=== PATIENT | male | born 1950 | race Caucasian/White ===

== ENCOUNTER → 2017-02-11 | Outpatient (CLI) | payer OTHER ==
--- NOTE | 2017-02-11 10:33 | DIAGNOSTIC IMAGING REPORT ---
CHEST CT WITHOUT CONTRAST CT DOSE: 510.43 mGycm HISTORY: Pulmonary nodule R91.1 Pulmonary [id number] TECHNIQUE: Multiaxial CT images of the chest were performed without contrast. COMPARISON: 08/14/2016 FINDINGS: Unchanged 7 mm well-circumscribed nodule medial right middle lobe. No new or interval findings. Emphysematous changes are considered stable. There are no focal infiltrates. There is no significant mediastinal or hilar adenopathy. IMPRESSION: Stable exam. Unchanging 7 mm right middle lobe nodule. Follow-up per Fleischner criteria. Please refer to below summary of Fleischner criteria recommendations for follow-up of incidental CT nodules (Clay Mcbride, Guidelines for management of small pulmonary nodules detected on CT scans: A statement from the Fleischner Society, Radiology 237: [phone].) SOLID NODULES Solitary nodule size: <6 mm * low risk patients: no follow-up needed * high risk patients: optional CT at 12 months Solitary nodule size: 6-8 mm * low risk patients: follow-up at 6-12 months, then consider further follow-up at 18-24 months * high risk patients: initial follow-up CT at 6-12 months and then at 18-24 months if no change Solitary nodule size: >8 mm * either low or high risk patients - consider follow-up CT at 3 months, and/or CT-PET, and/or biopsy Multiple nodules size: <6 mm * low risk patients: no routine follow-up * high risk patients: optional CT at 12 months Multiple nodules size: 6-8 mm * low risk patients: follow-up at 3-6 months, then consider further follow-up at 18-24 months * high risk patients: follow-up at 3-6 months, then at 18-24 months if no change Multiple nodules size: >8 mm * low risk patients: follow-up at 3-6 months, then consider further follow-up at 18-24 months * high risk patients: follow-up at 3-6 months, then at 18-24 months if no change Note: newly detected indeterminate nodule in persons 35 years of age or older. * Low risk patients: minimal or absent history of smoking and/or other known risk factors * high risk patients: history of smoking or of other known risk factors (e.g. first degree relative with lung cancer, or exposure to asbestos, radon, uranium) * if a nodule up to 8 mm is partly solid or is ground glass further follow-up is required after 24 months to exclude possible slow growing adenocarcinoma (DALIA) SUBSOIL NODULES Solitary pure ground-glass nodule * nodule size <6 mm - no CT follow-up required * nodule size >=6 mm - follow-up CT at 6-12 months, then every 2 years until 5 years Solitary part-solid nodule * nodule size <6 mm - no CT follow-up required * nodule size >=6 mm - follow-up CT at 3-6 months. If unchanged, and solid component remains <6 mm, then annual follow-up for 5 years Multiple subsolid nodules * nodule size <6 mm - follow-up CT at 3-6 months, consider further follow-up at 2 and 4 years if stable * nodule size >=6 mm - follow-up CT at 3-6 months, subsequent management based on the most suspicious nodule(s) Electronically signed by: Jose Morris M.D. 02/11/2017 10:32 AM Dictated Date/Time: 02/11/2017 10:28 AM
== END | disposition home or self-care (01) ==
LOC: C.CTS 10:04
PROVIDERS: ATTEND Internal Medicine Pulmonary Disease
DX: R91.1 Solitary pulmonary nodule (principal)

== ENCOUNTER → 2018-02-11 | Outpatient (CLI) | payer OTHER ==
--- NOTE | 2018-02-11 09:48 | DIAGNOSTIC IMAGING REPORT ---
CT SCAN OF THE CHEST WITHOUT IV CONTRAST CLINICAL HISTORY: Follow-up pulmonary nodule. COMPARISON STUDY: Chest CT dated 02/11/2017 12/05/2015, and 03/04/2015. PET/CT dated 05/16/2015. TECHNIQUE: CT scan of the thorax was performed from the thoracic inlet to the upper abdomen. Images are reviewed in the axial, sagittal, and coronal planes. IV contrast was not administered for this examination as per the referring clinician. A dose lowering technique was utilized adhering to the principles of ALARA. CT DOSE: 727.98 mGy.cm FINDINGS: Thyroid: Atrophic. Thoracic aorta: There is atherosclerotic calcification of the thoracic aorta, which is normal in caliber and demonstrates standard 3-vessel arch anatomy. Heart: The heart is normal in size and without pericardial effusion. The coronary arteries are densely calcified. Lungs and pleural spaces: There is advanced emphysema. No airspace consolidation or pleural effusion is identified. The trachea and central airways are clear. Mild diffuse peribronchial thickening suggests reactive airway disease. There is a 1.3 x 0.9 cm slightly irregular nodule in the right middle lobe seen on image #23. This contains a large coarse calcification, and has not significantly changed dating back to 2014. A 3 mm pleural-based nodule in the right lower lobe seen image #168 is also unchanged from prior studies. No new pulmonary lesion is identified. Mediastinum: There is no mediastinal lymphadenopathy. Odalys: Not well assessed without IV contrast. Axillae: There is no axillary lymphadenopathy. Upper abdomen: A 7.5 cm cyst is partially visualized in the left kidney. 3.5 cm cyst is seen in the upper pole of the right kidney. Bilateral adrenal nodules measure up to 2.[address] criteria for fat-containing adenomas. Skeletal structures: The skeletal structures are osteopenic. No lytic or blastic bony lesions are seen. IMPRESSION: 1. Advanced emphysema. 2. There is no airspace consolidation or pleural effusion. Mild diffuse peribronchial thickening suggests reactive airway disease. Clinical correlation will be required. 3. A 1.3 cm nodule in the right middle lobe containing a coarse calcification has not significant changed in appearance to 2015. Although pathologically indeterminant, long-term stability and the morphologic characteristics suggest a benign etiology. 4. No new pulmonary lesion is identified. Electronically signed by: Norris Pulido M.D. 02/11/2018 9:47 AM Dictated Date/Time: 02/11/2018 9:37 AM
== END | disposition home or self-care (01) ==
LOC: C.CTS 09:22
PROVIDERS: ATTEND Internal Medicine Pulmonary Disease
DX: R93.8 Abnormal findings on diagnostic imaging of other specified body structures (principal); R91.1 Solitary pulmonary nodule; J43.9 Emphysema, unspecified

== ENCOUNTER 2023-04-05 17:29 | Inpatient (IN) ==
[2023-04-05] MEDS ORDERED: POLYETHYLENE (MIRALAX) 17 GM PACK PO PRN (20:28)
--- NOTE | 2023-04-05 20:42 | History & Physical Report ---
Date of Service April 05, 2023 Assessment & Plan (1) Right nephrolithiasis: Plan: 73yo Male with PMH DM2 aspiration PNA esophageal candidiasis, low BP on midodrine, GERD transferred from [facility] for weakness and R sided nephrolithiasis. R sided nephrolithiasis -per CT records from [facility], CD available -consult placed to urology -per [facility] records WBC 17.4 -UA ordered -ordered ceftriaxone 1g daily -ordered NSS 80ml/h 2L total -bladder scan as needed -am CBC, BMP CARLO -per [facility] records creat 1.55, received 1L IVF at [facility] -trend bmp Weakness -ordered PT/OT Hypotension -on midodrine 2.5mg BID GERD -continue protonix DM2 -ordered carb consistent diet -ordered SSI Esophageal candidiasis -patient is on fluconazole 100mg daily at home, uncertain how long he has been on medication, hold for now FENa: carb consistent, NPO midnight Code Status: full DVT PPX: SCDs PT/OT: ordered Dispo: med/tele Fadumo Gallego D.O. PGY 2, FCM (2) Weakness: (3) Low blood pressure: (4) DM2 (diabetes mellitus, type 2): (5) GERD (gastroesophageal reflux disease): (6) Esophageal candidiasis: Admission and Anticipated Discharge Date Admission Date: April 05, 2023 History of Present Illness Chief Complaint: Weakness Primary Care Provider: Jennifer Soni 73yo Male with PMH DM2 aspiration PNA esophageal candidiasis, low BP on midodrine, GERD transferred from [facility] for weakness and R sided nephrolithiasis. Per patient for the past week he has had poor appetite and weakness in his lower extremities, had difficulty walking, denies falls. Patient denies any recent sickness, fever chills nausea vomiting SOB diarrhea pain coughing sneezing, denies recent injury. States he feels hungry now. Normally has BM once every few days. Patient lives with his son Russ, who helps with his medications. Per notes from [facility] patient had recent hospitalization for a UTI. He was brought to [facility] ED for low urine output and altered mental status, CT A/P found concern obstructing calculus on right UVJ, moderate stool burden, chronic pancreatitis. On labs he demonstrated WBC 17.4, creat 1.55. Copy of his CT imaging was sent along with his files. Patient received 1L IVF and 1 amp D50 in [facility] ED, was scheduled to receive ceftriaxone however was never administered. Patient's POA are his sons Russ and Miguel. Allergies Allergy/AdvReac Type Severity Reaction Status Date / Time No Known Allergies Allergy Unverified 04/05/23 21:27 Home Medications Medication Instructions Recorded Confirmed Type insulin aspart U-100 100 unit/mL subcut 04/05/23 History (3 mL) subcutaneous pen (Novolog FlexPen U-100 Insulin aspart) insulin glargine 100 unit/mL (3 unit subcut 04/05/23 History mL) subcutaneous pen (Lantus Solostar U-100 Insulin) magnesium oxide 400 mg (241.3 mg 400 mg PO DAILY 04/05/23 04/05/23 History magnesium) tablet midodrine 2.5 mg tablet 2.5 mg PO BID 04/05/23 04/05/23 History pantoprazole 40 mg tablet,delayed 40 mg PO DAILY 04/05/23 04/05/23 History release Past Med/Surg History Social History Smoking Status: Current every day smoker Cigarettes Per Day: 1 pack a day; Hx Alcohol Use: No Hx Substance Use: No Beliefs That Will Affect Care: None Current Living Situation: Family Other Information That Helps Us Care for You: No Feels Safe at Home: Yes Safety Concerns: Feels Safe At This Time Physical Exam Constitutional: well developed, well nourished, cooperative and comfortable Eyes: PERRL, conjunctivae normal, anicteric sclerae ENMT: external ear and nose normal, oropharynx normal Neck: trachea midline, no thyromegaly Respiratory: normal respiratory effort, lungs clear to auscultation Cardiovascular: Rate/Rhythm: regular rate and regular rhythm Gastrointestinal (Abdomen): Inspection/Auscultation: abdomen normal to inspection Percussion/Palpation: abdomen soft; abdomen nontender Musculoskeletal: Extremities: extremities normal to inspection moves all extremities Skin: no rashes, warm and dry Supervising Physician Co-Signing Physician Notes Attending addendum: I have physically seen this patient, have supervised the medical residents activities, and agree with the H&P unless as otherwise noted. Assessment and Plan: Right-sided nephrolithiasis/leukocytosis- Follow urine culture and sensitivity NSS at 80 mils per hour x2 L Ceftriaxone 1 g IV daily consult urology Acute kidney injury- Creatinine 1.55 at [facility] on admission Repeat laboratories now Hypotension- IV fluids Diabetes mellitus- NPO until seen by urology Placed on Accu-Cheks with NovoLog SSI Check hemoglobin A1c GERD- Continue pantoprazole Remaining orders and notations as noted Resident Activity Tracking Resident Involvement: Resident Care Provided Care Provided: Adult Hospital Medicine
--- NOTE | 2023-04-05 21:20 | Urology Consultation ---
Date of Consultation April 05, 2023 Assessment & Plan (1) Urinary retention: The patient has been admitted on the hospitalist service. From a urologic perspective we recommend the following: We are currently in the process of making attempts to place a Trinh catheter. Please refer to Dr. Corral's note regarding this procedure Recommend avoiding nephrotoxins Recommend providing gentle hydration with IV fluids Recommend following serial labs Additional recommendations be forthcoming based on his clinical course as it unfolds (2) Phimosis: Supervising Physician Co-Signing Physician Notes Attempted to place a catheter blindly as well as scope a catheter in but unsuccessful and patient was significantly uncomfortable. He unfortunately was fed prior to me seeing him. He will need to go to the OR emergently for cyst oscopy, possible urethral dilation with Trinh catheter placement, possible right retrograde pyelogram with right ureteral stent placement and possible dorsal slit versus circumcision with or without meatotomy, possible SP tube placement History of Present Illness Reason for Consultation: Urinary retention Phimosis Attending Physician: Vicky Arellano, DO History of Present Illness This is a 73-year-old male who was transferred to [facility] from [facility]. Patient proved to be a somewhat poor historian so history of present illness was primarily obtained from review of records and discussion with the admitting hospitalist. This patient has been noted to have increased weakness over the past week. Per reports the patient has not been eating and drinking very much and has had decreased urine output. Patient apparently had some difficulty standing today so he was taken to the emergency department at [facility]. While at [facility] [facility] the patient had labs and imaging. Imaging included a CT scan that showed a questionable punctate kidney stone at the right ureterovesical junction with mild hydronephrosis. Labs include a CBC her white blood cell count was elevated 17.4. Hemoglobin, hematocrit, and platelet count are all within normal range. Chemistry profile showed sodium and potassium are within normal range. BUN and creatinine were both elevated at 27 and 1.5. Patient was tested for influenza a and B as well as COVID-19 all of which were negative. While the [facility] emergency department the patient was noted to have a phimosis and he was noted to have urinary retention and attempts were made to place a Trinh catheter to no avail and therefore transfer to [facility] was arranged for urologic care. I visited with the patient at his bedside and at the present time the patient denies any complaints. He specifically does not have any chest pain or shortness of breath. The patient says he does not feel as though his bladder is full. To the best of his knowledge she has been able to urinate small amounts but could not provide any further details. Upon my arrival to the bedside I did asked the staff on the floor to BladderScan this patient and he was bladder scanned for approximately 550 to 650 cc. At the time of my interview he was resting comfortably in bed he was in no distress Allergies Allergy/AdvReac Type Severity Reaction Status Date / Time No Known Allergies Allergy Unverified 04/05/23 21:27 Home Medications Medication Instructions Recorded Confirmed Type insulin aspart U-100 100 unit/mL subcut 04/05/23 History (3 mL) subcutaneous pen (Novolog FlexPen U-100 Insulin aspart) insulin glargine 100 unit/mL (3 unit subcut 04/05/23 History mL) subcutaneous pen (Lantus Solostar U-100 Insulin) magnesium oxide 400 mg (241.3 mg 400 mg PO DAILY 04/05/23 04/05/23 History magnesium) tablet midodrine 2.5 mg tablet 2.5 mg PO BID 04/05/23 04/05/23 History pantoprazole 40 mg tablet,delayed 40 mg PO DAILY 04/05/23 04/05/23 History release Patient History Social History Smoking Status: Current every day smoker Cigarettes Per Day: 1 pack a day; Hx Alcohol Use: No Hx Substance Use: No Beliefs That Will Affect Care: None Current Living Situation: Family Other Information That Helps Us Care for You: No Feels Safe at Home: Yes Safety Concerns: Feels Safe At This Time Review of Systems Constitutional: no fever and no chills Ear, Nose, Mouth, Throat: no hearing loss Respiratory: no cough and no dyspnea Cardiovascular: no chest pain Gastrointestinal: no abdominal pain, no nausea and no vomiting Genitourinary: no dysuria Musculoskeletal: no back pain Integumentary: no rash Neurologic: + generalized weakness Physical Exam Constitutional: + thin; no acute distress Eyes: no conjunctival abnormality ENMT: Ears: no hearing impairment Mouth: no oropharynx abnormality Neck: trachea midline Respiratory: normal respiratory effort; no respiratory distress and no labored breathing Cardiovascular: Rate/Rhythm: regular rate and regular rhythm Gastrointestinal (Abdomen): Soft and nondistended. There is no pain with palpation. Musculoskeletal: No calf tenderness Skin: no rashes Neurologic: Patient is able to follow simple commands and move all 4 extremities without noted focal deficits Genitourinary: No CVA tenderness. Patient's penis was examined the patient was noted to have an unretractable foreskin/phimosis. The neck of the phimosis was quite long and the urethra was not able to be visualized. PG Care Time/CCT Total # of Minutes Spent Total Time Spent with Patient: Total time spent is greater than 50% in coordination of care (as documented) at patient's floor/unit and/or counseling patient: Coding Level of Care Code 55132 INT INP/OBS CARE 3/75MIN Diagnoses Urinary retention R33.9 Phimosis N47.1
[2023-04-05] MEDS: Patient's ALLERGY Info needs ENTERED SCH ×2 (21:25→21:44)
[2023-04-05] MEDS ORDERED: CARBOHYDRATES FOR HYPOGLYCEMIA PO PRN (21:30)
[2023-04-05] MEDS ORDERED: DEXTROSE 50% 50 ML SYRINGE IV PRN (21:30)
[2023-04-05] MEDS ORDERED: GLUCAGON FOR INJ 1 MG VIAL SQ PRN (21:30)
[2023-04-05] MEDS ORDERED: GLUCOSE 10 TAB/TUBE PO PRN (21:30)
[2023-04-05] MEDS ORDERED: GLUCOSE 40% GEL 15 GM TUBE PO PRN (21:30)
[2023-04-05 21:37] LABS: BUN Creatinine Ratio 19.5 (10-20); Calcium 8.7 mg/dl (8.6-10.3); Est GFR (African American) 60.6 ml/min; Est GFR (Non-African American) 52.3 ml/min; Potassium 3.7 mmol/L (3.5-5.1)
[2023-04-05 21:49] LABS: Hemoglobin 16.5 g/dl (14.0-18.0); Mean Corpuscular Hemoglobin 31.3 pg (25.0-34.0); Mean Corpuscular Hgb Conc 34.4 g/dL (32.0-36.0); Mean Corpuscular Volume 91.1 fL (80.0-100.0); Mean Platelet Volume 9.2 fL (9.4-12.4); Platelet Count 196 K/uL (130-400); RDW Coefficient of Variation 12.9 % (11.5-14.5); RDW Standard Deviation 42.9 fL (36.4-46.3); Red Blood Count 5.27 M/uL (4.70-6.10); White Blood Count 15.84 K/ul (4.8-10.8)
[2023-04-05] MEDS: SODIUM CHLORIDE 0.9% 1000ML 1,000 ML IV SCH (22:14)
[2023-04-05] MEDS ORDERED: SUCCINYLCHOLINE 100MG/5ML SYR IV ONE (22:36)
[2023-04-05] MEDS ORDERED: fentaNYL citrate PF 100 MCG/2 ML VIAL ONE ×2 (22:36→23:16)
[2023-04-05] MEDS ORDERED: PROPOFOL IV EMULSION 10 MG/ML 20 ML VIAL IV ONE (22:36)
[2023-04-05] MEDS ORDERED: ePHEDrine sulfate 50 MG/ML AMP IV PRN (22:49)
[2023-04-05] MEDS ORDERED: fentaNYL citrate PF 100 MCG/2 ML VIAL IV PRN (22:49)
[2023-04-05] MEDS ORDERED: ONDANSETRON INJ 2 MG/ML 2 ML VIAL IV PRN (22:49)
[2023-04-05] MEDS ORDERED: ATROPINE SULFATE 0.1 MG/ML 10ML SYR IV PRN (22:49)
--- NOTE | 2023-04-05 22:49 | Anesthesiology Consultation ---
Date of Service April 05, 2023 Assessment & Plan ASA [id number] Proposed Anesthesia Anesthesia Type: General Risk / Benefits Reviewed With: PT / POA / Parent / Guardian, Accepts Plan and Informed Consent Obtained Additional Comments: pt recently ate. deemed emergency by surgeon. level of sedation required would make an unprotected airway incredibly risky History Surgery Operation Date: 04/05/23 10:20 Proposed Procedures p Circumcision - Miguel Corral MD s Cystoscopy - Miguel Corral MD Height/Weight Height: 5 ft 7 in Weight: 53.7 kg Allergies Allergy/AdvReac Type Severity Reaction Status Date / Time No Known Allergies Allergy Unverified 04/05/23 21:27 Medications Home Medications Medication Instructions Recorded Confirmed Last Taken insulin aspart U-100 100 unit/mL subcut 04/05/23 Unknown (3 mL) subcutaneous pen (Novolog FlexPen U-100 Insulin aspart) insulin glargine 100 unit/mL (3 unit subcut 04/05/23 Unknown mL) subcutaneous pen (Lantus Solostar U-100 Insulin) magnesium oxide 400 mg (241.3 mg 400 mg PO DAILY 04/05/23 04/05/23 Unknown magnesium) tablet midodrine 2.5 mg tablet 2.5 mg PO BID 04/05/23 04/05/23 Unknown pantoprazole 40 mg tablet,delayed 40 mg PO DAILY 04/05/23 04/05/23 Unknown release Active Medications Generic Name Dose Route Start Last Admin Trade Name Freq PRN Reason Stop Dose Admin Sodium Chloride 1,000 mls @ 80 mls/hr 04/05/23 21:15 04/05/23 22:39 Nss 1000ml IV 04/06/23 22:14 0 mls/hr .[id number] ISABELL Infusion NPO Date Last Intake of Fluids: 04/05/23 Time Last Intake of Fluids: 01:15 Date Last Intake of Solids: 04/05/23 Time Last Intake of Solids: 20:00 Exercise / Class Metabolic Activity II 4-5 Yardwork/Stairs/Walk up hill Past Anesthesia History No Hx of Anesthesia Complications and No Family Hx of Anesthesia Complications History of PONV No Hx of PONV and No Hx of Motion Sickness Social History Smoking Status: Current every day smoker tobacco type: cigarettes Smoking cigarettes per day: 1 pack a day Hx Alcohol Use: No Hx Substance Use: No Review of Systems denies fever/cough/ colds/ chest pain/ SOB/ MOISES denies MOISES Physical Exam Vital Signs Last Vital Signs Temp 36.9 C 04/05/23 21:08 Pulse 87 04/05/23 21:26 Resp 18 04/05/23 21:08 BP 114/74 04/05/23 21:08 Pulse Ox 92 04/05/23 21:08 O2 Del Method Room Air 04/05/23 21:08 ENMT Mouth: + edentulous; no TMJ abnormality and no dentition abnormality Thyromental Distance: > or= 3.5 Finger Breadths Mallampati Class: II Neck neck extension not limited Respiratory normal respiratory effort; no respiratory distress Auscultation: lungs clear to auscultation bilaterally Cardiovascular Rate/Rhythm: regular rate and regular rhythm Neurologic moves all extremities Psychiatric Orientation: alert and oriented x 3 Testing Laboratory Results 04/05/23 20:57 04/05/23 20:57 04/05/23 20:34 POC Glucose 119 H
[2023-04-05] MEDS: cefTRIAXone SODIUM 1,000 MG in DEXTROSE 5% AD-VAN 50 ML IV SCH (22:51)
[2023-04-05] MEDS ORDERED: PHENYLEPHRINE 100MCG/ML 5ML SYR ONE (23:16)
[2023-04-05] MEDS ORDERED: DIATRIZOATE MEGLUMINE 30% 100ML VIAL INSTIL ONE (23:35)
--- NOTE | 2023-04-05 23:38 | Post Operative Brief Note ---
PG Immediate Post Op with CF Date of Surgery April 05, 2023 Pre & Post Diagnosis Operation Date: 04/05/23 10:20 Pre-Op Diagnosis: (1) Urinary retention: (2) Phimosis: (3) Right nephrolithiasis: Post-Op Diagnosis: (1) Urinary retention: (2) Phimosis: (3) Right nephrolithiasis: I identified the patient and participated in the time-out.: Yes Procedure Operation Date: 04/05/23 10:20 Actual Procedures p Cystoscopy, Urethral Dilation, Retrograde Pylogram, Trinh Placement(Right) - Miguel Corral MD Surgeon Miguel Corral MD Organic Preparation Analyst None Estimated Blood Loss 0 Findings See Below 1. Phimotic foreskin that is unable to retract in the OR 2. Meatal stenosis 3. Right retrograde pyelogram revealed a redundant right distal ureter. I was unable to pass several wires. As patient was asymptomatic and obstruction was questionably from the stone on CT scan, opted not to attempt any further manipulation to avoid any injury to the ureter 4. Trinh catheter placed with return of clear urine Drains Trinh Catheter Anesthesia Type General Complications none
--- NOTE | 2023-04-05 23:45 | Operative Report ---
PG Post Operative Report Pre & Post Diagnosis Operation Date: 04/05/23 10:20 Pre-Op Diagnosis: (1) Urinary retention: (2) Phimosis: (3) Right hydronephrosis Post-Op Diagnosis: (1) Urinary retention: (2) Phimosis: (3) Right hydronephrosis (4) Meatal stenosis I identified the patient and participated in the time-out.: Yes Procedure Operation Date: 04/05/23 10:20 Actual Procedures p Cystoscopy, Urethral Dilation, Retrograde Pylogram with radiographic interpretation, Trinh Placement(Right) - Miguel Corral MD Surgeon Miguel Corral MD [employer] None Estimated Blood Loss 0 Findings See Below 1. Phimotic foreskin that is unable to retract in the OR 2. Meatal stenosis 3. Right retrograde pyelogram revealed a redundant right distal ureter. I was unable to pass several wires. As patient was asymptomatic and obstruction was questionably from the stone on CT scan, opted not to attempt any further manipulation to avoid any injury to the ureter 4. Trinh catheter placed with return of clear urine Specimens Urine for culture Drains 16 Panamanian salt river tip catheter with 10 cc in balloon Anesthesia Type General Complications none Indications 73-year-old male who was transferred from [facility] due to urinary retention and inability to have a catheter placed due to phimosis. The CT scan also showed right hydronephrosis and a questionable stone at the right UVJ which was not entirely clear. Patient was asymptomatic from a right flank pain standpoint. I attempted a catheter at the bedside and also attempted to scope a catheter in without success. Risk and benefits were discussed and patient was taken to the OR for cystoscopy, possible urethral dilation, possible Trinh catheter placement, possible circumcision or dorsal slit, possible meatotomy, possible right retrograde pyelogram with right ureteral stent placement, possible SP tube placement. The patient unfortunately was fed prior to surgery but due to the emergent nature we could not wait for him to be appropriately n.p.o. Description of Procedure After informed consent was obtained, the patient was transported to the operative suite. General anesthesia was induced. They were placed in dorsal lithotomy position and prepped and draped in sterile fashion. They received preoperative ceftriaxone. An appropriate surgical timeout was performed. I advanced a 21 Panamanian rigid cystoscope through his foreskin to attempt to visualize the urethral meatus. I saw the urethral meatus however it was quite stenotic likely due to his phimosis. I was able to advance a 5 Panamanian open- ended catheter to his urethral meatus and then advanced a Super Stiff wire through this. Fluoroscopy confirmed the wire in the bladder. I then sequentially dilated his urethra using S dilators from 8 Panamanian to 20 Panamanian. I then advanced a semirigid ureteroscope over his wire into the bladder. Through the semirigid ureteroscope I attempted to advance a Super Stiff wire in his rig ht ureter up to his kidney to place a stent. I met resistance in the distal ureter. I removed the semirigid ureteroscope and advanced a 5 Panamanian open-ended catheter over the wire to the level of the distal ureter. I shot a retrograde pyelogram which did not show any obvious extravasation but did show redundancy of the ureter. I attempted to advance a sensor wire and a zip wire into his kidney but was unsuccessful. Given that he was asymptomatic and his hydronephrosis was not necessarily clearly from an obstruction, I opted to not further manipulate his ureter and possibly cause a perforation as we do not have interventional radiology in our facility. Given that he was asymptomatic and his main issue was urinary retention, we can likely monitor this conservatively at first but he may require transfer in the future for a right nephrostomy tube. I pulled back the 5 Panamanian open-ended catheter it was in the bladder and confirmed this fluoroscopically. I then advanced the Super Stiff wire back into the bladder and remove the 5 Panamanian open-ended catheter and confirmed appropriate position with fluoroscopy. I then advanced a 16 Panamanian salt river tip catheter over the wire into the bladder with return of clear yellow urine. Wire was removed and balloon was inflated with 10 cc of sterile water. This concluded the end of the case. All counts correct at the end of the case. I was present scrubbed and actively participated for the entirety of the procedure. I attest to the content of the Intraoperative Record and any orders documented therein. Any exceptions are noted below.
--- NOTE | 2023-04-06 00:01 | Anesthesiology Progress Note ---
Date of Service April 06, 2023 Anesthesia Post Procedure Vital Signs Vital Signs: Temp Pulse Pulse Resp BP Pulse Ox O2 Del Method 04/05/23 21:00 95 H 04/05/23 21:26 87 04/05/23 21:08 36.9 C 80 18 114/74 92 Room Air Transfer of Care Handoff Completed per policy Notes Mental Status: alert / awake / arousable and participated in evaluation Patient Amnestic to Procedure: Yes Nausea / Vomiting: adequately controlled Pain: adequately controlled Airway Patency, RR, SpO2: see Notes below (pt 90% ra prior to procedure. will return to floor on 3L nc) BP & HR: stable & adequate Hydration State: stable & adequate Anesthetic Complications: no major complications apparent and Pt Satisfied with anesthetic care
[2023-04-06 00:51] LABS: Appearance Urine Clear (Clear); Bacteria Urine Automated Negative (Negative); Bilirubin Urine Negative (Negative); Blood Urine 3+ (Negative); Color Urine Yellow; Epithelial Cell Urine Auto >30 /lpf (0-5); Glucose Urine UA 1+ (Negative); Ketones Urine Negative (Negative); Leukocyte Esterase Urine 2+ (Negative); Nitrite Urine Negative (Negative); Protein Urine 1+ (Negative); RBC Urine Automated >30 /hpf (0-4); Specific Gravity Urine 1.016 (1.000-1.030); Urobilinogen Urine Negative (Negative); WBC Urine Automated >30 /hpf (0-5); pH Urine 5.5 (4.5-7.5)
--- NOTE | 2023-04-06 05:29 | CT Scan Report ---
Exam(s): CT HEAD Without Contrast EXAM: CT Head Without Intravenous Contrast CLINICAL HISTORY: Reason for exam: stroke alert. TECHNIQUE: Axial computed tomography images of the head/brain without intravenous contrast. CTDI is 37.95 mGy and DLP is 624.41 mGy-cm. Automated exposure control was utilized for the study. A dose lowering technique was utilized adhering to the principles of ALARA. COMPARISON: No relevant prior studies available. FINDINGS: Brain: Mild ischemic microangiopathy. Age appropriate cerebral volume loss. No hemorrhage. Ventricles: Unremarkable. No ventriculomegaly. Bones/joints: Unremarkable. No acute fracture. Soft tissues: Unremarkable. Sinuses: Unremarkable as visualized. No acute sinusitis. Mastoid air cells: Unremarkable as visualized. No mastoid effusion. IMPRESSION: No acute findings in the head/brain. Chronic senescent changes as described above Communications: Call Doctor Stroke Electronically signed by: Ilia Lawson MD 04/06/23 05:28 AM
[2023-04-06] MEDS: ACETAMINOPHEN 325 MG TAB PO PRN ×2 (06:09→23:17)
--- NOTE | 2023-04-06 06:36 | Communication Note ---
Date of Service: April 06, 2023 A stroke alert was called on this patient at approximately 4:30 AM. The nurses noted that the patient was having difficulty following simple commands, seemed less coherent, having difficulty speaking, and difficult to awake. The patient's blood sugar was checked and was noted to be 167. The patient was noted to be afebrile and hemodynamically stable. At the bedside the patient was able to move all 4 extremities but he appeared to have some generalized weakness his speech did not seem as coherent. The patient was taken to CT scan with no acute findings were noted. The hospitalist have subsequently ordered laboratories which are pending. I did discuss with the data entry hospitalist who felt that this could potentially be a metabolic encephalopathy related to anesthesia. He did not feel patient was a candidate for tPA. The patient is currently NPO. Additional recommendations will be forthcoming based on pending lab results and serial clinical exams.
[2023-04-06 08:05] LABS: BUN Creatinine Ratio 19.6 (10-20); Calcium 7.8 mg/dl (8.6-10.3); Creatinine Clr Calc Pharmacy 37.9 ml/min; Magnesium 1.3 mg/dl (1.7-2.4); Potassium 3.4 mmol/L (3.5-5.1)
[2023-04-06 08:08] LABS: Hematocrit (blood only) 40.1 % (42.0-52.0); Hemoglobin 14.4 g/dl (14.0-18.0); Mean Corpuscular Hemoglobin 31.9 pg (25.0-34.0); Mean Corpuscular Hgb Conc 35.9 g/dL (32.0-36.0); Mean Corpuscular Volume 88.9 fL (80.0-100.0); Mean Platelet Volume 9.7 fL (9.4-12.4); Platelet Count 148 K/uL (130-400); RDW Coefficient of Variation 12.8 % (11.5-14.5); Red Blood Count 4.51 M/uL (4.70-6.10); White Blood Count 14.25 K/ul (4.8-10.8)
[2023-04-06] MEDS: INSULIN ASPART PER UNIT CHARGE SC SCH ×4 (09:29→20:53)
[2023-04-06] MEDS: MIDODRINE HCL 2.5 MG TAB PO SCH ×3 (09:30→18:17)
[2023-04-06] MEDS: PANTOprazole 40 MG TAB PO SCH ×2 (09:30→10:47)
--- NOTE | 2023-04-06 09:31 | Urology Progress Note ---
Date of Service April 06, 2023 Assessment & Plan (1) Phimosis: (2) Urinary retention: (3) Hydronephrosis, right: Plan 73-year-old male who was transferred due to phimosis and urinary retention is outside hospital was unable to get a catheter placed. He also had right hydronephrosis and a questionable obstruction from the stone. He is status post cystoscopy, urethral dilation, Trinh catheter placement, right retrograde pyelogram and attempted right ureteral stent placement. Stent was unable to be placed due to redundancy of his ureter. Trinh draining clear urine. Maintain Trinh catheter. Do not remove. Patient is asymptomatic from a right hydronephrosis standpoint and creatinine is stable. We will watch this conservatively Continue to trend labs Urology to follow. Recommend that catheter stay at least 1 to 2 weeks and urology will schedule follow-up for removal in clinic. Admission and Anticipated Discharge Date Admission Date: April 05, 2023 Subjective 73-year-old male who is status post cystoscopy with urethral dilation and Trinh catheter placement with right retrograde pyelogram. A right ureteral stent was attempted however was unsuccessful. Patient was initially transferred due to phimosis and inability to place a catheter. Overnight, a stroke alert was called and he did have a head CT which was negative. He is currently afebrile with a heart rate of 100 and a BP of 96/62. Labs this morning show a leukocytosis of 14.25, down from 15.84. Creatinine is stable at 1.38 and was previously 1.33. Urinalysis taken from the OR showed negative nitrites, 2+ leukocyte Estrace, greater than 30 WBCs, greater than 30 RBCs and no bacteria. Patient denies any complaints today. No flank pain. Not overall bothered by catheter. Review of Systems Review of Systems: 14 point review of systems negative outside of what is listed above in HPI Physical Exam Physical Exam: General: Alert and oriented, no acute distress HEENT: Normocephalic, mucous membranes moist Pulmonary: Nonlabored respirations Abdomen: Nondistended : Uncircumcised phallus. 16 Indonesian cheesh-na tip catheter draining clear yellow urine Extremities: Moves all 4 spontaneously Neuro: No gross deficits Skin: Warm, dry, no rashes noted Results & Data Vital Signs (Past 12 Hours) Vital Signs Temp Pulse Pulse Pulse Resp BP BP 06/24/23 08:00 100 H 04/06/23 08:00 37.3 C 86 18 96/62 L 04/06/23 06:00 37.2 C 108 H 18 125/76 04/06/23 03:58 37.6 C H 99 H 16 125/73 04/06/23 00:30 37.2 C 105 H 20 137/73 04/06/23 01:00 37.0 C 102 H 18 130/72 04/05/23 22:49 37.3 C 99 H 18 138/70 04/05/23 22:49 103 H 04/06/23 00:05 105 H 20 138/69 04/05/23 22:55 101 H 22 129/76 04/06/23 00:15 36.8 C 103 H 22 134/92 04/05/23 22:49 37.0 C 100 H 26 H 133/78 Pulse Ox O2 Del Method O2 Flow Rate 04/06/23 08:00 04/06/23 08:00 96 Nasal Cannula 2 04/06/23 06:00 93 Nasal Cannula 04/06/23 03:58 91 Nasal Cannula 2 04/06/23 00:30 93 Nasal Cannula 2 04/06/23 01:00 93 Nasal Cannula 2 04/05/23 22:49 93 Nasal Cannula 2 04/05/23 22:49 04/06/23 00:05 92 Nasal Cannula 2 04/05/23 22:55 94 Oxymask 3 04/06/23 00:15 93 Nasal Cannula 2 04/05/23 22:49 98 Oxymask 5 PG Care Time/CCT Total # of Minutes Spent Total Time Spent with Patient: Total time spent is greater than 50% in coordination of care (as documented) at patient's floor/unit and/or counseling patient: Coding Level of Care Code 34360 SUB INP/OBS CARE 2/35MIN Diagnoses Phimosis N47.1 Urinary retention R33.9 Hydronephrosis, right N13.30
--- NOTE | 2023-04-06 10:12 | Fluoroscopy Report ---
FL retrograde includes kub CLINICAL HISTORY: CYSTO WITH STENT, POSSIBLE CIRCUMCISION TECHNIQUE: 2 views were obtained with the C-arm in the OR with the above procedure. Total fluoroscopy time was 50.9 seconds. Radiation dose was 3.40 mGy. Comparison: Comparison is made to CT abdomen pelvis 12/05/2015 FINDINGS/IMPRESSION: Intraoperative images were obtained of cystogram, retrograde pyelogram and urete ral dilation. Please correlate with intraoperative fluoroscopy and operative report. ACT 112: Negative or not required by law. Electronically signed by: Jamar Lopez M.D. 04/06/2023 10:10 AM
[2023-04-06] MEDS ORDERED: MAGNESIUM SULFATE / D5W 1 GM/100 ML BAG IV ONE (10:14)
--- NOTE | 2023-04-06 10:18 | Hospitalist Progress Note ---
Date of Service April 06, 2023 Assessment & Plan (1) Metabolic encephalopathy: Plan: Acute undetermined risk questionably resolved confusion and lethargy overnight. Stroke alert called. CT head was without acute concerns for injury patient did not meet criteria for tPA. Patient with phimosis and difficulty urinating on admission may be UTI POA with metabolic encephalopathy remains on ceftriaxone cultures pending Chronic kidney disease stage III hypokalemia repleted Urology recommended his Trinh catheter stay in at least 1 to 2 weeks and will schedule follow-up voiding trial in clinic. Not to be removed at discharge (2) Urinary retention: Plan: 623 taken to the operating roomcystoscopy urethral dilatation retrograde pyelogram and Trinh placement by Dr. Corral Urine cultures pending (3) DM2 (diabetes mellitus, type 2): Plan: Patient is on glargine and aspartate at home remains on basal bolus insulin with frequent checks as an inpatient Admission and Anticipated Discharge Date Admission Date: April 05, 2023 Subjective Patient had episode of confusion stroke alert was called last evening patient had no acute changes on CT scan patient is mildly confused but is oriented to date does conduct himself with casual conversation appropriately No other focal complaints or problems at this time Physical Exam Physical Exam: Awake alert appropriate least oriented x2-3 Card exam is regular lungs are clear Abdomen NABS and soft Trinh catheter is draining dark urine patient was encouraged to drink oral intake Results & Data Results & Data Vital Signs (Past 12 Hours) Vital Signs Temp Pulse Pulse Pulse Resp BP BP 04/06/23 08:00 100 H 04/06/23 08:00 99.1 F 86 18 96/62 L 04/06/23 06:00 99.0 F 108 H 18 125/76 04/06/23 03:58 99.7 F H 99 H 16 125/73 04/06/23 00:30 99.0 F 105 H 20 137/73 04/06/23 01:00 98.6 F 102 H 18 130/72 04/05/23 22:49 99.1 F 99 H 18 138/70 04/05/23 22:49 103 H 04/06/23 00:05 105 H 20 138/69 04/05/23 22:55 101 H 22 129/76 04/06/23 00:15 98.2 F 103 H 22 134/92 04/05/23 22:49 98.6 F 100 H 26 H 133/78 Pulse Ox O2 Del Method O2 Flow Rate 04/06/23 08:00 04/06/23 08:00 96 Nasal Cannula 2 04/06/23 06:00 93 Nasal Cannula 04/06/23 03:58 91 Nasal Cannula 2 04/06/23 00:30 93 Nasal Cannula 2 04/06/23 01:00 93 Nasal Cannula 2 04/05/23 22:49 93 Nasal Cannula 2 04/05/23 22:49 04/06/23 00:05 92 Nasal Cannula 2 04/05/23 22:55 94 Oxymask 3 04/06/23 00:15 93 Nasal Cannula 2 04/05/23 22:49 98 Oxymask 5 Laboratory Results Reviewed CBC reviewed chemistry PG Care Time/CCT Total # of Minutes Spent Total Time Spent with Patient: Total time spent is greater than 50% in coordination of care (as documented) at patient's floor/unit and/or counseling patient: Coding Level of Care Code 43372 SUB INP/OBS CARE 2/35MIN Diagnoses Metabolic encephalopathy G93.41 Urinary retention R33.9 DM2 (diabetes mellitus, type 2) E11.9
[2023-04-06] MEDS: LANTUS PER UNIT CHARGE SQ SCH ×2 (10:46→23:16)
[2023-04-06] MEDS: POTASSIUM CHLORIDE / WTR 10 MEQ/100 ML PLCT IV SCH ×3 (11:57→15:43)
[2023-04-06] MEDS: SODIUM CHLORIDE 0.9% 1000ML 1,000 ML IV SCH (12:37)
[2023-04-06] MEDS: cefTRIAXone SODIUM 1,000 MG in DEXTROSE 5% AD-VAN 50 ML IV SCH (23:03)
--- NOTE | 2023-04-07 02:27 | Billing Data ---
Date of Service April 07, 2023 Coding Level of Care Code 73742 INT INP/OBS CARE
[2023-04-07] MEDS: MIDODRINE HCL 2.5 MG TAB PO SCH ×2 (08:18→16:59)
[2023-04-07] MEDS: PANTOprazole 40 MG TAB PO SCH (08:18)
[2023-04-07] MEDS: INSULIN ASPART PER UNIT CHARGE SC SCH ×4 (08:20→22:32)
[2023-04-07] MEDS: LANTUS PER UNIT CHARGE SQ SCH ×2 (08:20→22:29)
--- NOTE | 2023-04-07 09:13 | Urology Progress Note ---
Date of Service April 07, 2023 Assessment & Plan (1) Hydronephrosis, right: (2) Urinary retention: (3) Phimosis: Plan 73-year-old male who was transferred due to phimosis and urinary retention is outside hospital was unable to get a catheter placed. He also had right hydronephrosis and a questionable obstruction from the stone. He is status post cystoscopy, urethral dilation, Trinh catheter placement, right retrograde pyelogram and attempted right ureteral stent placement. Stent was unable to be placed due to redundancy of his ureter. Trinh draining clear urine. Maintain Trinh catheter. Do not remove. Patient is asymptomatic from a right hydronephrosis standpoint and creatinine is stable. We will watch this conservatively Continue to trend labs He did have a low-grade temperature last night however his urine culture is not growing anything suspicious so this could be from other causes. Can monitor this at this point. Agree with continuing ceftriaxone. Urology to follow Admission and Anticipated Discharge Date Admission Date: April 05, 2023 Subjective No acute issues overnight. Blood pressures remain slightly soft but he is nontachycardic. He did have a one-time temperature of 38.1 last night. Urine culture is growing pinpoint growth. Labs are pending this morning. He continues ceftriaxone. Patient denies any discomfort from the catheter or right flank pain Review of Systems Review of Systems: 14 point review of systems negative outside of what is listed above in HPI Physical Exam Physical Exam: General: Alert and oriented, no acute distress HEENT: Normocephalic, mucous membranes moist Pulmonary: Nonlabored respirations Abdomen: Nondistended : No CVA tenderness. Trinh catheter draining yellow urine Extremities: Moves all 4 spontaneously Neuro: No gross deficits Skin: Warm, dry, no rashes noted Results & Data Vital Signs (Past 12 Hours) Vital Signs Temp Pulse Pulse Resp BP BP Pulse Ox 04/07/23 08:25 37.3 C 88 16 98/48 L 91 04/07/23 07:00 83 04/07/23 01:08 36.9 C 93 H 90 04/07/23 02:29 36.5 C 82 16 98/62 L 97 04/06/23 22:01 93 H 04/07/23 01:45 04/06/23 23:01 38.1 C H 92 H 16 110/58 L 90 O2 Del Method O2 Flow Rate 04/07/23 08:25 Nasal Cannula 04/07/23 07:00 04/07/23 01:08 Room Air 04/07/23 02:29 Nasal Cannula 3 04/06/23 22:01 04/07/23 01:45 Nasal Cannula 2 04/06/23 23:01 Nasal Cannula 3 PG Care Time/CCT Total # of Minutes Spent Total Time Spent with Patient: Total time spent is greater than 50% in coordination of care (as documented) at patient's floor/unit and/or counseling patient: Coding Level of Care Code 60075 SUB INP/OBS CARE 2/35MIN Diagnoses Hydronephrosis, right N13.30 Urinary retention R33.9 Phimosis N47.1
--- NOTE | 2023-04-07 17:18 | Hospitalist Progress Note ---
Date of Service April 07, 2023 Assessment & Plan (1) Right nephrolithiasis: Plan: 73yo Male with PMH DM2 aspiration PNA esophageal candidiasis, low BP on midodrine, GERD transferred from [place] for weakness and R right-sided hydronephrosis no kidney stone was found s. R sided nephrolithiasis this was not confirmed on cystoscopy and retrograde pyelogram 04/05/2023 was taken for cystoscopy with urethral dilatation and and Trinh catheter placement -per CT records from [place], CD available -consult placed to urology urology felt issues were more from phimosis and meatal obstruction intraoperative retrograde pyelogram did not show any kidney stone or obstructive stone -per [place] records WBC 17.4 started on ceftriaxone 1g daily urine cultures here are pending for growth CARLO -Acute kidney injury has resolved patient now with chronic kidney disease stage III Weakness reportedly from family was able to walk with a cane on level surfaces here physical therapy feels he will benefit from rehabilitation. He was observed by myself at the bedside and cannot ambulate even 1 or 2 steps Hypotension -on midodrine 2.5mg BID GERD -continue protonix DM2 -ordered carb consistent diet -ordered SSI Esophageal candidiasis -patient is on fluconazole 100mg daily at home, uncertain how long he has been on medication, this was not restarted FENa: carb consistent, Code Status: full DVT PPX: SCDs (2) DM2 (diabetes mellitus, type 2): (3) GERD (gastroesophageal reflux disease): Plan Given poor performance in physical therapy patient need to be evaluated for short-term subacute rehab Admission and Anticipated Discharge Date Admission Date: April 05, 2023 Subjective pt did poorly with PT today, family at bedside and updated, pt will benefit from rehab Patient with low-grade fever overnight but no persistent focal signs or of new infection. Urine culture currently pinpoint growth re incubating Physical Exam Physical Exam: Awake and oriented appears weak when watching stand cannot shuffle his feet forward needed help to toilet Exam is regular with a systolic murmur Lungs are clear abdomen NABS Trinh is draining kristy urine Results & Data Results & Data Vital Signs (Past 12 Hours) Vital Signs Temp Pulse Pulse Resp BP Pulse Ox O2 Del Method 04/07/23 15:04 98.6 F 85 18 102/56 L 100 Nasal Cannula 04/07/23 14:47 81 04/07/23 11:11 97.6 F 83 18 103/59 L 97 Nasal Cannula 04/07/23 09:51 Nasal Cannula 04/07/23 08:25 99.1 F 88 16 98/48 L 91 Nasal Cannula 04/07/23 07:00 83 O2 Flow Rate 04/07/23 15:04 3 04/07/23 14:47 04/07/23 11:11 04/07/23 09:51 2 04/07/23 08:25 04/07/23 07:00 PG Care Time/CCT Total # of Minutes Spent Total Time Spent with Patient: Total time spent is greater than 50% in coordination of care (as documented) at patient's floor/unit and/or counseling patient: Coding Level of Care Code 20880 SUB INP/OBS CARE 235MIN Diagnoses Right nephrolithiasis N20.0 DM2 (diabetes mellitus, type 2) E11.9 GERD (gastroesophageal reflux disease) K21.9
[2023-04-07] MEDS: ACETAMINOPHEN 325 MG TAB PO PRN (19:42)
[2023-04-07] MEDS: cefTRIAXone SODIUM 1,000 MG in DEXTROSE 5% AD-VAN 50 ML IV SCH (22:27)
[2023-04-08] MEDS: MIDODRINE HCL 2.5 MG TAB PO SCH ×2 (07:46→17:20)
[2023-04-08] MEDS: PANTOprazole 40 MG TAB PO SCH (07:46)
[2023-04-08] MEDS: INSULIN ASPART PER UNIT CHARGE SC SCH ×4 (07:48→22:19)
[2023-04-08] MEDS: LANTUS PER UNIT CHARGE SQ SCH ×2 (07:54→22:21)
--- NOTE | 2023-04-08 09:10 | Urology Progress Note ---
Date of Service April 08, 2023 Assessment & Plan (1) Hydronephrosis, right: (2) Urinary retention: (3) Phimosis: Plan 73-year-old male who was transferred due to phimosis and urinary retention is outside hospital was unable to get a catheter placed. He also had right hydronephrosis and a questionable obstruction from the stone. He is status post cystoscopy, urethral dilation, Trinh catheter placement, right retrograde pyelogram and attempted right ureteral stent placement. Stent was unable to be placed due to redundancy of his ureter. Afebrile and hemodynamically stable. Labs reviewed- Leukocytosis improved to 11.80, creatinine stable. Urine culture with pin-point growth present, reincubating. Trinh draining clear urine. Maintain Trinh catheter. Do not remove. Patient is asymptomatic from a right hydronephrosis standpoint and creatinine is stable. Will monitor conservatively. Continue to trend labs. Continue antibiotics and tailor as culture data becomes available. Will arrange outpatient follow-up with our service for catheter removal. Urology to follow peripherally. Please contact us with any further questions, concerns, or changes in patient status. Admission and Anticipated Discharge Date Admission Date: April 05, 2023 Subjective Pt examined at bedside this AM. Awake, resting in bed on arrival. No acute distress. No reported pain at present. Denies fevers, chills, nausea, vomiting. Trinh intact, draining clear yellow urine. Review of Systems Constitutional: as per Subjective / HPI Gastrointestinal: as per Subjective / HPI Genitourinary: + as per Subjective / HPI Physical Exam Constitutional: no acute distress Respiratory: normal respiratory effort; no respiratory distress and no labored breathing Skin: No visible rashes or lesions to exposed skin areas Neurologic: awake Psychiatric: Orientation: alert and cooperative Genitourinary: Trinh catheter intact Results & Data Vital Signs (Past 12 Hours) Vital Signs Temp Pulse Pulse Resp BP Pulse Ox O2 Del Method 04/08/23 07:23 36.6 C 81 18 116/71 94 Nasal Cannula 04/08/23 03:21 37.1 C 83 18 98/59 L 90 Nasal Cannula 04/08/23 00:32 Room Air 04/07/23 22:00 76 04/07/23 23:00 36.9 C 76 18 100/62 91 Room Air O2 Flow Rate 04/08/23 07:23 04/08/23 03:21 2 04/08/23 00:32 04/07/23 22:00 04/07/23 23:00 PG Care Time/CCT Total # of Minutes Spent Total Time Spent with Patient: Total time spent is greater than 50% in coordination of care (as documented) at patient's floor/unit and/or counseling patient: Coding Level of Care Code 83256 SUB INP/OBS CARE 2/35MIN Diagnoses Hydronephrosis, right N13.30 Urinary retention R33.9 Phimosis N47.1
[2023-04-08 09:35] LABS: Hematocrit (blood only) 40.4 % (42.0-52.0); Hemoglobin 14.4 g/dl (14.0-18.0); Mean Corpuscular Hgb Conc 35.6 g/dL (32.0-36.0); Mean Corpuscular Volume 86.9 fL (80.0-100.0); Mean Platelet Volume 9.4 fL (9.4-12.4); Platelet Count 128 K/uL (130-400); RDW Coefficient of Variation 12.5 % (11.5-14.5); RDW Standard Deviation 39.8 fL (36.4-46.3); Red Blood Count 4.65 M/uL (4.70-6.10)
[2023-04-08 09:49] LABS: BUN Creatinine Ratio 22.9 (10-20); Calcium 7.7 mg/dl (8.6-10.3); Creatinine Clr Calc Pharmacy 45.6 ml/min; Est GFR (African American) 77.1 ml/min; Est GFR (Non-African American) 66.5 ml/min; Potassium 2.9 mmol/L (3.5-5.1)
--- NOTE | 2023-04-08 17:09 | Hospitalist Progress Note ---
Date of Service April 08, 2023 Assessment & Plan (1) Right nephrolithiasis: Plan: 73yo Male with PMH DM2 aspiration PNA esophageal candidiasis, low BP on midodrine, GERD transferred from [place] for weakness and R right-sided hydronephrosis no kidney stone was found s. R sided nephrolithiasis this was not confirmed on cystoscopy and retrograde pyelogram 04/05/2023 was taken for cystoscopy with urethral dilatation and and Trinh catheter placement -per CT records from [place], CD available -consult placed to urology urology felt issues were more from phimosis and meatal obstruction intraoperative retrograde pyelogram did not show any kidney stone or obstructive stone -per [facility] records WBC 17.4 started on ceftriaxone 1g daily urine cultures here are pending for growth CARLO -Acute kidney injury has resolved patient now with chronic kidney disease stage III, with electrolyte deficiency will need supplementation Weakness reportedly from family was able to walk with a cane on level surfaces here physical therapy feels he will benefit from rehabilitation. He continues to have ambulation challenges Hypotension -on midodrine 2.5mg BID GERD -continue protonix DM2 -ordered carb consistent diet -ordered SSI Esophageal candidiasis -patient is on fluconazole 100mg daily at home, uncertain how long he has been on medication, this was not restarted Code Status: full (2) DM2 (diabetes mellitus, type 2): (3) GERD (gastroesophageal reflux disease): Plan Given poor performance in physical therapy patient need to be evaluated for short-term subacute rehab Admission and Anticipated Discharge Date Admission Date: April 05, 2023 Subjective Patient has poor performance status is physical therapy still is resisting going to a [facility]p facility for subacute rehab but he really is not safe to go home. Family's been supportive of the rehab situation. Be profoundly hypokalemic on presentation will be repleted with oral and IV supplementation plus additional magnesium administered Physical Exam Physical Exam: Awake and oriented appears weak when watching stand cannot shuffle his feet forward needed help to toilet Exam is regular with a systolic murmur Lungs are clear abdomen NABS Trinh is draining kristy urine Results & Data Results & Data Vital Signs (Past 12 Hours) Vital Signs Temp Pulse Pulse Resp BP BP Pulse Ox 04/08/23 15:23 97.0 F L 90 18 101/58 L 97 04/08/23 14:00 04/08/23 08:00 83 04/08/23 11:04 98.4 F 80 16 106/67 93 04/08/23 07:23 97.9 F 81 18 116/71 94 O2 Del Method O2 Flow Rate 04/08/23 15:23 Nasal Cannula 2 04/08/23 14:00 Nasal Cannula 2 04/08/23 08:00 04/08/23 11:04 Room Air 04/08/23 07:23 Nasal Cannula Laboratory Results reviewed chemistry reviewed cbc PG Care Time/CCT Total # of Minutes Spent Total Time Spent with Patient: Total time spent is greater than 50% in coordination of care (as documented) at patient's floor/unit and/or counseling patient: Coding Level of Care Code 57257 SUB INP/OBS CARE 235MIN Diagnoses Right nephrolithiasis N20.0 DM2 (diabetes mellitus, type 2) E11.9 GERD (gastroesophageal reflux disease) K21.9
[2023-04-08] MEDS ORDERED: MAGNESIUM SULFATE / D5W 1 GM/100 ML BAG IV ONE (17:15)
[2023-04-08] MEDS: POTASSIUM CHLORIDE / WTR 10 MEQ/100 ML PLCT IV SCH ×3 (17:33→19:28)
[2023-04-08] MEDS: POTASSIUM CHLORIDE CRTAB 20 MEQ TABCR PO SCH (22:14)
[2023-04-08] MEDS: cefTRIAXone SODIUM 1,000 MG in DEXTROSE 5% AD-VAN 50 ML IV SCH (22:16)
[2023-04-09 08:13] LABS: Hematocrit (blood only) 42.3 % (42.0-52.0); Hemoglobin 15.4 g/dl (14.0-18.0); Mean Corpuscular Hemoglobin 31.6 pg (25.0-34.0); Mean Corpuscular Hgb Conc 36.4 g/dL (32.0-36.0); Mean Corpuscular Volume 86.9 fL (80.0-100.0); Mean Platelet Volume 9.5 fL (9.4-12.4); Platelet Count 153 K/uL (130-400); RDW Coefficient of Variation 12.7 % (11.5-14.5); RDW Standard Deviation 40.4 fL (36.4-46.3); Red Blood Count 4.87 M/uL (4.70-6.10); White Blood Count 12.04 K/ul (4.8-10.8)
[2023-04-09 08:22] LABS: BUN Creatinine Ratio 25.2 (10-20); Creatinine Clr Calc Pharmacy 45.3 ml/min; Est GFR (African American) 78.8 ml/min; Magnesium 1.7 mg/dl (1.7-2.4)
[2023-04-09] MEDS: INSULIN ASPART PER UNIT CHARGE SC SCH ×4 (08:49→19:55)
[2023-04-09] MEDS: PANTOprazole 40 MG TAB PO SCH (08:51)
[2023-04-09] MEDS: MIDODRINE HCL 2.5 MG TAB PO SCH ×2 (08:51→17:16)
[2023-04-09] MEDS: POTASSIUM CHLORIDE CRTAB 20 MEQ TABCR PO SCH ×3 (08:51→20:01)
[2023-04-09] MEDS: LANTUS PER UNIT CHARGE SQ SCH ×2 (08:56→19:59)
--- NOTE | 2023-04-09 11:11 | Hospitalist Progress Note ---
Date of Service April 09, 2023 Assessment & Plan (1) Right nephrolithiasis: Plan: 73yo Male with PMH DM2 aspiration PNA esophageal candidiasis, low BP on midodrine, GERD transferred from [place] for weakness and R right-sided hydronephrosis no kidney stone was found s. R sided nephrolithiasis this was not confirmed on cystoscopy and retrograde pyelogram 04/05/2023 was taken for cystoscopy with urethral dilatation and and Trinh catheter placement -per CT records from [place], -consult placed to urology urology felt issues were more from phimosis and meatal obstruction intraoperative retrograde pyelogram did not show any kidney stone or obstructive stone -per [facility] records WBC 17.4 started on ceftriaxone 1g daily urine cultures here are pending for growth CARLO -Acute kidney injury has resolved patient now with chronic kidney disease stage III, with electrolyte deficiency will need supplementation Persistent hypokalemia continue repletion also replete magnesium Weakness reportedly from family was able to walk with a cane on level surfaces here physical therapy feels he will benefit from rehabilitation. He continues to have ambulation challenges even with a walker Hypotension -on midodrine 2.5mg BID GERD -continue protonix DM2 -ordered carb consistent diet -ordered SSI Esophageal candidiasis -patient is on fluconazole 100mg daily at home, uncertain how long he has been on medication, this was not restarted Underweight with BMI 18.7 Code Status: full (2) DM2 (diabetes mellitus, type 2): (3) GERD (gastroesophageal reflux disease): Plan Given poor performance in physical therapy patient need to be evaluated for short-term subacute rehab Admission and Anticipated Discharge Date Admission Date: April 05, 2023 Subjective Patient has poor performance status is physical therapy still is resisting going to a custodial facility for subacute rehab but he really is not safe to go home. Family's been supportive of the rehab situation. Continues with hypokalemic p.o. and IV repleted, magnesium administered Physical Exam Physical Exam: Awake and oriented appears weak when watching stand cannot shuffle his feet forward needed help to toilet Exam is regular with a systolic murmur Lungs are clear abdomen NABS Trinh is draining kristy urine Results & Data Results & Data Vital Signs (Past 12 Hours) Vital Signs Temp Pulse Pulse Resp BP BP Pulse Ox 04/09/23 10:57 97.7 F 77 18 101/66 93 04/09/23 09:56 04/09/23 07:49 80 04/09/23 07:49 98.1 F 82 18 110/70 92 04/09/23 02:13 98.2 F 84 16 108/66 92 04/08/23 23:24 70 O2 Del Method O2 Flow Rate 04/09/23 10:57 Room Air 04/09/23 09:56 Room Air 04/09/23 07:49 04/09/23 07:49 Room Air 04/09/23 02:13 Nasal Cannula 2 04/08/23 23:24 PG Care Time/CCT Total # of Minutes Spent Total Time Spent with Patient: Total time spent is greater than 50% in coordination of care (as documented) at patient's floor/unit and/or counseling patient: Coding Level of Care Code 81436 SUB INP/OBS CARE MIN Diagnoses Right nephrolithiasis N20.0 DM2 (diabetes mellitus, type 2) E11.9 GERD (gastroesophageal reflux disease) K21.9
[2023-04-09] MEDS: ASPIRIN 81 MG ECTAB PO SCH (12:23)
--- NOTE | 2023-04-09 12:39 | CT Scan Report ---
CT head/brain wo con CLINICAL HISTORY: re eval for stroke Technique: Contiguous axial CT images of the head were acquired from the base of the skull to the zhao loreta without intravenous contrast administration. Images were viewed in brain, subdural and bone [facility]. Automated dose lowering techniques and/or adjustment according to patient size were utilized for this exam. Comparison: Comparison is made to CT head 04/06/2023 Findings: The ventricles, basal cisterns, and cerebral sulci are normal. There is no acute intracranial hemorrh age or evidence of acute territorial infarction. Neither mass effect, shift of the midline structures , nor abnormal extra-axial fluid collections are shown. Imaged portions of the paranasal sinuses and mastoid air cells are clear. The orbits appear normal. There are no acute fractures of the calvaria or scalp swelling. Impression: No acute intracranial hemorrhage, no evidence of acute territorial infarction or other acute intracra nial disease process. ACT 112: Negative or not required by law. Electronically signed by: Jamar Lopez M.D. 04/09/2023 12:37 PM
[2023-04-09] MEDS: POTASSIUM CHLORIDE / WTR 10 MEQ/100 ML PLCT IV SCH ×3 (15:41→18:19)
[2023-04-09 16:54] LABS: BUN Creatinine Ratio 24.6 (10-20); Calcium 7.9 mg/dl (8.6-10.3); Creatinine Clr Calc Pharmacy 42.5 ml/min; Potassium 3.3 mmol/L (3.5-5.1)
[2023-04-10] MEDS: POTASSIUM CHLORIDE CRTAB 20 MEQ TABCR PO SCH ×2 (08:47→20:17)
[2023-04-10] MEDS: PANTOprazole 40 MG TAB PO SCH (08:48)
[2023-04-10] MEDS: ASPIRIN 81 MG ECTAB PO SCH (08:48)
[2023-04-10] MEDS: MIDODRINE HCL 2.5 MG TAB PO SCH ×2 (08:48→17:16)
[2023-04-10] MEDS: LANTUS PER UNIT CHARGE SQ SCH ×2 (08:53→20:17)
[2023-04-10] MEDS: INSULIN ASPART PER UNIT CHARGE SC SCH ×4 (08:53→20:17)
[2023-04-10 09:02] LABS: Hematocrit (blood only) 44.8 % (42.0-52.0); Hemoglobin 15.6 g/dl (14.0-18.0); Mean Corpuscular Hemoglobin 31.2 pg (25.0-34.0); Mean Corpuscular Hgb Conc 34.8 g/dL (32.0-36.0); Mean Corpuscular Volume 89.6 fL (80.0-100.0); Mean Platelet Volume 9.2 fL (9.4-12.4); Platelet Count 195 K/uL (130-400); RDW Coefficient of Variation 12.9 % (11.5-14.5); RDW Standard Deviation 42.5 fL (36.4-46.3); White Blood Count 13.23 K/ul (4.8-10.8)
[2023-04-10 09:21] LABS: BUN Creatinine Ratio 20.9 (10-20); Creatinine Clr Calc Pharmacy 42.2 ml/min; Est GFR (African American) 72.3 ml/min; Est GFR (Non-African American) 62.3 ml/min; Magnesium 1.6 mg/dl (1.7-2.4); Potassium 3.9 mmol/L (3.5-5.1)
--- NOTE | 2023-04-10 12:45 | Urology Progress Note ---
Date of Service April 10, 2023 Assessment & Plan (1) Hydronephrosis, right: (2) Urinary retention: (3) Phimosis: Plan 73-year-old male who was transferred due to phimosis and urinary retention as outside hospital was unable to get a catheter placed. He also had right hydronephrosis and a questionable obstruction from a stone. He is status post cystoscopy, urethral dilation, Trinh catheter placement, right retrograde pyelogram and attempted right ureteral stent placement on 04/05/[address] Corral. Right retrograde pyelogram revealed a redundant right distal ureter. Stent was unable to be placed due to redundancy of his ureter. Remains afebrile and hemodynamically stable. Labs reviewed- Leukocytosis 13.23 (12.04 yesterday) and creatinine remains stable. Urine culture final with low counts shila albicans/dubliniensis- Can consider short course of Fluconazole. Trinh draining clear urine. Maintain Trinh catheter. Do not remove. Patient remains asymptomatic from a right hydronephrosis standpoint and creatinine is stable. Will monitor conservatively. Will arrange outpatient follow-up with our service for catheter removal and continued care. Urology will sign-off. Please contact us with any further questions, concerns, or changes in patient status. Admission and Anticipated Discharge Date Admission Date: April 05, 2023 Subjective Pt examined at bedside this AM. Awake, sitting in bedside chair on arrival. No acute distress. No reported pain at present. Denies fevers, chills, nausea, vomiting. Trinh intact, draining clear yellow urine. Review of Systems Constitutional: as per Subjective / HPI Gastrointestinal: as per Subjective / HPI Genitourinary: + as per Subjective / HPI Physical Exam Constitutional: no acute distress Respiratory: normal respiratory effort; no respiratory distress and no labored breathing Neurologic: awake Psychiatric: Orientation: alert and cooperative Genitourinary: Trinh intact Results & Data Vital Signs (Past 12 Hours) Vital Signs Temp Pulse Pulse Pulse Resp BP Pulse Ox 04/10/23 11:17 04/10/23 10:52 36.2 C L 74 18 102/61 94 04/10/23 07:30 36.5 C 85 18 116/69 90 04/10/23 07:33 80 04/10/23 03:37 36.7 C 85 18 113/65 91 O2 Del Method 06/28/23 11:17 Room Air 04/10/23 10:52 Room Air 04/10/23 07:30 Room Air 04/10/23 07:33 04/10/23 03:37 Room Air PG Care Time/CCT Total # of Minutes Spent Total Time Spent with Patient: Total time spent is greater than 50% in coordination of care (as documented) at patient's floor/unit and/or counseling patient: Coding Level of Care Code 50079 SUB INP/OBS CARE 2/35MIN Diagnoses Hydronephrosis, right N13.30 Urinary retention R33.9 Phimosis N47.1
--- NOTE | 2023-04-10 18:18 | Hospitalist Progress Note ---
Date of Service April 10, 2023 Assessment & Plan (1) Right nephrolithiasis: Plan: 73yo Male with PMH DM2 aspiration PNA esophageal candidiasis, low BP on midodrine, GERD transferred from [place] for weakness and R right-sided hydronephrosis no kidney stone was found. R sided nephrolithiasis this was not confirmed on cystoscopy and retrograde pyelogram 04/05/2023 was taken for cystoscopy with urethral dilatation and and Trinh catheter placement -per CT records from [place], -consult placed to urology urology felt issues were more from phimosis and meatal obstruction intraoperative retrograde pyelogram did not show any kidney stone or obstructive stone -per [facility] records WBC 17.4 started on ceftriaxone 1g daily urine cultures here are only with 6000 colonies of Tere albicans. I personally phoned [facility] and they do not have a specimen on file subsequently no additional treatment is rendered Patient to be discharged with Trinh catheter and have an in office voiding trial 2 weeks after discharge CARLO resolved -Acute kidney injury has resolved patient now with chronic kidney disease stage III, with electrolyte deficiency will need supplementation Persistent hypokalemia continue repletion also replete magnesium Weakness reportedly from family was able to walk with a cane on level surfaces here physical therapy feels he will benefit from rehabilitation. He continues to have ambulation challenges even with a walker Patient with persistent hypokalemia hypomagnesemia required repletion prior to disposition Hypotension -on midodrine 2.5mg BID GERD -continue protonix DM2 -ordered carb consistent diet -ordered SSI Esophageal candidiasis -patient is on fluconazole 100mg daily at home, uncertain how long he has been on medication, this was not restarted Underweight with BMI 18.7 Code Status: full (2) DM2 (diabetes mellitus, type 2): (3) GERD (gastroesophageal reflux disease): Plan Given poor performance in physical therapy patient need to be evaluated for short-term subacute rehab Admission and Anticipated Discharge Date Admission Date: April 05, 2023 Subjective Patient improved needing rehab from mostly for deconditioning standpoint urology is visiting and is endorsing keeping Trinh catheter at time of discharge Physical Exam Physical Exam: Awake and oriented appears weak when watching stand cannot shuffle his feet forward needed help to toilet Exam is regular with a systolic murmur Lungs are clear abdomen NABS Trinh is draining kristy urine Results & Data Results & Data Vital Signs (Past 12 Hours) Vital Signs Temp Pulse Pulse Resp BP Pulse Ox O2 Del Method 04/10/23 15:00 105 H 04/10/23 15:57 97.3 F L 71 18 103/67 94 Room Air 04/10/23 11:17 Room Air 04/10/23 10:52 97.2 F L 74 18 102/61 94 Room Air 04/10/23 07:30 97.7 F 85 18 116/69 90 Room Air 04/10/23 07:33 80 Laboratory Results Reviewed CBC Reviewed chemistry Reviewed magnesium PG Care Time/CCT Total # of Minutes Spent Total Time Spent with Patient: Total time spent is greater than 50% in coordination of care (as documented) at patient's floor/unit and/or counseling patient: Coding Level of Care Code 34526 SUB INP/OBS CARE 2/35MIN Diagnoses Right nephrolithiasis N20.0 DM2 (diabetes mellitus, type 2) E11.9 GERD (gastroesophageal reflux disease) K21.9
[2023-04-10] MEDS ORDERED: MAGNESIUM SULFATE / D5W 1 GM/100 ML BAG IV ONE (18:30)
--- NOTE | 2023-04-10 22:46 | Communication Note ---
Date of Service: April 10, 2023 I was notified by RN via [place] text at approximately 10:18 PM that patient was complaining of urinary retention. The patient was complaining of severe pres sure in his bladder and suprapubic pain. The RN performed a bladder scan which was notable for approximately 1077 cc of fluid in his bladder. I responded to the bedside within 5 minutes. This patient is known to the urology service as he was recently transferred to [facility] from [facility] secondary to urinary retention and severe phimosis. This condition required a trip to the operating room where patient underwent a cystoscopy with urethral dilatation and Trinh catheter placement. I arrived at the bedside as noted above and the Trinh catheter was not draining anything. I then flushed and irrigated the Trinh catheter at the bedside. When aspirating the catheter a large piece of debris was retrieved in the aspiration syringe. This piece of debris appeared to be causing obstruction of the Trinh catheter. I flushed and aspirated the catheter again very easily following retrieval of this piece of debris and then the Trinh catheter was placed to gravity drainage. The patient immediately drained approximately 1000 cc of clear urine. With this intervention the patient noted a great deal of symptomatic relief. We will continue to monitor the patient's Trinh catheter and if he becomes obstructed again similar interventions can be performed.
--- NOTE | 2023-04-11 05:14 | Communication Note ---
Date of Service: April 11, 2023 The 8 AM. She was concerned that patient was complaining of abdominal pain in the suprapubic area similar to what was noted earlier this evening consistent with urinary retention. A bladder scan showed 730 cc of urine in the bladder. The RN tried irrigating the Trinh catheter but was unsuccessful. I responded to the bedside within 5 minutes and easily irrigated and flush the patient's catheter. Similar to previous episode I obtained a piece of debris with these flushing and irrigation attempts it must of been obstructing the bladder because as this debris was removed from the Trinh catheter the patient immediately had a brisk diuresis of approximately 1000 cc of clear urine. The patient noted marked symptomatic relief with this modality.
[2023-04-11 06:23] LABS: Hematocrit (blood only) 41.9 % (42.0-52.0); Hemoglobin 14.8 g/dl (14.0-18.0); Mean Corpuscular Hemoglobin 30.6 pg (25.0-34.0); Mean Corpuscular Hgb Conc 35.3 g/dL (32.0-36.0); Mean Corpuscular Volume 86.7 fL (80.0-100.0); Mean Platelet Volume 9.1 fL (9.4-12.4); Platelet Count 239 K/uL (130-400); RDW Coefficient of Variation 12.6 % (11.5-14.5); Red Blood Count 4.83 M/uL (4.70-6.10); White Blood Count 14.14 K/ul (4.8-10.8)
[2023-04-11 06:57] LABS: BUN Creatinine Ratio 22.7 (10-20); Calcium 7.7 mg/dl (8.6-10.3); Creatinine Clr Calc Pharmacy 40.7 ml/min; Est GFR (African American) 69.3 ml/min; Est GFR (Non-African American) 59.8 ml/min; Magnesium 1.7 mg/dl (1.7-2.4); Potassium 3.5 mmol/L (3.5-5.1)
[2023-04-11] MEDS: MIDODRINE HCL 2.5 MG TAB PO SCH (08:24)
[2023-04-11] MEDS: PANTOprazole 40 MG TAB PO SCH (08:24)
[2023-04-11] MEDS: ASPIRIN 81 MG ECTAB PO SCH (08:24)
[2023-04-11] MEDS: INSULIN ASPART PER UNIT CHARGE SC SCH ×2 (08:24→12:49)
[2023-04-11] MEDS: LANTUS PER UNIT CHARGE SQ SCH (08:27)
--- NOTE | 2023-04-11 09:22 | Urology Progress Note ---
Date of Service April 11, 2023 Assessment & Plan (1) Hydronephrosis, right: (2) Urinary retention: (3) Phimosis: Plan 73-year-old male who was transferred due to phimosis and urinary retention as outside hospital was unable to get a catheter placed. He also had right hydronephrosis and a questionable obstruction from a stone. He is status post cystoscopy, urethral dilation, Trinh catheter placement, right retrograde pyelogram and attempted right ureteral stent placement on 04/05/[address] Corral. Right retrograde pyelogram revealed a redundant right distal ureter. Stent was unable to be placed due to redundancy of his ureter. Remains afebrile and hemodynamically stable. Labs reviewed- Leukocytosis 14.14 (13.23 yesterday) and creatinine remains stable. Urine culture final with low counts shila albicans/dubliniensis- Consider short course of Fluconazole. Pt reported abdominal discomfort this morning, was bladder scanned for >600. Attempted to irrigate/flush catheter at bedside but was unsuccessful. CT abd pelvis obtained showing a markedly distended bladder with a bladder catheter in place. Bilateral hydro noted without obstructing stone or lesion, likely due to degree of bladder distention. Using sterile technique, the current catheter was exchanged to a 22Fr knik tip over a wire into the bladder with return of clear yellow urine at bedside by myself and Dr. Mccoy.Pt tolerated well. Trinh draining clear urine. Maintain Trinh catheter. Do not remove.OK to manually irrigate as needed for retention, suprapubic pain. Will arrange outpatient follow-up with our service for catheter removal and continued care. Urology will sign-off. Please contact us with any further questions, concerns, or changes in patient status. Case and plan discussed with Dr. Mccoy. Admission and Anticipated Discharge Date Admission Date: April 05, 2023 Subjective Pt examined at bedside this AM. Awake, resting in bed on arrival. Patient having severe lower abd pain/suprapubic pain. Nursing has attempted to flush catheter without success. There is approx 500ml clear yellow urine in bag. Patient did require catheter irrigation overnight x2 due to bladder pressure/retention. Debris removed with flushing and patient noted marked symptomatic relief with this modality. Review of Systems Constitutional: as per Subjective / HPI Gastrointestinal: as per Subjective / HPI Genitourinary: + as per Subjective / HPI Physical Exam Constitutional: no acute distress Respiratory: normal respiratory effort; no respiratory distress and no labored breathing Gastrointestinal (Abdomen): Suprapubic tenderness Neurologic: awake Psychiatric: Orientation: alert and cooperative Genitourinary: Trinh intact Results & Data Vital Signs (Past 12 Hours) Vital Signs Temp Pulse Pulse Resp BP BP Pulse Ox 04/11/23 07:45 36.8 C 74 18 108/72 92 04/11/23 07:15 78 04/11/23 04:00 36.9 C 77 18 108/62 93 04/10/23 23:00 36.5 C 75 18 108/70 94 04/10/23 23:00 85 O2 Del Method 04/11/23 07:45 Room Air 04/11/23 07:15 04/11/23 04:00 Room Air 04/10/23 23:00 Room Air 04/10/23 23:00 PG Care Time/CCT Total # of Minutes Spent Total Time Spent with Patient: Total time spent is greater than 50% in coordination of care (as documented) at patient's floor/unit and/or counseling patient: Coding Level of Care Code 39216 SUB INP/OBS CARE 2/35MIN Diagnoses Hydronephrosis, right N13.30 Urinary retention R33.9 Phimosis N47.1
[2023-04-11] MEDS ORDERED: LIDOCAINE 2% JELLY 5 ML TUBE EXT ONE ×2 (12:36→12:51)
--- NOTE | 2023-04-11 12:52 | CT Scan Report ---
CT SCAN OF THE ABDOMEN AND PELVIS WITHOUT IV CONTRAST CLINICAL HISTORY: Follow-up right-sided hydronephrosis. COMPARISON STUDY: Abdominal CT scans dated 04/05/2023 and 12/05/2015. TECHNIQUE: CT scan of the abdomen and pelvis is performed from the lung bases to the proximal femora. Images are reviewed in the axial, sagittal, and coronal planes. IV contrast was not administered for this examination. A dose lowering technique was utilized adhering to the principles of ALARA. CT DOSE: 480.30 mGy.cm FINDINGS: Lung bases: The heart is normal in size and without pericardial effusion. The coronary arteries are d ensely calcified. Emphysematous change is noted. There is bibasilar scarring/atelectasis. Tree-in-bud opacities are seen in the lingula. A calcified nodule in the right middle lobe is unchanged from 201 6. Liver: The unenhanced liver is normal in size, contour, and attenuation. There is no intrahepatic balbir iary ductal dilatation. Gallbladder: Hyperdense material within the gallbladder lumen could represent small gallstones versus vicariously excreted contrast. The gallbladder is otherwise normal in appearance. Spleen: Normal in size and attenuation. Pancreas: The pancreas is atrophic diffuse parenchymal calcifications indicate chronic pancreatitis. There are large calculi within the pancreatic duct in the pancreatic head. The upstream pancreatic du ct is dilated measuring up to 8 mm. This is similar to previous. Adrenal glands: Unremarkable. Kidneys: The unenhanced kidneys are normal in size. There is mild to moderate right hydroureteronephr osis. No obstructing stone or lesion is identified. There is mild hydronephrosis on the left. There i s a 4 mm nonobstructing calculus in the right upper pole. There are likely punctate nonobstructing le ft renal calculi. No ureteral stone is seen. A 2.9 cm cyst is seen in the upper pole on the right and a 7.5 cm cyst is seen on the left. It is similar to previous. Abdominal vasculature: The abdominal aorta is normal in course and caliber noting moderate to advance d atherosclerotic calcification. Bowel: There is moderate colonic diverticulosis without CT evidence of acute diverticulitis. No bowel obstruction is identified. There is moderate colonic fecal retention. The appendix is well-visualiz ed and normal. Peritoneum: There is no intraperitoneal free air or abdominal ascites. There is a fat-containing umbi lical hernia. Lymphadenopathy: None. Pelvic viscera: The prostate gland is enlarged and heterogeneous. The bladder is significantly disten ded and contains an air-fluid level. A bladder catheter is in place. The bladder wall is thickened/tr abeculated indicating chronic outlet obstruction. There is mild pericystic infiltration. Skeletal structures: The skeletal structures are osteopenic. Mild lumbosacral spondylosis is observed . No lytic or blastic lesions are seen. Soft tissues: The patient is cachectic. IMPRESSION: 1. The bladder is markedly distended, with a bladder catheter in place. Correlate clinically for walter dence of catheter dysfunction. 2. An air-fluid level within the bladder lumen may be related to instrumentation. Correlate with urin alysis. 3. There is [id number] right and mild left hydroureteronephrosis. No obstructing stone or lesio n is seen. This may be related to the degree of bladder distention. 4. Small bilateral nonobstructing renal calculi. 5. There is evidence of chronic pancreatitis, with large intraductal stones in the pancreatic head. T he distal pancreatic duct is significantly dilated and this may be related to the stones/chronic panc reatitis. Underlying mass lesion is considered unlikely but would be impossible to entirely exclude. ERCP would be required for further evaluation. 6. Emphysema. 7. Tree-in-bud opacities in the lingula are likely inflammatory. Correlate clinically. 8. Moderate constipation. 9. Additional findings as above. ACT 112: Negative or not required by law. Electronically signed by: Norris Pulido M.D. 04/11/2023 12:50 PM
--- NOTE | 2023-04-11 13:54 | Discharge Summary ---
Date of Service April 11, 2023 Admission HPI Per Admitting Provider 73yo Male with PMH DM2 aspiration PNA esophageal candidiasis, low BP on midodrine, GERD transferred from [facility] for weakness and R sided nephrolithiasis. Per patient for the past week he has had poor appetite and weakness in his lower extremities, had difficulty walking, denies falls. Patient denies any recent sickness, fever chills nausea vomiting SOB diarrhea pain coughing sneezing, denies recent injury. States he feels hungry now. Normally has BM once every few days. Patient lives with his son Russ, who helps with his medications. Per notes from [facility] patient had recent hospitalization for a UTI. He was br ought to [facility] ED for low urine output and altered mental status, CT A/P found concern obstructing calculus on right UVJ, moderate stool burden, chronic pancreatitis. On labs he demonstrated WBC 17.4, creat 1.55. Copy of his CT imaging was sent along with his files. Patient received 1L IVF and 1 amp D50 in [facility] ED, was scheduled to receive ceftriaxone however was never administered. Patient's POA are his sons Russ and Miguel. Principal Diagnosis right nephrolithiasis Discharge Exam Constitutional no acute distress Eyes PERRL, conjunctivae normal, anicteric sclerae Neck trachea midline, no thyromegaly trachea midline; neck extension not limited Respiratory normal respiratory effort, lungs clear to auscultation Cardiovascular Rate/Rhythm: regular rate and regular rhythm Gastrointestinal (Abdomen) Inspection/Auscultation: abdomen normal to inspection Percussion/Palpation: abdomen soft; abdomen nontender Skin no rashes Neurologic moves all extremities Psychiatric Orientation: alert and cooperative Discharge Data Allergies Allergy/AdvReac Type Severity Reaction Status Date / Time No Known Allergies Allergy Unverified 04/05/23 21:27 Consultations 04/05/23 20:32 Consult Urology Routine Procedures Performed Operation Date: 04/05/23 10:20 Actual Procedures p Cystoscopy, Urethral Dilation, Retrograde Pylogram, Trinh Placement - Miguel Corral MD Ordered Studies 04/05/23 22:23 FL retrograde includes kub Routine 04/06/23 05:04 CT head/brain wo con Stat 04/09/23 11:11 CT head/brain wo con Urgent 04/11/23 10:20 CT abd pelvis wo con Routine Hospital Course (1) Right nephrolithiasis: 73yo Male with PMH DM2 aspiration PNA esophageal candidiasis, low BP on midodrine, GERD transferred from [facility] for weakness and R right-sided hydronephrosis no kidney stone was found. R sided nephrolithiasis this was not confirmed on cystoscopy and retrograde pyelogram 04/05/2023 was taken for cystoscopy with urethral dilatation and and Trinh catheter placement -per CT records from [facility], -consult placed to urology urology felt issues were more from phimosis and meatal obstruction intraoperative retrograde pyelogram did not show any kidney stone or obstructive stone -per [facility] records WBC 17.4 started on ceftriaxone 1g daily urine cultures here are only with 6000 colonies of Tere albicans. I personally phoned [facility] and they do not have a specimen on file subsequently no additional treatment is rendered Patient to be discharged with Trinh catheter and have an in office voiding trial 2 weeks after discharge Patient required a large urinary catheter on 04/11, as the previous one was blocked. This fixed the obstruction. CARLO resolved -Acute kidney injury has resolved patient now with chronic kidney disease stage III, with electrolyte deficiency will need supplementation Persistent hypokalemia continue repletion also replete magnesium Weakness reportedly from family was able to walk with a cane on level surfaces here physical therapy feels he will benefit from rehabilitation. He continues to have ambulation challenges even with a walker Patient with persistent hypokalemia hypomagnesemia required repletion prior to disposition Hypotension -on midodrine 2.5mg BID GERD -continue protonix DM2 -ordered carb consistent diet -ordered SSI Esophageal candidiasis -patient is on fluconazole 100mg daily at home, uncertain how long he has been on medication, this was not restarted Underweight with BMI 18.7 (2) DM2 (diabetes mellitus, type 2): (3) GERD (gastroesophageal reflux disease): Plan Given poor performance in physical therapy patient need to be evaluated for short-term subacute rehab Total Time Total Time Spent Total Time Spent (In Minutes): 32 Discharge Plan Discharge Items Patient Disposition: Transfer Half-Way Fac Reason For Visit: R NEPHROLITHIASIS Discharge Diagnosis: Right kidney stone Activity: Resume your previous activity Non-emergency contact: Primary Care Provider Call non-emergency contact if: you have any medication questions Follow-up/Referrals: Jennifer Soni [Primary Care Provider] - Miguel Corral MD [Physician] - 04/15/23 8:40 am [facility],Nurse [FAKE FOR SCHEDULES] - 04/15/23 8:00 am Diet: Carb Consistent or DM2 Diet Texture: Dental soft (bite-sized) Diet Comment: minced and moist Addtl Attending Provider Instructions: recommend followup with Urology in 2 weeks Recommend followup with PCP in 2 weeks. Addtl Tactical Intelligence Officer Provider Instructions: Please call the urology office at [phone] with any questions, concerns or need to reschedule appointments for any reason. We are happy to assist you. Trinh Catheter care: Keep the catheter well secured with either a leg back or leg strap with large bag. Empty your bag when it's about half full. Use mild soap (such as Dove or Dial) and water to wash the catheter and the head of your penis daily, or more frequently if needed. You may shower as normal. Please avoid tub baths or soaking until catheter removed. Call [facility] Urology at [phone] if you have any of the following: Heavy bleeding, clots, or bright red blood from the catheter Catheter that falls out or stops draining Foul-smelling discharge from your catheter Pending Studies at Discharge: No Stand-Alone Forms: My [facility] Skilled Items Patient informed of condition?: Yes DNR: No Discharge Level of Care: Skilled Communicable Disease: No Discharge Prognosis: Stable Lines: None Urinary Catheter: Yes Medications and DC Order Prescriptions: New aspirin 81 mg Tablet,Delayed Release (Dr/Ec) 81 mg PO QAM Qty: 30 0RF Continued magnesium oxide 400 mg (241.3 mg magnesium) tablet 400 mg PO DAILY pantoprazole 40 mg tablet,delayed release (DR/EC) 40 mg PO DAILY insulin aspart U-100 [Novolog FlexPen U-100 Insulin] 100 unit/mL (3 mL) insulin pen SUBCUT Changed insulin glargine [Lantus Solostar U-100 Insulin] 100 unit/mL (3 mL) insulin pen 5 unit SUBCUT BID Qty: 15 0RF midodrine 2.5 mg tablet 2.5 mg PO BIDM Qty: 30 0RF Discharge Orders: Discharge Order (Routine); Ordered 04/11/23 Ordered By: Jake Alfonso Admission Data Admit Date/Time: 04/05/23 19:54 Attending Provider: Jake Alfonso Admit Provider: Vicky Arellano Primary Care Provider: Jennifer Soni Other Providers: Miguel Corral ; Yariel Brumfield Coding Level of Care Code 37535 INP/OBS DISCH >30 MIN Diagnoses Right nephrolithiasis N20.0 DM2 (diabetes mellitus, type 2) E11.9 GERD (gastroesophageal reflux disease) K21.9
== END 2023-04-11 14:51 | DRG 727 ==
LOC: SUATTDRO 19:54 → 2W 19:54

== ENCOUNTER 2023-11-09 00:19 | Inpatient (IN) ==
[2023-11-09 01:16] LABS: Albumin Globulin Ratio 1.1 (0.9-2); Albumin Level 3.4 gm/dl (3.4-5.0); Bilirubin,Total 1.2 mg/dl (0.2-1.0); Calcium 8.4 mg/dl (8.6-10.3); Creatinine Clr Calc Pharmacy 41.8 ml/min; Est GFR (Non-African American) 49.1 ml/min; Globulin 3.1 gm/dl (2.5-4.0); Hematocrit (blood only) 43.7 % (42.0-52.0); Hemoglobin 14.7 g/dl (14.0-18.0); Mean Corpuscular Hemoglobin 31.7 pg (25.0-34.0); Mean Corpuscular Hgb Conc 33.6 g/dL (32.0-36.0); Mean Corpuscular Volume 94.4 fL (80.0-100.0); Mean Platelet Volume 9.3 fL (9.4-12.4); Platelet Count 254 K/uL (130-400); Potassium 4.3 mmol/L (3.5-5.1); RDW Coefficient of Variation 13.1 % (11.5-14.5); Red Blood Count 4.63 M/uL (4.70-6.10); Total Protein 6.5 gm/dl (6.0-8.3); White Blood Count 25.92 K/ul (4.8-10.8)
[2023-11-09] MEDS ORDERED: SODIUM CHLORIDE 0.9% 500 ML IV ONE (01:24)
[2023-11-09 01:30] LABS: Appearance Urine Clear (Clear); Bilirubin Urine Negative (Negative); Blood Urine Trace-intact (Negative); Color Urine Yellow; Glucose Urine UA Negative (Negative); Ketones Urine Negative (Negative); Leukocyte Esterase Urine 2+ (Negative); Nitrite Urine Negative (Negative); Protein Urine 1+ (Negative); Specific Gravity Urine 1.015 (1.000-1.030); Urobilinogen Urine Negative (Negative); pH Urine >= 9.0 (4.5-7.5)
[2023-11-09 01:33] LABS: Basophils # (auto) 0.09 K/uL (0.00-0.20); Basophils % (auto) 0.3 %; Eosinophils # (auto) 0.04 K/uL (0.00-0.50); Eosinophils % (auto) 0.2 %; Immature Granulocytes # (auto) 0.63 K/uL (0.01-0.20); Immature Granulocytes % (auto) 2.4 %; Lymphocytes # (auto) 1.33 K/uL (1.20-3.40); Lymphocytes % (auto) 5.1 %; Monocytes # (auto) 1.26 K/uL (0.11-0.59); Monocytes % (auto) 4.9 %; Neutrophils # (auto) 22.57 K/uL (1.40-6.50); Neutrophils % (auto) 87.1 %; RBC Morphology Unremarkable
[2023-11-09 01:41] LABS: Bacteria Urine 4+ (Negative); Epithelial Cell Urine 0-5 /lpf (0-5)
[2023-11-09 01:43] LABS: Magnesium 1.2 mg/dl (1.7-2.4)
[2023-11-09 01:46] LABS: INR 1.3 (0.9-1.1); Partial Thromboplastin Ratio 1.1; Partial Thromboplastin Time 30 Seconds (21-31); Prothrombin Time 13.8 Seconds (9.0-12.0)
[2023-11-09] MEDS ORDERED: SODIUM CHLORIDE 0.9% 1,000 ML IV ONE (01:56)
[2023-11-09] MEDS ORDERED: CEFEPIME 2,000 MG/20 ML VIAL IV STA (01:58)
[2023-11-09] MEDS: MAGNESIUM SULFATE / D5W 1 GM/100 ML BAG IV SCH ×2 (02:11→03:19)
--- NOTE | 2023-11-09 03:25 | History & Physical Report ---
Date of Service November 09, 2023 Assessment & Plan (1) Sepsis due to urinary tract infection: (2) Metabolic encephalopathy: (3) Urinary retention: (4) Other urethral stricture, male, meatal: (5) DM2 (diabetes mellitus, type 2): (6) GERD (gastroesophageal reflux disease): (7) Acute kidney injury superimposed on CKD: (8) Hypomagnesemia: Plan Sepsis due to UTI/metabolic encephalopathy- Patient received normal saline 1 L bolus, followed by 500 mill bolus Follow urine culture and sensitivity Continue cefepime 2 g IV every 12 hours, begun in the ED Zofran 4 mg IV every 6 hours NSS at 80 mL/h x 1 L WBC 25.92, and lactate 6.9. Follow both serially Holding metformin Acute kidney injury superimposed on CKD- Creatinine 1.40, with baseline 1.04 Received total 1500 mL normal saline in the ED Continue rehydration with normal saline at 80 mL/h x 1 L Repeat laboratories in a.m. Hypomagnesemia- Magnesium 1.2 on admission Patient did receive 2 g of magnesium sulfate IV from the ED Hold on any further supplementation due to creatinine 1.4, recheck laboratories in a.m. Diabetes mellitus- Hold metformin Continue insulin glargine units subcu every morning Patient Accu-Cheks with NovoLog SSI History of Present Illness Chief Complaint: The patient presents to the emergency department due to confusion, generalized fatigue and weakness, with decreased oral intake over the past few days. The HPI and review of systems are somewhat limited due to patient's current state Primary Care Provider: Jennifer Soni The patient is a 73-year-old male with a past medical history including diabetes mellitus, GERD, esophageal candidiasis, urinary retention, phimosis, metabolic encephalopathy, right hydronephrosis and meatal urethral stricture. He was most recently admitted to [facility] from 04/05-04/11/2023, at which time he was treated for urine tract infection, and seen by urology due to issues with phimosis and meatal urethral stricture. He did have a Angeles catheter placed at that time by urology, which has since been discontinued. He was most recently seen by urology on 09/12/2023 for follow-up, having had a circumcision on 06/20/2023. Postoperatively had a Angeles catheter placed, and then passed a voiding trial in clinic on 06/26/2023. The patient reports that he feels that he continues to urinate normally since that time. He does have confusion, generalized fatigue and weakness, and decreased oral intake over the past few days. Significant laboratories: WBC 25.92, creatinine 1.40, glucose 214, lactic acid 6.9, magnesium 1.2, total bilirubin 1.2. Urinalysis suggests infection From the ED the patient received the following: Normal saline 1 L, magnesium sulfate 2 g IV, normal saline 500 mL and cefepime 2 g IV Allergies Allergy/AdvReac Type Severity Reaction Status Date / Time No Known Allergies Allergy Verified 11/09/23 01:33 Home Medications Medication Instructions Recorded Confirmed Type insulin aspart U-100 100 unit/mL 0 sliding scale dose subcut TID 04/05/2311/09 History (3 mL) subcutaneous pen (Novolog FlexPen U-100 Insulin aspart) magnesium oxide 400 mg (241.3 mg 400 mg PO BID 04/05/23 11/09/23 History magnesium) tablet pantoprazole 40 mg tablet,delayed 40 mg PO QAM 04/05/23 11/09/23 History release cholecalciferol (vitamin D3) 125 125 mcg PO QAM 06/18/23 11/09/23 History mcg (5,000 unit) tablet (Vitamin D3) gabapentin 300 mg capsule 300 mg PO TID 06/18/23 11/09/23 History insulin glargine 100 unit/mL (3 6 unit subcut QAM 06/18/23 11/09/23 History mL) subcutaneous pen (Lantus Solostar U-100 Insulin) metformin 1,000 mg tablet 1,000 mg PO BID 06/18/23 11/09/23 History midodrine 2.5 mg tablet 2.5 mg PO TID 06/18/23 11/09/23 History potassium chloride 20 mEq 20 meq PO QAM 11/09/23 11/09/23 History tablet,extended release(part/cryst) Past Med/Surg History Medical History (Updated 11/09/23 @ 05:00 by Ryan Earl MD) 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 GERD (gastroesophageal reflux disease) Diabetes mellitus, type 2 Cataract upcoming surgery for correction Low blood pressure On Midodrine Chronic obstructive pulmonary disease Surgical History History of esophagogastroduodenoscopy (EGD) History of colonoscopy History of tooth extraction Family History Other No family history of adverse response to anesthesia Social History Smoking Status: Current every day smoker Tobacco Type: Cigarettes Cigarettes Per Day: 10 cig daily>advised; Second Hand Exposure: No; Do You Dip or Chew Tobacco: No; Hx Alcohol Use: No Hx Substance Use: No Preferred Language: Maori Communication Ability: Effective Sparmaker Required: No Beliefs That Will Affect Care: None Current Living Situation: Family Current Living Situation Comment: with son Feels Safe at Home: Yes Assistive Devices: Cane and Glasses Review of Systems Review of Systems: The patient denies chest pain, palpitations, shortness of breath, dyspnea on exertion, cough, lower extremity swelling, sore throat, fevers, chills, sweats, weight change, fatigue, nausea, vomiting, diarrhea , constipation, abdominal pain, pelvic pain, blood in urine or stool, dysuria, urinary frequency or urgency, lightheadedness, dizziness, headache, loss of consciousness, rash, abnormal bruising or bleeding, imbalance, focal or generalized weakness, numbness or tingling in arms or legs, generalized arthralgias or myalgias, back or neck pain, or night sweats. The review of systems is otherwise negative other than for that already noted above, and at least 10 systems have been reviewed. Physical Exam Physical Exam: The patient is awake, and responsive, well developed and well nourished, normocephalic and atraumatic, lying in bed and in no acute distress. HEENT--PERRL, EOMI, mucous membranes and oropharynx mildly dry. Neck--supple. No JVD. No bruits. Thyroid normal, trachea midline, no adenopathy. Heart--normal S1 and S2. No murmurs, rubs or gallops. Lungs--clear bilaterally, no respiratory distress, no accessory muscle use. Abdomen--normal bowel sounds and soft. Nontender. Nondistended, no hernias or masses, no organomegaly. Extremities--no cyanosis or clubbing. No edema. Dermatologic--normal skin turgor, normal color, no abnormal lymph nodes, no rash. Neurologic--cranial nerves II through XII grossly intact. Rheumatologic--normal range of motion. Psychiatric--normal affect. Results & Data Results & Data Vital Signs (Past 12 Hours) Vital Signs Temp Pulse Pulse Resp BP BP Pulse Ox 11/09/23 02:50 37.7 C H 102 H 22 116/76 96 11/09/23 02:01 95 H 20 114/69 94 11/09/23 01:34 111 H 11/09/23 01:32 101 H 16 96/63 L 94 11/09/23 00:56 36.9 C 116 H 24 111/73 95 O2 Del Method 11/09/23 02:50 Room Air 11/09/23 02:01 Room Air 11/09/23 01:34 11/09/23 01:32 Room Air 11/09/23 00:56 Room Air Laboratory Results Laboratory Results WBC 25.92 K/ul (4.8-10.8) H 11/09/23 00:39 RBC 4.63 M/uL (4.70-6.10) L 11/09/23 00:39 Hgb 14.7 g/dl (14.0-18.0) 11/09/23 00:39 Hct 43.7 % (42.0-52.0) 11/09/23 00:39 MCV 94.4 fL (80.0-100.0) 11/09/23 00:39 MCH 31.7 pg (25.0-34.0) 11/09/23 00:39 MCHC 33.6 g/dL (32.0-36.0) 11/09/23 00:39 RDW Std Deviation 45.0 fL (36.4-46.3) 11/09/23 00:39 RDW Coeff of Cassia 13.1 % (11.5-14.5) 11/09/23 00:39 Plt Count 254 K/uL (130-400) 11/09/23 00:39 MPV 9.3 fL (9.4-12.4) L 11/09/23 00:39 Immature Gran % (Auto) 2.4 % 11/09/23 00:39 Neut % (Auto) 87.1 % 11/09/23 00:39 Lymph % (Auto) 5.1 % 11/09/23 00:39 [place] % (Auto) 4.9 % 11/09/23 00:39 Eos % (Auto) 0.2 % 11/09/23 00:39 Baso % (Auto) 0.3 % 11/09/23 00:39 Neut # (Auto) 22.57 K/uL (1.40-6.50) H 11/09/23 00:39 Lymph # (Auto) 1.33 K/uL (1.20-3.40) 11/09/23 00:39 [place] # (Auto) 1.26 K/uL (0.11-0.59) H 11/09/23 00:39 Eos # (Auto) 0.04 K/uL (0.00-0.50) 11/09/23 00:39 Baso # (Auto) 0.09 K/uL (0.00-0.20) 11/09/23 00:39 Immature Gran # (Auto) 0.63 K/uL (0.01-0.20) H 11/09/23 00:39 RBC Morphology Unremarkable 11/09/23 00:39 PT 13.8 Seconds (9.0-12.0) H 11/09/23 00:39 INR 1.3 (0.9-1.1) H 11/09/23 00:39 APTT 30 Seconds (21-31) 11/09/23 00:39 PTT Ratio 1.1 11/09/23 00:39 Sodium 139 mmol/L (136-145) 11/09/23 00:39 Potassium 4.3 mmol/L (3.5-5.1) 11/09/23 00:39 Chloride 102 mmol/L (98-107) 11/09/23 00:39 Carbon Dioxide 24 mmol/L (21-32) 11/09/23 00:39 Anion Gap 13 (3-11) H 11/09/23 00:39 BUN 14 mg/dl (6-23) 11/09/23 00:39 Creatinine 1.40 mg/dl (0.6-1.4) 11/09/23 00:39 Est Cr Clr Drug Dosing 41.8 ml/min 11/09/23 00:39 Est GFR ( Amer) 57.0 ml/min 11/09/23 00:39 Est GFR (Non-Af Amer) 49.1 ml/min 11/09/23 00:39 BUN/Creatinine Ratio 10.0 (10-20) 11/09/23 00:39 Glucose 214 mg/dl (70-99(Fasting)) H 11/09/23 00:39 Lactate 5.6 mmol/L (0.4-2.0) H* 11/09/23 03:47 Calcium 8.4 mg/dl (8.6-10.3) L 11/09/23 00:39 Magnesium 1.2 mg/dl (1.7-2.4) L 11/09/23 00:39 Total Bilirubin 1.2 mg/dl (0.2-1.0) H 11/09/23 00:39 AST 36 U/L (13-39) 11/09/23 00:39 ALT 14 U/L (7-52) 11/09/23 00:39 Alkaline Phosphatase 227 U/L (34-104) H 11/09/23 00:39 Total Protein 6.5 gm/dl (6.0-8.3) 11/09/23 00:39 Albumin 3.4 gm/dl (3.4-5.0) 11/09/23 00:39 Globulin 3.1 gm/dl (2.5-4.0) 11/09/23 00:39 Albumin/Globulin Ratio 1.1 (0.9-2) 11/09/23 00:39 Procalcitonin 1.64 ng/ml (0-0.5) H 11/09/23 00:39 Urine Color Yellow 11/09/23 00:53 Urine Appearance Clear (Clear) 11/09/23 00:53 Urine pH >= 9.0 (4.5-7.5) H 11/09/23 00:53 Ur Specific Avery 1.015 (1.000-1.030) 11/09/23 00:53 Urine Protein 1+ (Negative) H 11/09/23 00:53 Urine Glucose (UA) Negative (Negative) 11/09/23 00:53 Urine Ketones Negative (Negative) 11/09/23 00:53 Urine Blood Trace-intact (Negative) H 11/09/23 00:53 Urine Nitrite Negative (Negative) 11/09/23 00:53 Urine Bilirubin Negative (Negative) 11/09/23 00:53 Urine Urobilinogen Negative (Negative) 11/09/23 00:53 Ur Leukocyte Esterase 2+ (Negative) H 11/09/23 00:53 Urine RBC 5-10 /hpf (0-4) H 11/09/23 00:53 Urine WBC 10-30 /hpf (0-5) H 11/09/23 00:53 Ur Epithelial Cells 0-5 /lpf (0-5) 11/09/23 00:53 Urine Bacteria 4+ (Negative) H 11/09/23 00:53 Code Status & VTE Plan Code Status Full code VTE Prophylaxis Plan VTE Prophylaxis will be ordered: Yes PG Care Time/CCT Total # of Minutes Spent Total Time Spent with Patient: Total time spent is greater than 50% in coordination of care (as documented) at patient's floor/unit and/or counseling patient: Coding Level of Care Code 48841 INT INP/OBS CARE 3/75MIN Diagnoses Sepsis due to urinary tract infection A41.9; N39.0 Metabolic encephalopathy G93.41 Urinary retention R33.9 Other urethral stricture, male, meatal N35.811 DM2 (diabetes mellitus, type 2) E11.9 GERD (gastroesophageal reflux disease) K21.9 Acute kidney injury superimposed on CKD N17.9; N18.9 Hypomagnesemia E83.42
[2023-11-09] MEDS ORDERED: ONDANSETRON INJ 2 MG/ML 2 ML VIAL IV PRN (05:23)
[2023-11-09] MEDS ORDERED: SODIUM CHLORIDE 0.9% 1,000 ML IV SCH (05:23)
[2023-11-09] MEDS ORDERED: ACETAMINOPHEN 325 MG TAB PO PRN (05:23)
[2023-11-09] MEDS ORDERED: GLUCOSE 10 TAB/TUBE PO PRN (05:45)
[2023-11-09] MEDS ORDERED: GLUCAGON FOR INJ 1 MG VIAL IM PRN (05:45)
[2023-11-09] MEDS ORDERED: DEXTROSE 50% 50 ML SYRINGE IV PRN (05:45)
[2023-11-09] MEDS ORDERED: CARBOHYDRATES FOR HYPOGLYCEMIA PO PRN (05:45)
[2023-11-09] MEDS ORDERED: GLUCOSE 40% GEL 15 GM TUBE PO PRN (05:45)
--- NOTE | 2023-11-09 06:07 | Emergency Department Note ---
Impression & Plan Septic shock, Hypomagnesemia, Acute UTI Admit to the [facility] ED Provider Note NAME: JENSEN CHAPMAN AGE: 73 SEX: Male INFORMANT: Patient and EMS ED PROVIDER(S): Melania Vang DO CHIEF COMPLAINT: Weakness and altered mental status PLAN: Disposition: Admit to the [facility] MEDICAL DECISION MAKING: This is a 73-year-old male patient who presents to the emergency department with an altered mental status and extreme weakness. Patient describes having burning with urination since yesterday. Family called EMS because he seems somewhat confused today. EMS found the patient to be hypotensive and tachycardic. He was given IV normal saline and transported here for evaluation. A septic protocol was performed. Laboratory studies here revealed significant leukocytosis with a white blood cell count of 25,000. H&H were stable. Magnesium was low at 1.2. Lactate was 5.6. Procalcitonin was 1.64. Patient was treated for septic shock here in the emergency department. He was immediately bolused with IV normal saline solution. His blood pressure rebounded nicely. Chest x-ray was unremarkable. He was treated with IV cefepime for the urine. I discussed the case with the [facility] Hospitalist and they will evaluate for further inpatient care. Patient did receive a total of 30 mL/kg of IV crystalloid upon presentation to the emergency department. Care/management discussed with: manager freelance and [facility] Triage Nursing notes: Reviewed and agree with them. Vital Signs: reviewed and remarkable for hypotension, tachycardia, and fever Additional History obtained from: EMS Chronic Medical/Social Conditions affecting care: COPD Differential Diagnosis: UTI, sepsis, pneumonia, viral URI Diagnostics, independently interpreted by me: ECG: Sinus tachycardia at 108 with a poor baseline. There was no ST segment elevation or signs of ischemia Cardiac Monitoring: Sinus tachycardia at 109 Imaging studies: Portable chest x-ray-no acute pulmonary infiltrates or consolidation as per my independent interpretation HPI: 73 year old Male arrives for evaluation of dysuria, weakness and altered mental status. Patient began to complain of dysuria yesterday. He became increasingly weak over the past 24 hours. Family noted that he was becoming confused. EMS was called and he was found to be hypotensive with a blood pressure of 60/30. PAST MEDICAL HISTORY: See Below, PAST SURGICAL HISTORY: See Below, SOCIAL HISTORY: See Below, HOME MEDICATIONS: See list ALLERGIES: None VITALS: See Below PHYSICAL EXAMINATION: HEENT: Head - normocephalic and atraumatic. Pupils are equal, round, and reactive to light. Extraocular eye muscles are intact, and sclera are anicteric. Nose - moist nasal mucosa without discharge. Mouth -extremely dry buccal mucosa. Oropharynx is nonerythematous and there is no tonsillar exudate or edema noted. Neck: Supple; no JVD or cervical lymphadenopathy Heart: Tachycardic rate and regular rhythm there is a normal S1 and S2 with no murmurs, clicks, or gallops appreciated. Lungs: Clear to auscultation bilaterally with no wheezes, rales, or rhonchi. Abdomen: Soft, completely nontender, mild distended, with good bowel sounds. There are no palpable pulsatile masses or hepatosplenomegaly. There is no guarding, rigidity, or rebound noted. Extremities: No evidence of cyanosis, clubbing, or edema. There are easily palpable peripheral pulses. Skin: Extremely dry with poor turgor and no rashes. Emergency department treatment: electronic device monitor, IV normal saline bolus, IV cefepime, IV magnesium Emergency department course: The patient was evaluated in room B-7. A septic protocol was performed. Patient was bolused with 500 cc of saline solution as he had already received 300 cc of saline in the field. Twelve-lead EKG was obtained. An order was placed for continuous cardiac monitoring. Patient had significant leukocytosis and elevated procalcitonin. It was evident that he was septic and received another 1000 mL of IV normal saline solution to meet his 30 mL/kg IV crystalloid bolus. Urine specimen was obtained. Chest x-ray was performed. Patient was given a dose of IV cefepime. The patient was in a sinus tachycardia at a rate of 109. Patient was noted to be hypomagnesemic and was started on a magnesium IV replacement. I discussed the case with the [facility] Hospitalist and they will evaluate for further inpatient care. I have personally spent greater than 40minutes of critical care time in the direct management of this patient. This includes bedside care, interpretation of diagnostic studies, and testing, discussion with consultants, patient, and family members, and other required patient management activities. This 40 minutes is in excess of all separately billable procedures. Past Med/Surg History Medical History (Updated 11/09/23 @ 06:07 by Melania Vang DO) 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 GERD (gastroesophageal reflux disease) Diabetes mellitus, type 2 Cataract upcoming surgery for correction Low blood pressure On Midodrine Chronic obstructive pulmonary disease Surgical History History of esophagogastroduodenoscopy (EGD) History of colonoscopy History of tooth extraction Family History Other No family history of adverse response to anesthesia Social History Smoking Status: Current every day smoker Tobacco Type: Cigarettes Cigarettes Per Day: 1 pack a day; Second Hand Exposure: No; Do You Dip or Chew Tobacco: No; Hx Alcohol Use: No Hx Substance Use: No Preferred Language: Syrian Communication Ability: Effective Auditing Coder Required: No Beliefs That Will Affect Care: None Current Living Situation: Family Current Living Situation Comment: Son Other Information That Helps Us Care for You: No Feels Safe at Home: Yes Safety Concerns: Feels Safe At This Time Assistive Devices: Cane, Denture - Upper, Denture - Lower and Walker Allergies Allergies Allergy/AdvReac Type Severity Reaction Status Date / Time No Known Allergies Allergy Verified 11/09/23 01:33 Home Meds Home Medications Medication Instructions Recorded Confirmed insulin aspart U-100 100 unit/mL 0 sliding scale dose subcut TID 04/05/23 11/09/23 (3 mL) subcutaneous pen (Novolog FlexPen U-100 Insulin aspart) magnesium oxide 400 mg (241.3 mg 400 mg PO BID 04/05/23 11/09/23 magnesium) tablet pantoprazole 40 mg tablet,delayed 40 mg PO QAM 04/05/23 11/09/23 release cholecalciferol (vitamin D3) 125 125 mcg PO QAM 06/18/23 11/09/23 mcg (5,000 unit) tablet (Vitamin D3) gabapentin 300 mg capsule 300 mg PO TID 06/18/23 11/09/23 insulin glargine 100 unit/mL (3 6 unit subcut QAM 06/18/23 11/09/23 mL) subcutaneous pen (Lantus Solostar U-100 Insulin) metformin 1,000 mg tablet 1,000 mg PO BID 06/18/23 11/09/23 midodrine 2.5 mg tablet 2.5 mg PO TID 06/18/23 11/09/23 potassium chloride 20 mEq 20 meq PO QAM 11/09/23 11/09/23 tablet,extended release(part/cryst) Results & Data (ED) Vital Signs Vital Signs - 24 hr 11/09/23 01:32 11/09/23 01:33 11/09/23 01:33 Temperature Temperature Source Pulse Rate Pulse Rate [Apical] 101 H Pulse Rate from SpO2 Sensor 101 H Pulse Rhythm [Apical] Respiratory Rate 16 20 Respiratory Effort / Characteristics Non-Labored Spontaneous Respiratory Depth Normal Respiratory Pattern Regular Blood Pressure 96/63 L Blood Pressure [Left Arm] 96/63 L Blood Pressure Mean 70 Blood Pressure Mean [Left Arm] 74 Blood Pressure Position [Left Arm] Semi-fowlers Pulse Oximetry 94 94 Oxygen Delivery Method Room Air 11/09/23 01:34 11/09/23 02:00 11/09/23 02:00 Temperature Temperature Source Pulse Rate 111 H Pulse Rate [Apical] Pulse Rate from SpO2 Sensor 94 H Pulse Rhythm [Apical] Respiratory Rate 19 Respiratory Effort / Characteristics Respiratory Depth Respiratory Pattern Blood Pressure 114/69 Blood Pressure [Left Arm] Blood Pressure Mean 75 Blood Pressure Mean [Left Arm] Blood Pressure Position [Left Arm] Pulse Oximetry 94 Oxygen Delivery Method 11/09/23 02:01 11/09/23 02:50 11/09/23 02:50 Temperature 37.7 C H Temperature Source Oral Pulse Rate Pulse Rate [Apical] 95 H 102 H Pulse Rate from SpO2 Sensor Pulse Rhythm [Apical] Regular Regular Respiratory Rate 20 22 Respiratory Effort / Characteristics Non-Labored Spontaneous Non-Labored Spontaneous Respiratory Depth Normal Normal Respiratory Pattern Regular Regular Blood Pressure 116/76 Blood Pressure [Left Arm] 114/69 116/76 Blood Pressure Mean 91 Blood Pressure Mean [Left Arm] 84 89 Blood Pressure Position [Left Arm] Semi-fowlers Pulse Oximetry 94 96 Oxygen Delivery Method Room Air Room Air 11/09/23 02:50 11/09/23 03:00 Temperature Temperature Source Pulse Rate 101 H 103 H Pulse Rate [Apical] Pulse Rate from SpO2 Sensor 101 H 102 H Pulse Rhythm [Apical] Respiratory Rate 22 27 H Respiratory Effort / Characteristics Respiratory Depth Respiratory Pattern Blood Pressure Blood Pressure [Left Arm] Blood Pressure Mean Blood Pressure Mean [Left Arm] Blood Pressure Position [Left Arm] Pulse Oximetry 96 94 Oxygen Delivery Method Laboratory Data 11/09/23 15:20 11/09/23 15:20 Lab Results 11/09/23 11/09/23 11/09/23 Range/Units 00:39 00:53 01:55 WBC 25.92 H (4.8-10.8) K/ul RBC 4.63 L (4.70-6.10) M/uL Hgb 14.7 (14.0-18.0) g/dl Hct 43.7 (42.0-52.0) % MCV 94.4 (80.0-100.0) fL MCH 31.7 (25.0-34.0) pg MCHC 33.6 (32.0-36.0) g/dL RDW Std Deviation 45.0 (36.4-46.3) fL RDW Coeff of Cassia 13.1 (11.5-14.5) % Plt Count 254 (130-400) K/uL MPV 9.3 L (9.4-12.4) fL Immature Gran % (Auto) 2.4 % Neut % (Auto) 87.1 % Lymph % (Auto) 5.1 % [place] % (Auto) 4.9 % Eos % (Auto) 0.2 % Baso % (Auto) 0.3 % Neut # (Auto) 22.57 H (1.40-6.50) K/uL Lymph # (Auto) 1.33 (1.20-3.40) K/uL [place] # (Auto) 1.26 H (0.11-0.59) K/uL Eos # (Auto) 0.04 (0.00-0.50) K/uL Baso # (Auto) 0.09 (0.00-0.20) K/uL Immature Gran # (Auto) 0.63 H (0.01-0.20) K/uL RBC Morphology Unremarkable PT 13.8 H (9.0-12.0) Seconds INR 1.3 H (0.9-1.1) APTT 30 (21-31) Seconds PTT Ratio 1.1 Sodium 139 (136-145) mmol/L Potassium 4.3 (3.5-5.1) mmol/L Chloride 102 (98-107) mmol/L Carbon Dioxide 24 (21-32) mmol/L Anion Gap 13 H (3-11) BUN 14 (6-23) mg/dl Creatinine 1.40 (0.6-1.4) mg/dl Est Cr Clr Drug Dosing 41.8 ml/min Est GFR ( Amer) 57.0 ml/min Est GFR (Non-Af Amer) 49.1 ml/min BUN/Creatinine Ratio 10.0 (10-20) Glucose 214 H (70-99(Fasting)) mg/dl Lactate 6.9 H* (0.4-2.0) mmol/L Calcium 8.4 L (8.6-10.3) mg/dl Magnesium 1.2 L (1.7-2.4) mg/dl Total Bilirubin 1.2 H (0.2-1.0) mg/dl AST 36 (13-39) U/L ALT 14 (7-52) U/L Alkaline Phosphatase 227 H (34-104) U/L Total Protein 6.5 (6.0-8.3) gm/dl Albumin 3.4 (3.4-5.0) gm/dl Globulin 3.1 (2.5-4.0) gm/dl Albumin/Globulin Ratio 1.1 (0.9-2) Procalcitonin 1.64 H (0-0.5) ng/ml Urine Color Yellow Urine Appearance Clear (Clear) Urine pH >= 9.0 H (4.5-7.5) Ur Specific [place] 1.015 (1.000-1.030) Urine Protein 1+ H (Negative) Urine Glucose (UA) Negative (Negative) Urine Ketones Negative (Negative) Urine Blood Trace-intact H (Negative) Urine Nitrite Negative (Negative) Urine Bilirubin Negative (Negative) Urine Urobilinogen Negative (Negative) Ur Leukocyte Esterase 2+ H (Negative) Urine RBC 5-10 H (0-4) /hpf Urine WBC 10-30 H (0-5) /hpf Ur Epithelial Cells 0-5 (0-5) /lpf Urine Bacteria 4+ H (Negative) Administered Medications Gabapentin (Gabapentin 300 Mg Cap) 300 mg PO TID ISABELL Stop: 02/26/24 08:59 Last Admin: 11/09/23 20:26 Dose: 300 mg Documented By: Admin: 11/09/23 16:21 Dose: 300 mg Documented By: Admin: 11/09/23 09:24 Dose: 300 mg Documented By: UNRULY Cefepime HCl 2,000 mg/ Syringe 20 mls @ 5 mls/min IV Q12H [facility]; Protocol Stop: 11/19/23 13:59 Last Admin: 11/09/23 16:21 Dose: 5 mls/min Documented By: DILLON Insulin Glargine (Lantus Per Unit Charge) [facility] Stop: 12/09/23 08:59 Last Admin: 11/09/23 10:13 Dose: 6 units Documented By: UNRULY Co-signed By: ERIN Magnesium Oxide (Magnesium Oxide 400 Mg Tab) 400 mg PO BID [facility] Stop: 12/09/23 08:59 Last Admin: 11/09/23 20:26 Dose: 400 mg Documented By: Admin: 11/09/23 09:25 Dose: 400 mg Documented By: UNRULY Midodrine (Midodrine Hcl 2.5 Mg Tab) 2.5 mg PO TIDM [facility] Stop: 12/09/23 07:59 Last Admin: 11/09/23 18:00 Dose: 2.5 mg Documented By: Admin: 11/09/23 13:37 Dose: 2.5 mg Documented By: Admin: 11/09/23 09:25 Dose: 2.5 mg Documented By: UNRULY Pantoprazole Sodium (Pantoprazole 40 Mg Tab) 40 mg PO QAM [facility] Stop: 12/09/23 08:59 Last Admin: 11/09/23 09:28 Dose: 40 mg Documented By: UNRULY Potassium Chloride (Potassium Chloride Crtab 20 Meq Tabcr) 20 meq PO QAM [facility] Stop: 12/09/23 08:59 Last Admin: 11/09/23 09:27 Dose: 20 meq Documented By: UNRULY Vitamin D (Cholecalciferol 5,000 Units 125 Mcg Tab) 5,000 units PO QAM [facility] Stop: 12/09/23 08:59 Last Admin: 11/09/23 09:24 Dose: 5,000 units Documented By: UNRULY Discontinued Medications Sodium Chloride (Nss) 500 mls @ 999 mls/hr IV .Q31M ONE Stop: 11/09/23 01:54 Last Infusion: 11/09/23 02:02 Dose: Infused Documented By: Admin: 11/09/23 01:31 Dose: 999 mls/hr Documented By: VERONICA Sodium Chloride (Nss) 1,000 mls @ 999 mls/hr IV .Q1H1M ONE Stop: 11/09/23 02:56 Last Infusion: 11/09/23 03:12 Dose: Infused Documented By: Admin: 11/09/23 02:11 Dose: 999 mls/hr Documented By: VERONICA Cefepime HCl (Maxipime) 2,000 mg in 20 mls @ 5 mls/min IV NOW STA; Protocol Stop: 11/09/23 02:01 Last Admin: 11/09/23 02:11 Dose: 5 mls/min Documented By: VERONICA Magnesium Sulfate/Dextrose (Magnesium Sulfate / D5w) 1 gm in 100 mls @ 100 mls/hr IV Q1H ISABELL Stop: 11/09/23 04:05 Last Infusion: 11/09/23 04:19 Dose: Infused Documented By: Admin: 11/09/23 03:19 Dose: 100 mls/hr Documented By: Infusion: 11/09/23 03:11 Dose: Infused Documented By: Admin: 11/09/23 02:11 Dose: 100 mls/hr Documented By: VERONICA Sodium Chloride (Nss) 1,000 mls @ 80 mls/hr IV .[id number] ISABELL Stop: 11/09/23 17:52 Last Infusion: 11/09/23 23:51 Dose: Infused Documented By: Admin: 11/09/23 05:36 Dose: 80 mls/hr Documented By: VERONICA Discharge Plan Visit Data Chief Complaint: Altered Mental Status Stated Complaint: AMS, UTI, Hypotention ED Provider: Melania Vang Discharge Problem: Septic shock, Hypomagnesemia, Acute UTI Patient Disposition: Admitted As Inpatient Discharge Instructions Interventions: ED Discharge Assessment Last Done: 11/09/23 05:23
--- NOTE | 2023-11-09 09:00 | XRay Report ---
XR chest 1V portable CLINICAL HISTORY: cough TECHNIQUE: Single frontal radiograph of the chest was obtained. Comparison: Comparison is made to chest radiograph 04/07/2023 FINDINGS: No lines and tubes are seen. Calcified aortic knob is seen. The lungs are clear. No evidence of pleur al effusion or pneumothorax. IMPRESSION: No acute abnormalities and in particular no radiographic evidence of pneumonia. ACT 112: Negative or not required by law. Electronically signed by: Jamar Lopez M.D. 11/09/2023 8:58 AM
[2023-11-09] MEDS: GABAPENTIN 300 MG CAP PO SCH ×3 (09:24→20:26)
[2023-11-09] MEDS: CHOLECALCIFEROL 125 MCG (5,000 UNITS) TAB PO SCH (09:24)
[2023-11-09] MEDS: MIDODRINE HCL 2.5 MG TAB PO SCH ×3 (09:25→18:00)
[2023-11-09] MEDS: MAGNESIUM OXIDE 400 MG TAB PO SCH ×2 (09:25→20:26)
[2023-11-09] MEDS: POTASSIUM CHLORIDE CRTAB 20 MEQ TABCR PO SCH (09:27)
[2023-11-09] MEDS: PANTOprazole 40 MG TAB PO SCH (09:28)
[2023-11-09] MEDS: LANTUS PER UNIT CHARGE SQ SCH (10:13)
--- NOTE | 2023-11-09 10:23 | Electrocardiogram Report ---
Test Reason : Blood Pressure : / mmHG Vent. Rate : 108 BPM Atrial Rate : 108 BPM P-R Int : 126 ms QRS Dur : 068 ms QT Int : 344 ms P-R-T Axes : 075 -68 068 degrees QTc Int : 460 ms Poor data quality, interpretation may be adversely affected Sinus tachycardia Left axis deviation Low voltage QRS Nonspecific ST abnormality Abnormal ECG When compared with ECG of 07-JUN-2023 14:34, Fusion complexes are now Present Confirmed by Alexey Tanner ([id number]) on 11/09/2023 10:23:01 AM Referred By: REFERRED SELF Confirmed By:Alexey Tanner
--- NOTE | 2023-11-09 14:44 | Hospitalist Progress Note ---
Date of Service November 09, 2023 Assessment & Plan (1) Sepsis due to urinary tract infection: (2) Metabolic encephalopathy: (3) Urinary retention: (4) Other urethral stricture, male, meatal: (5) DM2 (diabetes mellitus, type 2): (6) GERD (gastroesophageal reflux disease): (7) Acute kidney injury superimposed on CKD: (8) Hypomagnesemia: Plan #Sepsis due to UTI/metabolic encephalopathy Follow urine culture and sensitivity Continue cefepime 2 g IV every 12 hours Zofran 4 mg IV every 6 hours NSS at 80 mL/h continuous WBC 25.92, and lactate 6.9, continue to trend Holding metformin #Acute kidney injury superimposed on CKD Creatinine 1.40, with baseline 1.04 Continue rehydration with normal saline at 80 mL/h #Hypomagnesemia Magnesium 1.2 on admission S/p 2 g of magnesium sulfate IV Hold on any further supplementation due to creatinine 1.4 #Diabetes mellitus Hold metformin Continue insulin glargine units subq every morning Patient Accu-Cheks with NovoLog SSI Admission and Anticipated Discharge Date Admission Date: November 09, 2023 Supervising Physician Co-Signing Physician Notes Communication Note Patient was admitted earlier this morning after presenting to the emergency department noting generalized fatigue, weakness, confusion, and decreased oral intake over the past few days. Workup found a significant leukocytosis (25.92), CARLO (1.4), elevated lactic acid (6.9) and a urinalysis suggestive of infection. He received a 1.5 L bolus of fluids and was given cefepime 2 g every 12 hours. He is now on normal saline at 80 MLS per hour. He did have breakfast earlier this morning; thereafter sleeping. He remains in the emergency department this point He remains hemodynamically stable; reviewed his outpatient blood pressures which are normally in the low 100s; he is on midodrine 2.5 mg 3 times daily as well. Continue antibiotics pending cultures Gentle IV fluids; monitor hemodynamics Repeat labs in a.m. 11/10 Subjective No acute events overnight. Patient seen and evaluated at bedside this morning. Patient seated eating breakfast. Does not appropriately respond to questions. Appears comfortable. Review of Systems Review of Systems: reviewed, per HPI Physical Exam Physical Exam: Constitutional: NAD, appears confused, does not appropriately respond to questioning HEENT: NCAT, no conjunctival injection CV: regular rhythm, no murmur appreciated, extremities well-perfused, no LE edema Resp: CTABL, no wheezes/rales/rhonchi appreciated, no increased work of breathing GI: soft, nondistended, nontender, BS normoactive MSK: no gross deformities appreciated Skin: warm, dry, no rash appreciated Neuro: alert, oriented, no focal neurologic deficit appreciated Results & Data Results & Data Vital Signs (Past 12 Hours) Vital Signs Temp Pulse Pulse Resp BP BP Pulse Ox 11/09/23 12:12 11/09/23 11:00 66 18 97 11/09/23 11:00 91 H 21 11/09/23 11:00 128/69 11/09/23 11:00 88/55 L 11/09/23 10:00 96 H 25 H 11/09/23 10:00 93/55 L 11/09/23 10:00 93/55 L 11/09/23 10:00 70 12 99 11/09/23 09:36 98 H 17 11/09/23 09:36 109/53 L 11/09/23 09:27 69 16 98 11/09/23 09:27 140/77 11/09/23 09:00 74 16 99 11/09/23 08:49 188/128 H 11/09/23 08:49 81 25 H 100 11/09/23 08:00 91 H 27 H 92 11/09/23 07:10 92 H 11/09/23 07:00 95 H 22 92 11/09/23 07:00 37.3 C 11/09/23 06:00 99 H 15 91 11/09/23 05:28 11/09/23 05:27 11/09/23 05:26 96 H 24 94 11/09/23 05:26 104/62 11/09/23 05:26 37.2 C 96 H 22 104/62 94 11/09/23 05:00 96 H 27 H 93 11/09/23 04:17 106 H 14 88 L 11/09/23 04:17 100/65 11/09/23 04:17 94 H 20 100/65 92 11/09/23 04:00 96 H 26 H 91 11/09/23 03:00 103 H 27 H 94 11/09/23 02:50 101 H 22 96 11/09/23 02:50 116/76 11/09/23 02:50 37.7 C H 102 H 22 116/76 96 Pulse Ox O2 Del Method O2 Del Method O2 Flow Rate 11/09/23 12:12 Nasal Cannula 2 11/09/23 11:00 11/09/23 11:00 11/09/23 11:00 11/09/23 11:00 11/09/23 10:00 11/09/23 10:00 11/09/23 10:00 11/09/23 10:00 11/09/23 09:36 11/09/23 09:36 11/09/23 09:27 11/09/23 09:27 11/09/23 09:00 11/09/23 08:49 11/09/23 08:49 11/09/23 08:00 11/09/23 07:10 11/09/23 07:00 11/09/23 07:00 11/09/23 06:00 11/09/23 05:28 Room Air 11/09/23 05:27 94 Room Air 11/09/23 05:26 11/09/23 05:26 11/09/23 05:26 Room Air 11/09/23 05:00 11/09/23 04:17 11/09/23 04:17 11/09/23 04:17 Room Air 11/09/23 04:00 11/09/23 03:00 11/09/23 02:50 11/09/23 02:50 11/09/23 02:50 Room Air
[2023-11-09] MEDS: CEFEPIME 2,000 MG in SYRINGE 0 ML IV SCH (16:21)
[2023-11-09 16:24] LABS: Basophils # (auto) 0.05 K/uL (0.00-0.20); Basophils % (auto) 0.3 %; Eosinophils # (auto) 0.01 K/uL (0.00-0.50); Eosinophils % (auto) 0.1 %; Hematocrit (blood only) 34.1 % (42.0-52.0); Hemoglobin 11.8 g/dl (14.0-18.0); Immature Granulocytes # (auto) 0.22 K/uL (0.01-0.20); Immature Granulocytes % (auto) 1.3 %; Lymphocytes # (auto) 1.84 K/uL (1.20-3.40); Lymphocytes % (auto) 11.2 %; Mean Corpuscular Hemoglobin 31.8 pg (25.0-34.0); Mean Corpuscular Hgb Conc 34.6 g/dL (32.0-36.0); Mean Corpuscular Volume 91.9 fL (80.0-100.0); Mean Platelet Volume 9.6 fL (9.4-12.4); Monocytes % (auto) 6.1 %; Neutrophils # (auto) 13.35 K/uL (1.40-6.50); Platelet Count 187 K/uL (130-400); RDW Coefficient of Variation 13.1 % (11.5-14.5); RDW Standard Deviation 44.4 fL (36.4-46.3); Red Blood Count 3.71 M/uL (4.70-6.10); White Blood Count 16.47 K/ul (4.8-10.8)
[2023-11-09 16:38] LABS: BUN Creatinine Ratio 11.4 (10-20); Calcium 7.3 mg/dl (8.6-10.3); Creatinine Clr Calc Pharmacy 44.4 ml/min; Est GFR (African American) 61.2 ml/min; Est GFR (Non-African American) 52.8 ml/min; Potassium 4.1 mmol/L (3.5-5.1)
[2023-11-10] MEDS: CEFEPIME 2,000 MG in SYRINGE 0 ML IV SCH ×2 (02:21→13:46)
[2023-11-10 05:59] LABS: Basophils # (auto) 0.05 K/uL (0.00-0.20); Basophils % (auto) 0.4 %; Eosinophils # (auto) 0.29 K/uL (0.00-0.50); Eosinophils % (auto) 2.1 %; Hematocrit (blood only) 35.9 % (42.0-52.0); Hemoglobin 11.8 g/dl (14.0-18.0); Immature Granulocytes # (auto) 0.16 K/uL (0.01-0.20); Immature Granulocytes % (auto) 1.2 %; Lymphocytes # (auto) 2.44 K/uL (1.20-3.40); Lymphocytes % (auto) 17.7 %; Mean Corpuscular Hemoglobin 30.6 pg (25.0-34.0); Mean Corpuscular Hgb Conc 32.9 g/dL (32.0-36.0); Mean Corpuscular Volume 93.2 fL (80.0-100.0); Mean Platelet Volume 9.2 fL (9.4-12.4); Monocytes # (auto) 0.72 K/uL (0.11-0.59); Monocytes % (auto) 5.2 %; Neutrophils # (auto) 10.15 K/uL (1.40-6.50); Neutrophils % (auto) 73.4 %; Platelet Count 163 K/uL (130-400); RDW Coefficient of Variation 13.2 % (11.5-14.5); RDW Standard Deviation 44.8 fL (36.4-46.3); Red Blood Count 3.85 M/uL (4.70-6.10); White Blood Count 13.81 K/ul (4.8-10.8)
[2023-11-10 06:14] LABS: Albumin Level 2.5 gm/dl (3.4-5.0); BUN Creatinine Ratio 15.9 (10-20); Bilirubin,Total 0.6 mg/dl (0.2-1.0); Calcium 7.5 mg/dl (8.6-10.3); Creatinine Clr Calc Pharmacy 47.1 ml/min; Est GFR (African American) 64.7 ml/min; Est GFR (Non-African American) 55.8 ml/min; Globulin 2.4 gm/dl (2.5-4.0); Magnesium 1.6 mg/dl (1.7-2.4); Total Protein 4.9 gm/dl (6.0-8.3)
[2023-11-10] MEDS: POTASSIUM CHLORIDE CRTAB 20 MEQ TABCR PO SCH (08:02)
[2023-11-10] MEDS: CHOLECALCIFEROL 125 MCG (5,000 UNITS) TAB PO SCH (08:02)
[2023-11-10] MEDS: MAGNESIUM OXIDE 400 MG TAB PO SCH ×2 (08:02→19:59)
[2023-11-10] MEDS: MIDODRINE HCL 2.5 MG TAB PO SCH ×3 (08:02→16:24)
[2023-11-10] MEDS: PANTOprazole 40 MG TAB PO SCH (08:02)
[2023-11-10] MEDS: GABAPENTIN 300 MG CAP PO SCH ×3 (08:04→19:59)
[2023-11-10] MEDS: LANTUS PER UNIT CHARGE SQ SCH (08:11)
[2023-11-10] MEDS: MAGNESIUM SULFATE / D5W 1 GM/100 ML BAG IV SCH ×2 (08:12→10:12)
--- NOTE | 2023-11-10 09:14 | Hospitalist Progress Note ---
Date of Service November 10, 2023 Assessment & Plan (1) Sepsis due to urinary tract infection: (2) Metabolic encephalopathy: (3) Urinary retention: (4) Other urethral stricture, male, meatal: (5) DM2 (diabetes mellitus, type 2): (6) GERD (gastroesophageal reflux disease): (7) Acute kidney injury superimposed on CKD: (8) Hypomagnesemia: Plan #Sepsis due to UTI/metabolic encephalopathy Follow urine culture and sensitivity Continue cefepime 2 g IV every 12 hours Zofran 4 mg IV every 6 hours NSS at 80 mL/h continuous WBC 25.92-->13.8 Lactate 6.9-->1.1 Holding metformin #Acute kidney injury superimposed on CKD Creatinine 1.40, with baseline 1.04 Continue rehydration with normal saline at 80 mL/h #Hypomagnesemia Magnesium 1.2 on admission #Diabetes mellitus Hold metformin Continue insulin glargine units subq every morning Patient Accu-Cheks with NovoLog SSI Admission and Anticipated Discharge Date Admission Date: November 09, 2023 Supervising Physician Co-Signing Physician Notes I also saw the patient confirmed quinonez portions of the clinical history and physical examination. I agree with the impression and plan as noted in the resident documentation. He had some high postvoid residuals. He has been straight cathed by nursing. We discussed putting a Trinh in, but he would rather straight catheter now. He tells us that he has no problems with urination at home. Upon our midmorning exam, the patient lying in bed without complaint. He tells us that he feels better compared to yesterday. Exam Hemodynamically stable. Blood pressure 90/52, though he is low at baseline Heart regular rate and rhythm Respirations nonlabored Data Labs White blood cell count 13.81, down from 16.47 Hemoglobin stable at 11.8 BUN 20, creatinine 1.26. Micro Urine culture collected 11/09/2023 shows Gram negative bacilli, speciation and sensitivity pending Blood cultures collected 11/09/2023 demonstrate no growth at 24 hours Impression and plan Sepsis secondary to urinary source with metabolic encephalopathy, improved Clinically improving Note low normal blood pressures, on midodrine Continue current antibiotics pending cultures I suspect he does have significant postvoid residual at home, probably increased with acute infection Discussed this is a risk for recurrent UTI; he is established with urology Continue straight cath as needed at his preference; Trinh if necessary Additional per resident documentation Subjective No acute events overnight. Patient seen and evaluated at bedside this morning. Much more interactive and appropriate this morning. States he feels he is improving. Not spontaneously voiding, states he is able to urinate and defecate without difficulty at home. Straight cath x3 in last 24hrs. BP remains borderline hypotensive, on midodrine. Otherwise, VSS. Labs reviewed - white count improving, lactate now 1.1, Cr 1.26, Mg 1.6 Review of Systems Review of Systems: reviewed, per HPI Physical Exam Physical Exam: Constitutional: NAD, appropriate and cooperative HEENT: NCAT, no conjunctival injection CV: regular rhythm, no murmur appreciated, extremities well-perfused, no LE edema Resp: CTABL, no wheezes/rales/rhonchi appreciated, no increased work of breathing GI: soft, nondistended, nontender, BS normoactive MSK: no gross deformities appreciated Skin: warm, dry, no rash appreciated Neuro: alert, oriented, no focal neurologic deficit appreciated Results & Data Results & Data Vital Signs (Past 12 Hours) Vital Signs Temp Pulse Pulse Resp BP Pulse Ox O2 Del Method 11/10/23 07:48 36.6 C 63 16 93/56 L 96 Room Air 11/10/23 07:47 Nasal Cannula 11/10/23 04:00 36.6 C 75 18 91/55 L 92 Nasal Cannula 11/09/23 22:25 36.2 C L 76 18 92/57 L 94 Nasal Cannula 11/09/23 21:56 75 O2 Flow Rate 11/10/23 07:48 11/10/23 07:47 2 11/10/23 04:00 2 11/09/23 22:25 1 11/09/23 21:56
[2023-11-10] MEDS ORDERED: POLYETHYLENE (MIRALAX) 17 GM PACK PO PRN (09:24)
[2023-11-11] MEDS: CEFEPIME 2,000 MG in SYRINGE 0 ML IV SCH (01:49)
[2023-11-11 06:01] LABS: Basophils # (auto) 0.04 K/uL (0.00-0.20); Basophils % (auto) 0.5 %; Eosinophils % (auto) 6.1 %; Hematocrit (blood only) 36.4 % (42.0-52.0); Hemoglobin 12.5 g/dl (14.0-18.0); Immature Granulocytes # (auto) 0.14 K/uL (0.01-0.20); Immature Granulocytes % (auto) 1.7 %; Lymphocytes # (auto) 2.38 K/uL (1.20-3.40); Mean Corpuscular Hemoglobin 31.5 pg (25.0-34.0); Mean Corpuscular Hgb Conc 34.3 g/dL (32.0-36.0); Mean Corpuscular Volume 91.7 fL (80.0-100.0); Mean Platelet Volume 9.4 fL (9.4-12.4); Monocytes # (auto) 0.42 K/uL (0.11-0.59); Monocytes % (auto) 5.1 %; Neutrophils # (auto) 4.72 K/uL (1.40-6.50); Neutrophils % (auto) 57.6 %; Platelet Count 171 K/uL (130-400); RDW Coefficient of Variation 12.7 % (11.5-14.5); RDW Standard Deviation 43.5 fL (36.4-46.3); Red Blood Count 3.97 M/uL (4.70-6.10)
[2023-11-11 06:17] LABS: Albumin Level 2.6 gm/dl (3.4-5.0); BUN Creatinine Ratio 14.1 (10-20); Bilirubin,Total 0.6 mg/dl (0.2-1.0); Creatinine Clr Calc Pharmacy 41.8 ml/min; Est GFR (Non-African American) 48.3 ml/min; Globulin 2.5 gm/dl (2.5-4.0); Magnesium 1.9 mg/dl (1.7-2.4); Potassium 4.1 mmol/L (3.5-5.1); Total Protein 5.1 gm/dl (6.0-8.3)
[2023-11-11] MEDS: CHOLECALCIFEROL 125 MCG (5,000 UNITS) TAB PO SCH (07:57)
[2023-11-11] MEDS: PANTOprazole 40 MG TAB PO SCH (07:57)
[2023-11-11] MEDS: MAGNESIUM OXIDE 400 MG TAB PO SCH ×2 (07:57→20:38)
[2023-11-11] MEDS: MIDODRINE HCL 2.5 MG TAB PO SCH ×3 (07:57→16:51)
[2023-11-11] MEDS: GABAPENTIN 300 MG CAP PO SCH ×3 (07:59→20:38)
[2023-11-11] MEDS: POTASSIUM CHLORIDE CRTAB 20 MEQ TABCR PO SCH (08:01)
[2023-11-11] MEDS: LANTUS PER UNIT CHARGE SQ SCH (08:02)
[2023-11-11] MEDS: ERTAPENEM SODIUM 1,000 MG in SYRINGE 0 ML IV SCH (08:30)
--- NOTE | 2023-11-11 12:44 | Hospitalist Progress Note ---
Date of Service November 11, 2023 Assessment & Plan (1) Sepsis due to urinary tract infection: (2) Metabolic encephalopathy: (3) Urinary retention: (4) Other urethral stricture, male, meatal: (5) DM2 (diabetes mellitus, type 2): (6) GERD (gastroesophageal reflux disease): (7) Acute kidney injury superimposed on CKD: (8) Hypomagnesemia: Plan #Sepsis due to UTI/metabolic encephalopathy Follow urine culture and sensitivity Continue cefepime 2 g IV every 12 hours Zofran 4 mg IV every 6 hours NSS at 80 mL/h continuous WBC 25.92-->13.8 Lactate 6.9-->1.1 Holding metformin #Acute kidney injury superimposed on CKD Creatinine 1.40, with baseline 1.04 Continue rehydration with normal saline at 80 mL/h #Hypomagnesemia Magnesium 1.2 on admission #Diabetes mellitus Hold metformin Continue insulin glargine units subq every morning Patient Accu-Cheks with NovoLog SSI Admission and Anticipated Discharge Date Admission Date: November 09, 2023 Supervising Physician Co-Signing Physician Notes I personally examined the patient and verified all quinonez points of history and exam, discussed case, and agree with decision making with Dr Levine feeling good overall, feels like he would be OK at home. denies any feelings of rectal pressure/pain that would be c/w prostatitis. appreciate case management input vitals noted nad heent nc at mmm breathing unlabored no accessory muscles good effort skin no rashes no pallor or icterus neuro no focal deficits Impression and plan Sepsis secondary to urinary source with metabolic encephalopathy, improved no overt s/s prostatitis, and urinary retention improving - suspect all was due to UTI. interestingly sepsis improved on cefepime despite proteus being resistant to the same. now changed to ertapenem. PT/OT eval and treat - hopefully home w IV abx for 10 days total ertapenem and close outpt f/u. Additional per resident documentation Subjective No acute events overnight. Patient seen and evaluated at bedside this morning. Much more interactive and appropriate this morning. States he feels he is improving. Not spontaneously voiding, states he is able to urinate and defecate without difficulty at home. Straight cath x3 in last 24hrs. BP remains borderline hypotensive, on midodrine. Otherwise, VSS. Labs reviewed - white count improving, lactate now 1.1, Cr 1.26, Mg 1.6 Review of Systems Review of Systems: reviewed, per HPI Physical Exam Physical Exam: Constitutional: NAD, appropriate and cooperative HEENT: NCAT, no conjunctival injection CV: regular rhythm, no murmur appreciated, extremities well-perfused, no LE edema Resp: CTABL, no wheezes/rales/rhonchi appreciated, no increased work of breathing GI: soft, nondistended, nontender, BS normoactive MSK: no gross deformities appreciated Skin: warm, dry, no rash appreciated Neuro: alert, oriented, no focal neurologic deficit appreciated Results & Data Results & Data Vital Signs (Past 12 Hours) Vital Signs Temp Pulse Pulse Resp BP Pulse Ox O2 Del Method 11/11/23 11:36 36.4 C 77 18 105/68 96 Nasal Cannula 11/11/23 07:45 36.3 C L 73 18 104/68 94 Nasal Cannula 11/11/23 07:31 87 11/11/23 07:28 Nasal Cannula 11/11/23 04:07 36.6 C 67 20 101/65 94 Nasal Cannula O2 Flow Rate 11/11/23 11:36 3 11/11/23 07:45 3 11/11/23 07:31 11/11/23 07:28 3 11/11/23 04:07 3
--- NOTE | 2023-11-11 18:32 | Billing Data ---
Date of Service November 11, 2023 Coding Level of Care Code 21423 SUB INP/OBS CARE MIN
[2023-11-12 06:26] LABS: Albumin Level 2.7 gm/dl (3.4-5.0); BUN Creatinine Ratio 16.4 (10-20); Bilirubin,Total 0.6 mg/dl (0.2-1.0); Calcium 8.1 mg/dl (8.6-10.3); Creatinine Clr Calc Pharmacy 48.3 ml/min; Est GFR (African American) 71.5 ml/min; Est GFR (Non-African American) 61.7 ml/min; Globulin 2.7 gm/dl (2.5-4.0); Magnesium 1.7 mg/dl (1.7-2.4); Potassium 3.9 mmol/L (3.5-5.1); Total Protein 5.4 gm/dl (6.0-8.3)
[2023-11-12 06:40] LABS: Basophils # (auto) 0.06 K/uL (0.00-0.20); Basophils % (auto) 0.9 %; Eosinophils # (auto) 0.37 K/uL (0.00-0.50); Eosinophils % (auto) 5.5 %; Hematocrit (blood only) 39.7 % (42.0-52.0); Hemoglobin 13.7 g/dl (14.0-18.0); Immature Granulocytes # (auto) 0.07 K/uL (0.01-0.20); Lymphocytes # (auto) 2.21 K/uL (1.20-3.40); Lymphocytes % (auto) 32.7 %; Mean Corpuscular Hemoglobin 31.2 pg (25.0-34.0); Mean Corpuscular Hgb Conc 34.5 g/dL (32.0-36.0); Mean Corpuscular Volume 90.4 fL (80.0-100.0); Mean Platelet Volume 9.4 fL (9.4-12.4); Monocytes # (auto) 0.42 K/uL (0.11-0.59); Monocytes % (auto) 6.2 %; Neutrophils # (auto) 3.63 K/uL (1.40-6.50); Neutrophils % (auto) 53.7 %; Platelet Count 193 K/uL (130-400); RDW Coefficient of Variation 12.2 % (11.5-14.5); Red Blood Count 4.39 M/uL (4.70-6.10); White Blood Count 6.76 K/ul (4.8-10.8)
[2023-11-12] MEDS: LANTUS PER UNIT CHARGE SQ SCH (07:53)
[2023-11-12] MEDS: POTASSIUM CHLORIDE CRTAB 20 MEQ TABCR PO SCH (07:53)
[2023-11-12] MEDS: ERTAPENEM SODIUM 1,000 MG in SYRINGE 0 ML IV SCH (07:53)
[2023-11-12] MEDS: GABAPENTIN 300 MG CAP PO SCH ×2 (07:54→13:19)
[2023-11-12] MEDS: CHOLECALCIFEROL 125 MCG (5,000 UNITS) TAB PO SCH (07:54)
[2023-11-12] MEDS: MAGNESIUM OXIDE 400 MG TAB PO SCH (07:54)
[2023-11-12] MEDS: PANTOprazole 40 MG TAB PO SCH (07:54)
[2023-11-12] MEDS: MIDODRINE HCL 2.5 MG TAB PO SCH ×3 (07:54→17:07)
--- NOTE | 2023-11-12 11:27 | Discharge Summary ---
Date of Service November 12, 2023 Admission HPI Per Admitting Provider The patient is a 73-year-old male with a past medical history including diabetes mellitus, GERD, esophageal candidiasis, urinary retention, phimosis, metabolic encephalopathy, right hydronephrosis and meatal urethral stricture. He was most recently admitted to [facility] from 04/05-04/11/2023, at which time he was treated for urine tract infection, and seen by urology due to issues with phimosis and meatal urethral stricture. He did have a Trinh catheter placed at that time by urology, which has since been discontinued. He was most recently seen by urology on 09/12/2023 for follow-up, having had a circumcision on 06/20/2023. Postoperatively had a Trinh catheter placed, and then passed a voiding trial in clinic on 06/26/2023. The patient reports that he feels that he continues to urinate normally since that time. He does have confusion, generalized fatigue and weakness, and decreased oral intake over the past few days. Significant laboratories: WBC 25.92, creatinine 1.40, glucose 214, lactic acid 6.9, magnesium 1.2, total bilirubin 1.2. Urinalysis suggests infection From the ED the patient received the following: Normal saline 1 L, magnesium sulfate 2 g IV, normal saline 500 mL and cefepime 2 g IV Admission Exam Per Admitting Provider The patient is awake, and responsive, well developed and well nourished, normocephalic and atraumatic, lying in bed and in no acute distress. HEENT--PERRL, EOMI, mucous membranes and oropharynx mildly dry. Neck--supple. No JVD. No bruits. Thyroid normal, trachea midline, no adenop athy. Heart--normal S1 and S2. No murmurs, rubs or gallops. Lungs--clear bilaterally, no respiratory distress, no accessory muscle use. Abdomen--normal bowel sounds and soft. Nontender. Nondistended, no hernias or masses, no organomegaly. Extremities--no cyanosis or clubbing. No edema. Dermatologic--normal skin turgor, normal color, no abnormal lymph nodes, no rash. Neurologic--cranial nerves II through XII grossly intact. Rheumatologic--normal range of motion. Psychiatric--normal affect. Principal Diagnosis UTI - complicated Discharge Exam Constitutional: NAD, appropriate and cooperative HEENT: NCAT, no conjunctival injection CV: regular rhythm, no murmur appreciated, extremities well-perfused, no LE edema Resp: CTABL, no wheezes/rales/rhonchi appreciated, no increased work of breathing GI: soft, nondistended, nontender, BS normoactive MSK: no gross deformities appreciated Skin: warm, dry, no rash appreciated Neuro: alert, oriented, no focal neurologic deficit appreciated Discharge Data Allergies Allergy/AdvReac Type Severity Reaction Status Date / Time No Known Allergies Allergy Verified 11/09/23 01:33 Consultations 11/09/23 02:40 ED Decision to Admit Stat Hospital Course (1) Sepsis due to urinary tract infection: (2) Metabolic encephalopathy: (3) Urinary retention: (4) Other urethral stricture, male, meatal: (5) DM2 (diabetes mellitus, type 2): (6) GERD (gastroesophageal reflux disease): (7) Acute kidney injury superimposed on CKD: (8) Hypomagnesemia: Plan #Sepsis due to UTI/metabolic encephalopathy UCx + proteus vulgaris with wide resistance pattern Ertapenam 1g q24h 11/23 received at discharge, will continue further 8 doses with home health US guided peripheral IV placed for home health use Zofran 4 mg IV every 6 hours NSS at 80 mL/h continuous WBC 25.92-->13.8-->6.76 Lactate 6.9-->1.1 #Acute kidney injury superimposed on CKD Creatinine 1.40, with baseline 1.04; 1.16 at discharge #Hypomagnesemia Magnesium 1.2 on admission Replete as indicated #Diabetes mellitus Hold metformin Continue insulin glargine units subq every morning Patient Accu-Cheks with NovoLog SSI Resume metformin at discharge Total Time Total Time Spent Total Time Spent (In Minutes): less than 30 Discharge Plan Discharge Items Patient Disposition: Home - Home Health Services Reason For Visit: UTI, CARLO, HYPOMAGNESEMIA Discharge Diagnosis: UTI- Complicated Activity: Resume your previous activity Non-emergency contact: Primary Care Provider and Urologist Call non-emergency contact if: you have any medication questions, your symptoms worsen and you have a fever Follow-up/Referrals: Jennifer Soni [Primary Care Provider] - (PLEASE CALL YOUR PRIMARY CARE PROVIDER TO SCHEDULE A HOSPITAL DISCHARGE FOLLOW-UP APPOINTMENT WITHIN 7-10 DAYS) Diet: Carb Consistent or DM2 Addtl Attending Provider Instructions: You were admitted to the hospital for urinary tract infection and acute kidney injury. You were treated with antibiotics and IV fluids. While you were here we obtained a urine culture that grew a bacteria that was resistant to the antibiotics you were initially given when you were admitted to the hospital. We changed the antibiotics to cover for this bacteria. You received two doses of Ertapenem, the new antibiotic as an inpatient and will receive the remaining 8 doses in your home with the help of [facility]. A discharge summary will be sent to your primary care physician to ensure continuity of care. Please bring this discharge summary with you to your next office appointment so that your provider can review it at that time. Follow-up appointments: Make a follow-up appointment with your PCP within the next week. It is very important that you follow up with them shortly after discharge from the hospital. You should also make and appointment to see your urologist Keep all your follow-up appointments as already scheduled. If you cannot make an appointment, notify your provider. Medications: Your medication list has been reviewed and reconciled upon discharge to ensure accuracy and continuity of care. An updated list of all your medications is included with your hospital discharge paperwork. Please review this list closely, and make note of any changes. We sent a new medication called ertapenem to your [employer] company. You will receive one dose of ertapenem daily for the next 8 days. If you have any issues filling these prescriptions, please call [phone] and ask to leave a message for Dr. Derian Levine. Take your medications as instructed; do not skip a dose of your medicines. Make sure all of your doctors know every medicine you are taking (including zdis-iev-tograji medicines, vitamins, and supplements). Call your primary care provider before taking any new medicines (including xrso-tmr-[id number] medicines, vitamins, and supplements), because some of these may interact with your current medications, or may make your symptoms worse. Tell your primary care provider if you cannot afford your medications. CONTACT YOUR PRIMARY CARE PROVIDER if you experience any of the following: Fevers Difficulty urinating Difficulty following your treatment plan, or difficulty taking medications CALL 911 OR GO TO THE EMERGENCY DEPARTMENT if you experience any of the follo wing: Sudden, severe abdominal pain or nausea/vomiting Severe chest pain, or chest pain that radiates (moves) to your jaw or arm Sudden, severe shortness of breath or difficulty breathing Thank you for allowing us to participate in your care. Pending Studies at Discharge: No Stand-Alone Forms: My [facility] Medications and DC Order Prescriptions: Continued potassium chloride 20 mEq tablet,ER particles/crystals 20 meq PO QAM magnesium oxide 400 mg (241.3 mg magnesium) tablet 400 mg PO BID pantoprazole 40 mg tablet,delayed release (DR/EC) 40 mg PO QAM insulin aspart U-100 [Novolog FlexPen U-100 Insulin] 100 unit/mL (3 mL) insulin pen 0 sliding scale dose SUBCUT TID Patient Comments: per sliding scale metformin 1,000 mg Tablet 1,000 mg PO BID gabapentin 300 mg Capsule 300 mg PO TID cholecalciferol (vitamin D3) [Vitamin D3] 125 mcg (5,000 unit) Tablet 125 mcg PO QAM midodrine 2.5 mg tablet 2.5 mg PO TID insulin glargine [Lantus Solostar U-100 Insulin] 100 unit/mL (3 mL) insulin pen 6 unit SUBCUT QAM Discharge Orders: Discharge Order (Routine); Ordered 11/12/23 Ordered By: Derian Levine Admission Data Admit Date/Time: 11/09/23 03:25 Attending Provider: Ilia Dong Admit Provider: Ryan Earl Primary Care Provider: Jennifer Soni Other Providers: Ryan Earl Other Interventions: Discharge Summary Assessment (RN) Last Done: 11/12/23 11:33 Supervising Physician Co-Signing Physician Notes I personally examined the patient and verified all quinonez points of history and exam, discussed case, and agree with decision making with Dr Levine feels good. Happy that he is able to be discharged today. Appreciate case management assistance. vitals noted nad heent nc at mmm breathing unlabored no accessory muscles good effort skin no rashes no pallor or icterus neuro no focal deficits Impression and plan Sepsis secondary to urinary source with metabolic encephalopathy, improved no overt s/s prostatitis, and urinary retention improving - suspect all was due to UTI. interestingly sepsis improved on cefepime despite proteus being resistant to the same. now changed to ertapenem. Set up for this for home. Stable for discharge today. Outpatient PCP follow-up. Additional per resident documentation
--- NOTE | 2023-11-12 18:26 | Billing Data ---
Date of Service November 12, 2023 Coding Level of Care Code 34217 IN/OBS DISCH 30 MIN/LESS
== END 2023-11-12 18:22 | disposition home health service (06) | DRG 871 ==
LOC: ED 00:19 → SUATTDRO 03:25 → EDINP 03:25 → 2W 05:23

== ENCOUNTER 2023-11-28 09:49 | Inpatient (IN) ==
--- NOTE | 2023-11-28 10:10 | Emergency Department Note ---
Impression & Plan C. difficile colitis, Acute hypotension, Acute dehydration ED Provider Note Name: JENSEN CHAPMAN Age: 73 Sex: Male Arrives Via: Walk-In Informant: Patient and sons who give background information. ED Provider: Mir Stock MD Chief Complaint: Generalized weakness Impression: As per impressions above Medical Decision Making: Pleasant 73-year-old gentleman with history of diabetes GERD and recurrent UTIs arrives for evaluation of severe diarrhea the last few weeks and significant weakness. He is now so weak he can barely get around the house. On examination he is significantly dehydrated. Blood pressures are pretty soft. He was given 2 L normal saline bolus IV for sepsis rehydration (body weight 64.3 kg with fluid resuscitation goal 1929 mL). Following this blood pressure has improved patient does appear a bit better. Laboratory workup is relatively reassuring. No mildly elevated white count and initially elevated lactic acid. Repeat lactate is improved following fluid resuscitation. Vital signs have stabilized. Given deconditioned state with early evidence of severe sepsis hospitalization clearly indicated. Patient does not have significant tenderness palpation the abdomen. I do not feel this is consistent with surgical abdomen at this time. His C. difficile testing is positive. He was given 125 mg p.o. Vanco for initial treatment. He was also given some IV vancomycin initially in the setting of hypotension and concern for severe sepsis. Sepsis examination. Reevaluation at 12:30 PM. Patient's blood pressure is improved he is breathing comfortably and he has good cap refill. Triage/Nursing Notes reviewed by Me Differential:Infection, dehydration, metabolic abnormality, hypo/hyperglycemia, electrolyte disturbance, anemia, hypoxia, cardiac sources, intracerebral event, toxicologic, neurologic, as well as other pathologies. Vital Signs: reviewed and remarkable for hypotension Interventions: nss bolus 2 L IV, vanco IV, vanco PO Labs:ED labs Reviewed by me and remarkable for mildly elevated white count, elevated lactate amongst others Chest x-ray as per my interpretation no infiltrate or effusion appreciated. EKG. As per my interpretation. Indication sepsis. Sinus tach 102 bpm 508 QTc. No ectopy nor ischemia appreciated. When compared to EKG of November 09, 2023 there are no significant changes. Consults:Dr. Murray [facility] service Plan: Disposition:Hospitalization. Condition: Fair History of Present Illness: 73-year-old gentleman arrives for evaluation of weakness. Patient notes he had been hospitalized 2 weeks ago for sepsis due to UTI. He been on antibiotics. For the last 1 to 2 weeks ago he had worsening diarrhea. He states he has constant diarrhea. He is unable to control his bowels. Notes worsening weakness and fatigue. He has been trying to eat and drink but it is tough to keep ahead. Denies any specific abdominal pain, back pain, nausea, vomiting, chest pain, headache, neck pain or other concerning signs or symptoms. He notes he is getting to the point where so weak he is stumbling around the house. No head injuries or loss of consciousness. Not taking any medications for the diarrhea. Denies any fevers. Past Medical History: Diabetes, GERD, recurrent UTIs Home Medications:See Below Allergies: No known drug allergy Vitals:Blood Pressure: 83/60, Pulse 97, RR 16, T 36.1C, O2 98% on RA Physical Exam: GENERAL: Patient is unwell/tired appearing and in mild distress. Dehydrated appearing RESPIRATORY: No dyspnea. Clear to auscultation and equal bilaterally. CARDIOVASCULAR: Regular rate and rhythm.No murmur appreciated. GASTROINTESTINAL: Moderately hyperactive bowel sounds. Abdomen soft, non- tender, no peritonitis. EXTREMITIES: Normal motion all extremities, no cyanosis, moderately edematous lower legs NEUROLOGIC: Alert and oriented. No focal neurologic deficits appreciated SKIN: No rash, no jaundice, no diaphoresis. PSYCH: Appropriate GCS: 15 ED Course: Times/Reassessments: Patient does appear much better after fluids. Agreeable to hospitalization. Mir Stock MD Past Med/Surg History Medical History (Updated 11/28/23 @ 18:14 by Mir Stock MD) 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 GERD (gastroesophageal reflux disease) Diabetes mellitus, type 2 Cataract upcoming surgery for correction Low blood pressure On Midodrine Chronic obstructive pulmonary disease Surgical History History of esophagogastroduodenoscopy (EGD) History of colonoscopy History of tooth extraction Family History Other No family history of adverse response to anesthesia Social History Smoking Status: Current every day smoker Tobacco Type: Cigarettes Cigarettes Per Day: 10; Second Hand Exposure: No; Do You Dip or Chew Tobacco: No; Hx Alcohol Use: No Hx Substance Use: No Preferred Language: Paraguayan Communication Ability: Effective Peripheral Equipment Operator Required: No Beliefs That Will Affect Care: None Current Living Situation: Family Current Living Situation Comment: lives with son Russ Other Information That Helps Us Care for You: No Feels Safe at Home: Yes Safety Concerns: Feels Safe At This Time Assistive Devices: Denture - Upper, Denture - Lower and Glasses Allergies Allergies Allergy/AdvReac Type Severity Reaction Status Date / Time No Known Allergies Allergy Verified 11/09/23 01:33 Home Meds Home Medications Medication Instructions Recorded Confirmed insulin aspart U-100 100 unit/mL 0 sliding scale dose subcut TID 04/05/23 11/28/23 (3 mL) subcutaneous pen (Novolog FlexPen U-100 Insulin aspart) magnesium oxide 400 mg (241.3 mg 400 mg PO BID 04/05/23 11/28/23 magnesium) tablet pantoprazole 40 mg tablet,delayed 40 mg PO QAM 04/05/23 11/28/23 release cholecalciferol (vitamin D3) 125 125 mcg PO QAM 06/18/23 11/28/23 mcg (5,000 unit) tablet (Vitamin D3) gabapentin 300 mg capsule 300 mg PO TID 06/18/23 11/28/23 insulin glargine 100 unit/mL (3 6 unit subcut QAM 06/18/23 11/28/23 mL) subcutaneous pen (Lantus Solostar U-100 Insulin) metformin 1,000 mg tablet 1,000 mg PO BID 06/18/23 11/28/23 midodrine 2.5 mg tablet 2.5 mg PO TID 06/18/23 11/28/23 potassium chloride 20 mEq 20 meq PO QAM 11/09/23 11/28/23 tablet,extended release(part/cryst) Results & Data (ED) Vital Signs Vital Signs - 24 hr 11/28/23 09:53 11/28/23 10:18 11/28/23 10:30 Temperature 36.1 C L Temperature Source Temporal Artery Scan Pulse Rate 97 H 89 Pulse Rate [Apical] 79 Respiratory Rate 16 18 Respiratory Effort / Characteristics Non-Labored Spontaneous Non-Labored Respiratory Depth Normal Normal Respiratory Pattern Blood Pressure 83/60 L Blood Pressure [Left Arm] 98/66 L Blood Pressure Mean 67 Blood Pressure Mean [Left Arm] 76 Blood Pressure Position [Left Arm] Pulse Oximetry 98 98 Oxygen Delivery Method Room Air Room Air Sepsis Recent Fever Within 48 Hours No Sepsis New/Unexplained Change in Mental Status Yes Sepsis Action Taken by Nursing No Action Required 11/28/23 12:27 Temperature Temperature Source Pulse Rate Pulse Rate [Apical] 80 Respiratory Rate 18 Respiratory Effort / Characteristics Non-Labored Spontaneous Respiratory Depth Normal Respiratory Pattern Regular Blood Pressure Blood Pressure [Left Arm] 106/70 Blood Pressure Mean Blood Pressure Mean [Left Arm] 82 Blood Pressure Position [Left Arm] Sitting Pulse Oximetry 99 Oxygen Delivery Method Room Air Sepsis Recent Fever Within 48 Hours Sepsis New/Unexplained Change in Mental Status Sepsis Action Taken by Nursing Laboratory Data 11/28/23 10:07 11/28/23 16:17 Lab Results 11/28/23 11/28/23 11/28/23 Range/Units 10:07 10:42 11:01 WBC 13.69 H (4.8-10.8) K/ul RBC 4.64 L (4.70-6.10) M/uL Hgb 14.2 (14.0-18.0) g/dl Hct 42.3 (42.0-52.0) % MCV 91.2 (80.0-100.0) fL MCH 30.6 (25.0-34.0) pg MCHC 33.6 (32.0-36.0) g/dL RDW Std Deviation 42.5 (36.4-46.3) fL RDW Coeff of Cassia 12.8 (11.5-14.5) % Plt Count 338 (130-400) K/uL MPV 9.2 L (9.4-12.4) fL Immature Gran % (Auto) 1.2 % Neut % (Auto) 65.1 % Lymph % (Auto) 20.3 % Grundy % (Auto) 11.3 % Eos % (Auto) 1.2 % Baso % (Auto) 0.9 % Neut # (Auto) 8.90 H (1.40-6.50) K/uL Lymph # (Auto) 2.78 (1.20-3.40) K/uL Grundy # (Auto) 1.55 H (0.11-0.59) K/uL Eos # (Auto) 0.17 (0.00-0.50) K/uL Baso # (Auto) 0.13 (0.00-0.20) K/uL Immature Gran # (Auto) 0.16 (0.01-0.20) K/uL Sodium 136 (136-145) mmol/L Potassium TNP 3.3 L Chloride 105 (98-107) mmol/L Carbon Dioxide 23 (21-32) mmol/L Anion Gap 8 (3-11) BUN 17 (6-23) mg/dl Creatinine 1.40 (0.6-1.4) mg/dl Est Cr Clr Drug Dosing Not Reportable Est GFR ( Amer) 57.0 ml/min Est GFR (Non-Af Amer) 49.1 ml/min BUN/Creatinine Ratio 12.1 (10-20) Glucose 125 H (70-99(Fasting)) mg/dl Lactate 2.6 H* (0.4-2.0) mmol/L Calcium 7.7 L (8.6-10.3) mg/dl Magnesium 1.5 L (1.7-2.4) mg/dl Total Bilirubin 0.8 (0.2-1.0) mg/dl Direct Bilirubin TNP 0.2 AST TNP 29 ALT 26 (7-52) U/L Alkaline Phosphatase 454 H (34-104) U/L Troponin I High Sens 6.5 (0-20) pg/ml Total Protein 6.0 (6.0-8.3) gm/dl Albumin 2.9 L (3.4-5.0) gm/dl Lipase 3 L (11-82) U/L Procalcitonin 0.28 (0-0.5) ng/ml Stl C. cayetanensis PCR Not Detected (NotDetected) Stool Rotavirus A PCR Not Detected (NotDetected) Stl Adenov F 40/41 PCR Not Detected (NotDetected) Stool Astrovirus (PCR) Not Detected (NotDetected) Stool Campylobacter PCR Not Detected (NotDetected) Stl C. diff Tox B Gene Positive Cdiff Gene H (Neg) Stl C.difficile Tox A&B Positive Cdiff Toxin A* (Negative) Stool Cryptosporidium PCR Not Detected (NotDetected) Stl E.coli Shiga Tox PCR Not Detected (NotDetected) Stl Enterotoxigenic E PCR Not Detected (NotDetected) Stool EPEC (PCR) Not Detected (NotDetected) Stool EAEC (PCR) Not Detected (NotDetected) Stl E. histolytica PCR Not Detected (NotDetected) Stool Giardia Lamblia PCR Not Detected (NotDetected) Stool Salmonella PCR Not Detected (NotDetected) Stool Sapovirus (PCR) Not Detected (NotDetected) Stl P. shigelloides PCR Not Detected (NotDetected) Stl Shigella/EIEC PCR Not Detected (NotDetected) St Y.enterocolitica PCR Not Detected (NotDetected) Stool Vibrio (PCR) Not Detected (NotDetected) Stl Vibrio cholerae PCR Not Detected (NotDetected) Stl Norovirus GI/GII PCR Not Detected (NotDetected) SARS-CoV-2 (PCR) NEGATIVE (Negative) Influenza Type A (PCR) Negative (Neg) Influenza Type B (PCR) Negative (Neg) RSV (RT-PCR) Negative (Neg) Administered Medications Heparin Sodium (Porcine) (Heparin Sod 5,000 Unit/0.5 Ml Vial) 5,000 units SQ Q8 ISABELL Stop: 12/28/23 13:59 Last Admin: 11/28/23 16:03 Dose: 5,000 units Documented By: WOO Lactated Ringer's (Lr) 1,000 mls @ 125 mls/hr IV .Q8H ISABELL Stop: 12/28/23 12:44 Last Admin: 11/28/23 14:15 Dose: 125 mls/hr Documented By: WOO Insulin Aspart (Insulin Aspart Per Unit Charge) 0 units SC ACHS ISABELL Stop: 12/28/23 16:29 Last Admin: 11/28/23 17:44 Dose: Not Given Documented By: WOO Midodrine (Midodrine Hcl 2.5 Mg Tab) 2.5 mg PO TID ISABELL Stop: 12/28/23 14:59 Last Admin: 11/28/23 16:03 Dose: 2.5 mg Documented By: WOO Discontinued Medications Vazquez Syrup (Vazquez Syrup 5 Ml Udp) 5 ml PO ONE STA Stop: 11/28/23 11:03 Last Admin: 11/28/23 11:27 Dose: 5 ml Documented By: SKB Sodium Chloride (Nss) 1,000 mls @ 999 mls/hr IV .Q1H1M ONE Stop: 11/28/23 11:06 Last Infusion: 11/28/23 11:47 Dose: Infused Documented By: Admin: 11/28/23 10:20 Dose: 999 mls/hr Documented By: KRUNAL Sodium Chloride (Nss) 1,000 mls @ 999 mls/hr IV .Q1H1M ONE Stop: 11/28/23 12:01 Last Infusion: 11/28/23 12:48 Dose: Infused Documented By: Admin: 11/28/23 11:26 Dose: 999 mls/hr Documented By: KRUNAL Vancomycin HCl 1,500 mg/ (Sodium Chloride) 530 mls @ 200 mls/hr IV NOW ONE Stop: 11/28/23 13:30 Last Infusion: 11/28/23 17:56 Dose: Infused Documented By: Admin: 11/28/23 14:15 Dose: 200 mls/hr Documented By: WOO Magnesium Sulfate/Dextrose (Magnesium Sulfate / D5w) 1 gm in 100 mls @ 100 mls/hr IV NOW STA Stop: 11/28/23 12:07 Last Infusion: 11/28/23 12:49 Dose: Infused Documented By: Admin: 11/28/23 11:27 Dose: 100 mls/hr Documented By: KRUNAL Potassium Chloride (K Roberto / Wtr) 10 meq in 100 mls @ 100 mls/hr IV Q1H ISABELL Stop: 11/28/23 15:44 Last Admin: 11/28/23 17:23 Dose: 100 mls/hr Documented By: Infusion: 11/28/23 17:02 Dose: Infused Documented By: Admin: 11/28/23 16:02 Dose: 100 mls/hr Documented By: WOO Magnesium Sulfate/Dextrose (Magnesium Sulfate / D5w) 1 gm in 100 mls @ 50 mls/hr IV ONE ONE Stop: 11/28/23 14:35 Last Admin: 11/28/23 16:02 Dose: 50 mls/hr Documented By: WOO Miscellaneous (Patient's Height &/Or Weight Needed) 1 each N/A NOW STA Stop: 11/28/23 12:07 Last Admin: 11/28/23 13:33 Dose: 1 each Documented By: KRUNAL Vancomycin HCl (Vancomycin Hcl 125 Mg/2.5ml Soln) 125 mg PO ONE STA Stop: 11/28/23 11:03 Last Admin: 11/28/23 11:27 Dose: 125 mg Documented By: KRUNAL Imaging Data Radiologist's Impression: Chest X-Ray 11/28/23 10:07 XR chest 1V portable CLINICAL HISTORY: sepsis, weakness COMPARISON STUDY: Chest CT April 08, 2019. Chest radiograph November 09, 2023. FINDINGS: There is no pneumothorax or pleural effusion. Skin folds project over the left chest. Edema is again noted. There is no consolidation. No evidence for pulmonary edema. Cardiomediastinal silhouette is stable. Patient is mildly rotated. IMPRESSION: No acute cardiopulmonary findings. Emphysema. ACT 112: Negative or not required by law. Electronically signed by: Canelo Gonzales M.D. 11/28/2023 10:47 AM Discharge Plan Visit Data Chief Complaint: Diarrhea Stated Complaint: DIARRHEA AFTER ANTIBIOTICS FOR UTI ED Provider: Mir Stock Discharge Problem: C. difficile colitis, Acute hypotension, Acute dehydration Patient Disposition: Admitted As Inpatient Discharge Instructions Interventions: ED Discharge Assessment Last Done: 11/28/23 13:55
[2023-11-28] MEDS: SODIUM CHLORIDE 0.9% 1,000 ML IV ONE ×2 (10:20→11:26)
[2023-11-28 10:27] LABS: Basophils # (auto) 0.13 K/uL (0.00-0.20); Basophils % (auto) 0.9 %; Eosinophils # (auto) 0.17 K/uL (0.00-0.50); Eosinophils % (auto) 1.2 %; Hematocrit (blood only) 42.3 % (42.0-52.0); Hemoglobin 14.2 g/dl (14.0-18.0); Immature Granulocytes # (auto) 0.16 K/uL (0.01-0.20); Immature Granulocytes % (auto) 1.2 %; Lymphocytes # (auto) 2.78 K/uL (1.20-3.40); Lymphocytes % (auto) 20.3 %; Mean Corpuscular Hemoglobin 30.6 pg (25.0-34.0); Mean Corpuscular Hgb Conc 33.6 g/dL (32.0-36.0); Mean Corpuscular Volume 91.2 fL (80.0-100.0); Mean Platelet Volume 9.2 fL (9.4-12.4); Monocytes # (auto) 1.55 K/uL (0.11-0.59); Monocytes % (auto) 11.3 %; Neutrophils % (auto) 65.1 %; Platelet Count 338 K/uL (130-400); RDW Coefficient of Variation 12.8 % (11.5-14.5); RDW Standard Deviation 42.5 fL (36.4-46.3); Red Blood Count 4.64 M/uL (4.70-6.10); White Blood Count 13.69 K/ul (4.8-10.8)
--- NOTE | 2023-11-28 10:48 | XRay Report ---
XR chest 1V portable CLINICAL HISTORY: sepsis, weakness COMPARISON STUDY: Chest CT April 08, 2019. Chest radiograph November 09, 2023. FINDINGS: There is no pneumothorax or pleural effusion. Skin folds project over the left chest. Edema is again noted. There is no consolidation. No evidence for pulmonary edema. Cardiomediastinal silhou ette is stable. Patient is mildly rotated. IMPRESSION: No acute cardiopulmonary findings. Emphysema. ACT 112: Negative or not required by law. Electronically signed by: Canelo Gonzales M.D. 11/28/2023 10:47 AM
[2023-11-28 10:58] LABS: Alanine Aminotransferase 26 U/L (7-52); Albumin Level 2.9 gm/dl (3.4-5.0); Alkaline Phosphatase 454 U/L (34-104); Anion Gap 8 (3-11); BUN Creatinine Ratio 12.1 (10-20); Bilirubin,Total 0.8 mg/dl (0.2-1.0); Blood Urea Nitrogen 17 mg/dl (6-23); Calcium 7.7 mg/dl (8.6-10.3); Carbon Dioxide 23 mmol/L (21-32); Chloride 105 mmol/L (98-107); Est GFR (Non-African American) 49.1 ml/min; Glucose 125 mg/dl (70-99(Fasting)); Lipase 3 U/L (11-82); Magnesium 1.5 mg/dl (1.7-2.4); Sodium 136 mmol/L (136-145); Troponin I High Sensitivity 6.5 pg/ml (0-20)
[2023-11-28] MEDS ORDERED: VANCOMYCIN CONSULT ACTIVE PRN (11:01)
[2023-11-28] MEDS: MAGNESIUM SULFATE / D5W 1 GM/100 ML BAG IV STA (11:27)
[2023-11-28] MEDS: CHERRY SYRUP 5 ML UDP PO STA (11:27)
[2023-11-28] MEDS: VANCOMYCIN HCL 125 MG/2.5ML SOLN PO STA (11:27)
[2023-11-28 11:43] LABS: Influenza A virus by PCR Negative (Neg); Influenza B virus by PCR Negative (Neg); RSV by PCR Negative (Neg); SARS CoV2 RNA(COVID-19) Ceph NEGATIVE (Negative)
[2023-11-28 11:47] LABS: Bilirubin Direct 0.2 mg/dl (0-0.2); Potassium 3.3 mmol/L (3.5-5.1)
--- NOTE | 2023-11-28 12:11 | History & Physical Report ---
Date of Service November 28, 2023 Assessment & Plan (1) C. difficile colitis: Plan: Sepsis due to C. difficile colitis, weakness Recent hospital admission 11/09/2023 -11/11/2023 for urosepsis. Received 10 days of ertapenem at that time. Loose bowels initially on discharge but this progressed to constant completely liquid diarrhea. Urinary symptoms have resolved Leukocytosis of 13. C. difficile is positive. Patient with a soft abdomen and minimal/no pain. No rebound/guarding. - PCT negative Initially hypotensive and mildly tachycardic, tachycardia has resolved and BP has normalized following 2 L of crystalloid resuscitation. Suspect volume depletion with C. difficile diarrhea and poor p.o. intake Supplemental LR continued until PO intake improved. No history of CHF Vancomycin every 6 hours continued - EKG sinus tachycardia without acute ischemic ST segment changes. No chest pain. trop wnl. Blood cultures pending. Patient received IV vancomycin x 1 due during sepsis were, with identified source of C. difficile and no other localizing symptoms will continue p.o. vancomycin and defer additional IV antibiotic Patient reassessed following completion of crystalloid fluid and additional antibiotics. Greatly clinically improved, no distress, appears slightly contracted to nearing euvolemic. Admitted to medical/surge (2) Septic shock: (3) Acute kidney injury superimposed on CKD: Plan: CARLO Baseline creatinine around 1.16, borderline CARLO with creatinine 1.40 on admission Fluids as noted Trend BMP daily (4) DM2 (diabetes mellitus, type 2): Plan: - basal/bolus continued. Conservative SSI . Goal BSG [id number] (5) Hypomagnesemia: Plan: Hypomagnesemia, hypokalemia Repleted, trended. Likely from GI losses with poor p.o. intake. P.o. magnesium twice daily continued, daily oral potassium increased to twice daily until electrolytes stabilize. Patient likely with total body potassium depletion which will take time to stabilize due to several days of severe diarrhea Plan DVT prophylaxis: Heparin Disposition: Medical/surgical CODE STATUS: Full code Diet: DM History of Present Illness Primary Care Provider: Jennifer Soni Randall Griffin is a 73yo M who has past medical history of DM 2, GERD, esophageal candidiasis, urethral stricture who presents Weakness after being hospitalized 2 weeks prior for urosepsis and who in the last 1 to 2 weeks has had constant diarrhea, weakness, and fatigue and he was found to have leukocytosis and elevated lactate on admission. Randall is seen at the bedside. He reports he completed antibiotics for urosepsis and his symptoms resolved but shortly after returning home developed diarrhea which is progressed to 812 times per day, is generally completely liquid and foul-smelling. Has had a poor appetite although no nausea or vomiting. No GI bleeding. Reports is gradually felt weaker and more fatigued. Denies abdominal pain, although notes he has done some low midline discomfort which is improved at time of admitting assessment. Feels improved following initial IV fluids. Denies past history of C. difficile. No chest pain, chest pressure, shortness of breath. Denies fevers and chills but notes he was cold earlier, feels improved at time of admitting assessment. Denies shaking chills/rigor Medical History: Reviewed Medications: Reviewed Surgical History: Reviewed Family history: Reviewed Allergies: Reviewed Social History: Reviewed Code Status: Reviewed Allergies Allergy/AdvReac Type Severity Reaction Status Date / Time No Known Allergies Allergy Verified 11/09/23 01:33 Home Medications Medication Instructions Recorded Confirmed Type insulin aspart U-100 100 unit/mL 0 sliding scale dose subcut TID 04/05/23 11/28/23 History (3 mL) subcutaneous pen (Novolog FlexPen U-100 Insulin aspart) magnesium oxide 400 mg (241.3 mg 400 mg PO BID 04/05/23 11/28/23 History magnesium) tablet pantoprazole 40 mg tablet,delayed 40 mg PO QAM 04/05/23 11/28/23 History release cholecalciferol (vitamin D3) 125 125 mcg PO QAM 06/18/23 11/28/23 History mcg (5,000 unit) tablet (Vitamin D3) gabapentin 300 mg capsule 300 mg PO TID 06/18/23 11/28/23 History insulin glargine 100 unit/mL (3 6 unit subcut QAM 06/18/23 11/28/23 History mL) subcutaneous pen (Lantus Solostar U-100 Insulin) metformin 1,000 mg tablet 1,000 mg PO BID 06/18/23 11/28/23 History midodrine 2.5 mg tablet 2.5 mg PO TID 06/18/23 11/28/23 History potassium chloride 20 mEq 20 meq PO QAM 11/09/23 11/28/23 History tablet,extended release(part/cryst) Past Med/Surg History Medical History (Updated 11/28/23 @ 12:30 by Ney Murray MD) 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 GERD (gastroesophageal reflux disease) Diabetes mellitus, type 2 Cataract upcoming surgery for correction Low blood pressure On Midodrine Chronic obstructive pulmonary disease Surgical History History of esophagogastroduodenoscopy (EGD) History of colonoscopy History of tooth extraction Family History Other No family history of adverse response to anesthesia Social History Smoking Status: Current every day smoker Tobacco Type: Cigarettes Cigarettes Per Day: 1 pack a day; Second Hand Exposure: No; Do You Dip or Chew Tobacco: No; Hx Alcohol Use: No Hx Substance Use: No Preferred Language: Greenlandic Communication Ability: Effective Freight Brakeman Required: No Beliefs That Will Affect Care: None Current Living Situation: Family Current Living Situation Comment: Son Feels Safe at Home: Yes Assistive Devices: Cane and Walker Physical Exam Physical Exam: General: A&Ox3. NAD. Cooperative. HEENT: Atraumatic, normocephalic. Mucous membranes slightly dry. Vision and hearing grossly Pulm: CTAB A&P. -wheezes, -rales, -rhonchi. Symmetrical chest rise. No increased work of breathing. No respiratory distress. Cardiac: RRR, -mrg. Radial pulses intact and symmetrical. Abdominal: Trace suprapubic tenderness, otherwise nontender to light and deep palpation, nondistended, soft. BS present. No rebound tenderness. Results & Data Results & Data Vital Signs (Past 12 Hours) Vital Signs Temp Pulse Pulse Resp BP BP Pulse Ox 11/28/23 10:30 79 18 98/66 L 98 11/28/23 10:18 89 11/28/23 09:53 36.1 C L 97 H 16 83/60 L 98 O2 Del Method 11/28/23 10:30 Room Air 11/28/23 10:18 11/28/23 09:53 Room Air PG Care Time/CCT Total # of Minutes Spent Total Time Spent with Patient: Total time spent is greater than 50% in coordination of care (as documented) at patient's floor/unit and/or counseling patient: Coding Level of Care Code 14008 INT INP/OBS CARE MIN Diagnoses C. difficile colitis A04.72 Septic shock A41.9; R65.21 Acute kidney injury superimposed on CKD N17.9; N18.9 DM2 (diabetes mellitus, type 2) E11.9 Hypomagnesemia E83.42
[2023-11-28 12:19] LABS: Cdiff Toxin B Gene (2yr or >) Positive Cdiff Gene (Neg)
[2023-11-28 12:30] LABS: Adenovirus F 40/41 PCR Not Detected (NotDetected); Astrovirus PCR Not Detected (NotDetected); Campylobacter PCR Not Detected (NotDetected); Cryptosporidium PCR Not Detected (NotDetected); Cyclospora cayetanensis PCR Not Detected (NotDetected); Entamoeba histolytica PCR Not Detected (NotDetected); Enteroaggregative E.coli(EAEC) Not Detected (NotDetected); Enteropathogenic E.coli (EPEC) Not Detected (NotDetected); Enterotoxigenic E.coli (ETEC) Not Detected (NotDetected); Giardia lamblia PCR Not Detected (NotDetected); Norovirus GI/GII PCR Not Detected (NotDetected); Plesiomonas shigelloides PCR Not Detected (NotDetected); Rotavirus A PCR Not Detected (NotDetected); Salmonella PCR Not Detected (NotDetected); Sapovirus PCR Not Detected (NotDetected); Shiga-like Toxin E.coli (STEC) Not Detected (NotDetected); Shigella/Enteroinvasive E.coli Not Detected (NotDetected); Vibrio cholerae PCR Not Detected (NotDetected); Vibrio species PCR Not Detected (NotDetected); Yersinia enterocolitica PCR Not Detected (NotDetected)
[2023-11-28] MEDS ORDERED: ACETAMINOPHEN 325 MG TAB PO PRN (12:30)
[2023-11-28] MEDS ORDERED: POLYETHYLENE (MIRALAX) 17 GM PACK PO PRN (12:30)
[2023-11-28] MEDS ORDERED: DEXTROSE 50% 50 ML SYRINGE IV PRN (12:38)
[2023-11-28] MEDS ORDERED: GLUCOSE 40% GEL 15 GM TUBE PO PRN (12:38)
[2023-11-28] MEDS ORDERED: GLUCOSE 10 TAB/TUBE PO PRN (12:38)
[2023-11-28] MEDS ORDERED: GLUCAGON FOR INJ 1 MG VIAL SQ PRN (12:38)
[2023-11-28 13:12] LABS: Cdiff Antigen Positive
[2023-11-28 13:16] LABS: Cdiff Toxin A+B Positive Cdiff Toxin (Negative)
[2023-11-28] MEDS: Patient's HEIGHT &/or WEIGHT Needed STA (13:33)
[2023-11-28] MEDS: LACTATED RINGER'S 1,000 ML IV SCH (14:15)
[2023-11-28] MEDS: VANCOMYCIN HCL 1,500 MG in SODIUM CHLORIDE 0.9% 500 ML IV ONE (14:15)
--- OUTSIDE RECORDS SUMMARY | 2023-11-28 15:48 | External Medical Summary | Summary of Care ---
Author Name Unknown Organization [facility] Address [address] [place] [address] Phone [phone] Care Team Providers Care Senior Logistics Manager Name Role Phone Eve Soni MD Primary Care Provider [phone] Reason for Visit * Reason Onset Date Comments [facility]: Screening 11/13/2023 Encounter Details Date Type Department Care Team (Late st Contact Info) Description 11/13/2023 Telephone [facility], [facility] [address] [facility] JACK[place] Anthony [address] [facility], Nurse [facility] [address] [facility] [place] ANTHONY [address] [facility]: Screening Allergies No known active allergiesdocumented as of this encounter (statuses as of 11/13/2023) Medications Medication Sig Dispensed Refills Start Date End Date Status metFORMIN HCl 500 MG Oral Tablet (Glucophage) Take 1 Tablet by mouth 2 times a day with morning and evening meals. 0 Active glipiZIDE ER 2.5 MG Oral Tablet Extended Release 24 Hour (glipiZIDE XL) Take 1 Tablet by mouth in the morning. 0 Active Pioglitazone HCl 45 MG Oral Tablet (Actos) Take 1 Tablet by mouth in the morning. 0 Active Magnesium Oxide 400 MG Oral Tablet TAKE ONE TABLET BY MOUTH EVERY DAY 90 Tablet 0 02/25/2023 02/25/2024 Active Midodrine HCl 2.5 MG Oral Tablet (Proamatine) TAKE ONE TABLET BY MOUTH IN THE MORNING AND ONE TABLET AT LUNCHTIME 180 Tablet 0 02/25/2023 02/25/2024 Active Pantoprazole Sodium 40 MG Oral Tablet Delayed Release (Protonix) TAKE ONE TABLET BY MOUTH EVERY DAY ON EMPTY STOMACH 90 Tablet 0 02/25/2023 02/25/2024 Active Midodrine HCl 2.5 MG Oral Tablet (Proamatine) take one tablet by mouth three times per day 270 Tablet 0 05/27/2023 Active Midodrine HCl 2.5 MG Oral Tablet (Proamatine) Take 1 Tablet by mouth three times a day. 270 Tablet 0 06/03/2023 Active Midodrine HCl 2.5 MG Oral Tablet (Proamatine) take one tablet by mouth three times per day 270 Tablet 0 06/13/2023 Active documented as of this encounter (statuses as of 11/13/2023) Active Problems Problem Noted Date Diagnosed Date Visual distortions of shape and size 06/19/2023 documented as of this encounter (statuses as of 11/13/2023) Social History Tobacco Use Types Packs/Day Years Used Date Smoking Tobacco: Every Day Cigarettes 0.5 50 Comments:About 2 years ago c ut back to .5 pack. Has smoked as much as 1.5 packs. Average usage 1 pack. Alcohol Use Standard Drinks/Week Comments Not Currently 0 (1 standard drink = 0.6 oz pur e alcohol) occasionally Sex and Gender Information Value Date Recorded Sex Assigned at Not on file Gender Identity Not on file Sexual Orientation Not on file Job Start Date Occupation Industry Not on file Not on file Not on file documented as of this encounter Miscellaneous Notes * Telephone Encounter - Morenita Pena LPN - 11/13/2023 1:36 PM EST Randall Griffin was referred as a potential candidate for enrollment for [facility]. A review of this chart was completed and: Randall does not meet criteria for enrollment into [facility]. Referral Source: Monthly Proactive Eligibility List Criteria for Ineligibility: Not Located in Service Area Referring care team was notified via : [employer] communication Patient does live in [facility] service area Pt does not have 6 or more chronic complex medical conditions documented in this encounter Plan of Treatment Health Maintenance Due Date Last Done Comments Lipid Panel 1949 Pneumococcal Vaccine: 65+ Years (1 - PCV) 1955 Depression Screening 1961 Hepatitis C Screening 1967 DTaP,Tdap,and Td Vaccines (1 - Tdap) 01/14/1968 Cologuard 1994 Colonoscopy 1994 Colorectal Cancer Screening 1994 Fecal Occult Blood Test 1994 Sigmoidoscopy 1994 Zoster Vaccines (1 of 2) 1999 Hepatitis B (1 of 3 - Risk 3-dose series) 2009 AAA Screening 2014 COVID-19 Vaccine (4 - 2022-2 4 season) 2023 11/03/2021, 03/15/2021, 02/15/2021 Influenza Vaccine (FLU shot) (#1) 2023 LUNG CANCER SCREENING - USE SMARTSET 55997 Completed 03/04/2015 GARDASIL-HPV IMMUNIZATION SERIES Aged Out No longer eligible b ased on patient's age to complete this topic MENINGOCOCCAL (MENACTRA/MENVEO) Aged Out No longer eligible b ased on patient's age to complete this topic documented as of this encounter Medical Devices Not on filedocumented as of this encounter Care Teams Senior Logistics Manager Relationship Specialty Start Date End Date Eve Soni MD [address] [place] [address] [place]DISON [id number] PCP - General 05/31/09 documented as of this encounter
[2023-11-28] MEDS: POTASSIUM CHLORIDE / WTR 10 MEQ/100 ML PLCT IV SCH (16:02)
[2023-11-28] MEDS: MAGNESIUM SULFATE / D5W 1 GM/100 ML BAG IV ONE (16:02)
[2023-11-28] MEDS: MIDODRINE HCL 2.5 MG TAB PO SCH (16:03)
[2023-11-28] MEDS: HEPARIN SOD 5,000 UNIT/0.5 ML VIAL SQ SCH (16:03)
[2023-11-28 16:53] LABS: BUN Creatinine Ratio 10.9 (10-20); Calcium 6.8 mg/dl (8.6-10.3); Creatinine Clr Calc Pharmacy 42.7 ml/min; Magnesium 1.6 mg/dl (1.7-2.4); Potassium 3.7 mmol/L (3.5-5.1)
[2023-11-28] MEDS: INSULIN ASPART PER UNIT CHARGE SC SCH (17:44)
[2023-11-28] MEDS: CHERRY SYRUP 5 ML UDP PO SCH (18:31)
[2023-11-28] MEDS: VANCOMYCIN HCL 125 MG/2.5ML SOLN PO SCH (18:31)
[2023-11-28 19:14] LABS: Appearance Urine Clear (Clear); Bacteria Urine Automated Negative (Negative); Bilirubin Urine Negative (Negative); Blood Urine Negative (Negative); Color Urine Yellow; Epithelial Cell Urine Auto 20-30 /lpf (0-5); Glucose Urine UA Negative (Negative); Ketones Urine Negative (Negative); Leukocyte Esterase Urine 2+ (Negative); Nitrite Urine Negative (Negative); Protein Urine Negative (Negative); RBC Urine Automated 0-4 /hpf (0-4); Specific Gravity Urine 1.008 (1.000-1.030); Urobilinogen Urine Negative (Negative); WBC Urine Automated >30 /hpf (0-5); pH Urine 5.5 (4.5-7.5)
[2023-11-28] MEDS: MAGNESIUM OXIDE 400 MG TAB PO SCH (20:12)
[2023-11-28] MEDS: POTASSIUM CHLORIDE CRTAB 20 MEQ TABCR PO SCH (20:12)
[2023-11-29] MEDS: LACTATED RINGER'S 500 ML IV ONE ×2 (01:13→08:41)
--- NOTE | 2023-11-29 05:43 | Electrocardiogram Report ---
Test Reason : Blood Pressure : / mmHG Vent. Rate : 089 BPM Atrial Rate : 089 BPM P-R Int : 120 ms QRS Dur : 076 ms QT Int : 390 ms P-R-T Axes : 059 -35 075 degrees QTc Int : 476 ms Poor data quality, interpretation may be adversely affected Normal sinus rhythm Left axis deviation Poor R wave progression, consider anterior CO vs. lead placement vs. LVH Nonspecific T wave abnormality Abnormal ECG When compared with ECG of 09-NOV-2023 00:43, No significant change Confirmed by Christian Stevenson ([id number]) on 11/29/2023 5:43:02 AM Referred By: Confirmed By:Christian Stevenson
[2023-11-29] MEDS: MIDODRINE HCL 2.5 MG TAB PO SCH (08:39)
[2023-11-29 08:42] LABS: Basophils # (auto) 0.09 K/uL (0.00-0.20); Basophils % (auto) 0.8 %; Eosinophils # (auto) 0.24 K/uL (0.00-0.50); Eosinophils % (auto) 2.2 %; Hematocrit (blood only) 35.1 % (42.0-52.0); Hemoglobin 12.1 g/dl (14.0-18.0); Immature Granulocytes # (auto) 0.11 K/uL (0.01-0.20); Lymphocytes # (auto) 2.38 K/uL (1.20-3.40); Lymphocytes % (auto) 21.6 %; Mean Corpuscular Hemoglobin 30.8 pg (25.0-34.0); Mean Corpuscular Hgb Conc 34.5 g/dL (32.0-36.0); Mean Corpuscular Volume 89.3 fL (80.0-100.0); Mean Platelet Volume 9.1 fL (9.4-12.4); Monocytes % (auto) 9.1 %; Neutrophils # (auto) 7.19 K/uL (1.40-6.50); Neutrophils % (auto) 65.3 %; Platelet Count 316 K/uL (130-400); RDW Coefficient of Variation 12.6 % (11.5-14.5); RDW Standard Deviation 41.4 fL (36.4-46.3); Red Blood Count 3.93 M/uL (4.70-6.10); White Blood Count 11.01 K/ul (4.8-10.8)
[2023-11-29] MEDS: PANTOprazole 40 MG TAB PO SCH (08:46)
[2023-11-29] MEDS: LANTUS PER UNIT CHARGE SQ SCH (08:58)
[2023-11-29 09:13] LABS: Anion Gap 4 (3-11); BUN Creatinine Ratio 10.5 (10-20); Blood Urea Nitrogen 14 mg/dl (6-23); Calcium 7.2 mg/dl (8.6-10.3); Carbon Dioxide 24 mmol/L (21-32); Chloride 112 mmol/L (98-107); Creatinine Clr Calc Pharmacy 44.3 ml/min; Est GFR (African American) 60.6 ml/min; Est GFR (Non-African American) 52.3 ml/min; Glucose 79 mg/dl (70-99(Fasting)); Sodium 140 mmol/L (136-145)
--- NOTE | 2023-11-29 14:57 | Hospitalist Progress Note ---
Date of Service November 29, 2023 Assessment & Plan (1) C. difficile colitis: Plan: Recent hospital admission 11/09/2023 -11/11/2023 for urosepsis. Received 10 days of ertapenem at that time. Leukocytosis of 13 on admission. Improving, 11 today, 11/29/2023. Vancomycin every 6 hours continued (last dose on 12/08/2023). (2) Septic shock: Plan: Sepsis due to C. difficile colitis Continues to remain hypotensive. Increased midodrine to 5 mg 3 times daily. Preliminary blood cultures show no growth after 24 hours. (3) Acute kidney injury superimposed on CKD: Plan: Mild CARLO noted on admission. Resolved 11/29/2023. (4) DM2 (diabetes mellitus, type 2): Plan: Basal/bolus continued. Conservative SSI . Goal BSG [id number] Plan DVT prophylaxis: Heparin Disposition: Medical/surgical CODE STATUS: Full code Diet: DM Admission and Anticipated Discharge Date Admission Date: November 28, 2023 Subjective Patient seen and evaluated at bedside this morning. He reports to be tolerating the vancomycin well. He has had 3 bowel movements today. He states the consistency has been more formed stool, while still yellow in color. He denies any abdominal pain. He reports that he had some mild intermittent suprapubic pain earlier in the morning, however this is now resolved. Discussed patient going home versus rehab. His son thinks he would benefit from rehab, and patient is agreeable to this. Patient remains hypotensive throughout the day, but is asymptomatic. He states he has low blood pressure at home and this is within the normal range for him. He denies dizziness, lightheadedness, blurred vision, nausea, or vomiting. He states his appetite has returned to normal for him. Patient states his weakness has improved since yesterday, however he has not yet returned to his baseline strength. Physical Exam Physical Exam: General: A&Ox3. NAD. Cooperative. Abdominal: Hyperactive bowel sounds present. Nontender to light and deep palpation, nondistended, soft abdomen. No rebound tenderness or guarding. Extremities: Healing skin tear noted on left forearm with surrounding ecchymosis. Erythema noted on bilateral lower extremities. 1+ pitting edema on right lower extremity. 2+ pitting edema on left lower extremity. Pulm: CTAB A&P. No wheezing, rales, or rhonchi. Symmetrical chest rise. No increased work of breathing. No respiratory distress. Cardiac: RRR, no murmurs, rubs, or gallops. Radial pulses intact and symmetrical. Results & Data Results & Data Vital Signs (Past 12 Hours) Vital Signs Temp Pulse Resp BP Pulse Ox O2 Del Method 11/29/23 14:00 36.5 C 82 16 91/52 L 91 Room Air 11/29/23 11:33 36.4 C L 83 16 90/59 L 93 Room Air 11/29/23 10:21 36.5 C 85 14 92/56 L 93 Room Air 11/29/23 08:00 87 14 89/55 L 89 L Room Air 11/29/23 07:21 37.1 C 87 14 86/59 L 92 Room Air Laboratory Results Reviewed CBC Reviewed BMP
[2023-11-29] MEDS: CARBOHYDRATES FOR HYPOGLYCEMIA PO PRN (16:38)
[2023-11-30 06:19] LABS: Basophils # (auto) 0.11 K/uL (0.00-0.20); Basophils % (auto) 0.8 %; Eosinophils % (auto) 1.5 %; Hematocrit (blood only) 35.3 % (42.0-52.0); Hemoglobin 11.9 g/dl (14.0-18.0); Immature Granulocytes # (auto) 0.14 K/uL (0.01-0.20); Immature Granulocytes % (auto) 1.1 %; Lymphocytes # (auto) 2.68 K/uL (1.20-3.40); Lymphocytes % (auto) 20.7 %; Mean Corpuscular Hemoglobin 30.4 pg (25.0-34.0); Mean Corpuscular Hgb Conc 33.7 g/dL (32.0-36.0); Mean Corpuscular Volume 90.1 fL (80.0-100.0); Monocytes # (auto) 1.03 K/uL (0.11-0.59); Neutrophils # (auto) 8.79 K/uL (1.40-6.50); Neutrophils % (auto) 67.9 %; Platelet Count 307 K/uL (130-400); RDW Coefficient of Variation 12.9 % (11.5-14.5); RDW Standard Deviation 42.1 fL (36.4-46.3); Red Blood Count 3.92 M/uL (4.70-6.10); White Blood Count 12.95 K/ul (4.8-10.8)
[2023-11-30 06:32] LABS: BUN Creatinine Ratio 9.2 (10-20); Calcium 7.2 mg/dl (8.6-10.3); Creatinine Clr Calc Pharmacy 38.5 ml/min; Est GFR (African American) 51.2 ml/min; Est GFR (Non-African American) 44.1 ml/min; Potassium 4.7 mmol/L (3.5-5.1)
[2023-11-30] MEDS: CHOLESTYRAMINE LIGHT 4 GM PKT PO SCH (09:56)
--- NOTE | 2023-11-30 11:54 | Hospitalist Progress Note ---
Date of Service November 30, 2023 Assessment & Plan (1) C. difficile colitis: Plan: Recent hospital admission 11/09/2023 -11/11/2023 for sepsis from urinary source. Received 10 days of ertapenem at that time. Leukocytosis of 13 on admission. Improving, 11 today, 11/29/2023. Vancomycin every 6 hours continued (last dose on 12/08/2023). Cholestyramine ordered as adjunct of treatment for diarrhea. Butt paste ordered as barrier treatment for irritated buttocks, penis, and scrotum. (2) Septic shock: Plan: Sepsis due to C. difficile colitis Continues to remain hypotensive. Increased midodrine to 5 mg 3 times daily. Preliminary blood cultures show no growth after 48 hours. (3) Acute kidney injury superimposed on CKD: Plan: Mild CARLO noted on admission. Resolved 11/29/2023. 11/30/2023: BUN 14, creatinine 1.53, EGFR 44.1 PT has CKD3 (4) DM2 (diabetes mellitus, type 2): Plan: Basal/bolus continued. Conservative SSI . Goal BSG [id number] Plan DVT prophylaxis: Heparin Disposition: Medical/surgical CODE STATUS: Full code Diet: DM Admission and Anticipated Discharge Date Admission Date: November 28, 2023 Supervising Physician Co-Signing Physician Notes Patient was seen and examined independently I discussed the case with Myranda RODRIGUEZ I reviewed pertinent past medical social family history and also the plan of care and agree with the plan of care. Patient was seen eating his meal. He has improvement of his diarrhea. His left arm where he has his abrasions were also improving. He still is endorsing support for consideration of subacute rehab Examination shows heart to be regular lungs be clear wounds are healing as mentioned abdomen NABS soft and nontender Continue treatment for C. difficile colitis with rehab evaluations for subacute rehab Any exceptions will be noted below Subjective Patient seen and evaluated bedside this morning. He continues to struggle with diarrhea. He denies any abdominal pain. He reports the suprapubic pain from yesterday has resolved. Patient reports he has a good appetite, however he feels more fatigued today. He says this is from getting poor rest while in the hospital. He has increased irritation around his buttocks, penis, and scrotum from the diarrheal episodes. He denies weakness, headaches, blurry vision, nausea, vomiting, urinary symptoms, shortness of breath, or chest pain. Physical Exam Physical Exam: General: A&Ox3. NAD. Cooperative. Abdominal: Hyperactive bowel sounds present. Nontender to light and deep palpation, nondistended, soft abdomen. No rebound tenderness or guarding. Extremities: Healing skin tear noted on left forearm with surrounding ecchymosis. Erythema noted on bilateral lower extremities. 1+ pitting edema on right lower extremity. 2+ pitting edema on left lower extremity. Pulm: CTAB A&P. No wheezing, rales, or rhonchi. Symmetrical chest rise. No increased work of breathing. No respiratory distress. Cardiac: RRR, no murmurs, rubs, or gallops. Radial pulses intact and symmetrical. Results & Data Results & Data Vital Signs (Past 12 Hours) Vital Signs Temp Pulse Resp BP Pulse Ox O2 Del Method 11/30/23 10:51 36.4 C L 85 14 96/59 L 92 Room Air 11/30/23 07:09 36.5 C 80 16 93/58 L 93 Room Air Laboratory Results Reviewed CBC Reviewed BMP
[2023-11-30] MEDS ORDERED: ZINC OXIDE 16% 45 APPLN, HYDROCORTISONE 1% 45 APPLN, ALUMINUM/MAGNESIUM SUSP 15 ML, BAR... TOP PRN (12:01)
[2023-12-01] MEDS: ZINC OXIDE 16% 45 APPLN, HYDROCORTISONE 1% 45 APPLN, ALUMINUM/MAGNESIUM SUSP 15 ML, BAR... TOP PRN (05:24)
[2023-12-01 06:49] LABS: Basophils # (auto) 0.07 K/uL (0.00-0.20); Basophils % (auto) 0.8 %; Eosinophils # (auto) 0.26 K/uL (0.00-0.50); Eosinophils % (auto) 2.9 %; Hematocrit (blood only) 33.3 % (42.0-52.0); Hemoglobin 11.5 g/dl (14.0-18.0); Immature Granulocytes # (auto) 0.12 K/uL (0.01-0.20); Immature Granulocytes % (auto) 1.3 %; Lymphocytes # (auto) 2.59 K/uL (1.20-3.40); Lymphocytes % (auto) 28.7 %; Mean Corpuscular Hemoglobin 30.6 pg (25.0-34.0); Mean Corpuscular Hgb Conc 34.5 g/dL (32.0-36.0); Mean Corpuscular Volume 88.6 fL (80.0-100.0); Mean Platelet Volume 8.9 fL (9.4-12.4); Monocytes # (auto) 0.63 K/uL (0.11-0.59); Neutrophils # (auto) 5.36 K/uL (1.40-6.50); Neutrophils % (auto) 59.3 %; Platelet Count 276 K/uL (130-400); RDW Coefficient of Variation 12.5 % (11.5-14.5); RDW Standard Deviation 40.9 fL (36.4-46.3); Red Blood Count 3.76 M/uL (4.70-6.10); White Blood Count 9.03 K/ul (4.8-10.8)
[2023-12-01 07:13] LABS: Calcium 7.2 mg/dl (8.6-10.3); Est GFR (African American) 60.1 ml/min; Est GFR (Non-African American) 51.8 ml/min; Potassium 4.2 mmol/L (3.5-5.1)
--- NOTE | 2023-12-01 12:28 | Hospitalist Progress Note ---
Date of Service December 01, 2023 Assessment & Plan (1) C. difficile colitis: Plan: Recent hospital admission 11/09/2023 -11/11/2023 for sepsis from urinary source. Received 10 days of ertapenem at that time. Leukocytosis of 13 on admission. Resolved on 12/01/2023. Vancomycin every 6 hours continued (last dose on 12/08/2023). Cholestyramine ordered as adjunct of treatment for diarrhea. Improved frequency of bowel movements. Butt paste ordered as barrier treatment for irritated buttocks, penis, and scrotum. Improved irritation of affected areas. Ordered urine analysisresults pending. (2) Septic shock: Plan: Sepsis due to C. difficile colitis Continues to remain hypotensive. Increased midodrine to 5 mg 3 times daily. Preliminary blood cultures show no growth after 48 hours. (3) Acute kidney injury superimposed on CKD: Plan: Mild CARLO noted on admission. Resolved 11/29/2023. PT has CKD3 (4) DM2 (diabetes mellitus, type 2): Plan: Basal/bolus continued. Conservative SSI . Goal BSG [id number] Plan DVT prophylaxis: Heparin CODE STATUS: Full code Admission and Anticipated Discharge Date Admission Date: November 28, 2023 Subjective Patient seen and evaluated at bedside. He reports an improvement in the frequency of his bowel movements since yesterday. He says his stool is soft, more formed, and brown in color. He denies any abdominal pain and reports his fatigue has improved since yesterday. He states the Butt paste has significantly improved to the irritation around his buttocks, penis, and scrotum from the diarrheal episodes. Per his nurse, while the irritation has improved, there are still ulcerated areas around the buttocks. He was incontinent with urine last night and this morning. His stool incontinence has improved and he had a BM on the bedside commode this morning. Reports intermittent burning with urination. Urinalysis ordered to determine if patient has urinary tract infection secondary to C. difficile. He denies weakness, headaches, blurry vision, nausea, vomiting, shortness of breath, or chest pain. Physical Exam Physical Exam: General: A&Ox3. NAD. Cooperative. Abdominal: Normoactive bowel sounds present. Nontender to light and deep palpation, nondistended, soft abdomen. No rebound tenderness or guarding. Extremities: Healing skin tear noted on left forearm with surrounding ecchymosis - improving. Erythema and scaling noted on bilateral lower extremities. 1+ pitting edema on right lower extremity. 1+ pitting edema on left lower extremity. Pulm: CTAB A&P. No wheezing, rales, or rhonchi. Symmetrical chest rise. No increased work of breathing. No respiratory distress. Cardiac: RRR, no murmurs, rubs, or gallops. Radial pulses intact and symmetrical. Results & Data Results & Data Vital Signs (Past 12 Hours) Vital Signs Temp Pulse Resp BP BP Pulse Ox O2 Del Method 12/01/23 09:09 99/62 L 93 Room Air 12/01/23 07:07 36.5 C 75 16 96/60 L 90 Room Air Laboratory Results Reviewed CBC Reviewed BMP Ordered urinalysis
[2023-12-02 03:14] LABS: Appearance Urine Clear (Clear); Bacteria Urine Automated Negative (Negative); Bilirubin Urine Negative (Negative); Blood Urine Negative (Negative); Cast Urine Automated 0 /lpf (0-5); Color Urine Yellow; Epithelial Cell Urine Auto >30 /lpf (0-5); Glucose Urine UA Negative (Negative); Ketones Urine Negative (Negative); Leukocyte Esterase Urine 3+ (Negative); Nitrite Urine Negative (Negative); Protein Urine Negative (Negative); RBC Urine Automated 0-4 /hpf (0-4); Specific Gravity Urine 1.007 (1.000-1.030); Urobilinogen Urine Negative (Negative); WBC Urine Automated >30 /hpf (0-5)
[2023-12-02 03:22] LABS: Renal Epithelial Cells Urine 0-5 /lpf (0-5)
[2023-12-02 06:56] LABS: Hematocrit (blood only) 33.4 % (42.0-52.0); Hemoglobin 11.4 g/dl (14.0-18.0); Mean Corpuscular Hemoglobin 30.9 pg (25.0-34.0); Mean Corpuscular Hgb Conc 34.1 g/dL (32.0-36.0); Mean Corpuscular Volume 90.5 fL (80.0-100.0); Mean Platelet Volume 8.8 fL (9.4-12.4); Platelet Count 277 K/uL (130-400); RDW Coefficient of Variation 13.1 % (11.5-14.5); RDW Standard Deviation 43.3 fL (36.4-46.3); Red Blood Count 3.69 M/uL (4.70-6.10); White Blood Count 7.87 K/ul (4.8-10.8)
[2023-12-02 07:13] LABS: BUN Creatinine Ratio 9.4 (10-20); Calcium 7.3 mg/dl (8.6-10.3); Creatinine Clr Calc Pharmacy 46.4 ml/min; Est GFR (African American) 64.1 ml/min; Est GFR (Non-African American) 55.3 ml/min; Potassium 4.2 mmol/L (3.5-5.1)
--- NOTE | 2023-12-02 08:18 | Hospitalist Progress Note ---
Date of Service December 02, 2023 Assessment & Plan (1) C. difficile colitis: Plan: Recent hospital admission 11/09/2023 -11/11/2023 for sepsis from urinary source. Received 10 days of ertapenem at that time. Leukocytosis of 13 on admission. Resolved on 12/01/2023. Vancomycin every 6 hours continued (last dose on 12/08/2023). Cholestyramine ordered as adjunct of treatment for diarrhea. Improved frequency of bowel movements. Butt paste ordered as barrier treatment for irritated buttocks, penis, and scrotum. Improved irritation of affected areas. Ordered urine analysis -- results not convincing for UTI, urine culture pending. Considered Pyridium for symptomatic relief, however will avoid use due to patient's CrCl being <50. (2) Septic shock: Plan: Sepsis due to C. difficile colitis Continues to remain hypotensive. Increased midodrine to 5 mg 3 times daily. Preliminary blood cultures show no growth after 48 hours. (3) Acute kidney injury superimposed on CKD: Plan: Mild CARLO noted on admission. Resolved 11/29/2023. PT has CKD3 (4) DM2 (diabetes mellitus, type 2): Plan: Basal/bolus continued. Conservative SSI . Goal BSG [id number] Plan DVT prophylaxis: Heparin CODE STATUS: Full code Admission and Anticipated Discharge Date Admission Date: November 28, 2023 Subjective Patient seen and evaluated at bedside this morning. He reports continued improvement in the frequency of his bowel movements, and says his stool is more formed and brown in color. He reports the irritation around his buttocks continues to improve. He states he no longer has dysuria. Urinalysis was not convincing for UTI; urine culture still pending. Patient denies abdominal pain, urinary symptoms, weakness, headaches, blurry vision, nausea, vomiting, shortness of breath, or chest pain. He is still agreeable to subacute rehab placement, and should be discharged to [facility] tomorrow. Physical Exam Physical Exam: General: A&Ox3. NAD. Cooperative. Abdominal: Normoactive bowel sounds present. Nontender to light and deep palpation, nondistended, soft abdomen. No rebound tenderness or guarding. Extremities: Healing skin tear noted on left forearm with surrounding ecchymosis - improving. Erythema and scaling noted on bilateral lower extremities. 1+ pitting edema on lower extremities bilaterally. Pulm: CTAB A&P. No increased work of breathing. No respiratory distress. Cardiac: RRR, no murmurs, rubs, or gallops. Radial pulses intact and symmetrical. Results & Data Results & Data Vital Signs (Past 12 Hours) Vital Signs Temp Pulse Pulse Resp BP Pulse Ox O2 Del Method 12/02/23 07:55 36.4 C L 64 16 102/61 91 Room Air 12/01/23 21:35 36.4 C L 77 20 96/59 L 95 Room Air Laboratory Results Reviewed CBC Reviewed BMP Reviewed UA
[2023-12-03 06:15] LABS: Hematocrit (blood only) 31.3 % (42.0-52.0); Hemoglobin 10.6 g/dl (14.0-18.0); Mean Corpuscular Hemoglobin 30.2 pg (25.0-34.0); Mean Corpuscular Hgb Conc 33.9 g/dL (32.0-36.0); Mean Corpuscular Volume 89.2 fL (80.0-100.0); Platelet Count 270 K/uL (130-400); RDW Coefficient of Variation 13.2 % (11.5-14.5); RDW Standard Deviation 43.1 fL (36.4-46.3); Red Blood Count 3.51 M/uL (4.70-6.10); White Blood Count 7.44 K/ul (4.8-10.8)
[2023-12-03 06:45] LABS: BUN Creatinine Ratio 11.1 (10-20); Calcium 7.3 mg/dl (8.6-10.3); Creatinine Clr Calc Pharmacy 43.7 ml/min; Est GFR (African American) 59.5 ml/min; Est GFR (Non-African American) 51.4 ml/min; Potassium 3.8 mmol/L (3.5-5.1)
--- NOTE | 2023-12-03 18:06 | Discharge Summary ---
Date of Service December 03, 2023 Admission HPI Per Admitting Provider Randall Griffin is a 73yo M who has past medical history of DM 2, GERD, esophageal candidiasis, urethral stricture who presents Weakness after being hospitalized 2 weeks prior for urosepsis and who in the last 1 to 2 weeks has had constant diarrhea, weakness, and fatigue and he was found to have leukocytosis and elevated lactate on admission. Randall is seen at the bedside. He reports he completed antibiotics for u rosepsis and his symptoms resolved but shortly after returning home developed diarrhea which is progressed to 812 times per day, is generally completely liquid and foul-smelling. Has had a poor appetite although no nausea or vomiting. No GI bleeding. Reports is gradually felt weaker and more fatigued. Denies abdominal pain, although notes he has done some low midline discomfort which is improved at time of admitting assessment. Feels improved following initial IV fluids. Denies past history of C. difficile. No chest pain, chest pressure, shortness of breath. Denies fevers and chills but notes he was cold earlier, feels improved at time of admitting assessment. Denies shaking chills/rigor Medical History: Reviewed Medications: Reviewed Surgical History: Reviewed Family history: Reviewed Allergies: Reviewed Social History: Reviewed Code Status: Reviewed Principal Diagnosis C. difficile colitis Sepsis secondary to C. difficile colitis Diabetes type 2 Hypotension Discharge Exam General: A&Ox3. NAD. Cooperative. Abdominal: Normoactive bowel sounds present. Nontender to light and deep palpation, nondistended, soft abdomen. No rebound tenderness or guarding. Extremities: Healing skin tear noted on left forearm with surrounding ecchymosis - improving. Erythema and scaling noted on bilateral lower extremities. 1+ pitting edema on lower extremities bilaterally. Pulm: CTAB A&P. No increased work of breathing. No respiratory distress. Cardiac: RRR, no murmurs, rubs, or gallops. Radial pulses intact and symmetrical. Discharge Data Allergies Allergy/AdvReac Type Severity Reaction Status Date / Time No Known Allergies Allergy Verified 11/09/23 01:33 Consultations 11/28/23 12:22 ED Decision to Admit Stat Hospital Course (1) C. difficile colitis: Recent hospital admission 11/09/2023 -11/11/2023 for sepsis from urinary source. Received 10 days of ertapenem at that time. Leukocytosis of 13 on admission. Resolved on 12/01/2023. Vancomycin every 6 hours continued (last dose on 12/08/2023). Cholestyramine ordered as adjunct of treatment for diarrhea. Improved frequency of bowel movements. Butt paste used as barrier treatment for irritated buttocks, penis, and scrotum. Improved irritation of affected areas. Urine analysis -- urine culture negative. Considered Pyridium for symptomatic relief, however will avoid use due to patient's CrCl being <50. Recommend multivitamin with iron and recheck CBC in 1 week. (2) Septic shock: Sepsis due to C. difficile colitis Blood cultures show no growth after 48 hours. Due to consistent hypotension, increased midodrine to 5 mg 3 times daily. This dose was continued on discharge. (3) Acute kidney injury superimposed on CKD: Mild CARLO noted on admission. Resolved 11/29/2023. PT has CKD3 (4) DM2 (diabetes mellitus, type 2): Goal BSG 153014 While in the hospital, blood sugars were consistently low and patient required very little insulin while admitted. On discharge, discontinued Lantus and NovoLog. Metformin should be enough in managing patient's blood sugar. Follow-up and monitor with PCP. Plan DVT prophylaxis: Heparin CODE STATUS: Full code Total Time Total Time Spent Total Time Spent (In Minutes): Greater than 30 minutes spent completing this discharge process including direct patient care, medication reconciliation, documentation, review of labs and images, and coordination of care. Discharge Plan Discharge Items Patient Disposition: Transfer Halfway Fac Reason For Visit: C-DIFF Discharge Diagnosis: C. difficile colitis Activity: Resume your previous activity Non-emergency contact: Primary Care Provider Call non-emergency contact if: your symptoms worsen Follow-up/Referrals: Jennifer Soni [Primary Care Provider] - Diet: Carb Consistent or DM2 Addtl Attending Provider Instructions: You were admitted to the hospital for C. difficile colitis (C. diff). This was most likely due to your recent antibiotic course for the blood infection from the urinary infection. You were treated for the C. diff infection with an antibiotic called vancomycin, which you will continue until 12/08/2023. You are being discharged home from the hospital because you are clinically well, but you are still on antibiotic treatment for your C. difficile infection. It is important to complete the course of antibiotics. While you are in the hospital, your blood pressure was consistently low. Because of this, your midodrine was increased to 5 mg 3 times daily. You can continue this dosage and frequency when you are discharged from the hospital. Additionally, your blood sugars were consistently low and you required very l ittle insulin while you were here. Therefore, we have stopped your Lantus (insulin glargine) and Novolog (insulin aspart). I believe the metformin will suffice in managing your blood sugar. You can follow-up with your PCP on the continued management of your diabetes. Things you need to know: -There is a 20 to 30% chance that the C. difficile infection and the associated diarrhea may return. -C. difficile produces 4 seconds of breath for several weeks in the environment on any surface. -Supports can be spread by the hands and infect other people by entering the body through the mouth. -People in the following groups are more at risk for developing C. difficile: Over 65 years old, taking (or who have recently taken) antibiotics or other medication altering the normal bacteria in the gut, people with generally reduced resistance to infection, people are spent a long time in a healthcare setting, fever with serious underlying illness, and people who have had bowel surgery. It is always important for everyone to wash their hands frequently with soap and water. 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 difficile. Your eating patterns does not need to change, just continue with your normal healthy diet. Maintain good hand hygiene, that is washing her hands with soap and water after going to the toilet, and before preparing and eating food. He can return to work once you have been free from diarrhea for 48 hours. If you need antibiotics for any other illness, ensure that your PCP noticed that you have had a C. difficile infection. You should be aware that sometimes people suffer a relapse (this is when the diarrhea returns). A very small number of people suffer multiple relapses-further treatments can be discussed with your doctor if this turns out to be the case. Important things to remember should the diarrhea recur at home: - Contact your PCP immediately and ensure that they are aware that you have previously been diagnosed as having his C. difficile infection. - Do not take any medications to stop the diarrhea (antidiarrheals) while you are suffering from C. difficile. - Wash your hands frequently with soap and water. - Use liquid pump soap dispenser as a bar of soap can harbor germs. - To clean surfaces that may have been contaminated with spores, wear disposable gloves, use household bleach and a disposable cloth, e.g. paper towels. Clean surfaces, particularly the toilet bowl, toilet seat and toilet flush handle, sinks and taps. Soiled items should be kept separate from the rest of the household washing and washed at 60 C. Take care not to overload the machine so the water can circulate freely, as this will help rinse with the germs. Remember to wash her hands after handling soiled items. If you use incontinence pads, contact your local authority waste disposal department for advice. They should not be put out for domestic rubbish collection. To protect yourself and others from getting infected, it is important to bear in mind that bacteria or germs can be left on 1 surface and then moved to another. The most common way of transferring bacteria is on the hands. This is why it is so important to wash her hands as often as possible to break the chain of infection. 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 Pending Studies at Discharge: No Stand-Alone Forms: My [employer], Smoking Cessation Skilled Items Patient informed of condition?: Yes DNR: No Discharge Level of Care: Acute rehab Communicable Disease: Yes Discharge Prognosis: Improving Lines: None Urinary Catheter: No Medications and DC Order Prescriptions: New vancomycin 125 mg capsule 125 mg PO Q6H Qty: 19 0RF Continued potassium chloride 20 mEq tablet,ER particles/crystals 20 meq PO QAM magnesium oxide 400 mg (241.3 mg magnesium) tablet 400 mg PO BID pantoprazole 40 mg tablet,delayed release (DR/EC) 40 mg PO QAM metformin 1,000 mg Tablet 1,000 mg PO BID gabapentin 300 mg Capsule 300 mg PO TID cholecalciferol (vitamin D3) [Vitamin D3] 125 mcg (5,000 unit) Tablet 125 mcg PO QAM Changed midodrine 2.5 mg tablet 5 mg PO TID 30 Days Qty: 90 0RF Discontinued insulin aspart U-100 [Novolog FlexPen U-100 Insulin] 100 unit/mL (3 mL) insulin pen 0 sliding scale dose SUBCUT TID Patient Comments: per sliding scale insulin glargine [Lantus Solostar U-100 Insulin] 100 unit/mL (3 mL) insulin pen 6 unit SUBCUT QAM Discharge Orders: Discharge Order (Routine); Ordered 12/03/23 Ordered By: Myranda Baldwin Admission Data Admit Date/Time: 11/28/23 12:31 Attending Provider: Medhat Ivan Admit Provider: Ney Murray Primary Care Provider: Jennifer Soni Other Providers: Ney Murray; [place]; [facility]; [facility], Other Interventions: Discharge Summary Assessment (RN) Last Done: 12/03/23 10:13 Coding Level of Care Code 30464 INP/OBS DISCH >30 MIN Diagnoses C. difficile colitis A04.72 Septic shock A41.9; R65.21 Acute kidney injury superimposed on CKD N17.9; N18.9 DM2 (diabetes mellitus, type 2) E11.9
== END 2023-12-03 11:39 | DRG 871 ==
LOC: ED 09:49 → 3E 12:31 → SUATTDRO 12:31 → 3E 13:55
DX: E83.42 Hypomagnesemia; A04.72 Enterocolitis due to Clostridium difficile, not specified as recurrent; E11.22 Type 2 diabetes mellitus with diabetic chronic kidney disease; N17.9 Acute kidney failure, unspecified; Z79.4 Long term (current) use of insulin; A41.89 Other specified sepsis; F17.210 Nicotine dependence, cigarettes, uncomplicated; K21.9 Gastro-esophageal reflux disease without esophagitis; J44.9 Chronic obstructive pulmonary disease, unspecified; R65.21 Severe sepsis with septic shock; N18.30 Chronic kidney disease, stage 3 unspecified

== ENCOUNTER 2024-02-21 16:54 | Inpatient (IN) ==
--- NOTE | 2024-02-21 16:57 | Emergency Department Note ---
Impression & Plan Acute UTI, Acute dehydration, Cellulitis, Hypothermia ED Provider Note NAME: JENSEN CHAPMAN AGE: 74 SEX: M : 1950 ARRIVES VIA: Ambulance INFORMANT: Patient, nursing report ED PROVIDER(S): Ata Alvarez MD CHIEF COMPLAINT: Fall, weakness, increased confusion MEDICAL DECISION MAKING: Patient presented due to concern for weakness fatigue possible fall with unknown downtime. IV was established and blood work was obtained. CT head cervical spine obtained along with left hand and chest. Patient's blood work shows a normal white count hemoglobin of 13. Patient was ordered empiric Rocephin blood cultures and IV fluids as well as procalcitonin lactate. Patient did have a Angeles catheter placed with temperature sensor which showed the patient was hypothermic. The patient did receive blankets and bear hugger. The patient does have signs of cellulitis in his right lower extremity. Also concerns that the patient may have a UTI. Patient's creatinine 1.25. Lactate of 2.2. Troponin is not elevated. TSH is high but free T4 is normal. Urinalysis shows leuks whites but no bacteria. Patient's chest x-ray does not show evidence of obvious pneumonia. Left hand x-ray without evidence of fracture. X-ray of the hips are negative. Patient CT head and cervical spine also negative. Patient was ordered additional IV fluids. I did speak the on-call hospitalist service Dr. Luna the patient was admitted to the medicine service. Discussion w/ other healthcare providers: Dr. Luna inpatient medicine service Prior /Outside records reviewed: None Differential diagnosis: Fracture, dislocation, contusion, strain, sprain, ICH, hemothorax, intra- abdominal injury, anemia among other causes were considered. Diagnostics, as interpreted by me: ECG: Normal sinus rhythm, rate of 76, normal intervals, left axis deviation, no ST elevations T wave inversion in V2 and flattening in aVL. No significant change from November 28, 2023 Cardiac monitoring: An order was placed for continuous cardiac monitoring. The monitor shows a rate of 75 with sinus rhythm. Patient was placed on pulse oximetry Medical decision rules: None Imaging studies: I informally interpreted the patient's left hand x-ray without obvious fracture dislocation with formal report to follow. Interpreted the patient's chest x-ray which does not show obvious pneumonia or pneumothorax with formal report to follow. HPI: Patient presents from home due to concern for possible fall although unwitnessed and unknown downtime. Patient states he does not remember the fall but does not complain of significant pain. Patient denies any chest pains or shortness of breath no abdominal pain or nausea vomiting. Patient does have some skin tears noted to the left upper extremity does complain of some left hand pain. Patient does live with his son but does not really last time that he saw him. Patient reportedly does have a history of memory issues/dementia but may be a bit worse from his baseline confusion per EMS and nursing. Patient's BSG was 2 8 prior to arrival. PAST MEDICAL HISTORY: See Below PAST SURGICAL HISTORY: See Below SOCIAL HISTORY: See Below HOME MEDICATIONS: See Below ALLERGIES: See Below VITALS: See Below PHYSICAL EXAMINATION: GENERAL: NAD, non-toxic. EYE EXAM: Normal conjunctiva. PERRL, no anisocoria and EOM's grossly intact w/o pain. OROPHARYNX: Dry mucous membranes, edentulous. NECK: Trachea midline, no stridor. LUNGS: Clear to auscultation. Normal chest wall mechanics. HEART: NSR, no MRG. ABDOMEN: Abdomen soft, non-tender, no masses, no rebound or guarding. BACK: No CVA TTP. SKIN: No rashes and no bruising. UPPER EXTREMITIES: Upper extremities are grossly normal. Skin tears noted to the left upper extremity with mild pain and bruising of the dorsum of the left hand. No obvious deformity. LOWER EXTREMITIES: Grossly normal, no edema. Right lower extremity redness, no significant calor. Feces caked on the bilateral lower extremities. No crepitus. NEURO EXAM: Awake alert follows commands oriented to person and birthdate and place, cranial nerves II-XII grossly intact, normal speech, moves all 4 extremities. Past Med/Surg History Medical History Hypomagnesemia Septic shock Hypomagnesemia Acute kidney injury superimposed on CKD Sepsis due to urinary tract infection Metabolic encephalopathy 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 GERD (gastroesophageal reflux disease) Diabetes mellitus, type 2 Cataract upcoming surgery for correction Low blood pressure On Midodrine Chronic obstructive pulmonary disease Surgical History History of esophagogastroduodenoscopy (EGD) History of colonoscopy History of tooth extraction Family History Other No family history of adverse response to anesthesia Social History Smoking Status: Current every day smoker Tobacco Type: Cigarettes Cigarettes Per Day: 10; Second Hand Exposure: No; Do You Dip or Chew Tobacco: No; Tobacco Cessation Education Requested by Patient: No Hx Alcohol Use: No Hx Substance Use: No Preferred Language: Belarusian Communication Ability: Effective 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 Beliefs That Will Affect Care: None Current Living Situation: Family Current Living Situation Comment: lives with son Russ Other Information That Helps Us Care for You: No Feels Safe at Home: Yes Safety Concerns: Feels Safe At This Time Assistive Devices: Cane and Walker Allergies Allergies Allergy/AdvReac Type Severity Reaction Status Date / Time No Known Allergies Allergy Verified 02/21/24 19:04 Home Meds Home Medications Medication Instructions Recorded Confirmed magnesium oxide 400 mg (241.3 mg 400 mg PO AMHS 04/05/23 02/21/24 magnesium) tablet cholecalciferol (vitamin D3) 125 125 mcg PO HS 06/18/23 02/21/24 mcg (5,000 unit) tablet (Vitamin D3) gabapentin 300 mg capsule 300 mg PO TID 06/18/23 02/21/24 metformin 1,000 mg tablet 1,000 mg PO QPM 06/18/23 02/21/24 potassium chloride 20 mEq 20 meq PO QAM 11/09/23 02/21/24 tablet,extended release(part/cryst) insulin aspart U-100 100 unit/mL 1 sliding scale dose subcut AC 02/21/24 02/21/24 (3 mL) subcutaneous pen (Novolog FlexPen U-100 Insulin aspart) insulin glargine 100 unit/mL (3 6 unit subcut QAM 02/21/24 02/21/24 mL) subcutaneous pen (Lantus Solostar U-100 Insulin) midodrine 2.5 mg tablet 2.5 mg PO TID 02/21/24 02/21/24 pantoprazole 20 mg tablet,delayed 20 mg PO QAM 02/21/24 02/21/24 release Results & Data (ED) Vital Signs Vital Signs - 24 hr 02/21/24 16:31 02/21/24 17:00 02/21/24 17:01 Temperature Temperature Source Pulse Rate 69 Pulse Rate from SpO2 Sensor 70 Respiratory Rate 20 Blood Pressure 102/62 Blood Pressure Mean 75 Pulse Oximetry 96 95 Oxygen Delivery Method Room Air Sepsis Recent Fever Within 48 Hours Sepsis New/Unexplained Change in Mental Status Sepsis Action Taken by Nursing 02/21/24 17:26 02/21/24 17:30 02/21/24 17:31 Temperature Temperature Source Pulse Rate 69 68 68 Pulse Rate from SpO2 Sensor Respiratory Rate 20 19 Blood Pressure Blood Pressure Mean Pulse Oximetry Oxygen Delivery Method Sepsis Recent Fever Within 48 Hours Sepsis New/Unexplained Change in Mental Status Sepsis Action Taken by Nursing 02/21/24 17:33 02/21/24 17:45 02/21/24 18:00 Temperature 34.6 C L 34.6 C L 34.4 C L Temperature Source Angeles Cath ( Temp Sensing) Pulse Rate 73 73 76 Pulse Rate from SpO2 Sensor 72 77 Respiratory Rate 12 13 12 Blood Pressure 102/62 Blood Pressure Mean 75 Pulse Oximetry 96 94 92 Oxygen Delivery Method Room Air Sepsis Recent Fever Within 48 Hours No Sepsis New/Unexplained Change in Mental Status Yes Sepsis Action Taken by Nursing Physician Notified 02/21/24 18:15 02/21/24 19:01 02/21/24 19:02 Temperature 34.1 C L 34.3 C L Temperature Source Pulse Rate 80 71 Pulse Rate from SpO2 Sensor 80 72 Respiratory Rate 14 12 Blood Pressure 112/72 Blood Pressure Mean 79 Pulse Oximetry 94 93 Oxygen Delivery Method Sepsis Recent Fever Within 48 Hours Sepsis New/Unexplained Change in Mental Status Sepsis Action Taken by Nursing 02/21/24 19:02 02/21/24 19:15 02/21/24 19:30 Temperature 34.4 C L 34.4 C L 34.4 C L Temperature Source Pulse Rate 74 66 68 Pulse Rate from SpO2 Sensor 74 67 70 Respiratory Rate 12 17 12 Blood Pressure 112/72 Blood Pressure Mean 85 Pulse Oximetry 93 93 93 Oxygen Delivery Method Sepsis Recent Fever Within 48 Hours Sepsis New/Unexplained Change in Mental Status Sepsis Action Taken by Nursing 02/21/24 19:30 02/21/24 19:45 02/21/24 20:00 Temperature 34.3 C L 34.4 C L Temperature Source Pulse Rate 78 75 Pulse Rate from SpO2 Sensor Respiratory Rate 17 16 Blood Pressure 100/67 Blood Pressure Mean 74 Pulse Oximetry Oxygen Delivery Method Sepsis Recent Fever Within 48 Hours Sepsis New/Unexplained Change in Mental Status Sepsis Action Taken by Nursing 02/21/24 20:00 Temperature Temperature Source Pulse Rate Pulse Rate from SpO2 Sensor Respiratory Rate Blood Pressure 95/68 L Blood Pressure Mean 82 Pulse Oximetry Oxygen Delivery Method Sepsis Recent Fever Within 48 Hours Sepsis New/Unexplained Change in Mental Status Sepsis Action Taken by [facility] Medications Current Medication List: was personally reviewed by me Laboratory Data Attestation: I reviewed the patient's lab results. 02/22/24 05:57 02/22/24 05:57 Lab Results 02/21/24 02/21/24 Range/Units 17:34 17:56 WBC 8.80 (4.8-10.8) K/ul RBC 4.17 L (4.70-6.10) M/uL Hgb 13.0 L (14.0-18.0) g/dl Hct 38.3 L (42.0-52.0) % MCV 91.8 (80.0-100.0) fL MCH 31.2 (25.0-34.0) pg MCHC 33.9 (32.0-36.0) g/dL RDW Std Deviation 43.8 (36.4-46.3) fL RDW Coeff of Cassia 13.0 (11.5-14.5) % Plt Count 276 (130-400) K/uL MPV 8.5 L (9.4-12.4) fL Immature Gran % (Auto) 1.4 % Neut % (Auto) 62.6 % Lymph % (Auto) 24.4 % [facility] % (Auto) 6.7 % Eos % (Auto) 4.2 % Baso % (Auto) 0.7 % Neut # (Auto) 5.51 (1.40-6.50) K/uL Lymph # (Auto) 2.15 (1.20-3.40) K/uL [facility] # (Auto) 0.59 (0.11-0.59) K/uL Eos # (Auto) 0.37 (0.00-0.50) K/uL Baso # (Auto) 0.06 (0.00-0.20) K/uL Immature Gran # (Auto) 0.12 (0.01-0.20) K/uL Sodium 135 L (136-145) mmol/L Potassium 3.7 (3.5-5.1) mmol/L Chloride 104 (98-107) mmol/L Carbon Dioxide 25 (21-32) mmol/L Anion Gap 6 (3-11) BUN 14 (6-23) mg/dl Creatinine 1.25 (0.6-1.4) mg/dl Est Cr Clr Drug Dosing Not Reportable Est GFR ( Amer) 64.9 ml/min Est GFR (Non-Af Amer) 56.0 ml/min BUN/Creatinine Ratio 11.2 (10-20) Glucose 175 H (70-99(Fasting)) mg/dl Lactate 2.2 H* (0.4-2.0) mmol/L Calcium 7.8 L (8.6-10.3) mg/dl Magnesium 1.5 L (1.7-2.4) mg/dl Total Bilirubin 0.5 (0.2-1.0) mg/dl AST 17 (13-39) U/L ALT 8 (7-52) U/L Alkaline Phosphatase 294 H (34-104) U/L Troponin I High Sens 4.0 (0-20) pg/ml Total Protein 5.9 L (6.0-8.3) gm/dl Albumin 2.7 L (3.4-5.0) gm/dl Globulin 3.2 (2.5-4.0) gm/dl Albumin/Globulin Ratio 0.8 L (0.9-2) Procalcitonin 0.05 (0-0.5) ng/ml TSH 7.067 H (0.300-4.500) uIu/ml Free T4 0.74 (0.61-1.60) ng/dl Urine Color Yellow Urine Appearance Clear (Clear) Urine pH 5.5 (4.5-7.5) Ur Specific [place] 1.011 (1.000-1.030) Urine Protein Trace H (Negative) Urine Glucose (UA) Negative (Negative) Urine Ketones Negative (Negative) Urine Blood Trace H (Negative) Urine Nitrite Negative (Negative) Urine Bilirubin Negative (Negative) Urine Urobilinogen Negative (Negative) Ur Leukocyte Esterase 3+ H (Negative) Urine WBC (Auto) >50 H (0-5) /hpf Urine RBC (Auto) 0-2 (0-2) /hpf U Hyaline Cast (Auto) 0-2 (0-2) /lpf U Epithel Cells (Auto) 0-2 (0-2) /hpf Urine Bacteria (Auto) None Seen (None Seen) Administered Medications Enoxaparin Sodium (Enoxaparin Inj 40 Mg/0.4 Ml Syr) 40 mg SQ PM ISABELL Stop: 03/22/24 22:10 Last Admin: 02/21/24 23:30 Dose: 40 mg Documented By: [facility] Lactated Ringer's (Lr) 1,000 mls @ 80 mls/hr IV .[id number] ISABELL Stop: 02/23/24 03:37 Last Admin: 02/22/24 06:05 Dose: 125 mls/hr Documented By: [facility] Infusion: 02/22/24 06:05 Dose: Infused Documented By: [facility] Admin: 02/21/24 22:14 Dose: 125 mls/hr Documented By: [facility] Cefepime HCl 2,000 mg/ Syringe 20 mls @ 5 mls/min IV Q12H ISABELL; Protocol Stop: 02/28/24 21:59 Last Admin: 02/22/24 09:37 Dose: 5 mls/min Documented By: [facility] Admin: 02/21/24 22:14 Dose: 5 mls/min Documented By: [facility] Midodrine (Midodrine Hcl 2.5 Mg Tab) 2.5 mg PO TID@0700,1200,1700 ISABELL Stop: 03/23/24 06:59 Last Admin: 02/22/24 06:07 Dose: 2.5 mg Documented By: [facility] Pantoprazole Sodium (Pantoprazole 40 Mg Tab) 40 mg PO QAM ISABELL Stop: 03/23/24 08:59 Last Admin: 02/22/24 09:21 Dose: 40 mg Documented By: [facility] Discontinued Medications Sodium Chloride (Nss) 1,000 mls @ 999 mls/hr IV .Q1H1M ISABELL Stop: 02/21/24 18:15 Last Infusion: 02/21/24 18:50 Dose: Infused Documented By: [facility] Admin: 02/21/24 17:41 Dose: 999 mls/hr Documented By: [facility] Ceftriaxone Sodium (Rocephin) 2,000 mg in 50 mls @ 100 mls/hr IV NOW STA Stop: 02/21/24 17:44 Last Infusion: 02/21/24 18:50 Dose: Infused Documented By: Admin: 02/21/24 18:21 Dose: 100 mls/hr Documented By: [facility] Sodium Chloride (Nss) 1,000 mls @ 999 mls/hr IV .Q1H1M ONE Stop: 02/21/24 20:02 Last Infusion: 02/21/24 20:14 Dose: Infused Documented By: Admin: 02/21/24 19:10 Dose: 999 mls/hr Documented By: [facility] Magnesium Sulfate/Dextrose (Magnesium Sulfate / D5w) 1 gm in 100 mls @ 100 mls/hr IV NOW STA Stop: 02/21/24 20:01 Last Infusion: 02/21/24 20:33 Dose: Infused Documented By: Admin: 02/21/24 19:26 Dose: 100 mls/hr Documented By: [facility] Calcium Gluconate () 1,000 mg in 60 mls @ 240 mls/hr IV NOW STA Stop: 02/21/24 19:16 Last Infusion: 02/21/24 19:29 Dose: Infused Documented By: Admin: 02/21/24 19:08 Dose: 240 mls/hr Documented By: [facility] Imaging Data Radiologist's Impression: Chest X-Ray 02/21/24 17:14 XR chest 1V portable CLINICAL HISTORY: weakness TECHNIQUE: Single frontal radiograph of the chest was obtained. Comparison: Comparison is made to chest radiograph 11/28/[address] chest 04/08/2019 FINDINGS: No lines and tubes are seen. The cardiomediastinal silhouette is normal. F sinus changes are seen. No evidence of pleural effusion or pneumothorax. IMPRESSION: No acute chest disease. ACT 112: Negative or not required by law. Electronically signed by: Jamar Lopez M.D. 02/22/2024 6:59 AM Hand X-Ray 02/21/24 17:15 XR hand LT min 3V routine CLINICAL HISTORY: hand pain TECHNIQUE: 3 views of the left hand were obtained. Comparison: None available at the time of this dictation. FINDINGS: There is no evidence of an acute fracture. Demineralization is seen and there is joint space narrowing and osteophyte formation most prominent in the distal interphalangeal joint. No soft tissue abnormality is seen. IMPRESSION: Degenerative changes are seen without evidence of acute abnormality. ACT 112: Negative or not required by law. Electronically signed by: Jamar Lopez M.D. 02/22/2024 8:00 AM Hip/Pelvis X-Ray 02/21/24 17:15 XR hips ELIANE 1v w pelvis CLINICAL HISTORY: amb dysfunction, fall TECHNIQUE: 1 view of the right hip and single frontal view of the pelvis were obtained. Comparison: Comparison is made to CT abdomen pelvis 04/11/2023 FINDINGS: There is no evidence of an acute fracture. Degenerative changes are seen in the hip joint. No soft tissue abnormality is seen. IMPRESSION: No evidence of acute osseous injury. ACT 112: Negative or not required by law. Electronically signed by: Jamar Lopez M.D. 02/22/2024 7:05 AM Chest X-Ray 02/21/24 17:14 XR chest 1V portable CLINICAL HISTORY: weakness TECHNIQUE: Single frontal radiograph of the chest was obtained. Comparison: Comparison is made to chest radiograph 11/28/[address] chest 04/08/2019 FINDINGS: No lines and tubes are seen. The cardiomediastinal silhouette is normal. F sinus changes are seen. No evidence of pleural effusion or pneumothorax. IMPRESSION: No acute chest disease. ACT 112: Negative or not required by law. Electronically signed by: Jamar Lopez M.D. 02/22/2024 6:[address] 02/21/24 17:15 CT OF THE CERVICAL SPINE WITHOUT CONTRAST CLINICAL HISTORY: fall COMPARISON STUDY: Head CT May 16, 2015. TECHNIQUE: Helical axial images of the cervical spine were obtained without IV contrast. Sagittal and coronal reconstructions were viewed. Automated exposure control was utilized for the study. A dose lowering technique was utilized adhering to the principles of ALARA. FINDINGS: Alignment of the cervical spine is anatomic. Vertebral body heights are maintained. No acute cervical spine fracture or subluxation is present. There is no prevertebral edema. Facet joints are intact. Moderate multilevel disc space narrowing, osteophytosis and facet arthrosis within the cervical spine is noted. Severe emphysema is incidentally noted within the lung apices. IMPRESSION: No acute cervical spine fracture or subluxation. ACT 112: Negative or not required by law. Electronically signed by: Canelo Gonzales M.D. 02/21/2024 7:30 PM Hand X-Ray 02/21/24 17:15 XR hand LT min 3V routine CLINICAL HISTORY: hand pain TECHNIQUE: 3 views of the left hand were obtained. Comparison: None available at the time of this dictation. FINDINGS: There is no evidence of an acute fracture. Demineralization is seen and there is joint space narrowing and osteophyte formation most prominent in the distal interphalangeal joint. No soft tissue abnormality is seen. IMPRESSION: Degenerative changes are seen without evidence of acute abnormality. ACT 112: Negative or not required by law. Electronically signed by: Jamar Lopez M.D. 02/22/2024 8:[address] 02/21/24 17:15 CT OF THE HEAD WITHOUT CONTRAST CLINICAL HISTORY: fall COMPARISON STUDY: Head CT April 09, 2023. TECHNIQUE: Helical axial images of the head were obtained without IV contrast. Automated exposure control was utilized for the study. A dose lowering technique was utilized adhering to the principles of ALARA. FINDINGS: No acute intracranial hemorrhage, midline shift or mass effect is present. White matter hypodensities are unchanged and represent small vessel disease. The ventricular system is unremarkable. The basal cisterns are patent. No extra-axial collections are present. There are no findings to suggest acute dural sinus thrombosis or acute territorial infarct. No significant calvarial abnormalities are present. Visualized portions of the sinuses and mastoid air cells are clear. IMPRESSION: 1. No acute intracranial findings. 2. No calvarial fractures. ACT 112: Negative or not required by law. Electronically signed by: Canelo Gonzales M.D. 02/21/2024 7:16 PM Hip/Pelvis X-Ray 02/21/24 17:15 XR hips ELIANE 1v w pelvis CLINICAL HISTORY: amb dysfunction, fall TECHNIQUE: 1 view of the right hip and single frontal view of the pelvis were obtained. Comparison: Comparison is made to CT abdomen pelvis 04/11/2023 FINDINGS: There is no evidence of an acute fracture. Degenerative changes are seen in the hip joint. No soft tissue abnormality is seen. IMPRESSION: No evidence of acute osseous injury. ACT 112: Negative or not required by law. Electronically signed by: Jamar Lopez M.D. 02/22/2024 7:05 AM Discharge Plan Visit Data Chief Complaint: Fall ED Provider: Ata Alvarez Discharge Problem: Acute UTI, Acute dehydration, Cellulitis, Hypothermia Patient Disposition: Admitted As Inpatient Discharge Instructions Interventions: ED Discharge Assessment Last Done: 02/21/24 20:49 Discharge Problem: Cellulitis Qualifiers: Site of cellulitis: extremity Site of cellulitis of extremity: lower extremity Laterality: right Qualified Code(s): L03.115 - Cellulitis of right lower limb Hypothermia Qualifiers: Encounter type: initial encounter Qualified Code(s): T68.XXXA - Hypothermia, initial encounter
[2024-02-21] MEDS: SODIUM CHLORIDE 0.9% 1,000 ML IV SCH (17:41)
[2024-02-21 18:01] LABS: Basophils # (auto) 0.06 K/uL (0.00-0.20); Basophils % (auto) 0.7 %; Eosinophils # (auto) 0.37 K/uL (0.00-0.50); Eosinophils % (auto) 4.2 %; Hematocrit (blood only) 38.3 % (42.0-52.0); Immature Granulocytes # (auto) 0.12 K/uL (0.01-0.20); Immature Granulocytes % (auto) 1.4 %; Lymphocytes # (auto) 2.15 K/uL (1.20-3.40); Lymphocytes % (auto) 24.4 %; Mean Corpuscular Hemoglobin 31.2 pg (25.0-34.0); Mean Corpuscular Hgb Conc 33.9 g/dL (32.0-36.0); Mean Corpuscular Volume 91.8 fL (80.0-100.0); Mean Platelet Volume 8.5 fL (9.4-12.4); Monocytes # (auto) 0.59 K/uL (0.11-0.59); Monocytes % (auto) 6.7 %; Neutrophils # (auto) 5.51 K/uL (1.40-6.50); Neutrophils % (auto) 62.6 %; Platelet Count 276 K/uL (130-400); RDW Standard Deviation 43.8 fL (36.4-46.3); Red Blood Count 4.17 M/uL (4.70-6.10)
[2024-02-21] MEDS: cefTRIAXone SODIUM 2,000 MG/50 ML BAG IV STA (18:21)
[2024-02-21 18:23] LABS: Alanine Aminotransferase 8 U/L (7-52); Albumin Globulin Ratio 0.8 (0.9-2); Albumin Level 2.7 gm/dl (3.4-5.0); Alkaline Phosphatase 294 U/L (34-104); Anion Gap 6 (3-11); Aspartate Aminotransferase 17 U/L (13-39); BUN Creatinine Ratio 11.2 (10-20); Bilirubin,Total 0.5 mg/dl (0.2-1.0); Blood Urea Nitrogen 14 mg/dl (6-23); Calcium 7.8 mg/dl (8.6-10.3); Carbon Dioxide 25 mmol/L (21-32); Chloride 104 mmol/L (98-107); Est GFR (African American) 64.9 ml/min; Globulin 3.2 gm/dl (2.5-4.0); Glucose 175 mg/dl (70-99(Fasting)); Magnesium 1.5 mg/dl (1.7-2.4); Potassium 3.7 mmol/L (3.5-5.1); Sodium 135 mmol/L (136-145); Total Protein 5.9 gm/dl (6.0-8.3)
[2024-02-21 18:38] LABS: Thyroid Stimulating Hormone 7.067 uIu/ml (0.300-4.500)
[2024-02-21] MEDS: CALCIUM GLUCONATE 1,000 MG/60 ML BAG IV STA (19:08)
[2024-02-21] MEDS: SODIUM CHLORIDE 0.9% 1,000 ML IV ONE (19:10)
[2024-02-21 19:13] LABS: T4 Free Thyroxine 0.74 ng/dl (0.61-1.60)
--- NOTE | 2024-02-21 19:17 | CT Scan Report ---
CT OF THE HEAD WITHOUT CONTRAST CLINICAL HISTORY: fall COMPARISON STUDY: Head CT April 09, 2023. TECHNIQUE: Helical axial images of the head were obtained without IV contrast. Automated exposure con trol was utilized for the study. A dose lowering technique was utilized adhering to the principles o f ALARA. FINDINGS: No acute intracranial hemorrhage, midline shift or mass effect is present. White matter hyp odensities are unchanged and represent small vessel disease. The ventricular system is unremarkable. The basal cisterns are patent. No extra-axial collections are present. There are no findings to sugge st acute dural sinus thrombosis or acute territorial infarct. No significant calvarial abnormalities are present. Visualized portions of the sinuses and mastoid air cells are clear. IMPRESSION: 1. No acute intracranial findings. 2. No calvarial fractures. ACT 112: Negative or not required by law. Electronically signed by: Canelo Gonzales M.D. 02/21/2024 7:16 PM
[2024-02-21 19:18] LABS: Appearance Urine Clear (Clear); Bacteria Urine Automated None Seen (None Seen); Bilirubin Urine Negative (Negative); Blood Urine Trace (Negative); Cast Urine Automated 0-2 /lpf (0-2); Color Urine Yellow; Epithelial Cell Urine Auto 0-2 /hpf (0-2); Glucose Urine UA Negative (Negative); Ketones Urine Negative (Negative); Leukocyte Esterase Urine 3+ (Negative); Nitrite Urine Negative (Negative); Protein Urine Trace (Negative); RBC Urine Automated 0-2 /hpf (0-2); Specific Gravity Urine 1.011 (1.000-1.030); Urobilinogen Urine Negative (Negative); WBC Urine Automated >50 /hpf (0-5); pH Urine 5.5 (4.5-7.5)
[2024-02-21] MEDS: MAGNESIUM SULFATE / D5W 1 GM/100 ML BAG IV STA (19:26)
--- NOTE | 2024-02-21 19:31 | CT Scan Report ---
CT OF THE CERVICAL SPINE WITHOUT CONTRAST CLINICAL HISTORY: fall COMPARISON STUDY: Head CT May 16, 2015. TECHNIQUE: Helical axial images of the cervical spine were obtained without IV contrast. Sagittal a nd coronal reconstructions were viewed. Automated exposure control was utilized for the study. A do se lowering technique was utilized adhering to the principles of ALARA. FINDINGS: Alignment of the cervical spine is anatomic. Vertebral body heights are maintained. No acut e cervical spine fracture or subluxation is present. There is no prevertebral edema. Facet joints are intact. Moderate multilevel disc space narrowing, osteophytosis and facet arthrosis within the cerv ical spine is noted. Severe emphysema is incidentally noted within the lung apices. IMPRESSION: No acute cervical spine fracture or subluxation. ACT 112: Negative or not required by law. Electronically signed by: Canelo Gonzales M.D. 02/21/2024 7:30 PM
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
[2024-02-21] MEDS ORDERED: ONDANSETRON INJ 2 MG/ML 2 ML VIAL IV PRN (22:11)
[2024-02-21] MEDS ORDERED: ACETAMINOPHEN 325 MG TAB PO PRN (22:11)
[2024-02-21] MEDS ORDERED: POLYETHYLENE (MIRALAX) 17 GM PACK PO PRN (22:11)
[2024-02-21] MEDS: CEFEPIME 2,000 MG in SYRINGE 0 ML IV SCH (22:14)
[2024-02-21] MEDS: LACTATED RINGER'S 1,000 ML IV SCH (22:14)
[2024-02-21] MEDS: ENOXAPARIN INJ 40 MG/0.4 ML SYR SQ SCH (23:30)
[2024-02-22] MEDS: MIDODRINE HCL 2.5 MG TAB PO SCH (06:07)
[2024-02-22 06:29] LABS: Basophils # (auto) 0.06 K/uL (0.00-0.20); Basophils % (auto) 0.6 %; Eosinophils # (auto) 0.27 K/uL (0.00-0.50); Eosinophils % (auto) 2.8 %; Hematocrit (blood only) 35.9 % (42.0-52.0); Hemoglobin 12.1 g/dl (14.0-18.0); Immature Granulocytes # (auto) 0.09 K/uL (0.01-0.20); Immature Granulocytes % (auto) 0.9 %; Lymphocytes # (auto) 2.53 K/uL (1.20-3.40); Lymphocytes % (auto) 25.8 %; Mean Corpuscular Hemoglobin 30.8 pg (25.0-34.0); Mean Corpuscular Hgb Conc 33.7 g/dL (32.0-36.0); Mean Corpuscular Volume 91.3 fL (80.0-100.0); Mean Platelet Volume 8.6 fL (9.4-12.4); Monocytes # (auto) 0.75 K/uL (0.11-0.59); Monocytes % (auto) 7.6 %; Neutrophils # (auto) 6.11 K/uL (1.40-6.50); Neutrophils % (auto) 62.3 %; Platelet Count 255 K/uL (130-400); RDW Coefficient of Variation 12.9 % (11.5-14.5); RDW Standard Deviation 43.1 fL (36.4-46.3); Red Blood Count 3.93 M/uL (4.70-6.10); White Blood Count 9.81 K/ul (4.8-10.8)
--- NOTE | 2024-02-22 06:59 | Electrocardiogram Report ---
Test Reason : Blood Pressure : / mmHG Vent. Rate : 076 BPM Atrial Rate : 076 BPM P-R Int : 154 ms QRS Dur : 080 ms QT Int : 410 ms P-R-T Axes : 080 -39 062 degrees QTc Int : 461 ms Normal sinus rhythm Left axis deviation Nonspecific T wave abnormality Abnormal ECG When compared with ECG of 28-NOV-2023 10:11, No significant change was found Confirmed by Hernando Gillespie ([id number]) on 02/22/2024 6:59:29 AM Referred By: REFERRED SELF Confirmed By:Clive Gillespie
--- NOTE | 2024-02-22 07:02 | XRay Report ---
XR chest 1V portable CLINICAL HISTORY: weakness TECHNIQUE: Single frontal radiograph of the chest was obtained. Comparison: Comparison is made to chest radiograph 11/28/[address] chest 04/08/2019 FINDINGS: No lines and tubes are seen. The cardiomediastinal silhouette is normal. F sinus changes are seen. No evidence of pleural effusion or pneumothorax. IMPRESSION: No acute chest disease. ACT 112: Negative or not required by law. Electronically signed by: Jamar Lopez M.D. 02/22/2024 6:59 AM
[2024-02-22 07:04] LABS: Albumin Globulin Ratio 0.8 (0.9-2); Albumin Level 2.2 gm/dl (3.4-5.0); BUN Creatinine Ratio 10.7 (10-20); Bilirubin,Total 0.4 mg/dl (0.2-1.0); Calcium 7.6 mg/dl (8.6-10.3); Creatinine Clr Calc Pharmacy 57.1 ml/min; Est GFR (Non-African American) 70.7 ml/min; Globulin 2.7 gm/dl (2.5-4.0); Magnesium 1.7 mg/dl (1.7-2.4); Phosphorus 3.5 mg/dl (2.5-4.9); Potassium 3.8 mmol/L (3.5-5.1); Total Protein 4.9 gm/dl (6.0-8.3)
--- NOTE | 2024-02-22 07:07 | XRay Report ---
XR hips ELIANE 1v w pelvis CLINICAL HISTORY: amb dysfunction, fall TECHNIQUE: 1 view of the right hip and single frontal view of the pelvis were obtained. Comparison: Comparison is made to CT abdomen pelvis 04/11/2023 FINDINGS: There is no evidence of an acute fracture. Degenerative changes are seen in the hip joint. No soft ti ssue abnormality is seen. IMPRESSION: No evidence of acute osseous injury. ACT 112: Negative or not required by law. Electronically signed by: Jamar Lopez M.D. 02/22/2024 7:05 AM
--- NOTE | 2024-02-22 08:01 | XRay Report ---
XR hand LT min 3V routine CLINICAL HISTORY: hand pain TECHNIQUE: 3 views of the left hand were obtained. Comparison: None available at the time of this dictation. FINDINGS: There is no evidence of an acute fracture. Demineralization is seen and there is joint space narrowin g and osteophyte formation most prominent in the distal interphalangeal joint. No soft tissue abnorma lity is seen. IMPRESSION: Degenerative changes are seen without evidence of acute abnormality. ACT 112: Negative or not required by law. Electronically signed by: Jamar Lopez M.D. 02/22/2024 8:00 AM
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
--- OUTSIDE RECORDS SUMMARY | 2024-02-22 09:11 | External Medical Summary | Continuity Of Care Document ---
Author Name Unknown Address [address] [place] [address] Organization [facility] ( ) Care Team Providers Care Loader Semiconductor Dies Name Role Phone Eve Soni Primary Care Provider [phone] Allergies Allergy Reaction Start Date End Date Status NO KNOWN DRUG ALLERGIES A ctive VITAL SIGNS Date Time Diastolic blood pressure Systolic blood pressure Body height Body weight Temperature SpO2 Blood Sugar Pulse Respirations 23720 220 14362 7 67 [place] [address] 220 50612 8 74.00 mm[Hg] - Sitting 109.00 mm[Hg] - Sitting 150.00 NI 95.80 Ear 99.00 % 80.00/ min 18.00/min 49620 220 12379 7 67 NI [address]93 220 65296 5 07272 221 94547 1 74.00 mm[Hg] - Lying Down 109.00 mm[Hg] - Lying Down 95.80 Ear 80.00/ min 18.00/min
--- OUTSIDE RECORDS SUMMARY | 2024-02-22 09:11 | External Medical Summary ---
Author Name Unknown Address Unknown Organization [id number][facility] [address] [facility] [address] [place] [address] Laboratory Report Ordering Provider Test Date Status ANAHY GOODE 12/09/2023 05:25:00 Final Observation Date Value Abnormality Reference (Units ) Status WBC, Total 12/09/2023 05:25:00 12.23 Above high normal 4 .00-10.80 (K/uL) Final RBC 12/09/2023 05:25:00 3.77 4.50-5.25 (M/uL) Final Hemoglobin 12/09/2023 05:25:00 11.6 Below low normal 14 .0-16.8 (g/dL) Final HCT 12/09/2023 05:25:00 35.3 Below low normal 40. 0-48.4 (%) Final MCV 12/09/2023 05:25:00 93.6 82.0-99.5 (fL) Final MCH 12/09/2023 05:25:00 30.8 27.0-34.0 (pg) Final MCHC 12/09/2023 05:25:00 32.9 32.0-36.0 (g/dL) Final RDW 12/09/2023 05:25:00 13.6 11.5-15.5 (%) Final Platelets 12/09/2023 05:25:00 286 140-400 (K /uL) Final MPV 12/09/2023 05:25:00 10.1 6.6-11.1 ( fL) Final Performing Location [facility] [address] [place] [address]
--- OUTSIDE RECORDS SUMMARY | 2024-02-22 09:11 | External Medical Summary | Continuity Of Care Document ---
Author Name Unknown Address [address] [place] [address] Organization [facility] ( ) Care Team Providers Care Creative Services Designer Name Role Phone Eve Soni Primary Care Provider [phone] Allergies Allergy Reaction Start Date End Date Status NO KNOWN DRUG ALLERGIES A ctive VITAL SIGNS Date Time Diastolic blood pressure Systolic blood pressure Body height Body weight Temperature SpO2 Blood Sugar Pulse Respirations 09361 220 52984 7 67 NI [address]776 220 61186 8 74.00 mm[Hg] - Sitting 109.00 mm[Hg] - Sitting 150.00 NI 95.80 Ear 99.00 % 80.00/ min 18.00/min 73706 220 96375 7 67 NI 14237 220 22694 5 24069 221 04179 1 74.00 mm[Hg] - Lying Down 109.00 mm[Hg] - Lying Down 95.80 Ear 80.00/ min 18.00/min
--- OUTSIDE RECORDS SUMMARY | 2024-02-22 09:11 | External Medical Summary | Summary of Care ---
Author Name Unknown Organization [facility] Address [address] [place] [address] Phone [phone] Care Team Providers Care Gold Prospector Name Role Phone Eve Soni MD Primary Care Provider [phone] Encounter Details Date Type Department Care Team (Late st Contact Info) Description 12/08/2023 Orders Only Lab [facility] [address] [place] [address] Eve Soni MD [address] [place] [address] [place] [id number] CKD (chronic kidney disease), symptom management only* Allergies No known active allergiesdocumented as of this encounter (statuses as of 12/08/2023) Medications Medication Sig Dispensed Refills Start Date [...] as of this encounter (statuses as of 12/08/2023) Active Problems Problem Noted Date Diagnosed Date Visual distortions of shape and size 06/19/2023 documented as of this encounter (statuses as of 12/08/2023) Social History Tobacco Use Types Packs/Day Years [...] on file documented as of this encounter Plan of Treatment Upcoming Encounters Date Type Department Care Team (Late st Contact Info) Description 12/09/2023 8:40 AM EST Laboratory Lab [facility] [address] [place] [address] Scheduled Orders Name Type Priority Associated Diagnoses Orde r Schedule COMPREHENSIVE METABOLIC PANEL Lab Routine CKD (chronic kidney disease), symptom management only Expected: 12/09/2023, Expires: 12/08/2024 CBC Lab Routine CKD (chronic kidney disease), symptom management only Expected: 12/09/2023, Expires: 12/08/2024 ERYTHROCYTE SEDIMENTATION RATE (ESR) Lab Routine CKD (chronic kidney disease), symptom management only Expected: 12/09/2023, Expires: 12/08/2024 Health Maintenance Due Date Last Done Comments Lipid Panel 1950 Pneumococcal Vaccine: 65+ Years (1 of 2 - PCV) 1955 Depression Screening 1961 Hepatitis C Screening 1967 DTaP,Tdap,and Td Vaccines (1 - Tdap) 01/14/1968 Cologuard 1994 Colonoscopy 1994 Colorectal Cancer Screening 1994 Fecal Occult Blood Test 1994 Sigmoidoscopy 1994 Zoster Vaccines (1 of 2) 1999 AAA Screening 2014 COVID-19 Vaccine (4 - 2022-2 4 season) 2023 11/03/2021, 03/15/2021, 02/15/2021 Influenza Vaccine (FLU shot) (#1) 2023 LUNG CANCER SCREENING - USE SMARTSET [id number] Completed 03/04/2015 GARDASIL-HPV IMMUNIZATION SERIES Aged Out No longer eligible b ased on patient's age to complete this topic Hepatitis B Aged Out No longer eligi ble based on patient's age to complete this topic MENINGOCOCCAL (MENACTRA/MENVEO) Aged Out No longer eligible b ased on patient's age to complete this topic documented as of this encounter Medical Devices Not on filedocumented as of this encounter Visit Diagnoses Diagnosis CKD (chronic kidney disease), symptom management only- Primary Chronic kidney disease, unspecified documented in this encounter Care Teams Gold Prospector Relationship Specialty Start Date End Date Eve Soni MD [address] [place] [address] [place] [id number] PCP - General 05/31/09 documented as of this encounter
--- OUTSIDE RECORDS SUMMARY | 2024-02-22 09:11 | External Medical Summary ---
Author Name Unknown Address Unknown Organization K01:[facility] [place] [address] [place] [address] Laboratory Report Ordering Provider Test Date Status ANAHY GOODE 12/09/2023 05:25:00 Final Observation Date Value Abnormality Reference (Units ) Status Erythrocyte sedimentation rate by Photometric method 12/09/2023 05:25:00 3 <20 (mm/hour) Final Performing Location LABORATORY [facility] [address] [place] [address]
--- OUTSIDE RECORDS SUMMARY | 2024-02-22 09:11 | External Medical Summary | Continuity Of Care Document ---
Author Name Unknown Address [address] [place] [address] Organization [facility] ( ) Care Team Providers Care Metal Trim Erector Name Role Phone ZachariahKadeemie Primary Care Provider [phone] Allergies Allergy Reaction Start Date End Date Status NO KNOWN DRUG ALLERGIES A ctive Problems Code Description Start Date End Date Status A04.72 Enterocolitis due to Clostridium difficile, not specified as recurrent 12/03/2023 Active R65.21 Severe sepsis with septic shock 12/03/2023 00/0 Active N17.9 Acute kidney failure, unspecified 12/03/2023 Active N18.30 Chronic kidney disease, stage 3 unspecified Active E11.9 Type 2 diabetes mellitus without complications 12/03/2023 Active J44.9 Chronic obstructive pulmonary disease, unspecified 12/03/2023 Active R03.1 Nonspecific low blood-pressure reading 12/03/19 24 Active N35.911 Unspecified urethral stricture, male, meatal Active VITAL SIGNS Date Time Diastolic blood pressure Systolic blood pressure Body height Body weight Temperature SpO2 Blood Sugar Pulse Respirations 220 29496 7 67 [place] [address] 220 04569 8 74.00 mm[Hg] - Sitting 109.00 mm[Hg] - Sitting 150.00 NI 95.80 Ear 99.00 % 80.00/ min 18.00/min 48700 220 61642 7 67 NI 83781 220 62597 5 18874 221 10955 1 74.00 mm[Hg] - Lying Down 109.00 mm[Hg] - Lying Down 95.80 Ear 80.00/ min 18.00/min 17118 221 36058 0 61.00 mm[Hg] - Sitting 97.00 mm[Hg] - Sitting 97.10 Ear 95.00 % 96.00/ min 18.00/min 19373 221 22914 1 49280 221 26562 3 142.00 NI [address] 221 23302 2 61.00 mm[Hg] - Sitting 97.00 mm[Hg] - Sitting 97.10 Ear 96.00/ min 18.00/min 78370 222 34538 2 61.00 mm[Hg] - Sitting 97.00 mm[Hg] - Sitting 97.10 Ear 96.00/ min 18.00/min 55922 222 08415 7 70.00 mm[Hg] - Sitting 108.00 mm[Hg] - Sitting 96.80 Oral 96.00 % 93.00/ min 18.00/min
--- OUTSIDE RECORDS SUMMARY | 2024-02-22 09:11 | External Medical Summary ---
Author Name Unknown Address Unknown Organization [facility] [address] [place] [id number] Laboratory Report Ordering Provider Test Date Status ANAHY GOODE 12/09/2023 05:25:00 Final Observation Date Value Abnormality Reference (Units ) Status BUN 12/09/2023 05:25:00 13 6-20 (mg/dL) Final Creatinine 12/09/2023 05:25:00 1.5 Above high normal 0.6-1.2 (mg/dL) Final Glomerular filtration rate/1.73 sq M.predicted [Volume Rate/Area] in Serum, Plasma or Blood by Creatinine-based formula (CKD-EPI) 12/09/2023 05:25:00 50 Below low normal >=60 (mL/min) Final eGFR is calculated based on the CKD-EPI 2020 equation SODIUM 12/09/2023 05:25:00 132 Below low normal 135 -146 (mmol/L) Final Potassium 12/09/2023 05:25:00 4.7 3.5-5.1 (m mol/L) Final Cl 12/09/2023 05:25:00 97 Below low normal 98- 107 (mmol/L) Final CO2 12/09/2023 05:25:00 24 22-32 (mmo l/L) Final Anion gap 12/09/2023 05:25:00 11 7-15 (mmol /L) Final Glucose 12/09/2023 05:25:00 570 Above upper panic li mits 70-120 (mg/dL) Final Results rechecked. Albumin 12/09/2023 05:25:00 2.3 Below low normal 3.8 -5.0 (g/dL) Final AST (Aspartate aminotransferase) 12/09/2023 05:25:00 70 Above high normal 10-50 (U/L) Final Alk Phos 12/09/2023 05:25:00 802 Above high normal 35 -130 (U/L) Final Bilirubin, Total 12/09/2023 05:25:00 0.6 <=1 .2 (mg/dL) Final Calcium 12/09/2023 05:25:00 7.8 Below low normal 8.4 -10.2 (mg/dL) Final Protein 12/09/2023 05:25:00 4.9 Below low normal 6.0 -8.3 (g/dL) Final ALT (Alanine aminotransferase) 12/09/2023 05:25:00 42 10-50 (U/L) Jose Eduardo cardenas Performing Location [facility] [address] [facility] [id number]
--- OUTSIDE RECORDS SUMMARY | 2024-02-22 09:11 | External Medical Summary | Continuity Of Care Document ---
Author Name Unknown Address [address] [place] [address] Organization [facility] ( ) Care Team Providers Care Lan Specialist Name Role Phone Eve Soni Primary Care Provider [phone] Allergies Allergy Reaction Start Date End Date Status NO KNOWN DRUG ALLERGIES A ctive VITAL SIGNS Date Time Diastolic blood pressure Systolic blood pressure Body height Body weight Temperature SpO2 Blood Sugar Pulse Respirations 01180 220 82864 7 67 NI 27544 220 60198 8 74.00 mm[Hg] - Sitting 109.00 mm[Hg] - Sitting 150.00 NI 95.80 Ear 99.00 % 80.00/ min 18.00/min 59679 220 93356 7 67 NI 34227 220 09910 5 39845 221 39081 1 74.00 mm[Hg] - Lying Down 109.00 mm[Hg] - Lying Down 95.80 Ear 80.00/ min 18.00/min
--- OUTSIDE RECORDS SUMMARY | 2024-02-22 09:11 | External Medical Summary | Continuity Of Care Document ---
Author Name Unknown Address [address] [place] [address] Organization [facility] ( ) Care Team Providers Care Black Belt Name Role Phone ZachariahKadeemie Primary Care Provider [phone] Allergies Allergy Reaction Start Date End Date [...] Temperature SpO2 Blood Sugar Pulse Respirations 220 31866 7 67 NI 24745 220 05273 8 74.00 mm[Hg] - Sitting 109.00 mm[Hg] - Sitting 150.00 NI 95.80 Ear 99.00 % 80.00/ min 18.00/min 10290 220 92169 7 67 NI 38438 220 37888 5 35970 221 43238 1 74.00 mm[Hg] - Lying Down 109.00 mm[Hg] - Lying Down 95.80 Ear 80.00/ min 18.00/min 54222 221 09526 0 61.00 mm[Hg] - Sitting 97.00 mm[Hg] - Sitting 97.10 Ear 95.00 % 96.00/ min 18.00/min 72002 221 17877 1 24884 221 40544 3 142.00 NI 26812 221 55844 2 61.00 mm[Hg] - Sitting 97.00 mm[Hg] - Sitting 97.10 Ear 96.00/ min 18.00/min 76215 222 27920 4 25460 222 19012 2 61.00 mm[Hg] - Sitting 97.00 mm[Hg] - Sitting 97.10 Ear 96.00/ min 18.00/min 03747 222 24301 7 70.00 mm[Hg] - Sitting 108.00 mm[Hg] - Sitting 96.80 Oral 96.00 % 93.00/ min 18.00/min 07801 222 53574 6 67 NI 71793 222 93099 8 99954 222 51022 5 142.00 NI 73380 222 38125 2 70.00 mm[Hg] - Sitting 108.00 mm[Hg] - Sitting 96.80 Ear 93.00/ min 18.00/min 08545 222 02745 3 66.00 mm[Hg] - Sitting 98.00 mm[Hg] - Sitting 97.10 Ear 96.00 % 87.00/ min 20.00/min
[2024-02-22] MEDS: PANTOprazole 40 MG TAB PO SCH (09:21)
[2024-02-22] MEDS: VANCOMYCIN HCL 125 MG/2.5ML SOLN PO SCH (13:45)
[2024-02-22] MEDS: CHERRY SYRUP 5 ML UDP PO SCH (13:45)
--- NOTE | 2024-02-22 21:27 | Billing Data ---
Date of Service February 22, 2024 Coding Level of Care Code 49961 INT INP/OBS CARE
[2024-02-22] MEDS ORDERED: GLUCOSE 10 TAB/TUBE PO PRN (22:14)
[2024-02-22] MEDS ORDERED: GLUCAGON FOR INJ 1 MG VIAL SQ PRN (22:14)
[2024-02-22] MEDS ORDERED: CARBOHYDRATES FOR HYPOGLYCEMIA PO PRN (22:14)
[2024-02-22] MEDS ORDERED: DEXTROSE 50% 50 ML SYRINGE IV PRN (22:14)
[2024-02-22] MEDS ORDERED: GLUCOSE 40% GEL 15 GM TUBE PO PRN (22:14)
[2024-02-22] MEDS: INSULIN ASPART PER UNIT CHARGE SC SCH (23:24)
[2024-02-23 05:43] LABS: Cdiff Toxin B Gene (2yr or >) Positive Cdiff Gene (Neg)
[2024-02-23 05:44] LABS: Cdiff Antigen Positive; Cdiff Toxin A+B Negative Cdiff Toxin (Negative)
[2024-02-23 06:33] LABS: Basophils # (auto) 0.06 K/uL (0.00-0.20); Basophils % (auto) 0.7 %; Eosinophils % (auto) 4.7 %; Hematocrit (blood only) 33.9 % (42.0-52.0); Hemoglobin 11.2 g/dl (14.0-18.0); Immature Granulocytes # (auto) 0.05 K/uL (0.01-0.20); Immature Granulocytes % (auto) 0.6 %; Lymphocytes # (auto) 2.55 K/uL (1.20-3.40); Lymphocytes % (auto) 30.1 %; Mean Corpuscular Hemoglobin 30.4 pg (25.0-34.0); Mean Corpuscular Volume 91.9 fL (80.0-100.0); Mean Platelet Volume 8.8 fL (9.4-12.4); Monocytes # (auto) 0.67 K/uL (0.11-0.59); Monocytes % (auto) 7.9 %; Neutrophils # (auto) 4.74 K/uL (1.40-6.50); Platelet Count 253 K/uL (130-400); RDW Coefficient of Variation 12.7 % (11.5-14.5); RDW Standard Deviation 42.8 fL (36.4-46.3); Red Blood Count 3.69 M/uL (4.70-6.10); White Blood Count 8.47 K/ul (4.8-10.8)
[2024-02-23 07:10] LABS: Albumin Globulin Ratio 0.8 (0.9-2); Albumin Level 2.2 gm/dl (3.4-5.0); BUN Creatinine Ratio 10.2 (10-20); Bilirubin,Total 0.4 mg/dl (0.2-1.0); Calcium 7.7 mg/dl (8.6-10.3); Est GFR (Non-African American) 54.4 ml/min; Globulin 2.9 gm/dl (2.5-4.0); Magnesium 1.6 mg/dl (1.7-2.4); Phosphorus 2.7 mg/dl (2.5-4.9); Potassium 3.9 mmol/L (3.5-5.1); Total Protein 5.1 gm/dl (6.0-8.3)
--- NOTE | 2024-02-23 08:39 | Hospitalist Progress Note ---
Date of Service February 23, 2024 Assessment & Plan (1) Exposure to body fluid: Plan: Concern for infectious process. UA with signs of infection - > 50 WBCs, 3+ leukocyte esterase, Bact - none. This would be most consistent with prostatitis. In October grew Proteus resistant to Cefepime, but sens to Cipro, will change abx BCx and UCx NGTD. Patient does have open skin on the hands and irritated, excoriated skin on RLE. ?Cellulitis vs inflamed contact dermatitis from stool contact CXR without obvious infiltrate/consolidation. No oxygen requirement. Given CTX x1 in the ED. Non-septic appearing at present - hypothermic, lactate 2.2-->1.5 | but no leukocytosis, hypotension, tachycardia, or tachypnea. Patient with diabetes history and exposure to fecal material. Would want broader coverage gram negatives. f/u blood/urine cultures started cefepime, will change to Cipro wound nurse consulted monitor for signs of sepsis Neg MRSA nares (2) Hypothermia: Plan: Patient found covered in stool and hypothermic on admission. Third hospitalization this year. Initial was with Proteus UTI 11/09-2023, then 11/28- with C.Diff. Uncertain as to family situation. CM consulted for dispo planning. Call placed to son to clarify/assess for home status. Call placed, son states that he checks glu 3x/day and notes glu is "up and down". Hypothermia mild - resolved PCU/Tele initially, will transfer to Med/Surg. No arrhythmias noted since admission Input from CM appreciated (3) Weakness: Plan: Likely malnourished/failure to thrive/deconditioned. Discussed with son, pt remains weak and high probability he would benefit from SNF rehab. Asked son to consider PT/OT Refeeding labs Alb 2.2 Present on Admission?: Yes (4) Fecal soiling due to fecal incontinence: Plan: Stool checked for c. dif colitis. Stool soft/formed. Stool was Gene pos, toxin neg (5) Acute UTI: Plan: will dc [place] and start voiding trial studies most consistent with Prostatitis Present on Admission?: Yes (6) DM2 (diabetes mellitus, type 2): Plan: Resume home metformin. Patient was to stop insulin after last hospitalization. Son takes care of medications, states still on insulin Present on Admission?: Yes (7) GERD (gastroesophageal reflux disease): Plan: Continue home pantoprazole (8) Cellulitis: Plan: See above Plan Code status: full DVT ppx: lovenox Q24 FENGI: 2L NS in ED, LR @ 125 x3L, carb consistent Dispo: transfer to med/surg CM: consulted for complex dispo needs Input of Phys Therapy appreciated Admission and Anticipated Discharge Date Admission Date: February 21, 2024 Subjective answering basic questions, obviously weak, denies diarrhea. Voice is stronger today, appears less toxic tele - NSR, no arrhythmias, Review of Systems Review of Systems: See HPI Physical Exam Physical Exam: WDWN 74 yo WM in NAD HEENT unremarkable Neck supple Lungs clear, no rales, no wheezes, no rhonchi CV reg, w/o m, g Abd soft, nondistended, nl BS Ext no edema Results & Data Results & Data Vital Signs (Past 12 Hours) Vital Signs Temp Pulse Pulse Resp BP Pulse Ox O2 Del Method 02/23/24 03:31 36.9 C 68 19 96/58 L 95 Nasal Cannula 02/22/24 23:11 88 L Room Air 02/22/24 23:11 36.8 C 75 18 92/55 L 90 Nasal Cannula 02/22/24 21:50 73 O2 Flow Rate 02/23/24 03:31 2 02/22/24 23:11 02/22/24 23:11 2 02/22/24 21:50 Laboratory Results WBC 8.47 BUN/Creat 13/1.28 PG Care Time/CCT Total # of Minutes Spent Total Time Spent with Patient: Total time spent is greater than 50% in coordination of care (as documented) at patient's floor/unit and/or counseling patient: Coding Level of Care Code 02264 SUB INP/OBS CARE 3/50MIN Diagnoses Exposure to body fluid Z77.21 Hypothermia, initial encounter T68.XXXA Encounter type: initial encounter Weakness R53.1 Fecal soiling due to fecal incontinence R15.9 Acute UTI N39.0 Type 2 diabetes mellitus without complication, without long-term current use of insulin E11.9 Diabetes mellitus half-way insulin use: without half-way use Diabetes mellitus complication status: without complication Gastroesophageal reflux disease, unspecified whether esophagitis present K21.9 Esophagitis presence: esophagitis presence not specified Cellulitis of left lower extremity L03.115 Site of cellulitis: extremity Site of cellulitis of extremity: lower extremity Laterality: right Time Spent (min) 45 (2) Hypothermia Encounter type: initial encounter Qualified Code(s): T68.XXXA - Hypothermia, initial encounter (6) DM2 (diabetes mellitus, type 2) 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
[2024-02-23] MEDS: metFORMIN HCL 500 MG TAB PO SCH (09:55)
[2024-02-23] MEDS: CIPROFLOXACIN 500 MG TAB PO SCH (09:55)
[2024-02-23] MEDS: CHERRY SYRUP 5 ML UDP PO SCH (17:14)
[2024-02-23] MEDS: VANCOMYCIN HCL 125 MG/2.5ML SOLN PO SCH (17:14)
[2024-02-23] MEDS ORDERED: CHERRY SYRUP 5 ML UDP PO SCH (18:00)
[2024-02-24 06:38] LABS: Basophils # (auto) 0.05 K/uL (0.00-0.20); Basophils % (auto) 0.6 %; Eosinophils # (auto) 0.35 K/uL (0.00-0.50); Eosinophils % (auto) 4.3 %; Hematocrit (blood only) 35.3 % (42.0-52.0); Hemoglobin 11.7 g/dl (14.0-18.0); Immature Granulocytes # (auto) 0.06 K/uL (0.01-0.20); Immature Granulocytes % (auto) 0.7 %; Lymphocytes # (auto) 2.26 K/uL (1.20-3.40); Lymphocytes % (auto) 27.5 %; Mean Corpuscular Hemoglobin 30.2 pg (25.0-34.0); Mean Corpuscular Hgb Conc 33.1 g/dL (32.0-36.0); Mean Corpuscular Volume 91.2 fL (80.0-100.0); Mean Platelet Volume 8.8 fL (9.4-12.4); Monocytes # (auto) 0.63 K/uL (0.11-0.59); Monocytes % (auto) 7.7 %; Neutrophils # (auto) 4.86 K/uL (1.40-6.50); Neutrophils % (auto) 59.2 %; Platelet Count 237 K/uL (130-400); RDW Coefficient of Variation 12.4 % (11.5-14.5); RDW Standard Deviation 41.2 fL (36.4-46.3); Red Blood Count 3.87 M/uL (4.70-6.10); White Blood Count 8.21 K/ul (4.8-10.8)
[2024-02-24 07:34] LABS: Albumin Globulin Ratio 0.9 (0.9-2); Albumin Level 2.4 gm/dl (3.4-5.0); BUN Creatinine Ratio 9.1 (10-20); Bilirubin,Total 0.5 mg/dl (0.2-1.0); Calcium 7.9 mg/dl (8.6-10.3); Creatinine Clr Calc Pharmacy 41.2 ml/min; Est GFR (African American) 55.1 ml/min; Est GFR (Non-African American) 47.6 ml/min; Globulin 2.8 gm/dl (2.5-4.0); Magnesium 1.6 mg/dl (1.7-2.4); Phosphorus 2.5 mg/dl (2.5-4.9); Potassium 3.7 mmol/L (3.5-5.1); Total Protein 5.2 gm/dl (6.0-8.3)
--- NOTE | 2024-02-24 13:33 | Hospitalist Progress Note ---
Date of Service February 24, 2024 Assessment & Plan (1) Exposure to body fluid: Plan: Concern for infectious process. UA with signs of infection - > 50 WBCs, 3+ leukocyte esterase, Bact - none. This would be most consistent with prostatitis. In October grew Proteus resistant to Cefepime, but sens to Cipro, will change abx BCx and UCx NGTD. Patient does have open skin on the hands and irritated, excoriated skin on RLE. currently does not have typical Cellulitis appearance, more likely inflamed contact dermatitis from stool contact on top of chronic stasis dermatitis will request Wound Care input CXR without obvious infiltrate/consolidation. No oxygen requirement. Given CTX x1 in the ED. Non-septic appearing at present - hypothermic, lactate 2.2-->1.5 | but no leukocytosis, hypotension, tachycardia, or tachypnea. Patient with diabetes history and exposure to fecal material. Would want broader coverage gram negatives. blood/urine cultures - NGTD started cefepime, will change to Cipro wound nurse consulted monitor for signs of sepsis Neg MRSA nares (2) Hypothermia: Plan: Patient found covered in stool and hypothermic on admission. Third hospitalization this year. Initial was with Proteus UTI 11/09-2023, then 11/28- with C.Diff. Uncertain as to family situation. CM consulted for dispo planning. Call placed to son to clarify/assess for home status. Call placed, son states that he checks glu 3x/day and notes glu is "up and down". Hypothermia mild - resolved PCU/Tele initially, will transfer to Med/Surg. No arrhythmias noted since admission Input from CM appreciated (3) Metabolic encephalopathy: Plan: most likely of a urinary source. Has improved with pt probably approaching baseline status (4) Weakness: Plan: Likely malnourished/failure to thrive/deconditioned. Discussed with son, pt remains weak and high probability he would benefit from SNF rehab. Asked son to consider. CM updated PT/OT Refeeding labs Alb 2.2 (5) Fecal soiling due to fecal incontinence: Plan: Stool checked for c. dif colitis. Stool soft/formed. Stool was Gene pos, toxin neg (6) Acute UTI: Plan: dc'ed [place] reviewed with nursing, appears to be voiding fine studies most consistent with Prostatitis (7) DM2 (diabetes mellitus, type 2): Plan: Resume home metformin. Patient was to stop insulin after last hospitalization. Son takes care of medications, states still on insulin glu 120-187, will stop insulin dosing, concern for hypoglycemia and continue to monitor glucose (8) GERD (gastroesophageal reflux disease): Plan: Continue home pantoprazole (9) Cellulitis: Plan: Unlikely cellulitis, most likely contact dermatitis, will request wound care input Plan Code status: full DVT ppx: lovenox Q24 FENGI: 2L NS in ED, LR @ 125 x3L, carb consistent Dispo: transfered to med/surg CM: consulted for complex dispo needs Input of Phys Therapy appreciated Admission and Anticipated Discharge Date Admission Date: February 21, 2024 Subjective answering basic questions, obviously weak, denies diarrhea. Voice is progressively stronger today, appears less toxic, more alert. Oriented to person, place, time tele - NSR, no arrhythmias, Physical Exam Physical Exam: WDWN 74 yo WM in NAD HEENT unremarkable Neck supple Lungs clear, no rales, no wheezes, no rhonchi CV reg, w/o m, g Abd soft, nondistended, nl BS Ext no edema. stasis dermatitis changes of rt LE with evidence of acute dermatitis Results & Data Results & Data Vital Signs (Past 12 Hours) Vital Signs Temp Pulse Resp BP Pulse Ox O2 Del Method 02/24/24 07:30 36.5 C 64 16 94/58 L 91 Room Air 02/24/24 07:20 Room Air PG Care Time/CCT Total # of Minutes Spent Total Time Spent with Patient: Total time spent is greater than 50% in coordination of care (as documented) at patient's floor/unit and/or counseling patient: Coding Level of Care Code 10862 SUB INP/OBS CARE 2/35MIN Diagnoses Exposure to body fluid Z77.21 Hypothermia, initial encounter T68.XXXA Encounter type: initial encounter Metabolic encephalopathy G93.41 Weakness R53.1 Fecal soiling due to fecal incontinence R15.9 Acute UTI N39.0 Type 2 diabetes mellitus without complication, without long-term current use of insulin E11.9 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 insulin use: without mcfp use Diabetes mellitus complication status: without complication Gastroesophageal reflux disease, unspecified whether esophagitis present K21.9 Esophagitis presence: esophagitis presence not specified Cellulitis of left lower extremity L03.115 Site of cellulitis: extremity Site of cellulitis of extremity: lower extremity Laterality: right (2) Hypothermia Encounter type: initial encounter Qualified Code(s): T68.XXXA - Hypothermia, initial encounter (7) DM2 (diabetes mellitus, type 2) Diabetes mellitus mcfp insulin use: without mcfp use Diabetes mellitus complication status: without complication Qualified Code(s): E11.9 - Type 2 diabetes mellitus without complications (8) GERD (gastroesophageal reflux disease) Esophagitis presence: esophagitis presence not specified Qualified Code(s): K21.9 - Gastro-esophageal reflux disease without esophagitis (9) Cellulitis Site of cellulitis: extremity Site of cellulitis of extremity: lower extremity Laterality: right Qualified Code(s): L03.115 - Cellulitis of right lower limb
[2024-02-25 07:43] LABS: Basophils # (auto) 0.07 K/uL (0.00-0.20); Basophils % (auto) 0.9 %; Eosinophils # (auto) 0.36 K/uL (0.00-0.50); Eosinophils % (auto) 4.6 %; Hematocrit (blood only) 39.3 % (42.0-52.0); Hemoglobin 13.2 g/dl (14.0-18.0); Immature Granulocytes # (auto) 0.04 K/uL (0.01-0.20); Immature Granulocytes % (auto) 0.5 %; Lymphocytes % (auto) 33.5 %; Mean Corpuscular Hgb Conc 33.6 g/dL (32.0-36.0); Mean Corpuscular Volume 92.3 fL (80.0-100.0); Mean Platelet Volume 8.9 fL (9.4-12.4); Monocytes # (auto) 0.59 K/uL (0.11-0.59); Monocytes % (auto) 7.6 %; Neutrophils # (auto) 4.09 K/uL (1.40-6.50); Neutrophils % (auto) 52.9 %; Platelet Count 271 K/uL (130-400); RDW Coefficient of Variation 12.9 % (11.5-14.5); RDW Standard Deviation 43.8 fL (36.4-46.3); Red Blood Count 4.26 M/uL (4.70-6.10); White Blood Count 7.75 K/ul (4.8-10.8)
[2024-02-25 09:05] LABS: Albumin Globulin Ratio 0.9 (0.9-2); Albumin Level 2.8 gm/dl (3.4-5.0); BUN Creatinine Ratio 8.2 (10-20); Bilirubin,Total 0.6 mg/dl (0.2-1.0); Calcium 8.2 mg/dl (8.6-10.3); Est GFR (African American) 53.3 ml/min; Globulin 3.2 gm/dl (2.5-4.0); Magnesium 1.7 mg/dl (1.7-2.4); Phosphorus 2.3 mg/dl (2.5-4.9); Potassium 3.9 mmol/L (3.5-5.1)
--- NOTE | 2024-02-25 12:30 | Hospitalist Progress Note ---
Date of Service February 25, 2024 Assessment & Plan (1) Hypothermia: Plan: Now resolved. On admissionm,Patient found covered in stool and hypothermic on admission. Third hospitalization this year. Initial was with Proteus UTI 11/09-2023, then 11/28- with C.Diff. Uncertain as to family situation. CM consulted for dispo planning. Call placed to son to clarify/assess for home status. Call placed, son states that he checks glu 3x/day and notes glu is "up and down". (2) Exposure to body fluid: Plan: Patient does have open skin on the hands and irritated, excoriated skin on RLE. currently does not have typical Cellulitis appearance, more likely inflamed contact dermatitis from stool contact on top of chronic stasis dermatitis completed cefepime, now on Cipro PO Wound care for the excoriations on the skin (3) Metabolic encephalopathy: Plan: Now resolved. Patient is presently at baseline mentation (4) Weakness: Plan: Likely malnourished/failure to thrive/deconditioned. Discussed with son, pt remains weak and high probability he would benefit from SNF rehab. Asked son to consider. CM updated PT/OT Refeeding labs Alb 2.2 (5) Fecal soiling due to fecal incontinence: Plan: Stool checked for c. dif colitis. Stool soft/formed. Stool was Gene pos, toxin neg (6) Acute UTI: Plan: dc[place] reviewed with nursing, appears to be voiding fine studies most consistent with Prostatitis (7) DM2 (diabetes mellitus, type 2): Plan: Resume home metformin. Patient was to stop insulin after last hospitalization. Son takes care of medications, states still on insulin glu 120-187, will stop insulin dosing, concern for hypoglycemia and continue to monitor glucose (8) GERD (gastroesophageal reflux disease): Plan: Continue home pantoprazole (9) Cellulitis: Plan: Unlikely cellulitis, most likely contact dermatitis, will request wound care input (10) CARLO (acute kidney injury): Plan: Acute kidney failure Serum creatinine increased, could be prerenal Gentle hydration Recheck BMP transfer text Plan Code status: full DVT ppx: lovenox Q24 FENGI: 2L NS in ED, LR @ 125 x3L, carb consistent Dispo: may need snf CM: consulted for complex dispo needs Input of Phys Therapy appreciated Admission and Anticipated Discharge Date Admission Date: February 21, 2024 Subjective Patient seen and examined, still very weak but participating in physical therapy, ambulating with a walker Review of Systems Review of Systems: All systems reviewed are negative, apart from the ones contained in the history. Physical Exam Physical Exam: The patient is awake, alert and oriented 3, thin, frail HEENT--PERRL, EOMI, mucous membranes and oropharynx mildly dry Neck--supple. No JVD. No bruits. Thyroid normal, trachea midline, no adenopathy. Heart--normal S1 and S2. No murmurs, rubs or gallops. Lungs--clear bilaterally, no respiratory distress, no accessory muscle use. Abdomen--normal bowel sounds and soft. Extremities--no cyanosis or clubbing. No edema. poor muscle tone Dermatologic--normal skin turgor, normal color, no abnormal lymph nodes, no rash. Neurologic--cranial nerves II through XII grossly intact. Rheumatologic--normal range of motion. Psychiatric--normal affect. Results & Data Results & Data Vital Signs (Past 12 Hours) Vital Signs Temp Pulse Resp BP Pulse Ox O2 Del Method 02/25/24 07:57 98.1 F 54 L 18 96/57 L 98 Room Air PG Care Time/CCT Total # of Minutes Spent Total Time Spent with Patient: Total time spent is greater than 50% in coordination of care (as documented) at patient's floor/unit and/or counseling patient: Coding Level of Care Code 40875 SUB INP/OBS CARE 2/35MIN Diagnoses Hypothermia, initial encounter T68.XXXA Encounter type: initial encounter Exposure to body fluid Z77.21 Metabolic encephalopathy G93.41 Weakness R53.1 Fecal soiling due to fecal incontinence R15.9 Acute UTI N39.0 Type 2 diabetes mellitus without complication, without long-term current use of insulin E11.9 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 mellitus intermodal customer service insulin use: without mcc use Diabetes mellitus complication status: without complication Gastroesophageal reflux disease, unspecified whether esophagitis present K21.9 Esophagitis presence: esophagitis presence not specified Cellulitis of left lower extremity L03.115 Site of cellulitis: extremity Site of cellulitis of extremity: lower extremity Laterality: right CARLO (acute kidney injury) N17.9 Time Spent (min) 35 (1) Hypothermia Encounter type: initial encounter Qualified Code(s): T68.XXXA - Hypothermia, initial encounter (7) DM2 (diabetes mellitus, type 2) Diabetes mellitus mcc insulin use: without intermodal customer service use Diabetes mellitus complication status: without complication Qualified Code(s): E11.9 - Type 2 diabetes mellitus without complications (8) GERD (gastroesophageal reflux disease) Esophagitis presence: esophagitis presence not specified Qualified Code(s): K21.9 - Gastro-esophageal reflux disease without esophagitis (9) Cellulitis Site of cellulitis: extremity Site of cellulitis of extremity: lower extremity Laterality: right Qualified Code(s): L03.115 - Cellulitis of right lower limb
[2024-02-25] MEDS: EUCERIN CR 120 GM JAR EXT SCH (22:28)
[2024-02-26 07:37] LABS: Basophils # (auto) 0.07 K/uL (0.00-0.20); Eosinophils # (auto) 0.31 K/uL (0.00-0.50); Eosinophils % (auto) 4.4 %; Hematocrit (blood only) 39.4 % (42.0-52.0); Hemoglobin 13.2 g/dl (14.0-18.0); Immature Granulocytes # (auto) 0.05 K/uL (0.01-0.20); Immature Granulocytes % (auto) 0.7 %; Mean Corpuscular Hemoglobin 30.1 pg (25.0-34.0); Mean Corpuscular Hgb Conc 33.5 g/dL (32.0-36.0); Mean Platelet Volume 8.7 fL (9.4-12.4); Monocytes # (auto) 0.46 K/uL (0.11-0.59); Monocytes % (auto) 6.5 %; Neutrophils # (auto) 3.52 K/uL (1.40-6.50); Neutrophils % (auto) 49.4 %; Platelet Count 247 K/uL (130-400); RDW Coefficient of Variation 12.7 % (11.5-14.5); RDW Standard Deviation 42.2 fL (36.4-46.3); Red Blood Count 4.38 M/uL (4.70-6.10); White Blood Count 7.11 K/ul (4.8-10.8)
[2024-02-26 08:08] LABS: Albumin Globulin Ratio 0.9 (0.9-2); Albumin Level 2.7 gm/dl (3.4-5.0); BUN Creatinine Ratio 7.5 (10-20); Bilirubin,Total 0.5 mg/dl (0.2-1.0); Calcium 7.9 mg/dl (8.6-10.3); Creatinine Clr Calc Pharmacy 36.6 ml/min; Est GFR (African American) 47.8 ml/min; Est GFR (Non-African American) 41.2 ml/min; Globulin 3.1 gm/dl (2.5-4.0); Magnesium 1.5 mg/dl (1.7-2.4); Phosphorus 2.7 mg/dl (2.5-4.9); Potassium 3.7 mmol/L (3.5-5.1); Total Protein 5.8 gm/dl (6.0-8.3)
--- NOTE | 2024-02-26 10:39 | Hospitalist Progress Note ---
Date of Service February 26, 2024 Assessment & Plan (1) Hypothermia: Plan: Now resolved. On admissionm,Patient found covered in stool and hypothermic on admission. Third hospitalization this year. Initial was with Proteus UTI 11/09-2023, then 11/28- with C.Diff. Uncertain as to family situation. CM consulted for dispo planning. (2) Exposure to body fluid: Plan: Patient does have open skin on the hands and irritated, excoriated skin on RLE. currently does not have typical Cellulitis appearance, more likely inflamed contact dermatitis from stool contact on top of chronic stasis dermatitis completed cefepime, now on Cipro PO Wound care for the excoriations on the skin (3) Metabolic encephalopathy: Plan: Now resolved. Patient is presently at baseline mentation (4) Weakness: Plan: Likely malnourished/failure to thrive/deconditioned. Discussed with son, pt remains weak and high probability he would benefit from SNF rehab. Asked son to consider. CM updated PT/OT Refeeding labs Alb 2.2 (5) Fecal soiling due to fecal incontinence: Plan: Stool checked for c. dif colitis. Stool soft/formed. Stool was Gene pos, toxin neg (6) Acute UTI: Plan: [place] reviewed with nursing, appears to be voiding fine studies most consistent with Prostatitis (7) DM2 (diabetes mellitus, type 2): Plan: Resume home metformin. Patient was to stop insulin after last hospitalization. Son takes care of medications, states still on insulin glu 120-187, will stop insulin dosing, concern for hypoglycemia and continue to monitor glucose (8) GERD (gastroesophageal reflux disease): Plan: Continue home pantoprazole (9) Cellulitis: Plan: Unlikely cellulitis, most likely contact dermatitis, will request wound care in put (10) CARLO (acute kidney injury): Plan: Acute kidney failure Serum creatinine increased, could be prerenal Gentle hydration Recheck BMP transfer text (11) C. difficile colitis: Plan: Had C. difficile in November Admitted and was found to be soiled in feces. Repeat C. difficile toxin was negative however gene was positive No need for oral vanc No diarrhea in the hospital Plan Patient looks thin, social service may be needed to evaluate his home situation. Called the son, left a message Code status: full DVT ppx: lovenox Q24 Dispo: may need snf CM: consulted for complex dispo needs Input of Phys Therapy appreciated Admission and Anticipated Discharge Date Admission Date: February 21, 2024 Subjective Patient seen and examined, No new complaints today, wants to go home Review of Systems Review of Systems: All systems reviewed are negative, apart from the ones contained in the history. Physical Exam Physical Exam: The patient is awake, alert and oriented 3, thin, frail HEENT--PERRL, EOMI, mucous membranes and oropharynx mildly dry Neck--supple. No JVD. No bruits. Thyroid normal, trachea midline, no adenopathy. Heart--normal S1 and S2. No murmurs, rubs or gallops. Lungs--clear bilaterally, no respiratory distress, no accessory muscle use. Abdomen--normal bowel sounds and soft. Extremities--no cyanosis or clubbing. No edema. poor muscle tone Dermatologic--normal skin turgor, normal color, no abnormal lymph nodes, no rash. Neurologic--cranial nerves II through XII grossly intact. Rheumatologic--normal range of motion. Psychiatric--normal affect. Results & Data Results & Data Vital Signs (Past 12 Hours) Vital Signs Temp Pulse Resp BP Pulse Ox O2 Del Method 02/26/24 07:58 97.7 F 65 15 94/63 L 94 Room Air PG Care Time/CCT Total # of Minutes Spent Total Time Spent with Patient: Total time spent is greater than 50% in coordination of care (as documented) at patient's floor/unit and/or counseling patient: Coding Level of Care Code 68700 SUB INP/OBS CARE 2/35MIN Diagnoses Hypothermia, initial encounter T68.XXXA Encounter type: initial encounter Exposure to body fluid Z77.21 Metabolic encephalopathy G93.41 Weakness R53.1 Fecal soiling due to fecal incontinence R15.9 Acute UTI N39.0 Type 2 diabetes mellitus without complication, without long-term current use of insulin E11.9 Diabetes mellitus 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
--- NOTE | 2024-02-27 10:39 | Discharge Summary ---
Date of Service February 27, 2024 Admission HPI Per Admitting Provider Patient found down covered in his own stool and hypothermic. Brought in to the ED by ambulance, was not accompanied by son. Patient with mild hypothermia @ 34.4 C. Started on Angella Hugger. Covered empirically with CTX for ?LLE cellulitis. Patient HDS. Fluid resuscitated with 2L NS. Given Mg and calcium gluconate as well. Admission called for ongoing management. Patient seen at bedside. No memory of the incident. Lives at home with his son. Son manages his medications and day to day care. This is his third hospitalization since October. Was hospitalized for complicated UTI and then subsequently for c. dif colitis. Adequately treated with vancomycin. Patient reports hand pain and feeling cold. No fevers, headache, CP, SOB, abdominal pain, nausea, vomiting, blood in the urine, dysuria, or blood in the stool. Principal Diagnosis FTT, hypothermia-resolved Discharge Exam The patient is awake, alert and oriented 3, thin, frail HEENT--PERRL, EOMI, mucous membranes and oropharynx mildly dry Neck--supple. No JVD. No bruits. Thyroid normal, trachea midline, no adenopathy. Heart--normal S1 and S2. No murmurs, rubs or gallops. Lungs--clear bilaterally, no respiratory distress, no accessory muscle use. Abdomen--normal bowel sounds and soft. Extremities--no cyanosis or clubbing. No edema. poor muscle tone Dermatologic--normal skin turgor, normal color, no abnormal lymph nodes, no rash. Neurologic--cranial nerves II through XII grossly intact. Rheumatologic--normal range of motion. Psychiatric--normal affect. Discharge Data Allergies Allergy/AdvReac Type Severity Reaction Status Date / Time No Known Allergies Allergy Verified 02/21/24 19:04 Consultations 02/21/24 19:24 ED Decision to Admit Stat Ordered Studies 02/21/24 17:15 CT cervical spine wo con Stat CT head/brain wo con Stat Hospital Course (1) Hypothermia: Now resolved. On admissionm,Patient found covered in stool and hypothermic on admission. Third hospitalization this year. Initial was with Proteus UTI 11/09-2023, then 11/28- with C.Diff. Uncertain as to family situation. CM consulted for dispo planning. (2) Exposure to body fluid: Patient does have open skin on the hands and irritated, excoriated skin on RLE. currently does not have typical Cellulitis appearance, more likely inflamed contact dermatitis from stool contact on top of chronic stasis dermatitis completed cefepime, now on Cipro PO Wound care for the excoriations on the skin (3) Metabolic encephalopathy: Now resolved. Patient is presently at baseline mentation (4) Weakness: Likely malnourished/failure to thrive/deconditioned. Discussed with son, pt remains weak and high probability he would benefit from SNF rehab. Asked son to consider. CM updated PT/OT Refeeding labs Alb 2.2 (5) Fecal soiling due to fecal incontinence: Stool checked for c. dif colitis. Stool soft/formed. Stool was Gene pos, toxin neg (6) Acute UTI: [place] reviewed with nursing, appears to be voiding fine studies most consistent with Prostatitis (7) DM2 (diabetes mellitus, type 2): Resume home metformin. Patient was to stop insulin after last hospitalization. Son takes care of medications, states still on insulin glu 120-187, will stop insulin dosing, concern for hypoglycemia and continue to monitor glucose (8) GERD (gastroesophageal reflux disease): Continue home pantoprazole (9) Cellulitis: Unlikely cellulitis, most likely contact dermatitis, will request wound care in put (10) CARLO (acute kidney injury): Acute kidney failure Serum creatinine increased, could be prerenal Gentle hydration Recheck BMP transfer text (11) C. difficile colitis: Had C. difficile in November Admitted and was found to be soiled in feces. Repeat C. difficile toxin was negative however gene was positive No need for oral vanc No diarrhea in the hospital Plan Patient refused skilled or rehab and said he wants to go home. Will discharge home with home health. Code status: full DVT ppx: lovenox Q24 Dispo: may need snf CM: consulted for complex dispo needs Input of Phys Therapy appreciated Total Time Total Time Spent Total Time Spent (In Minutes): 35 Discharge Plan Discharge Items Patient Disposition: Home - Home Health Services Reason For Visit: FOUND DOWN Discharge Diagnosis: CARLO Activity: Resume your previous activity Non-emergency contact: Primary Care Provider Call non-emergency contact if: you have any medication questions Follow-up/Referrals: Jennifer Soni [Primary Care Provider] - 03/03/24 3:30 pm Diet: Regular Addtl Attending Provider Instructions: please follow up with your regular PCP Pending Studies at Discharge: No Stand-Alone Forms: My [facility], Smoking Cessation Medications and DC Order Prescriptions: New ciprofloxacin HCl 500 mg Tablet 500 mg PO BID 5 Days Qty: 10 0RF Continued potassium chloride 20 mEq tablet,ER particles/crystals 20 meq PO QAM magnesium oxide 400 mg (241.3 mg magnesium) tablet 400 mg PO AMHS metformin 1,000 mg Tablet 1,000 mg PO QPM gabapentin 300 mg Capsule 300 mg PO TID cholecalciferol (vitamin D3) [Vitamin D3] 125 mcg (5,000 unit) Tablet 125 mcg PO HS pantoprazole 20 mg tablet,delayed release (DR/EC) 20 mg PO QAM midodrine 2.5 mg tablet 2.5 mg PO TID insulin aspart U-100 [Novolog FlexPen U-100 Insulin] 100 unit/mL (3 mL) insulin pen 1 sliding scale dose subcut AC Rx Instructions: per son insulin glargine [Lantus Solostar U-100 Insulin] 100 unit/mL (3 mL) insulin pen 6 unit SUBCUT QAM Discharge Orders: Discharge Order (Routine); Ordered 02/27/24 Ordered By: Barbara Wong Admission Data Admit Date/Time: 02/21/24 20:10 Attending Provider: Barbara Wong Admit Provider: Radha Ibrahim Primary Care Provider: Jennifer Soni Other Providers: Ryan Earl Coding Level of Care Code 17805 INP/OBS DISCH >30 MIN Diagnoses Hypothermia, initial encounter T68.XXXA Encounter type: initial encounter Exposure to body fluid Z77.21 Metabolic encephalopathy G93.41 Weakness R53.1 Fecal soiling due to fecal incontinence R15.9 Acute UTI N39.0 Type 2 diabetes mellitus without complication, without long-term current use of insulin E11.9 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 difficile colitis A04.72 Time Spent (min) 35
== END 2024-02-27 17:00 | disposition home health service (06) | DRG 727 ==
LOC: ED 16:54 → 2E 20:10 → SUATTDRO 20:10 → 2E 20:49 → 3N 02-23 13:55

== ENCOUNTER 2024-02-28 14:48 | Inpatient (IN) ==
--- NOTE | 2024-02-28 15:45 | Emergency Department Note ---
Impression & Plan Hypoxia, Acute hypotension, CARLO (acute kidney injury), Elevated lactic acid level, Leukocytosis, Hypomagnesemia ED Provider Note HISTORY OF PRESENT ILLNESS: Patient is a 74-year-old male presenting with lethargy. Patient was just discharged from the hospital yesterday. He was found at home by home health nursing to be hypotensive and hypoxic. Patient initially refused transport with EMS, but he then became agreeable and was brought to the emergency department. Patient's son lives with him and wanted the patient transported to the ER. Patient does not wear any supplemental oxygen at baseline. Patient has no complaints on arrival to the ER. He denies any chest pain or shortness of breath. Denies any lightheadedness or dizziness. Denies any nausea or vomiting. ROS: as above PHYSICAL EXAM: Constitutional: Patient appears in no acute distress. HENT: Head: Normocephalic and atraumatic. Eyes: EOMI, PERRL Mouth/Throat: Mucous membranes moist. Neck: Trachea midline. Neck supple. Cardiovascular: RRR, No murmurs, rubs or gallops. Intact distal pulses. Pulmonary/Chest: No respiratory distress. Breath sounds clear and equal bilaterally. No wheezes or rales. On 2L NC. Abdominal: Abdomen soft, no tenderness, rebound or guarding. Musculoskeletal: No edema, tenderness or deformity noted. Skin: Warm and dry. No rash, erythema, pallor or cyanosis Psychiatric: Appropriate mood and affect for situation. Neurological: Alert and keenly responsive. CN II-XII grossly intact, moving all extremities equally and fully. MDM: - Vitals signs showed hypotension and hypoxia. Patient placed on 2 L nasal cannula. - History obtained via patient and EMS. History as above. - Chronic conditions affecting care: DM-2; GERD - Differential diagnoses include, but are not limited to: UTI; pneumonia; dehydration; electrolyte abnormality; ACS - Order placed for continuous cardiac monitoring. At this time, monitor showed rate of 87 bpm with normal sinus rhythm, per my interpretation. - External medical records reviewed. Discharge summary dated 02/27/2024 was reviewed. Patient was admitted at that time for hypothermia and failure to thrive. Per documentation, patient refused skilled or rehab placement and was discharged home - EKG interpreted by myself showed normal sinus rhythm. Rate 93 bpm. QT 370. No acute ischemic changes. - Laboratory workup interpreted by myself showed leukocytosis (WBC 12.12) with left shift; elevated lactate (2.1); CARLO (Cr 2.37); hypomagnesemia (Mg 1.6); normal troponin; normal procalcitonin - VBG normal - CXR negative for pneumonia, per my interpretation - Patient given 2L NS in ER. - Given 1g IV magnesium for electrolyte replacement - Blood cultures obtained - Discussion was had with rifle case repairer about patient's case and need for admission - Hospitalist consulted for admission - [facility] ASSESSMENT AND PLAN: Diagnosis: hypotension; hypoxia; CARLO; hypomagnesemia; elevated lactic acid level; leukocytosis Plan: admit Past Med/Surg History Problem List (Updated 02/28/24 @ 17:31 by Patsy eSwell MD) Hypomagnesemia (Acute) Leukocytosis (Acute) Elevated lactic acid level (Acute) CARLO (acute kidney injury) (Acute) Acute hypotension (Acute) Hypoxia (Acute) CARLO (acute kidney injury) Metabolic encephalopathy Exposure to body fluid Cellulitis (Acute) Fecal soiling due to fecal incontinence Acute dehydration (Acute) Acute hypotension (Acute) C. difficile colitis (Acute) Acute UTI (Acute) Encounter for pre-operative examination Right nephrolithiasis Weakness Low blood pressure DM2 (diabetes mellitus, type 2) GERD (gastroesophageal reflux disease) Esophageal candidiasis Urinary retention Phimosis Hydronephrosis, right Medical History Hypomagnesemia Septic shock Hypomagnesemia Acute kidney injury superimposed on CKD Sepsis due to urinary tract infection Metabolic encephalopathy 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 GERD (gastroesophageal reflux disease) Diabetes mellitus, type 2 Cataract upcoming surgery for correction Low blood pressure On Midodrine Chronic obstructive pulmonary disease Surgical History History of esophagogastroduodenoscopy (EGD) History of colonoscopy History of tooth extraction Family History Other No family history of adverse response to anesthesia Social History Smoking Status: Current every day smoker Tobacco Type: Cigarettes Cigarettes Per Day: 10; Second Hand Exposure: No; Do You Dip or Chew Tobacco: No; Hx Alcohol Use: No Hx Substance Use: No Preferred Language: Djiboutian Communication Ability: Effective Gray Tender Required: No Beliefs That Will Affect Care: None Current Living Situation: Family Current Living Situation Comment: lives with son Russ Feels Safe at Home: Yes Assistive Devices: Cane and Walker Allergies Allergies Allergy/AdvReac Type Severity Reaction Status Date / Time No Known Allergies Allergy Verified 02/28/24 17:00 Home Meds Home Medications Medication Instructions Recorded Confirmed magnesium oxide 400 mg (241.3 mg 400 mg PO AMHS 04/05/23 02/28/24 magnesium) tablet cholecalciferol (vitamin D3) 125 125 mcg PO HS 06/18/23 02/28/24 mcg (5,000 unit) tablet (Vitamin D3) gabapentin 300 mg capsule 300 mg PO TID 06/18/23 02/28/24 metformin 1,000 mg tablet 1,000 mg PO QPM 06/18/23 02/28/24 potassium chloride 20 mEq 20 meq PO QAM 11/09/23 02/28/24 tablet,extended release(part/cryst) insulin aspart U-100 100 unit/mL 1 sliding scale dose subcut AC 02/21/24 02/28/24 (3 mL) subcutaneous pen (Novolog FlexPen U-100 Insulin aspart) insulin glargine 100 unit/mL (3 6 unit subcut QAM 02/21/24 02/28/24 mL) subcutaneous pen (Lantus Solostar U-100 Insulin) midodrine 2.5 mg tablet 2.5 mg PO TID 02/21/24 02/28/24 pantoprazole 20 mg tablet,delayed 20 mg PO QAM 02/21/24 02/28/24 release Previous Rx's Medication Instructions Recorded ciprofloxacin HCl 500 mg tablet 500 mg PO BID 5 days #10 tabs 02/27/24 Results & Data (ED) Vital Signs Vital Signs - 24 hr 02/28/24 15:00 02/28/24 15:00 02/28/24 15:00 Temperature 36.4 C L Temperature Source Oral Pulse Rate 82 Pulse Rate [Apical] 87 Pulse Rate from SpO2 Sensor Respiratory Rate 20 20 Respiratory Effort / Characteristics Non-Labored Spontaneous Non-Labored Spontaneous Respiratory Depth Normal Normal Respiratory Pattern Regular Regular Blood Pressure 98/65 L Blood Pressure [Right Arm] 98/65 L Blood Pressure Mean 76 Blood Pressure Mean [Right Arm] 76 Pulse Oximetry 89 L 89 L 93 Oxygen Delivery Method Room Air Room Air Nasal Cannula Oxygen Flow Rate 2 Sepsis Recent Fever Within 48 Hours No Sepsis New/Unexplained Change in Mental Status No Sepsis Action Taken by Nursing No Action Required Oxygen Flow Rate - Titration 2 Pulse Oximetry Post Tiitration 93 02/28/24 15:40 02/28/24 15:49 02/28/24 15:50 Temperature Temperature Source Pulse Rate 86 87 Pulse Rate [Apical] Pulse Rate from SpO2 Sensor 85 86 Respiratory Rate 18 18 Respiratory Effort / Characteristics Respiratory Depth Respiratory Pattern Blood Pressure Blood Pressure [Right Arm] Blood Pressure Mean Blood Pressure Mean [Right Arm] Pulse Oximetry 92 92 Oxygen Delivery Method Nasal Cannula Oxygen Flow Rate Sepsis Recent Fever Within 48 Hours Sepsis New/Unexplained Change in Mental Status Sepsis Action Taken by Nursing Oxygen Flow Rate - Titration Pulse Oximetry Post Tiitration 02/28/24 16:00 02/28/24 16:00 02/28/24 16:10 Temperature Temperature Source Pulse Rate 79 81 Pulse Rate [Apical] Pulse Rate from SpO2 Sensor 79 82 Respiratory Rate 20 17 Respiratory Effort / Characteristics Respiratory Depth Respiratory Pattern Blood Pressure 103/66 Blood Pressure [Right Arm] Blood Pressure Mean 89 Blood Pressure Mean [Right Arm] Pulse Oximetry 93 93 Oxygen Delivery Method Oxygen Flow Rate Sepsis Recent Fever Within 48 Hours Sepsis New/Unexplained Change in Mental Status Sepsis Action Taken by Nursing Oxygen Flow Rate - Titration Pulse Oximetry Post Tiitration 02/28/24 16:30 Temperature Temperature Source Pulse Rate 82 Pulse Rate [Apical] Pulse Rate from SpO2 Sensor Respiratory Rate 12 Respiratory Effort / Characteristics Respiratory Depth Respiratory Pattern Blood Pressure 99/70 L Blood Pressure [Right Arm] Blood Pressure Mean 79 Blood Pressure Mean [Right Arm] Pulse Oximetry 96 Oxygen Delivery Method Nasal Cannula Oxygen Flow Rate 2 Sepsis Recent Fever Within 48 Hours Sepsis New/Unexplained Change in Mental Status Sepsis Action Taken by Nursing Oxygen Flow Rate - Titration Pulse Oximetry Post Tiitration Laboratory Data 02/28/24 14:59 02/28/24 14:59 Lab Results 02/28/24 02/28/24 Range/Units 14:59 16:00 WBC 12.12 H (4.8-10.8) K/ul RBC 4.71 (4.70-6.10) M/uL Hgb 14.5 (14.0-18.0) g/dl Hct 43.4 (42.0-52.0) % MCV 92.1 (80.0-100.0) fL MCH 30.8 (25.0-34.0) pg MCHC 33.4 (32.0-36.0) g/dL RDW Std Deviation 45.6 (36.4-46.3) fL RDW Coeff of Cassia 13.5 (11.5-14.5) % Plt Count 274 (130-400) K/uL MPV 9.1 L (9.4-12.4) fL Immature Gran % (Auto) 0.9 % Neut % (Auto) 64.1 % Lymph % (Auto) 23.7 % Cavalier % (Auto) 8.0 % Eos % (Auto) 2.6 % Baso % (Auto) 0.7 % Neut # (Auto) 7.76 H (1.40-6.50) K/uL Lymph # (Auto) 2.87 (1.20-3.40) K/uL Cavalier # (Auto) 0.97 H (0.11-0.59) K/uL Eos # (Auto) 0.32 (0.00-0.50) K/uL Baso # (Auto) 0.09 (0.00-0.20) K/uL Immature Gran # (Auto) 0.11 (0.01-0.20) K/uL PT 11.9 (9.0-12.0) Seconds INR 1.1 (0.9-1.1) VBG pH 7.38 (7.36-7.41) VBG pCO2 46 (38-50) mmHg VBG pO2 39 mmHg VBG HCO3 27 mmol/L VBG O2 Saturation 70.2 % VBG Base Excess 1.5 mEq/L Sodium 141 (136-145) mmol/L Potassium 3.9 (3.5-5.1) mmol/L Chloride 108 H (98-107) mmol/L Carbon Dioxide 26 (21-32) mmol/L Anion Gap 7 (3-11) BUN 25 H (6-23) mg/dl Creatinine 2.37 H (0.6-1.4) mg/dl Est Cr Clr Drug Dosing 25.4 ml/min Est GFR ( Amer) 29.9 ml/min Est GFR (Non-Af Amer) 25.8 ml/min BUN/Creatinine Ratio 10.5 (10-20) Glucose 206 H (70-99(Fasting)) mg/dl Lactate 2.1 H* (0.4-2.0) mmol/L Calcium 8.4 L (8.6-10.3) mg/dl Magnesium 1.6 L (1.7-2.4) mg/dl Total Bilirubin 0.8 (0.2-1.0) mg/dl Direct Bilirubin 0.2 (0-0.2) mg/dl AST 23 (13-39) U/L ALT 12 (7-52) U/L Alkaline Phosphatase 274 H (34-104) U/L Troponin I High Sens 9.7 (0-20) pg/ml Total Protein 6.4 (6.0-8.3) gm/dl Albumin 3.0 L (3.4-5.0) gm/dl Procalcitonin 0.16 (0-0.5) ng/ml Administered Medications Discontinued Medications Sodium Chloride (Nss) 1,000 mls @ 999 mls/hr IV .Q1H1M ISABELL Stop: 02/28/24 16:30 Last Admin: 02/28/24 16:03 Dose: 999 mls/hr Documented By: LAYO Sodium Chloride (Nss) 1,000 mls @ 999 mls/hr IV .Q1H1M ONE Stop: 02/28/24 17:20 Last Admin: 02/28/24 16:31 Dose: 999 mls/hr Documented By: [facility] Imaging Data Radiologist's Impression: Chest X-Ray 02/28/24 15:25 XR chest 1V portable HISTORY: 74 years-old Male Sepsis COMPARISON: 02/21/2024 TECHNIQUE: AP view chest FINDINGS: Cardiomediastinal and hilar silhouettes within normal limits. Emphysema with chronic interstitial coarsening. No pneumothorax, pleural effusion or airspace consolidation. Bones appear grossly intact. IMPRESSION: No acute process. ACT 112: Negative or not required by law. The above report was generated using voice recognition software. It may contain grammatical, syntax or spelling errors. Electronically signed by: Martin Newton M.D. 02/28/2024 4:02 PM Discharge Plan Visit Data Chief Complaint: Hypotension Stated Complaint: HYPOTENSION, ED Provider: Patsy Sewell Discharge Problem: Hypoxia, Acute hypotension, CARLO (acute kidney injury), Elevated lactic acid level, Leukocytosis, Hypomagnesemia Forms Stand Alone Forms: [facility] Prescriptions Prescriptions: No Action potassium chloride 20 mEq tablet,ER particles/crystals 20 meq PO QAM magnesium oxide 400 mg (241.3 mg magnesium) tablet 400 mg PO AMHS metformin 1,000 mg Tablet 1,000 mg PO QPM gabapentin 300 mg Capsule 300 mg PO TID cholecalciferol (vitamin D3) [Vitamin D3] 125 mcg (5,000 unit) Tablet 125 mcg PO HS pantoprazole 20 mg tablet,delayed release (DR/EC) 20 mg PO QAM midodrine 2.5 mg tablet 2.5 mg PO TID insulin aspart U-100 [Novolog FlexPen U-100 Insulin] 100 unit/mL (3 mL) insulin pen 1 sliding scale dose subcut AC Rx Instructions: per son insulin glargine [Lantus Solostar U-100 Insulin] 100 unit/mL (3 mL) insulin pen 6 unit SUBCUT QAM Rx Instructions: Can not get a hold of son to see when last had. ciprofloxacin HCl 500 mg Tablet 500 mg PO BID 5 Days Qty: 10 0RF Referrals Referrals: Jennifer Soni [Primary Care Provider] -
[2024-02-28 15:52] LABS: Basophils # (auto) 0.09 K/uL (0.00-0.20); Basophils % (auto) 0.7 %; Eosinophils # (auto) 0.32 K/uL (0.00-0.50); Eosinophils % (auto) 2.6 %; Hematocrit (blood only) 43.4 % (42.0-52.0); Hemoglobin 14.5 g/dl (14.0-18.0); Immature Granulocytes # (auto) 0.11 K/uL (0.01-0.20); Immature Granulocytes % (auto) 0.9 %; Lymphocytes # (auto) 2.87 K/uL (1.20-3.40); Lymphocytes % (auto) 23.7 %; Mean Corpuscular Hemoglobin 30.8 pg (25.0-34.0); Mean Corpuscular Hgb Conc 33.4 g/dL (32.0-36.0); Mean Corpuscular Volume 92.1 fL (80.0-100.0); Mean Platelet Volume 9.1 fL (9.4-12.4); Monocytes # (auto) 0.97 K/uL (0.11-0.59); Neutrophils # (auto) 7.76 K/uL (1.40-6.50); Neutrophils % (auto) 64.1 %; Platelet Count 274 K/uL (130-400); RDW Coefficient of Variation 13.5 % (11.5-14.5); RDW Standard Deviation 45.6 fL (36.4-46.3); Red Blood Count 4.71 M/uL (4.70-6.10); White Blood Count 12.12 K/ul (4.8-10.8)
[2024-02-28] MEDS: SODIUM CHLORIDE 0.9% 1,000 ML IV SCH (16:03)
--- NOTE | 2024-02-28 16:03 | XRay Report ---
XR chest 1V portable HISTORY: 74 years-old Male Sepsis COMPARISON: 02/21/2024 TECHNIQUE: AP view chest FINDINGS: Cardiomediastinal and hilar silhouettes within normal limits. Emphysema with chronic interstitial coa rsening. No pneumothorax, pleural effusion or airspace consolidation. Bones appear grossly intact. IMPRESSION: No acute process. ACT 112: Negative or not required by law. The above report was generated using voice recognition software. It may contain grammatical, syntax o r spelling errors. Electronically signed by: Martin Newton M.D. 02/28/2024 4:02 PM
[2024-02-28 16:05] LABS: BUN Creatinine Ratio 10.5 (10-20); Bilirubin Direct 0.2 mg/dl (0-0.2); Bilirubin,Total 0.8 mg/dl (0.2-1.0); Calcium 8.4 mg/dl (8.6-10.3); Creatinine Clr Calc Pharmacy 25.4 ml/min; Est GFR (African American) 29.9 ml/min; Est GFR (Non-African American) 25.8 ml/min; Magnesium 1.6 mg/dl (1.7-2.4); Potassium 3.9 mmol/L (3.5-5.1); Total Protein 6.4 gm/dl (6.0-8.3)
[2024-02-28 16:09] LABS: Base Excess VBG 1.5 mEq/L; HCO3 VBG 27 mmol/L; Oxygen Saturation VBG 70.2 %; PCO2 VBG 46 mmHg (38-50); PO2 VBG 39 mmHg; pH VBG 7.38 (7.36-7.41)
[2024-02-28 16:11] LABS: Troponin I High Sensitivity 9.7 pg/ml (0-20)
[2024-02-28 16:16] LABS: INR 1.1 (0.9-1.1); Prothrombin Time 11.9 Seconds (9.0-12.0)
[2024-02-28] MEDS: SODIUM CHLORIDE 0.9% 1,000 ML IV ONE (16:31)
[2024-02-28] MEDS: MAGNESIUM SULFATE / D5W 1 GM/100 ML BAG IV STA (18:09)
[2024-02-28] MEDS ORDERED: DEXTROSE 50% 50 ML SYRINGE IV PRN (20:55)
[2024-02-28] MEDS ORDERED: GLUCAGON FOR INJ 1 MG VIAL SQ PRN (20:55)
[2024-02-28] MEDS ORDERED: GLUCOSE 10 TAB/TUBE PO PRN (20:55)
[2024-02-28] MEDS ORDERED: CARBOHYDRATES FOR HYPOGLYCEMIA PO PRN (20:55)
[2024-02-28] MEDS ORDERED: GLUCOSE 40% GEL 15 GM TUBE PO PRN (20:55)
[2024-02-28] MEDS ORDERED: PHARMACY GLYCEMIC MGMT CONSULT PRN (20:55)
[2024-02-28] MEDS: CHOLECALCIFEROL 125 MCG (5,000 UNITS) TAB PO SCH (21:36)
[2024-02-28] MEDS: MAGNESIUM OXIDE 400 MG TAB PO SCH (21:36)
[2024-02-28] MEDS: GABAPENTIN 300 MG CAP PO SCH (21:37)
[2024-02-28] MEDS: CIPROFLOXACIN 500 MG TAB PO SCH (21:37)
[2024-02-28] MEDS: INSULIN ASPART PER UNIT CHARGE SC SCH (21:42)
--- NOTE | 2024-02-28 21:43 | History & Physical Report ---
Date of Service February 28, 2024 Assessment & Plan (1) CARLO (acute kidney injury): Plan: Suspect pre-renal given hypotension, Cr was increasing prior to discharge, not taken yesterday. Rehydrate overnight and repeat level in AM UA pending Need to establish stability prior to discharge off IV fluids (2) Acute hypotension: Plan: Continue midodrine, consider increasing if persistent Suspect due to not keeping up with his output (3) Hypoxia: Plan: CXR with no acute abnormality, previous on 2L at the start at last admission Likely just from poor inspiratory effort in setting of hypotension. Wean as patient improves. (4) Cellulitis: Plan: Continue previously prescribed ciprofloxacin, although not ideal in patient with c. diff appears to be improving on this Continue prophylactic vancomcycin while on ciprofloxacin and usually for 5-7 days after treatment course (5) Diabetes mellitus, type 2: Plan: Unknown HbA1C, order with AM labs Novolog: --Goal BSG Range: Low 110 mg/dL, High 140 mg/dL --Correction Factor: 45 mg/dL/unit --Carbohydrate ratio = 15 g/unit --BSGs ACHS if eating, q6h if npo Consult pharmacy for ongoing glycemic control (6) Acute dehydration: (7) Acute hypotension: Plan VTE Prophylaxis - heparin SQ 5000 units BID Diet - T2DM Disposition - admit to med/surg Admission and Anticipated Discharge Date Admission Date: February 28, 2024 History of Present Illness Chief Complaint: Hypotension Primary Care Provider: Jennifer Soni Randall Griffin is a 74 year old male who presents to the ER with difficulty getting up from his chair with hypotension at home after discharge yesterday. He was recently admitted from February 20 - 2023 due to failure to thrive, hypothermia and possible cellulitis. He declined rehab placement on discharge therefore was discharged home. He was treated with ciprofloxacin for possible cellulitis of his legs. He reports taking all medications prescribed. Per patient, he was seen by home health today who he reports gave him one chance to get off the chair and he was unable to do it therefore EMS were called. However he was also hypoxic (not on oxygen at discharge) with O2 sats 89% on room air and hypotensive therefore EMS were called to bring him back in. He reports the erythema of his legs has been getting much better and he has no specific complaints. No urine problems. No flank pain, fever or chills. Allergies Allergy/AdvReac Type Severity Reaction Status Date / Time No Known Allergies Allergy Verified 02/28/24 17:00 Home Medications Medication Instructions Recorded Confirmed Type magnesium oxide 400 mg (241.3 mg 400 mg PO AMHS 04/05/23 02/28/24 History magnesium) tablet cholecalciferol (vitamin D3) 125 125 mcg PO HS 06/18/23 02/28/24 History mcg (5,000 unit) tablet (Vitamin D3) gabapentin 300 mg capsule 300 mg PO TID 06/18/23 02/28/24 History metformin 1,000 mg tablet 1,000 mg PO QPM 06/18/23 02/28/24 History potassium chloride 20 mEq 20 meq PO QAM 11/09/23 02/28/24 History tablet,extended release(part/cryst) insulin aspart U-100 100 unit/mL 1 sliding scale dose subcut AC 02/21/24 02/28/24 History (3 mL) subcutaneous pen (Novolog FlexPen U-100 Insulin aspart) insulin glargine 100 unit/mL (3 6 unit subcut QAM 02/21/24 02/28/24 History mL) subcutaneous pen (Lantus Solostar U-100 Insulin) midodrine 2.5 mg tablet 2.5 mg PO TID 02/21/24 02/28/24 History pantoprazole 20 mg tablet,delayed 20 mg PO QAM 02/21/24 02/28/24 History release ciprofloxacin HCl 500 mg tablet 500 mg PO BID 5 days #10 tabs 02/27/24 02/28/24 Rx Past Med/Surg History Problem List (Updated 02/29/24 @ 06:03 by Sylvester Hall MD) Hypomagnesemia (Acute) Leukocytosis (Acute) Elevated lactic acid level (Acute) CARLO (acute kidney injury) (Acute) Acute hypotension (Acute) Hypoxia (Acute) CARLO (acute kidney injury) Metabolic encephalopathy Exposure to body fluid Cellulitis (Acute) Fecal soiling due to fecal incontinence Acute dehydration (Acute) Acute hypotension (Acute) Acute UTI (Acute) Encounter for pre-operative examination Right nephrolithiasis Weakness Low blood pressure DM2 (diabetes mellitus, type 2) GERD (gastroesophageal reflux disease) Esophageal candidiasis Urinary retention Phimosis Hydronephrosis, right Medical History (Updated 02/29/24 @ 06:03 by Sylvester Hall MD) C. difficile colitis Hypomagnesemia Septic shock Hypomagnesemia Acute kidney injury superimposed on CKD Sepsis due to urinary tract infection Metabolic encephalopathy 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 GERD (gastroesophageal reflux disease) Diabetes mellitus, type 2 Cataract upcoming surgery for correction Low blood pressure On Midodrine Chronic obstructive pulmonary disease Surgical History History of esophagogastroduodenoscopy (EGD) History of colonoscopy History of tooth extraction Family History Other No family history of adverse response to anesthesia Social History (Reviewed 02/22/24 @ : by Ata Alvarez MD) Smoking Status: Current every day smoker Tobacco Type: Cigarettes Cigarettes Per Day: 10; Second Hand Exposure: No; Do You Dip or Chew Tobacco: No; Tobacco Cessation Education Requested by Patient: No Hx Alcohol Use: No Hx Substance Use: No Preferred Language: Sammarinese Communication Ability: Effective 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 Beliefs That Will Affect Care: None Current Living Situation: Family Current Living Situation Comment: son Russ Other Information That Helps Us Care for You: No Feels Safe at Home: Yes Safety Concerns: Feels Safe At This Time Assistive Devices: Denture - Upper, Denture - Lower, Glasses and Wheelchair Review of Systems Review of Systems: All systems reviewed & are unremarkable except as noted in HPI & below Physical Exam Constitutional: + frail appearing and + malnourished; + not well nourished and no acute distress Eyes: PERRL, conjunctivae normal, anicteric sclerae ENMT: external ear and nose normal, oropharynx normal Respiratory: normal respiratory effort, lungs clear to auscultation Cardiovascular: RRR, no murmur, no edema Gastrointestinal (Abdomen): normal bowel sounds, soft, nontender, no hepatosplenomegaly Skin: Erythema and swelling of bilateral lower extremities appears improved from prior inpatient wound pictures Neurologic: moves all extremities and awake; not confused Psychiatric: A+Ox3, euthymic affect Genitourinary: no CVA tenderness Results & Data Results & Data Vital Signs (Past 12 Hours) Vital Signs Temp Pulse Pulse Resp BP BP Pulse Ox 02/28/24 20:00 79 13 02/28/24 19:50 79 13 02/28/24 19:40 84 14 02/28/24 19:31 113/77 02/28/24 19:31 81 14 02/28/24 19:30 94 H 02/28/24 19:20 77 13 02/28/24 19:10 75 15 96 02/28/24 19:00 101/62 02/28/24 19:00 75 15 94 02/28/24 18:50 73 94 02/28/24 18:40 75 98 02/28/24 18:30 109/66 02/28/24 18:30 81 95 02/28/24 18:20 89 96 02/28/24 18:10 80 96 02/28/24 18:00 80 97 02/28/24 18:00 103/66 02/28/24 17:50 81 97 02/28/24 17:40 86 97 02/28/24 17:30 86 96 02/28/24 17:30 99/68 L 02/28/24 17:20 90 98 02/28/24 17:10 87 15 02/28/24 17:00 95/63 L 02/28/24 17:00 76 18 02/28/24 16:30 82 12 99/70 L 96 02/28/24 16:10 81 17 93 02/28/24 16:00 79 20 93 02/28/24 16:00 103/66 02/28/24 15:50 85 02/28/24 15:50 87 18 92 02/28/24 15:49 86 18 92 02/28/24 15:40 02/28/24 15:00 87 20 98/65 L 93 02/28/24 15:00 89 L 02/28/24 15:00 36.4 C L 82 20 98/65 L 89 L O2 Del Method O2 Flow Rate 02/28/24 20:00 02/28/24 19:50 02/28/24 19:40 02/28/24 19:31 02/28/24 19:31 02/28/24 19:30 02/28/24 19:20 02/28/24 19:10 02/28/24 19:00 02/28/24 19:00 02/28/24 18:50 02/28/24 18:40 02/28/24 18:30 02/28/24 18:30 02/28/24 18:20 02/28/24 18:10 02/28/24 18:00 02/28/24 18:00 02/28/24 17:50 02/28/24 17:40 02/28/24 17:30 02/28/24 17:30 02/28/24 17:20 02/28/24 17:10 02/28/24 17:00 02/28/24 17:00 02/28/24 16:30 Nasal Cannula 2 02/28/24 16:10 02/28/24 16:00 02/28/24 16:00 02/28/24 15:50 02/28/24 15:50 02/28/24 15:49 02/28/24 15:40 Nasal Cannula 02/28/24 15:00 Nasal Cannula 2 02/28/24 15:00 Room Air 02/28/24 15:00 Room Air Laboratory Results Abnormal lab results 02/28/24 02/28/24 02/28/24 Range/Units 14:59 16:00 20:38 WBC 12.12 H (4.8-10.8) K/ul MPV 9.1 L (9.4-12.4) fL Neut # (Auto) 7.76 H (1.40-6.50) K/uL Baker # (Auto) 0.97 H (0.11-0.59) K/uL Chloride 108 H (98-107) mmol/L BUN 25 H (6-23) mg/dl Creatinine 2.37 H (0.6-1.4) mg/dl Glucose 206 H (70-99(Fasting)) mg/dl POC Glucose 162 H (70-99) mg/dl Lactate 2.1 H* (0.4-2.0) mmol/L Calcium 8.4 L (8.6-10.3) mg/dl Magnesium 1.6 L (1.7-2.4) mg/dl Alkaline Phosphatase 274 H (34-104) U/L Albumin 3.0 L (3.4-5.0) gm/dl Urine Protein (Negative) Ur Leukocyte Esterase (Negative) Urine WBC (Auto) (0-5) /hpf Diagnostic Findings XR chest 1V portable HISTORY: 74 years-old Male Sepsis COMPARISON: 02/21/2024 TECHNIQUE: AP view chest FINDINGS: Cardiomediastinal and hilar silhouettes within normal limits. Emphysema with chronic interstitial coarsening. No pneumothorax, pleural effusion or airspace consolidation. Bones appear grossly intact. IMPRESSION: No acute process. Medications Administered ER Medications Given: Normal saline 2L bolus Magnesium sulfate 1g IV ECG Rate (beats per minute): 93 Rhythm: normal sinus Findings: + LAFB Comparison ECG Date: from (February 21, 2024) Change: no significant change Code Status & VTE Plan Code Status Full VTE Prophylaxis Plan VTE Prophylaxis will be ordered: Yes PG Care Time/CCT Total # of Minutes Spent Total Time Spent with Patient: Total time spent is greater than 50% in coordination of care (as documented) at patient's floor/unit and/or counseling patient: Coding Level of Care Code 16837 INT INP/OBS CARE 255MIN Diagnoses CARLO (acute kidney injury) N17.9 Acute hypotension I95.9 Hypoxia R09.02 Cellulitis of left lower extremity L03.115 Laterality: right Site of cellulitis: extremity Site of cellulitis of extremity: lower extremity Diabetes mellitus, type 2 E11.9 Acute dehydration E86.0 (4) Cellulitis Laterality: right Site of cellulitis: extremity Site of cellulitis of extremity: lower extremity Qualified Code(s): L03.115 - Cellulitis of right lower limb
[2024-02-28] MEDS: MAGNESIUM SULFATE / D5W 1 GM/100 ML BAG IV ONE (23:04)
[2024-02-28] MEDS: HEPARIN SOD 5,000 UNIT/0.5 ML VIAL SQ SCH (23:11)
[2024-02-29] MEDS: LACTATED RINGER'S 1,000 ML IV SCH (01:01)
[2024-02-29 03:44] LABS: Appearance Urine Clear (Clear); Bacteria Urine Automated None Seen (None Seen); Bilirubin Urine Negative (Negative); Blood Urine Negative (Negative); Cast Urine Automated 0-2 /lpf (0-2); Color Urine Yellow; Epithelial Cell Urine Auto 0-2 /hpf (0-2); Glucose Urine UA Negative (Negative); Ketones Urine Negative (Negative); Leukocyte Esterase Urine 2+ (Negative); Nitrite Urine Negative (Negative); Protein Urine 1+ (Negative); RBC Urine Automated 0-2 /hpf (0-2); Urobilinogen Urine Negative (Negative); WBC Urine Automated >50 /hpf (0-5)
[2024-02-29 07:49] LABS: Albumin Globulin Ratio 0.9 (0.9-2); Albumin Level 2.7 gm/dl (3.4-5.0); Bilirubin,Total 0.6 mg/dl (0.2-1.0); Calcium 7.8 mg/dl (8.6-10.3); Creatinine Clr Calc Pharmacy 28.2 ml/min; Est GFR (African American) 36.7 ml/min; Est GFR (Non-African American) 31.7 ml/min; Globulin 2.9 gm/dl (2.5-4.0); Magnesium 1.9 mg/dl (1.7-2.4); Potassium 3.7 mmol/L (3.5-5.1); Total Protein 5.6 gm/dl (6.0-8.3)
[2024-02-29 07:56] LABS: Basophils # (auto) 0.07 K/uL (0.00-0.20); Basophils % (auto) 0.8 %; Eosinophils # (auto) 0.41 K/uL (0.00-0.50); Eosinophils % (auto) 4.5 %; Hematocrit (blood only) 39.7 % (42.0-52.0); Hemoglobin 13.1 g/dl (14.0-18.0); Immature Granulocytes # (auto) 0.05 K/uL (0.01-0.20); Immature Granulocytes % (auto) 0.5 %; Lymphocytes # (auto) 2.09 K/uL (1.20-3.40); Lymphocytes % (auto) 22.7 %; Mean Corpuscular Hemoglobin 30.8 pg (25.0-34.0); Mean Corpuscular Volume 93.2 fL (80.0-100.0); Mean Platelet Volume 9.3 fL (9.4-12.4); Monocytes # (auto) 0.66 K/uL (0.11-0.59); Monocytes % (auto) 7.2 %; Neutrophils # (auto) 5.91 K/uL (1.40-6.50); Neutrophils % (auto) 64.3 %; Platelet Count 230 K/uL (130-400); RDW Coefficient of Variation 13.6 % (11.5-14.5); RDW Standard Deviation 45.9 fL (36.4-46.3); Red Blood Count 4.26 M/uL (4.70-6.10); White Blood Count 9.19 K/ul (4.8-10.8)
[2024-02-29] MEDS ORDERED: MIDODRINE HCL 2.5 MG TAB PO SCH (08:00)
[2024-02-29 08:30] LABS: Estimated Average Glucose 180 mg/dl; Hemoglobin A1C 7.9 % (4.5-5.6)
[2024-02-29] MEDS: MIDODRINE HCL 2.5 MG TAB PO SCH (08:40)
[2024-02-29] MEDS: CHERRY SYRUP 5 ML UDP PO SCH (08:42)
[2024-02-29] MEDS: POTASSIUM CHLORIDE CRTAB 20 MEQ TABCR PO SCH (08:44)
[2024-02-29 08:45] LABS: D Dimer 1350 ug/L FEU (0-500)
[2024-02-29] MEDS: VANCOMYCIN HCL 125 MG/2.5ML SOLN PO SCH (08:45)
[2024-02-29] MEDS: OPTIRAY 320 125ml IV ONE (10:02)
--- NOTE | 2024-02-29 10:02 | Hospitalist Progress Note ---
Date of Service February 29, 2024 Assessment & Plan (1) CARLO (acute kidney injury): Plan: Continue IV fluids. Monitor intake and output. Serial labs (2) Acute hypotension: Plan: Midodrine has been uptitrated. Continue IV fluids. (3) Hypoxia: Plan: Acute hypoxic respiratory failure present on admission. D-dimer is markedly elevated. Chest CTA is pending. Currently requiring oxygen at 2 L/min per nasal cannula. Wean off as tolerated (4) Cellulitis: Plan: Left lower extremity. He is now on oral ciprofloxacin. (5) Diabetes mellitus, type 2: Plan: ADA diet. Sliding scale coverage. (6) Acute dehydration: Plan: IV fluids. Monitor intake and output Plan To be determined. OT and PT assessments requested Admission and Anticipated Discharge Date Admission Date: February 28, 2024 Subjective Alert and oriented. No distress. Midodrine dosage has been uptitrated for better blood pressure control. D-dimer is markedly elevated and chest CTA is pending. Urine and blood cultures pending. He remains on oral vancomycin and oral ciprofloxacin. Creatinine has improved from 2.3 down to 2.0. Serial labs ordered. He is currently on 2 L of oxygen per nasal cannula. Chest x-ray negative. EKG reveals normal sinus rhythm with no acute changes. Review of Systems 2 Review of Systems: Constitutional-no fever or chills ENT-no blurred vision, no double vision, no epistaxis, no sore throat Respiratory-no cough, no wheezing, no shortness of breath Cardiac-no palpitations, no chest pain, no syncope GI-no nausea, vomiting, diarrhea, melena, hematochezia -no urinary retention, no urinary incontinence, no dysuria, no hematuria Musculoskeletal-no joint pain, no muscle tenderness Skin-no bruising, no rashes, no pruritus Neuro-no isolated weakness, no paresthesia, no weakness Psych-no depression, no anxiety Physical Exam 2 Physical Exam: General-alert and oriented x3, no fever, no chills HEENT-head atraumatic and normocephalic, pupils equal and reactive to light, extraocular muscles intact Neck-no lymphadenopathy or thyromegaly, trachea midline Chest-clear to auscultation. No rales, wheezing or rhonchi Cardiac-regular rate and rhythm, normal S1 and S2 Abdomen-normal bowel sounds, no hepatosplenomegaly Extremities-no cyanosis, clubbing, or edema Neuro-cranial nerves II through XII intact, motor and sensory function within normal limits, strength symmetrical, no focal deficits Psych-normal affect, normal mood Results & Data Results & Data Vital Signs (Past 12 Hours) Vital Signs Temp Pulse Resp BP Pulse Ox O2 Del Method O2 Flow Rate 02/29/24 08:03 37.0 C 80 18 97/60 L 94 Nasal Cannula 2 Laboratory Results 02/29/24 06:52 02/29/24 06:52 PG Care Time/CCT Total # of Minutes Spent Total Time Spent with Patient: Total time spent is greater than 50% in coordination of care (as documented) at patient's floor/unit and/or counseling patient: Coding Level of Care Code 61058 SUB INP/OBS CARE 3/50MIN Diagnoses CARLO (acute kidney injury) N17.9 Acute hypotension I95.9 Hypoxia R09.02 Cellulitis of left lower extremity L03.115 Site of cellulitis: extremity Site of cellulitis of extremity: lower extremity Laterality: right Diabetes mellitus, type 2 E11.9 Acute dehydration E86.0 (4) Cellulitis Site of cellulitis: extremity Site of cellulitis of extremity: lower extremity Laterality: right Qualified Code(s): L03.115 - Cellulitis of right lower limb
--- NOTE | 2024-02-29 10:21 | Electrocardiogram Report ---
Test Reason : Blood Pressure : / mmHG Vent. Rate : 093 BPM Atrial Rate : 093 BPM P-R Int : 134 ms QRS Dur : 070 ms QT Int : 370 ms P-R-T Axes : 071 -64 069 degrees QTc Int : 460 ms Normal sinus rhythm Left anterior fascicular block Abnormal ECG When compared with ECG of 21-FEB-2024 17:02, No significant change was found Confirmed by Ruddy Weems ([id number]) on 02/29/2024 10:21:30 AM Referred By: Confirmed By:Ruddy Weems
--- NOTE | 2024-02-29 10:37 | CT Scan Report ---
CT angio chest PE protocol CT DOSE: 452.58 mGy.cm HISTORY: 74 years-old Male with hypoxia, elevated d-Dimer. Acute shortness of breath TECHNIQUE: Multiple CTA images of the chest were obtained after the intravenous administration of 68 ml Optiray. Coronal and sagittal MIPS were obtained from the axial data set and were submitted for r [place]. All measurements were obtained according to NASCET criteria. A dose lowering technique was ut ilized adhering to the principles of ALARA. COMPARISON: Chest radiograph 02/28/2024, chest CT 04/08/2019, CT abdomen and pelvis 04/11/2023 FINDINGS: CTA: Heart is mildly enlarged. No pericardial effusion. Extensive coronary artery calcifications. Atherosc lerosis of the aorta without aneurysm or dissection. Patency of the imaged great vessels. Unremarkabl e pulmonary artery. No pulmonary emboli identified, however there is suboptimal evaluation of the upp er lung zone segmental and subsegmental vessels secondary to contrast bolus timing. CT CHEST: No thyroid nodule or lymphadenopathy. There is mild nonspecific diffuse circumferential wall thickeni ng of the esophagus. No large pleural effusion or pneumothorax. Severe pulmonary emphysema. Chronic b enign partially calcified 10 mm nodule right middle lobe on image 101. Left lower lobe mucous pluggin g with patchy groundglass and consolidative left lower lobe opacities. Bronchial wall thickening sugg estive of bronchitis. Mild dependent subsegmental dependent right lower lobe atelectasis. Evidence of chronic pancreatitis. Partially imaged renal cysts. Hepatic steatosis. Nonspecific wall t hickening of the distal esophagus. Subacute appearing nondisplaced anterolateral right eighth and howard th rib fractures. IMPRESSION: 1. Severe emphysema with evidence of bronchitis. 2. Left lower lobe mucous plugging with patchy left lower lobe opacities suggestive of pneumonia. 3. No pulmonary emboli identified. 4. Subacute appearing nondisplaced lateral right eighth and ninth rib fractures. 5. Evidence of chronic pancreatitis. ACT 112: Negative or not required by law. The above report was generated using voice recognition software. It may contain grammatical, syntax o r spelling errors. Electronically signed by: Martin Newton M.D. 02/29/2024 10:35 AM
[2024-02-29] MEDS: PANTOprazole 40 MG TAB PO SCH (11:07)
[2024-03-01 09:07] LABS: BUN Creatinine Ratio 11.5 (10-20); Calcium 8.2 mg/dl (8.6-10.3); Est GFR (African American) 41.2 ml/min; Est GFR (Non-African American) 35.5 ml/min; Potassium 4.1 mmol/L (3.5-5.1)
[2024-03-01] MEDS: CIPROFLOXACIN 500 MG TAB PO SCH (10:27)
--- NOTE | 2024-03-01 14:21 | Hospitalist Progress Note ---
Date of Service March 01, 2024 Assessment & Plan (1) CARLO (acute kidney injury): Plan: Improved with IV fluids. Monitor intake and output. Serial labs. IV fluids were discontinued today, March 01 (2) Acute hypotension: Plan: Midodrine has been uptitrated. Improved overall. (3) Hypoxia: Plan: Acute hypoxic respiratory failure present on admission. D-dimer is markedly elevated. Chest CTA is negative for PE but he does have mucous plugging. Incentive spirometry was ordered but found still in the plastic bag today. I gave him instructions on proper use. Hopefully this will help. Currently requiring oxygen at 2 L/min per nasal cannula. Wean off as tolerated (4) Cellulitis: Plan: Left lower extremity. He is now on oral ciprofloxacin. (5) Diabetes mellitus, type 2: Plan: ADA diet. Sliding scale coverage. (6) Acute dehydration: Plan: Resolved with IV fluids. Plan OT and PT both recommend rehab placement. His son states that he was most recently at [facility]. Admission and Anticipated Discharge Date Admission Date: February 28, 2024 Subjective Alert and oriented. No distress. The incentive spirometry that I ordered yesterday was found on his tray table still in a plastic bag. I opened it and gave him proper instructions on how to use it. Creatinine has improved to 1.8. I gave his son a call by phone and updated him. His son states that he was most recently at [facility] in the [place] area. OT and PT have recommended rehab placement. Review of Systems 2 Review of Systems: Constitutional-no fever or chills ENT-no blurred vision, no double vision, no epistaxis, no sore throat Respiratory-no cough, no wheezing, no shortness of breath Cardiac-no palpitations, no chest pain, no syncope GI-no nausea, vomiting, diarrhea, melena, hematochezia -no urinary retention, no urinary incontinence, no dysuria, no hematuria Musculoskeletal-no joint pain, no muscle tenderness Skin-no bruising, no rashes, no pruritus Neuro-no isolated weakness, no paresthesia, no weakness Psych-no depression, no anxiety Physical Exam 2 Physical Exam: General-alert and oriented x3, no fever, no chills HEENT-head atraumatic and normocephalic, pupils equal and reactive to light, extraocular muscles intact Neck-no lymphadenopathy or thyromegaly, trachea midline Chest-clear to auscultation. No rales, wheezing or rhonchi Cardiac-regular rate and rhythm, normal S1 and S2 Abdomen-normal bowel sounds, no hepatosplenomegaly Extremities-no cyanosis, clubbing, or edema Neuro-cranial nerves II through XII intact, motor and sensory function within normal limits, strength symmetrical, no focal deficits Psych-normal affect, normal mood Results & Data Results & Data Vital Signs (Past 12 Hours) Vital Signs Temp Pulse Resp BP Pulse Ox 03/01/24 13:51 91 03/01/24 07:47 37.0 C 85 18 101/60 Laboratory Results 02/29/24 06:52 03/01/24 08:34 PG Care Time/CCT Total # of Minutes Spent Total Time Spent with Patient: Total time spent is greater than 50% in coordination of care (as documented) at patient's floor/unit and/or counseling patient: Coding Level of Care Code 12888 SUB INP/OBS CARE 3/50MIN Diagnoses CARLO (acute kidney injury) N17.9 Acute hypotension I95.9 Hypoxia R09.02 Cellulitis of left lower extremity L03.115 Site of cellulitis: extremity Site of cellulitis of extremity: lower extremity Laterality: right Diabetes mellitus, type 2 E11.9 Acute dehydration E86.0 (4) Cellulitis Site of cellulitis: extremity Site of cellulitis of extremity: lower extremity Laterality: right Qualified Code(s): L03.115 - Cellulitis of right lower limb
[2024-03-02 07:22] LABS: BUN Creatinine Ratio 9.8 (10-20); Calcium 8.1 mg/dl (8.6-10.3); Creatinine Clr Calc Pharmacy 26.3 ml/min; Est GFR (African American) 33.9 ml/min; Est GFR (Non-African American) 29.2 ml/min; Potassium 4.2 mmol/L (3.5-5.1)
--- NOTE | 2024-03-02 13:09 | Ultrasound Report ---
US renal/blad retro comp CLINICAL HISTORY: Acute kidney injury TECHNIQUE: Multiple sonographic real-time images of the kidneys and bladder were obtained. COMPARISON: Comparison is made to CT abdomen pelvis 04/11/2023 FINDINGS: The right kidney measures 11.6 cm in length, and the left kidney measures 12 cm in length. The right kidney is normal in size, contour, cortical thickness, and echogenicity. No hydronephrosis is identified. Previously noted upper pole cyst is not seen on today's exam. The left kidney is normal in size, contour, cortical thickness and echogenicity. No hydronephrosis i s identified. A cyst is noted measuring 5.3 cm. Bladder wall is thickened and trabeculated compatible with chronic outlet obstruction. No large intra luminal mass is seen. IMPRESSION: No evidence of hydronephrosis. Chronic bladder thickening likely due to chronic bladder outlet obstru ction. ACT 112: Negative or not required by law. Electronically signed by: Jamar Lopez M.D. 03/02/2024 1:07 PM
[2024-03-02] MEDS: PIPERACILLIN/TAZOBACTAM 4.5 GM in DEXTROSE 5% MINI-B 100 ML IV ONE (13:46)
[2024-03-02] MEDS: LACTATED RINGER'S 1,000 ML IV SCH (13:46)
[2024-03-02] MEDS: PIPERACILLIN/TAZOBACTAM 4.5 GM in DEXTROSE 5% MINI-B 100 ML IV SCH (18:04)
--- NOTE | 2024-03-02 18:16 | Hospitalist Progress Note ---
Date of Service March 02, 2024 Assessment & Plan (1) CARLO (acute kidney injury): Plan: Presented with generalized weakness after discharge from hospital the day prior after a lengthy hospital stay for cellulitis of leg and after being found down. CARLO here Improved with IV fluids initially but now tea blender rising again back up to 2.14, BUN normal at 21 He does have a h/o kidney stones. UA here is positive for WBCs but urine cx mixed teddy-on antibiotics for UTI with Cipro Check renal US--> no hydro or obstruction Also had IV contrast for CTA Chest on 02/28--> could be element of AMY Was also somewhat hypotensive--> perhaps ATN. UA no casts however Will give 1 L LR Hold home potassium Follow BMP in AM Consider Nephro consult if not improving (2) Pneumonia: Plan: With LLL PNA seen on CTA Chest Given recent hospitalization and emphysema, higher risk for Gram negative PNA, also could have aspiration given he was previously found down for unknown length of time--> switch Cipro to Zosyn No longer hypoxic Giving prophylactic Vanco po while on antibiotics given he is C. diff gene positive but toxin neg from last admission (3) Acute hypotension: Plan: Midodrine has been uptitrated to 5mg tid and this is improved (4) Hypoxia: Plan: Acute hypoxic respiratory failure present on admission. D-dimer is markedly elevated. Chest CTA is negative for PE but he does have mucous plugging and PNA Now weaned off O2 Continue Incentive spirometry Starting Zosyn Follow (5) Cellulitis: Plan: Left lower extremity. He is now on oral ciprofloxacin and legs appear dry with chronic venous stasis changes add ammonium lactate lotion changing Cipro to Zosyn but overall legs do not appear to be infected anymore (6) Diabetes mellitus, type 2: Plan: HgbA1C 7.9% here Hold metformin from home Is on Lantus at home but not receiving here-will resume is also on gabapentin for neuropathy ADA diet. Sliding scale coverage. (7) GERD (gastroesophageal reflux disease): Plan: with diffuse thickening of esophagus seen on CTA Chest which could be from esophagitis COntinue PPI Plan DVT proph-heparin SQ Dispo-OT and PT both recommend rehab placement. Pt adamant that he will return home w/ home health Admission and Anticipated Discharge Date Admission Date: February 28, 2024 Subjective Pt reports feeling ok. Not really coughing. Is making urine. Reports his legs are quite dry and "look bad." No diarrhea Physical Exam Constitutional: WD/WN, vitals as above Respiratory: normal respiratory effort; no cough Auscultation: + crackles (right base); no rhonchi and no wheezes Cardiovascular: RRR, no murmur, no edema Gastrointestinal (Abdomen): normal bowel sounds, soft, nontender, no hepa tosplenomegaly Skin: + dry skin (very dry, flaky skin bilat l egs) and + erythema (R>L legs ) Psychiatric: A+Ox3, euthymic affect Results & Data Results & Data Vital Signs (Past 12 Hours) Vital Signs Temp Pulse Resp BP Pulse Ox O2 Del Method 03/02/24 13:53 36.3 C L 58 L 20 109/66 95 Room Air 03/02/24 13:45 36.4 C L 62 18 109/64 97 Room Air 03/02/24 08:53 Room Air 03/02/24 07:38 37.0 C 71 20 102/84 91 Room Air Laboratory Results BMP, Urine cx reviewed, Blood cxs reviewed Diagnostic Findings Renal US reviewed PG Care Time/CCT Total # of Minutes Spent Total Time Spent with Patient: Total time spent is greater than 50% in coordination of care (as documented) at patient's floor/unit and/or counseling patient: Coding Level of Care Code 22655 SUB INP/OBS CARE 2/35MIN Diagnoses CARLO (acute kidney injury) N17.9 Pneumonia J18.9 Acute hypotension I95.9 Hypoxia R09.02 Cellulitis of left lower extremity L03.115 Laterality: right Site of cellulitis: extremity Site of cellulitis of extremity: lower extremity Diabetes mellitus, type 2 E11.9 Gastroesophageal reflux disease, unspecified whether esophagitis present K21.9 Esophagitis presence: esophagitis presence not specified (5) Cellulitis Laterality: right Site of cellulitis: extremity Site of cellulitis of extremity: lower extremity Qualified Code(s): L03.115 - Cellulitis of right lower limb (7) GERD (gastroesophageal reflux disease) Esophagitis presence: esophagitis presence not specified Qualified Code(s): K21.9 - Gastro-esophageal reflux disease without esophagitis
[2024-03-02] MEDS: AMMONIUM LACTATE 12% LOTION 225 GM BTL EXT SCH (20:50)
[2024-03-03 07:03] LABS: BUN Creatinine Ratio 8.5 (10-20); Calcium 7.9 mg/dl (8.6-10.3); Creatinine Clr Calc Pharmacy 24.1 ml/min; Est GFR (African American) 30.4 ml/min; Est GFR (Non-African American) 26.2 ml/min; Potassium 3.7 mmol/L (3.5-5.1)
[2024-03-03] MEDS: GABAPENTIN 100 MG CAP PO SCH (09:17)
[2024-03-03] MEDS: LANTUS PER UNIT CHARGE SQ SCH (09:24)
--- NOTE | 2024-03-03 13:39 | Nephrology Consultation ---
Date of Consultation March 03, 2024 Assessment & Plan (1) CARLO (acute kidney injury): (2) Acute hypotension: (3) Cellulitis: (4) DM2 (diabetes mellitus, type 2): Plan 74 yo male with stage 3a CKD, baseline creatinine 1.2-1.4 mg/dl, admitted with generalized weakness, failure to thrive, lower extremity cellulitis, treated with Zosyn and ciprofloxacin. Has chronic hypertension and after discharge patient became generally weak and hypotensive and admitted within a day this la st 10 days hospitalization, kidney function has been slowly worsening, creatinine up to 2.4, electrolyte acceptable. Renal ultrasound unremarkable. Urinalysis with pyuria without bacteriuria which has been chronic. Has been hypotensive, on midodrine 5 mg 3 times daily, blood pressures staying relatively stable although low. Acute kidney injury most likely hemodynamically mediated with hypotension, and recent IV contrast exposure. Although there is possibility for acute interstitial nephritis with pyuria without bacteriuria and recent multiple antibiotic exposure, pyuria has been chronic with prior history of recurrent urinary tract infection and ureteral stricture. Low-grade proteinuria noted with hypoalbuminemia. Volume status seems acceptable, clinically not volume depleted, overall almost 5 L positive since admission --Continue to monitor kidney function and electrolytes, hold discharge until see clear improvement in kidney function. --Encourage p.o. intake --Continue midodrine 5 mg 3 times daily, avoid hypotension. --Considering intermittent proteinuria, hypoalbuminemia and advanced age as well as history of failure to thrive, will check SPEP, UPEP Thank you for allowing me to participate in your patient's care. It was a pleasure to see Randall. History of Present Illness Reason for Consultation: Acute kidney injury. Attending Physician: Bonny Humphries MD History of Present Illness Mr. Randall Griffin is a 74 year old male with PMH of T2DM, chronic hypotension , on Midodrine, COPD admitted with CARLO, generalized weakness and hypotension. Nephrology consult was requested for management of CARLO. EMR records are reviewed in detail during patient's visit. Randall was recently admitted from February 20 - 2023 due to failure to thrive, hypothermia and possible LE cellulitis and was treated with ciprofloxacin. During the initial appointment he was going to go to rehab however he declined and was discharged on 02/27/2024. Day after discharge as he was on to be lethargic, was hypotensive and hypoxic on room air and was unable to get up from sitting, when home health visited him. EMS was called and he was then referred back to ER. At baseline he has mild CKD, baseline creatinine 1.2-1.4 mg/dl. On admission admitted and, his kidney function was relatively baseline but over the next few days he CARLO and creatinine peaked at 2.0 prior to discharge. On admission on 02/28/2024 his creatinine was 2.0 mg/dl. He was continued on ciprofloxacin and Zosyn and started on oral vancomycin with prior history of C. difficile colitis. Had CTA on 02/29/2024 showing bronchitis, severe emphysema and possible left lower lobe pneumonia. Urinalysis was negative before hematuria or bacteriuria but noted to have low-grade proteinuria and pyuria with >50 WBCs /HPF. Creatinine has been slowly increasing over last few days, up to 2.4 today. Albumin has been low at 2.5-3.6. Electrolytes are acceptable. Has been having decent urine output, his overall total about 5 L positive since a dmission. Renal ultrasound without sandhya hydronephrosis but noted to have chronic bladder outlet obstructive changes. Has history of low blood pressure for years, has been on midodrine 5 mg p.o. cu rrent active smoker. Has type 2 diabetes, recent A1c 7.9, on metformin and insulin. Has history of recurrent urinary tract infection with ureteral stricture and prior history of hydronephrosis. He reports feeling well today, denies shortness of breath, chest pain, fever or chills. Denies dysuria, gross hematuria and nocturia. Allergies Allergy/AdvReac Type Severity Reaction Status Date / Time No Known Allergies Allergy Verified 02/28/24 17:00 Home Medications Medication Instructions Recorded Confirmed Type magnesium oxide 400 mg (241.3 mg 400 mg PO AMHS 04/05/23 02/28/24 History magnesium) tablet cholecalciferol (vitamin D3) 125 125 mcg PO HS 06/18/23 02/28/24 History mcg (5,000 unit) tablet (Vitamin D3) gabapentin 300 mg capsule 300 mg PO TID 06/18/23 02/28/24 History metformin 1,000 mg tablet 1,000 mg PO QPM 06/18/23 02/28/24 History potassium chloride 20 mEq 20 meq PO QAM 11/09/23 02/28/24 History tablet,extended release(part/cryst) insulin aspart U-100 100 unit/mL 1 sliding scale dose subcut AC 02/21/24 02/28/24 History (3 mL) subcutaneous pen (Novolog FlexPen U-100 Insulin aspart) insulin glargine 100 unit/mL (3 6 unit subcut QAM 02/21/24 02/28/24 History mL) subcutaneous pen (Lantus Solostar U-100 Insulin) midodrine 2.5 mg tablet 2.5 mg PO TID 02/21/24 02/28/24 History pantoprazole 20 mg tablet,delayed 20 mg PO QAM 02/21/24 02/28/24 History release ciprofloxacin HCl 500 mg tablet 500 mg PO BID 5 days #10 tabs 02/27/24 02/28/24 Rx Patient History Medical History (Updated 03/03/24 @ 07:26 by Bonny Humphries MD) C. difficile colitis Hypomagnesemia Septic shock Hypomagnesemia Acute kidney injury superimposed on CKD Sepsis due to urinary tract infection Metabolic encephalopathy 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 GERD (gastroesophageal reflux disease) Diabetes mellitus, type 2 Cataract upcoming surgery for correction Low blood pressure On Midodrine Chronic obstructive pulmonary disease Surgical History History of esophagogastroduodenoscopy (EGD) History of colonoscopy History of tooth extraction Family History Other No family history of adverse response to anesthesia Social History Smoking Status: Current every day smoker Tobacco Type: Cigarettes Cigarettes Per Day: 10; Second Hand Exposure: No; Do You Dip or Chew Tobacco: No; Tobacco Cessation Education Requested by Patient: No Hx Alcohol Use: No Hx Substance Use: No Preferred Language: Congolese Communication Ability: Effective Personal Assistant Required: No Beliefs That Will Affect Care: None Current Living Situation: Family Current Living Situation Comment: [facility] Other Information That Helps Us Care for You: No Feels Safe at Home: Yes Safety Concerns: Feels Safe At This Time Assistive Devices: Cane and Walker Review of Systems Review of Systems: Detailed review of system was done and pertinent positives and negatives were mentioned above. Physical Exam Constitutional: WD/WN, vitals as above no acute distress Eyes: + anicteric sclerae Neck: normal visual inspection Respiratory: no respiratory distress Cardiovascular: Rate/Rhythm: regular rate and regular rhythm Heart Sounds: normal S1 and normal S2 Extremities: no edema Gastrointestinal (Abdomen): Inspection/Auscultation: abdomen normal to inspection Percussion/Palpation: abdomen soft; abdomen nontender Musculoskeletal: Extremities: extremities normal to inspection Skin: mild erythema b/l LE Neurologic: no focal motor deficits Psychiatric: Orientation: alert and oriented x 3 Affect: euthymic affect Results & Data Vital Signs (Past 12 Hours) Vital Signs Temp Pulse Resp BP Pulse Ox O2 Del Method 03/03/24 12:36 69 101/69 03/03/24 10:20 36.2 C L 69 17 106/67 96 Room Air 03/03/24 09:45 Room Air 03/03/24 07:28 36.8 C 67 18 92/53 L 93 Room Air PG Care Time/CCT Total # of Minutes Spent Total Time Spent with Patient: Total time spent is greater than 50% in coordination of care (as documented) at patient's floor/unit and/or counseling patient: Coding Level of Care Code 90526 INT INP/OBS CARE 3MIN Diagnoses CARLO (acute kidney injury) N17.9 Acute hypotension I95.9 Cellulitis of left lower extremity L03.115 Site of cellulitis: extremity Site of cellulitis of extremity: lower extremity Laterality: right Type 2 diabetes mellitus without complication, without long-term current use of insulin E11.9 Diabetes mellitus prison insulin use: without intermodal truck driver use Diabetes mellitus complication status: without complication (3) Cellulitis Site of cellulitis: extremity Site of cellulitis of extremity: lower extremity Laterality: right Qualified Code(s): L03.115 - Cellulitis of right lower limb (4) DM2 (diabetes mellitus, type 2) Diabetes mellitus prison insulin use: without intermodal truck driver use Diabetes mellitus complication status: without complication Qualified Code(s): E11.9 - Type 2 diabetes mellitus without complications
[2024-03-03 16:18] LABS: Appearance Urine Cloudy (Clear); Bacteria Urine Automated None Seen (None Seen); Bilirubin Urine Negative (Negative); Blood Urine 1+ (Negative); Cast Urine Automated 0-2 /lpf (0-2); Color Urine Yellow; Epithelial Cell Urine Auto 0-2 /hpf (0-2); Glucose Urine UA Negative (Negative); Ketones Urine Negative (Negative); Leukocyte Esterase Urine 3+ (Negative); Nitrite Urine Negative (Negative); Protein Urine Trace (Negative); RBC Urine Automated 0-2 /hpf (0-2); Specific Gravity Urine 1.009 (1.000-1.030); Urobilinogen Urine Negative (Negative); WBC Urine Automated >50 /hpf (0-5); pH Urine 6.5 (4.5-7.5)
--- NOTE | 2024-03-03 17:16 | Hospitalist Progress Note ---
Date of Service March 03, 2024 Assessment & Plan (1) CARLO (acute kidney injury): Plan: Presented with generalized weakness after discharge from hospital the day prior after a lengthy hospital stay for cellulitis of leg and after being found down. 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 UA with chronic pyuria but urine cx mixed teddy Checked renal US--> no hydro or obstruction Also had IV contrast for CTA Chest on 02/28--> could be element of AMY Was also somewhat hypotensive--> perhaps ATN. UA no casts however Appreciate nephrology consultation-checking SPEP, UPEP, free kappa light chains, suspect volume mediated renal injury and perhaps contrast-induced nephropathy Continue to hold home potassium Follow BMP in AM Follow urine output (2) Pneumonia: Plan: With LLL PNA seen on CTA Chest Given recent hospitalization and emphysema, higher risk for Gram negative PNA, also could have aspiration given he was previously found down for unknown length of time--> switched Cipro to Zosyn on 03/02 No longer hypoxic Giving prophylactic Vanco po while on antibiotics given he is C. diff gene pos itive but toxin neg from last admission (3) Acute hypotension: Plan: Midodrine has been uptitrated to 5mg tid and this is improved (4) Hypoxia: Plan: Acute hypoxic respiratory failure present on admission. D-dimer is markedly elevated. Chest CTA is negative for PE but he does have mucous plugging and PNA Now weaned off O2 Continue Incentive spirometry Continue antibiotics for pneumonia Follow (5) Cellulitis: Plan: Left lower extremity. He was treated with oral ciprofloxacin and legs appear dry with chronic venous stasis changes, erythema improved, no further acute infection Added ammonium lactate lotion (6) Diabetes mellitus, type 2: Plan: HgbA1C 7.9% here Holding metformin from home Continue Lantus home dose is also on gabapentin for neuropathy ADA diet. Sliding scale coverage. (7) GERD (gastroesophageal reflux disease): Plan: with diffuse thickening of esophagus seen on CTA Chest which could be from esophagitis COntinue PPI Plan Fall-patient had a fall while attempting to ambulate to the bathroom himself on 03/03. He has a contusion to the right mid back with mild pain, no need for imaging at this point. Monitor. He is declining to take Tylenol for pain Strongly recommended rehab placement but he continues to adamantly decline to go to rehab. I offered to call his son to discuss his care and the patient does not want me to he reports that he will call his son on his own. DVT proph-heparin SQ Dispo-OT and PT both recommend rehab placement. Pt adamant that he will return home w/ home health Admission and Anticipated Discharge Date Admission Date: February 28, 2024 Subjective Pt had a fall from standing height today when he got out of bed and tried to go to the bathroom unassisted. He denies passing out but his legs R>L gave out on him and he went down quickly, landing on his right mid back. he reports the back of his head "glanced off" the footboard of the bed. He has some 4/10 in severity right mid back pain but denies headache or CP, no SOB, no abd pain. He declines to have tylenol even for pain control. He continues to decline to go to short term rehab. Physical Exam Constitutional: WD/WN, vitals as above Respiratory: normal respiratory effort, lungs clear to auscultation Cardiovascular: RRR, no murmur, no edema Gastrointestinal (Abdomen): normal bowel sounds, soft, nontender, no hepatosplenomegaly Musculoskeletal: right mid back in paraspinous muscle region of lower thoracic and lumbar spine minimal +TTP, no hematoma or bruising, no lacerations Skin: + dry skin (improved with lotion on legs ) and + erythema (very mild R>L legs ) Psychiatric: A+Ox3, euthymic affect Results & Data Results & Data Vital Signs (Past 12 Hours) Vital Signs Temp Pulse Resp BP Pulse Ox O2 Del Method 03/03/24 15:32 36.4 C L 56 L 16 105/66 93 Room Air 03/03/24 12:36 69 101/69 03/03/24 10:20 36.2 C L 69 17 106/67 96 Room Air 03/03/24 09:45 Room Air 03/03/24 07:28 36.8 C 67 18 92/53 L 93 Room Air Laboratory Results BMP, UA reviewed PG Care Time/CCT Total # of Minutes Spent Total Time Spent with Patient: Total time spent is greater than 50% in coordination of care (as documented) at patient's floor/unit and/or counseling patient: Coding Level of Care Code 02927 SUB INP/OBS CARE MIN Diagnoses CARLO (acute kidney injury) N17.9 Pneumonia J18.9 Acute hypotension I95.9 Hypoxia R09.02 Cellulitis of left lower extremity L03.115 Laterality: right Site of cellulitis: extremity Site of cellulitis of extremity: lower extremity Diabetes mellitus, type 2 E11.9 Gastroesophageal reflux disease, unspecified whether esophagitis present K21.9 Esophagitis presence: esophagitis presence not specified (5) Cellulitis Laterality: right Site of cellulitis: extremity Site of cellulitis of extremity: lower extremity Qualified Code(s): L03.115 - Cellulitis of right lower limb (7) GERD (gastroesophageal reflux disease) Esophagitis presence: esophagitis presence not specified Qualified Code(s): K21.9 - Gastro-esophageal reflux disease without esophagitis
[2024-03-04 08:03] LABS: Albumin Level 2.7 gm/dl (3.4-5.0); BUN Creatinine Ratio 9.2 (10-20); Calcium 8.2 mg/dl (8.6-10.3); Creatinine Clr Calc Pharmacy 23.7 ml/min; Est GFR (African American) 29.8 ml/min; Est GFR (Non-African American) 25.7 ml/min; Phosphorus 3.9 mg/dl (2.5-4.9); Potassium 4.1 mmol/L (3.5-5.1)
--- NOTE | 2024-03-04 10:15 | Nephrology Progress Note ---
Date of Service March 04, 2024 Assessment & Plan (1) CARLO (acute kidney injury): (2) Acute hypotension: (3) Cellulitis: (4) DM2 (diabetes mellitus, type 2): Plan 74 yo male with stage 3a CKD, baseline creatinine 1.2-1.4 mg/dl, admitted with generalized weakness, failure to thrive, lower extremity cellulitis, treated with Zosyn and ciprofloxacin. Has chronic hypertension and after discharge patient became generally weak and hypotensive and admitted within a day this last 10 days hospitalization, kidney function has been slowly worsening, creatinine up to 2.4, electrolyte acceptable. Renal ultrasound unremarkable. Urinalysis with pyuria without bacteriuria which has been chronic. Has been hypotensive, on midodrine 5 mg 3 times daily, blood pressures staying relatively stable although low. Acute kidney injury most likely hemodynamically mediated with hypotension, and recent IV contrast exposure. Although there is possibility for acute interstitial nephritis with pyuria without bacteriuria and recent multiple antibiotic exposure, pyuria has been chronic with prior history of recurrent urinary tract infection and ureteral stricture. Low-grade proteinuria noted with hypoalbuminemia. Volume status seems acceptable, clinically not volume depleted, overall almost 5 L positive since admission Kidney function staying relatively stable, electrolyte acceptable. Volume status acceptable. --Continue to monitor kidney function and electrolytes, hold discharge until see clear improvement in kidney function. --Encourage p.o. intake --Continue midodrine 5 mg 3 times daily, avoid hypotension. Admission and Anticipated Discharge Date Admission Date: February 28, 2024 Dread Pereira was seen and evaluated this morning. Overall he reports feeling about the same, no overnight events. Kidney function staying stable without further improvement. Electrolyte acceptable. Blood pressure fair. Review of Systems Review of Systems: Detailed review of system was done and pertinent positives and negatives were mentioned above. Physical Exam Constitutional: WD/WN, vitals as above no acute distress Eyes: + anicteric sclerae Neck: normal visual inspection Respiratory: no respiratory distress Cardiovascular: RRR, no murmur, no edema Skin: Mild erythema and bilateral leg Neurologic: no focal motor deficits Psychiatric: Orientation: alert and oriented x 3 Affect: euthymic affect Results & Data Vital Signs (Past 12 Hours) Vital Signs Temp Pulse Resp BP Pulse Ox O2 Del Method 03/04/24 08:04 37.1 C 67 17 117/73 94 Room Air 03/04/24 07:40 Room Air PG Care Time/CCT Total # of Minutes Spent Total Time Spent with Patient: Total time spent is greater than 50% in coordination of care (as documented) at patient's floor/unit and/or counseling patient: Coding Level of Care Code 51724 SUB INP/OBS CARE 2/35MIN Diagnoses CARLO (acute kidney injury) N17.9 Acute hypotension I95.9 Cellulitis of left lower extremity L03.115 Site of cellulitis: extremity Site of cellulitis of extremity: lower extremity Laterality: right Type 2 diabetes mellitus without complication, without long-term current use of insulin E11.9 Diabetes mellitus long lines operator insulin use: without long lines operator use Diabetes mellitus complication status: without complication (3) Cellulitis Site of cellulitis: extremity Site of cellulitis of extremity: lower extremity Laterality: right Qualified Code(s): L03.115 - Cellulitis of right lower limb (4) DM2 (diabetes mellitus, type 2) Diabetes mellitus long lines operator insulin use: without penitentiary use Diabetes mellitus complication status: without complication Qualified Code(s): E11.9 - Type 2 diabetes mellitus without complications
--- NOTE | 2024-03-04 17:43 | Hospitalist Progress Note ---
Date of Service March 04, 2024 Assessment & Plan (1) CARLO (acute kidney injury): Plan: Presented with generalized weakness after discharge from hospital the day prior after a lengthy hospital stay for cellulitis of leg and after being found down. CARLO here improved with IV fluids initially but now high risk ob rising further each day now at 2.38, BUN normal at 20-22 Renal function not much worse today-has stabilized He does have a h/o kidney stones. UA with chronic pyuria but urine cx mixed teddy Checked renal US--> no hydro or obstruction Also had IV contrast for CTA Chest on 02/28--> could be element of AMY Was also somewhat hypotensive--> perhaps ATN. UA no casts however Appreciate nephrology consultation-checking SPEP, UPEP, free kappa light chains, suspect volume mediated renal injury and perhaps contrast-induced nephropathy Continue to hold home potassium Follow BMP in AM Follow urine output (2) Pneumonia: Plan: With LLL PNA seen on CTA Chest Given recent hospitalization and emphysema, higher risk for Gram negative PNA, also could have aspiration given he was previously found down for unknown length of time--> switched Cipro to Zosyn on 03/02 No longer hypoxic and not coughing, lung exam improved Giving prophylactic Vanco po while on antibiotics given he is C. diff gene positive but toxin neg from last admission-no diarrhea (3) Acute hypotension: Plan: Midodrine has been uptitrated to 5mg tid and this is improved (4) Hypoxia: Plan: Acute hypoxic respiratory failure present on admission. D-dimer is markedly elevated. Chest CTA is negative for PE but he does have mucous plugging and PNA Now weaned off O2 Continue Incentive spirometry Continue antibiotics for pneumonia Follow (5) Cellulitis: Plan: Left lower extremity. He was treated with oral ciprofloxacin and legs appear dry with chronic venous stasis changes, erythema improved, no further acute infection Added ammonium lactate lotion (6) Diabetes mellitus, type 2: Plan: HgbA1C 7.9% here Holding metformin from home Continue Lantus home dose is also on gabapentin for neuropathy ADA diet. Sliding scale coverage. (7) GERD (gastroesophageal reflux disease): Plan: with diffuse thickening of esophagus seen on CTA Chest which could be from esophagitis Continue PPI Plan Fall-patient had a fall while attempting to ambulate to the bathroom himself on 03/03. He has a contusion to the right mid back with mild pain, no need for imaging at this point. Monitor. He is declining to take Tylenol for pain Strongly recommended rehab placement but he continues to adamantly decline to go to rehab. I offered to call his son to discuss his care and the patient does not want me to he reports that he will call his son on his own. Back pain improved on 03/04 DVT proph-heparin SQ Dispo-OT and PT both recommend rehab placement. Pt adamant that he will return home w/ home health--he is improving though on PT eval today-continue daily PT if able, possible dc to [facility] 1-2 days if renal function improves Admission and Anticipated Discharge Date Admission Date: February 28, 2024 Subjective Pt reports mild right lower to mid back pain but improved from yesterday.Is making urine, eating and drinking. No other concerns. Denies cough or SOB. Physical Exam Constitutional: WD/WN, vitals as above Respiratory: normal respiratory effort, lungs clear to auscultation Cardiovascular: RRR, no murmur, no edema Gastrointestinal (Abdomen): normal bowel sounds, soft, nontender, no hepatosplenomegaly Skin: + dry skin (improved with lotion on legs ) and + erythema (very mild R>L legs ) Psychiatric: A+Ox3, euthymic affect Results & Data Results & Data Vital Signs (Past 12 Hours) Vital Signs Temp Pulse Resp BP Pulse Ox O2 Del Method 03/04/24 16:54 105/66 03/04/24 15:41 36.4 C L 66 17 105/66 94 Room Air 03/04/24 12:07 104/69 03/04/24 08:04 37.1 C 67 17 117/73 94 Room Air 03/04/24 07:40 Room Air Laboratory Results BMP reviewed PG Care Time/CCT Total # of Minutes Spent Total Time Spent with Patient: Total time spent is greater than 50% in coordination of care (as documented) at patient's floor/unit and/or counseling patient: Coding Level of Care Code 13243 SUB INP/OBS CARE 2/35MIN Diagnoses CARLO (acute kidney injury) N17.9 Pneumonia J18.9 Acute hypotension I95.9 Hypoxia R09.02 Cellulitis of left lower extremity L03.115 Site of cellulitis: extremity Site of cellulitis of extremity: lower extremity Laterality: right Diabetes mellitus, type 2 E11.9 Gastroesophageal reflux disease, unspecified whether esophagitis present K21.9 Esophagitis presence: esophagitis presence not specified (5) Cellulitis Site of cellulitis: extremity Site of cellulitis of extremity: lower extremi ty Laterality: right Qualified Code(s): L03.115 - Cellulitis of right lower limb (7) GERD (gastroesophageal reflux disease) Esophagitis presence: esophagitis presence not specified Qualified Code(s): K21.9 - Gastro-esophageal reflux disease without esophagitis
[2024-03-05 07:23] LABS: Eosinophils # (auto) 0.54 K/uL (0.00-0.50); Eosinophils % (auto) 5.5 %; Hematocrit (blood only) 39.9 % (42.0-52.0); Hemoglobin 13.5 g/dl (14.0-18.0); Immature Granulocytes # (auto) 0.13 K/uL (0.01-0.20); Immature Granulocytes % (auto) 1.3 %; Lymphocytes # (auto) 2.59 K/uL (1.20-3.40); Lymphocytes % (auto) 26.4 %; Mean Corpuscular Hemoglobin 30.5 pg (25.0-34.0); Mean Corpuscular Hgb Conc 33.8 g/dL (32.0-36.0); Mean Corpuscular Volume 90.1 fL (80.0-100.0); Mean Platelet Volume 9.1 fL (9.4-12.4); Monocytes # (auto) 0.82 K/uL (0.11-0.59); Monocytes % (auto) 8.4 %; Neutrophils # (auto) 5.64 K/uL (1.40-6.50); Neutrophils % (auto) 57.4 %; Platelet Count 220 K/uL (130-400); RDW Coefficient of Variation 13.5 % (11.5-14.5); RDW Standard Deviation 44.7 fL (36.4-46.3); Red Blood Count 4.43 M/uL (4.70-6.10); White Blood Count 9.82 K/ul (4.8-10.8)
[2024-03-05 07:44] LABS: BUN Creatinine Ratio 10.2 (10-20); Calcium 8.4 mg/dl (8.6-10.3); Creatinine Clr Calc Pharmacy 23.9 ml/min; Est GFR (African American) 30.1 ml/min; Potassium 4.1 mmol/L (3.5-5.1)
--- NOTE | 2024-03-05 10:24 | Nephrology Progress Note ---
Date of Service March 05, 2024 Assessment & Plan (1) CARLO (acute kidney injury): (2) Acute hypotension: (3) Cellulitis: (4) DM2 (diabetes mellitus, type 2): Plan 74 yo male with stage 3a CKD, baseline creatinine 1.2-1.4 mg/dl, admitted with generalized weakness, failure to thrive, lower extremity cellulitis, treated with Zosyn and ciprofloxacin. Has chronic hypertension and after discharge patient became generally weak and hypotensive and admitted within a day this last 10 days hospitalization, kidney function has been slowly worsening, creatinine up to 2.4, electrolyte acceptable. Renal ultrasound unremarkable. Urinalysis with pyuria without bacteriuria which has been chronic. Blood pressures staying relatively stable although low. Acute kidney injury most likely hemodynamically mediated with hypotension, and recent IV contrast exposure. Volume status seems acceptable. Kidney function staying relatively stable, electrolyte acceptable. Volume status acceptable. --Continue to monitor kidney function and electrolytes. --Encourage p.o. intake --Continue midodrine 5 mg 3 times daily, avoid hypotension. --if clinically otherwise stable, Ok to DC with close outpt lab monitoring. Admission and Anticipated Discharge Date Admission Date: February 28, 2024 Dread Pereira was seen and evaluated this morning. Denies any symptoms/concerns. Kidney function staying stable without further improvement. Electrolyte acceptable. Blood pressure fair. Decent UO. Review of Systems Review of Systems: Detailed review of system was done and pertinent positives and negatives were mentioned above. Physical Exam Constitutional: WD/WN, vitals as above Respiratory: normal respiratory effort, lungs clear to auscultation Cardiovascular: RRR, no murmur, no edema Gastrointestinal (Abdomen): normal bowel sounds, soft, nontender, no hepatosplenomegaly Skin: + dry skin (improved with lotion on legs ) and + erythema (very mild R>L legs ) Psychiatric: A+Ox3, euthymic affect Results & Data Vital Signs (Past 12 Hours) Vital Signs Temp Pulse Resp BP Pulse Ox O2 Del Method 03/05/24 09:08 65 112/70 95 Room Air 03/05/24 08:14 36.5 C 73 16 98/60 L 90 Room Air 03/05/24 08:00 37 C 84 17 98/62 L 95 Room Air 03/05/24 07:30 Room Air PG Care Time/CCT Total # of Minutes Spent Total Time Spent with Patient: Total time spent is greater than 50% in coordination of care (as documented) at patient's floor/unit and/or counseling patient: Coding Level of Care Code 76643 SUB INP/OBS CARE MIN Diagnoses CARLO (acute kidney injury) N17.9 Acute hypotension I95.9 Cellulitis of left lower extremity L03.115 Site of cellulitis: extremity Site of cellulitis of extremity: lower extremity Laterality: right Type 2 diabetes mellitus without complication, without long-term current use of insulin E11.9 Diabetes mellitus longterm insulin use: without longterm use Diabetes mellitus complication status: without complication (3) Cellulitis Site of cellulitis: extremity Site of cellulitis of extremity: lower extremity Laterality: right Qualified Code(s): L03.115 - Cellulitis of right lower limb (4) DM2 (diabetes mellitus, type 2) Diabetes mellitus buttermaker insulin use: without buttermaker use Diabetes mellitus complication status: without complication Qualified Code(s): E11.9 - Type 2 diabetes mellitus without complications
[2024-03-05 14:17] LABS: Albumin 2.6 g/dL (3.8-4.8); Alpha 1 Globulin 0.3 g/dL (0.2-0.3); Alpha 2 Globulin 0.7 g/dL (0.5-0.9); Beta-1-Globulin 0.4 g/dL (0.4-0.6); Beta-2-Globulin 0.5 g/dL (0.2-0.5); Free Kappa 64.6 mg/L (3.3-19.4); Free Kappa/Lambda Ratio 1.42 (0.26-1.65); Free Lambda 45.4 mg/L (5.7-26.3); Monoclonal Protein Band 1 DNR g/dL (NONE DETECTED); Monoclonal Protein Band 2 DNR g/dL (NONE DETECTED); Monoclonal Protein Band 3 DNR g/dL (NONE DETECTED); Total Protein 5.5 g/dL (6.1-8.1)
[2024-03-05 14:22] LABS: Creatinine Ur 34 mg/dL (20-320); Protein, Urine Random 20 mg/dL (5-25); Ur Protein/Creat Ratio mg/g 588 mg/g creat (25-148); Urine Abnormal Protein Band 1 DNR mg/dL (NONE DETECTED); Urine Abnormal Protein Band 2 DNR mg/dL (NONE DETECTED); Urine Abnormal Protein Band 3 DNR mg/dL (NONE DETECTED); Urine Protein/Creatinine Ratio 0.588 (0.025-0.148)
--- NOTE | 2024-03-05 18:22 | Hospitalist Progress Note ---
Date of Service March 05, 2024 Assessment & Plan (1) CARLO (acute kidney injury): Plan: Presented with generalized weakness after discharge from hospital the day prior after a lengthy hospital stay for cellulitis of leg and after being found down. 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 UA with chronic pyuria but urine cx mixed teddy Checked renal US--> no hydro or obstruction Also had IV contrast for CTA Chest on 02/28--> could be element of AMY Was also somewhat hypotensive--> perhaps ATN. Appreciate nephrology consultation-checking SPEP, UPEP, free kappa light chains, suspect volume mediated renal injury and perhaps contrast-induced nephropathy Continue to hold home potassium COntinue to support BP with midodrine tid Follow BMP in AM Follow urine output (2) Pneumonia: Plan: With LLL PNA seen on CTA Chest Given recent hospitalization and emphysema, higher risk for Gram negative PNA, also could have aspiration given he was previously found down for unknown length of time--> switched Cipro to Zosyn on 03/02 No longer hypoxic and not coughing, lung exam improved Giving prophylactic Vanco po while on antibiotics given he is C. diff gene positive but toxin neg from last admission-no diarrhea (3) Acute hypotension: Plan: Midodrine has been uptitrated to 5mg tid and this is improved (4) Hypoxia: Plan: Acute hypoxic respiratory failure present on admission. D-dimer is markedly elevated. Chest CTA is negative for PE but he does have mucous plugging and PNA Now weaned off O2 Continue Incentive spirometry Continue antibiotics for pneumonia Follow (5) Cellulitis: Plan: Left lower extremity. He was treated with oral ciprofloxacin and legs appear dry with chronic venous stasis changes, erythema improved, no further acute infection Added ammonium lactate lotion (6) Diabetes mellitus, type 2: Plan: HgbA1C 7.9% here Holding metformin from home Continue Lantus home dose is also on gabapentin for neuropathy ADA diet. Sliding scale coverage. (7) GERD (gastroesophageal reflux disease): Plan: with diffuse thickening of esophagus seen on CTA Chest which could be from esophagitis Continue PPI Plan Fall-patient had a fall while attempting to ambulate to the bathroom himself on 03/03. He has a contusion to the right mid back with mild pain, no need for imaging at this point. Monitor. He is declining to take Tylenol for pain Strongly recommended rehab placement but he continues to adamantly decline to go to rehab. I offered to call his son to discuss his care and the patient does not want me to he reports that he will call his son on his own. Back pain improved on 03/04 DVT proph-heparin SQ Dispo-OT and PT both recommend rehab placement. Pt adamant that he will return home w/ home health--he is improving though on PT eval today-continue daily PT if able, possible dc to home Tuesday 03/06 if renal function improves Admission and Anticipated Discharge Date Admission Date: February 28, 2024 Subjective Pt denies problems. No pain or cough, no SOB. AMbulated with RN in room today and had several moments where he was losing his balance and falling backward. Physical Exam Constitutional: WD/WN, vitals as above Respiratory: normal respiratory effort, lungs clear to auscultation normal respiratory effort; no cough Auscultation: + crackles (right base); no rhonchi and no wheezes Cardiovascular: RRR, no murmur, no edema Gastrointestinal (Abdomen): normal bowel sounds, soft, nontender, no hepatosplenomegaly Skin: + dry skin (improved with lotion on legs ) and + erythema (very mild R>L legs ) Psychiatric: A+Ox3, euthymic affect Results & Data Results & Data Vital Signs (Past 12 Hours) Vital Signs Temp Pulse Pulse Resp BP Pulse Ox O2 Del Method 03/05/24 17:42 70 112/68 03/05/24 15:15 36.4 C L 64 17 103/67 95 Room Air 03/05/24 12:10 106/76 03/05/24 09:08 65 112/70 95 Room Air 03/05/24 08:14 36.5 C 73 16 98/60 L 90 Room Air 03/05/24 08:00 37 C 84 17 98/62 L 95 Room Air 03/05/24 07:30 Room Air Laboratory Results CBC, BMP, urine cx reviewed PG Care Time/CCT Total # of Minutes Spent Total Time Spent with Patient: Total time spent is greater than 50% in coordination of care (as documented) at patient's floor/unit and/or counseling patient: Coding Level of Care Code 31030 SUB INP/OBS CARE MIN Diagnoses CARLO (acute kidney injury) N17.9 Pneumonia J18.9 Acute hypotension I95.9 Hypoxia R09.02 Cellulitis of left lower extremity L03.115 Laterality: right Site of cellulitis: extremity Site of cellulitis of extremity: lower extremity Diabetes mellitus, type 2 E11.9 Gastroesophageal reflux disease, unspecified whether esophagitis present K21.9 Esophagitis presence: esophagitis presence not specified (5) Cellulitis Laterality: right Site of cellulitis: extremity Site of cellulitis of extremity: lower extremity Qualified Code(s): L03.115 - Cellulitis of right lower limb (7) GERD (gastroesophageal reflux disease) Esophagitis presence: esophagitis presence not specified Qualified Code(s): K21.9 - Gastro-esophageal reflux disease without esophagitis
[2024-03-06 06:57] LABS: BUN Creatinine Ratio 11.5 (10-20); Calcium 8.2 mg/dl (8.6-10.3); Creatinine Clr Calc Pharmacy 24.9 ml/min; Est GFR (African American) 31.7 ml/min; Est GFR (Non-African American) 27.4 ml/min
--- NOTE | 2024-03-06 09:40 | Nephrology Progress Note ---
Date of Service March 06, 2024 Assessment & Plan (1) CARLO (acute kidney injury): (2) Acute hypotension: (3) Cellulitis: (4) DM2 (diabetes mellitus, type 2): Plan 74 yo male with stage 3a CKD, baseline creatinine 1.2-1.4 mg/dl, admitted with generalized weakness, failure to thrive, lower extremity cellulitis, treated with Zosyn and ciprofloxacin. Has chronic hypertension and after discharge patient became generally weak and hypotensive and admitted within a day this last 10 days hospitalization, kidney function has been slowly worsening, creatinine up to 2.4, electrolyte acceptable. Renal ultrasound unremarkable. Urinalysis with pyuria without bacteriuria which has been chronic. Blood pressures staying relatively stable although low. Acute kidney injury most likely hemodynamically mediated with hypotension, and recent IV contrast exposure. Volume status seems acceptable. Kidney function staying relatively stable, electrolyte acceptable. Volume status acceptable. --Continue to monitor kidney function and electrolytes while in patient --Encourage p.o. intake --Continue midodrine 5 mg 3 times daily, avoid hypotension. --Ok to DC with close outpt lab monitoring. Admission and Anticipated Discharge Date Admission Date: February 28, 2024 Dread Pereira was seen and evaluated this morning. Denies any symptoms/concerns. Kidney function staying stable without further improvement. Electrolyte acceptable. Blood pressure fair. Decent UO. Review of Systems Review of Systems: Detailed review of system was done and pertinent positives and negatives were mentioned above. Physical Exam Constitutional: WD/WN, vitals as above Respiratory: normal respiratory effort, lungs clear to auscultation Cardiovascular: RRR, no murmur, no edema Skin: + dry skin (improved with lotion on legs ) and + erythema (very mild R>L legs ) Psychiatric: A+Ox3, euthymic affect Results & Data Vital Signs (Past 12 Hours) Vital Signs Temp Pulse Resp BP Pulse Ox O2 Del Method 03/06/24 07:30 35.7 C L 62 16 106/62 92 Room Air PG Care Time/CCT Total # of Minutes Spent Total Time Spent with Patient: Total time spent is greater than 50% in coordination of care (as documented) at patient's floor/unit and/or counseling patient: Coding Level of Care Code 99917 SUB INP/OBS CARE 2/35MIN Diagnoses CARLO (acute kidney injury) N17.9 Acute hypotension I95.9 Cellulitis of left lower extremity L03.115 Laterality: right Site of cellulitis: extremity Site of cellulitis of extremity: lower extremity Type 2 diabetes mellitus without complication, without long-term current use of insulin E11.9 Diabetes mellitus complication status: without complication Diabetes mellitus fdc insulin use: without fdc use (3) Cellulitis Laterality: right Site of cellulitis: extremity Site of cellulitis of extremity: lower extremity Qualified Code(s): L03.115 - Cellulitis of right lower limb (4) DM2 (diabetes mellitus, type 2) Diabetes mellitus complication status: without complication Diabetes mellitus fdc insulin use: without fdc use Qualified Code(s): E11.9 - Type 2 diabetes mellitus without complications
--- NOTE | 2024-03-06 10:57 | Discharge Summary ---
Date of Service March 06, 2024 Admission HPI Per Admitting Provider Randall Griffin is a 74 year old male who presents to the ER with difficulty getting up from his chair with hypotension at home after discharge yesterday. He was recently admitted from February 20 - 2023 due to failure to thrive, hypothermia and possible cellulitis. He declined rehab placement on discharge therefore was discharged home. He was treated with ciprofloxacin for possible cellulitis of his legs. He reports taking all medications prescribed. Per patient, he was seen by home health today who he reports gave him one chance to get off the chair and he was unable to do it therefore EMS were called. However he was also hypoxic (not on oxygen at discharge) with O2 sats 89% on room air and hypotensive therefore EMS were called to bring him back in. He reports the erythema of his legs has been getting much better and he has no specific complaints. No urine problems. No flank pain, fever or chills. Principal Diagnosis Acute kidney injury, volume depletion, hypotension, acute hypoxic respiratory failure, left lower extremity cellulitis Discharge Exam General-alert and oriented x3, no fever, no chills HEENT-head atraumatic and normocephalic, pupils equal and reactive to light, extraocular muscles intact Neck-no lymphadenopathy or thyromegaly, trachea midline Chest-diminished breath sounds bilaterally. No rales, wheezing or rhonchi Cardiac-regular rate and rhythm, normal S1 and S2 Abdomen-normal bowel sounds, no hepatosplenomegaly Extremities-no cyanosis, clubbing, or edema Neuro-cranial nerves II through XII intact, motor and sensory function within normal limits, strength symmetrical, no focal deficits Psych-normal affect, normal mood Discharge Data Allergies Allergy/AdvReac Type Severity Reaction Status Date / Time No Known Allergies Allergy Verified 02/28/24 17:00 Consultations 02/28/24 17:18 ED Decision to Admit Stat 03/03/24 07:48 Consult Nephrology Routine Ordered Studies 02/29/24 08:50 CT angio chest PE protocol Urgent 03/02/24 10:44 US renal/blad retro comp Routine Hospital Course (1) CARLO (acute kidney injury): Presented with generalized weakness after discharge from hospital the day prior after a lengthy hospital stay for cellulitis of leg and after being found down. CARLO here improved with IV fluids initially but now bobbin doffer rising further each day- finally peaked again today at 2.36, BUN normal at - He does have a h/o kidney stones. UA with chronic pyuria but urine cx mixed teddy Checked renal US--> no hydro or obstruction Also had IV contrast for CTA Chest on 02/28--> could be element of AMY Was also somewhat hypotensive--> perhaps ATN. Appreciate nephrology consultation-checking SPEP, UPEP, free kappa light chains, suspect volume mediated renal injury and perhaps contrast-induced nephropathy Continue to hold home potassium COntinue to support BP with midodrine tid Follow BMP in AM Follow urine output (2) Pneumonia: With LLL PNA seen on CTA Chest Given recent hospitalization and emphysema, higher risk for Gram negative PNA, also could have aspiration given he was previously found down for unknown length of time--> switched Cipro to Zosyn on 03/02. Further antibiotic therapy will be discontinued at discharge No longer hypoxic and not coughing, lung exam improved Giving prophylactic Vanco po while on antibiotics given he is C. diff gene positive but toxin neg from last admission-no diarrhea (3) Acute hypotension: Midodrine has been uptitrated to 5mg tid and blood pressure has improved (4) Hypoxia: Acute hypoxic respiratory failure present on admission. D-dimer is markedly elevated. Chest CTA is negative for PE but he does have mucous plugging and PNA Now weaned off O2 Continue Incentive spirometry He has completed his course of antibiotics. (5) Cellulitis: Left lower extremity. He was treated with oral ciprofloxacin and legs appear dry with chronic venous stasis changes, erythema improved, no further acute infection Added ammonium lactate lotion. Improved (6) Diabetes mellitus, type 2: HgbA1C 7.9% here Holding metformin from home Continue Lantus home dose is also on gabapentin for neuropathy ADA diet. Sliding scale coverage as needed (7) GERD (gastroesophageal reflux disease): with diffuse thickening of esophagus seen on CTA Chest which could be from esophagitis Continue PPI Plan Home today with home health services, March 06. Strongly recommended rehab placement but he continues to adamantly decline to go to rehab. OT and PT both recommend rehab placement. Pt adamant that he will return home w/ home health Total Time Total Time Spent Total Time Spent (In Minutes): 45-minute Discharge Plan Discharge Items Patient Disposition: Home - Home Health Services Reason For Visit: CARLO Discharge Diagnosis: Following depletion, hypotension, acute kidney injury, acute hypoxic respiratory failure, left lower extremity cellulitis Activity: Resume your previous activity Non-emergency contact: Primary Care Provider Call non-emergency contact if: your symptoms worsen Follow-up/Referrals: Jennifer Soni [Primary Care Provider] - Diet: Carb Consistent or DM2 and Heart Healthy Addtl Attending Provider Instructions: Midodrine dosage has been increased to 5 mg 3 times a day. Gabapentin dosage has been decreased Pending Studies at Discharge: No Stand-Alone Forms: My [facility], Smoking Cessation Medications and DC Order Prescriptions: New gabapentin 100 mg Capsule 100 mg PO TID Qty: 100 0RF midodrine 5 mg tablet 5 mg PO TID Qty: 90 0RF Rx Instructions: do not give last dose of day after 6PM or within 4 hrs of bedtime Continued potassium chloride 20 mEq tablet,ER particles/crystals 20 meq PO QAM magnesium oxide 400 mg (241.3 mg magnesium) tablet 400 mg PO AMHS metformin 1,000 mg Tablet 1,000 mg PO QPM cholecalciferol (vitamin D3) [Vitamin D3] 125 mcg (5,000 unit) Tablet 125 mcg PO HS pantoprazole 20 mg tablet,delayed release (DR/EC) 20 mg PO QAM insulin aspart U-100 [Novolog FlexPen U-100 Insulin] 100 unit/mL (3 mL) insulin pen 1 sliding scale dose subcut AC Rx Instructions: per son insulin glargine [Lantus Solostar U-100 Insulin] 100 unit/mL (3 mL) insulin pen 6 unit SUBCUT QAM Rx Instructions: Can not get a hold of son to see when last had. Discontinued gabapentin 300 mg Capsule 300 mg PO TID midodrine 2.5 mg tablet 2.5 mg PO TID ciprofloxacin HCl 500 mg Tablet 500 mg PO BID 5 Days Qty: 10 0RF Discharge Orders: Discharge Order (Routine); Ordered 03/06/24 Ordered By: Tom Preciado/Other Patient Handouts: Managing Type 2 Diabetes Admission Data Admit Date/Time: 02/28/24 17:57 Attending Provider: Tom Ferraro Admit Provider: Sylvester Hall Primary Care Provider: Jennifer Soni Other Providers: Sylvester Hall; Carlene Sneed Coding Level of Care Code 30324 INP/OBS DISCH >30 MIN Diagnoses CARLO (acute kidney injury) N17.9 Pneumonia J18.9 Acute hypotension I95.9 Hypoxia R09.02 Cellulitis of left lower extremity L03.115 Laterality: right Site of cellulitis: extremity Site of cellulitis of extremity: lower extremity Diabetes mellitus, type 2 E11.9 Gastroesophageal reflux disease, unspecified whether esophagitis present K21.9 Esophagitis presence: esophagitis presence not specified
== END 2024-03-06 13:52 | disposition home health service (06) | DRG 177 ==
LOC: ED 14:48 → 3W 17:57 → SUATTDRO 17:57 → 3W 19:57

== ENCOUNTER 2024-06-05 19:01 | Inpatient (IN) ==
[2024-06-05 20:09] LABS: Base Excess VBG -0.2 mEq/L; HCO3 VBG 25 mmol/L; Oxygen Saturation VBG 92.1 %; PCO2 VBG 41 mmHg (38-50); PO2 VBG 61 mmHg; pH VBG 7.39 (7.36-7.41)
[2024-06-05 20:09] LABS: Basophils # (auto) 0.08 K/uL (0.00-0.20); Basophils % (auto) 0.6 %; Eosinophils # (auto) 0.37 K/uL (0.00-0.50); Eosinophils % (auto) 2.9 %; Hemoglobin 12.5 g/dl (14.0-18.0); Immature Granulocytes # (auto) 0.06 K/uL (0.01-0.20); Immature Granulocytes % (auto) 0.5 %; Lymphocytes # (auto) 1.78 K/uL (1.20-3.40); Lymphocytes % (auto) 13.9 %; Mean Corpuscular Hemoglobin 30.5 pg (25.0-34.0); Mean Corpuscular Hgb Conc 33.8 g/dL (32.0-36.0); Mean Corpuscular Volume 90.2 fL (80.0-100.0); Mean Platelet Volume 8.9 fL (9.4-12.4); Monocytes # (auto) 0.78 K/uL (0.11-0.59); Monocytes % (auto) 6.1 %; Neutrophils # (auto) 9.75 K/uL (1.40-6.50); Platelet Count 225 K/uL (130-400); RDW Coefficient of Variation 13.7 % (11.5-14.5); RDW Standard Deviation 45.4 fL (36.4-46.3); White Blood Count 12.82 K/ul (4.8-10.8)
[2024-06-05] MEDS: SODIUM CHLORIDE 0.9% 1,000 ML IV SCH (20:19)
[2024-06-05 20:21] LABS: INR 1.1 (0.9-1.1); Partial Thromboplastin Time 27 Seconds (21-31)
[2024-06-05 20:33] LABS: BUN Creatinine Ratio 13.7 (10-20); Bilirubin,Total 0.9 mg/dl (0.2-1.0); Creatinine Clr Calc Pharmacy 32.7 ml/min; Est GFR (African American) 45.4 ml/min; Est GFR (Non-African American) 39.1 ml/min; Magnesium 1.5 mg/dl (1.7-2.4); Potassium 3.6 mmol/L (3.5-5.1)
[2024-06-05 20:36] LABS: Acetaminophen < 3 ug/ml (10-30); Salicylate < 3.0 mg/dl (3.0-30)
[2024-06-05 20:39] LABS: Troponin I High Sensitivity 8.9 pg/ml (0-20)
--- NOTE | 2024-06-05 21:02 | CT Scan Report ---
Exam(s): CT HEAD Without Contrast EXAM: CT Head Without Intravenous Contrast CLINICAL HISTORY: Reason for exam: Trauma. TECHNIQUE: Axial computed tomography images of the head/brain without intravenous contrast. CTDI is 35 mGy and DLP is 624 mGy-cm. Automated exposure control was utilized for the study. A dose lowering technique was utilized adhering to the principles of ALARA. COMPARISON: CT head: 02/21/2024 FINDINGS: Diagnostic sensitivity of the exam is reduced by motion artifact. Brain: No acute intracranial hemorrhage, mass-effect or midline shift noted. Age-related cortical atrophy with widening of the extra-axial spaces and ventricular dilatation. There are areas of decreased attenuation within the white matter tracts of the supratentorial brain that can be seen with chronic microvascular disease. Bones/joints: Unremarkable. No acute fracture. Soft tissues: Unremarkable. Sinuses: Unremarkable as visualized. No acute sinusitis. Mid nasal septal deviation to the right. Mastoid air cells: Unremarkable as visualized. No mastoid effusion. IMPRESSION: . No acute intracranial abnormality evident. Chronic involutional and ischemic changes of the brain. Electronically signed by: Harini Lechuga MD, ANDREAR 06/05/24 21:01 PM
--- NOTE | 2024-06-05 21:19 | CT Scan Report ---
Exam(s): CT C SPINE EXAM: CT Cervical Spine Without Intravenous Contrast CLINICAL HISTORY: Reason for exam: Trauma. TECHNIQUE: Axial computed tomography images of the cervical spine without intravenous contrast. CTDI is 35 mGy and DLP is 624 mGy-cm. Automated exposure control was utilized for the study. A dose lowering technique was utilized adhering to the principles of ALARA. COMPARISON: CT cervical spine: 02/21/2024. FINDINGS: Vertebrae: Osteopenia. Mildly exaggerated cervical lordosis. A C3 vertebral minimal retrolisthesis. No acute fracture. Discs/spinal canal/neural foramina: Moderately severe degenerative spondylitic changes seen from C3-C6 levels. The greatest amount of disc material is present at C5-C6 with resultant severe right neuroforaminal stenosis. Soft tissues: Unremarkable. Other findings: Lung apices: Severe paraseptal/centrilobular emphysematous changes. . IMPRESSION: No acute cervical spine fracture or subluxation. Degenerative cervical spondylosis . Electronically signed by: Harini Lechuga MD, ANDREAR 06/05/24 21:18 PM
[2024-06-05 21:39] LABS: Adenovirus PCR Not Detected (NotDetected); Bordetella parapertussis PCR Not Detected (NotDetected); Bordetella pertussis PCR Not Detected (NotDetected); Chlamydia pneumoniae PCR Not Detected (NotDetected); Coronavirus 229E PCR Not Detected (NotDetected); Coronavirus CoV-2 (COVID19)PCR Not Detected (NotDetected); Coronavirus HKU1 PCR Not Detected (NotDetected); Coronavirus NL63 PCR Not Detected (NotDetected); Coronavirus OC43PCR Not Detected (NotDetected); Human Metapneumovirus PCR Not Detected (NotDetected); Influenza A PCR Not Detected (NotDetected); Influenza B PCR Not Detected (NotDetected); Mycoplasma pneumoniae PCR Not Detected (NotDetected); Parainfluenza Virus 1 PCR Not Detected (NotDetected); Parainfluenza Virus 2 PCR Not Detected (NotDetected); Parainfluenza Virus 3 PCR Not Detected (NotDetected); Parainfluenza Virus 4 PCR Not Detected (NotDetected); Respiratory Syncytial VirusPCR Not Detected (NotDetected); Rhinovirus/Enterovirus PCR Not Detected (NotDetected)
--- NOTE | 2024-06-05 21:50 | CT Scan Report ---
Exam(s): CT CHEST Without Contrast EXAM: CT Chest Without Intravenous Contrast CLINICAL HISTORY: Reason for exam: Trauma. TECHNIQUE: Axial computed tomography images of the chest without intravenous contrast. CTDI is 35 mGy and DLP is 624 mGy-cm. Automated exposure control was utilized for the study. A dose lowering technique was utilized adhering to the principles of ALARA. COMPARISON: CT chest: 02/29/2024 FINDINGS: Diagnostic sensitivity of the exam is reduced by motion artifact. Lungs: Central airways are patent. Bilateral bronchial wall thickening and mild dilatation. Upper lobes predominant severe centrilobular emphysema. Laterally in the posterior right lower lobe along the major fissure a bandlike reticular interstitial thickening is unchanged. In the left lower lobe posteriorly residual interstitial infiltrates remain with interval improvement. Centrally in the right middle lobe a stable 10 mm partially calcified nodule/granuloma (series 9, image 43). No mass. No consolidation. Pleural space: Left posterior mild pleural thickening.. No pneumothorax. No significant effusion. Heart: No cardiomegaly. Significant calcified left coronary arterial atherosclerosis. No significant pericardial effusion. Bones/joints: A mildly displaced subacute fracture of the left 11th rib posteriorly (series 1100, image 77). No acute fracture. No dislocation. Soft tissues: Unremarkable. Circumferential wall thickening of the mid esophagus. Mildly dilated gas-filled upper esophagus. Vasculature: Ectatic ascending aorta: 38 mm in diameter. Diffuse aortic atheromatous calcification. No thoracic aortic aneurysm. Lymph nodes: Unremarkable. No enlarged lymph nodes. Thickening of the adrenal glands, LT>RT. Non obstructive small right renal calculus. Perinephric fat stranding. IMPRESSION: No evidence of acute traumatic intrathoracic injury. Likely a subacute/mildly displaced fracture of the left 11th rib posteriorly (series 11 image 210) . Additional chronic changes as described above. . Electronically signed by: Harini Lechuga MD, DABR 06/05/24 21:49 PM
[2024-06-05] MEDS: MAGNESIUM SULFATE / D5W 1 GM/100 ML BAG IV SCH (21:54)
--- NOTE | 2024-06-05 22:18 | CT Scan Report ---
Exam(s): CT ABDOMEN + PELVIS Without Contrast EXAM: CT Abdomen and Pelvis Without Intravenous Contrast CLINICAL HISTORY: Reason for exam: Trauma. TECHNIQUE: Axial computed tomography images of the abdomen and pelvis without intravenous contrast. CTDI is 35 mGy and DLP is 783 mGy-cm. Automated exposure control was utilized for the study. A dose lowering technique was utilized adhering to the principles of ALARA. COMPARISON: CT abdomen/pelvis: 04/11/2023 FINDINGS: Lung bases: Concurrently performed CT chest is reported separately. ABDOMEN: Analysis of abdominal/pelvic viscera and vascular structures is limited in absence of IV contrast. Image quality is also degraded by motion artifact Liver: Unremarkable unenhanced liver Gallbladder and bile ducts: Unremarkable. No calcified stones. No ductal dilation. Pancreas: Diffuse pancreatic atrophy and varying stippled to cores parenchymal calcifications, consistent with chronic pancreatitis. Spleen: Unremarkable. No splenomegaly. Adrenals: Significant left adrenal thickening. Unremarkable right adrenal gland. Kidneys and ureters: A 6.9 x 6.2 x 6.2 cm left renal mildly septated cyst seen similar to previous. A small 3 mm calculus present in the upper pole calyx of the right kidney. No obstructing stones. Mild fullness of the right renal collecting system. Stomach and bowel: Again noted up to 15 mm wall thickening of a moderately distended fluid/gas filled stomach. There is diffuse wall thickening of the colon, could be related to non-distention, although colitis not completely excluded. Stool/gas filled distended rectosigmoid. No obstruction. PELVIS: Appendix: No findings to suggest acute appendicitis. Bladder: A distended bladder with uniform 5.5 mm wall thickness. No stones. Reproductive: Unremarkable as visualized. ABDOMEN and PELVIS: Intraperitoneal space: Unremarkable. No free air. No significant fluid collection. Bones/joints: A T12 vertebral superior endplate wedge compression deformity/fracture with loss of 50% anterior body height (series 1201, image 45). No dislocation. Soft tissues: Unremarkable. Vasculature: Unremarkable. No abdominal aortic aneurysm. Lymph nodes: Unremarkable. No enlarged lymph nodes. Other findings: Inflammatory mass like soft tissue abnormality is incompletely seen posteriorly along the zenaida cleft (series 12 image 349). Fat-containing a very small umbilical hernia. IMPRESSION: A T12 vertebral superior endplate compression fracture with loss of about 50% anterior body height. No CT evidence of solid abdominal/pelvic organ injury. No free intraperitoneal air or free fluid. A distended urinary bladder with uniform mild wall thickness. Posteriorly inflammatory mass like soft tissue abnormality seen incompletely along the cleft. Clinical correlation recommended. Additional chronic findings as described above. . Electronically signed by: Harini Lechuga MD, SANTIAGO 06/05/24 22:17 PM
[2024-06-05] MEDS: SODIUM CHLORIDE 0.9% 500 ML IV SCH (22:36)
[2024-06-05 22:51] LABS: Appearance Urine Clear (Clear); Bacteria Urine Automated None Seen (None Seen); Bilirubin Urine Negative (Negative); Blood Urine Negative (Negative); Color Urine Yellow; Epithelial Cell Urine Auto 0-2 /hpf (0-2); Glucose Urine UA Negative (Negative); Ketones Urine Negative (Negative); Leukocyte Esterase Urine 2+ (Negative); Nitrite Urine Negative (Negative); Protein Urine Negative (Negative); RBC Urine Automated 0-2 /hpf (0-2); Specific Gravity Urine 1.014 (1.000-1.030); Urobilinogen Urine Negative (Negative); WBC Urine Automated >50 /hpf (0-5); pH Urine 5.5 (4.5-7.5)
[2024-06-05] MEDS ORDERED: LORazepam 3 MG in SYRINGE 1.5 ML IV PRN (23:33)
[2024-06-05] MEDS ORDERED: LORazepam 1 MG in SYRINGE 0.5 ML IV PRN (23:33)
[2024-06-05] MEDS ORDERED: LORazepam 2 MG in SYRINGE 1 ML IV PRN (23:33)
[2024-06-05] MEDS ORDERED: Ativan IV Alcohol Withdrawal--Active Protocol IV PRN (23:33)
[2024-06-05 23:46] LABS: Amphetamines+Metham, Urine Neg (Neg); Barbiturates, Urine Neg (Neg); Benzodiazepine, Urine Neg (Neg); Cocaine, Urine Neg (Neg); Fentanyl, Urine Neg (Neg); MDMA (Ecstacy), Urine Neg (Neg); Marijuana, Urine Neg (Neg); Methadone, Urine Neg (Neg); Opiate, Urine Neg (Neg); Phencyclidine, Urine Neg (Neg)
[2024-06-05] MEDS: POTASSIUM CHLORIDE CRTAB 20 MEQ TABCR PO STA (23:55)
--- NOTE | 2024-06-06 00:20 | Emergency Department Note ---
History of Present Illness General Chief complaint: Trauma Stated complaint: AMS, Fall Time Seen by Provider: 06/05/24 19:39 Source: RN notes reviewed History of Present Illness Provider complaint: Altered mental status found down 74-year-old male presents emergency department for altered mental status after being found down. Per EMS the patient was found outside after lying on the ground all day. The patient was initially unresponsive but now is verbal. Patient was covered in his own feces. Home Medications Medication Instructions Recorded Confirmed Type magnesium oxide 400 mg (241.3 mg 400 mg PO AMHS 04/05/23 02/28/24 History magnesium) tablet cholecalciferol (vitamin D3) 125 125 mcg PO HS 06/18/23 02/28/24 History mcg (5,000 unit) tablet (Vitamin D3) metformin 1,000 mg tablet 1,000 mg PO QPM 06/18/23 02/28/24 History potassium chloride 20 mEq 20 meq PO QAM 11/09/23 02/28/24 History tablet,extended release(part/cryst) insulin aspart U-100 100 unit/mL 1 sliding scale dose subcut AC 02/21/24 02/28/24 History (3 mL) subcutaneous pen (Novolog FlexPen U-100 Insulin aspart) insulin glargine 100 unit/mL (3 6 unit subcut QAM 02/21/24 02/28/24 History mL) subcutaneous pen (Lantus Solostar U-100 Insulin) pantoprazole 20 mg tablet,delayed 20 mg PO QAM 02/21/24 02/28/24 History release gabapentin 100 mg capsule 100 mg PO TID #100 caps 03/06/24 Rx midodrine 5 mg tablet 5 mg PO TID #90 tabs 03/06/24 Rx Allergies Allergy/AdvReac Type Severity Reaction Status Date / Time No Known Allergies Allergy Verified 02/28/24 17:00 Past Med/Surg History Problem List (Updated 06/06/24 @ 00:38 by Nikita Bowman MD) Fall (Acute) Hypoxia (Acute) Pneumonia Hypomagnesemia (Acute) Leukocytosis (Acute) Elevated lactic acid level (Acute) CARLO (acute kidney injury) (Acute) Acute hypotension (Acute) Hypoxia (Acute) Metabolic encephalopathy Exposure to body fluid Cellulitis (Acute) Fecal soiling due to fecal incontinence Acute dehydration (Acute) Acute hypotension (Acute) Acute UTI (Acute) Encounter for pre-operative examination Right nephrolithiasis Weakness Low blood pressure DM2 (diabetes mellitus, type 2) GERD (gastroesophageal reflux disease) Esophageal candidiasis Urinary retention Phimosis Hydronephrosis, right Medical History CARLO (acute kidney injury) C. difficile colitis Hypomagnesemia Septic shock Hypomagnesemia Acute kidney injury superimposed on CKD Sepsis due to urinary tract infection Metabolic encephalopathy 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 GERD (gastroesophageal reflux disease) Diabetes mellitus, type 2 Cataract upcoming surgery for correction Low blood pressure On Midodrine Chronic obstructive pulmonary disease Surgical History History of esophagogastroduodenoscopy (EGD) History of colonoscopy History of tooth extraction Family History Other No family history of adverse response to anesthesia Social History Smoking Status: Current every day smoker Tobacco Type: Cigarettes Cigarettes Per Day: 10; Second Hand Exposure: No; Do You Dip or Chew Tobacco: No; Hx Alcohol Use: No Hx Substance Use: No Preferred Language: Bahraini Communication Ability: Effective 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 Beliefs That Will Affect Care: None Current Living Situation: Family Current Living Situation Comment: son Russ Feels Safe at Home: Yes Assistive Devices: Cane and Walker Physical Exam Vital Signs Vital Signs - 24 hr 06/05/24 19:16 06/05/24 19:20 06/05/24 19:20 Temperature 37 C Temperature Source Oral Pulse Rate 107 H 102 H Pulse Rate [Apical] Pulse Rate from SpO2 Sensor Pulse Rhythm Pulse Strength [Carotid] Respiratory Rate 18 Respiratory Effort / Characteristics Non-Labored Respiratory Depth Shallow Respiratory Pattern Blood Pressure 112/62 Blood Pressure [Right Arm] Blood Pressure Mean 78 Blood Pressure Mean [Right Arm] Pulse Oximetry 91 90 Oxygen Delivery Method Room Air Room Air Oxygen Flow Rate Sepsis Recent Fever Within 48 Hours No Sepsis New/Unexplained Change in Mental Status Yes Sepsis Action Taken by Nursing Physician Notified Oxygen Flow Rate - Titration Pulse Oximetry Post Tiitration 06/05/24 19:24 06/05/24 19:30 06/05/24 19:36 Temperature Temperature Source Pulse Rate 103 H 103 H Pulse Rate [Apical] Pulse Rate from SpO2 Sensor 103 H 103 H Pulse Rhythm Pulse Strength [Carotid] Respiratory Rate 36 H 28 H Respiratory Effort / Characteristics Respiratory Depth Respiratory Pattern Blood Pressure 91/56 L Blood Pressure [Right Arm] Blood Pressure Mean 62 Blood Pressure Mean [Right Arm] Pulse Oximetry 90 89 L Oxygen Delivery Method Oxygen Flow Rate Sepsis Recent Fever Within 48 Hours Sepsis New/Unexplained Change in Mental Status Sepsis Action Taken by Nursing Oxygen Flow Rate - Titration Pulse Oximetry Post Tiitration 06/05/24 19:44 06/05/24 19:44 06/05/24 19:51 Temperature Temperature Source Pulse Rate 112 H 98 H Pulse Rate [Apical] Pulse Rate from SpO2 Sensor 97 H Pulse Rhythm Regular Pulse Strength [Carotid] Respiratory Rate 21 Respiratory Effort / Characteristics Respiratory Depth Respiratory Pattern Blood Pressure Blood Pressure [Right Arm] Blood Pressure Mean Blood Pressure Mean [Right Arm] Pulse Oximetry 88 L 99 92 Oxygen Delivery Method Nasal Cannula Nasal Cannula Oxygen Flow Rate 0 2 Sepsis Recent Fever Within 48 Hours Sepsis New/Unexplained Change in Mental Status Sepsis Action Taken by Nursing Oxygen Flow Rate - Titration 2 Pulse Oximetry Post Tiitration 92 06/05/24 20:17 06/05/24 20:17 06/05/24 20:18 Temperature 37.0 C Temperature Source Pulse Rate 101 H Pulse Rate [Apical] Pulse Rate from SpO2 Sensor Pulse Rhythm Pulse Strength [Carotid] Normal Respiratory Rate 18 Respiratory Effort / Characteristics Respiratory Depth Respiratory Pattern Blood Pressure 95/60 L 95/60 L 95/60 L Blood Pressure [Right Arm] Blood Pressure Mean 65 65 Blood Pressure Mean [Right Arm] Pulse Oximetry 96 Oxygen Delivery Method Nasal Cannula Oxygen Flow Rate 2 Sepsis Recent Fever Within 48 Hours Sepsis New/Unexplained Change in Mental Status Sepsis Action Taken by Nursing Oxygen Flow Rate - Titration Pulse Oximetry Post Tiitration 06/05/24 20:18 06/05/24 20:18 06/05/24 20:20 Temperature 37 C Temperature Source Oral Pulse Rate 86 Pulse Rate [Apical] 105 H 84 Pulse Rate from SpO2 Sensor 86 Pulse Rhythm Pulse Strength [Carotid] Respiratory Rate 22 21 16 Respiratory Effort / Characteristics Non-Labored Non-Labored Respiratory Depth Shallow Normal Respiratory Pattern Regular Blood Pressure Blood Pressure [Right Arm] 101/67 95/60 L Blood Pressure Mean Blood Pressure Mean [Right Arm] 78 71 Pulse Oximetry 94 94 95 Oxygen Delivery Method Nasal Cannula Nasal Cannula Oxygen Flow Rate 2 2 Sepsis Recent Fever Within 48 Hours Sepsis New/Unexplained Change in Mental Status Sepsis Action Taken by Nursing Oxygen Flow Rate - Titration Pulse Oximetry Post Tiitration 06/05/24 20:30 06/05/24 20:30 06/05/24 20:30 Temperature Temperature Source Pulse Rate 82 Pulse Rate [Apical] Pulse Rate from SpO2 Sensor 82 Pulse Rhythm Pulse Strength [Carotid] Respiratory Rate 18 Respiratory Effort / Characteristics Respiratory Depth Respiratory Pattern Blood Pressure 102/63 102/63 Blood Pressure [Right Arm] Blood Pressure Mean 75 75 Blood Pressure Mean [Right Arm] Pulse Oximetry 96 Oxygen Delivery Method Oxygen Flow Rate Sepsis Recent Fever Within 48 Hours Sepsis New/Unexplained Change in Mental Status Sepsis Action Taken by Nursing Oxygen Flow Rate - Titration Pulse Oximetry Post Tiitration 06/05/24 20:45 06/05/24 20:48 06/05/24 21:00 Temperature Temperature Source Pulse Rate 81 81 Pulse Rate [Apical] Pulse Rate from SpO2 Sensor 81 81 Pulse Rhythm Pulse Strength [Carotid] Respiratory Rate 19 18 Respiratory Effort / Characteristics Respiratory Depth Respiratory Pattern Blood Pressure 99/61 L Blood Pressure [Right Arm] Blood Pressure Mean 65 Blood Pressure Mean [Right Arm] Pulse Oximetry 96 96 Oxygen Delivery Method Oxygen Flow Rate Sepsis Recent Fever Within 48 Hours Sepsis New/Unexplained Change in Mental Status Sepsis Action Taken by Nursing Oxygen Flow Rate - Titration Pulse Oximetry Post Tiitration 06/05/24 21:15 06/05/24 21:18 06/05/24 21:21 Temperature Temperature Source Pulse Rate 77 79 Pulse Rate [Apical] Pulse Rate from SpO2 Sensor Pulse Rhythm Pulse Strength [Carotid] Respiratory Rate 20 18 Respiratory Effort / Characteristics Respiratory Depth Respiratory Pattern Blood Pressure Blood Pressure [Right Arm] Blood Pressure Mean Blood Pressure Mean [Right Arm] Pulse Oximetry 91 Oxygen Delivery Method Room Air Oxygen Flow Rate Sepsis Recent Fever Within 48 Hours Sepsis New/Unexplained Change in Mental Status Sepsis Action Taken by Nursing Oxygen Flow Rate - Titration Pulse Oximetry Post Tiitration 06/05/24 21:30 06/05/24 21:30 06/05/24 21:33 Temperature Temperature Source Pulse Rate 79 Pulse Rate [Apical] Pulse Rate from SpO2 Sensor 76 Pulse Rhythm Pulse Strength [Carotid] Respiratory Rate 17 Respiratory Effort / Characteristics Respiratory Depth Respiratory Pattern Blood Pressure 94/54 L 94/54 L Blood Pressure [Right Arm] Blood Pressure Mean 74 74 Blood Pressure Mean [Right Arm] Pulse Oximetry 81 L Oxygen Delivery Method Oxygen Flow Rate Sepsis Recent Fever Within 48 Hours Sepsis New/Unexplained Change in Mental Status Sepsis Action Taken by Nursing Oxygen Flow Rate - Titration Pulse Oximetry Post Tiitration 06/05/24 21:57 06/05/24 22:00 06/05/24 22:00 Temperature Temperature Source Pulse Rate 78 82 Pulse Rate [Apical] Pulse Rate from SpO2 Sensor 78 Pulse Rhythm Pulse Strength [Carotid] Respiratory Rate 19 20 Respiratory Effort / Characteristics Respiratory Depth Respiratory Pattern Blood Pressure 99/59 L 99/59 L Blood Pressure [Right Arm] Blood Pressure Mean 72 72 Blood Pressure Mean [Right Arm] Pulse Oximetry 94 92 Oxygen Delivery Method Room Air Oxygen Flow Rate Sepsis Recent Fever Within 48 Hours Sepsis New/Unexplained Change in Mental Status Sepsis Action Taken by Nursing Oxygen Flow Rate - Titration Pulse Oximetry Post Tiitration 06/05/24 22:00 06/05/24 22:12 06/05/24 22:15 Temperature Temperature Source Pulse Rate 76 77 Pulse Rate [Apical] Pulse Rate from SpO2 Sensor 76 77 Pulse Rhythm Pulse Strength [Carotid] Respiratory Rate 20 22 Respiratory Effort / Characteristics Respiratory Depth Respiratory Pattern Blood Pressure 99/59 L Blood Pressure [Right Arm] Blood Pressure Mean 72 Blood Pressure Mean [Right Arm] Pulse Oximetry 92 91 Oxygen Delivery Method Room Air Oxygen Flow Rate Sepsis Recent Fever Within 48 Hours Sepsis New/Unexplained Change in Mental Status Sepsis Action Taken by Nursing Oxygen Flow Rate - Titration Pulse Oximetry Post Tiitration 06/05/24 23:00 06/05/24 23:19 Temperature Temperature Source Pulse Rate 75 Pulse Rate [Apical] 78 Pulse Rate from SpO2 Sensor Pulse Rhythm Pulse Strength [Carotid] Respiratory Rate 16 Respiratory Effort / Characteristics Non-Labored Spontaneous Respiratory Depth Normal Respiratory Pattern Blood Pressure Blood Pressure [Right Arm] 106/67 Blood Pressure Mean Blood Pressure Mean [Right Arm] 80 Pulse Oximetry 98 Oxygen Delivery Method Room Air Oxygen Flow Rate Sepsis Recent Fever Within 48 Hours Sepsis New/Unexplained Change in Mental Status Sepsis Action Taken by Nursing Oxygen Flow Rate - Titration Pulse Oximetry Post Tiitration Physical Exam GENERAL: Patient is disheveled covered in his own feces and foul-smelling. HENT: Exam performed. - Head: Normocephalic and atraumatic. NECK: Patient in c-collar. CV: Normal rate, regular rhythm, normal heart sounds and intact distal pulses. PULM/CHEST: Effort normal and breath sounds normal. No respiratory distress. No stridor. He has no wheezes. He has no rales. - Chest Wall: He exhibits no tenderness. No crepitus bilaterally. ABD: The abdomen is soft. MUSC/SKEL: Pelvis stable. NEURO: Motor and sensation grossly intact. Course Course 1938: The patient was evaluated in room C1. A complete history and physical exam was performed Cardiac monitoring: An order was placed for continuous cardiac monitoring. The monitor shows a rate of 100 with sinus rhythm interpreted by me Patient hypoxic on room air supplemental oxygen applied via nasal cannula which improved the patient oxygen saturation. Patient tachycardic and hypotensive. Trauma alert called. 2230: Vital signs stable supplemental oxygen via nasal cannula. Labs show leukocytosis of 12.82. Coagulation studies within normal limits. VBG within normal limits. Creatinine is improved to 1.68. Magnesium 1.5. Magnesium repletion started in the emergency department. Imaging shows a subacute mildly displaced fracture of the 11th left rib and a T12 compression fracture, otherwise no traumatic findings. Discussed findings with the son who came to bedside. Patient will be admitted to the [facility] team. 0037: Urine is positive. Patient treated with Rocephin. Administered Medications Sodium Chloride (Nss) 500 mls @ 125 mls/hr IV .Q4H ISABELL Stop: 07/05/24 22:29 Last Admin: 06/05/24 22:36 Dose: 125 mls/hr Documented By: LOC Discontinued Medications Sodium Chloride (Nss) 1,000 mls @ 999 mls/hr IV .Q1H1M ISABELL Stop: 06/05/24 20:45 Last Infusion: 06/05/24 21:54 Dose: Infused Documented By: Admin: 06/05/24 20:19 Dose: 999 mls/hr Documented By: DEWEY Magnesium Sulfate/Dextrose (Magnesium Sulfate / D5w) 1 gm in 100 mls @ 100 mls/hr IV Q1H ISABELL Stop: 06/05/24 23:03 Last Infusion: 06/06/24 00:03 Dose: Infused Documented By: Admin: 06/05/24 22:59 Dose: 100 mls/hr Documented By: Infusion: 06/05/24 22:54 Dose: Infused Documented By: Admin: 06/05/24 21:54 Dose: 100 mls/hr Documented By: LOC Potassium Chloride (Potassium Chloride Crtab 20 Meq Tabcr) 40 meq PO NOW STA Stop: 06/05/24 23:32 Last Admin: 06/05/24 23:55 Dose: 40 meq Documented By: [facility] Critical Care Time Critical Care Time: Yes Total Critical Care Time: 57 I have personally spent greater than 57 minutes of critical care time in the direct management of this patient. This includes bedside care, interpretation of diagnostic studies, and testing, discussion with consultants, patient, and family members, and other required patient management activities. This 57 minutes is in excess of all separately billable procedures. Medical Decision Making Laboratory Data Attestation: I reviewed the patient's lab results. 06/05/24 19:46 06/05/24 19:46 Lab Results 06/05/24 06/05/24 06/05/24 Range/Units 19:46 19:48 20:32 WBC 12.82 H (4.8-10.8) K/ul RBC 4.10 L (4.70-6.10) M/uL Hgb 12.5 L (14.0-18.0) g/dl Hct 37.0 L (42.0-52.0) % MCV 90.2 (80.0-100.0) fL MCH 30.5 (25.0-34.0) pg MCHC 33.8 (32.0-36.0) g/dL RDW Std Deviation 45.4 (36.4-46.3) fL RDW Coeff of Cassia 13.7 (11.5-14.5) % Plt Count 225 (130-400) K/uL MPV 8.9 L (9.4-12.4) fL Immature Gran % (Auto) 0.5 % Neut % (Auto) 76.0 % Lymph % (Auto) 13.9 % [place] % (Auto) 6.1 % Eos % (Auto) 2.9 % Baso % (Auto) 0.6 % Neut # (Auto) 9.75 H (1.40-6.50) K/uL Lymph # (Auto) 1.78 (1.20-3.40) K/uL [place] # (Auto) 0.78 H (0.11-0.59) K/uL Eos # (Auto) 0.37 (0.00-0.50) K/uL Baso # (Auto) 0.08 (0.00-0.20) K/uL Immature Gran # (Auto) 0.06 (0.01-0.20) K/uL PT 12.0 (9.0-12.0) Seconds INR 1.1 (0.9-1.1) APTT 27 (21-31) Seconds PTT Ratio 1.0 VBG pH 7.39 (7.36-7.41) VBG pCO2 41 (38-50) mmHg VBG pO2 61 mmHg VBG HCO3 25 mmol/L VBG O2 Saturation 92.1 % VBG Base Excess -0.2 mEq/L Sodium 136 (136-145) mmol/L Potassium 3.6 (3.5-5.1) mmol/L Chloride 105 (98-107) mmol/L Carbon Dioxide 24 (21-32) mmol/L Anion Gap 7 (3-11) BUN 23 (6-23) mg/dl Creatinine 1.68 H (0.6-1.4) mg/dl Est Cr Clr Drug Dosing 32.7 ml/min Est GFR ( Amer) 45.4 ml/min Est GFR (Non-Af Amer) 39.1 ml/min BUN/Creatinine Ratio 13.7 (10-20) Glucose 173 H (70-99(Fasting)) mg/dl Lactate 1.2 (0.4-2.0) mmol/L Calcium 8.0 L (8.6-10.3) mg/dl Magnesium 1.5 L (1.7-2.4) mg/dl Total Bilirubin 0.9 (0.2-1.0) mg/dl AST 17 (13-39) U/L ALT 9 (7-52) U/L Alkaline Phosphatase 232 H (34-104) U/L Ammonia 26.0 (18-72) umol/L Total Creatine Kinase 66 (30-223) U/L Troponin I High Sens 8.9 (0-20) pg/ml Total Protein 6.0 (6.0-8.3) gm/dl Albumin 3.0 L (3.4-5.0) gm/dl Globulin 3.0 (2.5-4.0) gm/dl Albumin/Globulin Ratio 1.0 (0.9-2) Lipase 3 L (11-82) U/L Urine Color Urine Appearance (Clear) Urine pH (4.5-7.5) Ur Specific [place] (1.000-1.030) Urine Protein (Negative) Urine Glucose (UA) (Negative) Urine Ketones (Negative) Urine Blood (Negative) Urine Nitrite (Negative) Urine Bilirubin (Negative) Urine Urobilinogen (Negative) Ur Leukocyte Esterase (Negative) Urine WBC (Auto) (0-5) /hpf Urine RBC (Auto) (0-2) /hpf U Hyaline Cast (Auto) (0-2) /lpf U Epithel Cells (Auto) (0-2) /hpf Urine Bacteria (Auto) (None Seen) Salicylates < 3.0 L (3.0-30) mg/dl Urine Opiates Screen (Neg) Ur Methadone, Qual (Neg) Urine Fentanyl Screen (Neg) Acetaminophen < 3 L (10-30) ug/ml Urine Barbiturates (Neg) Ur Phencyclidine (PCP) (Neg) U Amphetamin/Meth Scrn (Neg) MDMA (Ecstasy) Screen (Neg) U Benzodiazepines Scrn (Neg) Ur Cocaine Metabolite (Neg) U Marijuana (THC) Screen (Neg) Ethyl Alcohol mg/dL 10.2 H (<10.0) mg/dl Adenovirus (PCR) Not Detected (NotDetected) B. pertussis DNA (PCR) Not Detected (NotDetected) B.parapertussis DNA PCR Not Detected (NotDetected) C. pneumoniae DNA (PCR) Not Detected (NotDetected) Coronavirus OC43 (PCR) Not Detected (NotDetected) Coronavirus HKU1 (PCR) Not Detected (NotDetected) Coronavirus 229E (PCR) Not Detected (NotDetected) SARS-CoV-2 (PCR) Not Detected (NotDetected) Coronavirus NL63 (PCR) Not Detected (NotDetected) Human Metapneumovir PCR Not Detected (NotDetected) Influenza Type A (PCR) Not Detected (NotDetected) Influenza Type B (PCR) Not Detected (NotDetected) M. pneumoniae (PCR) Not Detected (NotDetected) Parainfluenza 1 (PCR) Not Detected (NotDetected) Parainfluenza 2 (PCR) Not Detected (NotDetected) Parainfluenza 3 (PCR) Not Detected (NotDetected) Parainfluenza 4 (PCR) Not Detected (NotDetected) RSV (PCR) Not Detected (NotDetected) Entero/Rhino (PCR) Not Detected (NotDetected) Blood Type A Positive Antibody Screen NEGATIVE 06/05/24 Range/Units 22:27 WBC (4.8-10.8) K/ul RBC (4.70-6.10) M/uL Hgb (14.0-18.0) g/dl Hct (42.0-52.0) % MCV (80.0-100.0) fL MCH (25.0-34.0) pg MCHC (32.0-36.0) g/dL RDW Std Deviation (36.4-46.3) fL RDW Coeff of Cassia (11.5-14.5) % Plt Count (130-400) K/uL MPV (9.4-12.4) fL Immature Gran % (Auto) % Neut % (Auto) % Lymph % (Auto) % [place] % (Auto) % Eos % (Auto) % Baso % (Auto) % Neut # (Auto) (1.40-6.50) K/uL Lymph # (Auto) (1.20-3.40) K/uL [place] # (Auto) (0.11-0.59) K/uL Eos # (Auto) (0.00-0.50) K/uL Baso # (Auto) (0.00-0.20) K/uL Immature Gran # (Auto) (0.01-0.20) K/uL PT (9.0-12.0) Seconds INR (0.9-1.1) APTT (21-31) Seconds PTT Ratio VBG pH (7.36-7.41) VBG pCO2 (38-50) mmHg VBG pO2 mmHg VBG HCO3 mmol/L VBG O2 Saturation % VBG Base Excess mEq/L Sodium (136-145) mmol/L Potassium (3.5-5.1) mmol/L Chloride (98-107) mmol/L Carbon Dioxide (21-32) mmol/L Anion Gap (3-11) BUN (6-23) mg/dl Creatinine (0.6-1.4) mg/dl Est Cr Clr Drug Dosing ml/min Est GFR ( Amer) ml/min Est GFR (Non-Af Amer) ml/min BUN/Creatinine Ratio (10-20) Glucose (70-99(Fasting)) mg/dl Lactate (0.4-2.0) mmol/L Calcium (8.6-10.3) mg/dl Magnesium (1.7-2.4) mg/dl Total Bilirubin (0.2-1.0) mg/dl AST (13-39) U/L ALT (7-52) U/L Alkaline Phosphatase (34-104) U/L Ammonia (18-72) umol/L Total Creatine Kinase (30-223) U/L Troponin I High Sens (0-20) pg/ml Total Protein (6.0-8.3) gm/dl Albumin (3.4-5.0) gm/dl Globulin (2.5-4.0) gm/dl Albumin/Globulin Ratio (0.9-2) Lipase (11-82) U/L Urine Color Yellow Urine Appearance Clear (Clear) Urine pH 5.5 (4.5-7.5) Ur Specific [place] 1.014 (1.000-1.030) Urine Protein Negative (Negative) Urine Glucose (UA) Negative (Negative) Urine Ketones Negative (Negative) Urine Blood Negative (Negative) Urine Nitrite Negative (Negative) Urine Bilirubin Negative (Negative) Urine Urobilinogen Negative (Negative) Ur Leukocyte Esterase 2+ H (Negative) Urine WBC (Auto) >50 H (0-5) /hpf Urine RBC (Auto) 0-2 (0-2) /hpf U Hyaline Cast (Auto) 3-5 H (0-2) /lpf U Epithel Cells (Auto) 0-2 (0-2) /hpf Urine Bacteria (Auto) None Seen (None Seen) Salicylates (3.0-30) mg/dl Urine Opiates Screen Neg (Neg) Ur Methadone, Qual Neg (Neg) Urine Fentanyl Screen Neg (Neg) Acetaminophen (10-30) ug/ml Urine Barbiturates Neg (Neg) Ur Phencyclidine (PCP) Neg (Neg) U Amphetamin/Meth Scrn Neg (Neg) MDMA (Ecstasy) Screen Neg (Neg) U Benzodiazepines Scrn Neg (Neg) Ur Cocaine Metabolite Neg (Neg) U Marijuana (THC) Screen Neg (Neg) Ethyl Alcohol mg/dL (<10.0) mg/dl Adenovirus (PCR) (NotDetected) B. pertussis DNA (PCR) (NotDetected) B.parapertussis DNA PCR (NotDetected) C. pneumoniae DNA (PCR) (NotDetected) Coronavirus OC43 (PCR) (NotDetected) Coronavirus HKU1 (PCR) (NotDetected) Coronavirus 229E (PCR) (NotDetected) SARS-CoV-2 (PCR) (NotDetected) Coronavirus NL63 (PCR) (NotDetected) Human Metapneumovir PCR (NotDetected) Influenza Type A (PCR) (NotDetected) Influenza Type B (PCR) (NotDetected) M. pneumoniae (PCR) (NotDetected) Parainfluenza 1 (PCR) (NotDetected) Parainfluenza 2 (PCR) (NotDetected) Parainfluenza 3 (PCR) (NotDetected) Parainfluenza 4 (PCR) (NotDetected) RSV (PCR) (NotDetected) Entero/Rhino (PCR) (NotDetected) Blood Type Antibody Screen Imaging Data Attestation: I personally reviewed and interpreted this imaging study as follows: My Impression: Chest x-ray: Chest x-ray negative. Airway clear. No pneumothorax. No consolidation. No cardiomegaly or cephalization.. No free air under the diaphragm. No fractures of the skeletal structures. Pelvis x-ray: No acute fracture or dislocation Radiologist's Impression: Abdomen/Pelvis CT 06/05/24 19:44 Exam(s): CT ABDOMEN + PELVIS Without Contrast EXAM: CT Abdomen and Pelvis Without Intravenous Contrast CLINICAL HISTORY: Reason for exam: Trauma. TECHNIQUE: Axial computed tomography images of the abdomen and pelvis without intravenous contrast. CTDI is 35 mGy and DLP is 783 mGy-cm. Automated exposure control was utilized for the study. A dose lowering technique was utilized adhering to the principles of ALARA. COMPARISON: CT abdomen/pelvis: 04/11/2023 FINDINGS: Lung bases: Concurrently performed CT chest is reported separately. ABDOMEN: Analysis of abdominal/pelvic viscera and vascular structures is limited in absence of IV contrast. Image quality is also degraded by motion artifact Liver: Unremarkable unenhanced liver Gallbladder and bile ducts: Unremarkable. No calcified stones. No ductal dilation. Pancreas: Diffuse pancreatic atrophy and varying stippled to cores parenchymal calcifications, consistent with chronic pancreatitis. Spleen: Unremarkable. No splenomegaly. Adrenals: Significant left adrenal thickening. Unremarkable right adrenal gland. Kidneys and ureters: A 6.9 x 6.2 x 6.2 cm left renal mildly septated cyst seen similar to previous. A small 3 mm calculus present in the upper pole calyx of the right kidney. No obstructing stones. Mild fullness of the right renal collecting system. Stomach and bowel: Again noted up to 15 mm wall thickening of a moderately distended fluid/gas filled stomach. There is diffuse wall thickening of the colon, could be related to non-distention, although colitis not completely excluded. Stool/gas filled distended rectosigmoid. No obstruction. PELVIS: Appendix: No findings to suggest acute appendicitis. Bladder: A distended bladder with uniform 5.5 mm wall thickness. No stones. Reproductive: Unremarkable as visualized. ABDOMEN and PELVIS: Intraperitoneal space: Unremarkable. No free air. No significant fluid collection. Bones/joints: A T12 vertebral superior endplate wedge compression deformity/fracture with loss of 50% anterior body height (series 1201, image 45). No dislocation. Soft tissues: Unremarkable. Vasculature: Unremarkable. No abdominal aortic aneurysm. Lymph nodes: Unremarkable. No enlarged lymph nodes. Other findings: Inflammatory mass like soft tissue abnormality is incompletely seen posteriorly along the zenaida cleft (series 12 image 349). Fat-containing a very small umbilical hernia. IMPRESSION: A T12 vertebral superior endplate compression fracture with loss of about 50% anterior body height. No CT evidence of solid abdominal/pelvic organ injury. No free intraperitoneal air or free fluid. A distended urinary bladder with uniform mild wall thickness. Posteriorly inflammatory mass like soft tissue abnormality seen incompletely along the cleft. Clinical correlation recommended. Additional chronic findings as described above. . Electronically signed by: Harini Lechuga MD, SANTIAGO 06/05/24 22:[address] 06/05/24 19:44 Exam(s): CT C SPINE EXAM: CT Cervical Spine Without Intravenous Contrast CLINICAL HISTORY: Reason for exam: Trauma. TECHNIQUE: Axial computed tomography images of the cervical spine without intravenous contrast. CTDI is 35 mGy and DLP is 624 mGy-cm. Automated exposure control was utilized for the study. A dose lowering technique was utilized adhering to the principles of ALARA. COMPARISON: CT cervical spine: 02/21/2024. FINDINGS: Vertebrae: Osteopenia. Mildly exaggerated cervical lordosis. A C3 vertebral minimal retrolisthesis. No acute fracture. Discs/spinal canal/neural foramina: Moderately severe degenerative spondylitic changes seen from C3-C6 levels. The greatest amount of disc material is present at C5-C6 with resultant severe right neuroforaminal stenosis. Soft tissues: Unremarkable. Other findings: Lung apices: Severe paraseptal/centrilobular emphysematous changes. . IMPRESSION: No acute cervical spine fracture or subluxation. Degenerative cervical spondylosis . Electronically signed by: Harini Lechuga MD, DABR 06/05/24 21:[address] 06/05/24 19:44 Exam(s): CT CHEST Without Contrast EXAM: CT Chest Without Intravenous Contrast CLINICAL HISTORY: Reason for exam: Trauma. TECHNIQUE: Axial computed tomography images of the chest without intravenous contrast. CTDI is 35 mGy and DLP is 624 mGy-cm. Automated exposure control was utilized for the study. A dose lowering technique was utilized adhering to the principles of ALARA. COMPARISON: CT chest: 02/29/2024 FINDINGS: Diagnostic sensitivity of the exam is reduced by motion artifact. Lungs: Central airways are patent. Bilateral bronchial wall thickening and mild dilatation. Upper lobes predominant severe centrilobular emphysema. Laterally in the posterior right lower lobe along the major fissure a bandlike reticular interstitial thickening is unchanged. In the left lower lobe posteriorly residual interstitial infiltrates remain with interval improvement. Centrally in the right middle lobe a stable 10 mm partially calcified nodule/granuloma (series 9, image 43). No mass. No consolidation. Pleural space: Left posterior mild pleural thickening.. No pneumothorax. No significant effusion. Heart: No cardiomegaly. Significant calcified left coronary arterial atherosclerosis. No significant pericardial effusion. Bones/joints: A mildly displaced subacute fracture of the left 11th rib posteriorly (series 1100, image 77). No acute fracture. No dislocation. Soft tissues: Unremarkable. Circumferential wall thickening of the mid esophagus. Mildly dilated gas-filled upper esophagus. Vasculature: Ectatic ascending aorta: 38 mm in diameter. Diffuse aortic atheromatous calcification. No thoracic aortic aneurysm. Lymph nodes: Unremarkable. No enlarged lymph nodes. Thickening of the adrenal glands, LT>RT. Non obstructive small right renal calculus. Perinephric fat stranding. IMPRESSION: No evidence of acute traumatic intrathoracic injury. Likely a subacute/mildly displaced fracture of the left 11th rib posteriorly (series 11 image 210) . Additional chronic changes as described above. . Electronically signed by: Harini Lechuga MD, S[place] 06/05/24 21:[address] 06/05/24 19:44 Exam(s): CT HEAD Without Contrast EXAM: CT Head Without Intravenous Contrast CLINICAL HISTORY: Reason for exam: Trauma. TECHNIQUE: Axial computed tomography images of the head/brain without intravenous contrast. CTDI is 35 mGy and DLP is 624 mGy-cm. Automated exposure control was utilized for the study. A dose lowering technique was utilized adhering to the principles of ALARA. COMPARISON: CT head: 02/21/2024 FINDINGS: Diagnostic sensitivity of the exam is reduced by motion artifact. Brain: No acute intracranial hemorrhage, mass-effect or midline shift noted. Age-related cortical atrophy with widening of the extra-axial spaces and ventricular dilatation. There are areas of decreased attenuation within the white matter tracts of the supratentorial brain that can be seen with chronic microvascular disease. Bones/joints: Unremarkable. No acute fracture. Soft tissues: Unremarkable. Sinuses: Unremarkable as visualized. No acute sinusitis. Mid nasal septal deviation to the right. Mastoid air cells: Unremarkable as visualized. No mastoid effusion. IMPRESSION: . No acute intracranial abnormality evident. Chronic involutional and ischemic changes of the brain. Electronically signed by: Harini Lechuga MD, S[place] 06/05/24 21:01 PM ECG Data Attestation: I personally reviewed and interpreted this ECG as follows: Rate (beats per minute): 98 Rhythm: + normal sinus ECG Intervals/blocks: + Normal QRS, + Normal CT and + Normal QT-c ECG ST segments: + Normal ST segments MDM Narrative 1939: The patient was evaluated in room C1. A complete history and physical exam was performed Cardiac monitoring: An order was placed for continuous cardiac monitoring. The monitor shows a rate of 100 with sinus rhythm interpreted by me Patient hypoxic on room air supplemental oxygen applied via nasal cannula which improved the patient oxygen saturation. Patient tachycardic and hypotensive. Trauma alert called. 223: Vital signs stable supplemental oxygen via nasal cannula. Labs show leukocytosis of 12.82. Coagulation studies within normal limits. VBG within normal limits. Creatinine is improved to 1.68. Magnesium 1.5. Magnesium repletion started in the emergency department. Imaging shows a subacute mildly displaced fracture of the 11th left rib and a T12 compression fracture, otherwise no traumatic findings. Discussed findings with the son who came to bedside. Patient will be [facility] hospitalist team. 0037: Urine is positive. Patient treated with Rocephin. Impression & Plan Acute UTI, Hypoxia, Hypomagnesemia, Fall Discharge Plan Visit Data Chief Complaint: Trauma Stated Complaint: AMS, Fall ED Provider: Nikita Bowman Discharge Problem: Acute UTI, Hypoxia, Hypomagnesemia, Fall Patient Disposition: Admitted As Inpatient Forms Stand Alone Forms: [facility] Prescriptions Prescriptions: No Action potassium chloride 20 mEq tablet,ER particles/crystals 20 meq PO QAM magnesium oxide 400 mg (241.3 mg magnesium) tablet 400 mg PO AMHS metformin 1,000 mg Tablet 1,000 mg PO QPM cholecalciferol (vitamin D3) [Vitamin D3] 125 mcg (5,000 unit) Tablet 125 mcg PO HS pantoprazole 20 mg tablet,delayed release (DR/EC) 20 mg PO QAM insulin aspart U-100 [Novolog FlexPen U-100 Insulin] 100 unit/mL (3 mL) insulin pen 1 sliding scale dose subcut AC Rx Instructions: per son insulin glargine [Lantus Solostar U-100 Insulin] 100 unit/mL (3 mL) insulin pen 6 unit SUBCUT QAM Rx Instructions: Can not get a hold of son to see when last had. gabapentin 100 mg Capsule 100 mg PO TID Qty: 100 0RF midodrine 5 mg tablet 5 mg PO TID Qty: 90 0RF Rx Instructions: do not give last dose of day after 6PM or within 4 hrs of bedtime Referrals Referrals: Jennifer Soni [Primary Care Provider] - Discharge Problem: Fall Qualifiers: Encounter type: initial encounter Qualified Code(s): W19.XXXA - Unspecified fall, initial encounter
[2024-06-06] MEDS: cefTRIAXone SODIUM 2,000 MG/50 ML BAG IV STA (01:50)
[2024-06-06] MEDS ORDERED: GLUCOSE 10 TAB/TUBE PO PRN (02:11)
[2024-06-06] MEDS ORDERED: GLUCOSE 40% GEL 15 GM TUBE PO PRN (02:11)
[2024-06-06] MEDS ORDERED: DEXTROSE 50% 50 ML SYRINGE IV PRN (02:11)
[2024-06-06] MEDS ORDERED: GLUCAGON FOR INJ 1 MG VIAL SQ PRN (02:11)
--- NOTE | 2024-06-06 02:39 | History & Physical Report ---
Date of Service June 06, 2024 The patient was seen, examined and admitted June 05, 2024 Assessment & Plan (1) Fall: (2) Hypomagnesemia: (3) Acute dehydration: (4) Metabolic encephalopathy: (5) Acute hypotension: (6) DM2 (diabetes mellitus, type 2): (7) GERD (gastroesophageal reflux disease): (8) Closed T12 fracture: (9) Alcohol intoxication: (10) Acute hypotension: (11) Dermatitis of lower extremity: (12) GERD (gastroesophageal reflux disease): Plan Metabolic encephalopathy/status post fall/trauma alert- Unclear etiology, with differential including but not limited to: Alcohol use, dehydration, hypomagnesemia, progression of general debilitation, failure to thrive, others Patient was found to be soiled fecally due to fecal incontinence CT head without contrast negative. CT cervical spine negative. CT chest with questionable left 11th rib fracture CT scan abdomen pelvis with T12 vertebral fracture and 50% height loss Will need PT/OT assessment prior to discharge Will need to be assessed to see if he is still appropriate for his present living situation Most recent admission from 02/27-03/06/2024 for acute kidney injury, hypotension and cellulitis Alcohol use- Alcohol level 10.2 on admission, although patient denies any alcohol use Placed on KENYATTA S protocol with IV Ativan Thiamine 100 mg p.o. every morning Folic acid 1 mg p.o. every morning CKD/dehydration/hypomagnesemia/relative hypokalemia- Baseline creatinine 2.26, with present creatinine 1.68 Status post 1.5 L normal saline bolus from the ED Place on NSS at 80 mL/h x 1 L Repeat laboratories in the a.m. For magnesium 1.5, give magnesium sulfate 2 g IV recheck laboratories in a.m. 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 May benefit long-term from fluocinonide cream with zinc oxide on top Diabetes mellitus- Glucose 173 on admission Continue glargine 6 units subcu every morning Placed on Accu-Cheks with NovoLog SSI Admission and Anticipated Discharge Date Admission Date: June 05, 2024 History of Present Illness Chief Complaint: The patient presents to the emergency department as a trauma alert by EMS, after being found down on the ground all day, initially unresponsive, but became verbal on arrival to the ED. The patient lives by himself, and reportedly was found by his son later on in the day. Primary Care Provider: Jennifer Soni The patient is a 74-year-old male with a past medical history including diabetes mellitus, hypotension, GERD, peripheral neuropathy, vitamin D deficiency, history of urinary retention, and esophageal candidiasis. The patient was initially brought to the emergency department by EMS after being found down all day, by his son, who then called EMS and brought the patient to the ED. The patient was initially reported to be nonresponsive, however, he was able to communicate in the ED. He denies any complaints at this time with assessment, reports that he is been eating and drinking okay and they does live by himself at home, but his son is close by. Allergies Allergy/AdvReac Type Severity Reaction Status Date / Time No Known Allergies Allergy Verified 02/28/24 17:00 Home Medications Medication Instructions Recorded Confirmed Type magnesium oxide 400 mg (241.3 mg 400 mg PO AMHS 04/05/23 02/28/24 History magnesium) tablet cholecalciferol (vitamin D3) 125 125 mcg PO HS 06/18/23 02/28/24 History mcg (5,000 unit) tablet (Vitamin D3) metformin 1,000 mg tablet 1,000 mg PO QPM 06/18/23 02/28/24 History potassium chloride 20 mEq 20 meq PO QAM 11/09/23 02/28/24 History tablet,extended release(part/cryst) insulin aspart U-100 100 unit/mL 1 sliding scale dose subcut AC 02/21/24 02/28/24 History (3 mL) subcutaneous pen (Novolog FlexPen U-100 Insulin aspart) insulin glargine 100 unit/mL (3 6 unit subcut QAM 02/21/24 02/28/24 History mL) subcutaneous pen (Lantus Solostar U-100 Insulin) pantoprazole 20 mg tablet,delayed 20 mg PO QAM 02/21/24 02/28/24 History release gabapentin 100 mg capsule 100 mg PO TID #100 caps 03/06/24 Rx midodrine 5 mg tablet 5 mg PO TID #90 tabs 03/06/24 Rx Past Med/Surg History Problem List (Updated 06/06/24 @ 02:53 by Ryan Earl MD) Dermatitis of lower extremity GERD (gastroesophageal reflux disease) Alcohol intoxication Closed T12 fracture Fall (Acute) Hypoxia (Acute) Pneumonia Hypomagnesemia (Acute) Leukocytosis (Acute) Elevated lactic acid level (Acute) CARLO (acute kidney injury) (Acute) Acute hypotension (Acute) Hypoxia (Acute) Metabolic encephalopathy Exposure to body fluid Cellulitis (Acute) Fecal soiling due to fecal incontinence Acute dehydration (Acute) Acute hypotension (Acute) Acute UTI (Acute) Encounter for pre-operative examination Right nephrolithiasis Weakness Low blood pressure DM2 (diabetes mellitus, type 2) GERD (gastroesophageal reflux disease) Esophageal candidiasis Urinary retention Phimosis Hydronephrosis, right Medical History CARLO (acute kidney injury) C. difficile colitis Hypomagnesemia Septic shock Hypomagnesemia Acute kidney injury superimposed on CKD Sepsis due to urinary tract infection Metabolic encephalopathy 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 GERD (gastroesophageal reflux disease) Diabetes mellitus, type 2 Cataract upcoming surgery for correction Low blood pressure On Midodrine Chronic obstructive pulmonary disease Surgical History History of esophagogastroduodenoscopy (EGD) History of colonoscopy History of tooth extraction Family History Other No family history of adverse response to anesthesia Social History Smoking Status: Current every day smoker Tobacco Type: Cigarettes Cigarettes Per Day: 20; Second Hand Exposure: No; Do You Dip or Chew Tobacco: No; Hx Alcohol Use: No Hx Substance Use: No Preferred Language: Vietnamese Communication Ability: Effective 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 Beliefs That Will Affect Care: None Current Living Situation: Alone Current Living Situation Comment: son lives down the road Other Information That Helps Us Care for You: No Feels Safe at Home: Yes Safety Concerns: Feels Safe At This Time Assistive Devices: Denture - Upper, Denture - Lower, Glasses and Wheelchair Review of Systems Review of Systems: The patient denies chest pain, palpitations, shortness of breath, dyspnea on exertion, cough, lower extremity swelling, sore throat, fevers, chills, sweats, weight change, fatigue, nausea, vomiting, diarrhea , constipation, abdominal pain, pelvic pain, blood in urine or stool, dysuria, urinary frequency or urgency, abnormal bruising or bleeding, focal weakness, numbness or tingling in arms or legs, generalized arthralgias or myalgias, back or neck pain, or night sweats. The review of systems is otherwise negative other than for that already noted above, and at least 10 systems have been reviewed. Physical Exam Physical Exam: The patient is awake, alert and oriented 3, well developed and well nourished, normocephalic and atraumatic, lying in bed and in no acute distress. HEENT--PERRL, EOMI, mucous membranes and oropharynx dry. Neck--supple. No JVD. No bruits. Thyroid normal, trachea midline, no adenopathy. Heart--normal S1 and S2. No murmurs, rubs or gallops. Lungs--clear bilaterally, no respiratory distress, no accessory muscle use. Abdomen--normal bowel sounds and soft. Nontender. Nondistended, no hernias or masses, no organomegaly. Extremities--no cyanosis or clubbing. No edema. Dermatologic--skin is dry Neurologic--cranial nerves II through XII grossly intact. Rheumatologic--normal range of motion. Psychiatric--normal affect. Results & Data Results & Data Vital Signs (Past 12 Hours) Vital Signs Temp Pulse Pulse Pulse Resp BP BP 06/06/24 01:45 06/06/24 01:26 36.4 C L 73 18 96/63 L 06/06/24 00:00 71 16 06/05/24 23:19 75 06/05/24 23:00 78 16 06/05/24 22:15 77 22 06/05/24 22:12 76 20 06/05/24 22:00 99/59 L 06/05/24 22:00 82 20 99/59 L 06/05/24 22:00 99/59 L 06/05/24 21:57 78 19 06/05/24 21:33 79 17 06/05/24 21:30 94/54 L 06/05/24 21:30 94/54 L 06/05/24 21:21 79 18 06/05/24 21:18 06/05/24 21:15 77 20 06/05/24 21:00 99/61 L 06/05/24 20:48 81 18 06/05/24 20:45 81 19 06/05/24 20:30 82 18 06/05/24 20:30 102/63 06/05/24 20:30 102/63 06/05/24 20:20 84 16 06/05/24 20:18 86 21 06/05/24 20:18 37 C 105 H 22 06/05/24 20:18 37.0 C 101 H 18 95/60 L 06/05/24 20:17 95/60 L 06/05/24 20:17 95/60 L 06/05/24 19:51 98 H 21 06/05/24 19:44 112 H 06/05/24 19:44 06/05/24 19:36 103 H 28 H 06/05/24 19:30 91/56 L 06/05/24 19:24 103 H 36 H 06/05/24 19:20 06/05/24 19:20 37 C 102 H 18 112/62 06/05/24 19:16 107 H BP Pulse Ox O2 Del Method O2 Flow Rate 06/06/24 01:45 Room Air 06/06/24 01:26 93 Room Air 06/06/24 00:00 105/67 99 Room Air 06/05/24 23:19 06/05/24 23:00 106/67 98 Room Air 06/05/24 22:15 91 Room Air 06/05/24 22:12 92 06/05/24 22:00 06/05/24 22:00 92 Room Air 06/05/24 22:00 06/05/24 21:57 94 06/05/24 21:33 81 L 06/05/24 21:30 06/05/24 21:30 06/05/24 21:21 06/05/24 21:18 91 Room Air 06/05/24 21:15 06/05/24 21:00 06/05/24 20:48 96 06/05/24 20:45 96 06/05/24 20:30 96 06/05/24 20:30 06/05/24 20:30 06/05/24 20:20 95/60 L 95 Nasal Cannula 2 06/05/24 20:18 94 06/05/24 20:18 101/67 94 Nasal Cannula 2 06/05/24 20:18 96 Nasal Cannula 2 06/05/24 20:17 06/05/24 20:17 06/05/24 19:51 92 06/05/24 19:44 99 Nasal Cannula 2 06/05/24 19:44 88 L Nasal Cannula 0 06/05/24 19:36 89 L 06/05/24 19:30 06/05/24 19:24 90 06/05/24 19:20 90 Room Air 06/05/24 19:20 91 Room Air 06/05/24 19:16 Laboratory Results Laboratory Results WBC 12.82 K/ul (4.8-10.8) H 06/05/24 19:46 RBC 4.10 M/uL (4.70-6.10) L 06/05/24 19:46 Hgb 12.5 g/dl (14.0-18.0) L 06/05/24 19:46 Hct 37.0 % (42.0-52.0) L 06/05/24 19:46 MCV 90.2 fL (80.0-100.0) 06/05/24 19:46 MCH 30.5 pg (25.0-34.0) 06/05/24 19:46 MCHC 33.8 g/dL (32.0-36.0) 06/05/24 19:46 RDW Std Deviation 45.4 fL (36.4-46.3) 06/05/24 19:46 RDW Coeff of Cassia 13.7 % (11.5-14.5) 06/05/24 19:46 Plt Count 225 K/uL (130-400) 06/05/24 19:46 MPV 8.9 fL (9.4-12.4) L 06/05/24 19:46 Immature Gran % (Auto) 0.5 % 06/05/24 19:46 Neut % (Auto) 76.0 % 06/05/24 19:46 Lymph % (Auto) 13.9 % 06/05/24 19:46 [place] % (Auto) 6.1 % 06/05/24 19:46 Eos % (Auto) 2.9 % 06/05/24 19:46 Baso % (Auto) 0.6 % 06/05/24 19:46 Neut # (Auto) 9.75 K/uL (1.40-6.50) H 06/05/24 19:46 Lymph # (Auto) 1.78 K/uL (1.20-3.40) 06/05/24 19:46 [place] # (Auto) 0.78 K/uL (0.11-0.59) H 06/05/24 19:46 Eos # (Auto) 0.37 K/uL (0.00-0.50) 06/05/24 19:46 Baso # (Auto) 0.08 K/uL (0.00-0.20) 06/05/24 19:46 Immature Gran # (Auto) 0.06 K/uL (0.01-0.20) 06/05/24 19:46 PT 12.0 Seconds (9.0-12.0) 06/05/24 19:46 INR 1.1 (0.9-1.1) 06/05/24 19:46 APTT 27 Seconds (21-31) 06/05/24 19:46 PTT Ratio 1.0 06/05/24 19:46 VBG pH 7.39 (7.36-7.41) 06/05/24 19:48 VBG pCO2 41 mmHg (38-50) 06/05/24 19:48 VBG pO2 61 mmHg 06/05/24 19:48 VBG HCO3 25 mmol/L 06/05/24 19:48 VBG O2 Saturation 92.1 % 06/05/24 19:48 VBG Base Excess -0.2 mEq/L 06/05/24 19:48 Sodium 136 mmol/L (136-145) 06/05/24 19:46 Potassium 3.6 mmol/L (3.5-5.1) 06/05/24 19:46 Chloride 105 mmol/L (98-107) 06/05/24 19:46 Carbon Dioxide 24 mmol/L (21-32) 06/05/24 19:46 Anion Gap 7 (3-11) 06/05/24 19:46 BUN 23 mg/dl (6-23) 06/05/24 19:46 Creatinine 1.68 mg/dl (0.6-1.4) H 06/05/24 19:46 Est Cr Clr Drug Dosing 32.7 ml/min 06/05/24 19:46 Est GFR ( Amer) 45.4 ml/min 06/05/24 19:46 Est GFR (Non-Af Amer) 39.1 ml/min 06/05/24 19:46 BUN/Creatinine Ratio 13.7 (10-20) 06/05/24 19:46 Glucose 173 mg/dl (70-99(Fasting)) H 06/05/24 19:46 Lactate 1.2 mmol/L (0.4-2.0) 06/05/24 19:46 Calcium 8.0 mg/dl (8.6-10.3) L 06/05/24 19:46 Magnesium 1.5 mg/dl (1.7-2.4) L 06/05/24 19:46 Total Bilirubin 0.9 mg/dl (0.2-1.0) 06/05/24 19:46 AST 17 U/L (13-39) 06/05/24 19:46 ALT 9 U/L (7-52) 06/05/24 19:46 Alkaline Phosphatase 232 U/L (34-104) H 06/05/24 19:46 Ammonia 26.0 umol/L (18-72) 06/05/24 19:48 Total Creatine Kinase 66 U/L (30-223) 06/05/24 19:46 Troponin I High Sens 8.9 pg/ml (0-20) 06/05/24 19:46 Total Protein 6.0 gm/dl (6.0-8.3) 06/05/24 19:46 Albumin 3.0 gm/dl (3.4-5.0) L 06/05/24 19:46 Globulin 3.0 gm/dl (2.5-4.0) 06/05/24 19:46 Albumin/Globulin Ratio 1.0 (0.9-2) 06/05/24 19:46 Lipase 3 U/L (11-82) L 06/05/24 19:46 Urine Color Yellow 06/05/24 22:27 Urine Appearance Clear (Clear) 06/05/24 22:27 Urine pH 5.5 (4.5-7.5) 06/05/24 22:27 Ur Specific [place] 1.014 (1.000-1.030) 06/05/24 22:27 Urine Protein Negative (Negative) 06/05/24 22:27 Urine Glucose (UA) Negative (Negative) 06/05/24 22:27 Urine Ketones Negative (Negative) 06/05/24 22:27 Urine Blood Negative (Negative) 06/05/24 22:27 Urine Nitrite Negative (Negative) 06/05/24 22:27 Urine Bilirubin Negative (Negative) 06/05/24 22:27 Urine Urobilinogen Negative (Negative) 06/05/24 22:27 Ur Leukocyte Esterase 2+ (Negative) H 06/05/24 22:27 Urine WBC (Auto) >50 /hpf (0-5) H 06/05/24 22:27 Urine RBC (Auto) 0-2 /hpf (0-2) 06/05/24 22:27 U Hyaline Cast (Auto) 3-5 /lpf (0-2) H 06/05/24 22:27 U Epithel Cells (Auto) 0-2 /hpf (0-2) 06/05/24 22:27 Urine Bacteria (Auto) None Seen (None Seen) 06/05/24 22:27 Salicylates < 3.0 mg/dl (3.0-30) L 06/05/24 19:46 Urine Opiates Screen Neg (Neg) 06/05/24 22:27 Ur Methadone, Qual Neg (Neg) 06/05/24 22:27 Urine Fentanyl Screen Neg (Neg) 06/05/24 22:27 Acetaminophen < 3 ug/ml (10-30) L 06/05/24 19:46 Urine Barbiturates Neg (Neg) 06/05/24 22:27 Ur Phencyclidine (PCP) Neg (Neg) 06/05/24 22:27 U Amphetamin/Meth Scrn Neg (Neg) 06/05/24 22:27 MDMA (Ecstasy) Screen Neg (Neg) 06/05/24 22:27 U Benzodiazepines Scrn Neg (Neg) 06/05/24 22:27 Ur Cocaine Metabolite Neg (Neg) 06/05/24 22:27 U Marijuana (THC) Screen Neg (Neg) 06/05/24 22:27 Ethyl Alcohol mg/dL 10.2 mg/dl (<10.0) H 06/05/24 19:46 Adenovirus (PCR) Not Detected (NotDetected) 06/05/24 20:32 B. pertussis DNA (PCR) Not Detected (NotDetected) 06/05/24 20:32 B.parapertussis DNA PCR Not Detected (NotDetected) 06/05/24 20:32 C. pneumoniae DNA (PCR) Not Detected (NotDetected) 06/05/24 20:32 Coronavirus OC43 (PCR) Not Detected (NotDetected) 06/05/24 20:32 Coronavirus HKU1 (PCR) Not Detected (NotDetected) 06/05/24 20:32 Coronavirus 229E (PCR) Not Detected (NotDetected) 06/05/24 20:32 SARS-CoV-2 (PCR) Not Detected (NotDetected) 06/05/24 20:32 Coronavirus NL63 (PCR) Not Detected (NotDetected) 06/05/24 20:32 Human Metapneumovir PCR Not Detected (NotDetected) 06/05/24 20:32 Influenza Type A (PCR) Not Detected (NotDetected) 06/05/24 20:32 Influenza Type B (PCR) Not Detected (NotDetected) 06/05/24 20:32 M. pneumoniae (PCR) Not Detected (NotDetected) 06/05/24 20:32 Parainfluenza 1 (PCR) Not Detected (NotDetected) 06/05/24 20:32 Parainfluenza 2 (PCR) Not Detected (NotDetected) 06/05/24 20:32 Parainfluenza 3 (PCR) Not Detected (NotDetected) 06/05/24 20:32 Parainfluenza 4 (PCR) Not Detected (NotDetected) 06/05/24 20:32 RSV (PCR) Not Detected (NotDetected) 06/05/24 20:32 Entero/Rhino (PCR) Not Detected (NotDetected) 06/05/24 20:32 Blood Type A Positive 06/05/24 19:46 Antibody Screen NEGATIVE 06/05/24 19:46 Impressions Abdomen/Pelvis CT 06/05/24 19:44 Exam(s): CT ABDOMEN + PELVIS Without Contrast EXAM: CT Abdomen and Pelvis Without Intravenous Contrast CLINICAL HISTORY: Reason for exam: Trauma. TECHNIQUE: Axial computed tomography images of the abdomen and pelvis without intravenous contrast. CTDI is 35 mGy and DLP is 783 mGy-cm. Automated exposure control was utilized for the study. A dose lowering technique was utilized adhering to the principles of ALARA. COMPARISON: CT abdomen/pelvis: 04/11/2023 FINDINGS: Lung bases: Concurrently performed CT chest is reported separately. ABDOMEN: Analysis of abdominal/pelvic viscera and vascular structures is limited in absence of IV contrast. Image quality is also degraded by motion artifact Liver: Unremarkable unenhanced liver Gallbladder and bile ducts: Unremarkable. No calcified stones. No ductal dilation. Pancreas: Diffuse pancreatic atrophy and varying stippled to cores parenchymal calcifications, consistent with chronic pancreatitis. Spleen: Unremarkable. No splenomegaly. Adrenals: Significant left adrenal thickening. Unremarkable right adrenal gland. Kidneys and ureters: A 6.9 x 6.2 x 6.2 cm left renal mildly septated cyst seen similar to previous. A small 3 mm calculus present in the upper pole calyx of the right kidney. No obstructing stones. Mild fullness of the right renal collecting system. Stomach and bowel: Again noted up to 15 mm wall thickening of a moderately distended fluid/gas filled stomach. There is diffuse wall thickening of the colon, could be related to non-distention, although colitis not completely excluded. Stool/gas filled distended rectosigmoid. No obstruction. PELVIS: Appendix: No findings to suggest acute appendicitis. Bladder: A distended bladder with uniform 5.5 mm wall thickness. No stones. Reproductive: Unremarkable as visualized. ABDOMEN and PELVIS: Intraperitoneal space: Unremarkable. No free air. No significant fluid collection. Bones/joints: A T12 vertebral superior endplate wedge compression deformity/fracture with loss of 50% anterior body height (series 1201, image 45). No dislocation. Soft tissues: Unremarkable. Vasculature: Unremarkable. No abdominal aortic aneurysm. Lymph nodes: Unremarkable. No enlarged lymph nodes. Other findings: Inflammatory mass like soft tissue abnormality is incompletely seen posteriorly along the cleft (series 12 image 349). Fat-containing a very small umbilical hernia. IMPRESSION: A T12 vertebral superior endplate compression fracture with loss of about 50% anterior body height. No CT evidence of solid abdominal/pelvic organ injury. No free intraperitoneal air or free fluid. A distended urinary bladder with uniform mild wall thickness. Posteriorly inflammatory mass like soft tissue abnormality seen incompletely along the cleft. Clinical correlation recommended. Additional chronic findings as described above. . Electronically signed by: Harini Lechuga MD, SANTIAGO 06/05/24 22:[address] 06/05/24 19:44 Exam(s): CT C SPINE EXAM: CT Cervical Spine Without Intravenous Contrast CLINICAL HISTORY: Reason for exam: Trauma. TECHNIQUE: Axial computed tomography images of the cervical spine without intravenous contrast. CTDI is 35 mGy and DLP is 624 mGy-cm. Automated exposure control was utilized for the study. A dose lowering technique was utilized adhering to the principles of ALARA. COMPARISON: CT cervical spine: 02/21/2024. FINDINGS: Vertebrae: Osteopenia. Mildly exaggerated cervical lordosis. A C3 vertebral minimal retrolisthesis. No acute fracture. Discs/spinal canal/neural foramina: Moderately severe degenerative spondylitic changes seen from C3-C6 levels. The greatest amount of disc material is present at C5-C6 with resultant severe right neuroforaminal stenosis. Soft tissues: Unremarkable. Other findings: Lung apices: Severe paraseptal/centrilobular emphysematous changes. . IMPRESSION: No acute cervical spine fracture or subluxation. Degenerative cervical spondylosis . Electronically signed by: Harini Lechuga MD, SANTIAGO 06/05/24 21:[address] 06/05/24 19:44 Exam(s): CT CHEST Without Contrast EXAM: CT Chest Without Intravenous Contrast CLINICAL HISTORY: Reason for exam: Trauma. TECHNIQUE: Axial computed tomography images of the chest without intravenous contrast. CTDI is 35 mGy and DLP is 624 mGy-cm. Automated exposure control was utilized for the study. A dose lowering technique was utilized adhering to the principles of ALARA. COMPARISON: CT chest: 02/29/2024 FINDINGS: Diagnostic sensitivity of the exam is reduced by motion artifact. Lungs: Central airways are patent. Bilateral bronchial wall thickening and mild dilatation. Upper lobes predominant severe centrilobular emphysema. Laterally in the posterior right lower lobe along the major fissure a bandlike reticular interstitial thickening is unchanged. In the left lower lobe posteriorly residual interstitial infiltrates remain with interval improvement. Centrally in the right middle lobe a stable 10 mm partially calcified nodule/granuloma (series 9, image 43). No mass. No consolidation. Pleural space: Left posterior mild pleural thickening.. No pneumothorax. No significant effusion. Heart: No cardiomegaly. Significant calcified left coronary arterial atherosclerosis. No significant pericardial effusion. Bones/joints: A mildly displaced subacute fracture of the left 11th rib posteriorly (series 1100, image 77). No acute fracture. No dislocation. Soft tissues: Unremarkable. Circumferential wall thickening of the mid esophagus. Mildly dilated gas-filled upper esophagus. Vasculature: Ectatic ascending aorta: 38 mm in diameter. Diffuse aortic atheromatous calcification. No thoracic aortic aneurysm. Lymph nodes: Unremarkable. No enlarged lymph nodes. Thickening of the adrenal glands, LT>RT. Non obstructive small right renal calculus. Perinephric fat stranding. IMPRESSION: No evidence of acute traumatic intrathoracic injury. Likely a subacute/mildly displaced fracture of the left 11th rib posteriorly (series 11 image 210) . Additional chronic changes as described above. . Electronically signed by: Harini Lechuga MD, ANDREAR 06/05/24 21:[address] 06/05/24 19:44 Exam(s): CT HEAD Without Contrast EXAM: CT Head Without Intravenous Contrast CLINICAL HISTORY: Reason for exam: Trauma. TECHNIQUE: Axial computed tomography images of the head/brain without intravenous contrast. CTDI is 35 mGy and DLP is 624 mGy-cm. Automated exposure control was utilized for the study. A dose lowering technique was utilized adhering to the principles of ALARA. COMPARISON: CT head: 02/21/2024 FINDINGS: Diagnostic sensitivity of the exam is reduced by motion artifact. Brain: No acute intracranial hemorrhage, mass-effect or midline shift noted. Age-related cortical atrophy with widening of the extra-axial spaces and ventricular dilatation. There are areas of decreased attenuation within the white matter tracts of the supratentorial brain that can be seen with chronic microvascular disease. Bones/joints: Unremarkable. No acute fracture. Soft tissues: Unremarkable. Sinuses: Unremarkable as visualized. No acute sinusitis. Mid nasal septal deviation to the right. Mastoid air cells: Unremarkable as visualized. No mastoid effusion. IMPRESSION: . No acute intracranial abnormality evident. Chronic involutional and ischemic changes of the brain. Electronically signed by: Harini Lechuga MD, SANTIAGO 06/05/24 21:01 PM Code Status & VTE Plan Code Status Full code VTE Prophylaxis Plan VTE Prophylaxis will be ordered: Yes PG Care Time/CCT Total # of Minutes Spent Total Time Spent with Patient: Total time spent is greater than 50% in coordination of care (as documented) at patient's floor/unit and/or counseling patient: Coding Level of Care Code 39880 INT INP/OBS CARE 3/75MIN Diagnoses Fall W19.XXXA Encounter type: initial encounter Hypomagnesemia E83.42 Acute dehydration E86.0 Metabolic encephalopathy G93.41 Acute hypotension I95.9 Type 2 diabetes mellitus without complication, without long-term current use of insulin E11.9 Diabetes mellitus senior living insulin use: without long chain beamer use Diabetes mellitus complication status: without complication Gastroesophageal reflux disease, unspecified whether esophagitis present K21.9 Esophagitis presence: esophagitis presence not specified Closed T12 fracture S22.089A Alcohol intoxication F10.929 Dermatitis of lower extremity L30.9 (1) Fall Encounter type: initial encounter Qualified Code(s): W19.XXXA - Unspecified fall, initial encounter (6) DM2 (diabetes mellitus, type 2) Diabetes mellitus senior living insulin use: without senior living use Diabetes mellitus complication status: without complication Qualified Code(s): E11.9 - Type 2 diabetes mellitus without complications (7) GERD (gastroesophageal reflux disease) Esophagitis presence: esophagitis presence not specified Qualified Code(s): K21.9 - Gastro-esophageal reflux disease without esophagitis
[2024-06-06] MEDS: SODIUM CHLORIDE 0.9% 1,000 ML IV SCH (02:43)
[2024-06-06 05:43] LABS: Basophils # (auto) 0.07 K/uL (0.00-0.20); Basophils % (auto) 0.7 %; Eosinophils # (auto) 0.19 K/uL (0.00-0.50); Eosinophils % (auto) 1.9 %; Hematocrit (blood only) 36.8 % (42.0-52.0); Hemoglobin 12.3 g/dl (14.0-18.0); Immature Granulocytes # (auto) 0.04 K/uL (0.01-0.20); Immature Granulocytes % (auto) 0.4 %; Lymphocytes # (auto) 2.47 K/uL (1.20-3.40); Lymphocytes % (auto) 24.6 %; Mean Corpuscular Hgb Conc 33.4 g/dL (32.0-36.0); Mean Corpuscular Volume 89.8 fL (80.0-100.0); Mean Platelet Volume 9.2 fL (9.4-12.4); Monocytes # (auto) 0.76 K/uL (0.11-0.59); Monocytes % (auto) 7.6 %; Neutrophils # (auto) 6.52 K/uL (1.40-6.50); Neutrophils % (auto) 64.8 %; Platelet Count 224 K/uL (130-400); RDW Coefficient of Variation 13.6 % (11.5-14.5); RDW Standard Deviation 44.7 fL (36.4-46.3); White Blood Count 10.05 K/ul (4.8-10.8)
[2024-06-06 06:07] LABS: Albumin Level 2.8 gm/dl (3.4-5.0); BUN Creatinine Ratio 15.2 (10-20); Calcium 7.9 mg/dl (8.6-10.3); Creatinine Clr Calc Pharmacy 39.8 ml/min; Est GFR (African American) 57.6 ml/min; Est GFR (Non-African American) 49.7 ml/min; Phosphorus 2.8 mg/dl (2.5-4.9); Potassium 4.4 mmol/L (3.5-5.1)
[2024-06-06] MEDS: GABAPENTIN 100 MG CAP PO SCH (07:33)
[2024-06-06] MEDS: MIDODRINE HCL 2.5 MG TAB PO SCH (07:34)
[2024-06-06] MEDS: POTASSIUM CHLORIDE CRTAB 20 MEQ TABCR PO SCH (07:34)
[2024-06-06] MEDS: MAGNESIUM OXIDE 400 MG TAB PO SCH (07:34)
[2024-06-06] MEDS: HEPARIN SOD 5,000 UNIT/0.5 ML VIAL SQ SCH (07:35)
[2024-06-06] MEDS: PANTOprazole 40 MG TAB PO SCH (07:35)
[2024-06-06] MEDS: THIAMINE HCL 100 MG TAB PO SCH (07:35)
[2024-06-06] MEDS: EUCERIN CR 120 GM JAR EXT SCH (07:36)
[2024-06-06] MEDS: FOLIC ACID 1 MG TAB PO SCH (07:36)
--- NOTE | 2024-06-06 08:30 | XRay Report ---
SINGLE VIEW CHEST CLINICAL HISTORY: Trauma. FINDINGS: 2 AP, portable, upright chest radiographs are compared to study dated 02/28/2024 and correla rex with chest CT dated 02/29/2024. The cardiomediastinal silhouette is unremarkable noting atheroscle rotic calcification of the thoracic aorta. Advanced emphysema and chronic interstitial thickening is similar to previous. Foci of parenchymal scarring are seen throughout both lungs. Airspace opacities are seen at the left lung base. No large pleural effusion or pneumothorax is identified. The skeletal structures are osteopenic. There is a right anterior 10th rib fracture. IMPRESSION: 1. Advanced emphysema. 2. Asymmetric opacities at the left lung base could represent scarring/atelectasis versus a mild pneu monitis. Correlate clinically. 3. Acute to subacute right 10th rib fracture. 4. No pneumothorax is seen. ACT 112: Negative or not required by law. Electronically signed by: Norris Pulido M.D. 06/06/2024 8:28 AM
[2024-06-06] MEDS: INSULIN ASPART PER UNIT CHARGE SC SCH (08:58)
[2024-06-06] MEDS: LANTUS PER UNIT CHARGE SQ SCH (08:59)
[2024-06-06] MEDS ORDERED: PANTOprazole 40 MG TAB PO SCH (09:00)
[2024-06-06 09:41] LABS: Estimated Average Glucose 192 mg/dl; Hemoglobin A1C 8.3 % (4.5-5.6)
--- NOTE | 2024-06-06 10:42 | XRay Report ---
SINGLE VIEW PELVIS CLINICAL HISTORY: Trauma. FINDINGS: An AP, portable, supine view of the pelvis is compared to study dated 02/21/2024. The skelet al structures are osteopenic. There is no radiographic evidence of acute fracture involving the hips or bony pelvis. Mild arthritic change is seen in the hips. There is mild degenerative sclerosis of th e sacroiliac joints. The overlying soft tissues are within normal limits. Phleboliths project over th e pelvis and scrotum. IMPRESSION: No acute bony abnormality is identified. Electronically signed by: Norris Pulido M.D. 06/06/2024 10:40 AM
--- NOTE | 2024-06-06 12:55 | Hospitalist Progress Note ---
Date of Service June 06, 2024 Assessment & Plan (1) Fall: (2) Hypomagnesemia: (3) Acute dehydration: (4) Metabolic encephalopathy: (5) Acute hypotension: (6) DM2 (diabetes mellitus, type 2): (7) GERD (gastroesophageal reflux disease): (8) Closed T12 fracture: (9) Alcohol intoxication: (10) Dermatitis of lower extremity: Plan Metabolic encephalopathy/status post fall/trauma alert- Unclear etiology, with differential including but not limited to: Alcohol use, dehydration, hypomagnesemia, progression of general debilitation, failure to thrive, others Patient was found to be soiled fecally due to fecal incontinence CT head without contrast negative. CT cervical spine negative. CT chest with questionable left 11th rib fracture CT scan abdomen pelvis with T12 vertebral fracture and 50% height loss Will need PT/OT assessment prior to discharge Will need to be assessed to see if he is still appropriate for his present living situation I discussed with his son Miguel who agrees that he may need an alternative living arrangement. This is the third time he has been found down, covered in excretment Alcohol use- Alcohol level 10.2 on admission, although patient denies any alcohol use Placed on KENYATTA S protocol with IV Ativan Thiamine 100 mg p.o. every morning Folic acid 1 mg p.o. every morning CKD/dehydration/hypomagnesemia/relative hypokalemia- Baseline creatinine 2.26, with present creatinine 1.68 Status post 1.5 L normal saline bolus from the ED Place on NSS at 80 mL/h x 1 L Repeat laboratories in the a.m. For magnesium 1.5, give magnesium sulfate 2 g IV recheck laboratories in a.m. 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 May benefit long-term from fluocinonide cream with zinc oxide on top Diabetes mellitus- Glucose 173 on admission Continue glargine 6 units subcu every morning Placed on Accu-Cheks with NovoLog SSI I discussed with his son Miguel who agrees that he may need an alternative living arrangement. Will consult Social work Admission and Anticipated Discharge Date Admission Date: June 05, 2024 Subjective patient seen and examined, awake and alert Review of Systems Review of Systems: All systems reviewed are negative, apart from the ones contained in the history. Physical Exam Physical Exam: The patient is awake, alert and oriented 3, well developed and well nourished, normocephalic and atraumatic, lying in bed and in no acute distress. HEENT--PERRL, EOMI, mucous membranes and oropharynx mildly dry Neck--supple. No JVD. No bruits. Thyroid normal, trachea midline, no adenopathy. Heart--normal S1 and S2. No murmurs, rubs or gallops. Lungs--clear bilaterally, no respiratory distress, no accessory muscle use. Abdomen--normal bowel sounds and soft. Extremities--no cyanosis or clubbing. No edema. Dermatologic--normal skin turgor, normal color, no abnormal lymph nodes, no rash. Neurologic--cranial nerves II through XII grossly intact. Rheumatologic--normal range of motion. Psychiatric--normal affect. Results & Data Results & Data Vital Signs (Past 12 Hours) Vital Signs Temp Pulse Pulse Resp BP Pulse Ox O2 Del Method 06/06/24 12:31 97.7 F 72 20 104/62 94 Room Air 06/06/24 08:25 97.7 F 77 16 92/56 L 93 Room Air 06/06/24 07:35 Room Air 06/06/24 07:00 65 06/06/24 01:45 Room Air 06/06/24 01:33 70 06/06/24 01:26 97.5 F L 73 18 96/63 L 93 Room Air PG Care Time/CCT Total # of Minutes Spent Total Time Spent with Patient: Total time spent is greater than 50% in coordination of care (as documented) at patient's floor/unit and/or counseling patient: Coding Level of Care Code 87140 SUB INP/OBS CARE 2/35MIN Diagnoses Fall W19.XXXA Encounter type: initial encounter Hypomagnesemia E83.42 Acute dehydration E86.0 Metabolic encephalopathy G93.41 Acute hypotension I95.9 Type 2 diabetes mellitus without complication, without long-term current use of insulin E11.9 Diabetes mellitus shelter insulin use: without computer terminal operator use Diabetes mellitus complication status: without complication Gastroesophageal reflux disease, unspecified whether esophagitis present K21.9 Esophagitis presence: esophagitis presence not specified Closed T12 fracture S22.089A Alcohol intoxication F10.929 Dermatitis of lower extremity L30.9 Time Spent (min) 35 (1) Fall Encounter type: initial encounter Qualified Code(s): W19.XXXA - Unspecified fall, initial encounter (6) DM2 (diabetes mellitus, type 2) Diabetes mellitus shelter insulin use: without shelter use Diabetes mellitus complication status: without complication Qualified Code(s): E11.9 - Type 2 diabetes mellitus without complications (7) GERD (gastroesophageal reflux disease) Esophagitis presence: esophagitis presence not specified Qualified Code(s): K21.9 - Gastro-esophageal reflux disease without esophagitis
[2024-06-06] MEDS: CARBOHYDRATES FOR HYPOGLYCEMIA PO PRN (16:55)
[2024-06-06] MEDS: CHOLECALCIFEROL 125 MCG (5,000 UNITS) TAB PO SCH (21:16)
[2024-06-07 05:33] LABS: Basophils # (auto) 0.06 K/uL (0.00-0.20); Basophils % (auto) 0.8 %; Eosinophils # (auto) 0.43 K/uL (0.00-0.50); Eosinophils % (auto) 5.9 %; Hematocrit (blood only) 33.7 % (42.0-52.0); Hemoglobin 11.3 g/dl (14.0-18.0); Immature Granulocytes # (auto) 0.02 K/uL (0.01-0.20); Immature Granulocytes % (auto) 0.3 %; Lymphocytes # (auto) 2.26 K/uL (1.20-3.40); Lymphocytes % (auto) 31.1 %; Mean Corpuscular Hemoglobin 30.5 pg (25.0-34.0); Mean Corpuscular Hgb Conc 33.5 g/dL (32.0-36.0); Mean Corpuscular Volume 90.8 fL (80.0-100.0); Mean Platelet Volume 9.3 fL (9.4-12.4); Monocytes # (auto) 0.51 K/uL (0.11-0.59); Neutrophils # (auto) 3.99 K/uL (1.40-6.50); Neutrophils % (auto) 54.9 %; Platelet Count 223 K/uL (130-400); RDW Coefficient of Variation 13.8 % (11.5-14.5); RDW Standard Deviation 46.1 fL (36.4-46.3); Red Blood Count 3.71 M/uL (4.70-6.10); White Blood Count 7.27 K/ul (4.8-10.8)
[2024-06-07 05:49] LABS: Albumin Level 2.6 gm/dl (3.4-5.0); BUN Creatinine Ratio 14.1 (10-20); Calcium 7.8 mg/dl (8.6-10.3); Creatinine Clr Calc Pharmacy 40.6 ml/min; Est GFR (African American) 59.1 ml/min; Magnesium 1.9 mg/dl (1.7-2.4); Phosphorus 2.6 mg/dl (2.5-4.9); Potassium 4.2 mmol/L (3.5-5.1)
[2024-06-07 12:24] LABS: Cdiff Toxin B Gene (2yr or >) Positive Cdiff Gene (Neg)
[2024-06-07 12:28] LABS: Adenovirus F 40/41 PCR Not Detected (NotDetected); Astrovirus PCR Not Detected (NotDetected); Campylobacter PCR Not Detected (NotDetected); Cryptosporidium PCR Not Detected (NotDetected); Cyclospora cayetanensis PCR Not Detected (NotDetected); Entamoeba histolytica PCR Not Detected (NotDetected); Enteroaggregative E.coli(EAEC) Not Detected (NotDetected); Enteropathogenic E.coli (EPEC) Not Detected (NotDetected); Enterotoxigenic E.coli (ETEC) Not Detected (NotDetected); Giardia lamblia PCR Not Detected (NotDetected); Plesiomonas shigelloides PCR Not Detected (NotDetected); Rotavirus A PCR Not Detected (NotDetected); Salmonella PCR Not Detected (NotDetected); Sapovirus PCR Not Detected (NotDetected); Shiga-like Toxin E.coli (STEC) Not Detected (NotDetected); Shigella/Enteroinvasive E.coli Not Detected (NotDetected); Vibrio cholerae PCR Not Detected (NotDetected); Vibrio species PCR Not Detected (NotDetected); Yersinia enterocolitica PCR Not Detected (NotDetected)
[2024-06-07 12:42] LABS: Norovirus GI/GII PCR DETECTED (NotDetected)
--- NOTE | 2024-06-07 12:58 | CT Scan Report ---
THORACIC SPINE CT CT DOSE: 1098.94 mGy.cm HISTORY: T12 fx TECHNIQUE: Multiaxial CT images of the thoracic spine were performed and reformatted in the sagittal and coronal plane without the use of contrast. A dose lowering technique was utilized adhering to th e principles of ALARA. COMPARISON: Abdomen and pelvis CT 06/05/2024. FINDINGS: Trace left pleural effusion. Partially visualized left renal cyst. Right-sided nephrolithia sis. Pancreatic calcifications are partially visualized. Emphysema. No pneumothorax. Mild to moderate superior endplate compression fracture at T12 again noted with 3 mm of retropulsion of the posterior cortex. This results in mild central canal narrowing at this level. There is up to 40% loss of heigh t anteriorly. There is sclerosis within the fracture site suggestive of a subacute fracture. No addit ional fractures within the thoracic spine. Mild degenerative disc disease is noted. The posterior tash ments are intact. There is a healing left posterior 11th rib fracture. There is a healing right L1 tr ansverse process fracture which is nondisplaced. IMPRESSION: 1. Redemonstration of the mild to moderate superior endplate compression fracture at T12 with 3 mm of retropulsion. This results in mild central canal narrowing at this level. This favors a subacute fra cture. 2. There is a healing left posterior 11th rib fracture. 3. There is a healing right L1 transverse process fracture. 3. Trace left pleural effusion. ACT 112: Negative or not required by law. Electronically signed by: Kanu Carbajal M.D. 06/07/2024 12:56 PM
--- NOTE | 2024-06-07 13:04 | Hospitalist Progress Note ---
Date of Service June 07, 2024 Assessment & Plan (1) Fall: (2) Hypomagnesemia: (3) Acute dehydration: (4) Metabolic encephalopathy: (5) Acute hypotension: (6) DM2 (diabetes mellitus, type 2): (7) GERD (gastroesophageal reflux disease): (8) Closed T12 fracture: (9) Alcohol intoxication: (10) Dermatitis of lower extremity: Plan Metabolic encephalopathy/status post fall/trauma alert- Unclear etiology, with differential including but not limited to: Alcohol use, dehydration, hypomagnesemia, progression of general debilitation, failure to thrive, others Patient was found to be soiled fecally due to fecal incontinence CT head without contrast negative. CT cervical spine negative. CT chest with questionable left 11th rib fracture CT scan abdomen pelvis with T12 vertebral fracture and 50% height loss Will need PT/OT assessment prior to discharge Will need to be assessed to see if he is still appropriate for his present living situation I discussed with his son Miguel who agrees that he may need an alternative living arrangement. This is the third time he has been found down, covered in excretment Alcohol use- Alcohol level 10.2 on admission, although patient denies any alcohol use Placed on KENYATTA S protocol with IV Ativan Thiamine 100 mg p.o. every morning Folic acid 1 mg p.o. every morning CKD/dehydration/hypomagnesemia/relative hypokalemia- Baseline creatinine 2.26, with present creatinine 1.68 Status post 1.5 L normal saline bolus from the ED Place on NSS at 80 mL/h x 1 L Repeat laboratories in the a.m. For magnesium 1.5, give magnesium sulfate 2 g IV recheck laboratories in a.m. 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 May benefit long-term from fluocinonide cream with zinc oxide on top Diabetes mellitus- Glucose 173 on admission Continue glargine 6 units subcu every morning Placed on Accu-Cheks with NovoLog SSI I discussed with his son Miguel who agrees that he may need an alternative living arrangement. Will consult Social work, patient says he wants to go back to his home Admission and Anticipated Discharge Date Admission Date: June 05, 2024 Subjective patient seen and examined, awake and alert Review of Systems Review of Systems: All systems reviewed are negative, apart from the ones contained in the history. Physical Exam Physical Exam: The patient is awake, alert and oriented 3, well developed and well nourished, normocephalic and atraumatic, lying in bed and in no acute distress. HEENT--PERRL, EOMI, mucous membranes and oropharynx mildly dry Neck--supple. No JVD. No bruits. Thyroid normal, trachea midline, no adenopathy. Heart--normal S1 and S2. No murmurs, rubs or gallops. Lungs--clear bilaterally, no respiratory distress, no accessory muscle use. Abdomen--normal bowel sounds and soft. Extremities--no cyanosis or clubbing. No edema. Dermatologic--normal skin turgor, normal color, no abnormal lymph nodes, no rash. Neurologic--cranial nerves II through XII grossly intact. Rheumatologic--normal range of motion. Psychiatric--normal affect. Results & Data Results & Data Vital Signs (Past 12 Hours) Vital Signs Temp Pulse Pulse Resp BP Pulse Ox O2 Del Method 06/07/24 11:48 97.5 F L 63 16 119/72 98 Room Air 06/07/24 07:59 97.9 F 69 16 92/57 L 92 Room Air 06/07/24 07:40 Room Air 06/07/24 07:00 67 06/07/24 04:30 98.4 F 71 16 101/61 92 Room Air PG Care Time/CCT Total # of Minutes Spent Total Time Spent with Patient: Total time spent is greater than 50% in coordination of care (as documented) at patient's floor/unit and/or counseling patient: Coding Level of Care Code 77670 SUB INP/OBS CARE 2/35MIN Diagnoses Fall W19.XXXA Encounter type: initial encounter Hypomagnesemia E83.42 Acute dehydration E86.0 Metabolic encephalopathy G93.41 Acute hypotension I95.9 Type 2 diabetes mellitus without complication, without long-term current use of insulin E11.9 Diabetes mellitus usp insulin use: without usp use Diabetes mellitus complication status: without complication Gastroesophageal reflux disease, unspecified whether esophagitis present K21.9 Esophagitis presence: esophagitis presence not specified Closed T12 fracture S22.089A Alcohol intoxication F10.929 Dermatitis of lower extremity L30.9 Time Spent (min) 35 (1) Fall Encounter type: initial encounter Qualified Code(s): W19.XXXA - Unspecified fall, initial encounter (6) DM2 (diabetes mellitus, type 2) 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
[2024-06-07 15:37] LABS: Cdiff Antigen Positive; Cdiff Toxin A+B Negative Cdiff Toxin (Negative)
[2024-06-08 06:29] LABS: Basophils # (auto) 0.06 K/uL (0.00-0.20); Basophils % (auto) 0.9 %; Eosinophils # (auto) 0.37 K/uL (0.00-0.50); Eosinophils % (auto) 5.8 %; Hematocrit (blood only) 34.8 % (42.0-52.0); Hemoglobin 11.9 g/dl (14.0-18.0); Immature Granulocytes # (auto) 0.03 K/uL (0.01-0.20); Immature Granulocytes % (auto) 0.5 %; Lymphocytes # (auto) 2.32 K/uL (1.20-3.40); Lymphocytes % (auto) 36.6 %; Mean Corpuscular Hemoglobin 30.6 pg (25.0-34.0); Mean Corpuscular Hgb Conc 34.2 g/dL (32.0-36.0); Mean Corpuscular Volume 89.5 fL (80.0-100.0); Mean Platelet Volume 9.1 fL (9.4-12.4); Monocytes # (auto) 0.51 K/uL (0.11-0.59); Neutrophils # (auto) 3.05 K/uL (1.40-6.50); Neutrophils % (auto) 48.2 %; Platelet Count 232 K/uL (130-400); RDW Coefficient of Variation 13.7 % (11.5-14.5); RDW Standard Deviation 44.9 fL (36.4-46.3); Red Blood Count 3.89 M/uL (4.70-6.10); White Blood Count 6.34 K/ul (4.8-10.8)
[2024-06-08 06:51] LABS: Albumin Level 2.7 gm/dl (3.4-5.0); BUN Creatinine Ratio 12.3 (10-20); Creatinine Clr Calc Pharmacy 39.7 ml/min; Est GFR (African American) 57.6 ml/min; Est GFR (Non-African American) 49.7 ml/min; Magnesium 1.9 mg/dl (1.7-2.4); Phosphorus 3.7 mg/dl (2.5-4.9); Potassium 4.4 mmol/L (3.5-5.1)
--- NOTE | 2024-06-08 09:05 | Consultation ---
Date of Consultation June 08, 2024 Assessment & Plan (1) Closed T12 fracture: Dr. Willams has reviewed imaging and treatment plan. Treatment is conservative. I ordered a TLSO brace to be worn when up and ambulatory or standing. May remove when in a seated position or laying down. No lifting over 5 pounds. Ambulate ad carmen. Will sign off. He can follow-up in our office in 2 weeks History of Present Illness Attending Physician: Barbara Wong MD History of Present Illness Is a pleasant 74-year-old gentleman who was found unresponsive at his home by his son yesterday. EMS was called. He is subsequently admitted. He denies any back pain. He states he has been up and ambulatory around the room and this does not reproduce his symptoms. No leg pain. He states he ambulates independently inside his home but alternates between a cane and a walker when outside of his home. No other complaints Allergies Allergy/AdvReac Type Severity Reaction Status Date / Time No Known Allergies Allergy Verified 02/28/24 17:00 Home Medications Medication Instructions Recorded Confirmed Type magnesium oxide 400 mg (241.3 mg 400 mg PO AMHS 04/05/23 02/28/24 History magnesium) tablet cholecalciferol (vitamin D3) 125 125 mcg PO HS 06/18/23 02/28/24 History mcg (5,000 unit) tablet (Vitamin D3) metformin 1,000 mg tablet 1,000 mg PO QPM 06/18/23 02/28/24 History potassium chloride 20 mEq 20 meq PO QAM 11/09/23 02/28/24 History tablet,extended release(part/cryst) insulin aspart U-100 100 unit/mL 1 sliding scale dose subcut AC 02/21/24 02/28/24 History (3 mL) subcutaneous pen (Novolog FlexPen U-100 Insulin aspart) insulin glargine 100 unit/mL (3 6 unit subcut QAM 02/21/24 02/28/24 History mL) subcutaneous pen (Lantus Solostar U-100 Insulin) pantoprazole 20 mg tablet,delayed 20 mg PO QAM 02/21/24 02/28/24 History release gabapentin 100 mg capsule 100 mg PO TID #100 caps 03/06/24 Rx midodrine 5 mg tablet 5 mg PO TID #90 tabs 03/06/24 Rx white petrolatum-mineral oil 1 applic EXT TID 30 days #454 grams 06/09/24 Rx topical cream (Dermacerin topical cream) Patient History Medical History CARLO (acute kidney injury) C. difficile colitis Hypomagnesemia Septic shock Hypomagnesemia Acute kidney injury superimposed on CKD Sepsis due to urinary tract infection Metabolic encephalopathy 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 Diabetes mellitus, type 2 Cataract upcoming surgery for correction Low blood pressure On Midodrine Chronic obstructive pulmonary disease Surgical History History of esophagogastroduodenoscopy (EGD) History of colonoscopy History of tooth extraction Family History Other No family history of adverse response to anesthesia Social History Smoking Status: Current every day smoker Tobacco Type: Cigarettes Cigarettes Per Day: 20; Second Hand Exposure: No; Do You Dip or Chew Tobacco: No; Hx Alcohol Use: No Hx Substance Use: No Preferred Language: Telugu Communication Ability: Effective Wire Frame Lamp Shade Maker Required: No Beliefs That Will Affect Care: None Current Living Situation: Alone Current Living Situation Comment: son lives down the road Feels Safe at Home: Yes Assistive Devices: Cane and Walker Review of Systems Review of Systems: All systems reviewed & are unremarkable except as noted in HPI & below Physical Exam Physical Exam: He is lying in bed in no acute distress alert and oriented x 3 Very thin Nontender to palpation and percussion of the thoracolumbar spine Strength intact bilateral lower extremities Results & Data Vital Signs (Past 12 Hours) Vital Signs Temp Pulse Pulse Resp BP BP Pulse Ox 06/08/24 07:46 06/08/24 07:43 36.8 C 71 16 102/53 L 94 06/08/24 07:10 66 06/08/24 02:34 36.4 C L 73 16 94/63 L 93 06/07/24 22:20 36.2 C L 65 16 104/65 94 06/07/24 21:35 64 O2 Del Method 08/26/24 07:46 Room Air 06/08/24 07:43 Room Air 06/08/24 07:10 06/08/24 02:34 Room Air 06/07/24 22:20 Room Air 06/07/24 21:35 Diagnostic Findings [place], [place] [phone] CT Scan Report Patient: JENSEN CHAPMAN Admit Date: 06/05/24 MR#: [id number] Address[address]: [address] [facility] Acct ID:[id number] Address2: Date: 1950 [facility] Zip: [place] [address] Age: 74 Location: 2W Sex: M Room/Bed: [facility] Att Phy: Barbara Wong MD Diagnosis: FALL, T-12 VERTEBRAL FRACTURE, HYPOMAGNESEMIA Denia Phy: Jennifer Soni M.D. Service Date: 06/07/24 Fam Phy: Interpreting Phy: Kanu Carbajal MDAdmit Phy: Ryan Earl MD Ordering Phy: Pollo Willams D.O. cc: ~ THORACIC SPINE CT CT DOSE: 1098.94 mGy.cm HISTORY: T12 fx TECHNIQUE: Multiaxial CT images of the thoracic spine were performed and reformatted in the sagittal and coronal plane without the use of contrast. A dose lowering technique was utilized adhering to the principles of ALARA. COMPARISON: Abdomen and pelvis CT 06/05/2024. FINDINGS: Trace left pleural effusion. Partially visualized left renal cyst. Right-sided nephrolithiasis. Pancreatic calcifications are partially visualized. Emphysema. No pneumothorax. Mild to moderate superior endplate compression fracture at T12 again noted with 3 mm of retropulsion of the posterior cortex. This results in mild central canal narrowing at this level. There is up to 40% loss of height anteriorly. There is sclerosis within the fracture site suggestive of a subacute fracture. No additional fractures within the thoracic spine. Mild degenerative disc disease is noted. The posterior elements are intact. There is a healing left posterior 11th rib fracture. There is a healing right L1 transverse process fracture which is nondisplaced. IMPRESSION: 1. Redemonstration of the mild to moderate superior endplate compression fracture at T12 with 3 mm of retropulsion. This results in mild central canal narrowing at this level. This favors a subacute fracture. 2. There is a healing left posterior 11th rib fracture. 3. There is a healing right L1 transverse process fracture. 3. Trace left pleural effusion. ACT 112: Negative or not required by law. Electronically signed by: Kanu Carbajal M.D. 06/07/2024 12:56 PM Dictated: 06/07/24 125 Transcribed: 06/07/24 125
--- NOTE | 2024-06-08 11:55 | Hospitalist Progress Note ---
Date of Service June 08, 2024 Assessment & Plan (1) Fall: (2) Hypomagnesemia: (3) Acute dehydration: (4) Metabolic encephalopathy: (5) Acute hypotension: (6) DM2 (diabetes mellitus, type 2): (7) GERD (gastroesophageal reflux disease): (8) Closed T12 fracture: (9) Alcohol intoxication: (10) Dermatitis of lower extremity: Plan Metabolic encephalopathy/status post fall/trauma alert- Unclear etiology, with differential including but not limited to: Alcohol use, dehydration, hypomagnesemia, progression of general debilitation, failure to thrive, others Patient was found to be soiled fecally due to fecal incontinence CT head without contrast negative. CT cervical spine negative. CT chest with questionable left 11th rib fracture CT scan abdomen pelvis with T12 vertebral fracture and 50% height loss Will need PT/OT assessment prior to discharge Will need to be assessed to see if he is still appropriate for his present living situation I discussed with his son Miguel who agrees that he may need an alternative living arrangement. This is the third time he has been found down, covered in excretment Alcohol use- Alcohol level 10.2 on admission, although patient denies any alcohol use Placed on KENYATTA S protocol with IV Ativan Thiamine 100 mg p.o. every morning Folic acid 1 mg p.o. every morning CKD/dehydration/hypomagnesemia/relative hypokalemia- Baseline creatinine 2.26, with present creatinine 1.68 Status post 1.5 L normal saline bolus from the ED Place on NSS at 80 mL/h x 1 L Repeat laboratories in the a.m. 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 May benefit long-term from fluocinonide cream with zinc oxide on top Diabetes mellitus- Glucose 173 on admission Continue glargine 6 units subcu every morning Placed on Accu-Cheks with NovoLog SSI I discussed with his son Miguel who agrees that he may need an alternative living arrangement. Will consult Social work, patient says he wants to go back to his home Plan to discharge patient home with home PT after brace has been fixed Admission and Anticipated Discharge Date Admission Date: June 05, 2024 Subjective patient seen and examined, awake and alert Review of Systems Review of Systems: All systems reviewed are negative, apart from the ones contained in the history. Physical Exam Physical Exam: The patient is awake, alert and oriented 3, well developed and well nourished, normocephalic and atraumatic, lying in bed and in no acute distress. HEENT--PERRL, EOMI, mucous membranes and oropharynx mildly dry Neck--supple. No JVD. No bruits. Thyroid normal, trachea midline, no adenopathy. Heart--normal S1 and S2. No murmurs, rubs or gallops. Lungs--clear bilaterally, no respiratory distress, no accessory muscle use. Abdomen--normal bowel sounds and soft. Extremities--no cyanosis or clubbing. No edema. Dermatologic--normal skin turgor, normal color, no abnormal lymph nodes, no rash. Neurologic--cranial nerves II through XII grossly intact. Rheumatologic--normal range of motion. Psychiatric--normal affect. Results & Data Results & Data Vital Signs (Past 12 Hours) Vital Signs Temp Pulse Pulse Resp BP BP Pulse Ox 06/08/24 11:46 97.7 F 78 16 132/72 94 06/08/24 07:46 06/08/24 07:43 98.2 F 71 16 102/53 L 94 06/08/24 07:10 66 06/08/24 02:34 97.5 F L 73 16 94/63 L 93 O2 Del Method 06/08/24 11:46 Room Air 06/08/24 07:46 Room Air 06/08/24 07:43 Room Air 06/08/24 07:10 06/08/24 02:34 Room Air PG Care Time/CCT Total # of Minutes Spent Total Time Spent with Patient: Total time spent is greater than 50% in coordination of care (as documented) at patient's floor/unit and/or counseling patient: Coding Level of Care Code 68622 SUB INP/OBS CARE 2/35MIN Diagnoses Fall W19.XXXA Encounter type: initial encounter Hypomagnesemia E83.42 Acute dehydration E86.0 Metabolic encephalopathy G93.41 Acute hypotension I95.9 Type 2 diabetes mellitus without complication, without long-term current use of insulin E11.9 Diabetes mellitus fpc insulin use: without medical terminologist use Diabetes mellitus complication status: without complication Gastroesophageal reflux disease, unspecified whether esophagitis present K21.9 Esophagitis presence: esophagitis presence not specified Closed T12 fracture S22.089A Alcohol intoxication F10.929 Dermatitis of lower extremity L30.9 Time Spent (min) 35 (1) Fall Encounter type: initial encounter Qualified Code(s): W19.XXXA - Unspecified fall, initial encounter (6) DM2 (diabetes mellitus, type 2) Diabetes mellitus fpc insulin use: without fpc use Diabetes mellitus complication status: without complication Qualified Code(s): E11.9 - Type 2 diabetes mellitus without complications (7) GERD (gastroesophageal reflux disease) Esophagitis presence: esophagitis presence not specified Qualified Code(s): K21.9 - Gastro-esophageal reflux disease without esophagitis
[2024-06-08] MEDS: ACETAMINOPHEN 325 MG TAB PO PRN (17:11)
[2024-06-09 11:11] VITALS: PULSE 89; RESP 18; TEMP 97.7; O2SAT 95
[2024-06-09 11:24] VITALS: BP 107/65
--- NOTE | 2024-06-09 14:28 | Discharge Summary ---
Date of Service June 09, 2024 Admission HPI Per Admitting Provider The patient is a 74-year-old male with a past medical history including diabetes mellitus, hypotension, GERD, peripheral neuropathy, vitamin D deficiency, history of urinary retention, and esophageal candidiasis. The patient was initially brought to the emergency department by EMS after being found down all day, by his son, who then called EMS and brought the patient to the ED. The patient was initially reported to be nonresponsive, however, he was able to communicate in the ED. He denies any complaints at this time with assessment, reports that he is been eating and drinking okay and they does live by himself at home, but his son is close by. Admission Exam (Per Admitting) Constitutional The patient is awake, alert and oriented 3, well developed and well nourished, normocephalic and atraumatic, lying in bed and in no acute distress. HEENT--PERRL, EOMI, mucous membranes and oropharynx mildly dry Neck--supple. No JVD. No bruits. Thyroid normal, trachea midline, no adenopathy. Heart--normal S1 and S2. No murmurs, rubs or gallops. Lungs--clear bilaterally, no respiratory distress, no accessory muscle use. Abdomen--normal bowel sounds and soft. Extremities--no cyanosis or clubbing. No edema. Dermatologic--normal skin turgor, normal color, no abnormal lymph nodes, no rash. Neurologic--cranial nerves II through XII grossly intact. Rheumatologic--normal range of motion. Psychiatric--normal affect. Discharge Data Consultations 06/05/24 22:29 ED Decision to Admit Stat 06/07/24 08:25 Consult Orthopedic Spine Surgery Routine Hospital Course (1) Fall: (2) Hypomagnesemia: (3) Acute dehydration: (4) Metabolic encephalopathy: (5) Acute hypotension: (6) DM2 (diabetes mellitus, type 2): (7) GERD (gastroesophageal reflux disease): (8) Closed T12 fracture: (9) Alcohol intoxication: (10) Dermatitis of lower extremity: Plan Metabolic encephalopathy/status post fall/trauma alert- Unclear etiology, with differential including but not limited to: Alcohol use, dehydration, hypomagnesemia, progression of general debilitation, failure to thrive, others Patient was found to be soiled fecally due to fecal incontinence CT head without contrast negative. CT cervical spine negative. CT chest with questionable left 11th rib fracture CT scan abdomen pelvis with T12 vertebral fracture and 50% height loss Will need PT/OT assessment prior to discharge Will need to be assessed to see if he is still appropriate for his present living situation I discussed with his son Miguel who agrees that he may need an alternative living arrangement. This is the third time he has been found down, covered in excretment Alcohol use- Alcohol level 10.2 on admission, although patient denies any alcohol use Placed on KEYNATTA S protocol with IV Ativan Thiamine 100 mg p.o. every morning Folic acid 1 mg p.o. every morning CKD/dehydration/hypomagnesemia/relative hypokalemia- Baseline creatinine 2.26, with present creatinine 1.68 Status post 1.5 L normal saline bolus from the ED Place on NSS at 80 mL/h x 1 L Repeat laboratories in the a.m. 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 May benefit long-term from fluocinonide cream with zinc oxide on top Diabetes mellitus- Glucose 173 on admission Continue glargine 6 units subcu every morning Placed on Accu-Cheks with NovoLog SSI I discussed with his son Miguel who agrees that he may need an alternative living arrangement. Will consult Social work, patient says he wants to go back to his home Plan to discharge patient home with home PT after brace has been fixed Coding Level of Care Code 44644 INP/OBS DISCH >30 MIN Diagnoses Fall W19.XXXA Encounter type: initial encounter Hypomagnesemia E83.42 Acute dehydration E86.0 Metabolic encephalopathy G93.41 Acute hypotension I95.9 Type 2 diabetes mellitus without complication, without long-term current use of insulin E11.9 Diabetes mellitus detention insulin use: without buttermilk drier operator use Diabetes mellitus complication status: without complication Gastroesophageal reflux disease, unspecified whether esophagitis present K21.9 Esophagitis presence: esophagitis presence not specified Closed T12 fracture S22.089A Alcohol intoxication F10.929 Dermatitis of lower extremity L30.9 Time Spent (min) 35
[2024-06-09] MEDS ORDERED: LORazepam 2 MG/1 ML VIAL IV PRN ×3 (14:38→14:41)
--- NOTE | 2024-06-10 15:42 | Electrocardiogram Report ---
Test Reason : Blood Pressure : */* mmHG Vent. Rate : 98 BPM Atrial Rate : 98 BPM P-R Int : 146 ms QRS Dur : 80 ms QT Int : 378 ms P-R-T Axes : 76 -68 80 degrees QTcB Int : 482 ms Normal sinus rhythm Left anterior fascicular block Prolonged QT Abnormal ECG When compared with ECG of 28-Feb-2024 14:55, No significant change was found Confirmed by Priyanka Morales ([id number]) on 06/06/2024 1:48:25 PM Referred By: REFERRED SELF Confirmed By: Priyanka Morales
== END 2024-06-09 15:47 | disposition home health service (06) | DRG 91 ==
LOC: ED 19:01 → SUATTDRO 23:37 → 2W 23:37
DX: I12.9 Hypertensive chronic kidney disease with stage 1 through stage 4 chronic kidney disease, or unspecified chronic kidney disease; Y92.017 Garden or yard in single-family (private) house as the place of occurrence of the external cause; S22.32XA Fracture of one rib, left side, initial encounter for closed fracture; R29.6 Repeated falls; F10.129 Alcohol abuse with intoxication, unspecified; Z79.899 Other long term (current) drug therapy; I95.9 Hypotension, unspecified; E55.9 Vitamin D deficiency, unspecified; E87.6 Hypokalemia; E11.620 Type 2 diabetes mellitus with diabetic dermatitis; E11.42 Type 2 diabetes mellitus with diabetic polyneuropathy; N18.9 Chronic kidney disease, unspecified; W19.XXXA Unspecified fall, initial encounter; R53.81 Other malaise; K21.9 Gastro-esophageal reflux disease without esophagitis; E86.0 Dehydration; Y90.0 Blood alcohol level of less than 20 mg/100 ml; F17.210 Nicotine dependence, cigarettes, uncomplicated; Z79.84 Long term (current) use of oral hypoglycemic drugs; S22.088A Other fracture of T11-T12 vertebra, initial encounter for closed fracture; Z79.4 Long term (current) use of insulin; G93.41 Metabolic encephalopathy

== ENCOUNTER 2024-10-20 15:42 | Inpatient (IN) ==
--- NOTE | 2024-10-20 16:33 | Emergency Department Note ---
Impression & Plan Rhabdomyolysis, Fall from standing, Closed fracture of greater trochanter of left femur ED Provider Note NAME: JENSEN CHAPMAN AGE: 74 SEX: M : 1950 ARRIVES VIA: Ambulance INFORMANT: Patient ED PROVIDER(S): Kristian Neff MD CHIEF COMPLAINT: Fall, left hip pain PLAN: Disposition: Admit MEDICAL DECISION MAKING: The patient is a pleasant 74-year-old gentleman with a past medical history of ambulatory dysfunction, GERD, BPH with LUTS, peripheral neuropathy, vitamin D for deficiency, esophageal candidiasis who presents to the emergency department via EMS for evaluation of left hip pain and fall with prolonged downtime in the setting of the patient's report of falling when he was at the sink this morning and lay on the ground for 6 or more hours until he was found by his son. The details of this are unclear as he reports his son works overnight cashier and found him when he went to check on him after work yet he presents to the emergency department in the afternoon. Patient denies any recent illness including fevers, chills, cough, congestion, GI or symptoms. Patient is not on anticoagulation. Patient reports he believes he hit the right side of his head on the floor but did not pass out. Denies any neck or back pain. His only complaint is pain in his left hip when he attempts to move it but has no pain at rest. On evaluation the patient is in no acute distress, afebrile with heart in the 90s and vital signs otherwise stable. Appears clinically dry. Head is atraumatic. Has no midline CTL spine tenderness to patient step-offs. Patient exhibits point tenderness of the left lateral hip without gross deformity. Range of motion is limited secondary to pain. Distal PMS is intact. Given the patient does not exhibit any distracting injury as he denies pain at rest c- collar was able to be cleared on exam with full range of motion of the neck without radicular symptoms and no midline tenderness palpation or step-offs. EKG without overt acute ischemia. WBC and platelets within normal limits. H/H similar to prior range values. Chemistry without metabolic acidosis. Glucose 250. LFTs unremarkable. CPK is elevated at 976 consistent with mild rhabdomyolysis in the setting of his prolonged downtime. High-sensitivity troponin is 12.4, within normal limits. Lipase is not elevated. TSH within normal limits. UA with WBCs but negative nitrites and negative for bacteria. Plain films of the pelvis and left hip did not identify fracture however CT imaging was also performed and a mildly impacted fracture of the left greater trochanter is noted. Otherwise no acute findings of the CT head, C-spine, chest abdomen pelvis. Given the patient's rhabdomyolysis and fracture in the setting of baseline amatory dysfunction patient agrees with plan for admission for further management. IV fluid hydration provided. Greater trochanter fracture was reviewed with Dr. Sena, orthopedic surgery on-call. Fracture appears stable. Orthopedics will be available for inpatient team consultation. Appreciate consultation. [facility] will [facility] the patient for [facility]. Further management per admitting team. Triage Nursing notes reviewed and agree them. Prior/external medical records reviewed Vital Signs: reviewed Differential diagnosis: Fracture, dislocation, contusion, intra-abdominal, pneumothorax, intrathoracic, intracranial, neurologic, compartment syndrome, rhabdomyolysis, as well as other pathologies. ER treatment provided: See below. Diagnostics interpreted by me: ECG: Normal sinus rhythm, 91 bpm, no ectopy, left anterior fascicular block, no overt ST ovation or depression, QTc 430, QRS 76. Cardiac Monitoring: An order for continuous cardiac monitoring was placed and demonstrated normal sinus rhythm, 91 bpm, no ectopy. Laboratory studies: See below Imaging studies: See below Consultation(s): Dr. Sena, orthopedic surgery on-call. Dr. Perez, [facility]. HPI: The patient is a pleasant 74-year-old gentleman with a past medical history of ambulatory dysfunction, GERD, BPH with LUTS, peripheral neuropathy, vitamin D for deficiency, esophageal candidiasis who presents to the emergency department via EMS for evaluation of left hip pain and fall with prolonged downtime in the setting of the patient's report of falling when he was at the sink this morning and lay on the ground for 6 or more hours until he was found by his son. The details of this are unclear as he reports his son works overnight cashier and found him when he went to check on him after work yet he presents to the emergency department in the afternoon. Patient denies any recent illness including fevers, chills, cough, congestion, GI or symptoms. Patient is not on anticoagulation. Patient reports he believes he hit the right side of his head on the floor but did not pass out. Denies any neck or back pain. His only complaint is pain in his left hip when he attempts to move it but has no pain at rest. ROS: See above HPI for pertinent positives & negatives. A total of 10 systems reviewed and were otherwise negative. VITALS:See Below PHYSICAL EXAMINATION: GENERAL: Awake, alert, fatigued in no distress HENT: Normocephalic, atraumatic. Oropharynx with dry mucous membranes and otherwise unremarkable. EYES: Normal conjunctiva. Sclera non-icteric. EOMI. No nystamgus. PEARRL. NECK: Supple. No nuchal rigidity. FROM. No JVD. No midline tenderness to palpation or step-offs. RESPIRATORY: Clear to auscultation. CARDIAC: Regular rate, normal rhythm. Extremities warm and well perfused. Pulses equal. ABDOMEN: Soft, non-distended. No tenderness to palpation. No rebound or guarding. No masses. MUSCULOSKELETAL: Chest examination reveals no tenderness. The back is symmetrical on inspection without obvious abnormality. No midline tenderness to palpation or step-offs. There is no CVA tenderness to palpation. Point tenderness of the left lateral hip without gross deformity. Range of motion is limited secondary to pain. Distal PMS is intact. LOWER EXTREMITIES: Calves are equal size bilaterally and non-tender. No edema. No discoloration. NEURO: Normal sensorium. No sensory or motor deficits noted. SKIN: No rash or jaundice noted. Kristian Neff MD Past Med/Surg History Problem List (Updated 10/21/24 @ 06:19 by Kristian Neff MD) Closed fracture of greater trochanter of left femur (Acute) Fall from standing (Acute) Rhabdomyolysis (Acute) Dermatitis of lower extremity GERD (gastroesophageal reflux disease) Alcohol intoxication Closed T12 fracture Fall (Acute) Hypoxia (Acute) Pneumonia Hypomagnesemia (Acute) Leukocytosis (Acute) Elevated lactic acid level (Acute) CARLO (acute kidney injury) (Acute) Acute hypotension (Acute) Hypoxia (Acute) Metabolic encephalopathy Exposure to body fluid Cellulitis (Acute) Fecal soiling due to fecal incontinence Acute dehydration (Acute) Acute hypotension (Acute) Acute UTI (Acute) Encounter for pre-operative examination Right nephrolithiasis Weakness Low blood pressure DM2 (diabetes mellitus, type 2) GERD (gastroesophageal reflux disease) Esophageal candidiasis Urinary retention Phimosis Hydronephrosis, right Medical History CARLO (acute kidney injury) C. difficile colitis Hypomagnesemia Septic shock Hypomagnesemia Acute kidney injury superimposed on CKD Sepsis due to urinary tract infection Metabolic encephalopathy 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 Diabetes mellitus, type 2 Cataract upcoming surgery for correction Low blood pressure On Midodrine Chronic obstructive pulmonary disease Surgical History History of esophagogastroduodenoscopy (EGD) History of colonoscopy History of tooth extraction Family History Other No family history of adverse response to anesthesia Social History Smoking Status: Current every day smoker Tobacco Type: Cigarettes Cigarettes Per Day: 20; Second Hand Exposure: No; Do You Dip or Chew Tobacco: No; Tobacco Cessation Education Requested by Patient: No Hx Alcohol Use: No Hx Substance Use: No Preferred Language: Lithuanian Communication Ability: Effective Deep Well Contractor Required: No Beliefs That Will Affect Care: None Current Living Situation: Alone Current Living Situation Comment: son lives down the road Other Information That Helps Us Care for You: No Feels Safe at Home: Yes Safety Concerns: Feels Safe At This Time Assistive Devices: Cane, Denture - Upper, Denture - Lower, Glasses, Walker and Wheelchair Allergies Allergies Allergy/AdvReac Type Severity Reaction Status Date / Time No Known Allergies Allergy Verified 02/28/24 17:00 Home Meds Home Medications Medication Instructions Recorded Confirmed magnesium oxide 400 mg (241.3 mg 400 mg PO TID 04/05/23 10/20/24 magnesium) tablet cholecalciferol (vitamin D3) 125 125 mcg PO HS 06/18/23 10/20/24 mcg (5,000 unit) tablet (Vitamin D3) metformin 1,000 mg tablet 1,000 mg PO .DAILY AFTER SUPPER 06/18/23 10/20/24 potassium chloride 20 mEq 20 meq PO .DAILY AFTER SUPPER 11/09/23 10/20/24 tablet,extended release(part/cryst) insulin aspart U-100 100 unit/mL 1 sliding scale dose subcut AC 02/21/24 10/20/24 (3 mL) subcutaneous pen (Novolog FlexPen U-100 Insulin aspart) insulin glargine 100 unit/mL (3 6 unit subcut QAM 02/21/24 10/20/24 mL) subcutaneous pen (Lantus Solostar U-100 Insulin) pantoprazole 20 mg tablet,delayed 20 mg PO DAILYBB 02/21/24 10/20/24 release clobetasol 0.05 % topical cream 1 applic topical UD 10/20/24 10/20/24 clotrimazole-betamethasone 1 1 applic topical BID 10/20/24 10/20/24 %-0.05 % topical cream gabapentin 300 mg capsule 300 mg PO TID 10/20/24 10/20/24 Previous Rx's Medication Instructions Recorded midodrine 5 mg tablet 5 mg PO TID #90 tabs 03/06/24 Results & Data (ED) Vital Signs Vital Signs - 24 hr 10/20/24 16:00 10/20/24 17:04 10/20/24 18:42 Temperature 37.1 C Temperature Source Oral Pulse Rate 93 H 83 Pulse Rate [Apical] 89 Pulse Rate from SpO2 Sensor Pulse Rhythm Regular Pulse Strength Normal Respiratory Rate 18 14 Respiratory Effort / Characteristics Non-Labored Spontaneous Respiratory Depth Normal Respiratory Pattern Regular Blood Pressure 117/78 Blood Pressure [Right Arm] 128/79 Blood Pressure Mean 91 Blood Pressure Mean [Right Arm] 95 Blood Pressure Position Sitting Pulse Oximetry 93 93 Oxygen Delivery Method Room Air Room Air Oxygen Flow Rate Sepsis Recent Fever Within 48 Hours No Sepsis New/Unexplained Change in Mental Status N/A Sepsis Action Taken by Nursing No Action Required 10/20/24 21:41 10/20/24 22:37 10/20/24 23:03 Temperature Temperature Source Pulse Rate 78 79 Pulse Rate [Apical] 81 Pulse Rate from SpO2 Sensor 77 Pulse Rhythm Pulse Strength Respiratory Rate 18 19 Respiratory Effort / Characteristics Non-Labored Respiratory Depth Normal Respiratory Pattern Regular Blood Pressure 116/70 Blood Pressure [Right Arm] 115/66 Blood Pressure Mean 85 Blood Pressure Mean [Right Arm] 82 Blood Pressure Position Pulse Oximetry 94 93 Oxygen Delivery Method Nasal Cannula Oxygen Flow Rate 2 Sepsis Recent Fever Within 48 Hours Sepsis New/Unexplained Change in Mental Status Sepsis Action Taken by Nursing 10/20/24 23:30 10/21/24 00:00 Temperature Temperature Source Pulse Rate 76 81 Pulse Rate [Apical] Pulse Rate from SpO2 Sensor 76 81 Pulse Rhythm Pulse Strength Respiratory Rate 18 16 Respiratory Effort / Characteristics Respiratory Depth Respiratory Pattern Blood Pressure 118/74 128/80 Blood Pressure [Right Arm] Blood Pressure Mean 88 96 Blood Pressure Mean [Right Arm] Blood Pressure Position Pulse Oximetry 93 91 Oxygen Delivery Method Oxygen Flow Rate Sepsis Recent Fever Within 48 Hours Sepsis New/Unexplained Change in Mental Status Sepsis Action Taken by Nursing Laboratory Data Attestation: I reviewed the patient's lab results. 10/20/24 17:00 10/20/24 17:00 Lab Results 10/20/24 10/20/24 10/20/24 Range/Units 17:00 17:10 22:54 WBC 9.98 (4.8-10.8) K/ul RBC 4.38 L (4.70-6.10) M/uL Hgb 13.9 L (14.0-18.0) g/dl POC Hgb 14.3 (14.0-18.0) g/dl Hct 40.4 L (42.0-52.0) % POC Hct 42 (42-52) % MCV 92.2 (80.0-100.0) fL MCH 31.7 (25.0-34.0) pg MCHC 34.4 (32.0-36.0) g/dL RDW Std Deviation 45.9 (36.4-46.3) fL RDW Coeff of Cassia 13.5 (11.5-14.5) % Plt Count 219 (130-400) K/uL MPV 9.0 L (9.4-12.4) fL Immature Gran % (Auto) 0.8 % Neut % (Auto) 69.0 % Lymph % (Auto) 20.7 % [place] % (Auto) 7.2 % Eos % (Auto) 1.7 % Baso % (Auto) 0.6 % Neut # (Auto) 6.88 H (1.40-6.50) K/uL Lymph # (Auto) 2.07 (1.20-3.40) K/uL [place] # (Auto) 0.72 H (0.11-0.59) K/uL Eos # (Auto) 0.17 (0.00-0.50) K/uL Baso # (Auto) 0.06 (0.00-0.20) K/uL Immature Gran # (Auto) 0.08 (0.01-0.20) K/uL PT 11.9 (9.0-12.0) Seconds INR 1.1 (0.9-1.1) POC Sodium 139 (135-144) mmol/L Sodium 139 (136-145) mmol/L POC Potassium 4.9 (3.3-5.0) mmol/L Potassium 5.0 (3.5-5.1) mmol/L POC Chloride 105 (101-112) mmol/L Chloride 105 (98-107) mmol/L Carbon Dioxide 27 (21-32) mmol/L POC Total CO2 24 (24-31) mmol/L Anion Gap 7 (3-11) POC Anion Gap 16.0 (16-25) mmol/L POC BUN 18 (7-18) mg/dl BUN 18 (6-23) mg/dl Creatinine 1.32 (0.6-1.4) mg/dl POC Creatinine 1.3 (0.6-1.3) mg/dl Est Cr Clr Drug Dosing 42.1 ml/min eGFR 56.25 BUN/Creatinine Ratio 13.6 (10-20) Glucose 254 H (70-99(Fasting)) mg/dl POC Glucose (other) 243 H (70-99) mg/dl Calcium 8.6 (8.6-10.3) mg/dl POC Ioniz Calcium Paulino 1.09 L (1.12-1.32) mmol/l Magnesium 1.7 (1.7-2.4) mg/dl Total Bilirubin 0.9 (0.2-1.0) mg/dl AST 35 (13-39) U/L ALT 14 (7-52) U/L Alkaline Phosphatase 306 H (34-104) U/L Total Creatine Kinase 976 H (30-223) U/L Troponin I High Sens 12.4 (0-20) pg/ml Total Protein 6.6 (6.0-8.3) gm/dl Albumin 3.4 (3.4-5.0) gm/dl Globulin 3.2 (2.5-4.0) gm/dl Albumin/Globulin Ratio 1.1 (0.9-2) Lipase < 3 L (11-82) U/L TSH 2.823 (0.300-4.500) uIu/ml Urine Color Yellow Urine Appearance Clear (Clear) Urine pH 5.5 (4.5-7.5) Ur Specific [place] 1.018 (1.000-1.030) Urine Protein Trace H (Negative) Urine Glucose (UA) Negative (Negative) Urine Ketones Negative (Negative) Urine Blood Trace H (Negative) Urine Nitrite Negative (Negative) Urine Bilirubin Negative (Negative) Urine Urobilinogen Negative (Negative) Ur Leukocyte Esterase 3+ H (Negative) Urine WBC (Auto) >50 H (0-5) /hpf Urine RBC (Auto) 0-2 (0-2) /hpf U Hyaline Cast (Auto) 0-2 (0-2) /lpf U Epithel Cells (Auto) 0-2 (0-2) /hpf Urine Bacteria (Auto) None Seen (None Seen) Administered Medications Sodium Chloride (Nss) 1,000 mls @ 80 mls/hr IV .[id number] [facility] Stop: 10/22/24 03:35 Last Admin: 10/21/24 04:56 Dose: 80 mls/hr Documented By: HEATHER Insulin Aspart (Insulin Aspart Per Unit Charge) 0 units SC Q6 ISABELL Stop: 11/20/24 05:59 Last Admin: 10/21/24 06:02 Dose: Not Given Documented By: HEATHER Discontinued Medications Sodium Chloride (Nss) 500 mls @ 999 mls/hr IV .Q31M ONE Stop: 10/20/24 17:00 Last Infusion: 10/20/24 18:09 Dose: Infused Documented By: [facility] Admin: 10/20/24 16:57 Dose: 999 mls/hr Documented By: ADONAY Acetaminophen (Ofirmev) 1,000 mg in 100 mls @ 400 mls/hr IV NOW STA Stop: 10/20/24 16:47 Last Infusion: 10/20/24 18:09 Dose: Infused Documented By: [facility] Admin: 10/20/24 16:57 Dose: 400 mls/hr Documented By: ADONAY Ioversol (Optiray 320 100ml) 93 ml IV ONCE ONE Stop: 10/20/24 17:38 Last Admin: 10/20/24 17:37 Dose: 93 ml Documented By: KASH Imaging Data Radiologist's Impression: Abdomen/Pelvis CT 10/20/24 16:30 INDICATION: Pain and injury. COMPARISON: Report from CT chest, abdomen and pelvis from 06/05/2024 - images not available for comparison at this time. TECHNIQUE: Axial CT images of the chest, abdomen and pelvis were obtained following IV contrast administration. Coronal and sagittal reformations were reviewed. FINDINGS: Chest: The thoracic aorta appears normal in caliber. The heart is mildly enlarged. No pericardial or pleural effusion. No pneumothorax. No pathologically enlarged mediastinal or hilar lymph nodes. No pulmonary consolidation. Moderate to severe emphysema. No acute osseous abnormality evident. Degenerative changes in the spine. T12 compression fracture as described on prior CT. chronic appearing rib deformities. Bilateral gynecomastia noted. Abdomen and pelvis: The liver, gallbladder, spleen and adrenal glands appear unremarkable. No hydronephrosis. Left renal cyst measuring 5.8 cm. Calcifications in the pancreas likely related to degree of chronic pancreatitis. Negative for abdominal aortic aneurysm or dissection. No evidence of bowel obstruction/colitis/appendicitis. Mild amount of retained colonic stool. No free air. No drainable fluid collection. Urinary bladder distention. Degenerative changes in the spine. Mildly impacted fracture of the left greater trochanter. IMPRESSION: Mildly impacted fracture of the left greater trochanter. Otherwise none acute process in the chest, abdomen or pelvis. Electronically signed by Callum Kline 10-20-2024 6:[address] 10/20/24 16:30 INDICATION: Pain and injury. COMPARISON: CT from 06/05/2024 TECHNIQUE: Axial CT images of the cervical spine were obtained without IV contrast administration. Coronal and sagittal reformations were reviewed. FINDINGS: Cervical vertebral body heights and alignment are maintained. No acute fracture or traumatic subluxation. Mild multilevel disc space narrowing and facet arthropathy. Neck soft tissues and lung apices appear grossly unremarkable. IMPRESSION: No acute fracture. Electronically signed by Callum Kline 10-20-2024 6:[address] 10/20/24 16:30 INDICATION: Pain and injury. COMPARISON: Report from CT chest, abdomen and pelvis from 06/05/2024 - images not available for comparison at this time. TECHNIQUE: Axial CT images of the chest, abdomen and pelvis were obtained following IV contrast administration. Coronal and sagittal reformations were reviewed. FINDINGS: Chest: The thoracic aorta appears normal in caliber. The heart is mildly enlarged. No pericardial or pleural effusion. No pneumothorax. No pathologically enlarged mediastinal or hilar lymph nodes. No pulmonary consolidation. Moderate to severe emphysema. No acute osseous abnormality evident. Degenerative changes in the spine. T12 compression fracture as described on prior CT. chronic appearing rib deformities. Bilateral gynecomastia noted. Abdomen and pelvis: The liver, gallbladder, spleen and adrenal glands appear unremarkable. No hydronephrosis. Left renal cyst measuring 5.8 cm. Calcifications in the pancreas likely related to degree of chronic pancreatitis. Negative for abdominal aortic aneurysm or dissection. No evidence of bowel obstruction/colitis/appendicitis. Mild amount of retained colonic stool. No free air. No drainable fluid collection. Urinary bladder distention. Degenerative changes in the spine. Mildly impacted fracture of the left greater trochanter. IMPRESSION: Mildly impacted fracture of the left greater trochanter. Otherwise none acute process in the chest, abdomen or pelvis. Electronically signed by Callum Kline 10-20-2024 6:11 PM Hip/Pelvis X-Ray 10/20/24 16:30 Exam(s): XR HIP + PELVIS, 1 view EXAM: XR Left Hip With Pelvis When Performed, 2 Views CLINICAL HISTORY: Reason for exam: pain fall. TECHNIQUE: Frontal view of the left hip with pelvis when performed. COMPARISON: X-ray pelvis: 06/05/2024 FINDINGS: Bones/joints: No acute fracture. No dislocation. Shortened left femoral neck seen similar to prior comparison. Soft tissues: Unremarkable. Other findings: Large amount of retained stool in the rectosigmoid. Calcified phleboliths overlies the lower pelvis.. IMPRESSION: No radiographic evidence of acute fracture or dislocation. . Electronically signed by: Harini Lechuga MD, SANTIAGO 10/20/24 20:04 PM Discharge Plan Visit Data Chief Complaint: Fall Stated Complaint: FALL ED Provider: Kristian Neff Discharge Problem: Rhabdomyolysis, Fall from standing, Closed fracture of greater trochanter of left femur Patient Disposition: Admitted As Inpatient Discharge Instructions Interventions: ED AMA/LWBS Discharge Assessment Last Done: 10/21/24 02:35 Discharge Problem: Rhabdomyolysis Qualifiers: Rhabdomyolysis type: traumatic Encounter type: initial encounter Qualified Code(s): T79.6XXA - Traumatic ischemia of muscle, initial encounter Fall from standing Qualifiers: Encounter type: initial encounter Qualified Code(s): W19.XXXA - Unspecified fall, initial encounter Closed fracture of greater trochanter of left femur Qualifiers: Encounter type: initial encounter Fracture alignment: nondisplaced Qualified Code(s): S72.115A - Nondisplaced fracture of greater trochanter of left femur, initial encounter for closed fracture
[2024-10-20] MEDS: ACETAMINOPHEN 1,000 MG/100 ML VIAL IV STA (16:57)
[2024-10-20] MEDS: SODIUM CHLORIDE 0.9% 500 ML IV ONE (16:57)
[2024-10-20 17:22] LABS: iSTAT Creatinine 1.3 mg/dl (0.6-1.3); iSTAT Hemoglobin 14.3 g/dl (14.0-18.0); iSTAT Ionized Calcium 1.09 mmol/l (1.12-1.32); iSTAT Potassium 4.9 mmol/L (3.3-5.0)
[2024-10-20 17:35] LABS: Basophils # (auto) 0.06 K/uL (0.00-0.20); Basophils % (auto) 0.6 %; Eosinophils # (auto) 0.17 K/uL (0.00-0.50); Eosinophils % (auto) 1.7 %; Hematocrit (blood only) 40.4 % (42.0-52.0); Hemoglobin 13.9 g/dl (14.0-18.0); Immature Granulocytes # (auto) 0.08 K/uL (0.01-0.20); Immature Granulocytes % (auto) 0.8 %; Lymphocytes # (auto) 2.07 K/uL (1.20-3.40); Lymphocytes % (auto) 20.7 %; Mean Corpuscular Hemoglobin 31.7 pg (25.0-34.0); Mean Corpuscular Hgb Conc 34.4 g/dL (32.0-36.0); Mean Corpuscular Volume 92.2 fL (80.0-100.0); Monocytes # (auto) 0.72 K/uL (0.11-0.59); Monocytes % (auto) 7.2 %; Neutrophils # (auto) 6.88 K/uL (1.40-6.50); Platelet Count 219 K/uL (130-400); RDW Coefficient of Variation 13.5 % (11.5-14.5); RDW Standard Deviation 45.9 fL (36.4-46.3); Red Blood Count 4.38 M/uL (4.70-6.10); White Blood Count 9.98 K/ul (4.8-10.8)
[2024-10-20] MEDS: OPTIRAY 320 100ml IV ONE (17:37)
[2024-10-20 17:38] LABS: Anion Gap 7 (3-11); BUN Creatinine Ratio 13.6 (10-20); Blood Urea Nitrogen 18 mg/dl (6-23); Calcium 8.6 mg/dl (8.6-10.3); Carbon Dioxide 27 mmol/L (21-32); Chloride 105 mmol/L (98-107); Creatinine Clr Calc Pharmacy 42.1 ml/min; Glucose 254 mg/dl (70-99(Fasting)); Sodium 139 mmol/L (136-145)
--- NOTE | 2024-10-20 17:42 | CT Scan Report ---
INDICATION: Pain and injury. COMPARISON: CT brain from 02/21/2024. TECHNIQUE: Axial CT images of the head were obtained without IV contrast. Coronal and sagittal reformations were reviewed. FINDINGS: Bravo-white differentiation is relatively preserved. No mass, mass effect or midline shift. Chronic ischemic white matter changes. Mild cortical atrophy. No evidence of acute large territorial infarction or acute intracranial hemorrhage. Ventricles appear normal in size. Basal cisterns are patent. No depressed calvarial fracture. IMPRESSION: No acute intracranial process. Electronically signed by Callum Kline 10-20-2024 5:42 PM
[2024-10-20 17:44] LABS: Troponin I High Sensitivity 12.4 pg/ml (0-20)
[2024-10-20 17:49] LABS: INR 1.1 (0.9-1.1); Prothrombin Time 11.9 Seconds (9.0-12.0)
[2024-10-20 17:52] LABS: Alanine Aminotransferase 14 U/L (7-52); Albumin Globulin Ratio 1.1 (0.9-2); Albumin Level 3.4 gm/dl (3.4-5.0); Alkaline Phosphatase 306 U/L (34-104); Aspartate Aminotransferase 35 U/L (13-39); Bilirubin,Total 0.9 mg/dl (0.2-1.0); Creatine Kinase 976 U/L (30-223); Globulin 3.2 gm/dl (2.5-4.0); Lipase < 3 U/L (11-82); Magnesium 1.7 mg/dl (1.7-2.4); Total Protein 6.6 gm/dl (6.0-8.3)
[2024-10-20 17:54] LABS: Thyroid Stimulating Hormone 2.823 uIu/ml (0.300-4.500)
--- NOTE | 2024-10-20 18:11 | CT Scan Report ---
INDICATION: Pain and injury. COMPARISON: CT from 06/05/2024 TECHNIQUE: Axial CT images of the cervical spine were obtained without IV contrast administration. Coronal and sagittal reformations were reviewed. FINDINGS: Cervical vertebral body heights and alignment are maintained. No acute fracture or traumatic subluxation. Mild multilevel disc space narrowing and facet arthropathy. Neck soft tissues and lung apices appear grossly unremarkable. IMPRESSION: No acute fracture. Electronically signed by Callum Kline 10-20-2024 6:11 PM
--- NOTE | 2024-10-20 18:14 | CT Scan Report ---
INDICATION: Pain and injury. COMPARISON: Report from CT chest, abdomen and pelvis from 06/05/2024 - images not available for comparison at this time. TECHNIQUE: Axial CT images of the chest, abdomen and pelvis were obtained following IV contrast administration. Coronal and sagittal reformations were reviewed. FINDINGS: Chest: The thoracic aorta appears normal in caliber. The heart is mildly enlarged. No pericardial or pleural effusion. No pneumothorax. No pathologically enlarged mediastinal or hilar lymph nodes. No pulmonary consolidation. Moderate to severe emphysema. No acute osseous abnormality evident. Degenerative changes in the spine. T12 compression fracture as described on prior CT. chronic appearing rib deformities. Bilateral gynecomastia noted. Abdomen and pelvis: The liver, gallbladder, spleen and adrenal glands appear unremarkable. No hydronephrosis. Left renal cyst measuring 5.8 cm. Calcifications in the pancreas likely related to degree of chronic pancreatitis. Negative for abdominal aortic aneurysm or dissection. No evidence of bowel obstruction/colitis/appendicitis. Mild amount of retained colonic stool. No free air. No drainable fluid collection. Urinary bladder distention. Degenerative changes in the spine. Mildly impacted fracture of the left greater trochanter. IMPRESSION: Mildly impacted fracture of the left greater trochanter. Otherwise none acute process in the chest, abdomen or pelvis. Electronically signed by Callum Kline 10-20-2024 6:11 PM
--- NOTE | 2024-10-20 20:05 | XRay Report ---
Exam(s): XR HIP + PELVIS, 1 view EXAM: XR Left Hip With Pelvis When Performed, 2 Views CLINICAL HISTORY: Reason for exam: pain fall. TECHNIQUE: Frontal view of the left hip with pelvis when performed. COMPARISON: X-ray pelvis: 06/05/2024 FINDINGS: Bones/joints: No acute fracture. No dislocation. Shortened left femoral neck seen similar to prior comparison. Soft tissues: Unremarkable. Other findings: Large amount of retained stool in the rectosigmoid. Calcified phleboliths overlies the lower pelvis.. IMPRESSION: No radiographic evidence of acute fracture or dislocation. . Electronically signed by: Harini Lechuga MD, DABR 10/20/24 20:04 PM
[2024-10-20 23:21] LABS: Appearance Urine Clear (Clear); Bacteria Urine Automated None Seen (None Seen); Bilirubin Urine Negative (Negative); Blood Urine Trace (Negative); Cast Urine Automated 0-2 /lpf (0-2); Color Urine Yellow; Epithelial Cell Urine Auto 0-2 /hpf (0-2); Glucose Urine UA Negative (Negative); Ketones Urine Negative (Negative); Leukocyte Esterase Urine 3+ (Negative); Nitrite Urine Negative (Negative); Protein Urine Trace (Negative); RBC Urine Automated 0-2 /hpf (0-2); Specific Gravity Urine 1.018 (1.000-1.030); Urobilinogen Urine Negative (Negative); WBC Urine Automated >50 /hpf (0-5); pH Urine 5.5 (4.5-7.5)
--- NOTE | 2024-10-21 00:37 | History & Physical Report ---
Date of Service October 21, 2024 Assessment & Plan (1) Closed fracture of greater trochanter of left femur: Plan: 74-year-old male with past medical history significant for diabetes, hypotension on midodrine, GERD, presents with fall and found to have a left greater trochanter fracture. Patient lives alone. He walks without support at home. Son lives upstairs. Says he felt somewhat disoriented and fell on the left side. Slightly hit his head but no loss of consciousness. Not able to get up. Currently have pain in the left hip region. Denies any headache. No dizziness. No runny nose or sore throat. Has some cough. Smokes about 1 pack a day. De nies any chest pain or shortness of breath. Denies nausea. No abdominal pain. Normal bowel and bladder movements. Appetite is okay. Hemodynamics are okay. Closed fracture of greater trochanter of left femur Status post fall Pain control N.p.o., gentle fluids Ortho consulted for further recommendations History of diabetes Cut back on Lantus to 3 units as patient is n.p.o. Hold metformin Sliding scale Will monitor Right great toe wound on posterior aspect with some drainage empiric zosyn and doxy. will follow cultures follow xray wound care. ortho consulted Rhabdomyolysis cpk 976 getting fluids follow repeat levels History of hypotension On midodrine GERD On Protonix Tobacco abuse Counseling Mild wheezing Nebs as needed Elevated alk phosphate 306 chronically elevated in 200's follow repeat labs Mild Lower extremity edema seems chronic follow echo DVT prophylaxis SCDs for now if no procedures planned will place on lovenox. Disposition Medical floor Full code History of Present Illness Chief Complaint: Status post fall and left greater trochanter fracture Primary Care Provider: Jennifer Soni 74-year-old male with past medical history significant for diabetes, hypotension on midodrine, GERD, presents with fall and found to have a left greater trochanter fracture. Patient lives alone. He walks without support at home. Son lives upstairs. Says he felt somewhat disoriented and fell on the left side. Slightly hit his head but no loss of consciousness. Not able to get up. Currently have pain in the left hip region. Denies any headache. No dizziness. No runny nose or sore throat. Has some cough. Smokes about 1 pack a day. Denies any chest pain or shortness of breath. Denies nausea. No abdominal pain. Normal bowel and bladder movements. Appetite is okay. Hemodynamics are okay. Past medical history. As mentioned above. Past surgical history. EGD. Colonoscopy. Tooth extraction. Social history. Smokes 1 pack a day. Denies alcohol use. No drug use. Family history. No family history on file. Allergies Allergy/AdvReac Type Severity Reaction Status Date / Time No Known Allergies Allergy Verified 02/28/24 17:00 Home Medications Medication Instructions Recorded Confirmed Type magnesium oxide 400 mg (241.3 mg 400 mg PO TID 04/05/23 10/20/24 History magnesium) tablet cholecalciferol (vitamin D3) 125 125 mcg PO HS 06/18/23 10/20/24 History mcg (5,000 unit) tablet (Vitamin D3) metformin 1,000 mg tablet 1,000 mg PO .DAILY AFTER SUPPER 06/18/23 10/20/24 History potassium chloride 20 mEq 20 meq PO .DAILY AFTER SUPPER 11/09/23 10/20/24 History tablet,extended release(part/cryst) insulin aspart U-100 100 unit/mL 1 sliding scale dose subcut AC 02/21/24 10/20/24 History (3 mL) subcutaneous pen (Novolog FlexPen U-100 Insulin aspart) insulin glargine 100 unit/mL (3 6 unit subcut QAM 02/21/24 10/20/24 History mL) subcutaneous pen (Lantus Solostar U-100 Insulin) pantoprazole 20 mg tablet,delayed 20 mg PO DAILYBB 02/21/24 10/20/24 History release midodrine 5 mg tablet 5 mg PO TID #90 tabs 03/06/24 10/20/24 Rx clobetasol 0.05 % topical cream 1 applic topical UD 10/20/24 10/20/24 History clotrimazole-betamethasone 1 1 applic topical BID 10/20/24 10/20/24 History %-0.05 % topical cream gabapentin 300 mg capsule 300 mg PO TID 10/20/24 10/20/24 History Past Med/Surg History Problem List (Updated 10/21/24 @ 06:19 by Kristian Neff MD) Closed fracture of greater trochanter of left femur (Acute) Fall from standing (Acute) Rhabdomyolysis (Acute) Dermatitis of lower extremity GERD (gastroesophageal reflux disease) Alcohol intoxication Closed T12 fracture Fall (Acute) Hypoxia (Acute) Pneumonia Hypomagnesemia (Acute) Leukocytosis (Acute) Elevated lactic acid level (Acute) CARLO (acute kidney injury) (Acute) Acute hypotension (Acute) Hypoxia (Acute) Metabolic encephalopathy Exposure to body fluid Cellulitis (Acute) Fecal soiling due to fecal incontinence Acute dehydration (Acute) Acute hypotension (Acute) Acute UTI (Acute) Encounter for pre-operative examination Right nephrolithiasis Weakness Low blood pressure DM2 (diabetes mellitus, type 2) GERD (gastroesophageal reflux disease) Esophageal candidiasis Urinary retention Phimosis Hydronephrosis, right Medical History CARLO (acute kidney injury) C. difficile colitis Hypomagnesemia Septic shock Hypomagnesemia Acute kidney injury superimposed on CKD Sepsis due to urinary tract infection Metabolic encephalopathy 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 Diabetes mellitus, type 2 Cataract upcoming surgery for correction Low blood pressure On Midodrine Chronic obstructive pulmonary disease Surgical History History of esophagogastroduodenoscopy (EGD) History of colonoscopy History of tooth extraction Family History Other No family history of adverse response to anesthesia Social History Smoking Status: Current every day smoker Tobacco Type: Cigarettes Cigarettes Per Day: 20; Second Hand Exposure: No; Do You Dip or Chew Tobacco: No; Tobacco Cessation Education Requested by Patient: No Hx Alcohol Use: No Hx Substance Use: No Preferred Language: Occitan Communication Ability: Effective Cocktail Waitress Required: No Beliefs That Will Affect Care: None Current Living Situation: Alone Current Living Situation Comment: son lives down the road Other Information That Helps Us Care for You: No Feels Safe at Home: Yes Safety Concerns: Feels Safe At This Time Assistive Devices: Cane, Denture - Upper, Denture - Lower, Glasses, Walker and Wheelchair Review of Systems Review of Systems: All systems reviewed & are unremarkable except as noted in HPI & below Physical Exam Physical Exam: General- Not in acute distress Head- atraumatic Eyes- PERRL. ENT- oropharynx clear Neck- supple, no JVD. Lungs- clear to auscultation no wheezing or crackles Heart- regular rhythm; no murmur, no gallop. Abdomen- normal bowel sounds, soft, nontender, no distension Extremities- b/l lower extremity chronic skin changes seen, mild LE edema seen. open wound with some drainage seen on posterior aspect right great toe Neuro- alert, oriented PERRL, no facial palsy; no dysarthria; Results & Data Results & Data Vital Signs (Past 12 Hours) Vital Signs Temp Pulse Pulse Resp BP BP Pulse Ox 10/21/24 00:00 81 16 128/80 91 10/20/24 23:30 76 18 118/74 93 10/20/24 23:03 79 19 116/70 93 10/20/24 22:37 78 10/20/24 21:41 81 18 115/66 94 10/20/24 18:42 83 10/20/24 17:04 89 14 128/79 93 10/20/24 16:00 37.1 C 93 H 18 117/78 93 O2 Del Method O2 Flow Rate 10/21/24 00:00 10/20/24 23:30 10/20/24 23:03 10/20/24 22:37 10/20/24 21:41 Nasal Cannula 2 10/20/24 18:42 10/20/24 17:04 Room Air 10/20/24 16:00 Room Air Diagnostic Findings Laboratory Results WBC 9.98 K/ul (4.8-10.8) 10/20/24 17:00 RBC 4.38 M/uL (4.70-6.10) L 10/20/24 17:00 Hgb 13.9 g/dl (14.0-18.0) L 10/20/24 17:00 POC Hgb 14.3 g/dl (14.0-18.0) 10/20/24 17:10 Hct 40.4 % (42.0-52.0) L 10/20/24 17:00 POC Hct 42 % (42-52) 10/20/24 17:10 MCV 92.2 fL (80.0-100.0) 10/20/24 17:00 MCH 31.7 pg (25.0-34.0) 10/20/24 17:00 MCHC 34.4 g/dL (32.0-36.0) 10/20/24 17:00 RDW Std Deviation 45.9 fL (36.4-46.3) 10/20/24 17:00 RDW Coeff of Cassia 13.5 % (11.5-14.5) 10/20/24 17:00 Plt Count 219 K/uL (130-400) 10/20/24 17:00 MPV 9.0 fL (9.4-12.4) L 10/20/24 17:00 Immature Gran % (Auto) 0.8 % 10/20/24 17:00 Neut % (Auto) 69.0 % 10/20/24 17:00 Lymph % (Auto) 20.7 % 10/20/24 17:00 Republic % (Auto) 7.2 % 10/20/24 17:00 Eos % (Auto) 1.7 % 10/20/24 17:00 Baso % (Auto) 0.6 % 10/20/24 17:00 Neut # (Auto) 6.88 K/uL (1.40-6.50) H 10/20/24 17:00 Lymph # (Auto) 2.07 K/uL (1.20-3.40) 10/20/24 17:00 Republic # (Auto) 0.72 K/uL (0.11-0.59) H 10/20/24 17:00 Eos # (Auto) 0.17 K/uL (0.00-0.50) 10/20/24 17:00 Baso # (Auto) 0.06 K/uL (0.00-0.20) 10/20/24 17:00 Immature Gran # (Auto) 0.08 K/uL (0.01-0.20) 10/20/24 17:00 PT 11.9 Seconds (9.0-12.0) 10/20/24 17:00 INR 1.1 (0.9-1.1) 10/20/24 17:00 POC Sodium 139 mmol/L (135-144) 10/20/24 17:10 Sodium 139 mmol/L (136-145) 10/20/24 17:00 POC Potassium 4.9 mmol/L (3.3-5.0) 10/20/24 17:10 Potassium 5.0 mmol/L (3.5-5.1) 10/20/24 17:00 POC Chloride 105 mmol/L (101-112) 10/20/24 17:10 Chloride 105 mmol/L (98-107) 10/20/24 17:00 Carbon Dioxide 27 mmol/L (21-32) 10/20/24 17:00 POC Total CO2 24 mmol/L (24-31) 10/20/24 17:10 Anion Gap 7 (3-11) 10/20/24 17:00 POC Anion Gap 16.0 mmol/L (16-25) 10/20/24 17:10 POC BUN 18 mg/dl (7-18) 10/20/24 17:10 BUN 18 mg/dl (6-23) 10/20/24 17:00 Creatinine 1.32 mg/dl (0.6-1.4) 10/20/24 17:00 POC Creatinine 1.3 mg/dl (0.6-1.3) 10/20/24 17:10 Est Cr Clr Drug Dosing 42.1 ml/min 10/20/24 17:00 eGFR 56.25 10/20/24 17:00 BUN/Creatinine Ratio 13.6 (10-20) 10/20/24 17:00 Glucose 254 mg/dl (70-99(Fasting)) H 10/20/24 17:00 POC Glucose (other) 243 mg/dl (70-99) H 10/20/24 17:10 Calcium 8.6 mg/dl (8.6-10.3) 10/20/24 17:00 POC Ioniz Calcium Paulino 1.09 mmol/l (1.12-1.32) L 10/20/24 17:10 Magnesium 1.7 mg/dl (1.7-2.4) 10/20/24 17:00 Total Bilirubin 0.9 mg/dl (0.2-1.0) 10/20/24 17:00 AST 35 U/L (13-39) 10/20/24 17:00 ALT 14 U/L (7-52) 10/20/24 17:00 Alkaline Phosphatase 306 U/L (34-104) H 10/20/24 17:00 Total Creatine Kinase 976 U/L (30-223) H 10/20/24 17:00 Troponin I High Sens 12.4 pg/ml (0-20) 10/20/24 17:00 Total Protein 6.6 gm/dl (6.0-8.3) 10/20/24 17:00 Albumin 3.4 gm/dl (3.4-5.0) 10/20/24 17:00 Globulin 3.2 gm/dl (2.5-4.0) 10/20/24 17:00 Albumin/Globulin Ratio 1.1 (0.9-2) 10/20/24 17:00 Lipase < 3 U/L (11-82) L 10/20/24 17:00 TSH 2.823 uIu/ml (0.300-4.500) 10/20/24 17:00 Urine Color Yellow 10/20/24 22:54 Urine Appearance Clear (Clear) 10/20/24 22:54 Urine pH 5.5 (4.5-7.5) 10/20/24 22:54 Ur Specific [place] 1.018 (1.000-1.030) 10/20/24 22:54 Urine Protein Trace (Negative) H 10/20/24 22:54 Urine Glucose (UA) Negative (Negative) 10/20/24 22:54 Urine Ketones Negative (Negative) 10/20/24 22:54 Urine Blood Trace (Negative) H 10/20/24 22:54 Urine Nitrite Negative (Negative) 10/20/24 22:54 Urine Bilirubin Negative (Negative) 10/20/24 22:54 Urine Urobilinogen Negative (Negative) 10/20/24 22:54 Ur Leukocyte Esterase 3+ (Negative) H 10/20/24 22:54 Urine WBC (Auto) >50 /hpf (0-5) H 10/20/24 22:54 Urine RBC (Auto) 0-2 /hpf (0-2) 10/20/24 22:54 U Hyaline Cast (Auto) 0-2 /lpf (0-2) 10/20/24 22:54 U Epithel Cells (Auto) 0-2 /hpf (0-2) 10/20/24 22:54 Urine Bacteria (Auto) None Seen (None Seen) 10/20/24 22:54 Impressions Abdomen/Pelvis CT 10/20/24 16:30 INDICATION: Pain and injury. COMPARISON: Report from CT chest, abdomen and pelvis from 06/05/2024 - images not available for comparison at this time. TECHNIQUE: Axial CT images of the chest, abdomen and pelvis were obtained following IV contrast administration. Coronal and sagittal reformations were reviewed. FINDINGS: Chest: The thoracic aorta appears normal in caliber. The heart is mildly enlarged. No pericardial or pleural effusion. No pneumothorax. No pathologically enlarged mediastinal or hilar lymph nodes. No pulmonary consolidation. Moderate to severe emphysema. No acute osseous abnormality evident. Degenerative changes in the spine. T12 compression fracture as described on prior CT. chronic appearing rib deformities. Bilateral gynecomastia noted. Abdomen and pelvis: The liver, gallbladder, spleen and adrenal glands appear unremarkable. No hydronephrosis. Left renal cyst measuring 5.8 cm. Calcifications in the pancreas likely related to degree of chronic pancreatitis. Negative for abdominal aortic aneurysm or dissection. No evidence of bowel obstruction/colitis/appendicitis. Mild amount of retained colonic stool. No free air. No drainable fluid collection. Urinary bladder distention. Degenerative changes in the spine. Mildly impacted fracture of the left greater trochanter. IMPRESSION: Mildly impacted fracture of the left greater trochanter. Otherwise none acute process in the chest, abdomen or pelvis. Electronically signed by Callum Kline 10-20-2024 6:[address] 10/20/24 16:30 INDICATION: Pain and injury. COMPARISON: CT from 06/05/2024 TECHNIQUE: Axial CT images of the cervical spine were obtained without IV contrast administration. Coronal and sagittal reformations were reviewed. FINDINGS: Cervical vertebral body heights and alignment are maintained. No acute fracture or traumatic subluxation. Mild multilevel disc space narrowing and facet arthropathy. Neck soft tissues and lung apices appear grossly unremarkable. IMPRESSION: No acute fracture. Electronically signed by Callum Kline 10-20-2024 6:[address] 10/20/24 16:30 INDICATION: Pain and injury. COMPARISON: Report from CT chest, abdomen and pelvis from 06/05/2024 - images not available for comparison at this time. TECHNIQUE: Axial CT images of the chest, abdomen and pelvis were obtained following IV contrast administration. Coronal and sagittal reformations were reviewed. FINDINGS: Chest: The thoracic aorta appears normal in caliber. The heart is mildly enlarged. No pericardial or pleural effusion. No pneumothorax. No pathologically enlarged mediastinal or hilar lymph nodes. No pulmonary consolidation. Moderate to severe emphysema. No acute osseous abnormality evident. Degenerative changes in the spine. T12 compression fracture as described on prior CT. chronic appearing rib deformities. Bilateral gynecomastia noted. Abdomen and pelvis: The liver, gallbladder, spleen and adrenal glands appear unremarkable. No hydronephrosis. Left renal cyst measuring 5.8 cm. Calcifications in the pancreas likely related to degree of chronic pancreatitis. Negative for abdominal aortic aneurysm or dissection. No evidence of bowel obstruction/colitis/appendicitis. Mild amount of retained colonic stool. No free air. No drainable fluid collection. Urinary bladder distention. Degenerative changes in the spine. Mildly impacted fracture of the left greater trochanter. IMPRESSION: Mildly impacted fracture of the left greater trochanter. Otherwise none acute process in the chest, abdomen or pelvis. Electronically signed by Callum Kline 10-20-2024 6:[address] 10/20/24 16:30 INDICATION: Pain and injury. COMPARISON: CT brain from 02/21/2024. TECHNIQUE: Axial CT images of the head were obtained without IV contrast. Coronal and sagittal reformations were reviewed. FINDINGS: Bravo-white differentiation is relatively preserved. No mass, mass effect or midline shift. Chronic ischemic white matter changes. Mild cortical atrophy. No evidence of acute large territorial infarction or acute intracranial hemorrhage. Ventricles appear normal in size. Basal cisterns are patent. No depressed calvarial fracture. IMPRESSION: No acute intracranial process. Electronically signed by Callum Kline 10-20-2024 5:42 PM Hip/Pelvis X-Ray 10/20/24 16:30 Exam(s): XR HIP + PELVIS, 1 view EXAM: XR Left Hip With Pelvis When Performed, 2 Views CLINICAL HISTORY: Reason for exam: pain fall. TECHNIQUE: Frontal view of the left hip with pelvis when performed. COMPARISON: X-ray pelvis: 06/05/2024 FINDINGS: Bones/joints: No acute fracture. No dislocation. Shortened left femoral neck seen similar to prior comparison. Soft tissues: Unremarkable. Other findings: Large amount of retained stool in the rectosigmoid. Calcified phleboliths overlies the lower pelvis.. IMPRESSION: No radiographic evidence of acute fracture or dislocation. . Electronically signed by: Harini Lechuga MD, SANTIAGO 10/20/24 20:04 PM ECG Additional Comments: ECG. Normal sinus rhythm at 91. Left anterior fascicular block. No acute ST changes seen. Code Status & VTE Plan VTE Prophylaxis Plan VTE Prophylaxis will be ordered: Yes
[2024-10-21] MEDS ORDERED: POLYETHYLENE (MIRALAX) 17 GM PACK PO PRN (02:36)
[2024-10-21] MEDS ORDERED: GLUCAGON FOR INJ 1 MG VIAL SQ PRN (02:36)
[2024-10-21] MEDS ORDERED: GLUCOSE 40% GEL 15 GM TUBE PO PRN (02:36)
[2024-10-21] MEDS ORDERED: LEVALBUTEROL 1.25 MG/3 ML NEB NEB PRN (02:36)
[2024-10-21] MEDS ORDERED: GLUCOSE 10 TAB/TUBE PO PRN (02:36)
[2024-10-21] MEDS ORDERED: DEXTROSE 50% 50 ML SYRINGE IV PRN (02:36)
--- OUTSIDE RECORDS SUMMARY | 2024-10-21 04:53 | External Medical Summary | Summary of Care ---
Author Name Unknown Organization [facility] Address [address] [address] Phone [phone] Care Team Providers Care Industrial Engineering Manager Name Role Phone Eve Soni MD Primary Care Provider [phone] Reason for Visit * Reason Onset Date Comments Precert Not Needed 08/21/2024 Encounter Details Date Type Department Care Team (Late st Contact Info) Description 08/21/2024 Telephone Ophthalmology, [facility] [address] [place] [address] Hern[place] Sun, [address] [place] [id number] Precert Not Needed Allergies No known active allergiesdocumented as of this encounter (statuses as of 08/21/2024) Medications metFORMIN HCl 500 MG Oral Tablet (Glucophage) Take 1 Tablet by mouth 2 times a day with morning and evening meals. Active glipiZIDE ER 2.5 MG Oral Tablet Extended Release 24 Hour (glipiZIDE XL) Take 1 Tablet by mouth in the morning. Active Pioglitazone HCl 45 MG Oral Tablet (Actos) Take 1 Tablet by mouth in the morning. Active Gabapentin 300 MG Oral Capsule (Neurontin) take 1 capsule by mouth three times per day as needed for foot pain 270 Capsule 4 1:28 PM EDT 01/24/20 24 Active metFORMIN HCl 1000 MG Oral Tablet (Glucophage) Take one tablet by mouth after supper 90 Tablet 01/24/20 24 Active Potassium Chloride [place] ER 20 MEQ Oral Tablet Extended Release take 1 tablet by mouth after supper 90 Tablet 4 1:28 PM EDT 01/24/20 24 Active Insulin Glargine Solostar 100 UNIT/ML Subcutaneous Solution Pen-injector (Lantus SoloStar) Use 6 units subcutaneously in the morning 15 mL 01/24/20 24 Active Magnesium Oxide 400 MG Oral Tablet take one tablet by mouth daily in morning and at bedtime 180 Tablet 01/24/20 24 Active Pantoprazole Sodium 20 MG Oral Tablet Delayed Release (Protonix) take 1 tablet by mouth every morning on empty stomach 90 Tablet 4 1:28 PM EDT 01/24/20 24 Active NovoLOG FlexPen 100 UNIT/ML Subcutaneous Solution Pen-injector (insulin aspart) sliding scale subcutaneously three times a day-maximum daily use 33 units 30 mL 01/28/20 24 Active Magnesium Oxide 400 MG Oral Tablet take one tablet by mouth daily in morning and at bedtime 180 Tablet 04/22/20 24 Active Vitamin D3 125 MCG (5000 UT) Oral Capsule take 1 capsule by mouth at bedtime 90 Capsule 04/22/20 24 Active metFORMIN HCl 1000 MG Oral Tablet (Glucophage) Take 1 tablet by mouth after supper 90 Tablet 4 8:39 AM EDT 05/04/20 24 Active metFORMIN HCl 1000 MG Oral Tablet (Glucophage) Take one tablet by mouth after supper 90 Tablet 06/16/20 24 Active Pantoprazole Sodium 20 MG Oral Tablet Delayed Release (Protonix) take 1 tablet by mouth every morning on an empty stomach 90 Tablet 4 6:36 AM EDT 06/16/20 24 Active Potassium Chloride [place] ER 20 MEQ Oral Tablet Extended Release take 1 tablet by mouth after supper 90 Tablet 4 1:18 PM EDT 06/16/20 24 Active Clobetasol Propionate 0.05 % External Cream (Temovate) apply sparingly to affected areas twice a day for two weeks on and two weeks off 135 g 1 4 6:44 AM EDT 07/13/20 24 Active Clotrimazole-Bet amethasone 1-0.05 % External Cream (Lotrisone) apply cream to skin of twice a day to affected area two weeks per month 135 g 1 4 6:44 AM EDT 07/13/20 24 Active Gabapentin 300 MG Oral Capsule (Neurontin) take 1 capsule by mouth three times per day 270 Capsule 07/13/20 24 Active Insulin Glargine Solostar 100 UNIT/ML Subcutaneous Solution Pen-injector (Lantus SoloStar) Use 6 units subcutaneously in the morning 9 mL 1 4 11:03 AM EDT 07/13/20 24 Active Magnesium Oxide 400 MG Oral Tablet take one tablet by mouth three times per day 180 Tablet 1 07/13/20 24 Active metFORMIN HCl 1000 MG Oral Tablet (Glucophage) Take one tablet by mouth after supper 90 Tablet 1 4 6:36 AM EDT 07/13/20 24 Active Midodrine HCl 5 MG Oral Tablet (Proamatine) take one tablet by mouth three times per day 270 Tablet 4 6:36 AM EDT 07/13/20 24 Active Pantoprazole Sodium 20 MG Oral Tablet Delayed Release (Protonix) take 1 tablet by mouth every morning on empty stomach 90 Tablet 07/13/20 24 Active Hospital, Clinic, or Other Facility Administered Medication Ordered Dose Route Frequency Start Date End Date Status bevaCIZumab (Avastin) inj 1.25 mgIndications:Choroidal neovascular membrane, left 1.25 mg IZ PRN 08/21/2024 5 Active ROPivacaine (Naropin) inj 1.5 mgIndications:Choroidal neovascular membrane, left 1.5 mg IJ PRN 08/21/2024 5 Active documented as of this encounter (statuses as of 08/21/2024) Active Problems Problem Noted Date Diagnosed Date Visual distortions of shape and size 06/19/2023 documented as of this encounter (statuses as of 08/21/2024) Social History Tobacco Use Types Packs/Day Years [...] Recorded Sex Assigned at Not on file Legal Sex Male 5:27 AM EST Gender Identity Not on file Sexual Orientation Not on file documented as of this encounter Miscellaneous Notes * Telephone Encounter - Yumiko Waggoner LPN - 08/21/2024 12:24 PM EST New Medication Insurance: [facility] Colin Provider: Hernando Sun DO Tax ID: [id number] Office Address: [address] [place] [address] [place] [address] Office Office Drug Name/CPT: Avastin ICD 10: H35.052 Dosage: 1.25 Eye Treated: left Frequency: every 4-6 weeks Prior Eye medications received: none Specialty Pharmacy/Buy and bill? Office stock documented in this encounter Plan of Treatment Upcoming Encounters Date Type Department Care Team (Late st Contact Info) Description 10/26/2024 8:30 AM EST Office Visit Ophthalmology, [facility] [address] [place] [id number] Hernando Sun DO [address] [place] [id number] Health Maintenance Due Date Last Done Comments Pneumococcal Vaccine: 65+ Years (1 of 2 - PCV) 1955 Depression Screening 1961 Hepatitis C Screening 1967 DTap/Tdap Vaccines (1 - Tdap) 01/14/1968 Zoster Vaccines (1 of 2) 01/14/1968 COVID-19 Vaccine (4 - 2023-2 5 season) 2024 11/03/2021, 03/15/2021, 02/15/2021 Influenza Vaccine (FLU shot) (#1) 2024 Lung Cancer Screening Completed 03/04/2015 HPV (Gardasil) Vaccine Aged Out No lo nger eligible based on patient's age to complete this topic Hepatitis B Vaccine Aged Out No longe r eligible based on patient's age to complete this topic MENINGOCOCCAL (MENACTRA/MENVEO) Aged Out No longer eligible b ased on patient's age to complete this topic documented as of this encounter Medical Devices Not on filedocumented as of this encounter Visit Diagnoses Diagnosis Choroidal neovascular membrane, left- Primary documented in this encounter Care Teams Industrial Engineering Manager Relationship Specialty Start Date End Date Eve Soni MD [address] [place] [address] [place] [id number] PCP - General 05/31/09 documented as of this encounter
--- OUTSIDE RECORDS SUMMARY | 2024-10-21 04:53 | External Medical Summary | Summary of Care ---
Author Name Unknown Organization [facility] Address [address] [address] Phone [phone] Care Team Providers Care Senior Mortgage Loan Processor Name Role Phone Eve Soni MD Primary Care Provider [phone] [phone] Reason for Visit * Reason Comments Follow Up Encounter Details Date Type Department Care Team (Late st Contact Info) Description 08/21/2024 9:30 AM EST Office Visit Ophthalmology, [facility] [address] [place] [address] Hernando Sun, [address] [place] [address] Choroidal neovascular membrane, left*; Visual distortions of shape and size Allergies No known active allergiesdocumented as of [...] on file documented as of this encounter Progress Notes * Hernando Sun, - 08/21/2024 9:30 AM EST [facility] [place] Nursing Notes: Shalonda Kunz, ROBERTO 08/21/24 0932 Signed Randall Griffin is a 74 year old year old male who presents for Macular Deposits/ AMD/ Adult Vitelliform. Last Office Visit: 06/19/2023 (in office), Visit date not found (telemedicine) Patient currently states left eye is blurry Are you diabetic? Yes. Do you check your blood sugars daily? YES. Fasting BS this mornin mg/dl. Last Hemoglobin A1C: around 7 No results found for: "HGBA1C" Do you drive? no OCT image(s) of both eyes acquired and filed/scanned into chart. Base Eye Exam Visual Acuity (Snellen - Linear) Right Left Dist cc 20/40 -2 20/800 -1 Dist ph cc 20/350 -2 Correction: Glasses Tonometry (Tonopen, 9:30 AM) Right Left Pressure 8 8 Pupils Pupils Shape React APD Right PERRL Round Slow None Left PERRL Round Slow None Visual Hernández (Counting fingers) Right Left Full Extraocular Movement Right Left Full, Ortho Full, Ortho Neuro/Psych Oriented x3: Yes Mood/Affect: Normal Dilation Both eyes: 0.5% Proparacaine @ 9:28 AM Dilation #2 Both eyes: 1.0% Mydriacyl, 2.5% Phenylephrine @ 9:30 AM Dilation #3 Both eyes: 1.0% Mydriacyl @ 9:32 AM Dilation Comments Patient cautioned that effects of dilation may last 2-7 hours dependant upon individual reaction. It was discussed that driving while dilated is not recommended. EXTERNAL: The ocular adnexae are unremarkable. SLE: Lids/Lashes: wnl OU Conjunctiva/Sclera: quiet OU Cornea: clear OU Anterior Chamber: deep and quiet OU Iris: normal OU; no NVI OU Lens: PCIOL OU Dilated fundus exam OD: vitreous: clear optic nerve: 0.3, no edema/pallor/NVD macula: trace central yellow lesion vessels: wnl periphery: wnl, no RT/RD Dilated fundus exam OS: vitreous: clear optic nerve: 0.25, no edema/pallor/NVD macula: srfibrosis, erm vessels: wnl periphery: wnl, no RT/RD OCT Interpretation: OD: central rpe elevation, no irf/srf OS: shrm/fibrosis w/ overlying cystic changes A/P: 1. CNV OS -AMD, adult vitelliform -OCT OD and appearance on exam (limited due to cataracts) most c/w adult vitelliform -SRFibrosis OS; pt wants trial of Avastin (feels VA improved after CE last year but then declined OS soon after and did not f/u due to multiple hospitalizations) -Avastin 08/21/2024 2. DM2 -no retinopathy -recommend HgbA1C <7, BP and lipid control. -An examination for this condition was completed which is unrelated to the procedure that was performed today -monitor 3. Pseudophakia OU -stable F/u 4-6 weeks, OCT OU Hernando Sun DO CC: Ilia Tavares MD CC: PCP: Eve Soni MD TIMEOUT PROCEDURE: correct patient identity-YES correct procedure and consent-YES verified side and site-YES correct patient position-YES all necessary equipment/prior studies present-YES reviewed special requirements of this patient-YES PROCEDURE: Intravitreal injection of Avastin 1.25mg OS INFORMED CONSENT: Patient is aware that this is an off-label use of Avastin and that Avastin is not FDA approved for this use. Risks, benefits and alternatives have been discussed with the patient. Risks include, but are not limited to: retinal tears, detachments, hemorrhage, glaucoma, infection, cataracts, need formore procedures and the potential risk of arterial thromboembolic events following use of intravitreal VEGF inhibitors defined as nonfatal stroke, nonfatal myocardial infarction or vascular . Patient is aware of these risks and consents to the procedure. DESCRIPTION OF PROCEDURE: The procedure site was confirmed. Topical proparacaine was applied to the surface of the eye after which subconjunctival anesthetic was administered. The area was prepped in the standard aseptic manner with 5% Betadine solution. An eyelid speculum was placed and 0.05 ml of a 25mg/ml solution of Avastin was injected 3.75 mm posterior to the limbus into the midvitreous cavity with a 30 gauge short needle. The Betadine was flushed from the eye, the eye speculum was removed and optic nerve perfusion was insured. The patient tolerated the procedure without difficulty and was given followup instructions and instructed to use ophthalmic ointment 3x/day as needed. Hernando Sun DO, performed the procedure in its entirety. documented in this encounter Nursing Notes * Yumiko Waggoner LPN - 08/21/2024 10:01 AM EST Randall Griffin to receive first Avastin 1.25mg Injection of the Left eye. Correct eye confirmed with patient and marked by Hernando Sun DO Avastin 1.25mg lot # [id number] Exp. Date: 10/20/2024 * Shalonda Kunz TECH - 08/21/2024 9:22 AM EST Randall Griffin is a 74 year old year old male who presents for Macular Deposits/ AMD/ Adult Vitelliform. Last Office Visit: 06/19/2023 (in office), Visit date not found (telemedicine) Patient currently states left eye is blurry Are you diabetic? Yes. Do you check your blood sugars daily? YES. Fasting BS this mornin mg/dl. Last Hemoglobin A1C: around 7 No results found for: "HGBA1C" Do you drive? no OCT image(s) of both eyes acquired and filed/scanned into chart. documented in this encounter Plan of Treatment Upcoming Encounters Date Type Department Care Team (Late st Contact Info) Description 10/26/2024 8:30 AM EST Office Visit Ophthalmology, [facility] [address] [place] [address] Hernando Sun DO [address] [place] [address] Scheduled Orders Name Type Priority Associated Diagnoses Orde r Schedule RETINA SCAN DIAGNOSTIC IMAGE, POSTERIOR Procedures Routine Visual distortions of shape and size Ordered: 08/21/2024 Health Maintenance Due Date Last Done Comments Pneumococcal Vaccine: 65+ Years (1 of 2 - PCV) 1955 Depression Screening 1961 Hepatitis C Screening 1967 DTap/Tdap Vaccines (1 - Tdap) 01/14/1968 Zoster Vaccines (1 of 2) 1999 COVID-19 Vaccine (4 - 2023-2 5 season) [...] Diagnoses Diagnosis Choroidal neovascular membrane, left- Primary Visual distortions of shape and size documented in this encounter Care Teams Senior Mortgage Loan Processor Relationship Specialty Start Date End Date Eve Soni MD [address] [place] [address] [place] [id number] PCP - General 05/31/09 documented as of this encounter
--- OUTSIDE RECORDS SUMMARY | 2024-10-21 04:53 | External Medical Summary | Summary of Care ---
Author Name Unknown Organization [facility] Address [address] [facility] [address] Phone [phone] Care Team Providers Care Supply Tech Name Role Phone Eve Soni MD Primary Care Provider [phone] [phone] Reason for Visit * Reason Comments Follow Up Encounter Details Date Type Department Care Team (Late st Contact Info) Description 08/21/2024 9:30 AM EST Office Visit Ophthalmology, [facility] [address] [place] [address] Hernando Sun, [address] [place] [address] Choroidal neovascular membrane, left*; Visual distortions of [...] - 08/21/2024 9:30 AM EST [facility] [place] Nursing Notes: Shalonda [...] Hernando Sun DO Avastin 1.25mg lot # [id number] Exp. Date: 10/20/2024 * Shalonda Kunz TECH [...] 10/26/2024 8:30 AM EST Office Visit Ophthalmology, [facility] [address] [place] [address] Hernando Sun DO [address] [place] [address] Scheduled Orders Name Type Priority Associated Diagnoses [...] shape and size documented in this encounter Administered Medications Active Administered Medications - up to 3 most recent administrations Medication Order MAR Action Action Date Dose Rate Site bevaCIZumab (Avastin) inj 1.25 mg 1.25 mg, Intravitreal, PRN Other, Starting on Sat08/21/24 at 1015, Until 08/21/25 at 1014, For 365 daysIndications:Choroidal neovascular membrane, left Given 08/21/2024 10:50 AM EST 1.25 mg Eye Left ROPivacaine (Naropin) inj 1.5 mg 1.5 mg, Injection, PRN Other, Starting on Sat08/21/24 at 1015, Until 08/21/25 at 1014, For 365 daysIndications:Choroidal neovascular membrane, left Given 08/21/2024 10:50 AM EST 1.5 mg Eye Left documented in this encounter Care Teams Supply Tech Relationship Specialty Start Date End Date Eve Soni MD [address] [place] [address] [place] [id number] PCP - General 05/31/09 documented as of this encounter
--- OUTSIDE RECORDS SUMMARY | 2024-10-21 04:53 | External Medical Summary | Summary of Care ---
Author Name Unknown Organization [facility] Address [address] [facility] [address] Phone [phone] Care Team Providers Care Electron Beam Photo Mask Maker Name Role Phone Eve Soni MD Primary Care Provider [phone] [phone] Reason for Visit * Reason Comments Follow Up Encounter Details Date Type Department Care Team (Late st Contact Info) Description 08/21/2024 9:30 AM EST Office Visit Ophthalmology, [facility] [address] [place] [address] Hernando Sun, [address] [place] [address] Choroidal neovascular membrane, left*; Visual distortions of [...] - 08/21/2024 9:30 AM EST [facility] [place] Nursing Notes: Shalonda [...] Hernando Sun DO Avastin 1.25mg lot # [id number] Exp. Date: 10/20/2024 * Shalonda Kunz TECH [...] 10/26/2024 8:30 AM EST Office Visit Ophthalmology, [facility] [address] [place] [address] Hernando Sun DO [address] [place] [address] Scheduled Orders Name Type Priority Associated Diagnoses [...] Left documented in this encounter Care Teams Electron Beam Photo Mask Maker Relationship Specialty Start Date End Date Eve Soni MD [address] [place] [address] [place] [id number] PCP - General 05/31/09 documented as of this encounter
--- OUTSIDE RECORDS SUMMARY | 2024-10-21 04:53 | External Medical Summary | Summary of Care ---
Author Name Unknown Organization [facility] Address [address] [facility] [address] Phone [phone] Care Team Providers Care Safety Council Director Name Role Phone Eve Soni MD Primary Care Provider [phone] [phone] Reason for Visit * Reason Onset Date Comments Precert Not Needed 08/21/2024 Encounter Details Date Type Department Care Team (Late st Contact Info) Description 08/21/2024 Telephone Ophthalmology, [facility] [address] [place] [address] Hernando Sun, [address] [place] [address] Precert Not Needed Allergies No known active [...] 08/21/2024 12:24 PM EST New Medication Insurance: [facility] Colin Provider: Hernando Sun DO Tax ID: [id number] Office Address: [address] [place] [address] [place] [address] Office Office Drug Name/CPT: Avastin ICD 10: H35.052 Dosage: 1.25 Eye Treated: left Frequency: every 4-6 weeks Prior Eye medications received: none Specialty Pharmacy/Buy and bill? Office stock documented in this encounter Plan of Treatment Upcoming Encounters Date Type Department Care Team (Late st Contact Info) Description 10/26/2024 8:30 AM EST Office Visit Ophthalmology, [facility] [address] [place] [address] Hernando Sun DO [address] [place] [address] Health Maintenance Due Date Last Done Comments [...] Primary documented in this encounter Care Teams Safety Council Director Relationship Specialty Start Date End Date Eve Soni MD [address] [place] [address] [place] [id number] PCP - General 05/31/09 documented as of this encounter
--- OUTSIDE RECORDS SUMMARY | 2024-10-21 04:53 | External Medical Summary | Summary of Care ---
Author Name Unknown Organization [facility] Address [address] [facility] [address] Phone [phone] Care Team Providers Care Vault Cashier Name Role Phone Eve Soni MD Primary Care Provider [phone] [phone] Reason for Visit * Reason Comments Follow Up Encounter Details Date Type Department Care Team (Late st Contact Info) Description 08/21/2024 9:30 AM EST Office Visit Ophthalmology, [facility] [address] [place] [address] Hernando Sun, [address] [place] [address] Choroidal neovascular membrane, left*; Visual distortions of [...] - 08/21/2024 9:30 AM EST [facility] [place] Nursing Notes: [...] Hernando Sun DO Avastin 1.25mg lot # [id number] Exp. Date: 10/20/2024 * Shalonda Kunz TECH [...] 10/26/2024 8:30 AM EST Office Visit Ophthalmology, [facility] [address] [place] [address] Hernando Sun DO [address] [place] [address] Scheduled Orders Name Type Priority Associated Diagnoses [...] size documented in this encounter Care Teams Vault Cashier Relationship Specialty Start Date End Date Eve Soni MD [address] [place] [address] [place] [id number] PCP - General 05/31/09 documented as of this encounter
--- OUTSIDE RECORDS SUMMARY | 2024-10-21 04:54 | External Medical Summary | Summary of Care ---
Author Name Unknown Organization [facility] Address [address] [facility] [place] [address] Phone [phone] Care Team Providers Care Sample Color Maker Name Role Phone Eve Soni MD Primary Care Provider [phone] [phone] Reason for Visit * Reason Onset Date Comments Diabetes Management 07/17/2024 Non-ce DM TRIAGE 07/17/2024 Encounter Details Date Type Department Care Team (Late st Contact Info) Description 07/17/2024 Telephone Centralized Clinical Pharmacy Services, Lukas Pearce [address] [place] [address] [place] [address] Ccps, Non Ce Diabetes [address] [place] [address] [place] [phone] Diabetes Management (Non-ce DM ); TRIAGE Allergies No known active allergiesdocumented as of this encounter (statuses as of 07/17/2024) Medications Medication Sig Dispensed Refills Start Date [...] as needed for foot pain 270 Capsule 01/24/2024 Active metFORMIN HCl 1000 MG Oral Tablet (Glucophage) Take one tablet by mouth after supper 90 Tablet 01/24/2024 Active Potassium Chloride [place] ER 20 MEQ Oral Tablet Extended Release take 1 tablet by mouth after supper 90 Tablet 01/24/2024 Active Insulin Glargine Solostar 100 UNIT/ML Subcutaneous Solution Pen-injector (Lantus SoloStar) Use 6 units subcutaneously in the morning 15 mL 01/24/2024 Active Magnesium Oxide 400 MG Oral Tablet take one tablet by mouth daily in morning and at bedtime 180 Tablet 01/24/2024 Active Pantoprazole Sodium 20 MG Oral Tablet Delayed Release (Protonix) take 1 tablet by mouth every morning on empty stomach 90 Tablet 01/24/2024 Active NovoLOG FlexPen 100 UNIT/ML Subcutaneous Solution Pen-injector (insulin aspart) sliding scale subcutaneously three times a day-maximum daily use 33 units 30 mL 01/28/2024 Active Magnesium Oxide 400 MG Oral Tablet take one tablet by mouth daily in morning and at bedtime 180 Tablet 04/22/2024 Active Vitamin D3 125 MCG (5000 UT) Oral Capsule take 1 capsule by mouth at bedtime 90 Capsule 04/22/2024 Active metFORMIN HCl 1000 MG Oral Tablet (Glucophage) Take 1 tablet by mouth after supper 90 Tablet 05/04/2024 Active metFORMIN HCl 1000 MG Oral Tablet (Glucophage) Take one tablet by mouth after supper 90 Tablet 06/16/2024 Active Pantoprazole Sodium 20 MG Oral Tablet Delayed Release (Protonix) take 1 tablet by mouth every morning on empty stomach 90 Tablet 06/16/2024 Active Potassium Chloride [place] ER 20 MEQ Oral Tablet Extended Release take 1 tablet by mouth after supper 90 Tablet 06/16/2024 Active Clobetasol Propionate 0.05 % External Cream (Temovate) apply sparingly to affected areas twice a day for two weeks on and two weeks off 135 g 1 07/13/2024 Active Clotrimazole-Betam ethasone 1-0.05 % External Cream (Lotrisone) apply cream to skin of twice a day to affected area two weeks per month 135 g 07/13/2024 Active Gabapentin 300 MG Oral Capsule (Neurontin) take 1 capsule by mouth three times per day 270 Capsule 07/13/2024 Active Insulin Glargine Solostar 100 UNIT/ML Subcutaneous Solution Pen-injector (Lantus SoloStar) Use 6 units subcutaneously in the morning 9 mL 1 07/13/2024 Active Magnesium Oxide 400 MG Oral Tablet take one tablet by mouth three times per day 180 Tablet 1 07/13/2024 Active metFORMIN HCl 1000 MG Oral Tablet (Glucophage) Take one tablet by mouth after supper 90 Tablet 1 07/13/2024 Active Midodrine HCl 5 MG Oral Tablet (Proamatine) take one tablet by mouth three times per day 270 Tablet 07/13/2024 Active Pantoprazole Sodium 20 MG Oral Tablet Delayed Release (Protonix) take 1 tablet by mouth every morning on empty stomach 90 Tablet 07/13/2024 Active documented as of this encounter (statuses as of 07/17/2024) Active Problems Problem Noted Date Diagnosed Date Visual distortions of shape and size 06/19/2023 documented as of this encounter (statuses as of 07/17/2024) Social History Tobacco Use Types Packs/Day Years Used Date Smoking Tobacco: Every Day Cigarettes 0.5 50 Comments:About 2 years ago c ut back to .5 pack. Has smoked as much as 1.5 packs. Average usage 1 pack. Alcohol Use Standard Drinks/Week Comments Not Currently 0 (1 standard drink = 0.6 oz pur e alcohol) occasionally Utilities Answer Date Recorded Do you have trouble paying y our heating, water, or electric bill? (Adult - for ages 18 years and over) Not on file 03/31/2024 Is your family able to pay t he heat, water, or electric bill? (Household - for ages 0-17 years) Not on file 03/31/2024 Does your family have access to good internet? (Household - for ages 0-17 years) Not on file 03/31/2024 Social Connections Answer Date Recorded How often do you feel lonely or isolated from those around you? (Adult - for ages 18 years and over) Not on file 03/31/2024 Sex and Gender Information Value Date Recorded Sex Assigned at Not on file Gender Identity Not on file Sexual Orientation Not on file Job Start Date Occupation Industry Not on file Not on file Not on file documented as of this encounter Miscellaneous Notes * Telephone Encounter - Almaz Marin, [facility] - 07/17/2024 2:04 PM EDT [facility] Non-Clinical [place] [facility] THIS NOTE SERVES FOR TRIAGING PURPOSES ONLY AND IS NOT A PATIENT CONTACT. PATIENT MAY BE CONTACTED FOLLOWING MY ASSESSMENT. Patient was identified to be a candidate for the Non-CE telephonic program based on the following criteria: Not High Cost / No a1c Result / PDC >= 80% Patient managed by [facility] provider? No; Is Pertinent Diabetes Info in Care Everywhere? Yes Last A1C: ? (Result Date: ?) Diabetes Diagnosis: Type 2 After chart review the following opportunities were identified: Obtain Updated A1c, Therapy Optimization (PRN), and SUPD Consult Action to be taken by senior controls technician: Please contact and warm transfer to [facility] if patient is agreeable Needs Language Line: No Medication Claims Data (To verify during call): Med: METFORMIN HYDROCHLORIDE 1000 Fill date: 05/05/2024 Day Supply: 90 Quantity: 90 || Med: NOVOLOG FLEXPEN RELION 100 Fill date: 03/19/2024 Day Supply: 90 Quantity: 30 || Med: LANTUS SOLOSTAR 100 Fill date: 03/19/2024 Day Supply: 84 Quantity: 9 Almaz Marin [facility] Clinical Pharmacist 07/17/2024, 2:04 PM documented in this encounter Plan of Treatment Health Maintenance Due Date Last Done Comments Pneumococcal Vaccine: 65+ Years (1 of 2 - PCV) 1955 Depression Screening 1961 Hepatitis C Screening 1967 DTap/Tdap Vaccines (1 - Tdap) 01/14/1968 Zoster Vaccines (1 of 2) 1999 COVID-19 Vaccine ( - 2023-2 5 season) 2024 11/03/2021, 03/15/2021, [...] filedocumented as of this encounter Care Teams Sample Color Maker Relationship Specialty Start Date End Date Eve Soni MD [address] [place] [address] [place] [id number] PCP - General 05/31/09 documented as of this encounter"
--- OUTSIDE RECORDS SUMMARY | 2024-10-21 04:54 | External Medical Summary | Summary of Care ---
Author Name Unknown Organization [facility] Address [address] [facility] [place] [address] Phone [phone] Care Team Providers Care Field Property Loss Specialist Name Role Phone Eve Soni MD Primary Care Provider [phone] [phone] Reason for Visit * Reason Onset Date Comments Diabetes Management 07/17/2024 Non-ce DM TRIAGE 07/17/2024 Encounter Details Date Type Department Care Team (Late st Contact Info) Description 07/17/2024 Telephone Centralized Clinical Pharmacy Services, Lukas Pearce [address] [place] [address] [place] [phone] Ccps, Non Ce Diabetes [address] [place] [address] [place] [phone] Diabetes Management (Non-ce DM ); TRIAGE Allergies No known active allergiesdocumented as of this encounter (statuses as of 07/20/2024) Medications Medication Sig Dispensed Refills Start Date [...] as of this encounter (statuses as of 07/20/2024) Active Problems Problem Noted Date Diagnosed Date Visual distortions of shape and size 06/19/2023 documented as of this encounter (statuses as of 07/20/2024) Social History Tobacco Use Types Packs/Day Years [...] Notes * Telephone Encounter - Almaz Marin, [facility] - 07/17/2024 2:04 PM EDT [facility] Non-Clinical [place] Diabetes [facility] THIS NOTE SERVES FOR TRIAGING PURPOSES ONLY AND IS NOT A PATIENT CONTACT. PATIENT MAY BE CONTACTED FOLLOWING MY ASSESSMENT. Patient was identified to be a candidate for the Non-CE telephonic program based on the following criteria: Not High Cost / No a1c Result / PDC >= 80% Patient managed by [facility] provider? No; Is Pertinent Diabetes Info in Care Everywhere? Yes Last A1C: ? (Result Date: ?) Diabetes Diagnosis: Type 2 After chart review the following opportunities were identified: Obtain Updated A1c, Therapy Optimization (PRN), and SUPD Consult Action to be taken by hemodialysis lab technician: Please contact and warm transfer to [facility] if patient is agreeable Needs Language Line: No Medication Claims Data (To verify during call): Med: METFORMIN HYDROCHLORIDE 1000 Fill date: 05/05/2024 Day Supply: 90 Quantity: 90 || Med: NOVOLOG FLEXPEN RELION 100 Fill date: 03/19/2024 Day Supply: 90 Quantity: 30 || Med: LANTUS SOLOSTAR 100 Fill date: 03/19/2024 Day Supply: 84 Quantity: 9 Almaz Marin [facility] Clinical Pharmacist 07/17/2024, 2:04 PM documented in [...] filedocumented as of this encounter Care Teams Field Property Loss Specialist Relationship Specialty Start Date End Date Eve Soni MD [address] [place] [address] [place] [id number] PCP - General 05/31/09 documented as of this encounter"
--- OUTSIDE RECORDS SUMMARY | 2024-10-21 04:54 | External Medical Summary | Summary of Care ---
Author Name Unknown Organization [facility] Address [address] [facility] [place] [address] Phone [phone] Care Team Providers Care Vascular Technologist Sonographer Name Role Phone Eve Soni MD Primary Care Provider [phone] Reason for Visit * Reason Onset Date Comments Diabetes Management 07/17/2024 Non-ce DM TRIAGE 07/17/2024 Encounter Details Date Type Department Care Team (Late st Contact Info) Description 07/17/2024 Telephone Centralized Clinical Pharmacy Services, Lukas Pearce [address] [place] [address] [place] Weaver [phone] Ccps, Non Ce Diabetes [address] [place] [address] [place] Garibay [phone] Diabetes Management (Non-ce DM ); TRIAGE Allergies No known active allergiesdocumented as of this encounter (statuses as of 08/03/2024) Medications Medication Sig Dispensed Refills Start Date [...] morning on an empty stomach 90 Tablet 06/16/2024 Active Potassium [...] as of this encounter (statuses as of 08/03/2024) Active Problems Problem Noted Date Diagnosed Date Visual distortions of shape and size 06/19/2023 documented as of this encounter (statuses as of 08/03/2024) Social History Tobacco Use Types Packs/Day Years [...] Notes * Telephone Encounter - Almaz Marin, [facility] - 07/17/2024 2:04 PM EDT [facility] Non-Clinical [place] [facility] THIS NOTE SERVES FOR TRIAGING PURPOSES ONLY AND IS NOT A PATIENT CONTACT. PATIENT MAY BE CONTACTED FOLLOWING MY ASSESSMENT. Patient was identified to be a candidate for the Non-CE telephonic program based on the following criteria: Not High Cost / No a1c Result / PDC >= 80% Patient managed by [facility] provider? No; Is Pertinent Diabetes Info in Care Everywhere? Yes Last A1C: ? (Result Date: ?) Diabetes Diagnosis: Type 2 After chart review the following opportunities were identified: Obtain Updated A1c, Therapy Optimization (PRN), and SUPD Consult Action to be taken by evidence technician: Please contact and warm transfer to [facility] if patient is agreeable Needs Language Line: No Medication Claims Data (To verify during call): Med: METFORMIN HYDROCHLORIDE 1000 Fill date: 05/05/2024 Day Supply: 90 Quantity: 90 || Med: NOVOLOG FLEXPEN RELION 100 Fill date: 03/19/2024 Day Supply: 90 Quantity: 30 || Med: LANTUS SOLOSTAR 100 Fill date: 03/19/2024 Day Supply: 84 Quantity: 9 Almaz Marin [facility] Clinical Pharmacist 07/17/2024, 2:04 PM documented in this encounter Plan of Treatment Health Maintenance Due Date Last Done Comments Pneumococcal Vaccine: 65+ Years (1 of 2 - PCV) 1955 Depression Screening 1961 Hepatitis C Screening 1967 DTap/Tdap Vaccines (1 - Tdap) 01/14/1968 Zoster Vaccines (1 of 2) 1999 COVID-19 Vaccine (2023-2 5 season) 2024 11/03/2021, 03/15/2021, 02/15/2021 Influenza [...] filedocumented as of this encounter Care Teams Vascular Technologist Sonographer Relationship Specialty Start Date End Date Eve Soni MD [address] [place] [address] [place]DISON [id number] PCP - General 05/31/09 documented as of this encounter"
--- OUTSIDE RECORDS SUMMARY | 2024-10-21 04:54 | External Medical Summary | Summary of Care ---
Author Name Unknown Organization [facility] Address [address] [facility] [place] [address] Phone [phone] Care Team Providers Care Vice President For Philanthropy Name Role Phone Eve Soni MD Primary Care Provider [phone] Encounter Details Date Type Department Care Team (Late st Contact Info) Description 06/25/2024 Population Health External Data Unspecified Department Allergies No known active allergiesdocumented as of this encounter (statuses as of 06/25/2024) Medications Medication Sig Dispensed Refills Start Date [...] mouth after supper 90 Tablet 05/04/2024 Active Midodrine HCl 5 MG Oral Tablet (Proamatine) Take 1 Tablet by mouth 3 times a day. 270 Tablet 05/04/2024 Active Clotrimazole 1 % External Cream (Clotrimazole Anti-Fungal) Apply cream to skin of legs every evening 90 g 1 06/16/2024 Active Gabapentin 300 MG Oral Capsule (Neurontin) take 1 capsule by mouth 3 times per day 270 Capsule 06/16/2024 Active metFORMIN HCl 1000 MG Oral Tablet (Glucophage) Take one tablet by mouth after supper 90 Tablet 06/16/2024 Active Pantoprazole Sodium 20 MG Oral Tablet Delayed Release (Protonix) take 1 tablet by mouth every morning on empty stomach 90 Tablet 06/16/2024 Active Potassium Chloride [place] [facility] 20 MEQ Oral Tablet Extended Release take 1 tablet by mouth after supper 90 Tablet 06/16/2024 Active documented as of this encounter (statuses as of 06/25/2024) Active Problems Problem Noted Date Diagnosed Date Visual distortions of shape and size 06/19/2023 documented as of this encounter (statuses as of 06/25/2024) Social History Tobacco Use Types Packs/Day Years [...] as of this encounter Plan of Treatment Health Maintenance Due Date Last Done Comments Pneumococcal Vaccine: 65+ Years (1 of 2 - PCV) 1955 Depression Screening 1961 Hepatitis C Screening 1967 DTap/Tdap Vaccines (1 - Tdap) 01/14/1968 Zoster Vaccines (1 of 2) 1999 COVID-19 Vaccine (4 - 2022-2 4 season) 2024 11/03/2021, 03/15/2021, 02/15/2021 Influenza Vaccine [...] filedocumented as of this encounter Care Teams Vice President For Philanthropy Relationship Specialty Start Date End Date Eve Soni MD [address] [place] [address] [place]ON [id number] PCP - General 05/31/09 documented as of this encounter
[2024-10-21] MEDS: SODIUM CHLORIDE 0.9% 1,000 ML IV SCH (04:56)
[2024-10-21] MEDS: INSULIN ASPART PER UNIT CHARGE SC SCH ×2 (06:02→17:25)
[2024-10-21] MEDS: PANTOprazole 40 MG TAB PO SCH (06:16)
[2024-10-21] MEDS: GABAPENTIN 300 MG CAP PO SCH (07:23)
[2024-10-21] MEDS: MAGNESIUM OXIDE 400 MG TAB PO SCH (07:23)
[2024-10-21] MEDS: LANTUS PER UNIT CHARGE SQ SCH (07:23)
[2024-10-21] MEDS: CLOBETASOL PROPIONATE 0.05% CREAM 15 GM TUBE TOP SCH (07:27)
[2024-10-21] MEDS: MIDODRINE HCL 2.5 MG TAB PO SCH (07:27)
[2024-10-21 08:03] LABS: Estimated Average Glucose 180 mg/dl; Hemoglobin A1C 7.9 % (4.5-5.6)
[2024-10-21] MEDS: HYDROmorphone INJ 0.5 MG/0.5 ML SYR IV PRN ×2 (08:22→16:36)
--- NOTE | 2024-10-21 08:52 | Hospitalist Progress Note ---
Date of Service October 21, 2024 Assessment & Plan (1) Closed fracture of greater trochanter of left femur: Plan: Adjust pain control, keep immobilized to his comfort level, awaiting input by orthopedics. X-ray did not show any finding however the mildly impacted fracture of left greater trochanter was found on CT. Patient is n.p.o., will see if any intervention is suggested. I noticed that patient was ordered to have an MRI of the hip done. Will follow with the results as well. Echocardiogram was ordered to assist with preoperative assessment. (2) Diabetes mellitus type 2, controlled: Plan: Blood sugars relatively stable, continue with Lantus 3 units daily, and sliding scale coverage, monitor Accu-Cheks and adjust accordingly. Continue with home dose of gabapentin for peripheral neuropathy. He does have chronic hypertension for which he is on midodrine which I think it is due to autonomic neuropathy related to diabetes. Most recent A1c yesterday was 7.9 which is reasonable considering his age. Accu-Cheks are 120-200. (3) Chronic venous stasis dermatitis: Plan: His lower extremity erythema and wrinkling are signs of chronic venous stasis, I do not see any evidence of cellulitis and so I do not see any indication for antibiotics. Plan Continue adjusting pain control, awaiting to be seen by orthopedics for surgical recommendation, follow with the result of MRI of the hip and echocardiogram. Admission and Anticipated Discharge Date Admission Date: October 21, 2024 Subjective Patient is a very pleasant 74-year-old gentleman with history of diabetes mellitus type 2, hypotension on midodrine who after a fall sustained a left greater trochanteric fracture, patient lives alone and was brought to the hospital, radiographic evaluation was reviewed, patient is awaiting to be seen by orthopedics. He was seen and examined, clinically stable, we discussed his pain control options. Physical Exam Physical Exam: VITALS: Reviewed. WEIGHT/BMI reviewed. GEN: Underweight/frail looking LUNGS: CTAB, no w/r/c. ABD: Soft, NT/ND, NBS, no masses or organomegaly. : N/A SKIN: Warm, well perfused. No skin rashes or abnormal lesions. MSK: No deformities, Normal gait. EXT: No swelling, there is an element of bilateral lower extremity erythema with skin wrinkling which I think it is because of previous edema which has now resolved, it looks like he has had chronic venous stasis with some element of dermatitis Results & Data Results & Data Vital Signs (Past 12 Hours) Vital Signs Temp Pulse Pulse Pulse Resp BP BP 10/21/24 07:57 36.7 C 79 14 119/73 10/21/24 04:01 10/21/24 02:46 36.5 C 78 18 137/66 10/21/24 02:35 36.5 C 76 17 123/77 10/21/24 00:00 81 16 128/80 10/20/24 23:30 76 18 118/74 10/20/24 23:03 79 19 116/70 10/20/24 22:37 78 10/20/24 21:41 81 18 115/66 Pulse Ox O2 Del Method O2 Flow Rate 10/21/24 07:57 96 Nasal Cannula 2 10/21/24 04:01 Nasal Cannula 2 10/21/24 02:46 96 Nasal Cannula 2 10/21/24 02:35 92 10/21/24 00:00 91 10/20/24 23:30 93 10/20/24 23:03 93 10/20/24 22:37 10/20/24 21:41 94 Nasal Cannula 2 Laboratory Results Laboratory Results - last 24 hr 10/20/24 10/20/24 10/20/24 17:00 17:10 22:54 WBC 9.98 RBC 4.38 L Hgb 13.9 L POC Hgb 14.3 Hct 40.4 L POC Hct 42 MCV 92.2 MCH 31.7 MCHC 34.4 RDW Std Deviation 45.9 RDW Coeff of Cassia 13.5 Plt Count 219 MPV 9.0 L Immature Gran % (Auto) 0.8 Neut % (Auto) 69.0 Lymph % (Auto) 20.7 Knox % (Auto) 7.2 Eos % (Auto) 1.7 Baso % (Auto) 0.6 Neut # (Auto) 6.88 H Lymph # (Auto) 2.07 Knox # (Auto) 0.72 H Eos # (Auto) 0.17 Baso # (Auto) 0.06 Immature Gran # (Auto) 0.08 PT 11.9 INR 1.1 POC Sodium 139 Sodium 139 POC Potassium 4.9 Potassium 5.0 POC Chloride 105 Chloride 105 Carbon Dioxide 27 POC Total CO2 24 Anion Gap 7 POC Anion Gap 16.0 POC BUN 18 BUN 18 Creatinine 1.32 POC Creatinine 1.3 Est Cr Clr Drug Dosing 42.1 eGFR 56.25 BUN/Creatinine Ratio 13.6 Glucose 254 H POC Glucose POC Glucose (other) 243 H Estimat Average Glucose 180 Hemoglobin A1c 7.9 H Calcium 8.6 POC Ioniz Calcium Paulino 1.09 L Magnesium 1.7 Total Bilirubin 0.9 AST 35 ALT 14 Alkaline Phosphatase 306 H Total Creatine Kinase 976 H Troponin I High Sens 12.4 Total Protein 6.6 Albumin 3.4 Globulin 3.2 Albumin/Globulin Ratio 1.1 Lipase < 3 L TSH 2.823 Urine Color Yellow Urine Appearance Clear Urine pH 5.5 Ur Specific Naylor 1.018 Urine Protein Trace H Urine Glucose (UA) Negative Urine Ketones Negative Urine Blood Trace H Urine Nitrite Negative Urine Bilirubin Negative Urine Urobilinogen Negative Ur Leukocyte Esterase 3+ H Urine WBC (Auto) >50 H Urine RBC (Auto) 0-2 U Hyaline Cast (Auto) 0-2 U Epithel Cells (Auto) 0-2 Urine Bacteria (Auto) None Seen 10/21/24 10/21/24 10/21/24 03:03 05:47 08:32 WBC RBC Hgb POC Hgb Hct POC Hct MCV MCH MCHC RDW Std Deviation RDW Coeff of Cassia Plt Count MPV Immature Gran % (Auto) Neut % (Auto) Lymph % (Auto) Knox % (Auto) Eos % (Auto) Baso % (Auto) Neut # (Auto) Lymph # (Auto) Knox # (Auto) Eos # (Auto) Baso # (Auto) Immature Gran # (Auto) PT INR POC Sodium Sodium POC Potassium Potassium POC Chloride Chloride Carbon Dioxide POC Total CO2 Anion Gap POC Anion Gap POC BUN BUN Creatinine POC Creatinine Est Cr Clr Drug Dosing eGFR BUN/Creatinine Ratio Glucose POC Glucose 117 H 119 H POC Glucose (other) Estimat Average Glucose Hemoglobin A1c Calcium POC Ioniz Calcium Paulino Magnesium Total Bilirubin AST ALT Alkaline Phosphatase Total Creatine Kinase Pending Troponin I High Sens Total Protein Albumin Globulin Albumin/Globulin Ratio Lipase TSH Urine Color Urine Appearance Urine pH Ur Specific Naylor Urine Protein Urine Glucose (UA) Urine Ketones Urine Blood Urine Nitrite Urine Bilirubin Urine Urobilinogen Ur Leukocyte Esterase Urine WBC (Auto) Urine RBC (Auto) U Hyaline Cast (Auto) U Epithel Cells (Auto) Urine Bacteria (Auto) Diagnostic Findings Abdomen/Pelvis CT 10/20/24 16:30 INDICATION: Pain and injury. COMPARISON: Report from CT chest, abdomen and pelvis from 06/05/2024 - images not available for comparison at this time. TECHNIQUE: Axial CT images of the chest, abdomen and pelvis were obtained following IV contrast administration. Coronal and sagittal reformations were reviewed. FINDINGS: Chest: The thoracic aorta appears normal in caliber. The heart is mildly enlarged. No pericardial or pleural effusion. No pneumothorax. No pathologically enlarged mediastinal or hilar lymph nodes. No pulmonary consolidation. Moderate to severe emphysema. No acute osseous abnormality evident. Degenerative changes in the spine. T12 compression fracture as described on prior CT. chronic appearing rib deformities. Bilateral gynecomastia noted. Abdomen and pelvis: The liver, gallbladder, spleen and adrenal glands appear unremarkable. No hydronephrosis. Left renal cyst measuring 5.8 cm. Calcifications in the pancreas likely related to degree of chronic pancreatitis. Negative for abdominal aortic aneurysm or dissection. No evidence of bowel obstruction/colitis/appendicitis. Mild amount of retained colonic stool. No free air. No drainable fluid collection. Urinary bladder distention. Degenerative changes in the spine. Mildly impacted fracture of the left greater trochanter. IMPRESSION: Mildly impacted fracture of the left greater trochanter. Otherwise none acute process in the chest, abdomen or pelvis. Electronically signed by Callum Kline 10-20-2024 6:[address] 10/20/24 16:30 INDICATION: Pain and injury. COMPARISON: CT from 06/05/2024 TECHNIQUE: Axial CT images of the cervical spine were obtained without IV contrast administration. Coronal and sagittal reformations were reviewed. FINDINGS: Cervical vertebral body heights and alignment are maintained. No acute fracture or traumatic subluxation. Mild multilevel disc space narrowing and facet arthropathy. Neck soft tissues and lung apices appear grossly unremarkable. IMPRESSION: No acute fracture. Electronically signed by Callum Kline 10-20-2024 6:[address] 10/20/24 16:30 INDICATION: Pain and injury. COMPARISON: Report from CT chest, abdomen and pelvis from 06/05/2024 - images not available for comparison at this time. TECHNIQUE: Axial CT images of the chest, abdomen and pelvis were obtained following IV contrast administration. Coronal and sagittal reformations were reviewed. FINDINGS: Chest: The thoracic aorta appears normal in caliber. The heart is mildly enlarged. No pericardial or pleural effusion. No pneumothorax. No pathologically enlarged mediastinal or hilar lymph nodes. No pulmonary consolidation. Moderate to severe emphysema. No acute osseous abnormality evident. Degenerative changes in the spine. T12 compression fracture as described on prior CT. chronic appearing rib deformities. Bilateral gynecomastia noted. Abdomen and pelvis: The liver, gallbladder, spleen and adrenal glands appear unremarkable. No hydronephrosis. Left renal cyst measuring 5.8 cm. Calcifications in the pancreas likely related to degree of chronic pancreatitis. Negative for abdominal aortic aneurysm or dissection. No evidence of bowel obstruction/colitis/appendicitis. Mild amount of retained colonic stool. No free air. No drainable fluid collection. Urinary bladder distention. Degenerative changes in the spine. Mildly impacted fracture of the left greater trochanter. IMPRESSION: Mildly impacted fracture of the left greater trochanter. Otherwise none acute process in the chest, abdomen or pelvis. Electronically signed by Callum Kline 10-20-2024 6:[address] 10/20/24 16:30 INDICATION: Pain and injury. COMPARISON: CT brain from 02/21/2024. TECHNIQUE: Axial CT images of the head were obtained without IV contrast. Coronal and sagittal reformations were reviewed. FINDINGS: Bravo-white differentiation is relatively preserved. No mass, mass effect or midline shift. Chronic ischemic white matter changes. Mild cortical atrophy. No evidence of acute large territorial infarction or acute intracranial hemorrhage. Ventricles appear normal in size. Basal cisterns are patent. No depressed calvarial fracture. IMPRESSION: No acute intracranial process. Electronically signed by Callum Kline 10-20-2024 5:42 PM Hip/Pelvis X-Ray 10/20/24 16:30 Exam(s): XR HIP + PELVIS, 1 view EXAM: XR Left Hip With Pelvis When Performed, 2 Views CLINICAL HISTORY: Reason for exam: pain fall. TECHNIQUE: Frontal view of the left hip with pelvis when performed. COMPARISON: X-ray pelvis: 06/05/2024 FINDINGS: Bones/joints: No acute fracture. No dislocation. Shortened left femoral neck seen similar to prior comparison. Soft tissues: Unremarkable. Other findings: Large amount of retained stool in the rectosigmoid. Calcified phleboliths overlies the lower pelvis.. IMPRESSION: No radiographic evidence of acute fracture or dislocation. . Electronically signed by: Harini Lechuga MD, SANTIAGO 10/20/24 20:04 PM Medications Administered Current Inpatient Medications Acetaminophen (Acetaminophen 325 Mg Tab) 650 mg PO Q6H PRN PRN Reason: pain/fever Stop: 11/20/24 02:35 Clobetasol Propionate (Clobetasol Propionate 0.05% Cream 15 Gm Tube) 1 appln TOP BID [facility] Stop: 11/20/24 08:59 Last Admin: 10/21/24 07:27 Dose: 1 appln Dextrose (Dextrose 50% 50 Ml Syringe) 25 - 50 ml IV UD PRN; Protocol PRN Reason: Hypoglycemia Protocol Stop: 11/20/24 02:35 Doxycycline Hyclate (Doxycycline Hyclate 100 Mg Cap) 100 mg PO BID [facility] Stop: 10/28/24 08:59 Gabapentin (Gabapentin 300 Mg Cap) 300 mg PO TID [facility] Stop: 11/20/24 08:59 Last Admin: 10/21/24 07:23 Dose: 300 mg Glucagon (Glucagon For Inj 1 Mg Vial) 1 mg SQ UD PRN; Protocol PRN Reason: Hypoglycemia Protocol Stop: 11/20/24 02:35 Glucose (Glucose 40% Gel 15 Gm Tube) 15 - 30 gm PO UD PRN; Protocol PRN Reason: Hypoglycemia Protocol Stop: 11/20/24 02:35 Glucose (Glucose 10 Tab/Tube) 4 - 8 tab PO UD PRN; Protocol PRN Reason: Hypoglycemia Protocol Stop: 11/20/24 02:35 Hydromorphone HCl (Hydromorphone Inj 0.5 Mg/0.5 Ml Syr) 0.5 mg IV Q6H PRN PRN Reason: Severe Pain (Scale 7, 8, 9,10) Stop: 11/04/24 02:35 Last Admin: 10/21/24 08:22 Dose: 0.5 mg Hydromorphone HCl (Hydromorphone Inj 0.5 Mg/0.5 Ml Syr) 0.25 mg IV Q6H PRN PRN Reason: Moderate Pain (Scale 4, 5, 6) Stop: 11/04/24 02:35 Sodium Chloride (Nss) 1,000 mls @ 80 mls/hr IV .[id number] [facility] Stop: 10/22/24 03:35 Last Admin: 10/21/24 04:56 Dose: 80 mls/hr Piperacillin Sod/Tazobactam Sod (Zosyn) 4.5 gm in 100 mls @ 25 mls/hr IV Q8H [facility]; Protocol Stop: 10/28/24 08:44 Insulin Aspart (Insulin Aspart Per Unit Charge) 0 units SC Q6 [facility] Stop: 11/20/24 05:59 Last Admin: 10/21/24 06:02 Dose: Not Given Insulin Glargine (Lantus Per Unit Charge) 3 units SQ DAILY [facility] Stop: 11/20/24 08:59 Last Admin: 10/21/24 07:23 Dose: Not Given Levalbuterol HCl (Levalbuterol 1.25 Mg/3 Ml Neb) 1.25 mg NEB Q4H PRN PRN Reason: Shortness Of Breath Or Wheezing Stop: 11/20/24 02:35 Magnesium Oxide (Magnesium Oxide 400 Mg Tab) 400 mg PO TID [facility] Stop: 11/20/24 08:59 Last Admin: 10/21/24 07:23 Dose: 400 mg Midodrine (Midodrine Hcl 2.5 Mg Tab) 5 mg PO TIDM [facility]ABE[facility] Stop: 11/20/24 07:59 Last Admin: 10/21/24 07:27 Dose: 5 mg Miscellaneous (Carbohydrates For Hypoglycemia ) 15 - 30 gm PO UD PRN PRN Reason: Hypoglycemia Protocol Stop: 11/20/24 02:35 Pantoprazole Sodium (Pantoprazole 40 Mg Tab) 40 mg PO DAILYBB [facility]ABE[facility] Stop: 11/20/24 06:29 Last Admin: 10/21/24 06:16 Dose: 40 mg Polyethylene Glycol (Polyethylene (Miralax) 17 Gm Pack) 17 gm PO DAILY PRN PRN Reason: Constipation Stop: 11/20/24 02:35 Potassium Chloride (Potassium Chloride Crtab 20 Meq Tabcr) 20 meq PO Q24H [facility] Stop: 11/20/24 16:59 Vitamin D (Cholecalciferol 125 Mcg (5,000 Units) Tab) 125 mcg PO HS [facility]ABE[facility] Stop: 11/20/24 20:59 (1) Closed fracture of greater trochanter of left femur Encounter type: initial encounter Fracture alignment: nondisplaced Qualified Code(s): S72.115A - Nondisplaced fracture of greater trochanter of left femur, initial encounter for closed fracture (2) Diabetes mellitus type 2, controlled Diabetes mellitus correction insulin use: with correction use Diabetes mellitus complication status: with neurologic complications Diabetes mellitus complication detail: with polyneuropathy Qualified Code(s): E11.42 - Type 2 diabetes mellitus with diabetic polyneuropathy; 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
[2024-10-21] MEDS ORDERED: 4.5GM X1 IV ONE (09:00)
[2024-10-21] MEDS ORDERED: DOXYCYCLINE HYCLATE 100 MG CAP PO SCH (09:00)
--- NOTE | 2024-10-21 10:26 | XRay Report ---
XR foot RT min 3V routine CLINICAL HISTORY: right great toe wound plantar aspect COMPARISON: None FINDINGS: A wound of the plantar aspect of the right great toe is noted. There is no bony erosion wi thin the right great toe. Right great toe soft tissue swelling is present. There is also dorsal soft tissue swelling of the right foot. No acute fractures are identified. Tarsometatarsal joints are inta ct. There is extensive vascular calcification. Mild degenerative changes are noted within multiple ar ticulations of the right foot. IMPRESSION: 1. Right great toe wound. No radiographic evidence for acute osteomyelitis. No radiopaque foreign bod ies. 2. Right great toe soft tissue swelling. ACT 112: Negative or not required by law. Electronically signed by: Canelo Gonzales M.D. 10/21/2024 10:23 AM
--- NOTE | 2024-10-21 10:52 | Anesthesiology Consultation ---
Date of Service October 21, 2024 Assessment & Plan (1) Encounter for pre-operative examination: Chart Review Chart Review: Acceptable Risk for Surgery and Patient NOT seen in Pre Admission Testing Consults Requested none History Surgery Operation Date: 10/21/24 07:50 Proposed Procedures p Left Troch Nail - Miguel Tanner DO Height/Weight Height: 5 ft 5 in Weight: 62 kg Allergies Allergy/AdvReac Type Severity Reaction Status Date / Time No Known Allergies Allergy Verified 02/28/24 17:00 Medications Home Medications Medication Instructions Recorded Confirmed Last Taken magnesium oxide 400 mg (241.3 mg 400 mg PO TID 04/05/23 10/20/24 02/21/24 magnesium) tablet cholecalciferol (vitamin D3) 125 125 mcg PO HS 06/18/23 10/20/24 02/20/24 mcg (5,000 unit) tablet (Vitamin D3) metformin 1,000 mg tablet 1,000 mg PO .DAILY AFTER SUPPER 06/18/23 10/20/24 02/20/24 potassium chloride 20 mEq 20 meq PO .DAILY AFTER SUPPER 11/09/23 10/20/24 02/21/24 tablet,extended release(part/cryst) insulin aspart U-100 100 unit/mL 1 sliding scale dose subcut AC 02/21/24 10/20/24 02/21/24 (3 mL) subcutaneous pen (Novolog FlexPen U-100 Insulin aspart) insulin glargine 100 unit/mL (3 6 unit subcut QAM 02/21/24 10/20/24 02/21/24 mL) subcutaneous pen (Lantus Solostar U-100 Insulin) pantoprazole 20 mg tablet,delayed 20 mg PO DAILYBB 02/21/24 10/20/24 02/21/24 release midodrine 5 mg tablet 5 mg PO TID #90 tabs 03/06/24 10/20/24 Unknown clobetasol 0.05 % topical cream 1 applic topical UD 10/20/24 10/20/24 Unknown clotrimazole-betamethasone 1 1 applic topical BID 10/20/24 10/20/24 Unknown %-0.05 % topical cream gabapentin 300 mg capsule 300 mg PO TID 10/20/24 10/20/24 Unknown Active Medications Generic Name Dose Route Start Last Admin Trade Name Freq PRN Reason Stop Dose Admin Clobetasol Propionate 1 appln 10/21/24 09:00 10/21/24 07:27 Clobetasol Propionate 0.05% Cream 15 Gm Tube TOP 11/20/24 08:59 1 appln BID ISABELL Administration Gabapentin 300 mg 10/21/24 09:00 10/21/24 07:23 Gabapentin 300 Mg Cap PO 11/20/24 08:59 300 mg TID ISABELL Administration Hydromorphone HCl 0.5 mg 10/21/24 02:36 10/21/24 08:22 Hydromorphone Inj 0.5 Mg/0.5 Ml Syr IV 11/04/24 02:35 0.5 mg Q6H PRN Administration Severe Pain (Scale 7, 8, 9,10) Sodium Chloride 1,000 mls @ 80 mls/hr 10/21/24 02:36 10/21/24 04:56 Nss IV 10/22/24 03:35 80 mls/hr .[id number] ISABELL Administration Insulin Aspart 0 units 10/21/24 06:00 10/21/24 06:02 Insulin Aspart Per Unit Charge SC 11/20/24 05:59 Not Given Q6 ISABELL Insulin Glargine 3 units 10/21/24 09:00 10/21/24 07:23 Lantus Per Unit Charge SQ 11/20/24 08:59 Not Given DAILY ISABELL Magnesium Oxide 400 mg 10/21/24 09:00 10/21/24 07:23 Magnesium Oxide 400 Mg Tab PO 11/20/24 08:59 400 mg TID ISABELL Administration Midodrine 5 mg 10/21/24 08:00 10/21/24 07:27 Midodrine Hcl 2.5 Mg Tab PO 11/20/24 07:59 5 mg TIDM ISABELL Administration Pantoprazole Sodium 40 mg 10/21/24 06:30 10/21/24 06:16 Pantoprazole 40 Mg Tab PO 11/20/24 06:29 40 mg DAILYBB ISABELL Administration NPO Date Last Intake of Fluids: 10/21/24 Time Last Intake of Fluids: 07:20 Last Intake of Fluids Comment: sips with morning medications Date Last Intake of Solids: 10/19/24 Time Last Intake of Solids: 18:00 Past Medical History Medical History (Updated 10/21/24 @ 10:45 by Mikhail Rodriguez MD) Hypomagnesemia 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 Diabetes mellitus, type 2 Cataract upcoming surgery for correction Low blood pressure On Midodrine Chronic obstructive pulmonary disease Mild Lower extremity edema Elevated alk phosphate 306 chronically elevated in 200's Rhabdomyolysis cpk 976 getting fluids follow repeat levels Right great toe wound on posterior aspect with some drainage empiric zosyn and doxy. Patient with hx/o CARLO in February 2024 and LE cellulitis. Chronic venous stasis dermatitis. Past Family History Family History Other No family history of adverse response to anesthesia Past Surgical History Surgical History History of esophagogastroduodenoscopy (EGD) History of colonoscopy History of tooth extraction Social History Smoking Status: Current every day smoker tobacco type: cigarettes Smoking cigarettes per day: 20 Do You Dip or Chew Tobacco: No Hx Alcohol Use: No Hx Substance Use: No substance use type: does not use Physical Exam Vital Signs Last Vital Signs Temp 36.7 C 10/21/24 07:57 Pulse 79 10/21/24 07:57 Resp 14 10/21/24 07:57 BP 119/73 10/21/24 07:57 Pulse Ox 96 10/21/24 07:57 O2 Del Method Nasal Cannula 10/21/24 07:57 O2 Flow Rate 2 10/21/24 07:57 Testing Laboratory Results 10/20/24 17:00 10/20/24 17:00 PT 11.9 Seconds (9.0-12.0) 10/20/24 17:00 INR 1.1 (0.9-1.1) 10/20/24 17:00 Hemoglobin A1c 7.9 % (4.5-5.6) H 10/20/24 17:00 Urine Color Yellow 10/20/24 22:54 Urine Appearance Clear (Clear) 10/20/24 22:54 Urine pH 5.5 (4.5-7.5) 10/20/24 22:54 Ur Specific [place] 1.018 (1.000-1.030) 10/20/24 22:54 Urine Protein Trace (Negative) H 10/20/24 22:54 Urine Glucose (UA) Negative (Negative) 10/20/24 22:54 Urine Ketones Negative (Negative) 10/20/24 22:54 Urine Nitrite Negative (Negative) 10/20/24 22:54 Ur Leukocyte Esterase 3+ (Negative) H 10/20/24 22:54 Urine WBC (Auto) >50 /hpf (0-5) H 10/20/24 22:54 Urine RBC (Auto) 0-2 /hpf (0-2) 10/20/24 22:54 U Hyaline Cast (Auto) 0-2 /lpf (0-2) 10/20/24 22:54 U Epithel Cells (Auto) 0-2 /hpf (0-2) 10/20/24 22:54 Urine Bacteria (Auto) None Seen (None Seen) 10/20/24 22:54 10/21/24 10/21/24 05:47 03:03 POC Glucose 119 H 117 H Electrocardiogram Date: 10/20/24 HR 91. NSR. LAFB. Abnormal ECG. Other Testing Head CT: IMPRESSION: No acute intracranial process. Chest CT: IMPRESSION: Mildly impacted fracture of the left greater trochanter. Otherwise none acute process in the chest, abdomen or pelvis. Electronically signed by Callum Kline 10-20-2024 6:11 PM
--- NOTE | 2024-10-21 11:28 | Magnetic Resonance Report ---
MR hip LT wo con CLINICAL HISTORY: left hip fracture TECHNIQUE: Multisequence, multiplanar images of the left hip were obtained without the administration of intravenous gadolinium. Comparison: Comparison is made to left hip radiograph 10/20/[address] abdomen pelvis 07/20/2025 FINDINGS: The visualized pelvic bones demonstrate normal marrow signal without focal abnormality. Edema is seen in the femoral neck compatible with an impacted fracture of the greater trochanter. There are no findings to suggest iliopsoas or trochanteric bursitis and the capsular structures are f ree of tear. Edema is seen about the quadratus femoris and gluteus tendons. There is likely discontin uity of the left piriformis muscle at the musculotendinous junction. No joint effusion or abnormal fluid collections are present such as a paralabral cyst. The articular cartilage is intact with no focal osteochondral defects or intra articular bodies. The visualized portions of the intraperitoneal structures and pelvic sidewalls are normal. IMPRESSION: Findings compatible with an avulsion type fracture of the greater tear of the piriformis muscles and possibly partial-thickness tears of the gluteus medius or quadratus femoris. ACT 112: Negative or not required by law. Electronically signed by: Jamar Lopez M.D. 10/21/2024 11:27 AM
--- NOTE | 2024-10-21 11:36 | Orthopedic Consultation ---
Date of Consultation October 21, 2024 Assessment & Plan (1) Intertrochanteric fracture of left hip: (2) Diabetes mellitus type 2, controlled: (3) Fall from standing: (4) GERD (gastroesophageal reflux disease): (5) CARLO (acute kidney injury): (6) GERD (gastroesophageal reflux disease): Plan This is a 74-year-old gentleman who presents today for evaluation of his left hip after a fall that occurred last evening. In his initial evaluation in the emergency department, the patient was noted to have sustained a greater trochanteric hip fracture. I did review his x-rays and CT scan was concern for intertrochanteric extension as such I ordered an MRI to confirm this. Patient had his MRI done this morning and his MRI does demonstrate a complete intertrochanteric hip fracture. I do long discussion with the patient and his son regarding the nature of this diagnosis. We discussed in great detail the pathoanatomy, pathophysiology, treatment options. With regards to intertrochanteric hip fractures, even ones that are nondisplaced, our recommendation is generally for operative intervention to confirm bony stability, prevent future displacement, allow sooner weightbearing, and provide pain control. I expressed to the patient and his son that there are risks associated with surgery that include but are not limited to loss of life/limb, DVT, incomplete relief of pain, need for additional surgery, hardware irritation, hardware complication, hardware failure, iatrogenic injury to bone/nerve/tendon/vessel/cartilage, deep infection. I expressed that the alternative to do operative care would be for nonoperative care. This would involve 6 weeks of limited weightbearing and I expressed that there are risks associated with this as well. The risks of limited weightbearing for 6 weeks would be the complications of immobilization such as decubitus ulcers, pneumonia, pain, decreased functional status. I also explained to the patient and his father that often times hip fractures are a "harbinger of worsening state,". They understand that often times hip fra ctures confer with them a decrease in functional status even with operative intervention. Considering the patient is currently a household ambulator and uses a walker when he walks in the community, I suspect that he will need a walker in his home and he will likely require wheelchair when he is out in the community. The patient and his son both expressed understanding to these. After a thorough discussion of all the above, through shared decision making model, the patient has elected to proceed with operative management. Patient is a current every day smoker and I expressed to him the importance of him quitting for his overall health but also for the health of his surgical site and bony healing. He notes that he does not think he will quit but he will keep this in mind. Because of his smoking status he is at a higher risk for perioperative complication. The patient expressed understanding to this. He has been n.p.o. since midnight. The operating room is available this after noon and we will proceed to the OR pending OR availability. Vitamin D labs have been ordered. The patient will require outpatient follow- up with the osteoporosis clinic. We will ensure that this occurs. History of Present Illness Reason for Consultation: Fall, left hip pain Attending Physician: Juliet Cedillo MD History of Present Illness This is a 74-year-old gentleman who presented to [facility] last evening after a fall that he sustained in his home. He notes that he was going to the bathroom and standing at his sink when he lost his balance and fell. He felt immediate pain in his left hip. He was unable to ambulate after the fall. He is a household ambulator without assistive devices, but does use a walker in the community. Past medical history significant for diabetes, hypot ension on midodrine, GERD, presents with fall and found to have a left greater trochanter fracture. Patient lives alone. He walks without support at home. He ambulates with a walker in the community. Currently have pain in the left hip region. Denies any headache. No dizziness. No runny nose or sore throat. Has some cough. Smokes about 1 pack a day. Denies any chest pain or shortness of breath. Denies nausea. No abdominal pain. Past medical history. As mentioned above. Past surgical history. EGD. Colonoscopy. Tooth extraction. Social history. Smokes 1 pack a day. Denies alcohol use. No drug use. Allergies Allergy/AdvReac Type Severity Reaction Status Date / Time No Known Allergies Allergy Verified 02/28/24 17:00 Home Medications Medication Instructions Recorded Confirmed Type magnesium oxide 400 mg (241.3 mg 400 mg PO TID 04/05/23 10/20/24 History magnesium) tablet cholecalciferol (vitamin D3) 125 125 mcg PO HS 06/18/23 10/20/24 History mcg (5,000 unit) tablet (Vitamin D3) metformin 1,000 mg tablet 1,000 mg PO .DAILY AFTER SUPPER 06/18/23 10/20/24 History potassium chloride 20 mEq 20 meq PO .DAILY AFTER SUPPER 11/09/23 10/20/24 History tablet,extended release(part/cryst) insulin aspart U-100 100 unit/mL 1 sliding scale dose subcut AC 02/21/24 10/20/24 History (3 mL) subcutaneous pen (Novolog FlexPen U-100 Insulin aspart) insulin glargine 100 unit/mL (3 6 unit subcut QAM 02/21/24 10/20/24 History mL) subcutaneous pen (Lantus Solostar U-100 Insulin) pantoprazole 20 mg tablet,delayed 20 mg PO DAILYBB 02/21/24 10/20/24 History release midodrine 5 mg tablet 5 mg PO TID #90 tabs 03/06/24 10/20/24 Rx clobetasol 0.05 % topical cream 1 applic topical UD 10/20/24 10/20/24 History clotrimazole-betamethasone 1 1 applic topical BID 10/20/24 10/20/24 History %-0.05 % topical cream gabapentin 300 mg capsule 300 mg PO TID 10/20/24 10/20/24 History Patient History Medical History (Updated 10/21/24 @ 11:48 by Miguel Tanner DO) Hypomagnesemia 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 Diabetes mellitus, type 2 Cataract upcoming surgery for correction Low blood pressure On Midodrine Chronic obstructive pulmonary disease Surgical History History of esophagogastroduodenoscopy (EGD) History of colonoscopy History of tooth extraction Family History Other No family history of adverse response to anesthesia Social History Smoking Status: Current every day smoker Tobacco Type: Cigarettes Cigarettes Per Day: 20; Second Hand Exposure: No; Do You Dip or Chew Tobacco: No; Tobacco Cessation Education Requested by Patient: No Hx Alcohol Use: No Hx Substance Use: No Preferred Language: Vietnamese Communication Ability: Effective County Court Judge Required: No Beliefs That Will Affect Care: None Current Living Situation: Alone Current Living Situation Comment: son lives down the road Other Information That Helps Us Care for You: No Feels Safe at Home: Yes Safety Concerns: Feels Safe At This Time Assistive Devices: Cane, Denture - Upper, Denture - Lower, Glasses, Walker and Wheelchair Review of Systems Review of Systems: All systems reviewed & are unremarkable except as noted in HPI & below Physical Exam Physical Exam: On physical examination, the patient has no open wounds about his left hip. He has pain with logroll and pain with heel strike. He has mild tenderness palpation about the proximal femur. His sensations intact to light touch in his left lower extremity. He demonstrates active EHL/FHL/GSC/TA function. Results & Data Vital Signs (Past 12 Hours) Vital Signs Temp Pulse Pulse Resp BP BP Pulse Ox 10/21/24 07:57 36.7 C 79 14 119/73 96 10/21/24 07:15 10/21/24 04:01 10/21/24 02:46 36.5 C 78 18 137/66 96 10/21/24 02:35 36.5 C 76 17 123/77 92 10/21/24 00:00 81 16 128/80 91 O2 Del Method O2 Flow Rate 10/21/24 07:57 Nasal Cannula 2 10/21/24 07:15 Nasal Cannula 2 10/21/24 04:01 Nasal Cannula 2 10/21/24 02:46 Nasal Cannula 2 10/21/24 02:35 10/21/24 00:00 Diagnostic Findings X-rays left hip/pelvis, CT pelvis, and MRI left hip were personally interpreted and reviewed. The x-rays and CT scan demonstrate a greater trochanteric fracture without confirmed intertrochanteric extension. MRI was personally interpreted and reviewed and does demonstrate complete intertrochanteric hip fracture. 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
[2024-10-21] MEDS ORDERED: ONDANSETRON INJ 2 MG/ML 2 ML VIAL ONE ×2 (11:52→13:19)
[2024-10-21] MEDS ORDERED: PROPOFOL IV EMULSION 10 MG/ML 20 ML VIAL IV ONE (11:52)
[2024-10-21] MEDS ORDERED: LIDOCAINE 2% 2 ML VIAL/AMP(20MG/ML) INFIL ONE (11:52)
[2024-10-21] MEDS ORDERED: fentaNYL citrate PF 100 MCG/2 ML VIAL ONE ×2 (11:52→13:37)
[2024-10-21] MEDS ORDERED: DEXAMETHASONE SOD INJ 4 MG/ML VIAL ONE (11:52)
[2024-10-21] MEDS ORDERED: MIDAZOLAM HCL 1 MG/ML 2ML VIAL ONE (11:52)
[2024-10-21] MEDS ORDERED: ROCURONIUM BROMIDE 10 MG/ML 5 ML VIAL IV ONE (11:54)
--- NOTE | 2024-10-21 12:16 | History & Physical Bridge Note ---
Date of Service October 21, 2024 History & Physical Bridge Note I have examined the patient, reviewed the History & Physical and in the interval since the performance of the History & Physical I have noted the following changes of clinical significance: This is a 74-year-old gentleman who presents today for evaluation of his left hip after a fall that occurred last evening. In his initial evaluation in the emergency department, the patient was noted to have sustained a greater trochanteric hip fracture. I did review his x-rays and CT scan was concern for intertrochanteric extension as such I ordered an MRI to confirm this. Patient had his MRI done this morning and his MRI does demonstrate a complete intertrochanteric hip fracture. I do long discussion with the patient and his son regarding the nature of this diagnosis. We discussed in great detail the pathoanatomy, pathophysiology, treatment options. With regards to intertrochanteric hip fractures, even ones that are nondisplaced, our recommendation is generally for operative intervention to confirm bony stability, prevent future displacement, allow sooner weightbearing, and provide pain control. I expressed to the patient and his son that there are risks associated with surgery that include but are not limited to loss of life/limb, DVT, incomplete relief of pain, need for additional surgery, hardware irritation, hardware complication, hardware failure, iatrogenic injury to bone/nerve/tendon/vessel/cartilage, deep infection. I expressed that the alternative to do operative care would be for nonoperative care. This would involve 6 weeks of limited weightbearing and I expressed that there are risks associated with this as well. The risks of limited weightbearing for 6 weeks would be the complications of immobilization such as decubitus ulcers, pneumonia, pain, decreased functional status. I also explained to the patient and his father that often times hip fractures are a "harbinger of worsening state,". They understand that often times hip fractures confer with them a decrease in functional status even with operative intervention. Considering the patient is currently a household ambulator and uses a walker when he walks in the community, I suspect that he will need a walker in his home and he will likely require wheelchair when he is out in the community. The patient and his son both expressed understanding to these. After a thorough discussion of all the above, through shared decision making model, the patient has elected to proceed with operative management. Patient is a current every day smoker and I expressed to him the importance of him quitting for his overall health but also for the health of his surgical site and bony healing. He notes that he does not think he will quit but he will keep this in mind. Because of his smoking status he is at a higher risk for perioperative complication. The patient expressed understanding to this. He has been n.p.o. since midnight. The operating room is available this afternoon and we will proceed to the OR pending OR availability. Surgical plan: Closed reduction and cephalomedullary nailing left for left intertrochanteric hip fracture
[2024-10-21] MEDS ORDERED: HYDROmorphone INJ 1 MG/ML SYRINGE IV PRN (12:26)
[2024-10-21] MEDS ORDERED: ONDANSETRON INJ 2 MG/ML 2 ML VIAL IV PRN (12:26)
[2024-10-21] MEDS ORDERED: ATROPINE SULFATE 0.1 MG/ML 10ML SYR IV PRN (12:26)
[2024-10-21] MEDS ORDERED: ePHEDrine sulfate 50 MG/ML AMP IV PRN (12:26)
[2024-10-21] MEDS: ceFAZolin 2,000 MG/15 ML IV PUSH IV ONE (12:36)
[2024-10-21] MEDS ORDERED: PHENYLEPHRINE HCL 10 MG/ML VIAL ONE (12:52)
[2024-10-21] MEDS ORDERED: SODIUM CHLORIDE 0.9% PF INJ 10 ML VIAL ONE (12:58)
[2024-10-21] MEDS ORDERED: PIPERACILLIN/TAZOBACTAM 4.5 GM/100 ML BAG IV SCH (13:00)
[2024-10-21] MEDS ORDERED: SUGAMMADEX SODIUM 200 MG/2 ML VIAL IV ONE (13:19)
[2024-10-21] MEDS ORDERED: PHENYLEPHRINE 100MCG/ML 5ML SYR ONE (13:46)
[2024-10-21] MEDS ORDERED: LARYING-O-JET KIT (LTA) ONE (14:04)
--- NOTE | 2024-10-21 14:22 | Fluoroscopy Report ---
FL hip LT 2-3V CLINICAL HISTORY: LEFT HIP TROCH COMPARISON STUDY: 10/20/2024 FLUOROSCOPY TIME: 156 seconds FLUOROSCOPY IMAGES: 7 EXPOSURE DOSE: 20 mGy FINDINGS: Short left femoral gamma nail shows no hardware complication and there is no displacement a t the proximal femur fracture. IMPRESSION: Intraoperative fluoroscopy. ACT 112: Negative or not required by law. Electronically signed by: Russ Powers M.D. 10/21/2024 2:20 PM
--- NOTE | 2024-10-21 14:26 | Operative Report ---
Post Operative Report Pre & Post Diagnosis Operation Date: 10/21/24 07:50 Pre-Op Diagnosis: Intertrochanteric fracture of left hip. Post-Op Diagnosis: Intertrochanteric fracture of left hip. I identified the patient and participated in the time-out.: Yes Procedure Operation Date: 10/21/24 07:50 Actual Procedures p Left Trochanteric Nail(Left) - Miguel Tanner DO 1. Closed reduction and cephalomedullary nailing left hip 2. Physician directed fluoroscopy less than 1 hour Surgeon Miguel Tanner DO [employer] Received none Estimated Blood Loss 150 Findings Consistent with Post-Op Diagnosis Fluids See anesthesia record Specimens None Indications This is a 74-year-old gentleman who presents today for evaluation of his left hip after a fall that occurred last evening. In his initial evaluation in the emergency department, the patient was noted to have sustained a greater trochanteric hip fracture. I did review his x-rays and CT scan was concern for intertrochanteric extension as such I ordered an MRI to confirm this. Patient had his MRI done this morning and his MRI does demonstrate a complete intertrochanteric hip fracture. I do long discussion with the patient and his son regarding the nature of this diagnosis. We discussed in great detail the pathoanatomy, pathophysiology, treatment options. With regards to intertrochanteric hip fractures, even ones that are nondisplaced, our recommendation is generally for operative intervention to confirm bony stability, prevent future displacement, allow sooner weightbearing, and provide pain control. I expressed to the patient and his son that there are risks associated with surgery that include but are not limited to loss of life/limb, DVT, incomplete relief of pain, need for additional surgery, hardware irritation, hardware complication, hardware failure, iatrogenic injury to bone/nerve/tendon/vessel/cartilage, deep infection. I expressed that the alternative to do operative care would be for nonoperative care. This would involve 6 weeks of limited weightbearing and I expressed that there are risks associated with this as well. The risks of limited weightbearing for 6 weeks would be the complications of immobilization such as decubitus ulcers, pneumonia, pain, decreased functional status. I also explained to the patient and his father that often times hip fractures are a "harbinger of worsening state,". They understand that often times hip fractures confer with them a decrease in functional status even with operative intervention. Considering the patient is currently a household ambulator and uses a walker when he walks in the community, I suspect that he will need a walker in his home and he will likely require wheelchair when he is out in the community. The patient and his son both expressed understanding to these. After a thorough discussion of all the above, through shared decision making model, the patient has elected to proceed with operative management. Patient is a current every day smoker and I expressed to him the importance of him quitting for his overall health but also for the health of his surgical site and bony healing. He notes that he does not think he will quit but he will keep this in mind. Because of his smoking status he is at a higher risk for perioperative complication. The patient expressed understanding to this. He has been n.p.o. since midnight. The operating room is available this afternoon and we will proceed to the OR pending OR availability. Surgical plan: Closed reduction and cephalomedullary nailing left for left intertrochanteric hip fracture Description of Procedure After informed consent was obtained, the patient was correctly identified in the preoperative holding suite, the operative site was marked with the surgeon's initials, the date of surgery, and the word yes. The patient was then taken to the operative suite. The department of anesthesia administered general anesthesia. The patient was transferred from the [facility] to the operative table. All bony prominences were well-padded. Briefing and timeout was performed. All implants were available and sterile at the time. BRIEFING AND DEBRIEFING: Pre and post operative briefing and debriefing was performed. Introductions were made, goals of the procedure were discussed, questions and concerns were addressed. The operative site markings were identified and appropriate. A time [id number] was performed, the patient's correct identity was confirmed and the correct operative sites were identified. The patients pre-operative antibiotic dosing and administration was confirmed along with other SCIP measures. The team was polled at the completion of the surgery and all team members were in agreement that the procedure was without complication, the counts are correct, the wound class was identified and suggestions for improvement were shared. After the patient was transferred from the [facility] to the operative table in supine fashion all bony prominences were well-padded. Patient's legs were placed into the leg holders on the fracture table and the ipsilateral left arm was draped across the upper extremity. This was well-padded. The contralateral leg was scissored below the operative leg to facilitate obtaining x-rays. Fluoroscopy was then used to ensure that we could obtain appropriate fluoroscopic images. We then prepped and draped the left lower extremity in standard sterile fashion using an [place] shower curtain drape. We used fluoroscopy to josh out the anatomy of the proximal femur including the tip of the greater trochanter, the intended path for the lag bolt that would enter into the femoral head and the femoral shaft on the lateral view. We then made a 3 cm incision approximately 2 cm proximal to the tip of the greater trochanter in line with the femur. We used the curved Gunter scissors to dissect bluntly through the gluteal fascia until we encountered the tip of the greater trochanter. We then found an appropriate start point using fluoroscopy on both AP and lateral views and advanced the starting wire into the proximal femur. Over the starting wire, the opening reamer was then used to open the canal. Due to the fact that this was a nondisplaced intertrochanteric hip fracture, we felt as if a short cephalomedullary nail was appropriate. The [employer] TFN alpha 12 mm x 170 mm x 130 degrees TFNa nail was then chosen. The nail was secured to the insertion handle. And then the nail was inserted in an antegrade fashion into the femoral canal. Trajectory and placement was checked on AP and lateral fluoroscopic images and we were satisfied with this, we made an incision for the targeting device for the lag bolt. We ensured appropriate trajectory on both the AP and lateral views and then advanced the wire for the lag bolt into the femoral head such that we ended in a center center position in the femoral head so as to minimize tip to apex distance. We then measured the wire and selected an appropriately sized screw. We reamed for the lag bolt and placed a 85 mm TFNA fenestrated screw through the jig. We did not perform any compression as the fracture was nondisplaced. We locked this statically in place with the proximal locking screw. Next, we removed the targeting sleeve for the lag bolt and used the triple green sleeves for the interlocking screw distally. We drilled through the sleeve, measured, and placed a 5 x 38 mm interlocking bolt distally. We then checked final fluoroscopic images and were satisfied with our fixation. We then thoroughly irrigated all the wounds, closed the deep fascia with 0 Vicryl, the superficial subcutaneous tissue with 2-0 Vicryl and we ran a 3-0 Monocryl within the subcuticular tissue. Finally, we applied Dermabond, Acticoat Flex, 4 x 4, Tegaderm. The patient tolerated this procedure well and was transferred to the PACU in stable condition. Prior to transportation to PACU, all counts were correct and a briefing was performed at the end of the case. Physician-directed fluoroscopy for less than one hour was performed by myself to verify fracture alignment and the safe placement of all internal fixation. The final images saved to PACs showed views demonstrating satisfactory alignment of the fracture and stable internal fixation. Implant verification was performed by myself by reading and confirming the implant information on the packaging with the team before the sterile implants were opened. I was present for the entire procedure. Plan: Weight bearing status: Weightbearing as tolerated left lower extremity Wound care: Keep incisions clean and dry Range of motion: Okay for range of motion VTE Prophylaxis: Okay for DVT prophylaxis from orthopedic standpoint Antibiotics: Perioperative Ancef Pain Control: Multimodal Vitamin D Replacement: Labs pending Discharge Plan: Pending PT/OT Follow Up: With myself in 2 to 3 weeks I attest to the content of the Intraoperative Record and any orders documented therein. Any exceptions are noted below.
[2024-10-21] MEDS: fentaNYL citrate PF 100 MCG/2 ML VIAL IV PRN (15:00)
--- NOTE | 2024-10-21 15:20 | XRay Report ---
XR hip LT min 2V CLINICAL HISTORY: Postoperative evaluation. COMPARISON: Left hip radiographs October 20, 2024. MRI of the left hip October 21, 2024. FINDINGS: There are postoperative findings consistent with internal fixation of the proximal left fe moral fracture with trochanteric nail. Alignment is anatomic. Hardware and is intact and there are no unexpected radiopaque foreign bodies. IMPRESSION: Expected findings following internal fixation of the intertrochanteric fracture of the le ft femur. ACT 112: Negative or not required by law. Electronically signed by: Canelo Gonzales M.D. 10/21/2024 3:19 PM
--- NOTE | 2024-10-21 16:17 | Anesthesiology Progress Note ---
Date of Service October 21, 2024 Anesthesia Post Procedure Vital Signs Vital Signs: Temp Pulse Pulse Pulse Resp BP BP 10/21/24 15:50 81 16 117/81 10/21/24 15:40 75 18 131/77 10/21/24 15:30 76 14 116/70 10/21/24 15:20 77 14 119/68 10/21/24 15:10 78 12 117/69 10/21/24 15:00 79 14 128/78 10/21/24 14:50 82 12 124/80 10/21/24 14:40 81 12 119/74 10/21/24 14:30 36 C L 99 H 16 138/84 10/21/24 12:21 36.8 C 75 75 18 127/70 10/21/24 11:53 36.7 C 75 14 127/70 10/21/24 07:57 36.7 C 79 14 119/73 10/21/24 07:15 10/21/24 04:01 10/21/24 02:46 36.5 C 78 18 137/66 10/21/24 02:35 36.5 C 76 17 123/77 10/21/24 00:00 81 16 128/80 10/20/24 23:30 76 18 118/74 10/20/24 23:03 79 19 116/70 10/20/24 22:37 78 10/20/24 21:41 81 18 115/66 10/20/24 18:42 83 10/20/24 17:04 89 14 128/79 Pulse Ox O2 Del Method O2 Flow Rate 10/21/24 15:50 93 Nasal Cannula 3 10/21/24 15:40 94 Nasal Cannula 3 10/21/24 15:30 94 Nasal Cannula 3 10/21/24 15:20 95 Nasal Cannula 3 10/21/24 15:10 93 Nasal Cannula 3 10/21/24 15:00 92 Nasal Cannula 3 10/21/24 14:50 93 Nasal Cannula 3 10/21/24 14:40 92 Nasal Cannula 3 10/21/24 14:30 97 Nasal Cannula 3 10/21/24 12:21 94 Nasal Cannula 2 10/21/24 11:53 95 Nasal Cannula 2 10/21/24 07:57 96 Nasal Cannula 2 10/21/24 07:15 Nasal Cannula 2 10/21/24 04:01 Nasal Cannula 2 10/21/24 02:46 96 Nasal Cannula 2 10/21/24 02:35 92 10/21/24 00:00 91 10/20/24 23:30 93 10/20/24 23:03 93 10/20/24 22:37 10/20/24 21:41 94 Nasal Cannula 2 10/20/24 18:42 10/20/24 17:04 93 Room Air Pain Intensity Medial Back: Pain Intensity: 2 Left Hip: Pain Intensity: 4 Transfer of Care Handoff Completed per policy Notes Mental Status: alert / awake / arousable Patient Amnestic to Procedure: Yes Nausea / Vomiting: adequately controlled Pain: adequately controlled Airway Patency, RR, SpO2: stable & adequate BP & HR: stable & adequate Hydration State: stable & adequate Anesthetic Complications: no major complications apparent
[2024-10-21] MEDS ORDERED: Nursing to Pharmacy Communication SCH (16:30)
[2024-10-21] MEDS: POTASSIUM CHLORIDE CRTAB 20 MEQ TABCR PO SCH (17:37)
[2024-10-21] MEDS: ceFAZolin 1000MG 1,000 MG/7.5 ML SYR IV SCH (20:27)
[2024-10-21] MEDS: ACETAMINOPHEN 325 MG TAB PO PRN (21:53)
[2024-10-21] MEDS: CHOLECALCIFEROL 125 MCG (5,000 UNITS) TAB PO SCH (22:19)
[2024-10-22] MEDS: KETOROLAC TROMETHAMINE 15 MG/ML VIAL IV ONE (00:18)
--- NOTE | 2024-10-22 06:35 | Electrocardiogram Report ---
Test Reason : Blood Pressure : */* mmHG Vent. Rate : 91 BPM Atrial Rate : 91 BPM P-R Int : 150 ms QRS Dur : 76 ms QT Int : 350 ms P-R-T Axes : 72 -74 67 degrees QTcB Int : 430 ms Normal sinus rhythm Left anterior fascicular block Abnormal ECG When compared with ECG of 05-Jun-2024 19:40, No significant change Confirmed by Ruddy Weems ([id number]) on 10/22/2024 6:35:11 AM Referred By: REFERRED SELF Confirmed By: Ruddy Weems
[2024-10-22 06:48] LABS: Basophils # (auto) 0.07 K/uL (0.00-0.20); Basophils % (auto) 0.7 %; Eosinophils # (auto) 0.46 K/uL (0.00-0.50); Eosinophils % (auto) 4.9 %; Hematocrit (blood only) 32.3 % (42.0-52.0); Hemoglobin 10.7 g/dl (14.0-18.0); Immature Granulocytes # (auto) 0.06 K/uL (0.01-0.20); Immature Granulocytes % (auto) 0.6 %; Lymphocytes # (auto) 1.95 K/uL (1.20-3.40); Lymphocytes % (auto) 20.8 %; Mean Corpuscular Hemoglobin 31.1 pg (25.0-34.0); Mean Corpuscular Hgb Conc 33.1 g/dL (32.0-36.0); Mean Corpuscular Volume 93.9 fL (80.0-100.0); Mean Platelet Volume 9.2 fL (9.4-12.4); Monocytes # (auto) 0.73 K/uL (0.11-0.59); Monocytes % (auto) 7.8 %; Neutrophils % (auto) 65.2 %; Platelet Count 180 K/uL (130-400); RDW Coefficient of Variation 13.7 % (11.5-14.5); RDW Standard Deviation 46.6 fL (36.4-46.3); Red Blood Count 3.44 M/uL (4.70-6.10); White Blood Count 9.37 K/ul (4.8-10.8)
[2024-10-22 06:53] LABS: Albumin Level 2.8 gm/dl (3.4-5.0); BUN Creatinine Ratio 14.1 (10-20); Bilirubin Direct 0.2 mg/dl (0-0.2); Bilirubin,Total 0.6 mg/dl (0.2-1.0); Calcium 7.5 mg/dl (8.6-10.3); Creatinine Clr Calc Pharmacy 41.1 ml/min; Magnesium 1.6 mg/dl (1.7-2.4); Potassium 4.6 mmol/L (3.5-5.1); Total Protein 5.3 gm/dl (6.0-8.3)
--- NOTE | 2024-10-22 06:55 | Orthopedic Progress Note ---
Date of Service October 22, 2024 Assessment & Plan (1) Intertrochanteric fracture of left hip: (2) Diabetes mellitus type 2, controlled: (3) Fall from standing: (4) GERD (gastroesophageal reflux disease): (5) CARLO (acute kidney injury): Plan Patient doing well postoperative day #1 status post cephalomedullary nailing of left greater trochanteric hip fracture with intertrochanteric extension. Patient notes his pain is completely improved as compared to preop. He can weight-bear as tolerated on the left lower extremity. He should keep his dressings clean and dry. He will see me in clinic in about 2 weeks for wound check. Okay for DVT prophylaxis from orthopedic standpoint Multimodal pain control Out of bed to chair 3 times daily with all meals Vitamin D labs pending Admission and Anticipated Discharge Date Admission Date: October 21, 2024 Subjective 74-year-old gentleman postoperative day #1 status post closed reduction cephalomedullary nailing of left intertrochanteric hip fracture. Patient doing well. Notes his pain is much improved from Preop. Review of Systems Review of Systems: All systems reviewed & are unremarkable except as noted in HPI & below Physical Exam Physical Exam: On physical examination, the patient Dressings are clean dry and intact. His sensation is intact to light touch in his left lower extremity. He demonstrates active EHL/FHL/GSC/TA function. foot is warm and well-perfused. Results & Data Vital Signs (Past 12 Hours) Vital Signs Temp Pulse Resp BP Pulse Ox O2 Del Method O2 Flow Rate 10/22/24 03:00 36.5 C 87 18 100/49 L 96 Nasal Cannula 2 10/21/24 23:11 36.5 C 98 H 18 92/44 L 94 Nasal Cannula 2 10/21/24 20:20 Nasal Cannula 2 10/21/24 19:07 36.3 C L 101 H 18 101/59 L 93 Nasal Cannula 2 Diagnostic Findings Post operative images personally reviewed. 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
[2024-10-22 07:06] LABS: Estimated Average Glucose 174 mg/dl; Hemoglobin A1C 7.7 % (4.5-5.6)
--- NOTE | 2024-10-22 09:54 | Hospitalist Progress Note ---
Date of Service October 22, 2024 Assessment & Plan (1) Closed fracture of greater trochanter of left femur: Plan: Postoperative day 1 after cephalomedullary nailing on the left side, follow with post op recommendation by orthopedics, PT OT assessment and likely placement. Adjust pain control. (2) Diabetes mellitus type 2, controlled: Plan: Blood sugars continues to remain stable, continue with Lantus, continue with gabapentin for peripheral neuropathy and midodrine which I think was for a component of autonomic neuropathy. (3) Chronic venous stasis dermatitis: Plan: His lower extremity erythema and wrinkling are signs of chronic venous stasis, clinically this did not seem to be needing antibiotic however later one of his blood cultures came back positive. (4) Hypomagnesemia: Plan: Magnesium was 1.6 and will be replaced. Plan Continue adjusting pain control, awaiting to be assessed by PT and OT, likely needs placement. Admission and Anticipated Discharge Date Admission Date: October 21, 2024 Subjective Patient is a very pleasant 74-year-old gentleman with history of diabetes mellitus type 2, hypotension on midodrine who after a fall sustained a left greater trochanteric fracture, patient lives alone and was brought to the hospital, radiographic evaluation was reviewed, patient was seen by orthopedics, taken for surgery on 10/21/2024, he underwent closed reduction and cephalomedullary nailing of left hip. Patient was seen and examined today postoperative day 1, he is doing well relatively, awaiting assessment by PT and OT and likely placement. He had electrolyte abnormalities which are going to be replaced. Physical Exam Physical Exam: VITALS: Reviewed. WEIGHT/BMI reviewed. GEN: Underweight/frail looking LUNGS: CTAB, no w/r/c. ABD: Soft, NT/ND, NBS, no masses or organomegaly. EXT: No swelling, ongoing skin wrinkling I think it is a marker of chronic venous stasis Results & Data Results & Data Vital Signs (Past 12 Hours) Vital Signs Temp Pulse Resp BP Pulse Ox O2 Del Method O2 Flow Rate 10/22/24 07:16 36.4 C L 80 16 112/61 97 Nasal Cannula 2 10/22/24 03:00 36.5 C 87 18 100/49 L 96 Nasal Cannula 2 10/21/24 23:11 36.5 C 98 H 18 92/44 L 94 Nasal Cannula 2 Laboratory Results Laboratory Results - last 24 hr 10/21/24 10/21/24 10/21/24 08:34 11:51 14:32 WBC RBC Hgb Hct MCV MCH MCHC RDW Std Deviation RDW Coeff of Cassia Plt Count MPV Immature Gran % (Auto) Neut % (Auto) Lymph % (Auto) Parmer % (Auto) Eos % (Auto) Baso % (Auto) Neut # (Auto) Lymph # (Auto) Parmer # (Auto) Eos # (Auto) Baso # (Auto) Immature Gran # (Auto) Sodium Potassium Chloride Carbon Dioxide Anion Gap BUN Creatinine Est Cr Clr Drug Dosing eGFR BUN/Creatinine Ratio Glucose POC Glucose 96 98 Estimat Average Glucose Hemoglobin A1c Calcium Magnesium Total Bilirubin Direct Bilirubin AST ALT Alkaline Phosphatase Total Protein Albumin 25-OH Vitamin D Total Pending 10/21/24 10/21/24 10/22/24 16:15 20:43 06:13 WBC 9.37 RBC 3.44 L Hgb 10.7 L D Hct 32.3 L MCV 93.9 MCH 31.1 MCHC 33.1 RDW Std Deviation 46.6 H RDW Coeff of Cassia 13.7 Plt Count 180 MPV 9.2 L Immature Gran % (Auto) 0.6 Neut % (Auto) 65.2 Lymph % (Auto) 20.8 Parmer % (Auto) 7.8 Eos % (Auto) 4.9 Baso % (Auto) 0.7 Neut # (Auto) 6.10 Lymph # (Auto) 1.95 Parmer # (Auto) 0.73 H Eos # (Auto) 0.46 Baso # (Auto) 0.07 Immature Gran # (Auto) 0.06 Sodium 138 Potassium 4.6 Chloride 106 Carbon Dioxide 27 Anion Gap 5 BUN 19 Creatinine 1.35 Est Cr Clr Drug Dosing 41.1 eGFR 54.75 BUN/Creatinine Ratio 14.1 Glucose 115 H POC Glucose 126 H 179 H Estimat Average Glucose 174 Hemoglobin A1c 7.7 H Calcium 7.5 L Magnesium 1.6 L Total Bilirubin 0.6 Direct Bilirubin 0.2 AST 23 ALT 9 Alkaline Phosphatase 204 H Total Protein 5.3 L Albumin 2.8 L 25-OH Vitamin D Total 10/22/24 07:52 WBC RBC Hgb Hct MCV MCH MCHC RDW Std Deviation RDW Coeff of Cassia Plt Count MPV Immature Gran % (Auto) Neut % (Auto) Lymph % (Auto) Parmer % (Auto) Eos % (Auto) Baso % (Auto) Neut # (Auto) Lymph # (Auto) Parmer # (Auto) Eos # (Auto) Baso # (Auto) Immature Gran # (Auto) Sodium Potassium Chloride Carbon Dioxide Anion Gap BUN Creatinine Est Cr Clr Drug Dosing eGFR BUN/Creatinine Ratio Glucose POC Glucose 122 H Estimat Average Glucose Hemoglobin A1c Calcium Magnesium Total Bilirubin Direct Bilirubin AST ALT Alkaline Phosphatase Total Protein Albumin 25-OH Vitamin D Total Diagnostic Findings Hip X-Ray 10/21/24 00:00 FL hip LT 2-3V CLINICAL HISTORY: LEFT HIP TROCH COMPARISON STUDY: 10/20/2024 FLUOROSCOPY TIME: 156 seconds FLUOROSCOPY IMAGES: 7 EXPOSURE DOSE: 20 mGy FINDINGS: Short left femoral gamma nail shows no hardware complication and there is no displacement at the proximal femur fracture. IMPRESSION: Intraoperative fluoroscopy. ACT 112: Negative or not required by law. Electronically signed by: Russ Powers M.D. 10/21/2024 2:20 PM Hip MRI 10/21/24 08:19 MR hip LT wo con CLINICAL HISTORY: left hip fracture TECHNIQUE: Multisequence, multiplanar images of the left hip were obtained without the administration of intravenous gadolinium. Comparison: Comparison is made to left hip radiograph 10/20/[address] abdomen pelvis 07/20/2025 FINDINGS: The visualized pelvic bones demonstrate normal marrow signal without focal abnormality. Edema is seen in the femoral neck compatible with an impacted fracture of the greater trochanter. There are no findings to suggest iliopsoas or trochanteric bursitis and the capsular structures are free of tear. Edema is seen about the quadratus femoris and gluteus tendons. There is likely discontinuity of the left piriformis muscle at the musculotendinous junction. No joint effusion or abnormal fluid collections are present such as a paralabral cyst. The articular cartilage is intact with no focal osteochondral defects or intra articular bodies. The visualized portions of the intraperitoneal structures and pelvic sidewalls are normal. IMPRESSION: Findings compatible with an avulsion type fracture of the greater tear of the piriformis muscles and possibly partial-thickness tears of the gluteus medius or quadratus femoris. ACT 112: Negative or not required by law. Electronically signed by: Jamar Lopez M.D. 10/21/2024 11:27 AM Foot X-Ray 10/21/24 08:30 XR foot RT min 3V routine CLINICAL HISTORY: right great toe wound plantar aspect COMPARISON: None FINDINGS: A wound of the plantar aspect of the right great toe is noted. There is no bony erosion within the right great toe. Right great toe soft tissue swelling is present. There is also dorsal soft tissue swelling of the right foot. No acute fractures are identified. Tarsometatarsal joints are intact. There is extensive vascular calcification. Mild degenerative changes are noted within multiple articulations of the right foot. IMPRESSION: 1. Right great toe wound. No radiographic evidence for acute osteomyelitis. No radiopaque foreign bodies. 2. Right great toe soft tissue swelling. ACT 112: Negative or not required by law. Electronically signed by: Canelo Gonzales M.D. 10/21/2024 10:23 AM Hip X-Ray 10/21/24 14:22 XR hip LT min 2V CLINICAL HISTORY: Postoperative evaluation. COMPARISON: Left hip radiographs October 20, 2024. MRI of the left hip October 21, 2024. FINDINGS: There are postoperative findings consistent with internal fixation of the proximal left femoral fracture with trochanteric nail. Alignment is anatomic. Hardware and is intact and there are no unexpected radiopaque foreign bodies. IMPRESSION: Expected findings following internal fixation of the intertrochanteric fracture of the left femur. ACT 112: Negative or not required by law. Electronically signed by: Canelo Gonzales M.D. 10/21/2024 3:19 PM Medications Administered Current Inpatient Medications Acetaminophen (Acetaminophen 325 Mg Tab) 650 mg PO Q6H PRN PRN Reason: pain/fever Stop: 11/20/24 02:35 Last Admin: 10/21/24 21:53 Dose: 650 mg Clobetasol Propionate (Clobetasol Propionate 0.05% Cream 15 Gm Tube) 1 appln TOP BID [facility] Stop: 11/20/24 08:59 Last Admin: 10/22/24 09:00 Dose: 1 appln Dextrose (Dextrose 50% 50 Ml Syringe) 25 - 50 ml IV UD PRN; Protocol PRN Reason: Hypoglycemia Protocol Stop: 11/20/24 02:35 Gabapentin (Gabapentin 300 Mg Cap) 300 mg PO TID [facility] Stop: 11/20/24 08:59 Last Admin: 10/22/24 08:43 Dose: 300 mg Glucagon (Glucagon For Inj 1 Mg Vial) 1 mg SQ UD PRN; Protocol PRN Reason: Hypoglycemia Protocol Stop: 11/20/24 02:35 Glucose (Glucose 40% Gel 15 Gm Tube) 15 - 30 gm PO UD PRN; Protocol PRN Reason: Hypoglycemia Protocol Stop: 11/20/24 02:35 Glucose (Glucose 10 Tab/Tube) 4 - 8 tab PO UD PRN; Protocol PRN Reason: Hypoglycemia Protocol Stop: 11/20/24 02:35 Hydromorphone HCl (Hydromorphone Inj 0.5 Mg/0.5 Ml Syr) 0.5 mg IV Q6H PRN PRN Reason: Severe Pain (Scale 7, 8, 9,10) Stop: 11/04/24 02:35 Last Admin: 10/21/24 08:22 Dose: 0.5 mg Hydromorphone HCl (Hydromorphone Inj 0.5 Mg/0.5 Ml Syr) 0.25 mg IV Q6H PRN PRN Reason: Moderate Pain (Scale 4, 5, 6) Stop: 11/04/24 02:35 Last Admin: 10/21/24 16:36 Dose: 0.25 mg Cefazolin Sodium (Ancef 1000mg) 1,000 mg in 7.5 mls @ 2.5 mls/min IV Q8H [facility] Stop: 10/22/24 19:59 Last Admin: 10/22/24 04:20 Dose: 2.5 mls/min Insulin Aspart (Insulin Aspart Per Unit Charge) 0 units SC ACHS [facility] Stop: 11/20/24 16:44 Last Admin: 10/22/24 09:04 Dose: 5 units Insulin Glargine (Lantus Per Unit Charge) 3 units SQ DAILY [facility] Stop: 11/20/24 08:59 Last Admin: 10/22/24 09:04 Dose: 3 units Levalbuterol HCl (Levalbuterol 1.25 Mg/3 Ml Neb) 1.25 mg NEB Q4H PRN PRN Reason: Shortness Of Breath Or Wheezing Stop: 11/20/24 02:35 Magnesium Oxide (Magnesium Oxide 400 Mg Tab) 400 mg PO TID [facility] Stop: 11/20/24 08:59 Last Admin: 10/22/24 08:43 Dose: 400 mg Midodrine (Midodrine Hcl 2.5 Mg Tab) 5 mg PO TIDM [facility] Stop: 11/20/24 07:59 Last Admin: 10/22/24 07:57 Dose: 5 mg Miscellaneous (Carbohydrates For Hypoglycemia ) 15 - 30 gm PO UD PRN PRN Reason: Hypoglycemia Protocol Stop: 11/20/24 02:35 Pantoprazole Sodium (Pantoprazole 40 Mg Tab) 40 mg PO DAILYBB [facility] Stop: 11/20/24 06:29 Last Admin: 10/22/24 06:11 Dose: 40 mg Polyethylene Glycol (Polyethylene (Miralax) 17 Gm Pack) 17 gm PO DAILY PRN PRN Reason: Constipation Stop: 11/20/24 02:35 Potassium Chloride (Potassium Chloride Crtab 20 Meq Tabcr) 20 meq PO Q24H [facility] Stop: 11/20/24 16:59 Last Admin: 10/21/24 17:37 Dose: 20 meq Vitamin D (Cholecalciferol 125 Mcg (5,000 Units) Tab) 125 mcg PO HS [facility] Stop: 11/20/24 20:59 Last Admin: 10/21/24 22:19 Dose: Not Given (1) Closed fracture of greater trochanter of left femur Encounter type: initial encounter Fracture alignment: nondisplaced Qualified Code(s): S72.115A - Nondisplaced fracture of greater trochanter of left femur, initial encounter for closed fracture (2) Diabetes mellitus type 2, controlled Diabetes mellitus longterm insulin use: with assistant terminal manager use Diabetes mellitus complication status: with neurologic complications Diabetes mellitus complication detail: with polyneuropathy Qualified Code(s): E11.42 - Type 2 diabetes mellitus with diabetic polyneuropathy; Z79.4 - [facility] (current) use of insulin
[2024-10-23] MEDS: KETOROLAC TROMETHAMINE 15 MG/ML VIAL IV ONE (00:14)
[2024-10-23] MEDS: ACETAMINOPHEN 1,000 MG/100 ML VIAL IV STA (01:54)
--- NOTE | 2024-10-23 09:53 | Hospitalist Progress Note ---
Date of Service October 23, 2024 Assessment & Plan (1) Closed fracture of greater trochanter of left femur: Plan: Postoperative day 2 after cephalomedullary nailing on the left side, follow with post op recommendation by orthopedics, adjust pain control, awaiting placement likely on Saturday. (2) Diabetes mellitus type 2, controlled: Plan: Blood sugars are stable [id number], continue with Lantus, continue with gabapentin for peripheral neuropathy and midodrine which I think was for a component of autonomic neuropathy. (3) Chronic venous stasis dermatitis: Plan: His lower extremity erythema and wrinkling are signs of chronic venous stasis, clinically this did not seem to be needing antibiotic. (4) Hypomagnesemia: Plan: Magnesium was 1.6 and was replaced. Plan Continue adjusting pain control, awaiting placement likely on Saturday. Admission and Anticipated Discharge Date Admission Date: October 21, 2024 Subjective Patient is a very pleasant 74-year-old gentleman with history of diabetes mellitus type 2, hypotension on midodrine who after a fall sustained a left greater trochanteric fracture, patient lives alone and was brought to the hospital, radiographic evaluation was reviewed, patient was seen by orthopedics, taken for surgery on 10/21/2024, he underwent closed reduction and cephalomedullary nailing of left hip. Patient was seen and examined today postoperative day 2, he is overall stable, he was not happy about pain medication regimen. Case was discussed with Ortho provider and also case management, it seems that the destination facility might be able to accept him on Saturday. Physical Exam Physical Exam: VITALS: Reviewed. WEIGHT/BMI reviewed. GEN: Underweight/frail looking LUNGS: CTAB, no w/r/c. ABD: Soft, NT/ND, NBS, no masses or organomegaly. EXT: No swelling, chronic venous stasis. Results & Data Results & Data Vital Signs (Past 12 Hours) Vital Signs Temp Pulse Resp BP Pulse Ox O2 Del Method 10/23/24 08:49 36.5 C 88 20 119/65 93 Room Air 10/23/24 07:35 36.6 C 88 16 127/70 91 Room Air 10/23/24 00:53 36.6 C 96 H 16 133/60 92 Room Air Laboratory Results Laboratory Results - last 24 hr 10/22/24 10/22/24 10/22/24 08:59 11:21 16:59 POC Glucose 189 H 78 25-OH Vitamin D Total 23.3 L 10/22/24 10/23/24 20:55 07:46 POC Glucose 150 H 127 H 25-OH Vitamin D Total Medications Administered Current Inpatient Medications Acetaminophen (Acetaminophen 325 Mg Tab) 650 mg PO Q6H PRN PRN Reason: pain/fever Stop: 11/20/24 02:35 Last Admin: 10/23/24 05:47 Dose: 650 mg Clobetasol Propionate (Clobetasol Propionate 0.05% Cream 15 Gm Tube) 1 appln TOP BID [facility] Stop: 11/20/24 08:59 Last Admin: 10/23/24 09:40 Dose: 1 appln Dextrose (Dextrose 50% 50 Ml Syringe) 25 - 50 ml IV UD PRN; Protocol PRN Reason: Hypoglycemia Protocol Stop: 11/20/24 02:35 Gabapentin (Gabapentin 300 Mg Cap) 300 mg PO TID [facility] Stop: 11/20/24 08:59 Last Admin: 10/23/24 07:59 Dose: 300 mg Glucagon (Glucagon For Inj 1 Mg Vial) 1 mg SQ UD PRN; Protocol PRN Reason: Hypoglycemia Protocol Stop: 11/20/24 02:35 Glucose (Glucose 40% Gel 15 Gm Tube) 15 - 30 gm PO UD PRN; Protocol PRN Reason: Hypoglycemia Protocol Stop: 11/20/24 02:35 Glucose (Glucose 10 Tab/Tube) 4 - 8 tab PO UD PRN; Protocol PRN Reason: Hypoglycemia Protocol Stop: 11/20/24 02:35 Hydromorphone HCl (Hydromorphone Inj 0.5 Mg/0.5 Ml Syr) 0.5 mg IV Q6H PRN PRN Reason: Severe Pain (Scale 7, 8, 9,10) Stop: 11/04/24 02:35 Last Admin: 10/23/24 08:38 Dose: 0.5 mg Hydromorphone HCl (Hydromorphone Inj 0.5 Mg/0.5 Ml Syr) 0.25 mg IV Q6H PRN PRN Reason: Moderate Pain (Scale 4, 5, 6) Stop: 11/04/24 02:35 Last Admin: 10/21/24 16:36 Dose: 0.25 mg Insulin Aspart (Insulin Aspart Per Unit Charge) 0 units SC ACHS [facility] Stop: 11/20/24 16:44 Last Admin: 10/23/24 08:34 Dose: 4 units Insulin Glargine (Lantus Per Unit Charge) 3 units SQ DAILY [facility] Stop: 11/20/24 08:59 Last Admin: 10/23/24 08:35 Dose: 3 units Levalbuterol HCl (Levalbuterol 1.25 Mg/3 Ml Neb) 1.25 mg NEB Q4H PRN PRN Reason: Shortness Of Breath Or Wheezing Stop: 11/20/24 02:35 Magnesium Oxide (Magnesium Oxide 400 Mg Tab) 400 mg PO TID [facility] Stop: 11/20/24 08:59 Last Admin: 10/23/24 07:58 Dose: 400 mg Midodrine (Midodrine Hcl 2.5 Mg Tab) 5 mg PO TIDM [facility] Stop: 11/20/24 07:59 Last Admin: 10/23/24 07:58 Dose: 5 mg Miscellaneous (Carbohydrates For Hypoglycemia ) 15 - 30 gm PO UD PRN PRN Reason: Hypoglycemia Protocol Stop: 11/20/24 02:35 Pantoprazole Sodium (Pantoprazole 40 Mg Tab) 40 mg PO DAILYBB [facility] Stop: 11/20/24 06:29 Last Admin: 10/23/24 05:48 Dose: 40 mg Polyethylene Glycol (Polyethylene (Miralax) 17 Gm Pack) 17 gm PO DAILY PRN PRN Reason: Constipation Stop: 11/20/24 02:35 Potassium Chloride (Potassium Chloride Crtab 20 Meq Tabcr) 20 meq PO Q24H [facility] Stop: 11/20/24 16:59 Last Admin: 10/22/24 17:33 Dose: 20 meq Vitamin D (Cholecalciferol 125 Mcg (5,000 Units) Tab) 125 mcg PO HS [facility] Stop: 11/20/24 20:59 Last Admin: 10/22/24 20:16 Dose: 125 mcg (1) Closed fracture of greater trochanter of left femur Encounter type: initial encounter Fracture alignment: nondisplaced Qualified Code(s): S72.115A - Nondisplaced fracture of greater trochanter of left femur, initial encounter for closed fracture (2) Diabetes mellitus type 2, controlled Diabetes mellitus sander portable machine insulin use: with sander portable machine use Diabetes mellitus complication status: with neurologic complications Diabetes mellitus complication detail: with polyneuropathy Qualified Code(s): E11.42 - Type 2 diabetes mellitus with diabetic polyneuropathy; Z79.4 - correction (current) use of insulin
--- NOTE | 2024-10-23 14:53 | Podiatry Consultation ---
Date of Consultation October 23, 2024 Assessment & Plan (1) Diabetes mellitus type 2, controlled: Diabetes mellitus fpc insulin use: with fpc use Diabetes mellitus complication status: with neurologic complications Diabetes mellitus complication detail: with polyneuropathy Qualified Code(s): E11.42 - Type 2 diabetes mellitus with diabetic polyneuropathy; Z79.4 - [facility] (current) use of insulin (2) Chronic ulcer of right foot with fat layer exposed: Plan Patient examined and evaluated. - Ulcer appears chronic, neuropathic. Should heal without surgical intervention. Can f/u outpatient once he is discharged. - Can also followup with [facility] outpatient for continued care. - Pulses diminished. Could benefit from non-invasive vascular testing while inpatient to establish baseline arterial inflow. - If this fails to heal over the next few months, or if he develops worse signs of local infection, would recommend surgery for biopsy of underlying bone. - Will follow up next week if he remains inpatient. Thank you for the consult. History of Present Illness Reason for Consultation: Foot ulceration Attending Physician: Juliet Cedillo MD History of Present Illness Patient seen at bedside. States he has been admitted for treatment of a hip fracture, for which he just had successful surgery. He was noted to also have an ulceration underneath his great toe. The patient had never noticed this and has no knowledge of how long it has been there. Denies any similar complaints in the past and has not sought treatment for foot/ankle concerns in the past. He denies any pain or symptoms relating to the feet, but does have profound numbness to the foot overall. He denies any new or worsening signs or symptoms of infection. Also denies any recent medical history change. Allergies Allergy/AdvReac Type Severity Reaction Status Date / Time No Known Allergies Allergy Verified 02/28/24 17:00 Home Medications Medication Instructions Recorded Confirmed Type magnesium oxide 400 mg (241.3 mg 400 mg PO TID 04/05/23 10/20/24 History magnesium) tablet cholecalciferol (vitamin D3) 125 125 mcg PO HS 06/18/23 10/20/24 History mcg (5,000 unit) tablet (Vitamin D3) metformin 1,000 mg tablet 1,000 mg PO .DAILY AFTER SUPPER 06/18/23 10/20/24 History potassium chloride 20 mEq 20 meq PO .DAILY AFTER SUPPER 11/09/23 10/20/24 History tablet,extended release(part/cryst) insulin aspart U-100 100 unit/mL 1 sliding scale dose subcut AC 02/21/24 10/20/24 History (3 mL) subcutaneous pen (Novolog FlexPen U-100 Insulin aspart) insulin glargine 100 unit/mL (3 6 unit subcut QAM 02/21/24 10/20/24 History mL) subcutaneous pen (Lantus Solostar U-100 Insulin) pantoprazole 20 mg tablet,delayed 20 mg PO DAILYBB 02/21/24 10/20/24 History release midodrine 5 mg tablet 5 mg PO TID #90 tabs 03/06/24 10/20/24 Rx clobetasol 0.05 % topical cream 1 applic topical UD 10/20/24 10/20/24 History clotrimazole-betamethasone 1 1 applic topical BID 10/20/24 10/20/24 History %-0.05 % topical cream gabapentin 300 mg capsule 300 mg PO TID 10/20/24 10/20/24 History tramadol 50 mg tablet 50 mg PO Q6 PRN pain #30 tabs 10/24/24 Rx Patient History Medical History Hypomagnesemia 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 Diabetes mellitus, type 2 Cataract upcoming surgery for correction Low blood pressure On Midodrine Chronic obstructive pulmonary disease Surgical History History of esophagogastroduodenoscopy (EGD) History of colonoscopy History of tooth extraction Family History Other No family history of adverse response to anesthesia Social History Smoking Status: Current every day smoker Tobacco Type: Cigarettes Cigarettes Per Day: 20; Second Hand Exposure: No; Do You Dip or Chew Tobacco: No; Tobacco Cessation Education Requested by Patient: No Hx Alcohol Use: No Hx Substance Use: No Preferred Language: Polish Communication Ability: Effective Washer Cutter Required: No Beliefs That Will Affect Care: None Current Living Situation: Alone Current Living Situation Comment: son lives down the road Other Information That Helps Us Care for You: No Feels Safe at Home: Yes Safety Concerns: Feels Safe At This Time Assistive Devices: Walker Review of Systems Review of Systems: All systems reviewed & are unremarkable except as noted in HPI & below Constitutional: no fever, no chills and no fatigue Eyes: no problem reported Ear, Nose, Mouth, Throat: no problem reported Respiratory: no problem reported Cardiovascular: + edema; no problem reported Gastrointestinal: no nausea, no vomiting and no problem reported Musculoskeletal: no problem reported Integumentary: + skin ulcer, + wounds and + erythema Neurologic: + loss of sensation, + numbness and + pa resthesia; no generalized weakness Psychiatric: no problem reported Physical Exam Physical Exam: Lower extremity focused exam: DP/PT pulses absent. Advanced trophic changes with hair growth loss, skin thinning, dependent rubor. Nails dystrophic, elongated. Ulceration noted sub right 1st toe, measuring 0.8cm in diameter. Wound bed is 80% granular, 20% fibrotic. No necrotic/nonviable tissue. Overhanging hyperkeratotic skin edges without ascending cellulitis. No deep probing to bone. CFT brisk to the digits. Protective sensation absent. No pain to foot/ankle. Constitutional: WD/WN, vitals as above + ill appearing and + thin Eyes: PERRL, conjunctivae normal, anicteric sclerae ENMT: external ear and nose normal, oropharynx normal Mouth: + poor dentition Neck: trachea midline, no thyromegaly normal visual inspection Respiratory: normal respiratory effort; no respiratory distress Cardiovascular: Rate/Rhythm: regular rate and regular rhythm Vessels: + posterior tibial pulses abnormal and + dorsalis pedis pulses abnormal Chest (Breasts): Chest: normal inspection of chest Gastrointestinal (Abdomen): Inspection/Auscultation: abdomen normal to inspection Percussion/Palpation: + abdomen tender and abdomen soft Musculoskeletal: no cyanosis or clubbing, extremities motor strength 5/5 Head/Neck/Chest: normocephalic and head atraumatic Extremities: extremities normal to inspection Skin: + ulcer, + skin tightening, + skin atrop hy, + erythema and + nails dystrophic; + abnormal skin elasticity and no eschar Neurologic: moves all extremities and awake; + abnormal touch/ pain/proprioception, + abnormal sensation to monofilament and no focal motor deficits Psychiatric: A+Ox3, euthymic affect Results & Data Vital Signs (Past 12 Hours) Vital Signs Temp Pulse Resp BP Pulse Ox O2 Del Method 10/23/24 14:17 36.3 C L 80 16 109/70 95 Room Air 10/23/24 12:30 87 20 109/61 94 Room Air 10/23/24 08:49 36.5 C 88 20 119/65 93 Room Air 10/23/24 07:35 36.6 C 88 16 127/70 91 Room Air 10/23/24 07:20 Room Air
--- NOTE | 2024-10-23 15:47 | Orthopedic Progress Note ---
<Statement entered by Miguel Tanner DO - 10/27/24 13:37> Patient was seen and evaluated and the note by the physicians personal care assistant was reviewed. I agree with the plan and we will plan to see the patient in about 2 weeks in the office. He can weight-bear as tolerated. Okay for anticoagulation from orthopedic standpoint. Date of Service October 23, 2024 Assessment & Plan (1) Intertrochanteric fracture of left hip: Plan Patient doing well postoperative day #2 status post cephalomedullary nailing of left greater trochanteric hip fracture with intertrochanteric extension. He can weight-bear as tolerated on the left lower extremity. He should keep his dressings clean and dry. He will see me in clinic in about 2 weeks for wound check. Okay for DVT prophylaxis from orthopedic standpoint Multimodal pain control Out of bed to chair 3 times daily with all meals Vitamin D labs pending Orthopedics will sign off at this time. The patient will follow up with Dr. Tanner at the [facility] office in approximately 2 weeks after surgery. Admission and Anticipated Discharge Date Admission Date: October 21, 2024 Subjective Patient states he is having pain in the left hip and the pain is moderately controlled with his pain medication. He has been out of bed previously with some increase in pain. The hospitalist was also seeing the patient at the time of my visit and we discussed improved pain control. No new complaints today. Physical Exam Constitutional: WD/WN, vitals as above no acute distress (Lying comfortably in bed) Musculoskeletal: Hip: + surgical incision (Left hip dressing is C/D/I); no deformity, no skin erythema and no ecchymosis Skin: no rashes, warm and dry Trauma: no evidence of skin trauma Neurologic: normal touch/pain/proprioception Psychiatric: A+Ox3, euthymic affect Speech: normal rate/rhythm/volume of speech Results & Data Vital Signs (Past 12 Hours) Vital Signs Temp Pulse Resp BP Pulse Ox O2 Del Method 10/23/24 14:17 36.3 C L 80 16 109/70 95 Room Air 10/23/24 12:30 87 20 109/61 94 Room Air 10/23/24 08:49 36.5 C 88 20 119/65 93 Room Air 10/23/24 07:35 36.6 C 88 16 127/70 91 Room Air 10/23/24 07:20 Room Air
--- NOTE | 2024-10-23 17:47 | Ultrasound Report ---
EXAM: US Duplex Bilateral Lower Extremities Arteries INDICATION: Right foot ulcer. TECHNIQUE: Real-time duplex ultrasound scan of the bilateral lower extremity arteries integrating B-mode two-dimensional vascular structure, Doppler spectral analysis and color flow Doppler imaging. COMPARISON: No relevant prior studies available. FINDINGS: Right common femoral artery: Peak systolic velocity 69 cm/s. No occlusion or significant stenosis on color flow and spectral Doppler imaging. Normal waveform. Right superficial femoral artery: Peak systolic velocity 64 cm/s. No occlusion or significant stenosis on color flow and spectral Doppler imaging. Normal waveform. Right popliteal artery: Peak systolic velocity 66 cm/s. No occlusion or significant stenosis on color flow and spectral Doppler imaging. Normal waveform. Right calf/foot arteries: Peak systolic velocity noted in the anterior tibial vein at 78 cm/s. No occlusion or significant stenosis on color flow and spectral Doppler imaging. Normal waveform. Right LEXY = 1.23-normal Left common femoral artery: Peak systolic velocity 73 cm/s. No occlusion or significant stenosis on color flow and spectral Doppler imaging. Normal waveform. Left superficial femoral artery: Peak systolic velocity 59 cm/s. No occlusion or significant stenosis on color flow and spectral Doppler imaging. Normal waveform. Left popliteal artery: Peak systolic velocity 67 cm/s. No occlusion or significant stenosis on color flow and spectral Doppler imaging. Normal waveform. Left calf/foot arteries: Peak systolic velocity noted in the dorsalis pedis artery at 98 cm/s. No occlusion or significant stenosis on color flow and spectral Doppler imaging. Normal waveform. Left LEXY = 1.34-normal Soft tissues: No abnormality noted. IMPRESSION: There is no arterial stenosis of either lower extremity. ACT 112: Negative or not required by law. Electronically signed by Marilee Lyon 10-23-2024 5:47 PM
[2024-10-23] MEDS: CARBOHYDRATES FOR HYPOGLYCEMIA PO PRN (18:33)
[2024-10-24] MEDS: traMADol HCL 50 MG TABLET PO PRN (05:45)
--- NOTE | 2024-10-24 08:28 | Hospitalist Progress Note ---
Date of Service October 24, 2024 Assessment & Plan (1) Closed fracture of greater trochanter of left femur: Plan: Postoperative day 3 after cephalomedullary nailing on the left side, clinically stable, pain is better controlled, PT recommended acute rehab. Awaiting placement, otherwise medically stable. (2) Diabetes mellitus type 2, controlled: Plan: Blood sugars are stable [id number], patient had an episode of hypoglycemia overnight, I decided to completely stop Lantus for now. May continue with gabapentin. (3) Chronic venous stasis dermatitis: Plan: His lower extremity erythema and wrinkling are signs of chronic venous stasis, clinically this did not seem to be needing antibiotic. (4) Hypomagnesemia: Plan: Replaced and resolved. Plan Continue adjusting pain control, awaiting placement likely on Saturday. Admission and Anticipated Discharge Date Admission Date: October 21, 2024 Subjective Patient is a very pleasant 74-year-old gentleman with history of diabetes mellitus type 2, hypotension on midodrine who after a fall sustained a left greater trochanteric fracture, patient lives alone and was brought to the hospital, radiographic evaluation was reviewed, patient was seen by orthopedics, taken for surgery on 10/21/2024, he underwent closed reduction and cephalomedull joshua nailing of left hip. This is postoperative day 3, patient is doing well, pain is better controlled after he was started on tramadol scheduled. Patient was seen by PT and acute rehab was recommended. He was seen and examined, he thinks that he is strong enough to go home. In regard to his chronic toe ulcer, patient was seen by podiatry and outpatient follow-up was recommended. Physical Exam Physical Exam: VITALS: Reviewed. WEIGHT/BMI reviewed. GEN: Underweight/frail looking LUNGS: CTAB, no w/r/c. ABD: Soft, NT/ND, NBS, no masses or organomegaly. EXT: No swelling, chronic venous stasis. Results & Data Results & Data Vital Signs (Past 12 Hours) Vital Signs Temp Pulse Resp BP Pulse Ox O2 Del Method 10/24/24 08:01 36.7 C 51 L 18 118/76 96 Room Air 10/23/24 22:34 Nasal Cannula Laboratory Results Laboratory Results - last 24 hr 10/23/24 10/23/24 10/23/24 11:32 16:58 17:06 POC Glucose 155 H 66 L* 65 L* 10/23/24 10/23/24 10/24/24 17:26 19:52 07:34 POC Glucose 97 136 H 131 H Diagnostic Findings Duplex Scan Lower Extremity Artery 10/23/24 14:57 EXAM: US Duplex Bilateral Lower Extremities Arteries INDICATION: Right foot ulcer. TECHNIQUE: Real-time duplex ultrasound scan of the bilateral lower extremity arteries integrating B-mode two-dimensional vascular structure, Doppler spectral analysis and color flow Doppler imaging. COMPARISON: No relevant prior studies available. FINDINGS: Right common femoral artery: Peak systolic velocity 69 cm/s. No occlusion or significant stenosis on color flow and spectral Doppler imaging. Normal waveform. Right superficial femoral artery: Peak systolic velocity 64 cm/s. No occlusion or significant stenosis on color flow and spectral Doppler imaging. Normal waveform. Right popliteal artery: Peak systolic velocity 66 cm/s. No occlusion or significant stenosis on color flow and spectral Doppler imaging. Normal waveform. Right calf/foot arteries: Peak systolic velocity noted in the anterior tibial vein at 78 cm/s. No occlusion or significant stenosis on color flow and spectral Doppler imaging. Normal waveform. Right LEXY = 1.23-normal Left common femoral artery: Peak systolic velocity 73 cm/s. No occlusion or significant stenosis on color flow and spectral Doppler imaging. Normal waveform. Left superficial femoral artery: Peak systolic velocity 59 cm/s. No occlusion or significant stenosis on color flow and spectral Doppler imaging. Normal waveform. Left popliteal artery: Peak systolic velocity 67 cm/s. No occlusion or significant stenosis on color flow and spectral Doppler imaging. Normal waveform. Left calf/foot arteries: Peak systolic velocity noted in the dorsalis pedis artery at 98 cm/s. No occlusion or significant stenosis on color flow and spectral Doppler imaging. Normal waveform. Left LEXY = 1.34-normal Soft tissues: No abnormality noted. IMPRESSION: There is no arterial stenosis of either lower extremity. ACT 112: Negative or not required by law. Electronically signed by Marilee Lyon 10-23-2024 5:47 PM Medications Administered Current Inpatient Medications Acetaminophen (Acetaminophen 325 Mg Tab) 650 mg PO Q6H PRN PRN Reason: pain/fever Stop: 11/20/24 02:35 Last Admin: 10/23/24 05:47 Dose: 650 mg Clobetasol Propionate (Clobetasol Propionate 0.05% Cream 15 Gm Tube) 1 appln TOP BID ISABELL Stop: 11/20/24 08:59 Last Admin: 10/24/24 08:13 Dose: 1 appln Dextrose (Dextrose 50% 50 Ml Syringe) 25 - 50 ml IV UD PRN; Protocol PRN Reason: Hypoglycemia Protocol Stop: 11/20/24 02:35 Gabapentin (Gabapentin 300 Mg Cap) 300 mg PO TID ISABELL Stop: 11/20/24 08:59 Last Admin: 10/24/24 08:12 Dose: 300 mg Glucagon (Glucagon For Inj 1 Mg Vial) 1 mg SQ UD PRN; Protocol PRN Reason: Hypoglycemia Protocol Stop: 11/20/24 02:35 Glucose (Glucose 40% Gel 15 Gm Tube) 15 - 30 gm PO UD PRN; Protocol PRN Reason: Hypoglycemia Protocol Stop: 11/20/24 02:35 Glucose (Glucose 10 Tab/Tube) 4 - 8 tab PO UD PRN; Protocol PRN Reason: Hypoglycemia Protocol Stop: 11/20/24 02:35 Insulin Aspart (Insulin Aspart Per Unit Charge) 0 units SC ACHS [facility] Stop: 11/20/24 16:44 Last Admin: 10/24/24 08:19 Dose: 4 units Insulin Glargine (Lantus Per Unit Charge) 3 units SQ DAILY ISABELL Stop: 11/20/24 08:59 Last Admin: 10/23/24 08:35 Dose: 3 units Levalbuterol HCl (Levalbuterol 1.25 Mg/3 Ml Neb) 1.25 mg NEB Q4H PRN PRN Reason: Shortness Of Breath Or Wheezing Stop: 11/20/24 02:35 Magnesium Oxide (Magnesium Oxide 400 Mg Tab) 400 mg PO TID [facility] Stop: 11/20/24 08:59 Last Admin: 10/24/24 08:12 Dose: 400 mg Midodrine (Midodrine Hcl 2.5 Mg Tab) 5 mg PO TIDM [facility] Stop: 11/20/24 07:59 Last Admin: 10/24/24 08:12 Dose: 5 mg Miscellaneous (Carbohydrates For Hypoglycemia ) 15 - 30 gm PO UD PRN PRN Reason: Hypoglycemia Protocol Stop: 11/20/24 02:35 Last Admin: 10/23/24 18:33 Dose: 15 gm Pantoprazole Sodium (Pantoprazole 40 Mg Tab) 40 mg PO DAILYBB [facility] Stop: 11/20/24 06:29 Last Admin: 10/24/24 05:46 Dose: 40 mg Polyethylene Glycol (Polyethylene (Miralax) 17 Gm Pack) 17 gm PO DAILY PRN PRN Reason: Constipation Stop: 11/20/24 02:35 Potassium Chloride (Potassium Chloride Crtab 20 Meq Tabcr) 20 meq PO Q24H ISABELL Stop: 11/20/24 16:59 Last Admin: 10/23/24 17:14 Dose: 20 meq Tramadol HCl (Tramadol Hcl 50 Mg Tablet) 50 mg PO Q6 PRN PRN Reason: Pain Stop: 11/22/24 11:59 Last Admin: 10/24/24 05:45 Dose: 50 mg Vitamin D (Cholecalciferol 125 Mcg (5,000 Units) Tab) 125 mcg PO HS ISABELL Stop: 11/20/24 20:59 Last Admin: 10/23/24 20:28 Dose: 125 mcg (1) Closed fracture of greater trochanter of left femur Encounter type: initial encounter Fracture alignment: nondisplaced Qualified Code(s): S72.115A - Nondisplaced fracture of greater trochanter of left femur, initial encounter for closed fracture (2) Diabetes mellitus type 2, controlled Diabetes mellitus fci insulin use: with superintendent container terminal use Diabetes mellitus complication status: with neurologic complications Diabetes mellitus complication detail: with polyneuropathy Qualified Code(s): E11.42 - Type 2 diabetes mellitus with diabetic polyneuropathy; Z79.4 - long term care pharmacist (current) use of insulin
--- NOTE | 2024-10-24 08:55 | Discharge Summary ---
Discharge Summary Date of Service October 24, 2024 Principal Dx & Hospital Course #1 = Principal Diagnosis (1) Closed fracture of greater trochanter of left femur: (2) Diabetes mellitus type 2, controlled: (3) Chronic venous stasis dermatitis: (4) Hypomagnesemia: Notes For Next Care Provider Medication Changes From Visit Tramadol 50 mg every 6 hours as needed Admission HPI Per Admitting Provider Patient is a very pleasant 74-year-old gentleman with history of diabetes mellitus type 2, hypotension on midodrine who after a fall sustained a left greater trochanteric fracture, patient lives alone and was brought to the hospital, radiographic evaluation was reviewed, patient was seen by orthopedics, taken for surgery on 10/21/2024, he underwent closed reduction and cephalomedullary nailing of left hip. This is postoperative day 3, patient is doing well, pain is better controlled after he was started on tramadol scheduled. Patient was seen by PT and acute rehab was recommended. He was seen and examined, he thinks that he is strong enough to go home. In regard to his chronic toe ulcer, patient was seen by podiatry and outpatient follow-up was recommended. After patient was seen this morning, later I was notified that his insurance authorization has been received, will proceed with discharging him to rehab. Discharge Exam VITALS: Reviewed. WEIGHT/BMI reviewed. GEN: Underweight/frail looking LUNGS: CTAB, no w/r/c. ABD: Soft, NT/ND, NBS, no masses or organomegaly. EXT: No swelling, chronic venous stasis. Updated Medication List Medication Instructions Recorded Confirmed Type magnesium oxide 400 mg (241.3 mg 400 mg PO TID 04/05/23 10/20/24 History magnesium) tablet cholecalciferol (vitamin D3) 125 125 mcg PO HS 06/18/23 10/20/24 History mcg (5,000 unit) tablet (Vitamin D3) metformin 1,000 mg tablet 1,000 mg PO .DAILY AFTER SUPPER 06/18/23 10/20/24 History potassium chloride 20 mEq 20 meq PO .DAILY AFTER SUPPER 11/09/23 10/20/24 History tablet,extended release(part/cryst) insulin aspart U-100 100 unit/mL 1 sliding scale dose subcut AC 02/21/24 10/20/24 History (3 mL) subcutaneous pen (Novolog FlexPen U-100 Insulin aspart) insulin glargine 100 unit/mL (3 6 unit subcut QAM 02/21/24 10/20/24 History mL) subcutaneous pen (Lantus Solostar U-100 Insulin) pantoprazole 20 mg tablet,delayed 20 mg PO DAILYBB 02/21/24 10/20/24 History release midodrine 5 mg tablet 5 mg PO TID #90 tabs 03/06/24 10/20/24 Rx clobetasol 0.05 % topical cream 1 applic topical UD 10/20/24 10/20/24 History clotrimazole-betamethasone 1 1 applic topical BID 10/20/24 10/20/24 History %-0.05 % topical cream gabapentin 300 mg capsule 300 mg PO TID 10/20/24 10/20/24 History tramadol 50 mg tablet 50 mg PO Q6 PRN pain #30 tabs 10/24/24 Rx Hospital Stay Data Consultations 10/20/24 19:35 ED Decision to Admit Stat 10/21/24 08:00 Consult Orthopedic Surgery Routine 10/22/24 13:36 Consult Podiatry Routine Procedures Performed Operation Date: 10/21/24 07:50 Actual Procedures p Left Trochanteric Nail(Left) - Miguel Tanner DO Diagnostic Imagining Performed 10/20/24 16:30 CT abd pelvis IV con only Stat CT cervical spine wo con Stat CT chest diagnostic w con Stat CT head/brain wo con Stat 10/21/24 FL hip LT 2-3V Routine 10/21/24 08:19 MRI Hip [MR hip LT wo con] Stat 10/23/24 14:57 US arterial duplex LE BI Routine Discharge Instructions Given to Patient (Per Discharging Provider) No further recommendation Total Time Total Time Spent Total Time Spent (In Minutes): More than 35-minute
[2024-10-25 07:50] VITALS: BP 126/88; RESP 18; TEMP 97.5
--- NOTE | 2024-10-25 08:47 | Communication Note ---
Date of Service: October 25, 2024 Patient was seen and examined today, he was initially planned to be discharged yesterday to rehab however patient refused the idea, we asked family to in tervene and eventually after input from physical therapy, case management and his family, he agreed on going to the rehab. He was seen and examined today, he is otherwise stable, he can be sent.
[2024-10-25] MEDS: INFLUENZA VACC TS2024-25(65y+)/PF (IIV3) 0.5mL Syr IM ONE (11:07)
[2024-10-25 11:15] VITALS: PULSE 81
[2024-10-25 15:16] VITALS: O2SAT 98
== END 2024-10-25 11:42 | DRG 481 ==
LOC: ED 15:42 → 3N 10-21 00:26
DX: E83.42 Hypomagnesemia; Y92.009 Unspecified place in unspecified non-institutional (private) residence as the place of occurrence of the external cause; S72.112A Displaced fracture of greater trochanter of left femur, initial encounter for closed fracture; E11.42 Type 2 diabetes mellitus with diabetic polyneuropathy; I87.2 Venous insufficiency (chronic) (peripheral); W18.30XA Fall on same level, unspecified, initial encounter; J44.9 Chronic obstructive pulmonary disease, unspecified; I10 Essential (primary) hypertension; G62.9 Polyneuropathy, unspecified; K21.9 Gastro-esophageal reflux disease without esophagitis; N40.1 Benign prostatic hyperplasia with lower urinary tract symptoms; F17.210 Nicotine dependence, cigarettes, uncomplicated; E55.9 Vitamin D deficiency, unspecified; B37.81 Candidal esophagitis; E11.621 Type 2 diabetes mellitus with foot ulcer; N17.9 Acute kidney failure, unspecified; Z79.84 Long term (current) use of oral hypoglycemic drugs; E11.22 Type 2 diabetes mellitus with diabetic chronic kidney disease; L97.512 Non-pressure chronic ulcer of other part of right foot with fat layer exposed; Z79.4 Long term (current) use of insulin; Z60.2 Problems related to living alone

== ENCOUNTER 2024-11-21 13:10 | Inpatient (IN) ==
--- OUTSIDE RECORDS SUMMARY | 2024-11-21 13:14 | External Medical Summary ---
Author Name Unknown Address Unknown Organization [id number]:LABORATORY [facility] [place] - [address] [place] [address] Laboratory Report Ordering Provider Test Date Status ANAHY GOODE 11/16/2024 05:24:00 Final Observation Date Value Abnormality Reference (Units ) Status Erythrocyte sedimentation rate by Photometric method 11/16/2024 05:24:00 26 Above high normal <20 (mm/hour) Final Performing Location LABORATORY [facility] - [address] [place] [id number]
--- OUTSIDE RECORDS SUMMARY | 2024-11-21 13:14 | External Medical Summary ---
Author Name Unknown Address Unknown Organization [id number][facility] [address] [place] [address] Laboratory Report Ordering Provider Test Date Status ANAHY GOODE 11/09/2024 05:22:00 Final Observation Date Value Abnormality Reference (Units ) Status WBC, Total 11/09/2024 05:22:00 12.39 Above high normal 4 .00-10.80 (K/uL) Final RBC 11/09/2024 05:22:00 3.75 4.50-5.25 (M/uL) Final Hemoglobin 11/09/2024 05:22:00 11.5 Below low normal 14 .0-16.8 (g/dL) Final HCT 11/09/2024 05:22:00 35.5 Below low normal 40. 0-48.4 (%) Final MCV 11/09/2024 05:22:00 94.7 82.0-99.5 (fL) Final MCH 11/09/2024 05:22:00 30.7 27.0-34.0 (pg) Final MCHC 11/09/2024 05:22:00 32.4 32.0-36.0 (g/dL) Final RDW 11/09/2024 05:22:00 14.4 11.5-15.5 (%) Final Platelets 11/09/2024 05:22:00 430 Above high normal 14 0-400 (K/uL) Final MPV 11/09/2024 05:22:00 8.7 6.6-11.1 ( fL) Final Performing Location [facility] [facility] [address] [place] [address]
--- OUTSIDE RECORDS SUMMARY | 2024-11-21 13:14 | External Medical Summary ---
Author Name Unknown Address Unknown Organization [id number]:LAB[facility]ATORY [facility] [place] - [address] [place] [address] Laboratory Report Ordering Provider Test Date Status RUSSELANAHY 11/09/2024 05:22:00 Final Observation Date Value Abnormality Reference (Units ) Status Erythrocyte sedimentation rate by Photometric method 11/09/2024 05:22:00 32 Above high normal <20 (mm/hour) Final Performing Location LAB[facility]ATORY [facility] - [address] [place] [address]
--- OUTSIDE RECORDS SUMMARY | 2024-11-21 13:14 | External Medical Summary ---
Author Name Unknown Address Unknown Organization [id number]:[facility] [address] - [address] [place] [address] Laboratory Report Ordering Provider Test Date Status ANAHY GOODE 11/09/2024 05:22:00 Final Observation Date Value Abnormality Reference (Units ) Status BUN 11/09/2024 05:22:00 41 Above high normal 6-20 (mg/dL) Final Creatinine 11/09/2024 05:22:00 1.3 Above high normal 0.6-1.2 (mg/dL) Final Glomerular filtration rate/1.73 sq M.predicted [Volume Rate/Area] in Serum, Plasma or Blood by Creatinine-based formula (CKD-EPI) 11/09/2024 05:22:00 59 Below low normal >=60 (mL/min) Final eGFR is calculated based on the CKD-EPI 2020 equation. Sodium 11/09/2024 05:22:00 140 135-146 (m mol/L) Final Potassium 11/09/2024 05:22:00 4.8 3.5-5.1 (m mol/L) Final Cl 11/09/2024 05:22:00 106 98-107 (mm ol/L) Final CO2 11/09/2024 05:22:00 23 22-32 (mmo l/L) Final Anion gap 11/09/2024 05:22:00 11 7-15 (mmol /L) Final Glucose 11/09/2024 05:22:00 75 70-120 (mg /dL) Final Albumin 11/09/2024 05:22:00 3.2 Below low normal 3.8 -5.0 (g/dL) Final AST (Aspartate aminotransferase) 11/09/2024 05:22:00 32 10-50 (U/L) Fin al Alk Phos 11/09/2024 05:22:00 450 Above high normal 35 -130 (U/L) Final Bilirubin, Total 11/09/2024 05:22:00 0.7 <=1 .2 (mg/dL) Final Calcium 11/09/2024 05:22:00 8.8 8.4-10.2 ( mg/dL) Final Protein 11/09/2024 05:22:00 6.3 6.0-8.3 (g /dL) Final ALT (Alanine aminotransferase) 11/09/2024 05:22:00 20 10-50 (U/L) Jose Eduardo cardenas Performing Location LABORATORY [facility] [address] [facility] [id number]
--- OUTSIDE RECORDS SUMMARY | 2024-11-21 13:14 | External Medical Summary | Summary of Care ---
Author Name Unknown Organization [facility] Address [address] [facility] [address] Phone [phone] Care Team Providers Care Parking Lot Signaler Name Role Phone Eve Soni MD Primary Care Provider [phone] Encounter Details Date Type Department Care Team (Late st Contact Info) Description 11/16/2024 Orders Only Lab Mobile Phlebotomy [facility] [address] [place] [address] Eve Soni MD [address] [place] [address] DR [place] [address] Anemia*; HLD (hyperlipidemia) Allergies No known active allergiesdocumented as of this encounter (statuses as of 11/16/2024) Medications metFORMIN HCl 500 MG Oral Tablet [...] empty stomach 90 Tablet 07/13/20 24 Active Clobetasol Propionate 0.05 % External Cream (Temovate) apply sparingly to affected areas twice a day x two weeks on and two weeks off 135 g 4 3:40 PM EST 09/21/20 24 Active Clotrimazole-Bet amethasone 1-0.05 % External Cream (Lotrisone) apply cream to skin of twice a day to affected area two weeks per month 135 g 4 3:40 PM EST 09/21/20 24 Active Gabapentin 300 MG Oral Capsule (Neurontin) take 1 capsule by mouth three times per day 270 Capsule 4 5:54 PM EST 09/21/20 24 Active Potassium Chloride [place] [facility] 20 MEQ Oral Tablet Extended Release take 1 tablet by mouth after supper 90 Tablet 4 5:54 PM EST 09/21/20 24 Active Hospital, Clinic, or Other Facility Administered Medication Ordered Dose Route Frequency Start Date End Date Status bevaCIZumab (Avastin) inj 1.25 mgIndications:Choroidal neovascular membrane, left 1.25 mg IZ PRN 08/21/2024 5 Active ROPivacaine (Naropin) inj 1.5 mgIndications:Choroidal neovascular membrane, left 1.5 mg IJ PRN 08/21/2024 Active documented as of this encounter (statuses as of 11/16/2024) Active Problems Problem Noted Date Diagnosed Date Visual distortions of shape and size 06/19/2023 documented as of this encounter (statuses as of 11/16/2024) Social History Tobacco Use Types Packs/Day Years [...] Care Team (Late st Contact Info) Description 11/16/2024 5:20 AM EST Laboratory Lab Mobile Phlebotomy [facility] [address] [facility] [place] [address] [place] [address] Arrived 01/04/2025 8:15 AM EDT Office Visit Ophthalmology, [facility] [address] [facility] [place] [address] Hernando Sun DO [address] [place] [address] Scheduled Orders Name Type Priority Associated Diagnoses Orde r Schedule CBC Lab Routine Anemia HLD (hyperlipidemia) Expected: 11/16/2024, Expires: 11/16/2025 COMPREHENSIVE METABOLIC PANEL Lab Routine Anemia HLD (hyperlipidemia) Expected: 11/16/2024, Expires: 11/16/2025 ERYTHROCYTE SEDIMENTATION RATE (ESR) Lab Routine Anemia HLD (hyperlipidemia) Expected: 11/16/2024, Expires: 11/16/2025 Health Maintenance Due Date Last Done Comments Depression Screening 1962 Hepatitis C Screening 1968 DTap/Tdap Vaccines (1 - Tdap) 01/14/1968 Pneumococcal Vaccine: 50+ Years (1 of 2 - PCV) 01/14/1968 Zoster Vaccines (1 of 2) 01/14/1968 [...] as of this encounter Visit Diagnoses Diagnosis Anemia- Primary Anemia, unspecified HLD (hyperlipidemia) Other and unspecified hyperlipidemia documented in this encounter Care Teams Parking Lot Signaler Relationship Specialty Start Date End Date Eve Soni MD [address] [place] [address] [place] [address] PCP - General 05/31/09 documented as of this encounter
--- OUTSIDE RECORDS SUMMARY | 2024-11-21 13:14 | External Medical Summary | Summary of Care ---
Author Name Unknown Organization [facility] Address [address] [facility] [place] [address] Phone [phone] Care Team Providers Care Tufter Hand Name Role Phone Eve Soni MD Primary Care Provider +1 [phone] Encounter Details Date Type Department Care Team (Late st Contact Info) Description 11/09/2024 Orders Only Lab Mobile Phlebotomy [facility] [address] [place] [address] Eve Soni MD [address] [place] [address] DR [place] [address] Vitamin D deficiency* Allergies No known active allergiesdocumented as of this encounter (statuses as of 11/09/2024) Medications metFORMIN HCl 500 MG Oral Tablet [...] as of this encounter (statuses as of 11/09/2024) Active Problems Problem Noted Date Diagnosed Date Visual distortions of shape and size 06/19/2023 documented as of this encounter (statuses as of 11/09/2024) Social History Tobacco Use Types Packs/Day Years [...] Care Team (Late st Contact Info) Description 11/09/2024 5:20 AM EST Laboratory Lab Mobile Phlebotomy [facility] [address] [facility] [place] [address] [place] [address] Arrived 11/16/2024 2:30 PM EST Office Visit Ophthalmology, [facility] [address] [facility] [place] [address] Hernando Sun DO [address] [place] [address] Scheduled Orders Name Type Priority Associated Diagnoses Orde r Schedule CBC Lab Routine Vitamin D deficiency Expected: 11/09/2024, Expires: 11/09/2025 COMPREHENSIVE METABOLIC PANEL Lab Routine Vitamin D deficiency Expected: 11/09/2024, Expires: 11/09/2025 MAGNESIUM Lab Routine Vitamin D deficiency Expected: 11/09/2024, Expires: 11/09/2025 ERYTHROCYTE SEDIMENTATION RATE (ESR) Lab Routine Vitamin D deficiency Expected: 11/09/2024, Expires: 11/09/2025 Health Maintenance Due Date Last Done Comments [...] as of this encounter Visit Diagnoses Diagnosis Vitamin D deficiency- Primary Unspecified vitamin D deficiency documented in this encounter Care Teams Tufter Hand Relationship Specialty Start Date End Date Eve Soni MD [address] [place] [address] [place] [address] PCP - General 05/31/09 documented as of this encounter
--- OUTSIDE RECORDS SUMMARY | 2024-11-21 13:14 | External Medical Summary ---
Author Name Unknown Address Unknown Organization [id number]:[facility] [address] [place] [address] Laboratory Report Ordering Provider Test Date Status ANAHY GOODE 11/16/2024 05:24:00 Final Observation Date Value Abnormality Reference (Units ) Status BUN 11/16/2024 05:24:00 41 Above high normal 6-20 (mg/dL) Final Creatinine 11/16/2024 05:24:00 1.2 0.6-1.2 (mg/dL) Final Glomerular filtration rate/1.73 sq M.predicted [Volume Rate/Area] in Serum, Plasma or Blood by Creatinine-based formula (CKD-EPI) 11/16/2024 05:24:00 63 >=60 (mL/min) Final eGFR is calculated based on the CKD-EPI 2020 equation. Sodium 11/16/2024 05:24:00 139 135-146 (m mol/L) Final Potassium 11/16/2024 05:24:00 4.8 3.5-5.1 (m mol/L) Final Cl 11/16/2024 05:24:00 105 98-107 (mm ol/L) Final CO2 11/16/2024 05:24:00 22 22-32 (mmo l/L) Final Anion gap 11/16/2024 05:24:00 12 7-15 (mmol /L) Final Glucose 11/16/2024 05:24:00 39 Below lower panic li mits 70-120 (mg/dL) Final Results rechecked Albumin 11/16/2024 05:24:00 3.1 Below low normal 3.8 -5.0 (g/dL) Final AST (Aspartate aminotransferase) 11/16/2024 05:24:00 34 10-50 (U/L) Fin al Alk Phos 11/16/2024 05:24:00 387 Above high normal 35 -130 (U/L) Final Bilirubin, Total 11/16/2024 05:24:00 0.5 <=1 .2 (mg/dL) Final Calcium 11/16/2024 05:24:00 8.5 8.4-10.2 ( mg/dL) Final Protein 11/16/2024 05:24:00 6.0 6.0-8.3 (g /dL) Final ALT (Alanine aminotransferase) 11/16/2024 05:24:00 20 10-50 (U/L) Jose Eduardo cardenas Performing Location [facility] [address] [facility] [address]
--- OUTSIDE RECORDS SUMMARY | 2024-11-21 13:14 | External Medical Summary ---
Author Name Unknown Address Unknown Organization [facility] [address] - [address] [place] [address] Laboratory Report Ordering Provider Test Date Status ANAHY GOODE 11/16/2024 05:24:00 Final Observation Date Value Abnormality Reference (Units ) Status WBC, Total 11/16/2024 05:24:00 10.94 Above high normal 4 .00-10.80 (K/uL) Final RBC 11/16/2024 05:24:00 3.63 4.50-5.25 (M/uL) Final Hemoglobin 11/16/2024 05:24:00 11.2 Below low normal 14 .0-16.8 (g/dL) Final HCT 11/16/2024 05:24:00 34.9 Below low normal 40. 0-48.4 (%) Final MCV 11/16/2024 05:24:00 96.1 82.0-99.5 (fL) Final MCH 11/16/2024 05:24:00 30.9 27.0-34.0 (pg) Final MCHC 11/16/2024 05:24:00 32.1 32.0-36.0 (g/dL) Final RDW 11/16/2024 05:24:00 14.0 11.5-15.5 (%) Final Platelets 11/16/2024 05:24:00 386 140-400 (K /uL) Final MPV 11/16/2024 05:24:00 9.1 6.6-11.1 ( fL) Final Performing Location LABORATORY [facility] [address] [place] [address]
--- OUTSIDE RECORDS SUMMARY | 2024-11-21 13:14 | External Medical Summary ---
Author Name Unknown Address Unknown Organization [id number]:[facility]AT[facility] - [address] [place] [address] Laboratory Report Ordering Provider Test Date Status RUSSELANAHY 11/09/2024 05:22:00 Final Observation Date Value Abnormality Reference (Units ) Status Magnesium 11/09/2024 05:22:00 2.1 1.5-2.6 (m g/dL) Final Performing Location [facility] - [address] [place] [address]
--- OUTSIDE RECORDS SUMMARY | 2024-11-21 13:15 | External Medical Summary | Summary of Care ---
Author Name Unknown Organization [facility] Address [address] [facility] [place] [address] Phone [phone] Care Team Providers Care Dredge Operator Name Role Phone Eve Soni MD Primary Care Provider [phone] [phone] Encounter Details Date Type Department Care Team (Late st Contact Info) Description 11/02/2024 Population Health External Data Unspecified Department Allergies No known active allergiesdocumented as of this encounter (statuses as of 11/02/2024) Medications metFORMIN HCl 500 MG Oral Tablet [...] as of this encounter (statuses as of 11/02/2024) Active Problems Problem Noted Date Diagnosed Date Visual distortions of shape and size 06/19/2023 documented as of this encounter (statuses as of 11/02/2024) Social History Tobacco Use Types Packs/Day Years [...] Team (Late st Contact Info) Description 11/16/2024 2:30 PM EST Office Visit Ophthalmology, [facility] [address] [place] [address] Hernando Sun DO [address] [place] [address] Health Maintenance Due Date Last Done Comments [...] filedocumented as of this encounter Care Teams Dredge Operator Relationship Specialty Start Date End Date Eve Soni MD [address] [place], [place] [address] [address] PCP - General 05/31/09 documented as of this encounter
--- OUTSIDE RECORDS SUMMARY | 2024-11-21 13:15 | External Medical Summary | Summary of Care ---
Author Name Unknown Organization [facility] Address [address] [facility] [place] [address] Phone [phone] Care Team Providers Care Rope Laying Machine Operator Name Role Phone Eve Soni MD Primary Care Provider [phone] [phone] Encounter Details Date Type Department Care Team (Late st Contact Info) Description 10/29/2024 Population Health External Data Unspecified Department Allergies No known active allergiesdocumented as of this encounter (statuses as of 10/29/2024) Medications metFORMIN HCl 500 MG Oral Tablet [...] as of this encounter (statuses as of 10/29/2024) Active Problems Problem Noted Date Diagnosed Date Visual distortions of shape and size 06/19/2023 documented as of this encounter (statuses as of 10/29/2024) Social History Tobacco Use Types Packs/Day Years [...] 11/16/2024 2:30 PM EST Office Visit Ophthalmology, [facility] [address] [place] [address] Hernando Sun DO [address] [place] [address] Health Maintenance Due Date Last Done Comments [...] filedocumented as of this encounter Care Teams Rope Laying Machine Operator Relationship Specialty Start Date End Date Eve Soni MD [address] [place], [place] [address] [address] PCP - General 05/31/09 documented as of this encounter
--- OUTSIDE RECORDS SUMMARY | 2024-11-21 13:15 | External Medical Summary ---
Author Name Unknown Address Unknown [facility] - [address] [place] [address] Laboratory Report Ordering Provider Test Date Status ANAHY GOODE 11/02/2024 05:16:00 Final Observation Date Value Abnormality Reference (Units ) Status WBC, Total 11/02/2024 05:16:00 11.51 Above high normal 4 .00-10.80 (K/uL) Final RBC 11/02/2024 05:16:00 3.38 4.50-5.25 (M/uL) Final Hemoglobin 11/02/2024 05:16:00 10.6 Below low normal 14 .0-16.8 (g/dL) Final HCT 11/02/2024 05:16:00 31.8 Below low normal 40. 0-48.4 (%) Final MCV 11/02/2024 05:16:00 94.1 82.0-99.5 (fL) Final MCH 11/02/2024 05:16:00 31.4 27.0-34.0 (pg) Final MCHC 11/02/2024 05:16:00 33.3 32.0-36.0 (g/dL) Final RDW 11/02/2024 05:16:00 13.8 11.5-15.5 (%) Final Platelets 11/02/2024 05:16:00 347 140-400 (K /uL) Final MPV 11/02/2024 05:16:00 8.8 6.6-11.1 ( fL) Final [facility] [place] [address]
--- OUTSIDE RECORDS SUMMARY | 2024-11-21 13:15 | External Medical Summary | Summary of Care ---
Author Name Unknown Organization [facility] Address [address] [facility] [address] Phone [phone] Care Team Providers Care Telescope Operator Name Role Phone Eve Soni MD Primary Care Provider [phone] [phone] Encounter Details Date Type Department Care Team (Late st Contact Info) Description 11/02/2024 Orders Only Lab Mobile Phlebotomy [facility] [address] [place] [address] Eve Soni MD [address] [place] [address] DR J[place]ON [place] [address] Vitamin D deficiency, unspecified*; Hypopotassemia Allergies No known active allergiesdocumented as of [...] Team (Late st Contact Info) Description 11/02/2024 5:20 AM EST Laboratory Lab Mobile Phlebotomy [facility] [address] [facility] [place] [address] [place] [address] Arrived 11/16/2024 2:30 PM EST Office Visit Ophthalmology, [facility] 132 [facility] [place] [address] Hernando Sun DO [address] [facility] [place] [address] Scheduled Orders Name Type Priority Associated Diagnoses Orde r Schedule CBC Lab Routine Vitamin D deficiency, unspecified Hypopotassemia Expected: 11/02/2024, Expires: 11/02/2025 COMPREHENSIVE METABOLIC PANEL Lab Routine Vitamin D deficiency, unspecified Hypopotassemia Expected: 11/02/2024, Expires: 11/02/2025 25-HYDROXY VITAMIN D Lab Routine Vitamin D deficiency, unspecified Hypopotassemia Expected: 11/02/2024, Expires: 11/02/2025 Health Maintenance Due Date Last Done Comments [...] this encounter Visit Diagnoses Diagnosis Vitamin D deficiency, unspecified- Primary Hypopotassemia documented in this encounter Care Teams Telescope Operator Relationship Specialty Start Date End Date Eve Soni MD [address] [place] [address] [place] [address] PCP - General 05/31/09 documented as of this encounter
--- OUTSIDE RECORDS SUMMARY | 2024-11-21 13:15 | External Medical Summary ---
Author Name Unknown Address Unknown Organization K01:[facility] [address] [place] [address] Laboratory Report Ordering Provider Test Date Status ANAHY GOODE 11/02/2024 05:16:00 Final Deficient: <20 ng/mL
Ins ufficient: 20-29 ng/mL
Recommended/Optimum:30-50 ng/mL

Vitamin D intoxication is rare. If suspicious of Vitamin D toxicity, evaluation of serum Calcium and PTH is recommended. Observation Date Value Abnormality Reference (Units ) Status 25-OH Vitamin D total 11/02/2024 05:16:00 25 >19 (ng/mL) Final Performing Location LAB[facility]ATORY [facility] - [address] [place] [address]
--- OUTSIDE RECORDS SUMMARY | 2024-11-21 13:15 | External Medical Summary ---
Author Name Unknown Address Unknown Organization [facility] [address] - [address] [place] [address] Laboratory Report Ordering Provider Test Date Status ANAHY GOODE 11/02/2024 05:16:00 Final Observation Date Value Abnormality Reference (Units ) Status BUN 11/02/2024 05:16:00 39 Above high normal 6-20 (mg/dL) Final Creatinine 11/02/2024 05:16:00 1.2 0.6-1.2 (mg/dL) Final Glomerular filtration rate/1.73 sq M.predicted [Volume Rate/Area] in Serum, Plasma or Blood by Creatinine-based formula (CKD-EPI) 11/02/2024 05:16:00 61 >=60 (mL/min) Final eGFR is calculated based on the CKD-EPI 2020 equation. Sodium 11/02/2024 05:16:00 136 135-146 (m mol/L) Final Potassium 11/02/2024 05:16:00 4.8 3.5-5.1 (m mol/L) Final Cl 11/02/2024 05:16:00 102 98-107 (mm ol/L) Final CO2 11/02/2024 05:16:00 23 22-32 (mmo l/L) Final Anion gap 11/02/2024 05:16:00 11 7-15 (mmol /L) Final Glucose 11/02/2024 05:16:00 134 Above high normal 70 -120 (mg/dL) Final Albumin 11/02/2024 05:16:00 3.0 Below low normal 3.8 -5.0 (g/dL) Final AST (Aspartate aminotransferase) 11/02/2024 05:16:00 46 10-50 (U/L) Fin al Alk Phos 11/02/2024 05:16:00 473 Above high normal 35 -130 (U/L) Final Bilirubin, Total 11/02/2024 05:16:00 0.7 <=1 .2 (mg/dL) Final Calcium 11/02/2024 05:16:00 8.7 8.4-10.2 ( mg/dL) Final Protein 11/02/2024 05:16:00 5.8 Below low normal 6.0 -8.3 (g/dL) Final ALT (Alanine aminotransferase) 11/02/2024 05:16:00 23 10-50 (U/L) Jose Eduardo cardenas Performing Location LAB[facility]ATORY [facility] [address] [facility] [address]
[2024-11-21] MEDS: MoRPHine SULFATE 4 MG/ML 1 ML CARP\\VIAL IV STA (13:57)
[2024-11-21] MEDS: ONDANSETRON INJ 2 MG/ML 2 ML VIAL IV STA (13:57)
[2024-11-21] MEDS: ACETAMINOPHEN 1,000 MG/100 ML VIAL IV STA (13:58)
[2024-11-21 14:09] LABS: Hematocrit (blood only) 36.2 % (42.0-52.0); Hemoglobin 11.9 g/dl (14.0-18.0); Mean Corpuscular Hemoglobin 30.7 pg (25.0-34.0); Mean Corpuscular Hgb Conc 32.9 g/dL (32.0-36.0); Mean Corpuscular Volume 93.5 fL (80.0-100.0); Mean Platelet Volume 8.5 fL (9.4-12.4); Platelet Count 297 K/uL (130-400); RDW Standard Deviation 47.7 fL (36.4-46.3); Red Blood Count 3.87 M/uL (4.70-6.10); White Blood Count 11.38 K/ul (4.8-10.8)
[2024-11-21 14:23] LABS: Partial Thromboplastin Time 26 Seconds (21-31); Prothrombin Time 11.2 Seconds (9.0-12.0)
--- NOTE | 2024-11-21 14:30 | XRay Report ---
EXAM: Radiographs of the Right Hip 3 Views INDICATION: Trauma. TECHNIQUE: Front view pelvis and AP and frog leg lateral views of the right hip. COMPARISON: No relevant prior studies available. FINDINGS: Limitations: None. Bones/joints: There is an acute minimally comminuted intertrochanteric fracture of the right femur without significant angulation. No dislocation. Visualized portion of left proximal femoral nail and locking bolt well-seated and intact. Soft tissues: No abnormality noted. No radiopaque foreign body noted. Gastrointestinal tract: Moderate amounts of stool noted in the visualized colonic segments. IMPRESSION: Acute intertrochanteric fracture of the right femur. ACT 112: Negative or not required by law. Electronically signed by Marilee Lyon 11-21-2024 2:30 PM
--- NOTE | 2024-11-21 14:30 | XRay Report ---
EXAM: Radiograph of the Chest 1 View INDICATION: Traumatic hip fracture. TECHNIQUE: Frontal view of the chest. COMPARISON: No relevant prior studies available. FINDINGS: Lungs and pleural spaces: Prominent interstitial markings identified with relative paucity of vasculature in the upper lobes right greater than left typical of bullous change. No consolidation or pulmonary edema. No pleural effusion or pneumothorax. Heart: Shape and configuration within normal limits allowing for technique. Mediastinum: Normal contour. Bones/joints: No visible acute fracture. Soft tissues: No abnormality noted. No radiopaque foreign body noted. Vasculature: Ectatic aorta with moderate arch calcification. Upper abdomen: No abnormality noted. IMPRESSION: Chronic obstructive changes and interstitial thickening likely chronic. No acute abnormality. ACT 112: Negative or not required by law. Electronically signed by Marilee Lyon 11-21-2024 2:30 PM
[2024-11-21 14:31] LABS: Albumin Level 3.6 gm/dl (3.4-5.0); Bilirubin,Total 0.6 mg/dl (0.2-1.0); Calcium 8.8 mg/dl (8.6-10.3); Potassium 4.5 mmol/L (3.5-5.1)
[2024-11-21 14:37] LABS: Albumin Globulin Ratio 0.9 (0.9-2); Creatinine Clr Calc Pharmacy 39.2 ml/min; Globulin 3.8 gm/dl (2.5-4.0); Total Protein 7.4 gm/dl (6.0-8.3)
--- NOTE | 2024-11-21 14:44 | Emergency Department Note ---
Impression & Plan Fracture of right hip, Fall, Anticoagulated, Anemia ED Provider Note NAME: JENSEN CHAPMAN AGE: 74 SEX: M : 1950 ARRIVES VIA: Ambulance INFORMANT: [Patient][ems, nursing] ED PROVIDER(S): [Norris Mancini MD] CHIEF COMPLAINT: Fall HISTORY OF PRESENT ILLNESS: The patient is a 74-year-old male who presents with a ground-level fall and complains of right hip pain. He is by report on Lovenox. The patient denies any loss of consciousness, head injury, he denies any neck pain or back pain or chest pain. He is not short of breath. He complains only of pain in the area of the right hip. PMHx/PSHx/Social Hx: See Below PHYSICAL EXAM: Primary Survey Airway: Intact Breathing: Breath sounds equal bilaterally. No respiratory distress Circulation: Skin warm, capillary refill less than 2 seconds Disability: Pupils equal and reactive to light Motor Function: Moves all extremities. Sensory: No deficits Secondary Survey GEN: Fairly thin and frail appearing HEAD: Normocephalic, atraumatic EYES: Pupils round and reactive to light, conjunctiva clear, extraocular movements intact ENT: No fluid in external acoustic canals, nares patent, oropharynx clear NECK: Midline trachea, no cervical spine tenderness HEART: Regular rate and rhythm LUNGS: Clear to auscultation bilaterally CHEST: Chest wall non-tender, no bruising/deformity ABD: No contusions, soft, non-tender, no distention PELVIS: Stable to rock BACK: No step offs or deformities, T-L spine non tender EXT: There is external rotation and some subtle shortening of the right lower extremity. He is tender in the area of the right hip. There is a bandage on the right foot. NEURO: Awake and alert, no focal motor deficits. DIFFERENTIAL DIAGNOSIS: Intracranial bleeding, C-spine injury, chest or abdominal trauma, hip fracture, among others. EMERGENCY DEPARTMENT PROCEDURES: MEDICAL DECISION MAKING: There is a slight leukocytosis, this could be consistent with infection or just the stress from today's fall. The patient was anemic but this appears chronic when looking back at previous testing. There was a normal platelet count. No elevation to the INR or PTT. There was some subtle renal insufficiency but looking back at previous testing, this has been documented before. No electrolyte abnormality in need of emergent correction. Alk phos was elevated however the remaining liver enzymes were unremarkable. Chest x-ray shows some chronic change, I did not find any evidence for pneumonia or for rib injury. Brain CT showed no acute bleed or mass effect. C-spine CT showed no acute fracture. Pelvis and right hip films show a right intratrochanteric hip fracture. On exam, the patient complained of right hip pain. There was no evidence for right lower extremity neurovascular compromise. Patient was given IV morphine for pain, he received IV Zofran for nausea. He received IV Tylenol for pain. I did speak to the patient about his findings. I did speak with case management as well as the on-call hospitalist. I spoke with on-call orthopedics. Patient is being admitted, he will require orthopedic intervention. Unfortunately, his fall did result in a right hip fracture. This was the only significant injury found by workup or exam. Prior/Outside records/notes reviewed: Today's EMS notes describing his presentation and transport to this hospital. ECG per my interpretation: Indication was fall. The ECG shows what appears to be a sinus rhythm with an occasional PVC. The rate is 72. There is no acute ST elevation. The QTc is 448. Continuous Cardiac Monitoring per my interpretation: An order was placed for continuous cardiac monitoring. The monitor shows a rate of 67 with normal sinus rhythm. Imaging/x-ray results per my interpretation: Chest x-ray shows some chronic change, no pneumonia or pneumothorax. Pelvis and right hip films show a right intertrochanteric hip fracture. Chronic Medical/Social conditions affecting care: Advanced age, Lovenox use. Care/Management discussed with: Case management, the on-call hospitalist. Orthopedics-Dr. Smith Level of care consideration(s): After review of the information above and other included data: --I believe the patient requires escalation of care to admission DISPOSITION: Admission Past Med/Surg History Problem List (Updated 11/21/24 @ 17:25 by Norris Mancini MD) Anemia (Acute) Anticoagulated (Acute) Fall (Acute) Fracture of right hip (Acute) Intertrochanteric fracture of right femur Chronic ulcer of right foot with fat layer exposed Hypomagnesemia Intertrochanteric fracture of left hip Chronic venous stasis dermatitis Diabetes mellitus type 2, controlled Closed fracture of greater trochanter of left femur (Acute) Fall from standing (Acute) Rhabdomyolysis (Acute) Dermatitis of lower extremity GERD (gastroesophageal reflux disease) Alcohol intoxication Closed T12 fracture Fall (Acute) Hypoxia (Acute) Pneumonia Hypomagnesemia (Acute) Leukocytosis (Acute) Elevated lactic acid level (Acute) CARLO (acute kidney injury) (Acute) Acute hypotension (Acute) Hypoxia (Acute) Metabolic encephalopathy Exposure to body fluid Cellulitis (Acute) Fecal soiling due to fecal incontinence Acute dehydration (Acute) Acute hypotension (Acute) Acute UTI (Acute) Encounter for pre-operative examination Right nephrolithiasis Weakness Low blood pressure DM2 (diabetes mellitus, type 2) GERD (gastroesophageal reflux disease) Esophageal candidiasis Urinary retention Phimosis Hydronephrosis, right Medical History Hypomagnesemia 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 Diabetes mellitus, type 2 Cataract upcoming surgery for correction Low blood pressure On Midodrine Chronic obstructive pulmonary disease Surgical History History of esophagogastroduodenoscopy (EGD) History of colonoscopy History of tooth extraction Family History Other No family history of adverse response to anesthesia Social History Smoking Status: Current every day smoker Tobacco Type: Cigarettes Cigarettes Per Day: 20; Second Hand Exposure: No; Do You Dip or Chew Tobacco: No; Hx Alcohol Use: No Hx Substance Use: No Preferred Language: Montenegrin Communication Ability: Effective Behavioral Therapy Coordinator Required: No Beliefs That Will Affect Care: None Current Living Situation: Alone Current Living Situation Comment: son lives down the road Feels Safe at Home: Yes Assistive Devices: Walker Allergies Allergies Allergy/AdvReac Type Severity Reaction Status Date / Time No Known Allergies Allergy Verified 02/28/24 17:00 Home Meds Home Medications Medication Instructions Recorded Confirmed magnesium oxide 400 mg (241.3 mg 400 mg PO TID 04/05/23 10/20/24 magnesium) tablet cholecalciferol (vitamin D3) 125 125 mcg PO HS 06/18/23 10/20/24 mcg (5,000 unit) tablet (Vitamin D3) metformin 1,000 mg tablet 1,000 mg PO .DAILY AFTER SUPPER 06/18/23 10/20/24 potassium chloride 20 mEq 20 meq PO .DAILY AFTER SUPPER 11/09/23 10/20/24 tablet,extended release(part/cryst) insulin aspart U-100 100 unit/mL 1 sliding scale dose subcut AC 02/21/24 10/20/24 (3 mL) subcutaneous pen (Novolog FlexPen U-100 Insulin aspart) insulin glargine 100 unit/mL (3 6 unit subcut QAM 02/21/24 10/20/24 mL) subcutaneous pen (Lantus Solostar U-100 Insulin) pantoprazole 20 mg tablet,delayed 20 mg PO DAILYBB 02/21/24 10/20/24 release clobetasol 0.05 % topical cream 1 applic topical UD 10/20/24 10/20/24 clotrimazole-betamethasone 1 1 applic topical BID 10/20/24 10/20/24 %-0.05 % topical cream gabapentin 300 mg capsule 300 mg PO TID 10/20/24 10/20/24 Previous Rx's Medication Instructions Recorded midodrine 5 mg tablet 5 mg PO TID #90 tabs 03/06/24 tramadol 50 mg tablet 50 mg PO Q6 PRN pain #30 tabs 10/24/24 enoxaparin 40 mg/0.4 mL 40 mg (0.4 mL) subcut DAILY 30 10/25/24 subcutaneous syringe (Lovenox) days #12 mL Results & Data (ED) Vital Signs Vital Signs - 24 hr 11/21/24 13:16 11/21/24 13:30 11/21/24 14:39 Temperature 36.5 C Temperature Source Oral Pulse Rate 75 71 Pulse Rate [Apical] 67 Respiratory Rate 14 18 Respiratory Effort / Characteristics Non-Labored Spontaneous Non-Labored Respiratory Depth Normal Normal Respiratory Pattern Regular Blood Pressure 111/70 Blood Pressure [Right Arm] 124/77 Blood Pressure Mean 83 Blood Pressure Mean [Right Arm] 92 Blood Pressure Position Right Lateral Pulse Oximetry 97 96 Oxygen Delivery Method Room Air Room Air Sepsis Recent Fever Within 48 Hours No Sepsis New/Unexplained Change in Mental Status No Sepsis Action Taken by Nursing No Action Required Home Medications Current Medication List: was personally reviewed by me Laboratory Data Attestation: I reviewed the patient's lab results. 11/21/24 13:43 11/21/24 13:43 Lab Results 02/08/25 Range/Units 13:43 WBC 11.38 H (4.8-10.8) K/ul RBC 3.87 L (4.70-6.10) M/uL Hgb 11.9 L (14.0-18.0) g/dl Hct 36.2 L (42.0-52.0) % MCV 93.5 (80.0-100.0) fL MCH 30.7 (25.0-34.0) pg MCHC 32.9 (32.0-36.0) g/dL RDW Std Deviation 47.7 H (36.4-46.3) fL RDW Coeff of Cassia 14.0 (11.5-14.5) % Plt Count 297 (130-400) K/uL MPV 8.5 L (9.4-12.4) fL PT 11.2 (9.0-12.0) Seconds INR 1.0 (0.9-1.1) APTT 26 (21-31) Seconds PTT Ratio 1.0 Sodium 133 L (136-145) mmol/L Potassium 4.5 (3.5-5.1) mmol/L Chloride 102 (98-107) mmol/L Carbon Dioxide 26 (21-32) mmol/L Anion Gap 5 (3-11) BUN 42 H (6-23) mg/dl Creatinine 1.45 H (0.6-1.4) mg/dl Est Cr Clr Drug Dosing 39.2 ml/min eGFR 50.25 BUN/Creatinine Ratio 29.0 H (10-20) Glucose 162 H (70-99(Fasting)) mg/dl Calcium 8.8 (8.6-10.3) mg/dl Total Bilirubin 0.6 (0.2-1.0) mg/dl AST 28 (13-39) U/L ALT 17 (7-52) U/L Alkaline Phosphatase 392 H (34-104) U/L Total Protein 7.4 (6.0-8.3) gm/dl Albumin 3.6 (3.4-5.0) gm/dl Globulin 3.8 (2.5-4.0) gm/dl Albumin/Globulin Ratio 0.9 (0.9-2) Procalcitonin 0.14 (0-0.5) ng/ml Administered Medications Sodium Chloride (Nss) 1,000 mls @ 60 mls/hr IV .[id number] ISABELL Stop: 11/22/24 09:24 Last Admin: 11/21/24 17:12 Dose: 60 mls/hr Documented By: ROWAN Morphine Sulfate (Morphine Sulfate 2 Mg/Ml Carp) 2 mg IV Q30M PRN PRN Reason: Pain Stop: 12/05/24 13:49 Last Admin: 11/21/24 15:09 Dose: 2 mg Documented By: JAYSON Discontinued Medications Acetaminophen (Ofirmev) 1,000 mg in 100 mls @ 400 mls/hr IV NOW STA Stop: 11/21/24 14:04 Last Infusion: 11/21/24 14:38 Dose: Infused Documented By: Admin: 11/21/24 13:58 Dose: 400 mls/hr Documented By: KARMEN Morphine Sulfate (Morphine Sulfate 4 Mg/Ml 1 Ml Carp\Vial) 4 mg IV NOW STA Stop: 11/21/24 13:51 Last Admin: 11/21/24 13:57 Dose: 4 mg Documented By: KARMEN Ondansetron HCl (Ondansetron Inj 2 Mg/Ml 2 Ml Vial) 4 mg IV NOW STA Stop: 11/21/24 13:51 Last Admin: 11/21/24 13:57 Dose: 4 mg Documented By: KARMEN Imaging Data Radiologist's Impression: Cervical Spine CT 11/21/24 13:50 EXAM: CT Cervical Spine Without Intravenous Contrast INDICATION: Fall. TECHNIQUE: Axial computed tomography images of the cervical spine without intravenous contrast. Sagittal and coronal reformatted images were created and reviewed. This CT exam was performed using one or more of the following dose reduction techniques: automated exposure control, adjustment of the mA and/or kV according to patient size, and/or use of iterative reconstruction technique. COMPARISON: 10/20/2024 FINDINGS: Limitations: None. Vertebrae: Stable mild facet arthrosis, spondylosis and uncal spurring at multiple levels most notable at C5-C6. No fracture or subluxation. There is trace retrolisthesis likely degenerative's of C3 with respect to the levels above and below. Discs/spinal canal/neural foramina: Mild to moderate to space narrowing at all levels. Mild central disc bulge C2-C3. No stenosis. Mild osteophyte disc complex C3-C4 with minimal ventral thecal sac flattening. There is asymmetric left osteophyte and small disc bulge in the lateral recess with slight ventral canal narrowing. There is moderate left foraminal stenosis at this level. There is severe right foraminal stenosis C5-C6. Soft tissues: No significant abnormality noted. Lung apices: Paraseptal and centrilobular apical bullous emphysematous changes noted. IMPRESSION: Diffuse degenerative changes. No fracture. ACT 112: Negative or not required by law. Electronically signed by Marilee Lyon 11-21-2024 4:07 PM Chest X-Ray 11/21/24 13:50 EXAM: Radiograph of the Chest 1 View INDICATION: Traumatic hip fracture. TECHNIQUE: Frontal view of the chest. COMPARISON: No relevant prior studies available. FINDINGS: Lungs and pleural spaces: Prominent interstitial markings identified with relative paucity of vasculature in the upper lobes right greater than left typical of bullous change. No consolidation or pulmonary edema. No pleural effusion or pneumothorax. Heart: Shape and configuration within normal limits allowing for technique. Mediastinum: Normal contour. Bones/joints: No visible acute fracture. Soft tissues: No abnormality noted. No radiopaque foreign body noted. Vasculature: Ectatic aorta with moderate arch calcification. Upper abdomen: No abnormality noted. IMPRESSION: Chronic obstructive changes and interstitial thickening likely chronic. No acute abnormality. ACT 112: Negative or not required by law. Electronically signed by Marilee Lyon 11-21-2024 2:[address] 11/21/24 13:50 EXAM: CT Head Without Intravenous Contrast INDICATION: Trauma. TECHNIQUE: Axial computed tomography images of the head/brain without intravenous contrast. Sagittal and/or coronal reformats are provided. Sagittal and coronal reformatted images were created and reviewed. This CT exam was performed using one or more of the following dose reduction techniques: automated exposure control, adjustment of the mA and/or kV according to patient size, and/or use of iterative reconstruction technique. COMPARISON: 10/20/2024 FINDINGS: Limitations: None. Brain and extra-axial spaces: There is age appropriate cortical atrophy and chronic ischemic periventricular white matter hypodensity. No acute infarct, hemorrhage or mass noted. Bones/joints: No acute changes. Soft tissues: No significant abnormality noted. Vasculature: Intracranial carotid and left vertebral atherosclerotic calcification noted. Sinuses: No layering fluid in the visualized portions of the paranasal sinuses. Mastoid air cells: No mastoid effusion. Orbits: No significant abnormality noted. IMPRESSION: Cerebral atrophy. No acute changes. ACT 112: Negative or not required by law. Electronically signed by Marilee Lyon 11-21-2024 2:57 PM Hip/Pelvis X-Ray 11/21/24 13:50 EXAM: Radiographs of the Right Hip 3 Views INDICATION: Trauma. TECHNIQUE: Front view pelvis and AP and frog leg lateral views of the right hip. COMPARISON: No relevant prior studies available. FINDINGS: Limitations: None. Bones/joints: There is an acute minimally comminuted intertrochanteric fracture of the right femur without significant angulation. No dislocation. Visualized portion of left proximal femoral nail and locking bolt well-seated and intact. Soft tissues: No abnormality noted. No radiopaque foreign body noted. Gastrointestinal tract: Moderate amounts of stool noted in the visualized colonic segments. IMPRESSION: Acute intertrochanteric fracture of the right femur. ACT 112: Negative or not required by law. Electronically signed by Marilee Lyon 11-21-2024 2:30 PM Discharge Plan Visit Data Chief Complaint: Fall ED Provider: Norris Mancini Discharge Problem: Fracture of right hip, Fall, Anticoagulated, Anemia Patient Disposition: Admitted As Inpatient Condition: Fair Forms Stand Alone Forms: My [facility] anfix Prescriptions Prescriptions: No Action potassium chloride 20 mEq tablet,ER particles/crystals 20 meq PO .DAILY AFTER SUPPER magnesium oxide 400 mg (241.3 mg magnesium) tablet 400 mg PO TID metformin 1,000 mg Tablet 1,000 mg PO .DAILY AFTER SUPPER cholecalciferol (vitamin D3) [Vitamin D3] 125 mcg (5,000 unit) Tablet 125 mcg PO HS gabapentin 300 mg capsule 300 mg PO TID clobetasol 0.05 % cream 1 applic TOPICAL UD Rx Instructions: APPLY CREAM TO SKIN OF AFFECTED AREA TWICE A DAY X 2 WEEKS ON AND OFF clotrimazole-betamethasone 1-0.05 % cream 1 applic TOPICAL BID Rx Instructions: apply to affected area twice a day for 2 weeks per month tramadol 50 mg Tablet 50 mg PO Q6 PRN (Reason: pain) Qty: 30 0RF enoxaparin [Lovenox] 40 mg/0.4 mL syringe 40 mg subcut DAILY 30 Days Qty: 12 0RF pantoprazole 20 mg tablet,delayed release (DR/EC) 20 mg PO DAILYBB insulin aspart U-100 [Novolog FlexPen U-100 Insulin] 100 unit/mL (3 mL) insulin pen 1 sliding scale dose subcut AC Rx Instructions: per son insulin glargine [Lantus Solostar U-100 Insulin] 100 unit/mL (3 mL) insulin pen 6 unit SUBCUT QAM midodrine 5 mg tablet 5 mg PO TID Qty: 90 0RF Rx Instructions: do not give last dose of day after 6PM or within 4 hrs of bedtime Referrals Referrals: Jennifer Soni [Primary Care Provider] - Discharge Problem: Fracture of right hip Qualifiers: Encounter type: initial encounter Fracture type: closed Qualified Code(s): S 72.001A - Fracture of unspecified part of neck of right femur, initial encounter for closed fracture Fall Qualifiers: Encounter type: initial encounter Qualified Code(s): W19.XXXA - Unspecified fall, initial encounter Anemia Qualifiers: Anemia type: unspecified type Qualified Code(s): D64.9 - Anemia, unspecified
--- NOTE | 2024-11-21 14:58 | CT Scan Report ---
EXAM: CT Head Without Intravenous Contrast INDICATION: Trauma. TECHNIQUE: Axial computed tomography images of the head/brain without intravenous contrast. Sagittal and/or coronal reformats are provided. Sagittal and coronal reformatted images were created and reviewed. This CT exam was performed using one or more of the following dose reduction techniques: automated exposure control, adjustment of the mA and/or kV according to patient size, and/or use of iterative reconstruction technique. COMPARISON: 10/20/2024 FINDINGS: Limitations: None. Brain and extra-axial spaces: There is age appropriate cortical atrophy and chronic ischemic periventricular white matter hypodensity. No acute infarct, hemorrhage or mass noted. Bones/joints: No acute changes. Soft tissues: No significant abnormality noted. Vasculature: Intracranial carotid and left vertebral atherosclerotic calcification noted. Sinuses: No layering fluid in the visualized portions of the paranasal sinuses. Mastoid air cells: No mastoid effusion. Orbits: No significant abnormality noted. IMPRESSION: Cerebral atrophy. No acute changes. ACT 112: Negative or not required by law. Electronically signed by Marilee Lyon 11-21-2024 2:57 PM
[2024-11-21] MEDS: MoRPHine SULFATE 2 MG/ML CARP IV PRN (15:09)
[2024-11-21] MEDS ORDERED: MAGNESIUM HYDROXIDE SUSP 30 ML UDC PO PRN (15:58)
[2024-11-21] MEDS ORDERED: GLUCOSE 10 TAB/TUBE PO PRN (15:58)
[2024-11-21] MEDS ORDERED: GLUCOSE 40% GEL 15 GM TUBE PO PRN (15:58)
[2024-11-21] MEDS ORDERED: ALUMINUM/MAGNESIUM SUSP 30 ML UDC PO PRN (15:58)
[2024-11-21] MEDS ORDERED: CARBOHYDRATES FOR HYPOGLYCEMIA PO PRN (15:58)
[2024-11-21] MEDS ORDERED: GLUCAGON FOR INJ 1 MG VIAL SQ PRN (15:58)
--- NOTE | 2024-11-21 16:07 | CT Scan Report ---
EXAM: CT Cervical Spine Without Intravenous Contrast INDICATION: Fall. TECHNIQUE: Axial computed tomography images of the cervical spine without intravenous contrast. Sagittal and coronal reformatted images were created and reviewed. This CT exam was performed using one or more of the following dose reduction techniques: automated exposure control, adjustment of the mA and/or kV according to patient size, and/or use of iterative reconstruction technique. COMPARISON: 10/20/2024 FINDINGS: Limitations: None. Vertebrae: Stable mild facet arthrosis, spondylosis and uncal spurring at multiple levels most notable at C5-C6. No fracture or subluxation. There is trace retrolisthesis likely degenerative's of C3 with respect to the levels above and below. Discs/spinal canal/neural foramina: Mild to moderate to space narrowing at all levels. Mild central disc bulge C2-C3. No stenosis. Mild osteophyte disc complex C3-C4 with minimal ventral thecal sac flattening. There is asymmetric left osteophyte and small disc bulge in the lateral recess with slight ventral canal narrowing. There is moderate left foraminal stenosis at this level. There is severe right foraminal stenosis C5-C6. Soft tissues: No significant abnormality noted. Lung apices: Paraseptal and centrilobular apical bullous emphysematous changes noted. IMPRESSION: Diffuse degenerative changes. No fracture. ACT 112: Negative or not required by law. Electronically signed by Marilee Lyon 11-21-2024 4:07 PM
--- NOTE | 2024-11-21 16:15 | History & Physical Report ---
Date of Service November 21, 2024 Assessment & Plan (1) Intertrochanteric fracture of right femur: Plan Closed fracture of right femur Acute intertrochanteric fracture of right femur Fall Status post fall, due to noncompliance with using walker at snf. C-spine CT/CXR/head CT with no acute finding. Pain control, bowel regimen. N.p.o., gentle fluids Ortho consulted for further recommendations. Pt at moderate surgical risk for much needed hip repair given his frailty and comorbidities. Last lovenox dose use in 11/20 evening per snf. PT/OT after Sx. Recent fall and Lt hip fracture: s/p repair, being rehabbed and on lovenox sc at snf. History of diabetes: Sliding scale insulin. Hold home metformin. Right great toe wound: on posterior aspect, no purulence noted, no s/s of infe ction noted. non tender, no erythema. Wound care consult. History of hypotension: On midodrine, continue GERD: On Protonix Tobacco abuse: Counseling done Elevated alk phosphate 392, chronically elevated in 200's. follow repeat labs DVT prophylaxis SCDs for now, last lovenox use 11/22 evening per [facility]. Disposition: Medical floor DNR/DNI History of Present Illness Chief Complaint: fall, right hip pain. Primary Care Provider: Jennifer Soni 74-year-old male with PMH of diabetes, hypertension on midodrine, GERD presents with fall and right hip pain, noted to have right intertrochanteric fracture in the ED. Patient was recently admitted 10/21/2024 for left hip fracture, which was repaired and patient was discharged to SNF. Per staff, patient is supposed to use walker but he continues to walk and transfer himself independently and has fallen 2-3 times during the stay so far. Similarly while he was not using walker today in bathroom, he lost balance and fell and hit his right hip. He does not appear to have hit his head though fall was unwitnessed per staff. Patient denies fever/sore throat/cough/chest pain/belly pain/pain and burning while passing urine. Patient reports normal appetite and bowel habit. Patient reports smoking 1 packs a day for most of his life, denies alcohol/recreational drugs. DNI/DNI: Discussed with the patient and also I discussed with patient's son over the phone. Medications reviewed with [facility] over the phone. Plan of care discussed with patient at bedside and patient's son over the phone. Allergies Allergy/AdvReac Type Severity Reaction Status Date / Time No Known Allergies Allergy Verified 02/28/24 17:00 Home Medications Medication Instructions Recorded Confirmed Type magnesium oxide 400 mg (241.3 mg 400 mg PO TID 04/05/23 10/20/24 History magnesium) tablet cholecalciferol (vitamin D3) 125 125 mcg PO HS 06/18/23 10/20/24 History mcg (5,000 unit) tablet (Vitamin D3) metformin 1,000 mg tablet 1,000 mg PO .DAILY AFTER SUPPER 06/18/23 10/20/24 History potassium chloride 20 mEq 20 meq PO .DAILY AFTER SUPPER 11/09/23 10/20/24 History tablet,extended release(part/cryst) insulin aspart U-100 100 unit/mL 1 sliding scale dose subcut AC 02/21/24 10/20/24 History (3 mL) subcutaneous pen (Novolog FlexPen U-100 Insulin aspart) insulin glargine 100 unit/mL (3 6 unit subcut QAM 02/21/24 10/20/24 History mL) subcutaneous pen (Lantus Solostar U-100 Insulin) pantoprazole 20 mg tablet,delayed 20 mg PO DAILYBB 02/21/24 10/20/24 History release midodrine 5 mg tablet 5 mg PO TID #90 tabs 03/06/24 10/20/24 Rx clobetasol 0.05 % topical cream 1 applic topical UD 10/20/24 10/20/24 History clotrimazole-betamethasone 1 1 applic topical BID 10/20/24 10/20/24 History %-0.05 % topical cream gabapentin 300 mg capsule 300 mg PO TID 10/20/24 10/20/24 History tramadol 50 mg tablet 50 mg PO Q6 PRN pain #30 tabs 10/24/24 Rx enoxaparin 40 mg/0.4 mL 40 mg (0.4 mL) subcut DAILY 30 10/25/24 Rx subcutaneous syringe (Lovenox) days #12 mL Past Med/Surg History Problem List (Updated 11/21/24 @ 16:16 by Joya Guardado MD) Intertrochanteric fracture of right femur Chronic ulcer of right foot with fat layer exposed Hypomagnesemia Intertrochanteric fracture of left hip Chronic venous stasis dermatitis Diabetes mellitus type 2, controlled Closed fracture of greater trochanter of left femur (Acute) Fall from standing (Acute) Rhabdomyolysis (Acute) Dermatitis of lower extremity GERD (gastroesophageal reflux disease) Alcohol intoxication Closed T12 fracture Fall (Acute) Hypoxia (Acute) Pneumonia Hypomagnesemia (Acute) Leukocytosis (Acute) Elevated lactic acid level (Acute) CARLO (acute kidney injury) (Acute) Acute hypotension (Acute) Hypoxia (Acute) Metabolic encephalopathy Exposure to body fluid Cellulitis (Acute) Fecal soiling due to fecal incontinence Acute dehydration (Acute) Acute hypotension (Acute) Acute UTI (Acute) Encounter for pre-operative examination Right nephrolithiasis Weakness Low blood pressure DM2 (diabetes mellitus, type 2) GERD (gastroesophageal reflux disease) Esophageal candidiasis Urinary retention Phimosis Hydronephrosis, right Medical History Hypomagnesemia 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 Diabetes mellitus, type 2 Cataract upcoming surgery for correction Low blood pressure On Midodrine Chronic obstructive pulmonary disease Surgical History History of esophagogastroduodenoscopy (EGD) History of colonoscopy History of tooth extraction Family History Other No family history of adverse response to anesthesia Social History Smoking Status: Current every day smoker Tobacco Type: Cigarettes Cigarettes Per Day: 20; Second Hand Exposure: No; Do You Dip or Chew Tobacco: No; Hx Alcohol Use: No Hx Substance Use: No Preferred Language: Iraqi Communication Ability: Effective Sash Installer Required: No Beliefs That Will Affect Care: None Current Living Situation: Alone Current Living Situation Comment: son lives down the road Feels Safe at Home: Yes Assistive Devices: Walker Review of Systems Review of Systems: Negative otherwise mentioned in HPI. Physical Exam Physical Exam: GENERAL: Alert and oriented x3. NAD, on RA. Appear old/frail/weak. HEENT: No pallor, no icterus. Pupils equal, round and reactive to light. Oral mucosa moist. NECK: No JVD, no neck masses. HEART: S1 and S2 heard. Regular rate and rhythm. No murmur, no gallop. RESPIRATORY SYSTEM: Normal AP diameter. No accessory muscle use. No wheezing, no crackles. ABDOMEN: Soft, bowel sounds present, nontender, no distention. CENTRAL NERVOUS SYSTEM: No facial droop. Speech is clear. Obeys simple commands. Moves extremities. EXTREMITIES: No edema, no erythema seen. LLE hip repair site w/ healthy healed surgical scar. RLE hip painful rom, RLE ext rotated and short. Rt great toe base w/ unstageable 0.5 cm x 0.5 cm ulcer w/ clean base and no erythema or purulence noted. b/l dorsalis pedis pulse palpable. UC in situ, light yellow urine in bag noted. Results & Data Results & Data Vital Signs (Past 12 Hours) Vital Signs Temp Pulse Pulse Resp BP BP Pulse Ox 11/21/24 14:39 67 18 124/77 96 11/21/24 13:30 71 11/21/24 13:16 36.5 C 75 14 111/70 97 O2 Del Method 11/21/24 14:39 Room Air 11/21/24 13:30 11/21/24 13:16 Room Air
--- NOTE | 2024-11-21 16:44 | Orthopedic Consultation ---
Date of Consultation November 21, 2024 Assessment & Plan (1) Intertrochanteric fracture of right femur: The patient is a 74 year old male who sustained a right hip fracture from a ground level fall. The patients treatment options of conservative versus surgical intervention were discussed. Since the patient was an ambulatory prior to the injury and to avoid the risks of bed sores, pulmonary complications, and to give the best chance for ambulation, I recommended surgery. The patient understands the risks of surgery, which include but are not limited to: bleeding, infection, re-operation, damage to nerves and arteries, continued pain, failure of the hardware, mal-union, non-union, DVT, and . In addition, the patient is aware of the 20-30% morbidity associated with hip fracture for up to 1 year following a hip fracture. The patient has elected to proceed with surgery ORIF right hip fracture and the informed consent was signed. The patient understands all these instructions and explanations, all their questions have been satisfactorily addressed. Placed on the add-on schedule for tomorrow. Will proceed with surgery Saturday if medically stable. Patient may eat now from an ortho standpoint, but will be NPO after midnight and Hold Lovenox tonight. The patient will be NWB. TEDs and foot pumps to RLE. Antibiotics and TXA transaction manager to OR. Present on Admission?: Yes History of Present Illness Reason for Consultation: Right hip fracture Requesting Physician: Karri Smith MD Attending Physician: Svitlana Guardado MD History of Present Illness 74 yo male status post fall, due to noncompliance with using walker at snf. Patient underwent ORIF L hip fracture by Dr. Tanner 10/21/24. Patient brought to ED x-rays were obtained and was consulted for further evaluation and treatment of right hip fracture. Patient is on Lovenox for post-op DVT prophylaxis from his recent surgery. Allergies Allergy/AdvReac Type Severity Reaction Status Date / Time No Known Allergies Allergy Verified 02/28/24 17:00 Home Medications Medication Instructions Recorded Confirmed Type magnesium oxide 400 mg (241.3 mg 400 mg PO TID 04/05/23 11/21/24 History magnesium) tablet cholecalciferol (vitamin D3) 125 125 mcg PO HS 06/18/23 11/21/24 History mcg (5,000 unit) tablet (Vitamin D3) metformin 1,000 mg tablet 1,000 mg PO .DAILY AFTER SUPPER 06/18/23 11/21/24 History potassium chloride 20 mEq 20 meq PO .DAILY AFTER SUPPER 11/09/23 11/21/24 History tablet,extended release(part/cryst) insulin aspart U-100 100 unit/mL 1 sliding scale dose subcut AC 02/21/24 11/21/24 History (3 mL) subcutaneous pen (Novolog FlexPen U-100 Insulin aspart) insulin glargine 100 unit/mL (3 6 unit subcut QAM 02/21/24 11/21/24 History mL) subcutaneous pen (Lantus Solostar U-100 Insulin) pantoprazole 20 mg tablet,delayed 20 mg PO DAILYBB 02/21/24 11/21/24 History release midodrine 5 mg tablet 5 mg PO TID #90 tabs 03/06/24 11/21/24 Rx clobetasol 0.05 % topical cream 1 applic topical UD 10/20/24 11/21/24 History clotrimazole-betamethasone 1 1 applic topical BID 10/20/24 11/21/24 History %-0.05 % topical cream gabapentin 300 mg capsule 300 mg PO TID 10/20/24 11/21/24 History tramadol 50 mg tablet 50 mg PO Q6 PRN pain #30 tabs 10/24/24 Rx enoxaparin 40 mg/0.4 mL 40 mg (0.4 mL) subcut DAILY 30 10/25/24 Rx subcutaneous syringe (Lovenox) days #12 mL Patient History Medical History Hypomagnesemia 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 Diabetes mellitus, type 2 Cataract upcoming surgery for correction Low blood pressure On Midodrine Chronic obstructive pulmonary disease Surgical History History of esophagogastroduodenoscopy (EGD) History of colonoscopy History of tooth extraction Family History Other No family history of adverse response to anesthesia Social History Smoking Status: Current every day smoker Tobacco Type: Cigarettes Cigarettes Per Day: 20; Second Hand Exposure: No; Do You Dip or Chew Tobacco: No; Hx Alcohol Use: No Hx Substance Use: No Preferred Language: Arabic Communication Ability: Effective Bed Worker Required: No Beliefs That Will Affect Care: None Current Living Situation: Alone Current Living Situation Comment: son lives down the road Feels Safe at Home: Yes Assistive Devices: Walker Review of Systems Review of Systems: All systems reviewed & are unremarkable except as noted in HPI & below Physical Exam Physical Exam: RLE: Slightly shortened and externally rotated. Sensation to light touch is diminished but unchanged. BCR < 2 sec. Able to wiggle toes and ankle. Calf soft and non-tender. Very small wound volar aspect great toe, no active drainage, but dried serosanguineous drainage on the dressing. Results & Data Vital Signs (Past 12 Hours) Vital Signs Temp Pulse Pulse Resp BP BP Pulse Ox 11/21/24 14:39 67 18 124/77 96 11/21/24 13:30 71 11/21/24 13:16 36.5 C 75 14 111/70 97 O2 Del Method 11/21/24 14:39 Room Air 11/21/24 13:30 11/21/24 13:16 Room Air Laboratory Results Laboratory Results WBC 11.38 K/ul (4.8-10.8) H 11/21/24 13:43 RBC 3.87 M/uL (4.70-6.10) L 11/21/24 13:43 Hgb 11.9 g/dl (14.0-18.0) L 11/21/24 13:43 Hct 36.2 % (42.0-52.0) L 11/21/24 13:43 MCV 93.5 fL (80.0-100.0) 11/21/24 13:43 MCH 30.7 pg (25.0-34.0) 11/21/24 13:43 MCHC 32.9 g/dL (32.0-36.0) 11/21/24 13:43 RDW Std Deviation 47.7 fL (36.4-46.3) H 11/21/24 13:43 RDW Coeff of Cassia 14.0 % (11.5-14.5) 11/21/24 13:43 Plt Count 297 K/uL (130-400) 11/21/24 13:43 MPV 8.5 fL (9.4-12.4) L 11/21/24 13:43 PT 11.2 Seconds (9.0-12.0) 11/21/24 13:43 INR 1.0 (0.9-1.1) 11/21/24 13:43 APTT 26 Seconds (21-31) 11/21/24 13:43 PTT Ratio 1.0 11/21/24 13:43 Sodium 133 mmol/L (136-145) L 11/21/24 13:43 Potassium 4.5 mmol/L (3.5-5.1) 11/21/24 13:43 Chloride 102 mmol/L (98-107) 11/21/24 13:43 Carbon Dioxide 26 mmol/L (21-32) 11/21/24 13:43 Anion Gap 5 (3-11) 11/21/24 13:43 BUN 42 mg/dl (6-23) H 11/21/24 13:43 Creatinine 1.45 mg/dl (0.6-1.4) H 11/21/24 13:43 Est Cr Clr Drug Dosing 39.2 ml/min 11/21/24 13:43 eGFR 50.25 11/21/24 13:43 BUN/Creatinine Ratio 29.0 (10-20) H 11/21/24 13:43 Glucose 162 mg/dl (70-99(Fasting)) H 11/21/24 13:43 Calcium 8.8 mg/dl (8.6-10.3) 11/21/24 13:43 Total Bilirubin 0.6 mg/dl (0.2-1.0) 11/21/24 13:43 AST 28 U/L (13-39) 11/21/24 13:43 ALT 17 U/L (7-52) 11/21/24 13:43 Alkaline Phosphatase 392 U/L (34-104) H 11/21/24 13:43 Total Protein 7.4 gm/dl (6.0-8.3) 11/21/24 13:43 Albumin 3.6 gm/dl (3.4-5.0) 11/21/24 13:43 Globulin 3.8 gm/dl (2.5-4.0) 11/21/24 13:43 Albumin/Globulin Ratio 0.9 (0.9-2) 11/21/24 13:43 Procalcitonin 0.14 ng/ml (0-0.5) 11/21/24 13:[address] 11/21/24 13:50 EXAM: CT Cervical Spine Without Intravenous Contrast INDICATION: Fall. TECHNIQUE: Axial computed tomography images of the cervical spine without intravenous contrast. Sagittal and coronal reformatted images were created and reviewed. This CT exam was performed using one or more of the following dose reduction techniques: automated exposure control, adjustment of the mA and/or kV according to patient size, and/or use of iterative reconstruction technique. COMPARISON: 10/20/2024 FINDINGS: Limitations: None. Vertebrae: Stable mild facet arthrosis, spondylosis and uncal spurring at multiple levels most notable at C5-C6. No fracture or subluxation. There is trace retrolisthesis likely degenerative's of C3 with respect to the levels above and below. Discs/spinal canal/neural foramina: Mild to moderate to space narrowing at all levels. Mild central disc bulge C2-C3. No stenosis. Mild osteophyte disc complex C3-C4 with minimal ventral thecal sac flattening. There is asymmetric left osteophyte and small disc bulge in the lateral recess with slight ventral canal narrowing. There is moderate left foraminal stenosis at this level. There is severe right foraminal stenosis C5-C6. Soft tissues: No significant abnormality noted. Lung apices: Paraseptal and centrilobular apical bullous emphysematous changes noted. IMPRESSION: Diffuse degenerative changes. No fracture. ACT 112: Negative or not required by law. Electronically signed by Marilee Lyon 11-21-2024 4:07 PM Chest X-Ray 11/21/24 13:50 EXAM: Radiograph of the Chest 1 View INDICATION: Traumatic hip fracture. TECHNIQUE: Frontal view of the chest. COMPARISON: No relevant prior studies available. FINDINGS: Lungs and pleural spaces: Prominent interstitial markings identified with relative paucity of vasculature in the upper lobes right greater than left typical of bullous change. No consolidation or pulmonary edema. No pleural effusion or pneumothorax. Heart: Shape and configuration within normal limits allowing for technique. Mediastinum: Normal contour. Bones/joints: No visible acute fracture. Soft tissues: No abnormality noted. No radiopaque foreign body noted. Vasculature: Ectatic aorta with moderate arch calcification. Upper abdomen: No abnormality noted. IMPRESSION: Chronic obstructive changes and interstitial thickening likely chronic. No acute abnormality. ACT 112: Negative or not required by law. Electronically signed by Marilee Lyon 11-21-2024 2:[address] 11/21/24 13:50 EXAM: CT Head Without Intravenous Contrast INDICATION: Trauma. TECHNIQUE: Axial computed tomography images of the head/brain without intravenous contrast. Sagittal and/or coronal reformats are provided. Sagittal and coronal reformatted images were created and reviewed. This CT exam was performed using one or more of the following dose reduction techniques: automated exposure control, adjustment of the mA and/or kV according to patient size, and/or use of iterative reconstruction technique. COMPARISON: 10/20/2024 FINDINGS: Limitations: None. Brain and extra-axial spaces: There is age appropriate cortical atrophy and chronic ischemic periventricular white matter hypodensity. No acute infarct, hemorrhage or mass noted. Bones/joints: No acute changes. Soft tissues: No significant abnormality noted. Vasculature: Intracranial carotid and left vertebral atherosclerotic calcification noted. Sinuses: No layering fluid in the visualized portions of the paranasal sinuses. Mastoid air cells: No mastoid effusion. Orbits: No significant abnormality noted. IMPRESSION: Cerebral atrophy. No acute changes. ACT 112: Negative or not required by law. Electronically signed by Marilee Lyon 11-21-2024 2:57 PM Hip/Pelvis X-Ray 11/21/24 13:50 EXAM: Radiographs of the Right Hip 3 Views INDICATION: Trauma. TECHNIQUE: Front view pelvis and AP and frog leg lateral views of the right hip. COMPARISON: No relevant prior studies available. FINDINGS: Limitations: None. Bones/joints: There is an acute minimally comminuted intertrochanteric fracture of the right femur without significant angulation. No dislocation. Visualized portion of left proximal femoral nail and locking bolt well-seated and intact. Soft tissues: No abnormality noted. No radiopaque foreign body noted. Gastrointestinal tract: Moderate amounts of stool noted in the visualized colonic segments. IMPRESSION: Acute intertrochanteric fracture of the right femur. ACT 112: Negative or not required by law. Electronically signed by Marilee Lyon 11-21-2024 2:30 PM
[2024-11-21] MEDS: SODIUM CHLORIDE 0.9% 1,000 ML IV SCH (17:12)
[2024-11-21] MEDS: HYDROmorphone HCL 2 MG TAB PO PRN (17:33)
[2024-11-21] MEDS ORDERED: LANTUS PER UNIT CHARGE SQ SCH (21:00)
[2024-11-21] MEDS: GABAPENTIN 300 MG CAP PO SCH (21:01)
[2024-11-21] MEDS: DOCUSATE SODIUM 100 MG CAP PO SCH (21:01)
[2024-11-21] MEDS: POTASSIUM CHLORIDE CRTAB 20 MEQ TABCR PO SCH (21:01)
[2024-11-21] MEDS: oxyCODONE HCL IR 5 MG TAB (IMMEDIATE RELEASE) PO PRN (21:01)
[2024-11-21] MEDS: CHOLECALCIFEROL 125 MCG (5,000 UNITS) TAB PO SCH (21:01)
[2024-11-21] MEDS: INSULIN ASPART PER UNIT CHARGE SC SCH (21:12)
[2024-11-21] MEDS: LANTUS PER UNIT CHARGE SQ SCH (21:30)
[2024-11-21] MEDS: CLOBETASOL PROPIONATE 0.05% CREAM 15 GM TUBE TOP SCH (21:32)
[2024-11-22] MEDS: HYDROmorphone INJ 0.5 MG/0.5 ML SYR IV PRN (00:08)
[2024-11-22] MEDS ORDERED: Nursing to Pharmacy Communication SCH ×2 (02:30→16:30)
[2024-11-22] MEDS: ACETAMINOPHEN 325 MG TAB PO PRN (05:44)
[2024-11-22] MEDS: PANTOprazole 40 MG TAB PO SCH (05:44)
[2024-11-22] MEDS: INSULIN ASPART PER UNIT CHARGE SC SCH ×2 (05:49→16:58)
[2024-11-22] MEDS: MIDODRINE HCL 2.5 MG TAB PO SCH (06:04)
[2024-11-22 06:23] LABS: Mean Corpuscular Hemoglobin 31.2 pg (25.0-34.0); Mean Corpuscular Hgb Conc 33.3 g/dL (32.0-36.0); Mean Corpuscular Volume 93.5 fL (80.0-100.0); Mean Platelet Volume 8.8 fL (9.4-12.4); Platelet Count 281 K/uL (130-400); RDW Coefficient of Variation 14.1 % (11.5-14.5); RDW Standard Deviation 48.3 fL (36.4-46.3); Red Blood Count 3.53 M/uL (4.70-6.10); White Blood Count 10.93 K/ul (4.8-10.8)
[2024-11-22 06:45] LABS: Albumin Level 3.2 gm/dl (3.4-5.0); BUN Creatinine Ratio 32.8 (10-20); Bilirubin Direct 0.2 mg/dl (0-0.2); Bilirubin,Total 0.6 mg/dl (0.2-1.0); Calcium 8.9 mg/dl (8.6-10.3); Creatinine Clr Calc Pharmacy 45.5 ml/min; Magnesium 1.9 mg/dl (1.7-2.4); Phosphorus 3.9 mg/dl (2.5-4.9); Potassium 5.1 mmol/L (3.5-5.1); Total Protein 6.7 gm/dl (6.0-8.3)
[2024-11-22] MEDS ORDERED: ACETAMINOPHEN 1000 MG/100 ML IV IV ONE (07:27)
[2024-11-22 08:54] LABS: Estimated Average Glucose 157 mg/dl; Hemoglobin A1C 7.1 % (4.5-5.6)
[2024-11-22] MEDS ORDERED: METOCLOPRAMIDE HCL INJ 5 MG/ML 2 ML VIAL ONE (09:23)
[2024-11-22] MEDS ORDERED: ONDANSETRON INJ 2 MG/ML 2 ML VIAL ONE (09:23)
[2024-11-22] MEDS ORDERED: LIDOCAINE 2% 2 ML VIAL/AMP(20MG/ML) INFIL ONE (09:23)
[2024-11-22] MEDS ORDERED: fentaNYL citrate PF 100 MCG/2 ML VIAL ONE (09:23)
[2024-11-22] MEDS ORDERED: DEXAMETHASONE SOD INJ 4 MG/ML VIAL ONE (09:23)
[2024-11-22] MEDS ORDERED: PROPOFOL IV EMULSION 10 MG/ML 20 ML VIAL IV ONE (09:23)
[2024-11-22] MEDS ORDERED: MIDAZOLAM HCL 1 MG/ML 2ML VIAL ONE ×3 (09:23→11:49)
[2024-11-22] MEDS ORDERED: ceFAZolin 330 MG/ML 1 GM VIAL ONE (09:24)
[2024-11-22] MEDS ORDERED: WATER, STERILE FOR INJ 10 ML VIAL ONE (09:24)
[2024-11-22] MEDS: DEXTROSE 50% 50 ML SYRINGE IV PRN (11:32)
--- NOTE | 2024-11-22 11:55 | Anesthesiology Consultation ---
Date of Service November 22, 2024 Assessment & Plan Chart Review Chart Review: Acceptable Risk for Surgery and Patient NOT seen in Pre Admission Testing History Surgery Operation Date: 11/22/24 10:30 Proposed Procedures p Intramedullary [place] Femur(Right) - Curry Smith MD Height/Weight Height: 5 ft 8 in Weight: 58.5 kg Allergies Allergy/AdvReac Type Severity Reaction Status Date / Time No Known Allergies Allergy Verified 02/28/24 17:00 Medications Home Medications Medication Instructions Recorded Confirmed Last Taken magnesium oxide 400 mg (241.3 mg 400 mg PO TID 04/05/23 11/21/24 02/21/24 magnesium) tablet cholecalciferol (vitamin D3) 125 125 mcg PO HS 06/18/23 11/21/24 02/20/24 mcg (5,000 unit) tablet (Vitamin D3) metformin 1,000 mg tablet 1,000 mg PO .DAILY AFTER SUPPER 06/18/23 11/21/24 02/20/24 potassium chloride 20 mEq 20 meq PO .DAILY AFTER SUPPER 11/09/23 11/21/24 02/21/24 tablet,extended release(part/cryst) insulin aspart U-100 100 unit/mL 1 sliding scale dose subcut AC 02/21/24 11/21/24 02/21/24 (3 mL) subcutaneous pen (Novolog FlexPen U-100 Insulin aspart) insulin glargine 100 unit/mL (3 6 unit subcut QAM 02/21/24 11/21/24 02/21/24 mL) subcutaneous pen (Lantus Solostar U-100 Insulin) pantoprazole 20 mg tablet,delayed 20 mg PO DAILYBB 02/21/24 11/21/24 02/21/24 release midodrine 5 mg tablet 5 mg PO TID #90 tabs 03/06/24 11/21/24 Unknown clobetasol 0.05 % topical cream 1 applic topical UD 10/20/24 11/21/24 Unknown clotrimazole-betamethasone 1 1 applic topical BID 10/20/24 11/21/24 Unknown %-0.05 % topical cream gabapentin 300 mg capsule 300 mg PO TID 10/20/24 11/21/24 Unknown tramadol 50 mg tablet 50 mg PO Q6 PRN pain #30 tabs 10/24/24 Unknown enoxaparin 40 mg/0.4 mL 40 mg (0.4 mL) subcut DAILY 30 10/25/24 Unknown subcutaneous syringe (Lovenox) days #12 mL Active Medications Generic Name Dose Route Start Last Admin Trade Name Freq PRN Reason Stop Dose Admin Acetaminophen 650 mg 11/21/24 18:00 11/22/24 05:44 Acetaminophen 325 Mg Tab PO 12/21/24 17:59 650 mg Q4H PRN Administration Pain or Fever Clobetasol Propionate 1 appln 11/21/24 21:00 11/22/24 08:13 Clobetasol Propionate 0.05% Cream 15 Gm Tube TOP 12/21/24 20:59 Not Given BID ISABELL Dextrose 25 - 50 ml 11/21/24 15:58 11/22/24 11:32 Dextrose 50% 50 Ml Syringe IV 12/21/24 15:57 25 ml UD PRN Administration Hypoglycemia Protocol Protocol Docusate Sodium 100 mg 11/21/24 21:00 11/22/24 08:12 Docusate Sodium 100 Mg Cap PO 12/21/24 20:59 Not Given BID ISABELL Gabapentin 300 mg 11/21/24 21:00 11/22/24 08:12 Gabapentin 300 Mg Cap PO 12/21/24 20:59 Not Given TID ISABELL Hydromorphone HCl 1 mg 11/21/24 16:18 11/21/24 17:33 Hydromorphone Hcl 2 Mg Tab PO 12/05/24 16:17 1 mg Q6H PRN Administration Severe Pain (Scale 7, 8, 9,10) Hydromorphone HCl 0.5 mg 11/21/24 21:49 11/22/24 11:34 Hydromorphone Inj 0.5 Mg/0.5 Ml Syr IV 12/05/24 21:48 0.5 mg Q4H PRN Administration Pain Insulin Aspart 0 units 11/22/24 06:00 11/22/24 11:37 Insulin Aspart Per Unit Charge SC 12/22/24 05:59 Not Given Q6 ISABELL Midodrine 5 mg 11/22/24 07:00 11/22/24 06:04 Midodrine Hcl 2.5 Mg Tab PO 12/22/24 06:59 5 mg 0700,1200,1700 ISABELL Administration Oxycodone HCl 5 mg 11/21/24 16:18 11/22/24 05:43 Oxycodone Hcl Ir 5 Mg Tab (Immediate Release) PO 12/05/24 16:17 5 mg Q6H PRN Administration Moderate Pain (Scale 4, 5, 6) Pantoprazole Sodium 20 mg 11/22/24 06:30 11/22/24 05:44 Pantoprazole 40 Mg Tab PO 12/22/24 06:29 20 mg DAILYBB ISABELL Administration Potassium Chloride 20 meq 11/21/24 20:21 11/21/24 21:01 Potassium Chloride Crtab 20 Meq Tabcr PO 12/21/24 20:20 20 meq DAILY@1730 ISABELL Administration Vitamin D 125 mcg 11/21/24 21:00 11/21/24 21:01 Cholecalciferol 125 Mcg (5,000 Units) Tab PO 12/21/24 20:59 125 mcg HS ISABELL Administration NPO Date Last Intake of Fluids: 11/22/24 Time Last Intake of Fluids: 06:00 Last Intake of Fluids Comment: sip of water with medications Date Last Intake of Solids: 11/21/24 Time Last Intake of Solids: 21:00 Past Medical History Medical History Hypomagnesemia 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 Diabetes mellitus, type 2 Cataract upcoming surgery for correction Low blood pressure On Midodrine Chronic obstructive pulmonary disease Past Family History Family History Other No family history of adverse response to anesthesia Past Surgical History Surgical History History of esophagogastroduodenoscopy (EGD) History of colonoscopy History of tooth extraction Social History Smoking Status: Current every day smoker tobacco type: cigarettes Smoking cigarettes per day: 20 Do You Dip or Chew Tobacco: No Hx Alcohol Use: No Hx Substance Use: No substance use type: does not use Physical Exam Vital Signs Last Vital Signs Temp 36.5 C 11/22/24 07:29 Pulse 80 11/22/24 07:29 Resp 18 11/22/24 07:29 BP 124/77 11/22/24 07:29 Pulse Ox 95 11/22/24 07:29 O2 Del Method Room Air 11/22/24 07:29 Testing Laboratory Results 11/22/24 05:33 11/22/24 05:33 PT 11.2 Seconds (9.0-12.0) 11/21/24 13:43 INR 1.0 (0.9-1.1) 11/21/24 13:43 APTT 26 Seconds (21-31) 11/21/24 13:43 Hemoglobin A1c 7.1 % (4.5-5.6) H 11/22/24 05:33 11/22/24 11/22/24 11/22/24 11:46 11:23 11:21 POC Glucose 117 H 54 L* 58 L* 11/22/24 11/22/24 06:57 05:36 POC Glucose 98 71
--- NOTE | 2024-11-22 11:56 | Orthopedic Progress Note ---
Date of Service November 22, 2024 Assessment & Plan (1) Intertrochanteric fracture of right femur: Plan: The patient is a 74 year old male who sustained a right hip fracture from a ground level fall. The patients treatment options of conservative versus surgical intervention were discussed. Since the patient was an ambulatory prior to the injury and to avoid the risks of bed sores, pulmonary complications, and to give the best chance for ambulation, I recommended surgery. The patient understands the risks of surgery, which include but are not limited to: bleeding, infection, re-operation, damage to nerves and arteries, continued pain, failure of the hardware, mal-union, non-union, DVT, and . In addition, the patient is aware of the 20-30% morbidity associated with hip fracture for up to 1 year following a hip fracture. The patient has elected to proceed with surgery ORIF right hip fracture and the informed consent was signed. The patient understands all these instructions and explanations, all their questions have been satisfactorily addressed. Placed on the add-on schedule for today. Will proceed with surgery as medically stable. Patient has been NPO after midnight and Hold Lovenox. The patient is NWB. TEDs and foot pumps to LLE. Antibiotics and TXA apron operator to OR. Admission and Anticipated Discharge Date Admission Date: November 21, 2024 Subjective Right hip pain, ready for surgery. Physical Exam Physical Exam: RLE: Slightly shortened and externally rotated. Sensation to light touch is diminished but unchanged. BCR < 2 sec. Able to wiggle toes and ankle. Calf soft and non-tender. Great toe dressing intact, dry, clean. Results & Data Vital Signs (Past 12 Hours) Vital Signs Temp Pulse Resp BP Pulse Ox O2 Del Method 11/22/24 07:29 36.5 C 80 18 124/77 95 Room Air 11/22/24 06:03 80 16 119/74 95 Room Air Laboratory Results Laboratory Results WBC 10.93 K/ul (4.8-10.8) H 11/22/24 05:33 RBC 3.53 M/uL (4.70-6.10) L 11/22/24 05:33 Hgb 11.0 g/dl (14.0-18.0) L 11/22/24 05:33 Hct 33.0 % (42.0-52.0) L 11/22/24 05:33 MCV 93.5 fL (80.0-100.0) 11/22/24 05:33 MCH 31.2 pg (25.0-34.0) 11/22/24 05:33 MCHC 33.3 g/dL (32.0-36.0) 11/22/24 05:33 RDW Std Deviation 48.3 fL (36.4-46.3) H 11/22/24 05:33 RDW Coeff of Cassia 14.1 % (11.5-14.5) 11/22/24 05:33 Plt Count 281 K/uL (130-400) 11/22/24 05:33 MPV 8.8 fL (9.4-12.4) L 11/22/24 05:33 PT 11.2 Seconds (9.0-12.0) 11/21/24 13:43 INR 1.0 (0.9-1.1) 11/21/24 13:43 APTT 26 Seconds (21-31) 11/21/24 13:43 PTT Ratio 1.0 11/21/24 13:43 Sodium 137 mmol/L (136-145) 11/22/24 05:33 Potassium 5.1 mmol/L (3.5-5.1) 11/22/24 05:33 Chloride 105 mmol/L (98-107) 11/22/24 05:33 Carbon Dioxide 25 mmol/L (21-32) 11/22/24 05:33 Anion Gap 7 (3-11) 11/22/24 05:33 BUN 38 mg/dl (6-23) H 11/22/24 05:33 Creatinine 1.16 mg/dl (0.6-1.4) 11/22/24 05:33 Est Cr Clr Drug Dosing 45.5 ml/min 11/22/24 05:33 eGFR 65.68 11/22/24 05:33 BUN/Creatinine Ratio 32.8 (10-20) H 11/22/24 05:33 Glucose 70 mg/dl (70-99(Fasting)) 11/22/24 05:33 POC Glucose 117 mg/dl (70-99) H 11/22/24 11:46 Estimat Average Glucose 157 mg/dl 11/22/24 05:33 Hemoglobin A1c 7.1 % (4.5-5.6) H 11/22/24 05:33 Calcium 8.9 mg/dl (8.6-10.3) 11/22/24 05:33 Phosphorus 3.9 mg/dl (2.5-4.9) 11/22/24 05:33 Magnesium 1.9 mg/dl (1.7-2.4) 11/22/24 05:33 Total Bilirubin 0.6 mg/dl (0.2-1.0) 11/22/24 05:33 Direct Bilirubin 0.2 mg/dl (0-0.2) 11/22/24 05:33 AST 22 U/L (13-39) 11/22/24 05:33 ALT 14 U/L (7-52) 11/22/24 05:33 Alkaline Phosphatase 329 U/L (34-104) H 11/22/24 05:33 Total Protein 6.7 gm/dl (6.0-8.3) 11/22/24 05:33 Albumin 3.2 gm/dl (3.4-5.0) L 11/22/24 05:33 Globulin 3.8 gm/dl (2.5-4.0) 11/21/24 13:43 Albumin/Globulin Ratio 0.9 (0.9-2) 11/21/24 13:43 Procalcitonin 0.14 ng/ml (0-0.5) 11/21/24 13:43 Nasal Screen MRSA (PCR) Negative (Negative) 11/22/24 00:13 SARS-CoV-2, RNA, NAAT NEGATIVE (NEGATIVE) 11/21/24 17:[address] 11/21/24 13:50 EXAM: CT Cervical Spine Without Intravenous Contrast INDICATION: Fall. TECHNIQUE: Axial computed tomography images of the cervical spine without intravenous contrast. Sagittal and coronal reformatted images were created and reviewed. This CT exam was performed using one or more of the following dose reduction techniques: automated exposure control, adjustment of the mA and/or kV according to patient size, and/or use of iterative reconstruction technique. COMPARISON: 10/20/2024 FINDINGS: Limitations: None. Vertebrae: Stable mild facet arthrosis, spondylosis and uncal spurring at multiple levels most notable at C5-C6. No fracture or subluxation. There is trace retrolisthesis likely degenerative's of C3 with respect to the levels above and below. Discs/spinal canal/neural foramina: Mild to moderate to space narrowing at all levels. Mild central disc bulge C2-C3. No stenosis. Mild osteophyte disc complex C3-C4 with minimal ventral thecal sac flattening. There is asymmetric left osteophyte and small disc bulge in the lateral recess with slight ventral canal narrowing. There is moderate left foraminal stenosis at this level. There is severe right foraminal stenosis C5-C6. Soft tissues: No significant abnormality noted. Lung apices: Paraseptal and centrilobular apical bullous emphysematous changes noted. IMPRESSION: Diffuse degenerative changes. No fracture. ACT 112: Negative or not required by law. Electronically signed by Marilee Lyon 11-21-2024 4:07 PM Chest X-Ray 11/21/24 13:50 EXAM: Radiograph of the Chest 1 View INDICATION: Traumatic hip fracture. TECHNIQUE: Frontal view of the chest. COMPARISON: No relevant prior studies available. FINDINGS: Lungs and pleural spaces: Prominent interstitial markings identified with relative paucity of vasculature in the upper lobes right greater than left typical of bullous change. No consolidation or pulmonary edema. No pleural effusion or pneumothorax. Heart: Shape and configuration within normal limits allowing for technique. Mediastinum: Normal contour. Bones/joints: No visible acute fracture. Soft tissues: No abnormality noted. No radiopaque foreign body noted. Vasculature: Ectatic aorta with moderate arch calcification. Upper abdomen: No abnormality noted. IMPRESSION: Chronic obstructive changes and interstitial thickening likely chronic. No acute abnormality. ACT 112: Negative or not required by law. Electronically signed by Marilee Lyon 11-21-2024 2:[address] 11/21/24 13:50 EXAM: CT Head Without Intravenous Contrast INDICATION: Trauma. TECHNIQUE: Axial computed tomography images of the head/brain without intravenous contrast. Sagittal and/or coronal reformats are provided. Sagittal and coronal reformatted images were created and reviewed. This CT exam was performed using one or more of the following dose reduction techniques: automated exposure control, adjustment of the mA and/or kV according to patient size, and/or use of iterative reconstruction technique. COMPARISON: 10/20/2024 FINDINGS: Limitations: None. Brain and extra-axial spaces: There is age appropriate cortical atrophy and chronic ischemic periventricular white matter hypodensity. No acute infarct, hemorrhage or mass noted. Bones/joints: No acute changes. Soft tissues: No significant abnormality noted. Vasculature: Intracranial carotid and left vertebral atherosclerotic calcification noted. Sinuses: No layering fluid in the visualized portions of the paranasal sinuses. Mastoid air cells: No mastoid effusion. Orbits: No significant abnormality noted. IMPRESSION: Cerebral atrophy. No acute changes. ACT 112: Negative or not required by law. Electronically signed by Marilee Lyon 11-21-2024 2:57 PM Hip/Pelvis X-Ray 11/21/24 13:50 EXAM: Radiographs of the Right Hip 3 Views INDICATION: Trauma. TECHNIQUE: Front view pelvis and AP and frog leg lateral views of the right hip. COMPARISON: No relevant prior studies available. FINDINGS: Limitations: None. Bones/joints: There is an acute minimally comminuted intertrochanteric fracture of the right femur without significant angulation. No dislocation. Visualized portion of left proximal femoral nail and locking bolt well-seated and intact. Soft tissues: No abnormality noted. No radiopaque foreign body noted. Gastrointestinal tract: Moderate amounts of stool noted in the visualized colonic segments. IMPRESSION: Acute intertrochanteric fracture of the right femur. ACT 112: Negative or not required by law. Electronically signed by Marilee Lyon 11-21-2024 2:30 PM
--- NOTE | 2024-11-22 12:09 | Hospitalist Progress Note ---
Date of Service November 22, 2024 Assessment & Plan (1) Intertrochanteric fracture of right femur: Plan Closed fracture of right femur Acute intertrochanteric fracture of right femur Fall Status post fall, due to noncompliance with using walker at snf. C-spine CT/CXR/head CT with no acute finding. Pain control, bowel regimen. Ortho consulted, appreciate recs -s/p surgery on 11/22 -can resume home lovenox PT/OT after surgery Acute Kidney Injury Cr 1.45 on admission IV Fluids, gentle Avoid nephrotoxic meds Continue to monitor Recent fall and Lt hip fracture: s/p repair, being rehabbed and on lovenox sc at snf. History of diabetes: Sliding scale insulin. Episodes of hypoglycemia, discontinue basal insulin at this time. Hold home metformin. Hgba1c of 7.1 Right great toe wound: on posterior aspect, no purulence noted, no s/s of infection noted. non tender, no erythema. Wound care consult. History of hypotension: On midodrine, continue GERD: On Protonix Tobacco abuse: Counseling done Elevated alk phosphate 392, chronically elevated in 200's. follow repeat labs Diet: hh/easy to chew DVT prophylaxis: Lovenox resumed Disposition: likely acute rehab DNR/DNI Admission and Anticipated Discharge Date Admission Date: November 21, 2024 Subjective patient was seen before his surgery Alert and oriented x 2 Stated that he was in a lot of pain Asking about timing of surgery Review of Systems Review of Systems: All systems reviewed & are unremarkable except as noted in Subjective Physical Exam Physical Exam: General: Alert, orientedx2. No acute distress Neuro: difficulty with moving in the bed HEENT: NC/AT CV: RRR Resp: no increased effort of breathing Abdomen: Soft, nontender Extremities: No edema in lower extremities bilaterally. Results & Data Results & Data Vital Signs (Past 12 Hours) Vital Signs Temp Pulse Resp BP Pulse Ox O2 Del Method 11/22/24 07:29 36.5 C 80 18 124/77 95 Room Air 11/22/24 06:03 80 16 119/74 95 Room Air Diagnostic Findings Cervical Spine CT 11/21/24 13:50 EXAM: CT Cervical Spine Without Intravenous Contrast INDICATION: Fall. TECHNIQUE: Axial computed tomography images of the cervical spine without intravenous contrast. Sagittal and coronal reformatted images were created and reviewed. This CT exam was performed using one or more of the following dose reduction techniques: automated exposure control, adjustment of the mA and/or kV according to patient size, and/or use of iterative reconstruction technique. COMPARISON: 10/20/2024 FINDINGS: Limitations: None. Vertebrae: Stable mild facet arthrosis, spondylosis and uncal spurring at multiple levels most notable at C5-C6. No fracture or subluxation. There is trace retrolisthesis likely degenerative's of C3 with respect to the levels above and below. Discs/spinal canal/neural foramina: Mild to moderate to space narrowing at all levels. Mild central disc bulge C2-C3. No stenosis. Mild osteophyte disc complex C3-C4 with minimal ventral thecal sac flattening. There is asymmetric left osteophyte and small disc bulge in the lateral recess with slight ventral canal narrowing. There is moderate left foraminal stenosis at this level. There is severe right foraminal stenosis C5-C6. Soft tissues: No significant abnormality noted. Lung apices: Paraseptal and centrilobular apical bullous emphysematous changes noted. IMPRESSION: Diffuse degenerative changes. No fracture. ACT 112: Negative or not required by law. Electronically signed by Marilee Lyon 11-21-2024 4:07 PM Chest X-Ray 11/21/24 13:50 EXAM: Radiograph of the Chest 1 View INDICATION: Traumatic hip fracture. TECHNIQUE: Frontal view of the chest. COMPARISON: No relevant prior studies available. FINDINGS: Lungs and pleural spaces: Prominent interstitial markings identified with relative paucity of vasculature in the upper lobes right greater than left typical of bullous change. No consolidation or pulmonary edema. No pleural effusion or pneumothorax. Heart: Shape and configuration within normal limits allowing for technique. Mediastinum: Normal contour. Bones/joints: No visible acute fracture. Soft tissues: No abnormality noted. No radiopaque foreign body noted. Vasculature: Ectatic aorta with moderate arch calcification. Upper abdomen: No abnormality noted. IMPRESSION: Chronic obstructive changes and interstitial thickening likely chronic. No acute abnormality. ACT 112: Negative or not required by law. Electronically signed by Marilee Lyon 11-21-2024 2:[address] 11/21/24 13:50 EXAM: CT Head Without Intravenous Contrast INDICATION: Trauma. TECHNIQUE: Axial computed tomography images of the head/brain without intravenous contrast. Sagittal and/or coronal reformats are provided. Sagittal and coronal reformatted images were created and reviewed. This CT exam was performed using one or more of the following dose reduction techniques: automated exposure control, adjustment of the mA and/or kV according to patient size, and/or use of iterative reconstruction technique. COMPARISON: 10/20/2024 FINDINGS: Limitations: None. Brain and extra-axial spaces: There is age appropriate cortical atrophy and chronic ischemic periventricular white matter hypodensity. No acute infarct, hemorrhage or mass noted. Bones/joints: No acute changes. Soft tissues: No significant abnormality noted. Vasculature: Intracranial carotid and left vertebral atherosclerotic calcification noted. Sinuses: No layering fluid in the visualized portions of the paranasal sinuses. Mastoid air cells: No mastoid effusion. Orbits: No significant abnormality noted. IMPRESSION: Cerebral atrophy. No acute changes. ACT 112: Negative or not required by law. Electronically signed by Marilee Lyon 11-21-2024 2:57 PM Hip/Pelvis X-Ray 11/21/24 13:50 EXAM: Radiographs of the Right Hip 3 Views INDICATION: Trauma. TECHNIQUE: Front view pelvis and AP and frog leg lateral views of the right hip. COMPARISON: No relevant prior studies available. FINDINGS: Limitations: None. Bones/joints: There is an acute minimally comminuted intertrochanteric fracture of the right femur without significant angulation. No dislocation. Visualized portion of left proximal femoral nail and locking bolt well-seated and intact. Soft tissues: No abnormality noted. No radiopaque foreign body noted. Gastrointestinal tract: Moderate amounts of stool noted in the visualized colonic segments. IMPRESSION: Acute intertrochanteric fracture of the right femur. ACT 112: Negative or not required by law. Electronically signed by Marilee Lyon 11-21-2024 2:30 PM
[2024-11-22] MEDS ORDERED: HYDROmorphone INJ 1 MG/ML SYRINGE IV PRN (12:18)
[2024-11-22] MEDS ORDERED: ePHEDrine sulfate 50 MG/ML AMP IV PRN (12:18)
[2024-11-22] MEDS ORDERED: ATROPINE SULFATE 0.1 MG/ML 10ML SYR IV PRN (12:18)
[2024-11-22] MEDS ORDERED: fentaNYL citrate PF 100 MCG/2 ML VIAL IV PRN (12:18)
[2024-11-22] MEDS ORDERED: ONDANSETRON INJ 2 MG/ML 2 ML VIAL IV PRN (12:18)
[2024-11-22] MEDS: ceFAZolin 2000MG 2,000 MG/15 ML SYR IV ONE (12:45)
[2024-11-22] MEDS: TRANEXAMIC ACID / 0.7% NACL 1,000 MG/100 ML BAG IV ONE (12:52)
[2024-11-22] MEDS ORDERED: PHENYLEPHRINE HCL 10 MG/ML VIAL ONE (13:20)
[2024-11-22] MEDS: BUPIVACAINE 0.5 % 5 MG/1 ML MPF 30ML VIAL ONE (14:03)
[2024-11-22] MEDS: LIDOCAINE 1%/EPINEPHRINE 1:100,000 50 ML VIAL INFIL ONE (14:05)
--- NOTE | 2024-11-22 14:11 | Post Operative Brief Note ---
Immediate Post Op Note Date of Surgery November 22, 2024 Pre & Post Diagnosis Operation Date: 11/22/24 10:30 Pre-Op Diagnosis: Intertrochanteric fracture of right femur Post-Op Diagnosis: Intertrochanteric fracture of right femur I identified the patient and participated in the time-out.: Yes Procedure Operation Date: 11/22/24 10:30 Actual Procedures p Right Hip Fracture Open Reduction Internal Fixation(Right) - Curry Smith MD Surgeon Curry Smith MD Crisis Therapist Mercy Grullon PA-C (No fellow avail) Estimated Blood Loss 70 Findings Consistent with Post-Op Diagnosis Fluids 700 cc Drains [place] Catheter (arrived to OR with [place] catheter intact) Anesthesia Type General Complications none
--- NOTE | 2024-11-22 14:12 | Operative Report ---
Post Operative Report Pre & Post Diagnosis Operation Date: 11/22/24 10:30 Pre-Op Diagnosis: Intertrochanteric fracture of right femur Post-Op Diagnosis: Intertrochanteric fracture of right femur I identified the patient and participated in the time-out.: Yes Procedure Operation Date: 11/22/24 10:30 Actual Procedures p Right Hip Fracture Open Reduction Internal Fixation(Right) - Curry Smith MD Surgeon Curry Smith MD Chainstitch Felled Seam Operator Mercy Grullon PA-C (No fellow avail) Estimated Blood Loss 70 Findings See Below Right intertrochanteric hip fracture, displaced Fluids 700 cc Specimens n/a Anesthesia Type General Complications none Indications The patient is a 74 year old male who sustained a right hip fracture from a ground level fall. The patients treatment options of conservative versus surgical intervention were discussed. Since the patient was an ambulatory prior to the injury and to avoid the risks of bed sores, pulmonary complications, and to give the best chance for ambulation, I recommended surgery. The patient understands the risks of surgery, which include but are not limited to: bleeding, infection, re-operation, damage to nerves and arteries, continued pain, failure of the hardware, mal-union, non-union, DVT, and . In addition, the patient is aware of the 20-30% morbidity associated with hip fracture for up to 1 year following a hip fracture. The patient understands all these instructions and explanations, all their questions have been satisfactorily addressed. The patient has elected to proceed with surgery ORIF right hip fracture and the informed consent was signed. Description of Procedure Mercy Grullon PA-C is assisting with positioning and closure due to fellow not available. IMPLANTS: 1) 12 mm short Troch nail (Synthes). 2) 12 x 90 mm Helical screw. 3) 5 x 40 mm Locking screw. Procedure: The patient was taken to the Operating Room and placed in the supine position on the fracture table after spinal anesthesia was administered. A multidisciplinary time-out was performed identifying my initials on the right lower limb as the correct and operative limb. Prior to the incision being made, 2 grams of intravenous Ancef were given. Fluoroscopy was brought in to ensure adequate x-rays images could be obtained. A reduction was performed with traction, adduction, and internal rotation of the operative limb. Once this was confirmed with Fluro, the right lower extremity was prepped in the standard fashion. The trochanter was marked as was the planned incision and trajectory of the helical screw. The incisions were injected with a 50:50 mixture of 1% Lidocaine plain and 0.5% Bupivacaine with epinephrine for a total of 13 cc. The planned incision proximal to the greater trochanter was made and carried down through the Tensor Fascia Ernestina to expose the tip of the greater trochanter and the starting position. A starting guide wire was placed and the starting reamer was used to create the entry hole for the short implant. A size 12 was selected. There was some resistance before the implant could be fully seated. It was removed and a long guide wire was placed and the shaft was sequentially reamed to 13mm. The implant was then re-inserted without difficulty. A second incision was made for placement of the helical blade and distal locking screw. These were placed through the aiming guide in the standard fashion. The Helical blade was locked in place. The traction was released and then the distal locking screw was placed. Final x-rays were obtained showing TAD of less than 25mm. The wounds were copiously irrigated. The Tensor Fascia Ernestina and IT band were closed with 0 Vicryl. The subcutaneous tissue was closed with 3-0 Vicryl. The skin was closed with cherri. The incisions were covered with Xeroform, 4x4s, ABD, and foam tape. The patient was transfer to her hospital bed and taken to the PACU in stable condition. The sponge and needle counts were correct. Post-op Instructions: The patient was re-admitted to the Hospitalist service to Med/Surg. The patient will be WBAT with a walker. The patient will be seen by PT/OT. Labs will be checked in the am. DVT prophylaxis will be with TEDs, mechanical devices and Lovenox will be re-started. I attest to the content of the Intraoperative Record and any orders documented therein. Any exceptions are noted below.
[2024-11-22] MEDS: DEXTROSE 50% 50 ML SYRINGE IV STA (14:35)
[2024-11-22] MEDS: FAMOTIDINE/PF 20 MG/2 ML VIAL IV ONE (14:56)
--- NOTE | 2024-11-22 15:18 | Anesthesiology Progress Note ---
Date of Service November 22, 2024 Anesthesia Post Procedure Vital Signs Vital Signs: Temp Pulse Pulse Pulse Resp BP BP 11/22/24 15:05 14 L 15 130/70 11/22/24 14:55 67 15 114/57 L 11/22/24 14:45 67 12 123/70 11/22/24 14:35 63 17 116/66 11/22/24 14:27 36.6 C 66 12 110/57 L 11/22/24 07:29 36.5 C 80 18 124/77 11/22/24 06:03 80 16 119/74 11/21/24 20:10 36.4 C L 65 16 123/74 11/21/24 19:41 63 18 122/74 11/21/24 19:23 19 107/61 11/21/24 17:40 87 Pulse Ox O2 Del Method O2 Flow Rate 11/22/24 15:05 93 Oxymask 2 11/22/24 14:55 98 Oxymask 2 11/22/24 14:45 99 Oxymask 4 11/22/24 14:35 98 Oxymask 6 11/22/24 14:27 95 Oxymask 8 11/22/24 07:29 95 Room Air 11/22/24 06:03 95 Room Air 11/21/24 20:10 94 Room Air 11/21/24 19:41 95 Room Air 11/21/24 19:23 93 Room Air 11/21/24 17:40 Pain Intensity Right Hip: Pain Intensity: 9 Transfer of Care Handoff Completed per policy Notes Mental Status: alert / awake / arousable and participated in evaluation Patient Amnestic to Procedure: Yes Nausea / Vomiting: adequately controlled Pain: adequately controlled Airway Patency, RR, SpO2: stable & adequate BP & HR: stable & adequate Hydration State: stable & adequate Anesthetic Complications: no major complications apparent and Pt Satisfied with anesthetic care
[2024-11-22] MEDS: ENOXAPARIN INJ 40 MG/0.4 ML SYR SQ SCH (16:45)
--- NOTE | 2024-11-22 17:04 | XRay Report ---
INDICATION: Postoperative evaluation. TECHNIQUE: 3 views of the right hip. COMPARISON: Radiograph from the prior day. FINDINGS/IMPRESSION: Right hip hardware appears intact transfixing right hip fracture. No new fracture or dislocation. Postoperative changes in the soft tissues. Electronically signed by Callum Kline 11-22-2024 5:03 PM
[2024-11-22] MEDS ORDERED: LANTUS PER UNIT CHARGE SQ SCH (21:00)
--- NOTE | 2024-11-22 23:00 | Orthopedic Progress Note ---
Date of Service November 22, 2024 Assessment & Plan (1) Intertrochanteric fracture of right femur: Plan: POD #0 s/p ORIF R hip fracture, doing as well as expected. Resume diet. WBAT with walker. OOB to chair. Continue pain control. Check labs tomorrow. DVT prophylaxis: TEDs 3 weeks, foot pumps while in hospital, Lovenox BID for 4 weeks. PT/OT. D/C planning. Dressing to be changed POD 2-3 Continue care per Hospitalist service. Admission and Anticipated Discharge Date Admission Date: November 21, 2024 Subjective Right hip pain Physical Exam Physical Exam: RLE: Dressings are clean, dry, intact. Sensation to light touch is diminished but unchanged. BCR < 2 sec. Able to wiggle toes and ankle. Calf soft and non- tender. Great toe dressing intact, dry, clean. Results & Data Vital Signs (Past 12 Hours) Vital Signs Temp Pulse Pulse Resp BP Pulse Ox O2 Del Method 11/22/24 21:15 97/60 L 11/22/24 19:16 36.5 C 86 16 97/60 L 95 Nasal Cannula 11/22/24 18:14 36.4 C L 96 H 16 109/71 95 Nasal Cannula 11/22/24 17:23 36.3 C L 78 16 104/66 97 Nasal Cannula 11/22/24 16:45 36.3 C L 76 14 113/70 97 Nasal Cannula 11/22/24 16:15 68 14 110/63 95 Nasal Cannula 11/22/24 16:00 36.2 C L 17 112/68 97 Nasal Cannula 11/22/24 15:50 69 18 116/68 97 Nasal Cannula 11/22/24 15:35 67 16 113/61 97 Nasal Cannula 11/22/24 15:20 65 15 119/70 95 Nasal Cannula 11/22/24 15:05 67 15 130/70 93 Oxymask 11/22/24 14:55 67 15 114/57 L 98 Oxymask 11/22/24 14:45 67 12 123/70 99 Oxymask 11/22/24 14:35 63 17 116/66 98 Oxymask 11/22/24 14:27 36.6 C 66 12 110/57 L 95 Oxymask O2 Flow Rate 11/22/24 21:15 11/22/24 19:16 2 11/22/24 18:14 2 11/22/24 17:23 2 11/22/24 16:45 2 11/22/24 16:15 3 11/22/24 16:00 2 11/22/24 15:50 2 11/22/24 15:35 2 11/22/24 15:20 2 11/22/24 15:05 2 11/22/24 14:55 2 11/22/24 14:45 4 11/22/24 14:35 6 11/22/24 14:27 8 Diagnostic Findings INDICATION: Postoperative evaluation. TECHNIQUE: 3 views of the right hip. COMPARISON: Radiograph from the prior day. FINDINGS/IMPRESSION: Right hip hardware appears intact transfixing right hip fracture. No new fracture or dislocation. Postoperative changes in the soft tissues. Electronically signed by Callum Kline 11-22-2024 5:03 PM
[2024-11-23 06:41] LABS: Basophils # (auto) 0.07 K/uL (0.00-0.20); Basophils % (auto) 0.5 %; Eosinophils # (auto) 0.01 K/uL (0.00-0.50); Eosinophils % (auto) 0.1 %; Hematocrit (blood only) 28.3 % (42.0-52.0); Hemoglobin 9.3 g/dl (14.0-18.0); Immature Granulocytes # (auto) 0.23 K/uL (0.01-0.20); Immature Granulocytes % (auto) 1.6 %; Lymphocytes # (auto) 2.06 K/uL (1.20-3.40); Lymphocytes % (auto) 14.3 %; Mean Corpuscular Hemoglobin 30.9 pg (25.0-34.0); Mean Corpuscular Hgb Conc 32.9 g/dL (32.0-36.0); Monocytes # (auto) 1.13 K/uL (0.11-0.59); Monocytes % (auto) 7.8 %; Neutrophils % (auto) 75.7 %; Platelet Count 248 K/uL (130-400); RDW Coefficient of Variation 14.2 % (11.5-14.5); RDW Standard Deviation 48.5 fL (36.4-46.3); Red Blood Count 3.01 M/uL (4.70-6.10)
[2024-11-23 07:02] LABS: BUN Creatinine Ratio 28.1 (10-20); Calcium 8.3 mg/dl (8.6-10.3); Magnesium 1.9 mg/dl (1.7-2.4); Phosphorus 4.6 mg/dl (2.5-4.9); Potassium 5.4 mmol/L (3.5-5.1)
--- NOTE | 2024-11-23 07:03 | Fluoroscopy Report ---
FL hip RT 2-3V CLINICAL HISTORY: RIGHT TROCHNAIL COMPARISON STUDY: Right hip radiographs of same day FLUOROSCOPY TIME: 73.6 seconds FLUOROSCOPY IMAGES: 5 EXPOSURE DOSE: 11.04 mGy FINDINGS: Intertrochanteric nail with medullary ozzy fixates the acute proximal femoral fracture. Ther e is near-anatomic alignment. A surgical sponge projects over the right femoral neck on the first shavon ge and is seen anterior to the proximal femoral diaphysis on the frog-leg views. Note that the images were submitted following completion of the surgery. IMPRESSION: Fluoroscopic assistance as above. ACT 112: Negative or not required by law. Electronically signed by: Martin Newton M.D. 11/23/2024 7:02 AM
--- NOTE | 2024-11-23 07:46 | Orthopedic Progress Note ---
Date of Service November 23, 2024 Assessment & Plan (1) Intertrochanteric fracture of right femur: Plan: POD #1 s/p ORIF R hip fracture, doing as well as expected. Resume diet. WBAT with walker. OOB to chair. Continue pain control. DVT prophylaxis: TEDs 3 weeks, foot pumps while in hospital, Lovenox BID for 4 weeks. PT/OT. D/C planning. Dressing to be changed POD 2-3 Continue care per Hospitalist service. Admission and Anticipated Discharge Date Admission Date: November 21, 2024 Subjective Sleeping comfortably. Easily aroused. No complaints this am. Physical Exam Physical Exam: RLE: Dressings are clean, dry, intact. Sensation to light touch is diminished but unchanged. BCR < 2 sec. Able to wiggle toes and ankle. Calf soft and non- tender. Great toe dressing intact, dry, clean. Results & Data Vital Signs (Past 12 Hours) Vital Signs Temp Pulse Resp BP Pulse Ox O2 Del Method O2 Flow Rate 11/23/24 04:14 92 H 94 Room Air 11/23/24 03:53 36.8 C 96 H 16 98/60 L 93 Room Air 11/22/24 23:52 36.3 C L 81 16 101/65 100 Nasal Cannula 2 11/22/24 21:15 97/60 L Laboratory Results 11/23/24 11/22/24 11/22/24 Range/Units 05:58 20:23 16:56 WBC 14.40 H (4.8-10.8) K/ul RBC 3.01 L (4.70-6.10) M/uL Hgb 9.3 L (14.0-18.0) g/dl Hct 28.3 L (42.0-52.0) % MCV 94.0 (80.0-100.0) fL MCH 30.9 (25.0-34.0) pg MCHC 32.9 (32.0-36.0) g/dL RDW Std Deviation 48.5 H (36.4-46.3) fL RDW Coeff of Cassia 14.2 (11.5-14.5) % Plt Count 248 (130-400) K/uL MPV 9.0 L (9.4-12.4) fL Immature Gran % (Auto) 1.6 % Neut % (Auto) 75.7 % Lymph % (Auto) 14.3 % [place] % (Auto) 7.8 % Eos % (Auto) 0.1 % Baso % (Auto) 0.5 % Neut # (Auto) 10.90 H (1.40-6.50) K/uL Lymph # (Auto) 2.06 (1.20-3.40) K/uL [place] # (Auto) 1.13 H (0.11-0.59) K/uL Eos # (Auto) 0.01 (0.00-0.50) K/uL Baso # (Auto) 0.07 (0.00-0.20) K/uL Immature Gran # (Auto) 0.23 H (0.01-0.20) K/uL Sodium 133 L (136-145) mmol/L Potassium 5.4 H (3.5-5.1) mmol/L Chloride 103 (98-107) mmol/L Carbon Dioxide 23 (21-32) mmol/L Anion Gap 7 (3-11) BUN 39 H (6-23) mg/dl Creatinine 1.39 (0.6-1.4) mg/dl Est Cr Clr Drug Dosing 38.0 ml/min eGFR 52.87 BUN/Creatinine Ratio 28.1 H (10-20) Glucose 202 H (70-99(Fasting)) mg/dl POC Glucose 217 H 158 H (70-99) mg/dl Estimat Average Glucose mg/dl Hemoglobin A1c (4.5-5.6) % Calcium 8.3 L (8.6-10.3) mg/dl Phosphorus 4.6 (2.5-4.9) mg/dl Magnesium 1.9 (1.7-2.4) mg/dl 25-OH Vitamin D Total 32.7 (30-100) ng/ml 11/22/24 11/22/24 11/22/24 Range/Units 14:51 14:30 11:46 WBC (4.8-10.8) K/ul RBC (4.70-6.10) M/uL Hgb (14.0-18.0) g/dl Hct (42.0-52.0) % MCV (80.0-100.0) fL MCH (25.0-34.0) pg MCHC (32.0-36.0) g/dL RDW Std Deviation (36.4-46.3) fL RDW Coeff of Cassia (11.5-14.5) % Plt Count (130-400) K/uL MPV (9.4-12.4) fL Immature Gran % (Auto) % Neut % (Auto) % Lymph % (Auto) % [place] % (Auto) % Eos % (Auto) % Baso % (Auto) % Neut # (Auto) (1.40-6.50) K/uL Lymph # (Auto) (1.20-3.40) K/uL [place] # (Auto) (0.11-0.59) K/uL Eos # (Auto) (0.00-0.50) K/uL Baso # (Auto) (0.00-0.20) K/uL Immature Gran # (Auto) (0.01-0.20) K/uL Sodium (136-145) mmol/L Potassium (3.5-5.1) mmol/L Chloride (98-107) mmol/L Carbon Dioxide (21-32) mmol/L Anion Gap (3-11) BUN (6-23) mg/dl Creatinine (0.6-1.4) mg/dl Est Cr Clr Drug Dosing ml/min eGFR BUN/Creatinine Ratio (10-20) Glucose (70-99(Fasting)) mg/dl POC Glucose 200 H 61 L* 117 H (70-99) mg/dl Estimat Average Glucose mg/dl Hemoglobin A1c (4.5-5.6) % Calcium (8.6-10.3) mg/dl Phosphorus (2.5-4.9) mg/dl Magnesium (1.7-2.4) mg/dl 25-OH Vitamin D Total (30-100) ng/ml 11/22/24 11/22/24 11/22/24 Range/Units 11:23 11:21 05:33 WBC (4.8-10.8) K/ul RBC (4.70-6.10) M/uL Hgb (14.0-18.0) g/dl Hct (42.0-52.0) % MCV (80.0-100.0) fL MCH (25.0-34.0) pg MCHC (32.0-36.0) g/dL RDW Std Deviation (36.4-46.3) fL RDW Coeff of Cassia (11.5-14.5) % Plt Count (130-400) K/uL MPV (9.4-12.4) fL Immature Gran % (Auto) % Neut % (Auto) % Lymph % (Auto) % [place] % (Auto) % Eos % (Auto) % Baso % (Auto) % Neut # (Auto) (1.40-6.50) K/uL Lymph # (Auto) (1.20-3.40) K/uL [place] # (Auto) (0.11-0.59) K/uL Eos # (Auto) (0.00-0.50) K/uL Baso # (Auto) (0.00-0.20) K/uL Immature Gran # (Auto) (0.01-0.20) K/uL Sodium (136-145) mmol/L Potassium (3.5-5.1) mmol/L Chloride (98-107) mmol/L Carbon Dioxide (21-32) mmol/L Anion Gap (3-11) BUN (6-23) mg/dl Creatinine (0.6-1.4) mg/dl Est Cr Clr Drug Dosing ml/min eGFR BUN/Creatinine Ratio (10-20) Glucose (70-99(Fasting)) mg/dl POC Glucose 54 L* 58 L* (70-99) mg/dl Estimat Average Glucose 157 mg/dl Hemoglobin A1c 7.1 H (4.5-5.6) % Calcium (8.6-10.3) mg/dl Phosphorus (2.5-4.9) mg/dl Magnesium (1.7-2.4) mg/dl 25-OH Vitamin D Total (30-100) ng/ml
--- NOTE | 2024-11-23 11:36 | Hospitalist Progress Note ---
Date of Service November 23, 2024 Assessment & Plan (1) Intertrochanteric fracture of right femur: Plan Closed fracture of right femur Acute intertrochanteric fracture of right femur Fall Status post fall, reportedly due to noncompliance with using walker at snf. C-spine CT/CXR/head CT with no acute finding. Right hip x-ray noting acute intertrochanteric fracture of the right femur Pain control, bowel regimen. Ortho consulted, appreciate recs -s/p surgery on 11/22 -can resume home lovenox PT/OT after surgery Acute Kidney Injury Cr 1.45 on admission IV Fluids, gentle Avoid nephrotoxic meds Continue to monitor Acute Blood Loss Anemia preop hemoglobin in the 11 range, has since downtrended to 9 range likely in the setting of being postop A.m. anemia panel Continue to monitor Continue home Lovenox at this time Recent fall and Lt hip fracture: s/p repair, being rehabbed and on lovenox sc at [facility]. History of diabetes: Sliding scale insulin. Episodes of hypoglycemia, disc ontinue basal insulin at this time. Hold home metformin. Hgba1c of 7.1 Right great toe wound: on posterior aspect, no purulence noted, no s/s of infection noted. non tender, no erythema. Wound care consult. History of hypotension: On midodrine, continue GERD: On Protonix Tobacco abuse: Counseling done Elevated alk phosphate 392, chronically elevated in 200's. follow repeat labs Diet: hh/easy to chew DVT prophylaxis: Lovenox resumed Disposition: likely acute rehab DNR/DNI Admission and Anticipated Discharge Date Admission Date: November 21, 2024 Subjective Patient was seen laying in bed in the a.m. Not easily arousable resting comfortably Review of Systems Review of Systems: All systems reviewed & are unremarkable except as noted in Subjective Physical Exam Physical Exam: General: No acute distress Neuro: difficulty with moving in the bed HEENT: NC/AT CV: RRR Resp: no increased effort of breathing Abdomen: Soft, nontender Extremities: No edema in lower extremities bilaterally. Results & Data Results & Data Vital Signs (Past 12 Hours) Vital Signs Temp Pulse Pulse Resp BP Pulse Ox O2 Del Method 11/23/24 09:25 100/74 11/23/24 07:55 36.6 C 86 14 90/48 L 93 Room Air 11/23/24 04:14 92 H 94 Room Air 11/23/24 03:53 36.8 C 96 H 16 98/60 L 93 Room Air 11/22/24 23:52 36.3 C L 81 16 101/65 100 Nasal Cannula O2 Flow Rate 11/23/24 09:25 11/23/24 07:55 11/23/24 04:14 11/23/24 03:53 11/22/24 23:52 2 Diagnostic Findings Cervical Spine CT 11/21/24 13:50 EXAM: CT Cervical Spine Without Intravenous Contrast INDICATION: Fall. TECHNIQUE: Axial computed tomography images of the cervical spine without intravenous contrast. Sagittal and coronal reformatted images were created and reviewed. This CT exam was performed using one or more of the following dose reduction techniques: automated exposure control, adjustment of the mA and/or kV according to patient size, and/or use of iterative reconstruction technique. COMPARISON: 10/20/2024 FINDINGS: Limitations: None. Vertebrae: Stable mild facet arthrosis, spondylosis and uncal spurring at multiple levels most notable at C5-C6. No fracture or subluxation. There is trace retrolisthesis likely degenerative's of C3 with respect to the levels above and below. Discs/spinal canal/neural foramina: Mild to moderate to space narrowing at all levels. Mild central disc bulge C2-C3. No stenosis. Mild osteophyte disc complex C3-C4 with minimal ventral thecal sac flattening. There is asymmetric left osteophyte and small disc bulge in the lateral recess with slight ventral canal narrowing. There is moderate left foraminal stenosis at this level. There is severe right foraminal stenosis C5-C6. Soft tissues: No significant abnormality noted. Lung apices: Paraseptal and centrilobular apical bullous emphysematous changes noted. IMPRESSION: Diffuse degenerative changes. No fracture. ACT 112: Negative or not required by law. Electronically signed by Marilee Lyon 11-21-2024 4:07 PM Chest X-Ray 11/21/24 13:50 EXAM: Radiograph of the Chest 1 View INDICATION: Traumatic hip fracture. TECHNIQUE: Frontal view of the chest. COMPARISON: No relevant prior studies available. FINDINGS: Lungs and pleural spaces: Prominent interstitial markings identified with relative paucity of vasculature in the upper lobes right greater than left typical of bullous change. No consolidation or pulmonary edema. No pleural effusion or pneumothorax. Heart: Shape and configuration within normal limits allowing for technique. Mediastinum: Normal contour. Bones/joints: No visible acute fracture. Soft tissues: No abnormality noted. No radiopaque foreign body noted. Vasculature: Ectatic aorta with moderate arch calcification. Upper abdomen: No abnormality noted. IMPRESSION: Chronic obstructive changes and interstitial thickening likely chronic. No acute abnormality. ACT 112: Negative or not required by law. Electronically signed by Marilee Lyon 11-21-2024 2:[address] 11/21/24 13:50 EXAM: CT Head Without Intravenous Contrast INDICATION: Trauma. TECHNIQUE: Axial computed tomography images of the head/brain without intravenous contrast. Sagittal and/or coronal reformats are provided. Sagittal and coronal reformatted images were created and reviewed. This CT exam was performed using one or more of the following dose reduction techniques: automated exposure control, adjustment of the mA and/or kV according to patient size, and/or use of iterative reconstruction technique. COMPARISON: 10/20/2024 FINDINGS: Limitations: None. Brain and extra-axial spaces: There is age appropriate cortical atrophy and chronic ischemic periventricular white matter hypodensity. No acute infarct, hemorrhage or mass noted. Bones/joints: No acute changes. Soft tissues: No significant abnormality noted. Vasculature: Intracranial carotid and left vertebral atherosclerotic calcification noted. Sinuses: No layering fluid in the visualized portions of the paranasal sinuses. Mastoid air cells: No mastoid effusion. Orbits: No significant abnormality noted. IMPRESSION: Cerebral atrophy. No acute changes. ACT 112: Negative or not required by law. Electronically signed by Marilee Lyon 11-21-2024 2:57 PM Hip/Pelvis X-Ray 11/21/24 13:50 EXAM: Radiographs of the Right Hip 3 Views INDICATION: Trauma. TECHNIQUE: Front view pelvis and AP and frog leg lateral views of the right hip. COMPARISON: No relevant prior studies available. FINDINGS: Limitations: None. Bones/joints: There is an acute minimally comminuted intertrochanteric fracture of the right femur without significant angulation. No dislocation. Visualized portion of left proximal femoral nail and locking bolt well-seated and intact. Soft tissues: No abnormality noted. No radiopaque foreign body noted. Gastrointestinal tract: Moderate amounts of stool noted in the visualized colonic segments. IMPRESSION: Acute intertrochanteric fracture of the right femur. ACT 112: Negative or not required by law. Electronically signed by Marilee Lyon 11-21-2024 2:30 PM Hip X-Ray 11/22/24 07:00 FL hip RT 2-3V CLINICAL HISTORY: RIGHT TROCHNAIL COMPARISON STUDY: Right hip radiographs of same day FLUOROSCOPY TIME: 73.6 seconds FLUOROSCOPY IMAGES: 5 EXPOSURE DOSE: 11.04 mGy FINDINGS: Intertrochanteric nail with medullary ozzy fixates the acute proximal femoral fracture. There is near-anatomic alignment. A surgical sponge projects over the right femoral neck on the first image and is seen anterior to the proximal femoral diaphysis on the frog-leg views. Note that the images were submitted following completion of the surgery. IMPRESSION: Fluoroscopic assistance as above. ACT 112: Negative or not required by law. Electronically signed by: Martin Newton M.D. 11/23/2024 7:02 AM Hip X-Ray 11/22/24 16:18 INDICATION: Postoperative evaluation. TECHNIQUE: 3 views of the right hip. COMPARISON: Radiograph from the prior day. FINDINGS/IMPRESSION: Right hip hardware appears intact transfixing right hip fracture. No new fracture or dislocation. Postoperative changes in the soft tissues. Electronically signed by Callum Kline 11-22-2024 5:03 PM
[2024-11-23 19:53] VITALS: RESP 16
[2024-11-24 07:09] LABS: Basophils # (auto) 0.05 K/uL (0.00-0.20); Basophils % (auto) 0.5 %; Eosinophils # (auto) 0.19 K/uL (0.00-0.50); Eosinophils % (auto) 1.8 %; Hematocrit (blood only) 24.5 % (42.0-52.0); Hemoglobin 8.2 g/dl (14.0-18.0); Immature Granulocytes # (auto) 0.16 K/uL (0.01-0.20); Immature Granulocytes % (auto) 1.5 %; Lymphocytes # (auto) 2.53 K/uL (1.20-3.40); Lymphocytes % (auto) 23.6 %; Mean Corpuscular Hemoglobin 31.3 pg (25.0-34.0); Mean Corpuscular Hgb Conc 33.5 g/dL (32.0-36.0); Mean Corpuscular Volume 93.5 fL (80.0-100.0); Monocytes # (auto) 0.91 K/uL (0.11-0.59); Monocytes % (auto) 8.5 %; Neutrophils % (auto) 64.1 %; Nucleated RBC # (auto) 0.02 K/uL (0.00-0.12); Nucleated RBC % (auto) 0.2 %; Platelet Count 223 K/uL (130-400); RDW Coefficient of Variation 14.1 % (11.5-14.5); RDW Standard Deviation 47.8 fL (36.4-46.3); Red Blood Count 2.62 M/uL (4.70-6.10); White Blood Count 10.74 K/ul (4.8-10.8)
[2024-11-24 07:27] LABS: BUN Creatinine Ratio 27.8 (10-20); Calcium 7.7 mg/dl (8.6-10.3); Creatinine Clr Calc Pharmacy 32.6 ml/min; Magnesium 1.7 mg/dl (1.7-2.4); Phosphorus 3.5 mg/dl (2.5-4.9); Potassium 4.9 mmol/L (3.5-5.1)
[2024-11-24 07:44] LABS: Ferritin 519.3 ng/ml (8-388); Folate (Folic Acid),Ser orPlas 10.23 ng/ml (>5.38)
[2024-11-24] MEDS: POLYETHYLENE (MIRALAX) 17 GM PACK PO PRN (09:13)
[2024-11-24] MEDS: SODIUM CHLORIDE 0.9% 1,000 ML IV SCH (09:44)
--- NOTE | 2024-11-24 11:43 | Orthopedic Progress Note ---
Date of Service November 24, 2024 Assessment & Plan (1) Intertrochanteric fracture of right femur: Plan: POD #2 s/p ORIF R hip fracture, limited by pain currently. Nursing was working on getting him additional pain medication. He was having a difficult time work ing with OT today when I evaluated him. Dressing change performed today with xeroform, 4x4 gauze, and tegaderm. Wounds do not show any evidence of infection or dehiscence. No drainage now. Dressings can be changed on an as needed basis. Can get wet in shower, do not submerge. Hemoglobin 8.2 today likely secondary to acute blood loss anemia, continue to monitor to ensure it does not continue to fall. WBAT with walker. OOB to chair. Continue pain control. DVT prophylaxis: TEDs 3 weeks, foot pumps while in hospital, Lovenox BID for 4 weeks. PT/OT. D/C planning. Will likely require rehab. Continue care per Hospitalist service. Admission and Anticipated Discharge Date Admission Date: November 21, 2024 Subjective Patient seen in bed today. He had begun participating with occupational therapy however was having a lot of pain in the right hip so was awaiting oral pain medication from nursing as his IV was not functioning properly. Denies any numbness or tingling in his toes. Physical Exam Constitutional: Conversational. Sitting upright in bed with legs hanging off the side. Appears to be in a mild amount of pain with changes in position secondary to the right hip. Cardiovascular: Right DP pulse 2+ Musculoskeletal: Right hip. Compressive dressing removed today. lateral hip and thigh incisions with scant dried blood. There is no dehiscence, cherri are in place. No surrounding erythema. Small dependent ecchymotic changes posterior to the proximal incision. No induration in the hip or thigh. Strength 5/5 with resisted ankle plantarflexion, dorsiflexion, and inversion. Pain elicited in the hip with resisted ankle eversion. Able to actively extend the knee to about 10 degrees shy of full extension. Unable to perform straight leg raise. Neurologic: No sensory deficits in right toes to light touch Results & Data Vital Signs (Past 12 Hours) Vital Signs Temp Pulse Resp BP Pulse Ox O2 Del Method 11/24/24 08:30 Room Air 11/24/24 07:13 97.5 F L 80 16 102/63 92 Room Air 11/24/24 00:19 87 107/65 Laboratory Results 11/24/24 11/24/24 11/24/24 11:23 07:45 06:15 WBC 10.74 RBC 2.62 L Hgb 8.2 L Hct 24.5 L MCV 93.5 MCH 31.3 MCHC 33.5 RDW Std Deviation 47.8 H RDW Coeff of Cassia 14.1 Plt Count 223 MPV 9.0 L Immature Gran % (Auto) 1.5 Neut % (Auto) 64.1 Lymph % (Auto) 23.6 [place] % (Auto) 8.5 Eos % (Auto) 1.8 Baso % (Auto) 0.5 Neut # (Auto) 6.90 H Lymph # (Auto) 2.53 [place] # (Auto) 0.91 H Eos # (Auto) 0.19 Baso # (Auto) 0.05 Immature Gran # (Auto) 0.16 Absolute Nucleated RBC 0.02 Nucleated RBC % (auto) 0.2 Sodium 131 L Potassium 4.9 Chloride 100 Carbon Dioxide 24 Anion Gap 7 BUN 45 H Creatinine 1.62 H Est Cr Clr Drug Dosing 32.6 eGFR 43.99 BUN/Creatinine Ratio 27.8 H Glucose 274 H POC Glucose 96 300 H Calcium 7.7 L Phosphorus 3.5 D Magnesium 1.7 Iron 57 TIBC 221 L Transferrin 158 L Transferrin % Sat 26 Ferritin 519.3 H Vitamin B12 342 Folate 10.23 11/23/24 11/23/24 11/23/24 21:11 21:10 20:58 WBC RBC Hgb Hct MCV MCH MCHC RDW Std Deviation RDW Coeff of Cassia Plt Count MPV Immature Gran % (Auto) Neut % (Auto) Lymph % (Auto) [place] % (Auto) Eos % (Auto) Baso % (Auto) Neut # (Auto) Lymph # (Auto) [place] # (Auto) Eos # (Auto) Baso # (Auto) Immature Gran # (Auto) Absolute Nucleated RBC Nucleated RBC % (auto) Sodium Potassium Chloride Carbon Dioxide Anion Gap BUN Creatinine Est Cr Clr Drug Dosing eGFR BUN/Creatinine Ratio Glucose POC Glucose 298 H 281 H 334 H* Calcium Phosphorus Magnesium Iron TIBC Transferrin Transferrin % Sat Ferritin Vitamin B12 Folate 11/23/24 11/23/24 16:25 11:49 WBC RBC Hgb Hct MCV MCH MCHC RDW Std Deviation RDW Coeff of Cassia Plt Count MPV Immature Gran % (Auto) Neut % (Auto) Lymph % (Auto) [place] % (Auto) Eos % (Auto) Baso % (Auto) Neut # (Auto) Lymph # (Auto) [place] # (Auto) Eos # (Auto) Baso # (Auto) Immature Gran # (Auto) Absolute Nucleated RBC Nucleated RBC % (auto) Sodium Potassium Chloride Carbon Dioxide Anion Gap BUN Creatinine Est Cr Clr Drug Dosing eGFR BUN/Creatinine Ratio Glucose POC Glucose 187 H 121 H Calcium Phosphorus Magnesium Iron TIBC Transferrin Transferrin % Sat Ferritin Vitamin B12 Folate
--- NOTE | 2024-11-24 12:02 | Hospitalist Progress Note ---
Date of Service November 24, 2024 Assessment & Plan (1) Intertrochanteric fracture of right femur: Plan Closed fracture of right femur Acute intertrochanteric fracture of right femur Fall Status post fall, reportedly due to noncompliance with using walker at snf. C-spine CT/CXR/head CT with no acute finding. Right hip x-ray noting acute intertrochanteric fracture of the right femur Pain control, bowel regimen. Ortho consulted, appreciate recs -s/p surgery on 11/22 -can resume home lovenox PT/OT after surgery Currently awaiting rehab placement Acute Kidney Injury Cr 1.45 on admission IV Fluids, gentle Avoid nephrotoxic meds Continue to monitor 11/24/24- worsening CARLO, IV fluids again Acute Blood Loss Anemia Preop hemoglobin in the 11 range, has since downtrended to 9 range Likely in the setting of being postop Anemia panel- iron levels normal, b12 and folate levels normal Continue to monitor Continue home Lovenox at this time Hgb down to 8.2 Continue to monitor Recent fall and Lt hip fracture: s/p repair, being rehabbed and on lovenox sc at [facility]. History of diabetes: Sliding scale insulin. Episodes of hypoglycemia, discontinue basal insulin at this time. Hold home metformin. Hgba1c of 7.1 Right great toe wound: on posterior aspect, no purulence noted, no s/s of infection noted. non tender, no erythema. Wound care consult. History of hypotension: On midodrine, continue GERD: On Protonix Tobacco abuse: Counseling done Elevated alk phosphate 392, chronically elevated in 200's. follow repeat labs Diet: hh/easy to chew DVT prophylaxis: Lovenox resumed Disposition: likely acute rehab DNR/DNI Admission and Anticipated Discharge Date Admission Date: November 21, 2024 Subjective pt was seen sitting up in bed Nursing at bedside, working on his catheter Denied acute concerns otherwise Review of Systems Review of Systems: All systems reviewed & are unremarkable except as noted in Subjective Physical Exam Physical Exam: General: No acute distress Neuro: difficulty with moving in the bed HEENT: NC/AT CV: RRR Resp: no increased effort of breathing Abdomen: Soft, nontender Extremities: No edema in lower extremities bilaterally. Results & Data Results & Data Vital Signs (Past 12 Hours) Vital Signs Temp Pulse Resp BP Pulse Ox O2 Del Method 02/11/25 08:30 Room Air 11/24/24 07:13 36.4 C L 80 16 102/63 92 Room Air 11/24/24 00:19 87 107/65
[2024-11-24] MEDS: ONDANSETRON INJ 2 MG/ML 2 ML VIAL IV PRN (13:39)
[2024-11-24 14:18] VITALS: BP 108/65; PULSE 78; TEMP 97.7; O2SAT 93
--- NOTE | 2024-11-24 14:25 | Discharge Summary ---
Discharge Summary Date of Service November 24, 2024 Principal Dx & Hospital Course #1 = Principal Diagnosis (1) Intertrochanteric fracture of right femur: Plan Closed fracture of right femur Acute intertrochanteric fracture of right femur Fall Status post fall, reportedly due to noncompliance with using walker at [facility]. C-spine CT/CXR/head CT with no acute finding. Right hip x-ray noting acute intertrochanteric fracture of the right femur Pain control, bowel regimen. Ortho consulted, appreciate recs -s/p surgery on 11/22 -can resume home lovenox 40mg daily (pt with low BMI, 19, very thin), fall risk -"...per orthopedics "POD #2 s/p ORIF R hip fracture, limited by pain currently. Nursing was working on getting him additional pain medication. He was having a difficult time working with OT today when I evaluated him. Dressing change performed today with xeroform, 4x4 gauze, and tegaderm. Wounds do not show any evidence of infection or dehiscence. No drainage now. Dressings can be changed on an as needed basis. Can get wet in shower, do not submerge. Hemoglobin 8.2 today likely secondary to acute blood loss anemia, continue to monitor to ensure it does not continue to fall. WBAT with walker. OOB to chair. Continue pain control..." PT/OT after surgery recommending acute rehab Pt discharged to [facility] Acute Kidney Injury Cr 1.45 on admission IV Fluids, gentle Avoid nephrotoxic meds Continue to monitor 11/24/24- worsening CARLO, s/p IV fluids again, continue to monitor closely after discharge. Please repeat BMP the day after discharge and ensure continued downtrend. Acute Blood Loss Anemia Preop hemoglobin in the 11 range, has since downtrended to 9 range Likely in the setting of being postop Anemia panel- iron levels normal, b12 and folate levels normal Continue to monitor Continue home Lovenox at this time Hgb down to 8.2 Continue to monitor after discharge. Please repeat CBC the day after discharge and ensure stability. Recent fall and Lt hip fracture: s/p repair, being rehabbed and on lovenox sc at [facility]. History of diabetes: Sliding scale insulin. Episodes of hypoglycemia, discontinue basal insulin at this time. Hold home metformin. Hgba1c of 7.1 Right great toe wound: on posterior aspect, no purulence noted, no s/s of infection noted. non tender, no erythema. Wound care consult. History of hypotension: On midodrine, continue GERD: On Protonix Tobacco abuse: Counseling done Elevated alk phosphate 392, chronically elevated in 200's. follow repeat labs Diet: hh/easy to chew DVT prophylaxis: Lovenox resumed Disposition: likely acute rehab DNR/DNI Notes For Next Care Provider Please repeat BMP the day after discharge and ensure continued downtrend. IV fluids as needed Please repeat CBC the day after discharge and ensure stability. Please ensure fall precautions are in place. Pt is a very high fall risk (falls with fracture of both hips requiring repair of both hips in the last 2 months) Medication Changes From Visit Lovenox 40mg daily renewed for DVT prophylaxis. (Pt with low BMI and very high fall risk (falls with fracture of both hips requiring repair of both hips in the last 2 months) Admission HPI Per Admitting Provider 74-year-old male with PMH of diabetes, hypertension on midodrine, GERD presents with fall and right hip pain, noted to have right intertrochanteric fracture in the ED. Patient was recently admitted 10/21/2024 for left hip fracture, which was repaired and patient was discharged to SNF. Per staff, patient is supposed to use walker but he continues to walk and transfer himself independently and has fallen 2-3 times during the stay so far. Similarly while he was not using walker today in bathroom, he lost balance and fell and hit his right hip. He does not appear to have hit his head though fall was unwitnessed per staff. Patient denies fever/sore throat/cough/chest pain/belly pain/pain and burning while passing urine. Patient reports normal appetite and bowel habit. Patient reports smoking 1 packs a day for most of his life, denies alcohol/recreational drugs. DNI/DNI: Discussed with the patient and also I discussed with patient's son over the phone. Medications reviewed with [facility] living over the phone. Plan of care discussed with patient at bedside and patient's son over the phone. Admission Exam Per Admitting Provider GENERAL: Alert and oriented x3. NAD, on RA. Appear old/frail/weak. HEENT: No pallor, no icterus. Pupils equal, round and reactive to light. Oral mucosa moist. NECK: No JVD, no neck masses. HEART: S1 and S2 heard. Regular rate and rhythm. No murmur, no gallop. RESPIRATORY SYSTEM: Normal AP diameter. No accessory muscle use. No wheezing, no crackles. ABDOMEN: Soft, bowel sounds present, nontender, no distention. CENTRAL NERVOUS SYSTEM: No facial droop. Speech is clear. Obeys simple commands. Moves extremities. EXTREMITIES: No edema, no erythema seen. LLE hip repair site w/ healthy healed surgical scar. RLE hip painful rom, RLE ext rotated and short. Rt great toe base w/ unstageable 0.5 cm x 0.5 cm ulcer w/ clean base and no erythema or purulence noted. b/l dorsalis pedis pulse palpable. UC in situ, light yellow urine in bag noted. Discharge Exam General: No acute distress Neuro: difficulty with moving in the bed HEENT: NC/AT CV: RRR Resp: no increased effort of breathing Abdomen: Soft, nontender Extremities: tenderness over right hip Updated Medication List Medication Instructions Recorded Confirmed Type cholecalciferol (vitamin D3) 125 125 mcg PO HS 06/18/23 11/21/24 History mcg (5,000 unit) tablet (Vitamin D3) metformin 1,000 mg tablet 1,000 mg PO .DAILY AFTER SUPPER 06/18/23 11/21/24 History insulin aspart U-100 100 unit/mL 1 sliding scale dose subcut AC 02/21/24 11/21/24 History (3 mL) subcutaneous pen (Novolog FlexPen U-100 Insulin aspart) insulin glargine 100 unit/mL (3 6 unit subcut QAM 02/21/24 11/21/24 History mL) subcutaneous pen (Lantus Solostar U-100 Insulin) pantoprazole 20 mg tablet,delayed 20 mg PO DAILYBB 02/21/24 11/21/24 History release midodrine 5 mg tablet 5 mg PO TID #90 tabs 03/06/24 11/21/24 Rx clobetasol 0.05 % topical cream 1 applic topical UD 10/20/24 11/21/24 History clotrimazole-betamethasone 1 1 applic topical BID 10/20/24 11/21/24 History %-0.05 % topical cream gabapentin 300 mg capsule 300 mg PO TID 10/20/24 11/21/24 History tramadol 50 mg tablet 50 mg PO Q6 PRN pain #30 tabs 10/24/24 Rx enoxaparin 40 mg/0.4 mL 40 mg (0.4 mL) subcut DAILY 30 11/24/24 Rx subcutaneous syringe (Lovenox) days #12 mL Hospital Stay Data Consultations 11/21/24 14:53 ED Decision to Admit Stat 11/21/24 16:23 Consult Orthopedic Surgery Routine Procedures Performed Operation Date: 11/22/24 10:30 Actual Procedures p Right Hip Fracture Open Reduction Internal Fixation(Right) - Curry Gurinder Smith MD Diagnostic Imagining Performed 11/21/24 13:50 CT cervical spine wo con Stat CT head/brain wo con Stat 11/22/24 07:00 FL hip RT 2-3V Routine Cervical Spine CT 11/21/24 13:50 EXAM: CT Cervical Spine Without Intravenous Contrast INDICATION: Fall. TECHNIQUE: Axial computed tomography images of the cervical spine without intravenous contrast. Sagittal and coronal reformatted images were created and reviewed. This CT exam was performed using one or more of the following dose reduction techniques: automated exposure control, adjustment of the mA and/or kV according to patient size, and/or use of iterative reconstruction technique. COMPARISON: 10/20/2024 FINDINGS: Limitations: None. Vertebrae: Stable mild facet arthrosis, spondylosis and uncal spurring at multiple levels most notable at C5-C6. No fracture or subluxation. There is trace retrolisthesis likely degenerative's of C3 with respect to the levels above and below. Discs/spinal canal/neural foramina: Mild to moderate to space narrowing at all levels. Mild central disc bulge C2-C3. No stenosis. Mild osteophyte disc complex C3-C4 with minimal ventral thecal sac flattening. There is asymmetric left osteophyte and small disc bulge in the lateral recess with slight ventral canal narrowing. There is moderate left foraminal stenosis at this level. There is severe right foraminal stenosis C5-C6. Soft tissues: No significant abnormality noted. Lung apices: Paraseptal and centrilobular apical bullous emphysematous changes noted. IMPRESSION: Diffuse degenerative changes. No fracture. ACT 112: Negative or not required by law. Electronically signed by Marilee Lyon 11-21-2024 4:07 PM Chest X-Ray 11/21/24 13:50 EXAM: Radiograph of the Chest 1 View INDICATION: Traumatic hip fracture. TECHNIQUE: Frontal view of the chest. COMPARISON: No relevant prior studies available. FINDINGS: Lungs and pleural spaces: Prominent interstitial markings identified with relative paucity of vasculature in the upper lobes right greater than left typical of bullous change. No consolidation or pulmonary edema. No pleural effusion or pneumothorax. Heart: Shape and configuration within normal limits allowing for technique. Mediastinum: Normal contour. Bones/joints: No visible acute fracture. Soft tissues: No abnormality noted. No radiopaque foreign body noted. Vasculature: Ectatic aorta with moderate arch calcification. Upper abdomen: No abnormality noted. IMPRESSION: Chronic obstructive changes and interstitial thickening likely chronic. No acute abnormality. ACT 112: Negative or not required by law. Electronically signed by Marilee Lyon 11-21-2024 2:[address] 11/21/24 13:50 EXAM: CT Head Without Intravenous Contrast INDICATION: Trauma. TECHNIQUE: Axial computed tomography images of the head/brain without intravenous contrast. Sagittal and/or coronal reformats are provided. Sagittal and coronal reformatted images were created and reviewed. This CT exam was performed using one or more of the following dose reduction techniques: automated exposure control, adjustment of the mA and/or kV according to patient size, and/or use of iterative reconstruction technique. COMPARISON: 10/20/2024 FINDINGS: Limitations: None. Brain and extra-axial spaces: There is age appropriate cortical atrophy and chronic ischemic periventricular white matter hypodensity. No acute infarct, hemorrhage or mass noted. Bones/joints: No acute changes. Soft tissues: No significant abnormality noted. Vasculature: Intracranial carotid and left vertebral atherosclerotic calcification noted. Sinuses: No layering fluid in the visualized portions of the paranasal sinuses. Mastoid air cells: No mastoid effusion. Orbits: No significant abnormality noted. IMPRESSION: Cerebral atrophy. No acute changes. ACT 112: Negative or not required by law. Electronically signed by Marilee Lyon 11-21-2024 2:57 PM Hip/Pelvis X-Ray 11/21/24 13:50 EXAM: Radiographs of the Right Hip 3 Views INDICATION: Trauma. TECHNIQUE: Front view pelvis and AP and frog leg lateral views of the right hip. COMPARISON: No relevant prior studies available. FINDINGS: Limitations: None. Bones/joints: There is an acute minimally comminuted intertrochanteric fracture of the right femur without significant angulation. No dislocation. Visualized portion of left proximal femoral nail and locking bolt well-seated and intact. Soft tissues: No abnormality noted. No radiopaque foreign body noted. Gastrointestinal tract: Moderate amounts of stool noted in the visualized colonic segments. IMPRESSION: Acute intertrochanteric fracture of the right femur. ACT 112: Negative or not required by law. Electronically signed by Marilee Lyon 11-21-2024 2:30 PM Hip X-Ray 11/22/24 07:00 FL hip RT 2-3V CLINICAL HISTORY: RIGHT TROCHNAIL COMPARISON STUDY: Right hip radiographs of same day FLUOROSCOPY TIME: 73.6 seconds FLUOROSCOPY IMAGES: 5 EXPOSURE DOSE: 11.04 mGy FINDINGS: Intertrochanteric nail with medullary ozzy fixates the acute proximal femoral fracture. There is near-anatomic alignment. A surgical sponge projects over the right femoral neck on the first image and is seen anterior to the proximal femoral diaphysis on the frog-leg views. Note that the images were submitted following completion of the surgery. IMPRESSION: Fluoroscopic assistance as above. ACT 112: Negative or not required by law. Electronically signed by: Martin Newton M.D. 11/23/2024 7:02 AM Hip X-Ray 11/22/24 16:18 INDICATION: Postoperative evaluation. TECHNIQUE: 3 views of the right hip. COMPARISON: Radiograph from the prior day. FINDINGS/IMPRESSION: Right hip hardware appears intact transfixing right hip fracture. No new fracture or dislocation. Postoperative changes in the soft tissues. Electronically signed by Callum Kline 11-22-2024 5:03 PM Pending Results Patient Have Any Pending Studies at Discharge: No Discharge Instructions Given to Patient (Per Discharging Provider) Mr Griffin, Albert were seen and treated for right hip fracture. Continue with Lovenox daily to help prevent blood clots. Your hemoglobin will need to be monitored closely after discharge. Please keep close follow up with your primary care provider after discharge. Please keep close follow up with orthopedics after discharge. They left additional instructions for you below. Please do not hesitate to come back to the emergency room if your symptoms worsen or return. It was a pleasure taking care of you while you were here. Total Time Total Time Spent Total Time Spent (In Minutes): 60
--- NOTE | 2024-11-25 05:56 | Electrocardiogram Report ---
Test Reason : Blood Pressure : */* mmHG Vent. Rate : 72 BPM Atrial Rate : 72 BPM P-R Int : 152 ms QRS Dur : 76 ms QT Int : 410 ms P-R-T Axes : 84 -78 79 degrees QTcB Int : 448 ms Sinus rhythm with occasional Premature ventricular complexes Left anterior fascicular block Nonspecific ST abnormality Abnormal ECG When compared with ECG of 20-Oct-2024 16:52, Premature ventricular complexes are now Present Confirmed by Christian Stevenson ([id number]) on 11/25/2024 5:55:39 AM Referred By: REFERRED SELF Confirmed By: Christian Stevenson
== END 2024-11-24 15:42 | DRG 481 ==
LOC: ED 13:10 → SUATTDRO 15:59 → 3E 15:59

== ENCOUNTER 2025-01-11 11:36 | Inpatient (IN) ==
[2025-01-11] MEDS: NOREPINEPHRINE/D5W 4 MG/250 ML PLCT IV SCH (11:49)
[2025-01-11] MEDS: SODIUM CHLORIDE 0.9% 1,000 ML IV SCH (11:49)
[2025-01-11] MEDS ORDERED: STAT IV Infusion **Titration per Protocol STA (11:49)
--- NOTE | 2025-01-11 11:50 | Emergency Department Note ---
Impression & Plan Hypoxia Admission ED Provider Note HPI: History obtained from EMS personnel. The patient is a 74-year-old gentleman who presents the emergency department with respiratory distress. Patient presents via EMS from his nursing facility, they state the patient had an episode of vomiting earlier today and they were concerned that he might of possibly had an aspiration event as he continued to decline from a respiratory standpoint at his [facility] over the next several hours. Upon EMS arrival they state the patient was saturating at 80% on oxygen mask at 10 L. Patient was switched to a nonrebreather mask at 15 L with improvement up to 90% on arrival. Patient's hypotension also improved during transit, EMS personnel stated the patient had a blood pressure in the 60s systolic and that improved to 134/90 prior to arrival. On arrival here to the ED the patient does display some increased work of breathing but he is alert, he is able to answer my questions appropriately, he denies any focal complaint of pain. ROS: - Per HPI Differential Diagnosis: Sepsis, acute hypoxic respiratory failure secondary to aspiration pneumonia, viral upper respiratory infection, ACS, PE, pleural effusion, CHF exacerbation, COPD exacerbation, amongst other potential pathologies. *Outpatient medications and allergy history reviewed. PE: General: Alert, frail-appearing HEENT: Normocephalic, trachea midline Eyes: Extraocular eye movement is intact, no scleral erythema Pulmonary: Tachypnea with coarse bilateral breath sounds Cardio: Tachycardic rate with regular rhythm GI: Abdomen is soft to palpation : No suprapubic tenderness MSK: No evidence of trauma or malformation of the extremities, no edema Skin: No evidence of rash Neuro: Alert, no focal deficits Psychiatric: Cooperative INDEPENDENT INTERPRETATIONS: patient monitor: (As interpreted by myself): - An order was placed for continuous cardiac monitoring - Patient was noted to be in sinus rhythm with a rate of 115 EKG: (As interpreted by myself): Rate: 125 Rhythm: Sinus tachycardia Intervals: Within normal limits ST changes: No ST elevation Time: 1141 Chest x-ray: (As interpreted by myself): Patchy by bilateral basilar opacities Interventions provided in ED: -IV fluid bolus, IV vancomycin, IV Unasyn, IV Levophed Medical Decision Making: Shortly after the patient arrived, he was initiated on IV fluid bolus as well as peripheral vasopressor support for hypotension in the 50s. Patient was otherwise alert here in the ED and able to answer my questions but did appear to be in some mild respiratory distress. Blood pressure did gradually improved, lab work was obtained that shows no leukocytosis, hemoglobin was normal, platelet count is normal, venous blood gas shows a pH of 7.17 with a normal pCO2. CMP shows a mild acute kidney injury with creatinine elevation to 2.02, lactic acid is markedly elevated at 8.5, BNP is mildly elevated at 110, procalcitonin is elevated at 10.7. Troponin was noted to be normal. EKG shows sinus rhythm without any acute ischemic changes. Chest x-ray shows possible bibasilar pneumonia/patchy infiltrates. Patient was initiated on IV antibiotics, I did have a prolonged discussion with the patient as well as his son, Miguel, over the phone. Patient request to be DNR/DNI CODE STATUS and this was confirmed by his son over the phone. I did also discuss initiation of central line placement for continued vasopressor support as the patient failed weaning trial here in the ED. Patient was adamant that he did not want any invasive procedures such as central line or even [place] catheter to be performed at this point. Patient is okay for other interventions to be performed peripherally through IV such as antibiotics and vasopressors. Prior to admission on my reevaluation at approximately 1300, the patient remains alert, he appears well-perfused with good capillary refill less than 3 seconds in the digits of the bilateral upper extremities, skin is not mottled. I discussed the above findings with the on-call hospitalist team for [facility], Dr. Tovar, and she was in agreement to evaluate the patient for admission. He was aware of the patient's critical condition and his limited interventions CODE STATUS. Patient was admitted to the hospitalist service in guarded condition for further care. Consultants/Discussions held with other healthcare providers: -Hospitalist, Dr. Tovar Disposition discussion held by myself with: -Patient and patient's son (Miguel) over the phone * CRITICAL CARE TIME: ( 65 ) minutes -Management of patient with acute hypotension and hypoxia (80% despite supplemental oxygen in the field) as well as tachycardia concerning for sepsis secondary to pneumonia. Aggressive IV fluid resuscitation and initiation of peripheral vasopressor support for hypotension. Interpretation of diagnostic studies, time spent at the bedside and discussion with the patient and patient's family in regards to CODE STATUS and critical condition. Discussion with other physicians and arrangement of admission. Diagnosis: 1. Acute respiratory failure with hypoxia 2. Bilateral pneumonia, acute 3. Sepsis 4. Elevated procalcitonin 5. Lactic acidosis, acute Disposition: Admission Jose Ruby DO Emergency Medicine Past Med/Surg History Problem List (Updated 01/11/25 @ 16:25 by Jose Ruby DO) Hypoxia (Acute) Septic shock Aspiration pneumonitis Severe sepsis Lactic acidosis Anemia (Acute) Anticoagulated (Acute) Fall (Acute) Fracture of right hip (Acute) Intertrochanteric fracture of right femur Chronic ulcer of right foot with fat layer exposed Hypomagnesemia Intertrochanteric fracture of left hip Chronic venous stasis dermatitis Diabetes mellitus type 2, controlled Closed fracture of greater trochanter of left femur (Acute) Fall from standing (Acute) Rhabdomyolysis (Acute) Dermatitis of lower extremity GERD (gastroesophageal reflux disease) Alcohol intoxication Closed T12 fracture Fall (Acute) Hypoxia (Acute) Pneumonia Hypomagnesemia (Acute) Leukocytosis (Acute) Elevated lactic acid level (Acute) CARLO (acute kidney injury) (Acute) Acute hypotension (Acute) Hypoxia (Acute) Metabolic encephalopathy Exposure to body fluid Cellulitis (Acute) Fecal soiling due to fecal incontinence Acute dehydration (Acute) Acute hypotension (Acute) Acute UTI (Acute) Encounter for pre-operative examination Right nephrolithiasis Weakness Low blood pressure DM2 (diabetes mellitus, type 2) GERD (gastroesophageal reflux disease) Esophageal candidiasis Urinary retention Phimosis Hydronephrosis, right Medical History Hypomagnesemia 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 Diabetes mellitus, type 2 Cataract upcoming surgery for correction Low blood pressure On Midodrine Chronic obstructive pulmonary disease Surgical History History of esophagogastroduodenoscopy (EGD) History of colonoscopy History of tooth extraction Family History Other No family history of adverse response to anesthesia Social History Smoking Status: Unknown if ever smoked Tobacco Type: Cigarettes Cigarettes Per Day: 20; Second Hand Exposure: No; Do You Dip or Chew Tobacco: No; Hx Alcohol Use: No Hx Substance Use: No Preferred Language: Syriac Communication Ability: Effective Student Assistance Counselor Required: No Beliefs That Will Affect Care: None Current Living Situation: Jail Current Living Situation Comment: son lives down the road Feels Safe at Home: Yes Assistive Devices: Walker Allergies Allergies Allergy/AdvReac Type Severity Reaction Status Date / Time No Known Allergies Allergy Verified 02/28/24 17:00 Home Meds Home Medications Medication Instructions Recorded Confirmed cholecalciferol (vitamin D3) 125 125 mcg PO HS 06/18/23 11/21/24 mcg (5,000 unit) tablet (Vitamin D3) metformin 1,000 mg tablet 1,000 mg PO .DAILY AFTER SUPPER 06/18/23 11/21/24 insulin aspart U-100 100 unit/mL 1 sliding scale dose subcut AC 02/21/24 11/21/24 (3 mL) subcutaneous pen (Novolog FlexPen U-100 Insulin aspart) insulin glargine 100 unit/mL (3 6 unit subcut QAM 02/21/24 11/21/24 mL) subcutaneous pen (Lantus Solostar U-100 Insulin) pantoprazole 20 mg tablet,delayed 20 mg PO DAILYBB 02/21/24 11/21/24 release clobetasol 0.05 % topical cream 1 applic topical UD 10/20/24 11/21/24 clotrimazole-betamethasone 1 1 applic topical BID 10/20/24 11/21/24 %-0.05 % topical cream gabapentin 300 mg capsule 300 mg PO TID 10/20/24 11/21/24 Previous Rx's Medication Instructions Recorded midodrine 5 mg tablet 5 mg PO TID #90 tabs 03/06/24 tramadol 50 mg tablet 50 mg PO Q6 PRN pain #30 tabs 10/24/24 Results & Data (ED) Vital Signs Vital Signs - 24 hr 01/11/25 11:25 01/11/25 11:25 01/11/25 11:25 Temperature 36.6 C Temperature Source Oral Pulse Rate 125 H Pulse Rate from SpO2 Sensor Respiratory Rate 22 Respiratory Effort / Characteristics Non-Labored Spontaneous Non-Labored Spontaneous Respiratory Depth Normal Normal Respiratory Pattern Regular Regular Blood Pressure 52/40 L Blood Pressure Mean 44 Blood Pressure Position Lying Pulse Oximetry 91 91 Oxygen Delivery Method Non-rebreather Non-rebreather Non-rebreather Oxygen Flow Rate 15 15 15 Sepsis Recent Fever Within 48 Hours No Sepsis New/Unexplained Change in Mental Status N/A Sepsis Action Taken by Nursing Previously Notified 01/11/25 11:48 01/11/25 11:52 01/11/25 11:55 Temperature Temperature Source Pulse Rate Pulse Rate from SpO2 Sensor Respiratory Rate Respiratory Effort / Characteristics Respiratory Depth Respiratory Pattern Blood Pressure 59/48 L 73/55 L Blood Pressure Mean 52 64 Blood Pressure Position Pulse Oximetry 95 Oxygen Delivery Method Non-rebreather Oxygen Flow Rate 15 Sepsis Recent Fever Within 48 Hours Sepsis New/Unexplained Change in Mental Status Sepsis Action Taken by Nursing 01/11/25 11:55 01/11/25 11:55 01/11/25 11:57 Temperature Temperature Source Pulse Rate 116 H Pulse Rate from SpO2 Sensor 115 H Respiratory Rate 26 H Respiratory Effort / Characteristics Respiratory Depth Respiratory Pattern Blood Pressure 73/55 L 73/55 L Blood Pressure Mean 64 64 Blood Pressure Position Pulse Oximetry 95 Oxygen Delivery Method Non-rebreather Oxygen Flow Rate 15 Sepsis Recent Fever Within 48 Hours Sepsis New/Unexplained Change in Mental Status Sepsis Action Taken by Nursing 01/11/25 11:59 01/11/25 11:59 01/11/25 12:00 Temperature Temperature Source Pulse Rate 116 H Pulse Rate from SpO2 Sensor 116 H Respiratory Rate 26 H Respiratory Effort / Characteristics Respiratory Depth Respiratory Pattern Blood Pressure 114/76 114/76 114/76 Blood Pressure Mean 87 87 88 Blood Pressure Position Pulse Oximetry 91 Oxygen Delivery Method Non-rebreather Oxygen Flow Rate 15 Sepsis Recent Fever Within 48 Hours Sepsis New/Unexplained Change in Mental Status Sepsis Action Taken by Nursing 01/11/25 12:05 01/11/25 12:05 01/11/25 12:06 Temperature Temperature Source Pulse Rate 121 H 109 H Pulse Rate from SpO2 Sensor 112 H Respiratory Rate 24 Respiratory Effort / Characteristics Respiratory Depth Respiratory Pattern Blood Pressure 97/77 L Blood Pressure Mean 85 Blood Pressure Position Pulse Oximetry 92 Oxygen Delivery Method Non-rebreather Oxygen Flow Rate 15 Sepsis Recent Fever Within 48 Hours Sepsis New/Unexplained Change in Mental Status Sepsis Action Taken by Nursing 01/11/25 12:10 01/11/25 12:15 01/11/25 12:20 Temperature Temperature Source Pulse Rate 117 H Pulse Rate from SpO2 Sensor 84 Respiratory Rate 28 H Respiratory Effort / Characteristics Respiratory Depth Respiratory Pattern Blood Pressure 99/73 L 96/67 L Blood Pressure Mean 82 82 Blood Pressure Position Pulse Oximetry 92 Oxygen Delivery Method Non-rebreather Oxygen Flow Rate 15 Sepsis Recent Fever Within 48 Hours Sepsis New/Unexplained Change in Mental Status Sepsis Action Taken by Nursing 01/11/25 12:20 01/11/25 12:25 01/11/25 12:25 Temperature Temperature Source Pulse Rate Pulse Rate from SpO2 Sensor Respiratory Rate Respiratory Effort / Characteristics Respiratory Depth Respiratory Pattern Blood Pressure 96/67 L 109/82 109/82 Blood Pressure Mean 82 99 99 Blood Pressure Position Pulse Oximetry Oxygen Delivery Method Oxygen Flow Rate Sepsis Recent Fever Within 48 Hours Sepsis New/Unexplained Change in Mental Status Sepsis Action Taken by Nursing 01/11/25 12:31 01/11/25 12:33 01/11/25 12:35 Temperature Temperature Source Pulse Rate 111 H Pulse Rate from SpO2 Sensor 111 H Respiratory Rate 25 H Respiratory Effort / Characteristics Respiratory Depth Respiratory Pattern Blood Pressure 101/63 94/61 L Blood Pressure Mean 85 63 Blood Pressure Position Pulse Oximetry 91 Oxygen Delivery Method Non-rebreather Oxygen Flow Rate 15 Sepsis Recent Fever Within 48 Hours Sepsis New/Unexplained Change in Mental Status Sepsis Action Taken by Nursing 01/11/25 12:36 01/11/25 12:45 01/11/25 12:51 Temperature Temperature Source Pulse Rate 112 H Pulse Rate from SpO2 Sensor 102 H Respiratory Rate 26 H Respiratory Effort / Characteristics Respiratory Depth Respiratory Pattern Blood Pressure 105/73 100/50 L Blood Pressure Mean 92 84 Blood Pressure Position Pulse Oximetry 92 Oxygen Delivery Method Non-rebreather Oxygen Flow Rate 15 Sepsis Recent Fever Within 48 Hours Sepsis New/Unexplained Change in Mental Status Sepsis Action Taken by Nursing 01/11/25 12:51 01/11/25 12:51 01/11/25 12:54 Temperature Temperature Source Pulse Rate 112 H 124 H Pulse Rate from SpO2 Sensor 114 H 97 H Respiratory Rate 24 26 H Respiratory Effort / Characteristics Respiratory Depth Respiratory Pattern Blood Pressure 100/50 L Blood Pressure Mean 84 Blood Pressure Position Pulse Oximetry 94 94 Oxygen Delivery Method Non-rebreather Non-rebreather Oxygen Flow Rate 15 15 Sepsis Recent Fever Within 48 Hours Sepsis New/Unexplained Change in Mental Status Sepsis Action Taken by Nursing 01/11/25 12:55 01/11/25 12:55 01/11/25 12:55 Temperature Temperature Source Pulse Rate Pulse Rate from SpO2 Sensor Respiratory Rate Respiratory Effort / Characteristics Respiratory Depth Respiratory Pattern Blood Pressure 108/70 108/70 108/70 Blood Pressure Mean 86 86 86 Blood Pressure Position Pulse Oximetry Oxygen Delivery Method Oxygen Flow Rate Sepsis Recent Fever Within 48 Hours Sepsis New/Unexplained Change in Mental Status Sepsis Action Taken by Nursing 01/11/25 13:00 01/11/25 13:01 01/11/25 13:01 Temperature Temperature Source Pulse Rate 120 H Pulse Rate from SpO2 Sensor 98 H Respiratory Rate 22 Respiratory Effort / Characteristics Respiratory Depth Respiratory Pattern Blood Pressure 93/66 L 93/66 L Blood Pressure Mean 70 70 Blood Pressure Position Pulse Oximetry 94 Oxygen Delivery Method Non-rebreather Oxygen Flow Rate 15 Sepsis Recent Fever Within 48 Hours Sepsis New/Unexplained Change in Mental Status Sepsis Action Taken by Nursing 01/11/25 13:01 01/11/25 13:03 01/11/25 13:05 Temperature Temperature Source Pulse Rate 147 H Pulse Rate from SpO2 Sensor 108 H Respiratory Rate 24 Respiratory Effort / Characteristics Respiratory Depth Respiratory Pattern Blood Pressure 93/66 L 94/68 L Blood Pressure Mean 70 82 Blood Pressure Position Pulse Oximetry 95 Oxygen Delivery Method Non-rebreather Oxygen Flow Rate 15 Sepsis Recent Fever Within 48 Hours Sepsis New/Unexplained Change in Mental Status Sepsis Action Taken by Nursing 01/11/25 13:10 01/11/25 13:10 01/11/25 13:15 Temperature Temperature Source Pulse Rate Pulse Rate from SpO2 Sensor Respiratory Rate Respiratory Effort / Characteristics Respiratory Depth Respiratory Pattern Blood Pressure 91/68 L 91/68 L 74/53 L Blood Pressure Mean 77 77 57 Blood Pressure Position Pulse Oximetry Oxygen Delivery Method Oxygen Flow Rate Sepsis Recent Fever Within 48 Hours Sepsis New/Unexplained Change in Mental Status Sepsis Action Taken by Nursing 01/11/25 13:15 01/11/25 13:19 01/11/25 13:20 Temperature Temperature Source Pulse Rate 117 H Pulse Rate from SpO2 Sensor 116 H Respiratory Rate 23 Respiratory Effort / Characteristics Respiratory Depth Respiratory Pattern Blood Pressure 75/48 L 91/65 L Blood Pressure Mean 54 70 Blood Pressure Position Pulse Oximetry 93 Oxygen Delivery Method Non-rebreather Oxygen Flow Rate 15 Sepsis Recent Fever Within 48 Hours Sepsis New/Unexplained Change in Mental Status Sepsis Action Taken by Nursing 01/11/25 13:20 01/11/25 13:21 01/11/25 13:24 Temperature Temperature Source Pulse Rate 116 H 115 H Pulse Rate from SpO2 Sensor 116 H 116 H Respiratory Rate 27 H 29 H Respiratory Effort / Characteristics Respiratory Depth Respiratory Pattern Blood Pressure 91/65 L Blood Pressure Mean 70 Blood Pressure Position Pulse Oximetry 94 94 Oxygen Delivery Method Non-rebreather Non-rebreather Oxygen Flow Rate 15 15 Sepsis Recent Fever Within 48 Hours Sepsis New/Unexplained Change in Mental Status Sepsis Action Taken by Nursing 01/11/25 13:25 01/11/25 13:35 01/11/25 13:36 Temperature Temperature Source Pulse Rate 112 H Pulse Rate from SpO2 Sensor 112 H Respiratory Rate 24 Respiratory Effort / Characteristics Respiratory Depth Respiratory Pattern Blood Pressure 82/65 L 92/64 L Blood Pressure Mean 75 69 Blood Pressure Position Pulse Oximetry 93 Oxygen Delivery Method Non-rebreather Oxygen Flow Rate 15 Sepsis Recent Fever Within 48 Hours Sepsis New/Unexplained Change in Mental Status Sepsis Action Taken by Nursing 01/11/25 13:39 01/11/25 13:40 01/11/25 13:50 Temperature Temperature Source Pulse Rate 113 H Pulse Rate from SpO2 Sensor 113 H Respiratory Rate 21 Respiratory Effort / Characteristics Respiratory Depth Respiratory Pattern Blood Pressure 86/58 L 90/66 L Blood Pressure Mean 74 74 Blood Pressure Position Pulse Oximetry 93 Oxygen Delivery Method Non-rebreather Oxygen Flow Rate 15 Sepsis Recent Fever Within 48 Hours Sepsis New/Unexplained Change in Mental Status Sepsis Action Taken by Nursing 01/11/25 13:54 01/11/25 13:55 01/11/25 14:02 Temperature Temperature Source Pulse Rate 112 H Pulse Rate from SpO2 Sensor 112 H Respiratory Rate 22 Respiratory Effort / Characteristics Respiratory Depth Respiratory Pattern Blood Pressure 99/71 L 93/66 L Blood Pressure Mean 77 72 Blood Pressure Position Pulse Oximetry 92 Oxygen Delivery Method Non-rebreather Oxygen Flow Rate 15 Sepsis Recent Fever Within 48 Hours Sepsis New/Unexplained Change in Mental Status Sepsis Action Taken by Nursing 01/11/25 14:05 01/11/25 14:06 01/11/25 14:11 Temperature Temperature Source Pulse Rate 96 H Pulse Rate from SpO2 Sensor 85 Respiratory Rate 18 Respiratory Effort / Characteristics Respiratory Depth Respiratory Pattern Blood Pressure 85/50 L 91/67 L Blood Pressure Mean 66 78 Blood Pressure Position Pulse Oximetry 94 Oxygen Delivery Method Non-rebreather Oxygen Flow Rate 15 Sepsis Recent Fever Within 48 Hours Sepsis New/Unexplained Change in Mental Status Sepsis Action Taken by Nursing 01/11/25 14:15 01/11/25 14:18 01/11/25 14:21 Temperature Temperature Source Pulse Rate 110 H Pulse Rate from SpO2 Sensor 111 H Respiratory Rate 24 Respiratory Effort / Characteristics Respiratory Depth Respiratory Pattern Blood Pressure 96/66 L 91/66 L Blood Pressure Mean 74 75 Blood Pressure Position Pulse Oximetry 94 Oxygen Delivery Method Non-rebreather Oxygen Flow Rate 15 Sepsis Recent Fever Within 48 Hours Sepsis New/Unexplained Change in Mental Status Sepsis Action Taken by Nursing 01/11/25 14:25 01/11/25 14:25 01/11/25 14:27 Temperature Temperature Source Pulse Rate 112 H Pulse Rate from SpO2 Sensor 61 Respiratory Rate 29 H Respiratory Effort / Characteristics Respiratory Depth Respiratory Pattern Blood Pressure 108/64 108/64 Blood Pressure Mean 85 85 Blood Pressure Position Pulse Oximetry 93 Oxygen Delivery Method Non-rebreather Oxygen Flow Rate 15 Sepsis Recent Fever Within 48 Hours Sepsis New/Unexplained Change in Mental Status Sepsis Action Taken by Nursing 01/11/25 14:36 01/11/25 14:42 01/11/25 14:46 Temperature Temperature Source Pulse Rate 114 H 116 H Pulse Rate from SpO2 Sensor 114 H 117 H Respiratory Rate 22 51 H Respiratory Effort / Characteristics Respiratory Depth Respiratory Pattern Blood Pressure 86/57 L Blood Pressure Mean 62 Blood Pressure Position Pulse Oximetry 91 89 L Oxygen Delivery Method Oxygen Flow Rate Sepsis Recent Fever Within 48 Hours Sepsis New/Unexplained Change in Mental Status Sepsis Action Taken by Nursing 01/11/25 15:00 01/11/25 15:03 01/11/25 15:05 Temperature Temperature Source Pulse Rate 113 H Pulse Rate from SpO2 Sensor 113 H Respiratory Rate 24 Respiratory Effort / Characteristics Respiratory Depth Respiratory Pattern Blood Pressure 70/54 L 73/48 L Blood Pressure Mean 59 56 Blood Pressure Position Pulse Oximetry 96 Oxygen Delivery Method Oxygen Flow Rate Sepsis Recent Fever Within 48 Hours Sepsis New/Unexplained Change in Mental Status Sepsis Action Taken by Nursing 01/11/25 15:06 01/11/25 15:07 Temperature Temperature Source Pulse Rate 111 H Pulse Rate from SpO2 Sensor 111 H Respiratory Rate 22 Respiratory Effort / Characteristics Respiratory Depth Respiratory Pattern Blood Pressure 85/61 L Blood Pressure Mean 63 Blood Pressure Position Pulse Oximetry 97 Oxygen Delivery Method Oxygen Flow Rate Sepsis Recent Fever Within 48 Hours Sepsis New/Unexplained Change in Mental Status Sepsis Action Taken by Nursing Laboratory Data 01/11/25 11:50 01/11/25 11:50 Lab Results 01/11/25 01/11/25 01/11/25 Range/Units 11:50 12:03 14:48 WBC 10.15 (4.8-10.8) K/ul RBC 4.81 (4.70-6.10) M/uL Hgb 14.7 (14.0-18.0) g/dl POC Hgb 15.0 (14.0-18.0) g/dl Hct 44.0 (42.0-52.0) % POC Hct 44 (42-52) % MCV 91.5 (80.0-100.0) fL MCH 30.6 (25.0-34.0) pg MCHC 33.4 (32.0-36.0) g/dL RDW Std Deviation 47.1 H (36.4-46.3) fL RDW Coeff of Cassia 14.0 (11.5-14.5) % Plt Count 326 (130-400) K/uL MPV 9.2 L (9.4-12.4) fL Immature Gran % (Auto) 0.4 % Neut % (Auto) 84.1 % Lymph % (Auto) 10.6 % [place] % (Auto) 4.3 % Eos % (Auto) 0.1 % Baso % (Auto) 0.5 % Neut # (Auto) 8.53 H (1.40-6.50) K/uL Lymph # (Auto) 1.08 L (1.20-3.40) K/uL [place] # (Auto) 0.44 (0.11-0.59) K/uL Eos # (Auto) 0.01 (0.00-0.50) K/uL Baso # (Auto) 0.05 (0.00-0.20) K/uL Immature Gran # (Auto) 0.04 (0.01-0.20) K/uL PT 11.8 (9.0-12.0) Seconds INR 1.1 (0.9-1.1) VBG pH 7.17 L 7.09 L (7.36-7.41) VBG pCO2 48 48 (38-50) mmHg VBG pO2 37 35 mmHg VBG HCO3 18 15 mmol/L VBG O2 Saturation < 60.0 < 60.0 % VBG Base Excess -11.1 -15.1 mEq/L POC Sodium 142 (135-144) mmol/L Sodium 141 (136-145) mmol/L POC Potassium 3.8 (3.3-5.0) mmol/L Potassium 3.9 (3.5-5.1) mmol/L POC Chloride 106 (101-112) mmol/L Chloride 106 (98-107) mmol/L Carbon Dioxide 20 L (21-32) mmol/L POC Total CO2 18 L (24-31) mmol/L Anion Gap 15 H (3-11) POC Anion Gap 22.0 (16-25) mmol/L POC BUN 44 H (7-18) mg/dl BUN 49 H (6-23) mg/dl Creatinine 2.02 H (0.6-1.4) mg/dl POC Creatinine 2.2 H (0.6-1.3) mg/dl Est Cr Clr Drug Dosing 25.9 ml/min eGFR 33.76 BUN/Creatinine Ratio 24.3 H (10-20) Glucose 155 H (70-99(Fasting)) mg/dl POC Glucose (other) 153 H (70-99) mg/dl Lactate 8.5 H* 9.4 H* (0.4-2.0) mmol/L Calcium 8.9 (8.6-10.3) mg/dl POC Ioniz Calcium Paulino 1.14 (1.12-1.32) mmol/l Total Bilirubin 0.7 (0.2-1.0) mg/dl AST 30 (13-39) U/L ALT 21 (7-52) U/L Alkaline Phosphatase 280 H (34-104) U/L Troponin I High Sens 17.8 (0-20) pg/ml B-Natriuretic Peptide 110 H (0-100) pg/ml Total Protein 7.1 (6.0-8.3) gm/dl Albumin 3.3 L (3.4-5.0) gm/dl Globulin 3.8 (2.5-4.0) gm/dl Albumin/Globulin Ratio 0.9 (0.9-2) Procalcitonin 10.70 H (0-0.5) ng/ml Adenovirus (PCR) (NotDetected) B. pertussis DNA (PCR) (NotDetected) B.parapertussis DNA PCR (NotDetected) C. pneumoniae DNA (PCR) (NotDetected) Coronavirus OC43 (PCR) (NotDetected) Coronavirus HKU1 (PCR) (NotDetected) Coronavirus 229E (PCR) (NotDetected) SARS-CoV-2 (PCR) (NotDetected) Coronavirus NL63 (PCR) (NotDetected) Human Metapneumovir PCR (NotDetected) Influenza Type A (PCR) (NotDetected) Influenza Type B (PCR) (NotDetected) M. pneumoniae (PCR) (NotDetected) Parainfluenza 1 (PCR) (NotDetected) Parainfluenza 2 (PCR) (NotDetected) Parainfluenza 3 (PCR) (NotDetected) Parainfluenza 4 (PCR) (NotDetected) RSV (PCR) (NotDetected) Entero/Rhino (PCR) (NotDetected) 01/11/25 Range/Units Unknown WBC (4.8-10.8) K/ul RBC (4.70-6.10) M/uL Hgb (14.0-18.0) g/dl POC Hgb (14.0-18.0) g/dl Hct (42.0-52.0) % POC Hct (42-52) % MCV (80.0-100.0) fL MCH (25.0-34.0) pg MCHC (32.0-36.0) g/dL RDW Std Deviation (36.4-46.3) fL RDW Coeff of Cassia (11.5-14.5) % Plt Count (130-400) K/uL MPV (9.4-12.4) fL Immature Gran % (Auto) % Neut % (Auto) % Lymph % (Auto) % [place] % (Auto) % Eos % (Auto) % Baso % (Auto) % Neut # (Auto) (1.40-6.50) K/uL Lymph # (Auto) (1.20-3.40) K/uL [place] # (Auto) (0.11-0.59) K/uL Eos # (Auto) (0.00-0.50) K/uL Baso # (Auto) (0.00-0.20) K/uL Immature Gran # (Auto) (0.01-0.20) K/uL PT (9.0-12.0) Seconds INR (0.9-1.1) VBG pH (7.36-7.41) VBG pCO2 (38-50) mmHg VBG pO2 mmHg VBG HCO3 mmol/L VBG O2 Saturation % VBG Base Excess mEq/L POC Sodium (135-144) mmol/L Sodium (136-145) mmol/L POC Potassium (3.3-5.0) mmol/L Potassium (3.5-5.1) mmol/L POC Chloride (101-112) mmol/L Chloride (98-107) mmol/L Carbon Dioxide (21-32) mmol/L POC Total CO2 (24-31) mmol/L Anion Gap (3-11) POC Anion Gap (16-25) mmol/L POC BUN (7-18) mg/dl BUN (6-23) mg/dl Creatinine (0.6-1.4) mg/dl POC Creatinine (0.6-1.3) mg/dl Est Cr Clr Drug Dosing ml/min eGFR BUN/Creatinine Ratio (10-20) Glucose (70-99(Fasting)) mg/dl POC Glucose (other) (70-99) mg/dl Lactate (0.4-2.0) mmol/L Calcium (8.6-10.3) mg/dl POC Ioniz Calcium Paulino (1.12-1.32) mmol/l Total Bilirubin (0.2-1.0) mg/dl AST (13-39) U/L ALT (7-52) U/L Alkaline Phosphatase (34-104) U/L Troponin I High Sens (0-20) pg/ml B-Natriuretic Peptide (0-100) pg/ml Total Protein (6.0-8.3) gm/dl Albumin (3.4-5.0) gm/dl Globulin (2.5-4.0) gm/dl Albumin/Globulin Ratio (0.9-2) Procalcitonin (0-0.5) ng/ml Adenovirus (PCR) Not Detected (NotDetected) B. pertussis DNA (PCR) Not Detected (NotDetected) B.parapertussis DNA PCR Not Detected (NotDetected) C. pneumoniae DNA (PCR) Not Detected (NotDetected) Coronavirus OC43 (PCR) Not Detected (NotDetected) Coronavirus HKU1 (PCR) Not Detected (NotDetected) Coronavirus 229E (PCR) Not Detected (NotDetected) SARS-CoV-2 (PCR) Not Detected (NotDetected) Coronavirus NL63 (PCR) Not Detected (NotDetected) Human Metapneumovir PCR Not Detected (NotDetected) Influenza Type A (PCR) Not Detected (NotDetected) Influenza Type B (PCR) Not Detected (NotDetected) M. pneumoniae (PCR) Not Detected (NotDetected) Parainfluenza 1 (PCR) Not Detected (NotDetected) Parainfluenza 2 (PCR) Not Detected (NotDetected) Parainfluenza 3 (PCR) Not Detected (NotDetected) Parainfluenza 4 (PCR) Not Detected (NotDetected) RSV (PCR) Not Detected (NotDetected) Entero/Rhino (PCR) Not Detected (NotDetected) Administered Medications Norepinephrine Bitartrate (Levophed/D5w) 4 mg in 250 mls @ 15.225 mls/hr IV .[id number] [facility]; Protocol Stop: 02/10/25 11:59 Last Titration: 01/11/25 15:02 Dose: 0.07 mcg/kg/min, 15.2 mls/hr Documented By: ROGER Co-signed By: NDW Titration: 01/11/25 14:50 Dose: 0 mcg/kg/min, 0 mls/hr Documented By: ROGER Co-signed By: NDW Titration: 01/11/25 13:20 Dose: 0.07 mcg/kg/min, 15.2 mls/hr Documented By: ROGER Co-signed By: LINDA Titration: 01/11/25 13:14 Dose: 0 mcg/kg/min, 0 mls/hr Documented By: ROGER Co-signed By: LINDA Titration: 01/11/25 11:55 Dose: 0.07 mcg/kg/min, 15.2 mls/hr Documented By: ROGER Co-signed By: MARY Admin: 01/11/25 11:49 Dose: 0.05 mcg/kg/min, 10.9 mls/hr Documented By: ROGER Co-signed By: MARY Sodium Chloride (Nss) 1,000 mls @ 100 mls/hr IV .Q10H ONE Stop: 01/11/25 22:39 Last Admin: 01/11/25 13:10 Dose: 100 mls/hr Documented By: ROGER Discontinued Medications Albuterol (Albut/Ipratrop 3mg/0.5mg Neb 3 Ml Vial) 3 ml NEB NOW STA; Protocol Stop: 01/11/25 11:43 Last Admin: 01/11/25 12:33 Dose: 3 ml Documented By: ROGER Sodium Chloride (Nss) 1,000 mls @ 999 mls/hr IV .Q1H1M ISABELL Stop: 01/11/25 14:00 Last Infusion: 01/11/25 13:27 Dose: 0 mls/hr Documented By: Admin: 01/11/25 12:56 Dose: 999 mls/hr Documented By: Infusion: 01/11/25 12:47 Dose: Infused Documented By: Admin: 01/11/25 11:49 Dose: 999 mls/hr Documented By: ROGER Ampicillin Sodium/Sulbactam Sodium (Unasyn) 3,000 mg in 100 mls @ 200 mls/hr IV NOW STA Stop: 01/11/25 12:36 Last Infusion: 01/11/25 13:28 Dose: Infused Documented By: Admin: 01/11/25 12:41 Dose: 200 mls/hr Documented By: ROGER Vancomycin HCl 1,250 mg/ (Sodium Chloride) 525 mls @ 200 mls/hr IV NOW ONE Stop: 01/11/25 15:10 Last Admin: 01/11/25 13:10 Dose: 200 mls/hr Documented By: ROGER Midodrine (Midodrine Hcl 10 Mg Tab) 10 mg PO ONE STA Stop: 01/11/25 13:49 Last Admin: 01/11/25 14:00 Dose: 10 mg Documented By: ROGER Miscellaneous (Patient's Height &/Or Weight Needed) 1 each N/A Q10M [facility] Stop: 02/10/25 11:59 Last Admin: 01/11/25 13:02 Dose: Not Given Documented By: Admin: 01/11/25 12:49 Dose: Not Given Documented By: Admin: 01/11/25 12:49 Dose: Not Given Documented By: Admin: 01/11/25 12:49 Dose: 1 each Documented By: Admin: 01/11/25 12:37 Dose: 1 each Documented By: Admin: 01/11/25 12:37 Dose: 1 each Documented By: Admin: 01/11/25 12:33 Dose: 1 each Documented By: ROGER Norepinephrine Bitartrate (Norepinephrine/D5w 4 Mg/250 Ml) Confirm Administered Dose 4 mg IV .STK-MED ONE Stop: 01/11/25 11:47 Last Admin: 01/11/25 12:34 Dose: Not Given Documented By: ROGER Imaging Data Radiologist's Impression: Chest X-Ray 01/11/25 11:42 XR chest 1V portable HISTORY: 74 years-old Male Dyspnea acute shortness of breath COMPARISON: November 21, 2024 TECHNIQUE: AP view of the chest FINDINGS: Cardiomediastinal and hilar silhouettes are within normal limits. Emphysema with chronic interstitial coarsening. No pneumothorax or large pleural effusion. There are mild patchy left greater than right bibasilar predominant airspace opacities. Atherosclerosis of the aorta. Probable skinfold of the left apex. Bones appear grossly intact. IMPRESSION: 1. Emphysema with chronic interstitial coarsening. 2. Patchy bibasilar opacities are suspicious for an infectious or inflammatory pneumonitis. ACT 112: Negative or not required by law. The above report was generated using voice recognition software. It may contain grammatical, syntax or spelling errors. Electronically signed by: Martin Newton M.D. 01/11/2025 12:05 PM Discharge Plan Visit Data Chief Complaint: Respiratory Problems ED Provider: Jose Ruby Discharge Problem: Hypoxia Forms Stand Alone Forms: [facility] Prescriptions Prescriptions: No Action metformin 1,000 mg Tablet 1,000 mg PO .DAILY AFTER SUPPER tramadol 50 mg Tablet 50 mg PO Q6 PRN (Reason: pain) Qty: 30 0RF gabapentin 100 mg Capsule 100 mg PO TID ipratropium-albuterol 0.5 mg-3 mg(2.5 mg base)/3 mL Solution For Nebulization 3 ml INHALATION BID thiamine HCl (vitamin B1) 100 mg Tablet 100 mg PO DAILY pantoprazole 20 mg tablet,delayed release (DR/EC) 20 mg PO DAILYBB insulin aspart U-100 [Novolog FlexPen U-100 Insulin] 100 unit/mL (3 mL) insulin pen 1 sliding scale dose subcut AC Rx Instructions: per son insulin glargine [Lantus Solostar U-100 Insulin] 100 unit/mL (3 mL) insulin pen 15 unit SUBCUT QAM midodrine 5 mg tablet 5 mg PO TID Qty: 90 0RF Rx Instructions: do not give last dose of day after 6PM or within 4 hrs of bedtime Referrals Referrals: Jennifer Soni [Primary Care Provider] -
[2025-01-11] MEDS ORDERED: Patient's HEIGHT &/or WEIGHT Needed SCH (12:00)
[2025-01-11 12:05] LABS: Base Excess VBG -11.1 mEq/L; HCO3 VBG 18 mmol/L; Oxygen Saturation VBG < 60.0 %; PCO2 VBG 48 mmHg (38-50); PO2 VBG 37 mmHg; pH VBG 7.17 (7.36-7.41)
--- NOTE | 2025-01-11 12:06 | XRay Report ---
XR chest 1V portable HISTORY: 74 years-old Male Dyspnea acute shortness of breath COMPARISON: November 21, 2024 TECHNIQUE: AP view of the chest FINDINGS: Cardiomediastinal and hilar silhouettes are within normal limits. Emphysema with chronic interstitial coarsening. No pneumothorax or large pleural effusion. There are mild patchy left greater than right bibasilar predominant airspace opacities. Atherosclerosis of the aorta. Probable skinfold of the lef t apex. Bones appear grossly intact. IMPRESSION: 1. Emphysema with chronic interstitial coarsening. 2. Patchy bibasilar opacities are suspicious for an infectious or inflammatory pneumonitis. ACT 112: Negative or not required by law. The above report was generated using voice recognition software. It may contain grammatical, syntax o r spelling errors. Electronically signed by: Martin Newton M.D. 01/11/2025 12:05 PM
[2025-01-11 12:18] LABS: Basophils # (auto) 0.05 K/uL (0.00-0.20); Basophils % (auto) 0.5 %; Eosinophils # (auto) 0.01 K/uL (0.00-0.50); Eosinophils % (auto) 0.1 %; Hemoglobin 14.7 g/dl (14.0-18.0); Immature Granulocytes # (auto) 0.04 K/uL (0.01-0.20); Immature Granulocytes % (auto) 0.4 %; Lymphocytes # (auto) 1.08 K/uL (1.20-3.40); Lymphocytes % (auto) 10.6 %; Mean Corpuscular Hemoglobin 30.6 pg (25.0-34.0); Mean Corpuscular Hgb Conc 33.4 g/dL (32.0-36.0); Mean Corpuscular Volume 91.5 fL (80.0-100.0); Mean Platelet Volume 9.2 fL (9.4-12.4); Monocytes # (auto) 0.44 K/uL (0.11-0.59); Monocytes % (auto) 4.3 %; Neutrophils # (auto) 8.53 K/uL (1.40-6.50); Neutrophils % (auto) 84.1 %; Platelet Count 326 K/uL (130-400); RDW Standard Deviation 47.1 fL (36.4-46.3); Red Blood Count 4.81 M/uL (4.70-6.10); White Blood Count 10.15 K/ul (4.8-10.8)
[2025-01-11] MEDS ORDERED: VANCOMYCIN CONSULT ACTIVE PRN (12:33)
[2025-01-11] MEDS: Patient's HEIGHT &/or WEIGHT Needed SCH (12:33)
[2025-01-11] MEDS: ALBUT/IPRATROP 3MG/0.5MG NEB 3 ML VIAL NEB STA (12:33)
[2025-01-11 12:34] LABS: Albumin Globulin Ratio 0.9 (0.9-2); Albumin Level 3.3 gm/dl (3.4-5.0); BUN Creatinine Ratio 24.3 (10-20); Bilirubin,Total 0.7 mg/dl (0.2-1.0); Calcium 8.9 mg/dl (8.6-10.3); Creatinine Clr Calc Pharmacy 25.9 ml/min; Globulin 3.8 gm/dl (2.5-4.0); Potassium 3.9 mmol/L (3.5-5.1); Total Protein 7.1 gm/dl (6.0-8.3)
[2025-01-11] MEDS: NOREPINEPHRINE/D5W 4 MG/250 ML IV ONE (12:34)
[2025-01-11 12:35] LABS: INR 1.1 (0.9-1.1); Prothrombin Time 11.8 Seconds (9.0-12.0)
[2025-01-11 12:41] LABS: Troponin I High Sensitivity 17.8 pg/ml (0-20)
[2025-01-11] MEDS: AMPICILLIN/SULBACTAM SOD 3,000 MG/100 ML BAG IV STA (12:41)
--- NOTE | 2025-01-11 13:06 | Electrocardiogram Report ---
Test Reason : Blood Pressure : */* mmHG Vent. Rate : 125 BPM Atrial Rate : 125 BPM P-R Int : 136 ms QRS Dur : 76 ms QT Int : 322 ms P-R-T Axes : 79 -79 80 degrees QTcB Int : 464 ms Sinus tachycardia Left anterior fascicular block Nonspecific ST abnormality Inferior leads Abnormal ECG When compared with ECG of 21-Nov-2024 13:19, Premature ventricular complexes are no longer Present Vent. rate has increased by 53 bpm Confirmed by Jalen Santiago ([id number]) on 01/11/2025 1:06:17 PM Referred By: Confirmed By: Jalen Santiago
[2025-01-11] MEDS: VANCOMYCIN HCL 1,250 MG in SODIUM CHLORIDE 0.9% 500 ML IV ONE (13:10)
[2025-01-11] MEDS: SODIUM CHLORIDE 0.9% 1,000 ML IV ONE (13:10)
[2025-01-11 13:27] LABS: Adenovirus PCR Not Detected (NotDetected); Bordetella parapertussis PCR Not Detected (NotDetected); Bordetella pertussis PCR Not Detected (NotDetected); Chlamydia pneumoniae PCR Not Detected (NotDetected); Coronavirus 229E PCR Not Detected (NotDetected); Coronavirus CoV-2 (COVID19)PCR Not Detected (NotDetected); Coronavirus HKU1 PCR Not Detected (NotDetected); Coronavirus NL63 PCR Not Detected (NotDetected); Coronavirus OC43PCR Not Detected (NotDetected); Human Metapneumovirus PCR Not Detected (NotDetected); Influenza A PCR Not Detected (NotDetected); Influenza B PCR Not Detected (NotDetected); Mycoplasma pneumoniae PCR Not Detected (NotDetected); Parainfluenza Virus 1 PCR Not Detected (NotDetected); Parainfluenza Virus 2 PCR Not Detected (NotDetected); Parainfluenza Virus 3 PCR Not Detected (NotDetected); Parainfluenza Virus 4 PCR Not Detected (NotDetected); Respiratory Syncytial VirusPCR Not Detected (NotDetected); Rhinovirus/Enterovirus PCR Not Detected (NotDetected)
--- NOTE | 2025-01-11 13:29 | History & Physical Report ---
Date of Service January 11, 2025 Assessment & Plan (1) Lactic acidosis: (2) Severe sepsis: (3) Aspiration pneumonitis: (4) Diabetes mellitus type 2, controlled: (5) GERD (gastroesophageal reflux disease): Plan This is a 74 y/o male with DM2, hypotension on chronic midodrine, GERD, recent bilateral hip fractures s/p repair, and other history as outlined below who presented to the ED today from [facility] with concern for aspiration and with hypoxia. Work-up in the ED revealed an elevated lactate at 8.5, procalcitonin 10.70, elevated creatinine at 2.02 (baseline appears around 1.3-1.4 on review of prior labs). Chest x-ray personally reviewed and shows bibasilar opacities, concerning for aspiration pneumonitis. Pt started on levophed for BP support in the ED with improvement in pressures. Sats appear stable on 15 L via NRB. #Severe sepsis #Lactic acidosis #Aspiration pneumonitis - Attempted to stop Levophed infusion but pt with recurrent hypotension with BP in the 50s so infusion restarted - Discussed with RN - will do bedside swallow and if passes, give dose of midodrine 10 mg (missed AM dose) then repeat attempt to stop infusion - Continue Unasyn and Vancomycin for broad coverage for now - blood cultures pending. - Formal speech therapy evaluation for recommendations - Continue supplemental O2 support - wean as tolerated #Insulin-requiring DM2 (last A1c was 01/04/25 and was 6.3) - Stop Metformin in view of lactic acidosis - Continue insulin sliding scale - BSG ACHS #GERD - Chronic, stable - continue PPI therapy #Chronic hypotension - on midodrine - Continue midodrine - Wean levophed as able - pt declines central line so giving peripherally #CARLO on CKD - Trend BMP - Avoid nephrotoxins Pt seen and reviewed with collaborating physician, Dr. Tovar. Plan of care discussed and as outlined above. Code status: DNR/DNI DVT prophylaxis: subQ heparin Eventual PT/OT evaluations once more medically stable Mode Poe PA-C Reevaluated pt at 14:45 - Pt still mentating at baseline. Persistent tachycardia. Maintaining sats on 15 L via NRB. Levophed held about 30-40 minutes post-administration of midodrine. Initial repeat BP in the 80s but subsequently dropped to systolic of 70 within 5 minutes off pressors so Levophed resumed. Pt reports overall he feels about the same other than mildly increased work of breathing. Repeat lactate and VBG are worse. Discussed goals of care with patient and his son. Pt would like limited aggressive measures - he is agreeable to admission to ICU, continued pressors, central line if needed, but would not want intubation, CPR. He has been declining urinary catheter placement but has been unable to urinate since presentation to the ED. Bladder scan showed 300 cc. Discussed with patient the need for accurate measurement of urine output in view of his clinical condition and the risk of worsening renal function with urinary retention - he is agreeable to the catheter being placed. Son updated at the bedside - all questions answered. Discussed case with Dr. Tovar and Dr. Taveras. Reviewed plan of care with ED RN and ED physician. I spent a total of 125 minutes coordinating, documenting, and providing care for this patient excluding time spent in the performance of separately billed services by another provider/QHP. Mode Poe PA-C History of Present Illness Chief Complaint: possible aspiration Primary Care Provider: Jennifer Soni This is a 74 y/o male with DM2, hypotension on chronic midodrine, GERD, recent bilateral hip fractures s/p repair, and other history as outlined below who presented to the ED today from [facility] with concern for aspiration and with hypoxia. Per report from , pt was eating breakfast when he appeared to aspirate and start vomiting. He continue to "decline" after this event and was noted to be hypoxic so oxygen via OxyMask applied. Sats with O2 were reportedly 80% when EMS arrived. NRB applied and sats improved to ~90%. BPs were reportedly low with systolic in the 50s so pt started on Levophed with improvement of systolic to the 90s. ED RN contacted facility and pt did not receive his morning midodrine today due to the episode of possible aspiration and emesis. Pt notes ongoing issues with fatigue and weakness since being discharged from the hospital last month. This seems to particularly worsen throughout the day, and he requires more assistance by evenings. His son notes that pt continues to try to ambulate without assistance and thus has had falls since being at . Pt notes ongoing issues with hip pain since surgery. Denies issues moving bowels or with urination. Pt's son notes intermittent issues with confusion but this has been no worse than prior. Allergies Allergy/AdvReac Type Severity Reaction Status Date / Time No Known Allergies Allergy Verified 02/28/24 17:00 Home Medications Medication Instructions Recorded Confirmed Type metformin 1,000 mg tablet 1,000 mg PO .DAILY AFTER SUPPER 06/18/23 01/11/25 History insulin aspart U-100 100 unit/mL 1 sliding scale dose subcut AC 02/21/24 01/11/25 History (3 mL) subcutaneous pen (Novolog FlexPen U-100 Insulin aspart) insulin glargine 100 unit/mL (3 15 unit subcut QAM 02/21/24 01/11/25 History mL) subcutaneous pen (Lantus Solostar U-100 Insulin) pantoprazole 20 mg tablet,delayed 20 mg PO DAILYBB 02/21/24 01/11/25 History release midodrine 5 mg tablet 5 mg PO TID #90 tabs 03/06/24 01/11/25 Rx tramadol 50 mg tablet 50 mg PO Q6 PRN pain #30 tabs 10/24/24 01/11/25 Rx gabapentin 100 mg capsule 100 mg PO TID 01/11/25 01/11/25 History ipratropium 0.5 mg-albuterol 3 mg 3 ml inhalation BID 01/11/25 01/11/25 History (2.5 mg base)/3 mL nebulization soln thiamine HCl (vitamin B1) 100 mg 100 mg PO DAILY 01/11/25 01/11/25 History tablet Past Med/Surg History Problem List (Updated 01/11/25 @ 16:13 by Peng Taveras MD) Septic shock Aspiration pneumonitis Severe sepsis Lactic acidosis Anemia (Acute) Anticoagulated (Acute) Fall (Acute) Fracture of right hip (Acute) Intertrochanteric fracture of right femur Chronic ulcer of right foot with fat layer exposed Hypomagnesemia Intertrochanteric fracture of left hip Chronic venous stasis dermatitis Diabetes mellitus type 2, controlled Closed fracture of greater trochanter of left femur (Acute) Fall from standing (Acute) Rhabdomyolysis (Acute) Dermatitis of lower extremity GERD (gastroesophageal reflux disease) Alcohol intoxication Closed T12 fracture Fall (Acute) Hypoxia (Acute) Pneumonia Hypomagnesemia (Acute) Leukocytosis (Acute) Elevated lactic acid level (Acute) CARLO (acute kidney injury) (Acute) Acute hypotension (Acute) Hypoxia (Acute) Metabolic encephalopathy Exposure to body fluid Cellulitis (Acute) Fecal soiling due to fecal incontinence Acute dehydration (Acute) Acute hypotension (Acute) Acute UTI (Acute) Encounter for pre-operative examination Right nephrolithiasis Weakness Low blood pressure DM2 (diabetes mellitus, type 2) GERD (gastroesophageal reflux disease) Esophageal candidiasis Urinary retention Phimosis Hydronephrosis, right Medical History Hypomagnesemia 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 Diabetes mellitus, type 2 Cataract upcoming surgery for correction Low blood pressure On Midodrine Chronic obstructive pulmonary disease Surgical History History of esophagogastroduodenoscopy (EGD) History of colonoscopy History of tooth extraction Family History Other No family history of adverse response to anesthesia Social History Smoking Status: Unknown if ever smoked Tobacco Type: Cigarettes Cigarettes Per Day: 20; Second Hand Exposure: No; Do You Dip or Chew Tobacco: No; Hx Alcohol Use: No Hx Substance Use: No Preferred Language: Indonesian Communication Ability: Effective Technical Education Teacher Required: No Beliefs That Will Affect Care: None Current Living Situation: Longterm Current Living Situation Comment: son lives down the road Feels Safe at Home: Yes Assistive Devices: Walker Review of Systems Review of Systems: All systems reviewed & are unremarkable except as noted in Subjective Physical Exam Physical Exam: Please see physician note for details of the physical exam. Results & Data Results & Data Vital Signs (Past 12 Hours) Vital Signs Temp Pulse Resp BP Pulse Ox O2 Del Method O2 Flow Rate 01/11/25 13:21 116 H 27 H 94 Non-rebreather 01/11/25 13:20 91/65 L 01/11/25 13:20 91/65 L 01/11/25 13:19 75/48 L 01/11/25 13:15 117 H 23 93 Non-rebreather 15 01/11/25 13:15 74/53 L 01/11/25 13:10 91/68 L 01/11/25 13:10 91/68 L 01/11/25 13:05 94/68 L 01/11/25 13:03 147 H 24 95 Non-rebreather 15 01/11/25 13:01 93/66 L 01/11/25 13:01 93/66 L 01/11/25 13:01 93/66 L 01/11/25 13:00 120 H 22 94 Non-rebreather 15 01/11/25 12:55 108/70 01/11/25 12:55 108/70 01/11/25 12:55 108/70 01/11/25 12:54 124 H 26 H 94 Non-rebreather 15 01/11/25 12:51 112 H 24 94 Non-rebreather 15 01/11/25 12:51 100/50 L 01/11/25 12:51 100/50 L 01/11/25 12:45 105/73 01/11/25 12:36 112 H 26 H 92 Non-rebreather 15 01/11/25 12:35 94/61 L 01/11/25 12:33 111 H 25 H 91 Non-rebreather 15 01/11/25 12:31 101/63 01/11/25 12:25 109/82 01/11/25 12:25 109/82 01/11/25 12:20 96/67 L 01/11/25 12:20 96/67 L 01/11/25 12:15 117 H 28 H 92 Non-rebreather 15 01/11/25 12:10 99/73 L 01/11/25 12:06 109 H 24 92 Non-rebreather 15 01/11/25 12:05 97/77 L 01/11/25 12:05 121 H 01/11/25 12:00 116 H 26 H 114/76 91 Non-rebreather 15 01/11/25 11:59 114/76 01/11/25 11:59 114/76 01/11/25 11:57 116 H 26 H 95 Non-rebreather 15 01/11/25 11:55 73/55 L 01/11/25 11:55 73/55 L 01/11/25 11:55 73/55 L 01/11/25 11:52 59/48 L 01/11/25 11:48 95 Non-rebreather 15 01/11/25 11:25 91 Non-rebreather 15 01/11/25 11:25 36.6 C 125 H 22 52/40 L 91 Non-rebreather 15 01/11/25 11:25 Non-rebreather 15 Laboratory Results Lab Results 01/11/25 01/11/25 01/11/25 Range/Units 11:50 12:03 Unknown WBC 10.15 (4.8-10.8) K/ul RBC 4.81 (4.70-6.10) M/uL Hgb 14.7 (14.0-18.0) g/dl Hct 44.0 (42.0-52.0) % MCV 91.5 (80.0-100.0) fL MCH 30.6 (25.0-34.0) pg MCHC 33.4 (32.0-36.0) g/dL RDW Std Deviation 47.1 H (36.4-46.3) fL RDW Coeff of Cassia 14.0 (11.5-14.5) % Plt Count 326 (130-400) K/uL MPV 9.2 L (9.4-12.4) fL Immature Gran % (Auto) 0.4 % Neut % (Auto) 84.1 % Lymph % (Auto) 10.6 % Angelina % (Auto) 4.3 % Eos % (Auto) 0.1 % Baso % (Auto) 0.5 % Neut # (Auto) 8.53 H (1.40-6.50) K/uL Lymph # (Auto) 1.08 L (1.20-3.40) K/uL Angelina # (Auto) 0.44 (0.11-0.59) K/uL Eos # (Auto) 0.01 (0.00-0.50) K/uL Baso # (Auto) 0.05 (0.00-0.20) K/uL Immature Gran # (Auto) 0.04 (0.01-0.20) K/uL PT 11.8 (9.0-12.0) Seconds INR 1.1 (0.9-1.1) VBG pH 7.17 L (7.36-7.41) VBG pCO2 48 (38-50) mmHg VBG pO2 37 mmHg VBG HCO3 18 mmol/L VBG O2 Saturation < 60.0 % VBG Base Excess -11.1 mEq/L Sodium 141 (136-145) mmol/L Potassium 3.9 (3.5-5.1) mmol/L Chloride 106 (98-107) mmol/L Carbon Dioxide 20 L (21-32) mmol/L Anion Gap 15 H (3-11) BUN 49 H (6-23) mg/dl Creatinine 2.02 H (0.6-1.4) mg/dl Est Cr Clr Drug Dosing 25.9 ml/min eGFR 33.76 BUN/Creatinine Ratio 24.3 H (10-20) Glucose 155 H (70-99(Fasting)) mg/dl Lactate 8.5 H* (0.4-2.0) mmol/L Calcium 8.9 (8.6-10.3) mg/dl Total Bilirubin 0.7 (0.2-1.0) mg/dl AST 30 (13-39) U/L ALT 21 (7-52) U/L Alkaline Phosphatase 280 H (34-104) U/L Troponin I High Sens 17.8 (0-20) pg/ml B-Natriuretic Peptide 110 H (0-100) pg/ml Total Protein 7.1 (6.0-8.3) gm/dl Albumin 3.3 L (3.4-5.0) gm/dl Globulin 3.8 (2.5-4.0) gm/dl Albumin/Globulin Ratio 0.9 (0.9-2) Procalcitonin 10.70 H (0-0.5) ng/ml Adenovirus (PCR) Not Detected (NotDetected) B. pertussis DNA (PCR) Not Detected (NotDetected) B.parapertussis DNA PCR Not Detected (NotDetected) C. pneumoniae DNA (PCR) Not Detected (NotDetected) Coronavirus OC43 (PCR) Not Detected (NotDetected) Coronavirus HKU1 (PCR) Not Detected (NotDetected) Coronavirus 229E (PCR) Not Detected (NotDetected) SARS-CoV-2 (PCR) Not Detected (NotDetected) Coronavirus NL63 (PCR) Not Detected (NotDetected) Human Metapneumovir PCR Not Detected (NotDetected) Influenza Type A (PCR) Not Detected (NotDetected) Influenza Type B (PCR) Not Detected (NotDetected) M. pneumoniae (PCR) Not Detected (NotDetected) Parainfluenza 1 (PCR) Not Detected (NotDetected) Parainfluenza 2 (PCR) Not Detected (NotDetected) Parainfluenza 3 (PCR) Not Detected (NotDetected) Parainfluenza 4 (PCR) Not Detected (NotDetected) RSV (PCR) Not Detected (NotDetected) Entero/Rhino (PCR) Not Detected (NotDetected) Diagnostic Findings Chest X-Ray 01/11/25 11:42 XR chest 1V portable HISTORY: 74 years-old Male Dyspnea acute shortness of breath COMPARISON: November 21, 2024 TECHNIQUE: AP view of the chest FINDINGS: Cardiomediastinal and hilar silhouettes are within normal limits. Emphysema with chronic interstitial coarsening. No pneumothorax or large pleural effusion. There are mild patchy left greater than right bibasilar predominant airspace opacities. Atherosclerosis of the aorta. Probable skinfold of the left apex. Bones appear grossly intact. IMPRESSION: 1. Emphysema with chronic interstitial coarsening. 2. Patchy bibasilar opacities are suspicious for an infectious or inflammatory pneumonitis. ACT 112: Negative or not required by law. The above report was generated using voice recognition software. It may contain grammatical, syntax or spelling errors. Electronically signed by: Martin Newton M.D. 01/11/2025 12:05 PM Supervising Physician Co-Signing Physician Notes I have seen and discussed the case with the collaborating advanced practitioner. I agree with the above H&P. I have reviewed and confirmed the patients medical history, the findings on physical examination, and the patients diagnosis and treatment plan with Deepika SMITH and agree with the information documented. Mr. Griffin is a 74 yo gentleman with DM2, hypotension on chronic midodrine, GERD, recent bilateral hip fractures s/p repair admitted for sepsis 2/2 aspiration event. Patient was eating breakfast, began to cough and vomit. Patient unable to take his home meds this morning as he was vomiting. Required peripheral levo given history of hypotension and reliance on midodrine. Doing well on exam at bedside and no resp distress or other concerns History of from son revealed decline over last year with multiple falls. When discussing aspiration, patient states he does cough often while eating and drinking and he is unsure he would abide by any particular diets. GENERAL APPEARANCE: AxOx4, chronically ill gentleman, no acute distress. HEENT: NC, AT. MMM. EOMI, clear conjunctiva, oropharynx clear. NECK: Supple without lymphadenopathy. No stiffness or restricted ROM. HEART: Normal rate and regular rhythm, normal S1/S1, no m/r/g LUNGS: CTAB, moving air well. nonrebreather 15 L ABDOMEN: Soft, nontender, nondistended with good bowel sounds heard. BACK: No CVAT, no obvious deformity. EXTREMITIES: Without cyanosis, clubbing or edema. NEUROLOGICAL: Grossly nonfocal. Alert and oriented, moving all 4 extremities. CN not formally tested but appear grossly intact. Skin: Warm and dry without any rash. #Severe sepsis iso aspiration pneumonia #Anion gap metabolic acidosis iso lactic acidosis lactate 8.5 (hypoxia, chronic metformin use given history of always having mild elevation in lactate would consider as potential exacerbating element, aspiration) CXR with bilateral opacities, procal elevated known hypotention, did not recieve midodrine this am Continue peripheral levo as family and patient would like to avoid central lines work to ween levo, admit to ICU for pressore management PO midodrine 10mg now as patient passed bedside swallow continue vanc and unasyn, MRSA nare given patient in nursing facility repeat lactate and vbg hold metformin consider d/c as a1c 7.1 previously well at goal given age (A1C <8 .0%) speech eval #CARLO on CKD 2.02 on admission repeat bmp and avoid nephrotoxic agents #protein calorie malnutrition BMI 19.4 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 All of the aforementioned completed outside of collaborating with the assigned advanced practitioner for a full treatment plan. I have reviewed the advanced practitioner's documentation, and I agree with, and take responsibility for the plan of care (4) Diabetes mellitus type 2, controlled Diabetes mellitus complication detail: with polyneuropathy Diabetes mellitus complication status: with neurologic complications Diabetes mellitus filler leaf cutter long insulin use: with half-way use Qualified Code(s): E11.42 - Type 2 diabetes mellitus with diabetic polyneuropathy; Z79.4 - jail (current) use of insulin (5) GERD (gastroesophageal reflux disease) Esophagitis presence: esophagitis presence not specified Qualified Code(s): K21.9 - Gastro-esophageal reflux disease without esophagitis
[2025-01-11] MEDS: MIDODRINE HCL 10 MG TAB PO STA (14:00)
[2025-01-11 14:10] LABS: iSTAT Creatinine 2.2 mg/dl (0.6-1.3); iSTAT Ionized Calcium 1.14 mmol/l (1.12-1.32); iSTAT Potassium 3.8 mmol/L (3.3-5.0)
[2025-01-11 14:58] LABS: Base Excess VBG -15.1 mEq/L; HCO3 VBG 15 mmol/L; Oxygen Saturation VBG < 60.0 %; PCO2 VBG 48 mmHg (38-50); PO2 VBG 35 mmHg; pH VBG 7.09 (7.36-7.41)
[2025-01-11] MEDS ORDERED: DEXTROSE 50% 50 ML SYRINGE IV PRN (16:11)
[2025-01-11] MEDS ORDERED: GLUCOSE 10 TAB/TUBE PO PRN (16:11)
[2025-01-11] MEDS ORDERED: CARBOHYDRATES FOR HYPOGLYCEMIA PO PRN (16:11)
[2025-01-11] MEDS ORDERED: GLUCOSE 40% GEL 15 GM TUBE PO PRN (16:11)
[2025-01-11] MEDS ORDERED: GLUCAGON FOR INJ 1 MG VIAL SQ PRN (16:11)
[2025-01-11] MEDS ORDERED: HYDROCORTISONE SOD SUCCINATE 100 MG/2 ML VIAL IV SCH (16:15)
--- NOTE | 2025-01-11 16:19 | Critical Care Consultation ---
Date of Consultation January 11, 2025 Assessment & Plan (1) Septic shock: (2) Aspiration pneumonitis: (3) Lactic acidosis: (4) CARLO (acute kidney injury): Plan 74-year-old male with a past medical history of chronic hypotension on midodrine, type 2 diabetes mellitus, GERD, recent bilateral hip fracture status postrepair who presented from alf due to aspiration and hypoxemic respiratory failure Neurologic: Avoid sedating medications if able. Multimodal pain control given history of recent hip fracture last month. Pulmonary: Continue wean oxygen as able. Chest x-ray with concerning findings for aspiration pneumonia. Start hydrocortisone given severe. Start Zosyn and azithromycin. Check urine Legionella antigen. Respiratory viral panel negative. Cardiovascular: Patient with chronic hypotension. Continue midodrine. Continue Levophed peripherally. If pressor requirement goes up, will need to consider central line. Hold all antihypertensives. Adequately resuscitated with crystalloids. Consider as needed albumin. Recent echo with normal LVEF. Gastrointestinal: NPO except for medications. Will need speech therapy consult. Mild chronic alkaline phosphatase elevation. Renal: Place Angeles catheter to monitor urine output. Patient agreeable. Lactic acidosis likely secondary to sepsis and possibly metformin. Infectious disease: Obtain urine and blood cultures. Respiratory viral panel negative. Urine Legionella antigen pending. Hematologic: Patient hemoconcentrated. A history of chronic iron deficiency anemia. Endocrine: TSH in October normal. Maintain euglycemia. Stress dose steroids given severe and septic shock. Lines and tubes: Peripheral IVs in place and Angeles to be placed. VTE prophylaxis: Heparin 5000 units twice daily CODE STATUS: DNR/DNI. Okay for pressors. Family at bedside: Son updated at bedside Disposition: ICU overnight and reevaluate tomorrow. Care coordinated with the ER nurse and hospitalist service. I have personally spent 48 minutes of critical care time in the direct management of this patient. This is a life/limb threatening event. This includes time spent evaluating patient, direct bedside care, chart review, placing orders, interpretation of diagnostic studies, discussion with consultants, patient, and family members, as well as other required patient management activities. This time is exclusive of all separately billable procedures, and teaching time and separate from and in addition to any other critical care service time. Thank you for allowing us to participate in the care of this patient. History of Present Illness Reason for Consultation: Septic shock History of Present Illness 74-year-old male with a history of chronic hypotension on midodrine therapy, GERD, recent bilateral hip fracture status postrepair who presented from a alf today due to a witnessed aspiration event which led to vomiting. He had oxygen saturations in the 80s. Chest x-ray today demonstrated bilateral lower lobe infiltrates, left greater than right. He has remained hypotensive in the ER and started on peripheral Levophed. He received a dose of vancomycin to Unasyn in the ER. He also received 2 L of fluid. Echo in October revealed a normal EF of 60 to 65%. Labs this admission demonstrated normal white count. Electrolytes unremarkable. Creatinine elevated to 2.02 with a normal baseline of about 1.39. Respiratory viral panel negative on admission. Lactate initially 8.5 and went up to 9.4. LFTs unremarkable except for mildly elevated alkaline phosphatase which is chronic. proBNP unremarkable. Pro-Lorenzo elevated to 10.7. Blood cultures pending. Patient initially refused a Angeles catheter, but is now willing to accept a Angeles catheter. Placement will be attempted in the ER. Nasal MRSA screen pending. Patient's son at bedside and updated. Patient currently denying any shortness of breath or chest pain. No nausea or vomiting. Allergies Allergy/AdvReac Type Severity Reaction Status Date / Time No Known Allergies Allergy Verified 02/28/24 17:00 Home Medications Medication Instructions Recorded Confirmed Type metformin 1,000 mg tablet 1,000 mg PO .DAILY AFTER SUPPER 06/18/23 01/11/25 History insulin aspart U-100 100 unit/mL 1 sliding scale dose subcut AC 02/21/24 01/11/25 History (3 mL) subcutaneous pen (Novolog FlexPen U-100 Insulin aspart) insulin glargine 100 unit/mL (3 15 unit subcut QAM 02/21/24 01/11/25 History mL) subcutaneous pen (Lantus Solostar U-100 Insulin) pantoprazole 20 mg tablet,delayed 20 mg PO DAILYBB 02/21/24 01/11/25 History release midodrine 5 mg tablet 5 mg PO TID #90 tabs 03/06/24 01/11/25 Rx tramadol 50 mg tablet 50 mg PO Q6 PRN pain #30 tabs 10/24/24 01/11/25 Rx gabapentin 100 mg capsule 100 mg PO TID 01/11/25 01/11/25 History ipratropium 0.5 mg-albuterol 3 mg 3 ml inhalation BID 01/11/25 01/11/25 History (2.5 mg base)/3 mL nebulization soln thiamine HCl (vitamin B1) 100 mg 100 mg PO DAILY 01/11/25 01/11/25 History tablet Patient History Medical History Hypomagnesemia 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 Diabetes mellitus, type 2 Cataract upcoming surgery for correction Low blood pressure On Midodrine Chronic obstructive pulmonary disease Surgical History History of esophagogastroduodenoscopy (EGD) History of colonoscopy History of tooth extraction Family History Other No family history of adverse response to anesthesia Social History Smoking Status: Unknown if ever smoked Tobacco Type: Cigarettes Cigarettes Per Day: 20; Second Hand Exposure: No; Do You Dip or Chew Tobacco: No; Hx Alcohol Use: No Hx Substance Use: No Preferred Language: Mosotho Communication Ability: Effective Enrollment Representative Required: No Beliefs That Will Affect Care: None Current Living Situation: [facility] Current Living Situation Comment: son lives down the road Feels Safe at Home: Yes Assistive Devices: Walker Review of Systems Review of Systems: All systems reviewed & are unremarkable except as noted in HPI & below Physical Exam Physical Exam: Constitutional: Patient appears to be of their stated age. Frail and elderly. Tachypneic. Eyes: Pupils are equal round and reactive to light. Conjunctivae are normal. Anicteric sclera. Ears nose, mouth and throat: Mallampati class 2. Normal posterior oropharynx. Uvula is midline. Neck: Trachea is midline. Visual inspection is normal. Respiratory: Coarse rhonchi bilaterally. Mild tachypnea. Cardiovascular: Tachycardic. Regular rhythm.. No murmurs. No edema. Gastrointestinal: Normal bowel sounds, soft, nontender and nondistended. No hepatosplenomegaly noted. Musculoskeletal: No cyanosis. Patient is able to move all extremities. Strength is 5 out of 5 in the upper and lower extremities. Skin: No rashes, warm dry and intact. Neurologic: No obvious focal neurological deficits seen. Psychiatric: Alert and oriented x3 with a euthymic affect. Results & Data Results & Data Vital Signs (Past 12 Hours) Vital Signs Temp Pulse Resp BP Pulse Ox O2 Del Method O2 Flow Rate 01/11/25 15:07 85/61 L 01/11/25 15:06 111 H 22 97 01/11/25 15:05 73/48 L 01/11/25 15:03 113 H 24 96 01/11/25 15:00 70/54 L 01/11/25 14:46 86/57 L 01/11/25 14:42 116 H 51 H 89 L 01/11/25 14:36 114 H 22 91 01/11/25 14:27 112 H 29 H 93 Non-rebreather 15 01/11/25 14:25 108/64 01/11/25 14:25 108/64 01/11/25 14:21 91/66 L 01/11/25 14:18 110 H 24 94 Non-rebreather 15 01/11/25 14:15 96/66 L 01/11/25 14:11 91/67 L 01/11/25 14:06 96 H 18 94 Non-rebreather 15 01/11/25 14:05 85/50 L 01/11/25 14:02 93/66 L 01/11/25 13:55 99/71 L 01/11/25 13:54 112 H 22 92 Non-rebreather 15 01/11/25 13:50 90/66 L 01/11/25 13:40 86/58 L 01/11/25 13:39 113 H 21 93 Non-rebreather 15 01/11/25 13:36 112 H 24 93 Non-rebreather 15 01/11/25 13:35 92/64 L 01/11/25 13:25 82/65 L 01/11/25 13:24 115 H 29 H 94 Non-rebreather 15 01/11/25 13:21 116 H 27 H 94 Non-rebreather 15 01/11/25 13:20 91/65 L 01/11/25 13:20 91/65 L 01/11/25 13:19 75/48 L 01/11/25 13:15 117 H 23 93 Non-rebreather 15 01/11/25 13:15 74/53 L 01/11/25 13:10 91/68 L 01/11/25 13:10 91/68 L 01/11/25 13:05 94/68 L 01/11/25 13:03 147 H 24 95 Non-rebreather 15 01/11/25 13:01 93/66 L 01/11/25 13:01 93/66 L 01/11/25 13:01 93/66 L 01/11/25 13:00 120 H 22 94 Non-rebreather 15 01/11/25 12:55 108/70 01/11/25 12:55 108/70 01/11/25 12:55 108/70 01/11/25 12:54 124 H 26 H 94 Non-rebreather 15 01/11/25 12:51 112 H 24 94 Non-rebreather 15 01/11/25 12:51 100/50 L 01/11/25 12:51 100/50 L 01/11/25 12:45 105/73 01/11/25 12:36 112 H 26 H 92 Non-rebreather 15 01/11/25 12:35 94/61 L 01/11/25 12:33 111 H 25 H 91 Non-rebreather 15 01/11/25 12:31 101/63 01/11/25 12:25 109/82 01/11/25 12:25 109/82 01/11/25 12:20 96/67 L 01/11/25 12:20 96/67 L 01/11/25 12:15 117 H 28 H 92 Non-rebreather 15 01/11/25 12:10 99/73 L 01/11/25 12:06 109 H 24 92 Non-rebreather 15 01/11/25 12:05 97/77 L 01/11/25 12:05 121 H 01/11/25 12:00 116 H 26 H 114/76 91 Non-rebreather 15 01/11/25 11:59 114/76 01/11/25 11:59 114/76 01/11/25 11:57 116 H 26 H 95 Non-rebreather 15 01/11/25 11:55 73/55 L 01/11/25 11:55 73/55 L 01/11/25 11:55 73/55 L 01/11/25 11:52 59/48 L 01/11/25 11:48 95 Non-rebreather 15 01/11/25 11:25 91 Non-rebreather 15 01/11/25 11:25 36.6 C 125 H 22 52/40 L 91 Non-rebreather 15 01/11/25 11:25 Non-rebreather 15 Coding Level of Care Code 52746 CRITICAL CARE 1ST 30-74M Diagnoses Septic shock A41.9; R65.21 Aspiration pneumonitis J69.0 Lactic acidosis E87.20 CARLO (acute kidney injury) N17.9
[2025-01-11 16:32] LABS: Appearance Urine Cloudy (Clear); Bacteria Urine Automated None Seen (None Seen); Bilirubin Urine Negative (Negative); Blood Urine 1+ (Negative); Color Urine Yellow; Epithelial Cell Urine Auto 0-2 /hpf (0-2); Glucose Urine UA Negative (Negative); Ketones Urine Negative (Negative); Leukocyte Esterase Urine 3+ (Negative); Nitrite Urine Negative (Negative); Protein Urine 2+ (Negative); RBC Urine Automated 0-2 /hpf (0-2); Specific Gravity Urine 1.014 (1.000-1.030); Urobilinogen Urine Negative (Negative); WBC Urine Automated >50 /hpf (0-5); pH Urine 5.5 (4.5-7.5)
[2025-01-11] MEDS ORDERED: ICU Protocol for HYPERglycemia SCH (16:55)
[2025-01-11] MEDS: AZITHROMYCIN 500 MG/255 ML BAG IV ONE (16:57)
[2025-01-11] MEDS: 4.5GM X1 IV STA (16:57)
[2025-01-11] MEDS: HYDROCORTISONE SOD 50 MG in SYRINGE 0 ML IV SCH (17:50)
[2025-01-11] MEDS: INSULIN ASPART PER UNIT CHARGE SC SCH (18:21)
--- OUTSIDE RECORDS SUMMARY | 2025-01-11 20:12 | External Medical Summary ---
Author Name Unknown Address Unknown Organization K01:LABORATORY [facility] [place] - [address] [place] [address] Laboratory Report Ordering Provider Test Date Status RUSSELANAHY 11/30/2024 05:51:00 Final Observation Date Value Abnormality Reference (Units ) Status CRP, low-sensitivity 11/30/2024 05:51:00 136 Above high normal <=5 (mg/L) Final Performing Location LABORATORY [facility] - [address] [place] [address]
--- OUTSIDE RECORDS SUMMARY | 2025-01-11 20:12 | External Medical Summary | Summary of Care ---
Author Name Unknown Organization [facility] Address [address] [facility] [address] Phone [phone] Care Team Providers Care Master Data Analyst Name Role Phone Eve Soni MD Primary Care Provider [phone] Encounter Details Date Type Department Care Team (Late st Contact Info) Description 11/27/2024 Orders Only Lab Mobile Phlebotomy [facility] [address] [place] [address] Eve Soni MD [address] [place] [address] [address] [facility] [place] [address] Anemia, unspecified type* Allergies No known active allergiesdocumented as of this encounter (statuses as of 11/27/2024) Medications metFORMIN HCl 500 MG Oral Tablet [...] as of this encounter (statuses as of 11/27/2024) Active Problems Problem Noted Date Diagnosed Date Visual distortions of shape and size 06/19/2023 documented as of this encounter (statuses as of 11/27/2024) Social History Tobacco Use Types Packs/Day Years [...] Care Team (Late st Contact Info) Description 11/27/2024 5:10 AM EST Laboratory Lab Mobile Phlebotomy [facility] [address] [facility] [place] [address] [place] [address] Arrived 01/04/2025 8:15 AM EDT Office Visit Ophthalmology, [facility] [address] [place] [address] Hernando Sun DO [address] [place] [address] Scheduled Orders Name Type Priority Associated Diagnoses Orde r Schedule COMPREHENSIVE METABOLIC PANEL Lab STAT Anemia, unspecified type Expected: 11/27/2024, Expires: 11/27/2025 CBC WITH WBC DIFFERENTIAL Lab STAT Anemia, unspecified type Expected: 11/27/2024, Expires: 11/27/2025 Health Maintenance Due Date Last Done Comments [...] on patient's age to complete this topic Meningitis B Vaccine (Bexsero/Trumemba) Aged Out No longer eligible b ased on patient's age to complete this topic documented as of this encounter Medical Devices Not on filedocumented as of this encounter Visit Diagnoses Diagnosis Anemia, unspecified type- Primary documented in this encounter Care Teams Master Data Analyst Relationship Specialty Start Date End Date Eve Soni MD [address] [place] [address] [place] [address] PCP - General 05/31/09 documented as of this encounter
--- OUTSIDE RECORDS SUMMARY | 2025-01-11 20:12 | External Medical Summary ---
Author Name Unknown Address Unknown Organization [id number]:LABORATORY [facility] [place] - [address] [place] [address] Laboratory Report Ordering Provider Test Date Status RUSSELANAHY 12/07/2024 05:54:00 Final Observation Date Value Abnormality Reference (Units ) Status CRP, low-sensitivity 12/07/2024 05:54:00 9 Above high normal <=5 (mg/L) Final Performing Location LAB[facility]ATORY [facility] - [address] [place] [address]
--- OUTSIDE RECORDS SUMMARY | 2025-01-11 20:12 | External Medical Summary ---
Author Name Unknown Address Unknown Organization K01:LABORATORY [facility] [place] - [address] [place] [address] Laboratory Report Ordering Provider Test Date Status ANAHY GOODE 12/28/2024 10:26:40 Final Observation Date Value Abnormality Reference (Units ) Status WBC, Total 12/28/2024 10:26:40 10.23 4.00-10.80 (K/uL) Final RBC 12/28/2024 10:26:40 3.96 4.50-5.25 (M/uL) Final Hemoglobin 12/28/2024 10:26:40 12.1 Below low normal 14.0-16.8 (g/dL) Final HCT 12/28/2024 10:26:40 38.0 Below low normal 40.0-48.4 (%) Final MCV 12/28/2024 10:26:40 96.0 82.0-99.5 (fL) Final MCH 12/28/2024 10:26:40 30.6 27.0-34.0 (pg) Final MCHC 12/28/2024 10:26:40 31.8 32.0-36.0 (g/dL) Final RDW 12/28/2024 10:26:40 14.2 11.5-15.5 (%) Final Platelets 12/28/2024 10:26:40 320 140-400 (K/uL) Final MPV 12/28/2024 10:26:40 9.2 6.6-11.1 (fL) Final Nucleated erythrocytes/100 leukocytes [Ratio] in Blood by Automated count 12/28/2024 10:26:40 0 <=0 (/100 WBCs) Final Performing Location LABORATORY [facility] [place] - [address] [place] [address]
--- OUTSIDE RECORDS SUMMARY | 2025-01-11 20:12 | External Medical Summary | Summary of Care ---
Author Name Unknown Organization [facility] Address [address] [facility] [address] Phone [phone] Care Team Providers Care Technical Service Specialist Name Role Phone Eve Soni MD Primary Care Provider [phone] Encounter Details Date Type Department Care Team (Late st Contact Info) Description 12/07/2024 Orders Only Lab Mobile Phlebotomy [facility] [address] [place] [address] Eve Soni MD [address] [place] [address] [address] [facility] [place] [address] Anemia* Allergies No known active allergiesdocumented as of this encounter (statuses as of 12/07/2024) Medications metFORMIN HCl 500 MG Oral Tablet [...] membrane, left 1.25 mg IZ PRN 08/21/2024 Active ROPivacaine (Naropin) inj 1.5 mgIndications:Choroidal neovascular membrane, left 1.5 mg IJ PRN 08/21/2024 Active documented as of this encounter (statuses as of 12/07/2024) Active Problems Problem Noted Date Diagnosed Date Visual distortions of shape and size 06/19/2023 documented as of this encounter (statuses as of 12/07/2024) Social History Tobacco Use Types Packs/Day Years [...] Care Team (Late st Contact Info) Description 12/07/2024 5:00 AM EST Laboratory Lab Mobile Phlebotomy [facility] [address] [facility] [place] [address] [place] [address] Arrived 01/04/2025 8:15 AM EDT Office [facility] [place] [address] Hernando Sun DO [address] [place] [address] Scheduled Orders Name Type Priority Associated Diagnoses Orde r Schedule CBC WITH WBC DIFFERENTIAL Lab Routine Anemia Expected: 12/07/2024, Expires: 12/07/2025 COMPREHENSIVE METABOLIC PANEL Lab Routine Anemia Expected: 12/07/2024, Expires: 12/07/2025 CRP (INFLAMMATORY MARKER) Lab Routine Anemia Expected: 12/07/2024, Expires: 12/07/2025 ERYTHROCYTE SEDIMENTATION RATE (ESR) Lab Routine Anemia Expected: 12/07/2024, Expires: 12/07/2025 Health Maintenance Due Date Last Done Comments Depression Screening 1962 Hepatitis C Screening 1968 DTap/Tdap Vaccines (1 - Tdap) 01/14/1968 Pneumococcal Vaccine: 50+ Years (1 of 2 - PCV) 01/14/1968 Zoster Vaccines (1 of 2) 01/14/1968 COVID-19 Vaccine (4 - 2023-2 5 season) 2024 11/03/2021, 03/15/2021, 02/15/2021 Lung Cancer Screening Completed 03/04/2015 Influenza Vaccine (FLU shot) Completed 10/25/2024 HPV (Gardasil) Vaccine Aged Out No lo [...] Visit Diagnoses Diagnosis Anemia- Primary Anemia, unspecified documented in this encounter Care Teams Technical Service Specialist Relationship Specialty Start Date End Date Eve Soni MD [address] [place] [address] [place] [address] PCP - General 05/31/09 documented as of this encounter
--- OUTSIDE RECORDS SUMMARY | 2025-01-11 20:12 | External Medical Summary ---
Author Name Unknown Address Unknown Organization K01:LABORATORY [facility] [place] - [address] [facility] [place] [address] Laboratory Report Ordering Provider Test Date Status ANAHY GOODE 12/28/2024 10:26:40 Final Observation Date Value Abnormality Reference (Units ) Status BUN 12/28/2024 10:26:40 46 Above high normal 6-20 (mg/dL) Final Creatinine 12/28/2024 10:26:40 1.3 Above high normal 0.6-1.2 (mg/dL) Final Glomerular filtration rate/1.73 sq M.predicted [Volume Rate/Area] in Serum, Plasma or Blood by Creatinine-based formula (CKD-EPI) 12/28/2024 10:26:40 57 Below low normal >=60 (mL/min) Final eGFR is calculated based on the CKD-EPI 2020 equation. Sodium 12/28/2024 10:26:40 140 135-146 (m mol/L) Final Potassium 12/28/2024 10:26:40 4.7 3.5-5.1 (m mol/L) Final Cl 12/28/2024 10:26:40 106 98-107 (mm ol/L) Final CO2 12/28/2024 10:26:40 20 Below low normal 22- 32 (mmol/L) Final Anion gap 12/28/2024 10:26:40 14 7-15 (mmol /L) Final Glucose 12/28/2024 10:26:40 43 Below lo wer panic limits 70-120 (mg/dL) Final Albumin 12/28/2024 10:26:40 3.3 Below low normal 3.8 -5.0 (g/dL) Final AST (Aspartate aminotransferase) 12/28/2024 10:26:40 33 10-50 (U/L) Fin al Alk Phos 12/28/2024 10:26:40 416 Above high normal 35 -130 (U/L) Final Bilirubin, Total 12/28/2024 10:26:40 0.4 <=1 .2 (mg/dL) Final Calcium 12/28/2024 10:26:40 8.7 8.4-10.2 ( mg/dL) Final Protein 12/28/2024 10:26:40 6.2 6.0-8.3 (g /dL) Final ALT (Alanine aminotransferase) 12/28/2024 10:26:40 18 10-50 (U/L) Jose Eduardo cardenas Performing Location LABORATORY [facility] [place] - [facility] [address] [facility] [address]. [facility] [address]
--- OUTSIDE RECORDS SUMMARY | 2025-01-11 20:12 | External Medical Summary | Summary of Care ---
Author Name Unknown Organization [facility] Address [address] [facility] [address] Phone [phone] Care Team Providers Care Materials Research Engineer Name Role Phone Eve Soni MD Primary Care Provider [phone] Encounter Details Date Type Department Care Team (Late st Contact Info) Description 11/30/2024 Orders Only Lab Mobile Phlebotomy [facility] [address] [place] [address] Eve Soni MD [address] [place] [address] [address] [place] [address] Idiopathic hypotension*; Vitamin D deficiency; Elevated WBC count Allergies No known active allergiesdocumented as of this encounter (statuses as of 11/30/2024) Medications metFORMIN HCl 500 MG Oral Tablet [...] as of this encounter (statuses as of 11/30/2024) Active Problems Problem Noted Date Diagnosed Date Visual distortions of shape and size 06/19/2023 documented as of this encounter (statuses as of 11/30/2024) Social History Tobacco Use Types Packs/Day Years [...] Care Team (Late st Contact Info) Description 11/30/2024 5:10 AM EST Laboratory Lab Mobile Phlebotomy [facility] [address] [facility] [place] [address] [place] [address] Arrived 01/04/2025 8:15 AM EDT Office Visit Ophthalmology, [facility] [address] [place] [address] Hernando Sun DO [address] [place] [address] Scheduled Orders Name Type Priority Associated Diagnoses Orde r Schedule ERYTHROCYTE SEDIMENTATION RATE (ESR) Lab Routine Idiopathic hypotension Vitamin D deficiency Elevated WBC count Expected: 11/30/2024, Expires: 11/30/2025 CRP (INFLAMMATORY MARKER) Lab Routine Idiopathic hypotension Vitamin D deficiency Elevated WBC count Expected: 11/30/2024, Expires: 11/30/2025 CBC Lab Routine Idiopathic hypotension Vitamin D deficiency Elevated WBC count Expected: 11/30/2024, Expires: 11/30/2025 Health Maintenance Due Date Last Done Comments [...] as of this encounter Visit Diagnoses Diagnosis Idiopathic hypotension- Primary Hypotension, unspecified Vitamin D deficiency Unspecified vitamin D deficiency Elevated WBC count Leukocytosis, unspecified documented in this encounter Care Teams Materials Research Engineer Relationship Specialty Start Date End Date Eve Soni MD [address] [place] [address] [place] [id number] PCP - General 05/31/09 documented as of this encounter
--- OUTSIDE RECORDS SUMMARY | 2025-01-11 20:12 | External Medical Summary ---
Author Name Unknown Address Unknown Organization K0G:[facility]ORY [facility] [address] - [address] [place] [address] Laboratory Report Ordering Provider Test Date Status ANAHY GOODE 11/27/2024 05:55:00 Final Observation Date Value Abnormality Reference (Units ) Status BUN 11/27/2024 05:55:00 38 Above high normal 6-20 (mg/dL) Final Creatinine 11/27/2024 05:55:00 1.3 Above high normal 0.6-1.2 (mg/dL) Final Glomerular filtration rate/1.73 sq M.predicted [Volume Rate/Area] in Serum, Plasma or Blood by Creatinine-based formula (CKD-EPI) 11/27/2024 05:55:00 60 >=60 (mL/min) Final eGFR is calculated based on the CKD-EPI 2020 equation. Sodium 11/27/2024 05:55:00 139 135-146 (m mol/L) Final Potassium 11/27/2024 05:55:00 4.5 3.5-5.1 (m mol/L) Final Cl 11/27/2024 05:55:00 105 98-107 (mm ol/L) Final CO2 11/27/2024 05:55:00 24 22-32 (mmo l/L) Final Anion gap 11/27/2024 05:55:00 10 7-15 (mmol /L) Final Glucose 11/27/2024 05:55:00 85 70-120 (mg /dL) Final Albumin 11/27/2024 05:55:00 3.0 Below low normal 3.8 -5.0 (g/dL) Final AST (Aspartate aminotransferase) 11/27/2024 05:55:00 28 10-50 (U/L) Fin al Alk Phos 11/27/2024 05:55:00 344 Above high normal 35 -130 (U/L) Final Bilirubin, Total 11/27/2024 05:55:00 1.1 <=1 .2 (mg/dL) Final Calcium 11/27/2024 05:55:00 8.3 Below low normal 8.4 -10.2 (mg/dL) Final Protein 11/27/2024 05:55:00 5.8 Below low normal 6.0 -8.3 (g/dL) Final ALT (Alanine aminotransferase) 11/27/2024 05:55:00 11 10-50 (U/L) Jose Eduardo cardenas Performing Location LABORATORY [place] [address] - [address] [facility] [address]
--- OUTSIDE RECORDS SUMMARY | 2025-01-11 20:12 | External Medical Summary | Summary of Care ---
Author Name Unknown Organization [facility] Address [address] [facility] [place] [address] Phone [phone] Care Team Providers Care Social Psychologist Name Role Phone Eve Soni MD Primary Care Provider [phone] [phone] Reason for Visit * Reason Comments Outpatient Testing Encounter Details Date Type Department Care Team (Late st Contact Info) Description 12/28/2024 10:20 AM EDT Laboratory Laboratory [address] [place] [id number] , Specimen Drop Off [address] [place] [address] LFT elevation Allergies No known active allergiesdocumented as of this encounter (statuses as of 12/28/2024) Medications metFORMIN HCl 500 MG Oral Tablet [...] as of this encounter (statuses as of 12/28/2024) Active Problems Problem Noted Date Diagnosed Date Visual distortions of shape and size 06/19/2023 documented as of this encounter (statuses as of 12/28/2024) Social History Tobacco Use Types Packs/Day Years [...] Care Team (Late st Contact Info) Description 01/04/2025 8:15 AM EDT Office Visit Ophthalmology, [facility] [address] [place] [address] Hernando Sun DO [address] [place] [address] Pending Results Name Type Priority Associated Diagnoses Date /Time COMPREHENSIVE METABOLIC PANEL Lab Routine LFT elevation 12/28/2024 10:26 AM EDT CBC Lab Routine LFT elevation 12/28/2024 10:26 AM EDT Health Maintenance Due Date Last Done Comments [...] as of this encounter Visit Diagnoses Diagnosis LFT elevation Other abnormal blood chemistry documented in this encounter Care Teams Social Psychologist Relationship Specialty Start Date End Date Eve Soni MD [address] [place] [address] [place] [address] PCP - General 05/31/09 documented as of this encounter
--- OUTSIDE RECORDS SUMMARY | 2025-01-11 20:12 | External Medical Summary ---
Author Name Unknown Address Unknown Organization [id number] - [address] [place] [address] Laboratory Report Ordering Provider Test Date Status ANAHY GOODE 12/07/2024 05:54:00 Final Observation Date Value Abnormality Reference (Units ) Status Nucleated erythrocytes/100 leukocytes [Ratio] in Blood by Automated count 12/07/2024 05:54:00 Final Performing Location [facility] 0 - [address] [place] [address]
--- OUTSIDE RECORDS SUMMARY | 2025-01-11 20:12 | External Medical Summary ---
Author Name Unknown Address Unknown Organization K0G:LABORATORY [place] 57-[address] - [address] [place] [address] Laboratory Report Ordering Provider Test Date Status ANAHY GOODE 12/07/2024 05:54:00 Final Observation Date Value Abnormality Reference (Units ) Status WBC, Total 12/07/2024 05:54:00 10.33 4.00-10.8 0 (K/uL) Final RBC 12/07/2024 05:54:00 3.12 4.50-5.25 (M/uL) Final Hemoglobin 12/07/2024 05:54:00 9.6 Below low normal 14 .0-16.8 (g/dL) Final HCT 12/07/2024 05:54:00 30.4 Below low normal 40. 0-48.4 (%) Final MCV 12/07/2024 05:54:00 97.4 82.0-99.5 (fL) Final MCH 12/07/2024 05:54:00 30.8 27.0-34.0 (pg) Final MCHC 12/07/2024 05:54:00 31.6 32.0-36.0 (g/dL) Final RDW 12/07/2024 05:54:00 14.4 11.5-15.5 (%) Final Platelets 12/07/2024 05:54:00 455 Above high normal 14 0-400 (K/uL) Final MPV 12/07/2024 05:54:00 8.6 6.6-11.1 ( fL) Final Performing [facility] - [address] [place] [address]
--- OUTSIDE RECORDS SUMMARY | 2025-01-11 20:12 | External Medical Summary | Summary of Care ---
Author Name Unknown Organization [facility] Address [address] [place] [facility] [address] Phone [phone] Care Team Providers Care Road Design Engineer Name Role Phone Eve Soni MD Primary Care Provider [phone] [phone] Encounter Details Date Type Department Care Team (Late st Contact Info) Description 12/14/2024 Orders Only Lab Mobile Phlebotomy [address] [place] [address] Eve Soni MD [address] [place] [address] [place] [address] Anemia, unspecified type*; Chronic kidney disease with symptom management only, unspecified CKD stage Allergies No known active allergiesdocumented as of this encounter (statuses as of 12/14/2024) Medications metFORMIN HCl 500 MG Oral Tablet [...] as of this encounter (statuses as of 12/14/2024) Active Problems Problem Noted Date Diagnosed Date Visual distortions of shape and size 06/19/2023 documented as of this encounter (statuses as of 12/14/2024) Social History Tobacco Use Types Packs/Day Years [...] Care Team (Late st Contact Info) Description 12/14/2024 5:20 AM EST Laboratory Lab Mobile Phlebotomy [address] [place] [address] [place] [address] 01/04/2025 8:15 AM EDT Office [facility], [facility] [place] [address] Hernando Sun, [address] [place] [address] Scheduled Orders Name Type Priority Associated Diagnoses Orde r Schedule BASIC METABOLIC PANEL Lab Routine Anemia, unspecified type Chronic kidney disease with symptom management only, unspecified CKD stage Expected: 12/14/2024, Expires: 12/14/2025 CBC Lab Routine Anemia, unspecified type Chronic kidney disease with symptom management only, unspecified CKD stage Expected: 12/14/2024, Expires: 12/14/2025 Health Maintenance Due Date Last Done Comments [...] Visit Diagnoses Diagnosis Anemia, unspecified type- Primary Chronic kidney disease with symptom management only, unspecified CKD stage documented in this encounter Care Teams Road Design Engineer Relationship Specialty Start Date End Date Eve Soni MD [address] [place] [address] [place] [address] PCP - General 05/31/09 documented as of this encounter
--- OUTSIDE RECORDS SUMMARY | 2025-01-11 20:12 | External Medical Summary ---
Author Name Unknown Address Unknown Organization K0G:LABORATORY [place] 57-[address] - [address] [place] [address] Laboratory Report Ordering Provider Test Date Status ANAHY GOODE 12/07/2024 05:54:00 Final Observation Date Value Abnormality Reference (Units ) Status SYNC LEUKOCYTES IN BLOOD BY AUTOMATED COUNT 12/07/2024 05:54:00 10.33 4.00-10.80 (K/uL) Final Segs 12/07/2024 05:54:00 61.3 40.0-75.0 (%) Final Lymphs % 12/07/2024 05:54:00 26.6 18.0-42.0 (%) Final Monos 12/07/2024 05:54:00 7.6 1.0-11.0 (%) Final Eosinophils 12/07/2024 05:54:00 3.9 0.0-6.0 (%) Final Basos 12/07/2024 05:54:00 0.6 0.0-2.0 (%) Final Absolute Segs 12/07/2024 05:54:00 6.33 1.80-7.70 (K/uL) Final Lymphs, absolute 12/07/2024 05:54:00 2.75 1.00-4.80 (K/ul) Final Monos, Abs 12/07/2024 05:54:00 0.79 0.00-1.10 (K/uL) Final Eos, Abs 12/07/2024 05:54:00 0.40 0.00-0.70 (K/uL) Final Basos, Abs 12/07/2024 05:54:00 0.06 0.00-0.20 (K/uL) Final Performing Location [facility] 0 - [address] [place] [address]
--- OUTSIDE RECORDS SUMMARY | 2025-01-11 20:12 | External Medical Summary ---
Author Name Unknown Address Unknown Organization K0G:[facility]ORY [place] 57-[address] - [address] [place] [address] Laboratory Report Ordering Provider Test Date Status ANAHY GOODE 11/27/2024 05:55:00 Final Observation Date Value Abnormality Reference (Units ) Status SYNC LEUKOCYTES IN BLOOD BY AUTOMATED COUNT 11/27/2024 05:55:00 9.91 4.00-10.80 (K/uL) Final Neutrophils/100 leukocytes in Blood by Manual count 11/27/2024 05:55:00 70.0 40.0-75.0 (%) Final Lymphocytes/100 leukocytes in Blood by Manual count 11/27/2024 05:55:00 21.0 18.0-42.0 (%) Final Monocytes/100 leukocytes in Blood by Manual count 11/27/2024 05:55:00 7.0 1.0-11.0 (%) Final Eosinophils/100 leukocytes in Blood by Manual count 11/27/2024 05:55:00 2.0 0.0-6.0 (%) Final Neutrophils [#/volume] in Blood by Manual count 11/27/2024 05:55:00 6.94 1.80-7.70 (K/uL) Final Lymphocytes [#/volume] in Blood by Manual count 11/27/2024 05:55:00 2.08 1.00-4.80 (K/uL) Final Monocytes [#/volume] in Blood by Manual count 11/27/2024 05:55:00 0.69 0.00-1.10 (K/uL) Final Eosinophils [#/volume] in Blood by Manual count 11/27/2024 05:55:00 0.20 0.00-0.70 (K/uL) Final Nucleated erythrocytes/100 leukocytes [Ratio] in Blood by Automated count 11/27/2024 05:55:00 Final Performing Location LAB[facility]ORY [place] [address] - [address] [place] [address]
--- OUTSIDE RECORDS SUMMARY | 2025-01-11 20:12 | External Medical Summary ---
Author Name Unknown Address Unknown Organization [id number]:[facility] [place] - [address] [place] [address] Laboratory Report Ordering Provider Test Date Status ANAHY GOODE 12/07/2024 05:54:00 Final Observation Date Value Abnormality Reference (Units ) Status Erythrocyte sedimentation rate by Photometric method 12/07/2024 05:54:00 14 <20 (mm/hour) Final Performing Location LAB[facility] - [address] [place] [address]
--- OUTSIDE RECORDS SUMMARY | 2025-01-11 20:12 | External Medical Summary ---
Author Name Unknown Address Unknown Organization [facility] [address] - [address] [place] [address] Laboratory Report Ordering Provider Test Date Status ANAHY GOODE 12/07/2024 05:54:00 Final Observation Date Value Abnormality Reference (Units ) Status BUN 12/07/2024 05:54:00 33 Above high normal 6-20 (mg/dL) Final Creatinine 12/07/2024 05:54:00 1.3 Above high normal 0.6-1.2 (mg/dL) Final Glomerular filtration rate/1.73 sq M.predicted [Volume Rate/Area] in Serum, Plasma or Blood by Creatinine-based formula (CKD-EPI) 12/07/2024 05:54:00 57 Below low normal >=60 (mL/min) Final eGFR is calculated based on the CKD-EPI 2020 equation. Sodium 12/07/2024 05:54:00 136 135-146 (m mol/L) Final Potassium 12/07/2024 05:54:00 4.6 3.5-5.1 (m mol/L) Final Cl 12/07/2024 05:54:00 105 98-107 (mm ol/L) Final CO2 12/07/2024 05:54:00 23 22-32 (mmo l/L) Final Anion gap 12/07/2024 05:54:00 8 7-15 (mmol /L) Final Glucose 12/07/2024 05:54:00 215 Above high normal 70 -120 (mg/dL) Final Albumin 12/07/2024 05:54:00 2.9 Below low normal 3.8 -5.0 (g/dL) Final AST (Aspartate aminotransferase) 12/07/2024 05:54:00 34 10-50 (U/L) Fin al Alk Phos 12/07/2024 05:54:00 384 Above high normal 35 -130 (U/L) Final Bilirubin, Total 12/07/2024 05:54:00 0.5 <=1 .2 (mg/dL) Final Calcium 12/07/2024 05:54:00 8.4 8.4-10.2 ( mg/dL) Final Protein 12/07/2024 05:54:00 5.6 Below low normal 6.0 -8.3 (g/dL) Final ALT (Alanine aminotransferase) 12/07/2024 05:54:00 19 10-50 (U/L) Jose Eduardo cardenas Performing Location LABORATORY [place] [address] - [address] [facility] [address]
--- OUTSIDE RECORDS SUMMARY | 2025-01-11 20:12 | External Medical Summary ---
Author Name Unknown Address Unknown Organization K01:LABORATORY [facility] [place] - [address] [facility] [address] [facility] [address] Laboratory Report Ordering Provider Test Date Status RUSSELANAHY ARMENDARIZ 01/04/2025 05:20:00 Final Observation Date Value Abnormality Reference (Units ) Status HbA1C 01/04/2025 05:20:00 6.3 Above high normal 4. 0-5.6 (%) Final The use of HbA1c to monitor glycemic status is based on normal hemoglobin and HbA composition. This test should not be used in patients with abnormal hemoglobin that affects the half life of the red blood cell or the in vivo glycation rates. Glucose, estimated average 01/04/2025 05:20:00 134 Above high normal <126 (mg/dL) Jose Eduardo cardenas Performing Location LABORATORY [facility] [place] - [address] [facility] [address] [facility] [address]
--- OUTSIDE RECORDS SUMMARY | 2025-01-11 20:12 | External Medical Summary | Summary of Care ---
Author Name Unknown Organization [facility] Address [address] [facility] [place] [address] Phone [phone] Care Team Providers Care Transfer Station Attendant Name Role Phone Eve Soni MD Primary Care Provider [phone] [phone] Encounter Details Date Type Department Care Team (Late st Contact Info) Description 11/24/2024 Population Health External Data Unspecified Department Allergies No known active allergiesdocumented as of this encounter (statuses as of 11/24/2024) Medications metFORMIN HCl 500 MG Oral Tablet [...] as of this encounter (statuses as of 11/24/2024) Active Problems Problem Noted Date Diagnosed Date Visual distortions of shape and size 06/19/2023 documented as of this encounter (statuses as of 11/24/2024) Social History Tobacco Use Types Packs/Day Years [...] 01/04/2025 8:15 AM EDT Office Visit Ophthalmology, [facility] [address] [place] [address] Hernando Sun DO [address] [place] [address] Health Maintenance Due Date Last Done Comments [...] filedocumented as of this encounter Care Teams Transfer Station Attendant Relationship Specialty Start Date End Date Eve Soni MD [address] [place], [place] [address] [place] [address] PCP - General 05/31/09 documented as of this encounter
--- OUTSIDE RECORDS SUMMARY | 2025-01-11 20:12 | External Medical Summary ---
Author Name Unknown Address Unknown Organization K0G:[facility]ORY [facility] [place] 57-[address] - [address] [place] [address] Laboratory Report Ordering Provider Test Date Status ANAHY GOODE 11/27/2024 05:55:00 Final Observation Date Value Abnormality Reference (Units ) Status WBC, Total 11/27/2024 05:55:00 9.91 4.00-10.8 0 (K/uL) Final RBC 11/27/2024 05:55:00 2.92 4.50-5.25 (M/uL) Final Hemoglobin 11/27/2024 05:55:00 9.3 Below low normal 14 .0-16.8 (g/dL) Final HCT 11/27/2024 05:55:00 28.3 Below low normal 40. 0-48.4 (%) Final MCV 11/27/2024 05:55:00 96.9 82.0-99.5 (fL) Final MCH 11/27/2024 05:55:00 31.8 27.0-34.0 (pg) Final MCHC 11/27/2024 05:55:00 32.9 32.0-36.0 (g/dL) Final RDW 11/27/2024 05:55:00 14.7 11.5-15.5 (%) Final Platelets 11/27/2024 05:55:00 325 140-400 (K /uL) Final MPV 11/27/2024 05:55:00 8.8 6.6-11.1 ( fL) Final Performing Location LAB[facility]ATORY [facility] [place] [address] - [address] [place] [address]
--- OUTSIDE RECORDS SUMMARY | 2025-01-11 20:12 | External Medical Summary | Summary of Care ---
Author Name Unknown Organization [facility] Address [address] [place] [address] Phone [phone] Care Team Providers Care Keypuncher Name Role Phone Eve Soni MD Primary Care Provider [phone] [phone] Encounter Details Date Type Department Care Team (Late st Contact Info) Description 01/04/2025 Orders Only Lab Mobile Phlebotomy [address] [place] [address] Eve Soni MD [address] [place] [address] [place] [address] DM type 2, not at goal (HCC)* Allergies No known active allergiesdocumented as of this encounter (statuses as of 01/04/2025) Medications metFORMIN HCl 500 MG Oral Tablet [...] as of this encounter (statuses as of 01/04/2025) Active Problems Problem Noted Date Diagnosed Date Visual distortions of shape and size 06/19/2023 documented as of this encounter (statuses as of 01/04/2025) Social History Tobacco Use Types Packs/Day Years [...] Team (Late st Contact Info) Description 01/04/2025 5:10 AM EDT Laboratory Lab Mobile Phlebotomy [address] [place] [address] [place] [address] Arrived 02/08/2025 9:15 AM EDT Office Visit Ophthalmology, [facility] [place] [address] [place] [address] Hernando Sun DO [address] [place] [address] Nurse Nikki Morton [address] [place] [address] Photographer Juliet Morton [address] [place] [address] Scheduled Orders Name Type Priority Associated Diagnoses Orde r Schedule BASIC METABOLIC PANEL Lab Routine DM type 2, not at goal (HCC) Expected: 01/04/2025, Expires: 01/04/2026 HEMOGLOBIN A1C Lab Routine DM type 2, not at goal (HCC) Expected: 01/04/2025, Expires: 01/04/2026 Health Maintenance Due Date Last Done Comments [...] as of this encounter Visit Diagnoses Diagnosis DM type 2, not at goal (HCC)- Primary Type II or unspecified type diabetes mellitus without mention of complication, not stated as uncontrolled documented in this encounter Care Teams Keypuncher Relationship Specialty Start Date End Date Eve Soni MD [address] [place] [address] [place] [address] PCP - General 05/31/09 documented as of this encounter
--- OUTSIDE RECORDS SUMMARY | 2025-01-11 20:12 | External Medical Summary ---
Author Name Unknown Address Unknown Organization K0G:[facility]ORY [place] [address] - [address] [place] [address] Laboratory Report Ordering Provider Test Date Status ANAHY GOODE 01/04/2025 05:20:00 Final Observation Date Value Abnormality Reference (Units ) Status BUN 01/04/2025 05:20:00 44 Above high normal 6-20 (mg/dL) Final Creatinine 01/04/2025 05:20:00 1.3 Above high normal 0.6-1.2 (mg/dL) Final Glomerular filtration rate/1.73 sq M.predicted [Volume Rate/Area] in Serum, Plasma or Blood by Creatinine-based formula (CKD-EPI) 01/04/2025 05:20:00 56 Below low normal >=60 (mL/min) Final eGFR is calculated based on the CKD-EPI 2020 equation. Sodium 01/04/2025 05:20:00 135 135-146 (m mol/L) Final Potassium 01/04/2025 05:20:00 4.7 3.5-5.1 (m mol/L) Final Cl 01/04/2025 05:20:00 105 98-107 (mm ol/L) Final CO2 01/04/2025 05:20:00 19 Below low normal 22- 32 (mmol/L) Final Anion gap 01/04/2025 05:20:00 11 7-15 (mmol /L) Final Glucose 01/04/2025 05:20:00 250 Above high normal 70 -120 (mg/dL) Final Calcium 01/04/2025 05:20:00 8.9 8.4-10.2 ( mg/dL) Final Performing Location LABORATORY [facility] [place] 57-1 0 - [address] [place] [address]
--- OUTSIDE RECORDS SUMMARY | 2025-01-11 20:12 | External Medical Summary ---
Author Name Unknown Address Unknown Organization [facility] 57[facility] - [address] [place] [address] Laboratory Report Ordering Provider Test Date Status ANAHY GOODE 12/14/2024 05:42:00 Final Observation Date Value Abnormality Reference (Units ) Status BUN 12/14/2024 05:42:00 44 Above high normal 6-20 (mg/dL) Final Creatinine 12/14/2024 05:42:00 1.4 Above high normal 0.6-1.2 (mg/dL) Final Glomerular filtration rate/1.73 sq M.predicted [Volume Rate/Area] in Serum, Plasma or Blood by Creatinine-based formula (CKD-EPI) 12/14/2024 05:42:00 54 Below low normal >=60 (mL/min) Final eGFR is calculated based on the CKD-EPI 2020 equation. Sodium 12/14/2024 05:42:00 139 135-146 (m mol/L) Final Potassium 12/14/2024 05:42:00 4.4 3.5-5.1 (m mol/L) Final Cl 12/14/2024 05:42:00 108 Above high normal 98 -107 (mmol/L) Final CO2 12/14/2024 05:42:00 22 22-32 (mmo l/L) Final Anion gap 12/14/2024 05:42:00 9 7-15 (mmol /L) Final Glucose 12/14/2024 05:42:00 88 70-120 (mg /dL) Final Calcium 12/14/2024 05:42:00 8.5 8.4-10.2 ( mg/dL) Final Performing Location LABORATORY [facility] [place] 57-[address] 0 - [address] [place] [address]
--- OUTSIDE RECORDS SUMMARY | 2025-01-11 20:12 | External Medical Summary ---
Author Name Unknown Address Unknown Organization K01:[facility]ATORY [facility] [place] - [address] [place] [address] Laboratory Report Ordering Provider Test Date Status RUSSELANAHY 11/30/2024 05:51:00 Final Observation Date Value Abnormality Reference (Units ) Status Erythrocyte sedimentation rate by Photometric method 11/30/2024 05:51:00 34 Above high normal <20 (mm/hour) Final Performing Location LABORATORY [facility] - [address] [place] [address]
--- OUTSIDE RECORDS SUMMARY | 2025-01-11 20:12 | External Medical Summary ---
Author Name Unknown Address Unknown Organization [facility] - [address] [place] [address] Laboratory Report Ordering Provider Test Date Status ANAHY GOODE 11/30/2024 05:51:00 Final Observation Date Value Abnormality Reference (Units ) Status WBC, Total 11/30/2024 05:51:00 13.56 Above high normal 4 .00-10.80 (K/uL) Final RBC 11/30/2024 05:51:00 2.55 4.50-5.25 (M/uL) Final Hemoglobin 11/30/2024 05:51:00 7.9 Below low normal 14 .0-16.8 (g/dL) Final HCT 11/30/2024 05:51:00 24.7 Below low normal 40. 0-48.4 (%) Final MCV 11/30/2024 05:51:00 96.9 82.0-99.5 (fL) Final MCH 11/30/2024 05:51:00 31.0 27.0-34.0 (pg) Final MCHC 11/30/2024 05:51:00 32.0 32.0-36.0 (g/dL) Final RDW 11/30/2024 05:51:00 14.4 11.5-15.5 (%) Final Platelets 11/30/2024 05:51:00 306 140-400 (K /uL) Final MPV 11/30/2024 05:51:00 8.9 6.6-11.1 ( fL) Final Performing Location LABORATORY [facility] [place] 57-1 0 - [address] [place] [address]
--- OUTSIDE RECORDS SUMMARY | 2025-01-11 20:12 | External Medical Summary ---
Author Name Unknown Address Unknown Organization K0G:LABORATORY [place] 57-[address] - [address] [place] [address] Laboratory Report Ordering Provider Test Date Status ANAHY GOODE 12/14/2024 05:42:00 Final Observation Date Value Abnormality Reference (Units ) Status WBC, Total 12/14/2024 05:42:00 9.61 4.00-10.8 0 (K/uL) Final RBC 12/14/2024 05:42:00 3.33 4.50-5.25 (M/uL) Final Hemoglobin 12/14/2024 05:42:00 10.3 Below low normal 14 .0-16.8 (g/dL) Final HCT 12/14/2024 05:42:00 32.2 Below low normal 40. 0-48.4 (%) Final MCV 12/14/2024 05:42:00 96.7 82.0-99.5 (fL) Final MCH 12/14/2024 05:42:00 30.9 27.0-34.0 (pg) Final MCHC 12/14/2024 05:42:00 32.0 32.0-36.0 (g/dL) Final RDW 12/14/2024 05:42:00 14.4 11.5-15.5 (%) Final Platelets 12/14/2024 05:42:00 410 Above high normal 14 0-400 (K/uL) Final MPV 12/14/2024 05:42:00 8.9 6.6-11.1 ( fL) Final Performing Location [facility] 0 - [address] [place] [address]
[2025-01-11 20:33] LABS: Base Excess VBG -12.6 mEq/L; HCO3 VBG 14 mmol/L; Oxygen Saturation VBG 62.5 %; PCO2 VBG 33 mmHg (38-50); PO2 VBG 37 mmHg; pH VBG 7.23 (7.36-7.41)
[2025-01-11] MEDS: LACTATED RINGER'S 500 ML IV ONE (21:30)
[2025-01-11] MEDS: PIPERACILLIN/TAZOBACTAM 4.5 GM/100 ML BAG IV SCH (21:32)
[2025-01-11] MEDS: HEPARIN SOD 5,000 UNIT/0.5 ML VIAL SQ SCH (21:33)
[2025-01-11] MEDS: LACTATED RINGER'S 1,000 ML IV SCH (21:34)
[2025-01-12 04:28] LABS: Albumin Level 2.9 gm/dl (3.4-5.0); BUN Creatinine Ratio 27.3 (10-20); Bilirubin Direct 0.2 mg/dl (0-0.2); Bilirubin,Total 0.8 mg/dl (0.2-1.0); Calcium 7.9 mg/dl (8.6-10.3); Creatinine Clr Calc Pharmacy 31.3 ml/min; Magnesium 1.3 mg/dl (1.7-2.4); Phosphorus 4.6 mg/dl (2.5-4.9); Potassium 4.4 mmol/L (3.5-5.1); Total Protein 5.9 gm/dl (6.0-8.3)
[2025-01-12] MEDS: CALCIUM GLUCONATE 1,000 MG/60 ML BAG IV SCH (04:55)
[2025-01-12] MEDS: MAGNESIUM SULFATE / D5W 1 GM/100 ML BAG IV SCH (04:56)
[2025-01-12 05:43] LABS: Hematocrit (blood only) 34.4 % (42.0-52.0); Hemoglobin 11.5 g/dl (14.0-18.0); Mean Corpuscular Hemoglobin 30.2 pg (25.0-34.0); Mean Corpuscular Hgb Conc 33.4 g/dL (32.0-36.0); Mean Corpuscular Volume 90.3 fL (80.0-100.0); Mean Platelet Volume 9.3 fL (9.4-12.4); Platelet Count 238 K/uL (130-400); RDW Coefficient of Variation 14.3 % (11.5-14.5); RDW Standard Deviation 47.5 fL (36.4-46.3); Red Blood Count 3.81 M/uL (4.70-6.10)
[2025-01-12 06:08] LABS: Basophils % (auto) 0.6 %; Echinocytes 1+; Eosinophils # (auto) 0.01 K/uL (0.00-0.50); Eosinophils % (auto) 0.1 %; Immature Granulocytes # (auto) 0.15 K/uL (0.01-0.20); Immature Granulocytes % (auto) 0.9 %; Lymphocytes # (auto) 1.47 K/uL (1.20-3.40); Lymphocytes % (auto) 8.7 %; Monocytes % (auto) 3.6 %; Neutrophils # (auto) 14.57 K/uL (1.40-6.50); Neutrophils % (auto) 86.1 %
--- NOTE | 2025-01-12 08:17 | Critical Care Progress Note ---
Date of Service January 12, 2025 Assessment & Plan (1) Septic shock: (2) Aspiration pneumonitis: (3) Lactic acidosis: (4) CARLO (acute kidney injury): Plan 74-year-old male with a past medical history of chronic hypotension on midodrine, type 2 diabetes mellitus, GERD, recent bilateral hip fracture status postrepair who presented from skilled nursing due to aspiration and hypoxemic respiratory failure Neurologic: Avoid sedating medications if able. Multimodal pain control given history of recent hip fracture last month. Pulmonary: Continue wean oxygen as able. Chest x-ray with concerning for findings of aspiration pneumonia. Continue hydrocortisone for severe. Continue vancomycin, Zosyn and azithromycin. Check urine Legionella antigen. If Legionella negative, will discontinue azithromycin. Respiratory viral panel negative. Cardiovascular: Patient with chronic hypotension. Continue midodrine. Continue Levophed peripherally. Hold all antihypertensives. Adequately resuscitated with crystalloids. Consider as needed albumin. Recent echo with normal LVEF. Gastrointestinal: NPO except for medications. Will need speech therapy consult. Mild chronic alkaline phosphatase elevation. Pantoprazole daily. Renal: Trinh with adequate urine output. Creatinine improving. Lactic acidosis resolving likely from sepsis and metformin use. Infectious disease: Blood and urine cultures pending. Respiratory viral panel negative. Urine Legionella antigen pending. Hematologic: Hemoglobin stable. A history of chronic iron deficiency anemia. Endocrine: TSH in October normal. Maintain euglycemia. Stress dose steroids given severe community-acquired pneumonia and septic shock. Lines and tubes: Peripheral IVs in place and Trinh to be placed. VTE prophylaxis: Heparin 5000 units twice daily CODE STATUS: DNR/DNI. Okay for pressors. Family at bedside: Son updated at bedside Disposition: ICU until pressors weaned off. I have personally spent 39 minutes of critical care time in the direct management of this patient. This is a life/limb threatening event. This includes time spent evaluating patient, direct bedside care, chart review, placing orders, interpretation of diagnostic studies, discussion with consultants, patient, and family members, as well as other required patient management activities. This time is exclusive of all separately billable procedures, and teaching time and separate from and in addition to any other critical care service time. Thank you for allowing us to participate in the care of this patient. Admission and Anticipated Discharge Date Admission Date: January 11, 2025 Subjective Patient alert and awake today. She remains on low-dose Levophed. Overall stable without any acute complaints. Patient does note some hip pain. Review of Systems Review of Systems: All systems reviewed & are unremarkable except as noted in HPI & below Physical Exam Physical Exam: Constitutional: Patient appears to be of their stated age. Frail and elderly. Eyes: Pupils are equal round and reactive to light. Conjunctivae are normal. Anicteric sclera. Ears nose, mouth and throat: Mallampati class 2. Normal posterior oropharynx. Uvula is midline. Neck: Trachea is midline. Visual inspection is normal. Respiratory: Coarse rhonchi bilaterally. Mild tachypnea. Cardiovascular: Tachycardic. Regular rhythm.. No murmurs. No edema. Gastrointestinal: Normal bowel sounds, soft, nontender and nondistended. No hepatosplenomegaly noted. Musculoskeletal: No cyanosis. Patient is able to move all extremities. Strength is 5 out of 5 in the upper and lower extremities. Skin: No rashes, warm dry and intact. Neurologic: No obvious focal neurological deficits seen. Psychiatric: Alert and oriented x3 with a euthymic affect. Results & Data Results & Data Vital Signs (Past 12 Hours) Vital Signs Temp Pulse Pulse Resp BP BP Pulse Ox 01/12/25 06:00 70 18 104/64 96 01/12/25 05:30 78 20 106/60 92 01/12/25 05:00 70 20 107/60 97 01/12/25 04:30 76 17 88/49 L 94 01/12/25 04:00 36.5 C 01/12/25 04:00 74 24 82/44 L 93 01/12/25 03:38 89/45 L 01/12/25 03:30 83 21 87/48 L 94 01/12/25 03:00 71 16 93/55 L 98 01/12/25 02:30 72 19 102/59 L 98 01/12/25 02:00 68 16 90/55 L 98 01/12/25 01:30 74 18 107/59 L 98 01/12/25 01:00 70 16 101/60 97 01/12/25 00:30 78 18 95/62 L 96 01/12/25 00:00 80 19 98/57 L 94 01/12/25 00:00 86 01/11/25 23:30 36.9 C 75 17 117/79 97 01/11/25 23:00 78 17 131/85 97 01/11/25 22:30 84 22 109/71 97 01/11/25 22:00 86 18 97/62 L 98 01/11/25 21:30 83 20 87/53 L 97 01/11/25 21:00 85 20 95/59 L 95 01/11/25 20:30 01/11/25 20:30 84 19 96/58 L 96 O2 Del Method O2 Flow Rate 01/12/25 06:00 Nasal Cannula 2 01/12/25 05:30 Nasal Cannula 2 01/12/25 05:00 Nasal Cannula 2 01/12/25 04:30 Nasal Cannula 2 01/12/25 04:00 01/12/25 04:00 Nasal Cannula 2 01/12/25 03:38 01/12/25 03:30 Nasal Cannula 2 01/12/25 03:00 Nasal Cannula 2 01/12/25 02:30 Nasal Cannula 2 01/12/25 02:00 Nasal Cannula 2 01/12/25 01:30 Nasal Cannula 2 01/12/25 01:00 Nasal Cannula 2 01/12/25 00:30 Nasal Cannula 2 01/12/25 00:00 Nasal Cannula 2 01/12/25 00:00 01/11/25 23:30 Nasal Cannula 2 01/11/25 23:00 Nasal Cannula 2 01/11/25 22:30 Nasal Cannula 2 01/11/25 22:00 Nasal Cannula 2 01/11/25 21:30 Nasal Cannula 2 01/11/25 21:00 Nasal Cannula 2 01/11/25 20:30 Nasal Cannula 2 01/11/25 20:30 Nasal Cannula 2 Coding Level of Care Code 77649 CRITICAL CARE 1ST 30-74M Diagnoses Septic shock A41.9; R65.21 Aspiration pneumonitis J69.0 Lactic acidosis E87.20 CARLO (acute kidney injury) N17.9
[2025-01-12] MEDS: PANTOprazole 40 MG/10 ML SYR IV SCH (08:52)
[2025-01-12] MEDS: VANCOMYCIN 750 MG in SODIUM CHLORIDE 0.9% 250 ML IV ONE (10:02)
--- NOTE | 2025-01-12 11:30 | Pharmacy Report ---
Pharmacy PK ABX Note - Date of Service January 12, 2025 - Assessment and Plan Assessment 74 year old M receiving vancomycin and zosyn for treatment of septic shock secondary to pulmonary source. Blood, urine cultures pending. MRSA nasal (+). (+) CARLO (SCr 2.02-->1.61). Day #2 of antimicrobial therapy. Plan Vancomycin * Loading dose: 1250 mg IV x 1 * Given CARLO on CKD, will dose by levels. Random level this AM (~18h level), 8.9mcg/mL. Below goal and safe to re-dose. * Vancomycin 750mg (~13mg/kg) IV X 1 today and repeat level in AM to guide further dosing. Pharmacy will continue to follow and will adjust dose/frequency as necessary. Thank you. Pharmacy has transitioned to AUC monitoring for vancomycin. AUC/THERON is the preferred PK/PD target and is associated with decreased risk of nephrotoxicity compared to traditional trough targets.
[2025-01-12] MEDS: MIDODRINE HCL 10 MG TAB PO SCH (11:35)
--- NOTE | 2025-01-12 13:42 | Hospitalist Progress Note ---
Date of Service January 12, 2025 Assessment & Plan (1) Lactic acidosis: (2) Severe sepsis: (3) Aspiration pneumonitis: (4) Diabetes mellitus type 2, controlled: (5) GERD (gastroesophageal reflux disease): Plan Patient is a 74 yr male with DM2, hypotension on chronic midodrine, GERD, recent bilateral hip fractures s/p repair, and other history as outlined below who presented to the ED today from [facility] with concern for aspiration and with hypoxia. Work-up in the ED revealed an elevated lactate at 8.5, procalcitonin 10.70, elevated creatinine at 2.02 (baseline appears around 1.3-1.4 on review of prior labs). Chest x-ray personally reviewed and shows bibasilar opacities, concerning for aspiration pneumonitis. Pt started on levophed for BP support in the ED with improvement in pressures. Sats appear stable on 15 L via NRB. Septic shock Aspiration pneumonitis Lactic/Metabolic Acidosis Hypoxia secondary to above H/O chronic hypotension on midodrine --CXR: Emphysema with chronic interstitial coarsening. Patchy bibasilar opacities are suspicious for an infectious or inflammatory pneumonitis. --Nasal MRSA positive --BioFire negative -- Blood culture pending --Urine culture pending --Wean off of Levophed as able Appreciate critical care input Continue vancomycin, Zosyn Also on IV hydrocortisone, midodrine Received IV fluids Supplemental oxygen as needed Aspiration precautions Speech therapy evaluated Acute kidney injury on CKD III Likely ATN Creatinine 2.0 >1.6 Monitor renal function Avoid nephrotoxic agents as able Hypomagnesemia Replete electrolytes as needed Insulin-requiring DM2 last A1c 6.3 on 01/04/25 -Hold Metformin - Continue insulin sliding scale - BSG ACHS GERD continue PPI therapy DVT Px: Heparin SQ Code status: DNR/DNI Disposition PT OT prior to discharge Admission and Anticipated Discharge Date Admission Date: January 11, 2025 Subjective Patient is seen and examined at bedside Still on Levophed at low-dose Discussed with test cell technician today Patient complains of bilateral foot pain Cough slowly improving Denies any dyspnea, chest pain, nausea, vomiting, abdominal pain Saturating well on 2 L supplemental oxygen Review of Systems Review of Systems: All systems reviewed & are unremarkable except as noted in Subjective Physical Exam Physical Exam: Physical Exam: Vitals signs as noted above General Appearance:Thin, frail, no apparent distress, elderly Head: normocephalic, Atraumatic Eyes: normal inspection, EOMI Neck: supple, Trachea midline Respiratory/Chest: Normal breath sounds, b/l rhonchi, No accessory muscle use Cardiovascular: S1, S2, No murmur Abdomen/GI:Soft, Non tender, Bowel sounds present Extremities/Musculoskeletal:normal inspection, no edema Neurologic/Psych:AAOX3, grossly no focal neurological deficits Skin: normal color, warm Results & Data Results & Data Vital Signs (Past 12 Hours) Vital Signs Temp Pulse Resp BP Pulse Ox O2 Del Method O2 Flow Rate 01/12/25 11:44 36.8 C 01/12/25 10:48 68 19 99 01/12/25 10:30 67 20 99 01/12/25 10:30 102/57 L 01/12/25 10:30 102/57 L 01/12/25 10:30 102/57 L 01/12/25 10:30 102/57 L 01/12/25 10:30 102/57 L 01/12/25 10:30 102/57 L 01/12/25 10:30 102/57 L 01/12/25 10:30 102/57 L 01/12/25 10:18 72 19 100 01/12/25 10:03 75 18 98 01/12/25 10:00 97/58 L 01/12/25 10:00 97/58 L 01/12/25 10:00 97/58 L 01/12/25 10:00 97/58 L 01/12/25 10:00 97/58 L 01/12/25 10:00 97/58 L 01/12/25 10:00 97/58 L 01/12/25 10:00 97/58 L 01/12/25 10:00 97/58 L 01/12/25 10:00 97/58 L 01/12/25 10:00 97/58 L 01/12/25 10:00 97/58 L 01/12/25 10:00 97/58 L 01/12/25 10:00 97/58 L 01/12/25 09:57 71 18 100 01/12/25 09:48 72 18 98 01/12/25 09:33 74 19 97 01/12/25 09:30 100/58 L 01/12/25 09:30 100/58 L 01/12/25 09:30 100/58 L 01/12/25 09:30 100/58 L 01/12/25 09:30 100/58 L 01/12/25 09:30 100/58 L 01/12/25 09:30 100/58 L 01/12/25 09:30 100/58 L 01/12/25 09:30 100/58 L 01/12/25 09:30 100/58 L 01/12/25 09:30 100/58 L 01/12/25 09:30 100/58 L 01/12/25 09:30 100/58 L 01/12/25 09:25 36.8 C 01/12/25 09:12 82 19 99 01/12/25 09:06 72 18 97 01/12/25 09:00 99/57 L 01/12/25 09:00 99/57 L 01/12/25 09:00 99/57 L 01/12/25 09:00 99/57 L 01/12/25 09:00 99/57 L 01/12/25 09:00 99/57 L 01/12/25 09:00 99/57 L 01/12/25 08:48 67 17 97 01/12/25 08:30 104/58 L 01/12/25 08:30 104/58 L 01/12/25 08:30 104/58 L 01/12/25 08:30 104/58 L 01/12/25 08:30 104/58 L 01/12/25 08:30 104/58 L 01/12/25 08:30 104/58 L 01/12/25 08:30 104/58 L 01/12/25 08:30 104/58 L 01/12/25 08:30 104/58 L 01/12/25 08:30 104/58 L 01/12/25 08:30 104/58 L 01/12/25 08:30 104/58 L 01/12/25 08:30 104/58 L 01/12/25 08:30 104/58 L 01/12/25 08:30 71 18 97 01/12/25 08:27 Nasal Cannula 2 01/12/25 08:15 73 18 95 01/12/25 08:03 67 18 96 01/12/25 08:00 100/58 L 01/12/25 08:00 100/58 L 01/12/25 08:00 100/58 L 01/12/25 08:00 100/58 L 01/12/25 08:00 100/58 L 01/12/25 08:00 100/58 L 01/12/25 08:00 100/58 L 01/12/25 08:00 100/58 L 01/12/25 08:00 100/58 L 01/12/25 08:00 100/58 L 01/12/25 08:00 100/58 L 01/12/25 08:00 100/58 L 01/12/25 08:00 100/58 L 01/12/25 08:00 100/58 L 01/12/25 08:00 100/58 L 01/12/25 07:42 71 17 95 Nasal Cannula 2 01/12/25 07:36 74 19 94 01/12/25 07:30 111/63 01/12/25 07:30 111/63 01/12/25 07:30 111/63 01/12/25 07:30 111/63 01/12/25 07:30 111/63 01/12/25 07:30 111/63 01/12/25 06:00 70 18 104/64 96 Nasal Cannula 2 01/12/25 05:30 78 20 106/60 92 Nasal Cannula 2 01/12/25 05:00 70 20 107/60 97 Nasal Cannula 2 01/12/25 04:30 76 17 88/49 L 94 Nasal Cannula 2 01/12/25 04:00 36.5 C 01/12/25 04:00 74 24 82/44 L 93 Nasal Cannula 2 01/12/25 03:38 89/45 L 01/12/25 03:30 83 21 87/48 L 94 Nasal Cannula 2 01/12/25 03:00 71 16 93/55 L 98 Nasal Cannula 2 01/12/25 02:30 72 19 102/59 L 98 Nasal Cannula 2 01/12/25 02:00 68 16 90/55 L 98 Nasal Cannula 2 Laboratory Results Short CBC 01/12/25 Range/Units 03:55 WBC 16.90 H (4.8-10.8) K/ul Hgb 11.5 L D (14.0-18.0) g/dl Hct 34.4 L (42.0-52.0) % Plt Count 238 (130-400) K/uL BMP 01/12/25 03:55 Sodium 139 Potassium 4.4 Chloride 110 H Carbon Dioxide 20 L BUN 44 H Creatinine 1.61 H D Glucose 152 H Calcium 7.9 L Liver Function 01/12/25 Range/Units 03:55 Total Bilirubin 0.8 (0.2-1.0) mg/dl Direct Bilirubin 0.2 (0-0.2) mg/dl AST 31 (13-39) U/L ALT 15 (7-52) U/L Alkaline Phosphatase 172 H (34-104) U/L Albumin 2.9 L (3.4-5.0) gm/dl Urine 01/11/25 Range/Units 16:05 Urine Color Yellow Urine Appearance Cloudy A (Clear) Urine pH 5.5 (4.5-7.5) Ur Specific [place] 1.014 (1.000-1.030) Urine Protein 2+ H (Negative) Urine Glucose (UA) Negative (Negative) (4) Diabetes mellitus type 2, controlled Diabetes mellitus complication detail: with polyneuropathy Diabetes mellitus complication status: with neurologic complications Diabetes mellitus keno terminal operator insulin use: with keno terminal operator use Qualified Code(s): E11.42 - Type 2 diabetes mellitus with diabetic polyneuropathy; Z79.4 - longterm (current) use of insulin (5) GERD (gastroesophageal reflux disease) Esophagitis presence: esophagitis presence not specified Qualified Code(s): K21.9 - Gastro-esophageal reflux disease without esophagitis
[2025-01-12] MEDS: AZITHROMYCIN 250 MG TAB PO SCH (16:20)
[2025-01-12] MEDS ORDERED: Nursing to Pharmacy Communication SCH (17:45)
[2025-01-12] MEDS: ALBUMIN 5% 250 ML IV ONE (19:14)
[2025-01-12] MEDS: INSULIN ASPART PER UNIT CHARGE SC SCH (19:49)
[2025-01-12] MEDS: GABAPENTIN 100 MG CAP PO SCH (19:58)
[2025-01-13 05:03] LABS: Basophils # (auto) 0.02 K/uL (0.00-0.20); Basophils % (auto) 0.2 %; Eosinophils # (auto) 0.01 K/uL (0.00-0.50); Eosinophils % (auto) 0.1 %; Hematocrit (blood only) 29.8 % (42.0-52.0); Hemoglobin 10.2 g/dl (14.0-18.0); Immature Granulocytes # (auto) 0.07 K/uL (0.01-0.20); Immature Granulocytes % (auto) 0.6 %; Lymphocytes # (auto) 1.31 K/uL (1.20-3.40); Mean Corpuscular Hemoglobin 30.4 pg (25.0-34.0); Mean Corpuscular Hgb Conc 34.2 g/dL (32.0-36.0); Mean Platelet Volume 9.1 fL (9.4-12.4); Monocytes # (auto) 0.45 K/uL (0.11-0.59); Monocytes % (auto) 3.8 %; Neutrophils % (auto) 84.3 %; Platelet Count 171 K/uL (130-400); RDW Coefficient of Variation 14.1 % (11.5-14.5); RDW Standard Deviation 45.9 fL (36.4-46.3); Red Blood Count 3.35 M/uL (4.70-6.10); White Blood Count 11.96 K/ul (4.8-10.8)
[2025-01-13 06:12] LABS: Albumin Level 2.7 gm/dl (3.4-5.0); BUN Creatinine Ratio 24.5 (10-20); Bilirubin Direct 0.2 mg/dl (0-0.2); Bilirubin,Total 0.6 mg/dl (0.2-1.0); Creatinine Clr Calc Pharmacy 33.2 ml/min; Magnesium 2.2 mg/dl (1.7-2.4); Phosphorus 3.8 mg/dl (2.5-4.9); Potassium 3.3 mmol/L (3.5-5.1); Total Protein 5.5 gm/dl (6.0-8.3)
[2025-01-13] MEDS: VANCOMYCIN HCL 1,000 MG/270 ML BAG IV SCH (08:51)
--- NOTE | 2025-01-13 10:51 | Critical Care Progress Note ---
Date of Service January 13, 2025 Assessment & Plan (1) Septic shock: (2) Aspiration pneumonitis: (3) Lactic acidosis: (4) CARLO (acute kidney injury): Plan 74-year-old male with a past medical history of chronic hypotension on midodrine, type 2 diabetes mellitus, GERD, recent bilateral hip fracture status postrepair who presented from detention due to aspiration and hypoxemic respiratory failure Neurologic: Avoid sedating medications if able. Multimodal pain control given history of recent hip fracture last month. Pulmonary: Continue wean oxygen as able. Chest x-ray with concerning for findings of aspiration pneumonia. Continue hydrocortisone for community-acquired pneumonia and can initiate wean after day 4 of 50 mg every 6 hours. Continue vancomycin, Zosyn for 7 days total. Continue azithromycin until Legionella negative. Respiratory viral panel negative. MRSA screen positive. Cardiovascular: Patient with chronic hypotension. Continue midodrine. Off of Levophed. recent echo with normal LVEF. Gastrointestinal: Speech therapy following the patient. Continue diet per their recommendations. Mild chronic alkaline phosphatase elevation. Pantoprazole daily. Renal: Trinh with adequate urine output. Creatinine improving, but plateaued at 1.63. Lactic acidosis resolving likely from sepsis and metformin use. Replace electrolytes as needed. Infectious disease: Blood cultures negative. Urine cultures pending with organisms identified. Respiratory viral panel negative. Urine Legionella antigen pending. Hematologic: Hemoglobin stable. A history of chronic iron deficiency anemia. Endocrine: TSH in October normal. Maintain euglycemia. Stress dose steroids given severe community-acquired pneumonia and septic shock. Lines and tubes: Peripheral IVs in place and Trinh to be placed. VTE prophylaxis: Heparin 5000 units twice daily CODE STATUS: DNR/DNI. Okay for pressors. Family at bedside: None readily available at bedside. Disposition: PCU Discussed on multidisciplinary rounds. Admission and Anticipated Discharge Date Admission Date: January 11, 2025 Subjective Patient much more awake and alert today. Eating his breakfast this morning. Off vasopressors since 3 AM last night. Review of Systems Review of Systems: All systems reviewed & are unremarkable except as noted in HPI & below Physical Exam Physical Exam: Constitutional: Patient appears to be of their stated age. Frail and elderly. Eyes: Pupils are equal round and reactive to light. Conjunctivae are normal. Anicteric sclera. Ears nose, mouth and throat: Mallampati class 2. Normal posterior oropharynx. Uvula is midline. Neck: Trachea is midline. Visual inspection is normal. Respiratory: Coarse rhonchi bilaterally. Tachypnea resolved. Cardiovascular: Tachycardic. Regular rhythm.. No murmurs. No edema. Gastrointestinal: Normal bowel sounds, soft, nontender and nondistended. No hepatosplenomegaly noted. Musculoskeletal: No cyanosis. Patient is able to move all extremities. Strength is 5 out of 5 in the upper and lower extremities. Skin: No rashes, warm dry and intact. Neurologic: No obvious focal neurological deficits seen. Psychiatric: Alert and oriented x3 with a euthymic affect. Results & Data Results & Data Vital Signs (Past 12 Hours) Vital Signs Temp Pulse Resp BP Pulse Ox O2 Del Method O2 Flow Rate 01/13/25 10:00 65 17 01/13/25 09:30 108/69 01/13/25 09:30 108/69 01/13/25 09:30 108/69 01/13/25 09:30 108/69 01/13/25 09:21 77 19 94 01/13/25 09:15 108/64 01/13/25 09:15 108/64 01/13/25 09:15 108/64 01/13/25 09:15 108/64 01/13/25 09:15 108/64 01/13/25 09:15 108/64 01/13/25 09:12 72 20 94 01/13/25 09:00 106/58 L 01/13/25 09:00 106/58 L 01/13/25 09:00 106/58 L 01/13/25 09:00 106/58 L 01/13/25 09:00 106/58 L 01/13/25 09:00 72 21 93 01/13/25 08:45 105/61 01/13/25 08:45 105/61 01/13/25 08:45 105/61 01/13/25 08:45 105/61 01/13/25 08:45 105/61 01/13/25 08:45 105/61 01/13/25 08:45 105/61 01/13/25 08:45 105/61 01/13/25 08:39 55 L 16 92 01/13/25 08:30 102/59 L 01/13/25 08:30 102/59 L 01/13/25 08:30 102/59 L 01/13/25 08:30 102/59 L 01/13/25 08:30 102/59 L 01/13/25 08:21 53 L 15 93 Nasal Cannula 1 01/13/25 08:15 63 17 92 01/13/25 08:15 111/59 L 01/13/25 08:15 111/59 L 01/13/25 08:15 111/59 L 01/13/25 08:15 111/59 L 01/13/25 08:15 111/59 L 01/13/25 08:14 36.7 C 01/13/25 08:03 57 L 16 93 01/13/25 08:00 97/56 L 01/13/25 08:00 97/56 L 01/13/25 08:00 97/56 L 01/13/25 08:00 97/56 L 01/13/25 08:00 97/56 L 01/13/25 08:00 97/56 L 01/13/25 08:00 97/56 L 01/13/25 08:00 97/56 L 01/13/25 08:00 97/56 L 01/13/25 07:38 Nasal Cannula 1 01/13/25 06:15 87/51 L 01/13/25 06:15 87/51 L 01/13/25 06:08 97/59 L 01/13/25 06:08 97/59 L 01/13/25 06:01 92/48 L 01/13/25 06:01 92/48 L 01/13/25 05:51 62 17 95 01/13/25 05:45 107/63 01/13/25 05:45 107/63 01/13/25 05:45 107/63 01/13/25 05:45 107/63 01/13/25 05:45 107/63 01/13/25 05:45 107/63 01/13/25 05:45 56 L 14 97 01/13/25 05:33 57 L 16 97 01/13/25 05:30 104/61 01/13/25 05:30 104/61 01/13/25 05:30 104/61 01/13/25 05:30 104/61 01/13/25 05:30 104/61 01/13/25 05:30 104/61 01/13/25 05:21 66 14 90 01/13/25 05:00 01/13/25 05:00 01/13/25 05:00 01/13/25 05:00 01/13/25 05:00 01/13/25 05:00 01/13/25 05:00 01/13/25 05:00 01/13/25 05:00 01/13/25 05:00 01/13/25 05:00 60 16 90 01/13/25 04:33 62 16 90 01/13/25 04:30 100/58 L 01/13/25 04:30 100/58 L 01/13/25 04:30 100/58 L 01/13/25 04:30 100/58 L 01/13/25 04:30 100/58 L 01/13/25 04:30 100/58 L 01/13/25 04:21 66 17 92 01/13/25 04:00 59 L 16 91 01/13/25 04:00 103/63 01/13/25 04:00 103/63 01/13/25 04:00 103/63 01/13/25 04:00 103/63 01/13/25 04:00 103/63 01/13/25 04:00 103/63 01/13/25 04:00 103/63 01/13/25 04:00 103/63 01/13/25 04:00 103/63 01/13/25 04:00 103/63 01/13/25 04:00 103/63 01/13/25 03:45 112/65 01/13/25 03:45 112/65 01/13/25 03:45 112/65 01/13/25 03:45 112/65 01/13/25 03:45 112/65 01/13/25 03:45 112/65 01/13/25 03:45 112/65 01/13/25 03:45 112/65 01/13/25 03:45 62 16 91 01/13/25 03:30 62 17 92 01/13/25 03:30 108/64 01/13/25 03:30 108/64 01/13/25 03:30 108/64 01/13/25 03:30 108/64 01/13/25 03:30 108/64 01/13/25 03:30 108/64 01/13/25 03:15 59 L 17 92 01/13/25 03:15 10101/13/25 03:15 10101/13/25 03:15 10101/13/25 03:15 01/13/25 03:15 01/13/25 03:15 01/13/25 03:15 10101/13/25 03:03 61 18 93 01/13/25 03:00 119/72 01/13/25 03:00 119/72 01/13/25 03:00 119/72 01/13/25 03:00 119/72 01/13/25 03:00 119/72 01/13/25 02:45 107/01/13/25 02:45 107/01/13/25 02:45 107/01/13/25 02:45 107/62 01/13/25 02:33 70 17 93 01/13/25 02:30 105/69 01/13/25 02:30 105/69 01/13/25 02:30 105/69 01/13/25 02:30 105/69 01/13/25 02:30 75 15 93 01/13/25 02:24 70 17 95 01/13/25 02:15 122/70 01/13/25 02:15 122/70 01/13/25 02:15 122/70 01/13/25 02:15 122/70 01/13/25 02:00 10701/13/25 02:00 10701/13/25 02:00 10701/13/25 02:00 10701/13/25 02:00 10701/13/25 02:00 107/01/13/25 02:00 10701/13/25 01:54 68 21 91 01/13/25 01:45 10201/13/25 01:45 102/01/13/25 01:45 10201/13/25 01:45 10201/13/25 01:45 10201/13/25 01:39 65 19 94 01/13/25 01:30 110/60 01/13/25 01:30 110/60 01/13/25 01:27 92 H 20 92 01/13/25 01:15 95/53 L 01/13/25 01:15 95/53 L 01/13/25 01:15 95/53 L 01/13/25 01:15 95/53 L 01/13/25 01:12 50 L 16 96 01/13/25 01:00 100/53 L 01/13/25 01:00 100/53 L 01/13/25 01:00 100/53 L 01/13/25 00:45 98/56 L 01/13/25 00:45 98/56 L 01/13/25 00:45 98/56 L 01/13/25 00:39 58 L 17 93 01/13/25 00:30 51 L 16 99 01/13/25 00:30 90/54 L 01/13/25 00:30 90/54 L 01/13/25 00:30 90/54 L 01/13/25 00:30 90/54 L 01/13/25 00:30 90/54 L 01/13/25 00:15 100/54 L 01/13/25 00:15 100/54 L 01/13/25 00:15 100/54 L 01/13/25 00:09 59 L 16 93 01/13/25 00:00 51 L 01/13/25 00:00 123/63 01/13/25 00:00 123/63 01/12/25 23:51 53 L 16 96 01/12/25 23:45 59 L 15 95 01/12/25 23:45 120/62 01/12/25 23:45 120/62 01/12/25 23:45 120/62 01/12/25 23:36 67 17 95 01/12/25 23:31 103/58 L 01/12/25 23:31 103/58 L 01/12/25 23:31 103/58 L 01/12/25 23:31 103/58 L 01/12/25 23:24 36.4 C L 01/12/25 23:15 113/65 01/12/25 23:06 52 L 16 95 01/12/25 23:03 52 L 15 95 01/12/25 23:00 106/65 01/12/25 23:00 106/65 01/12/25 23:00 106/65 01/12/25 22:54 49 L 15 96 01/12/25 22:48 49 L 17 95 Coding Level of Care Code 48015 SUB INP/OBS CARE 235MIN Diagnoses Septic shock A41.9; R65.21 Aspiration pneumonitis J69.0 Lactic acidosis E87.20 CARLO (acute kidney injury) N17.9
[2025-01-13] MEDS: POTASSIUM CHLORIDE CRTAB 20 MEQ TABCR PO ONE (11:03)
--- NOTE | 2025-01-13 11:09 | Pharmacy Report ---
Pharmacy PK ABX Note - Date of Service January 13, 2025 - Assessment and Plan Assessment 01/13: Day #3 vancomycin/zosyn for CAP. Blood cultures (-). Urine culture (+) shila. Renal function stable/baseline. 01/12: 74 year old M receiving vancomycin and zosyn for treatment of septic shock secondary to pulmonary source. Blood, urine cultures pending. MRSA nasal (+). (+) CARLO (SCr 2.02-->1.61). Plan Vancomycin * 1250mg IV X 1 dose on 01/11, 750mg IV X 1 on 01/12 AM. * Random level this AM (~19h level), 10.5mcg/mL which is therapeutic and safe to re-dose. * Will schedule 1gm IV q24h at this time given SCr back to baseline. Predicted to achieve ssAUC 546mg/L.hr. Plan for 7 day course. * Repeat level 4 AM (or sooner if renal function worsens) Pharmacy will continue to follow and will adjust dose/frequency as necessary. Thank you. Pharmacy has transitioned to AUC monitoring for vancomycin. AUC/THERON is the preferred PK/PD target and is associated with decreased risk of nephrotoxicity compared to traditional trough targets.
[2025-01-13] MEDS: LANTUS PER UNIT CHARGE SC SCH (12:07)
--- NOTE | 2025-01-13 16:00 | Hospitalist Progress Note ---
Date of Service January 13, 2025 Assessment & Plan (1) Lactic acidosis: (2) Severe sepsis: (3) Aspiration pneumonitis: (4) Diabetes mellitus type 2, controlled: (5) GERD (gastroesophageal reflux disease): Plan Patient is a 74 yr male with DM2, hypotension on chronic midodrine, GERD, recent bilateral hip fractures s/p repair, and other history as outlined below who presented to the ED today from [facility] with concern for aspiration and with hypoxia. Work-up in the ED revealed an elevated lactate at 8.5, procalcitonin 10.70, elevated creatinine at 2.02 (baseline appears around 1.3-1.4 on review of prior labs). Chest x-ray personally reviewed and shows bibasilar opacities, concerning for aspiration pneumonitis. Pt started on levophed for BP support in the ED with improvement in pressures. Sats appear stable on 15 L via NRB. Septic shock Aspiration pneumonitis Lactic/Metabolic Acidosis Hypoxia secondary to above H/O chronic hypotension on midodrine --CXR: Emphysema with chronic interstitial coarsening. Patchy bibasilar opacities are suspicious for an infectious or inflammatory pneumonitis. --Nasal MRSA positive --BioFire negative -- Blood culture negative to date --Urine culture Tere --Weaned off of Levophed Appreciate critical care input Continue vancomycin, Zosyn Also on IV hydrocortisone, midodrine Received IV fluids Supplemental oxygen as needed Aspiration precautions Speech therapy eval Saturating well on 1 L supplemental oxygen Titrate IV hydrocortisone as able Acute kidney injury on CKD III Likely ATN Creatinine 2.0 >1.6 Monitor renal function Avoid nephrotoxic agents as able Hypomagnesemia Hypokalemia Replete electrolytes as needed Insulin-requiring DM2 last A1c 6.3 on 01/04/25 -Hold Metformin - Continue insulin sliding scale - BSG ACHS GERD continue PPI therapy DVT Px: Heparin SQ Code status: DNR/DNI Disposition PT OT prior to discharge Admission and Anticipated Discharge Date Admission Date: January 11, 2025 Subjective Patient is seen and examined at bedside Noted to have some cough with food intake which she states is chronic Off Levophed today Less cough today No other complaints Denies any dyspnea, chest pain, nausea, vomiting, abdominal pain Saturating well on 1 L supplemental oxygen Review of Systems Review of Systems: All systems reviewed & are unremarkable except as noted in Subjective Physical Exam Physical Exam: Physical Exam: Vitals signs as noted above General Appearance:Thin, frail, no apparent distress, elderly Head: normocephalic, Atraumatic Eyes: normal inspection, EOMI Neck: supple, Trachea midline Respiratory/Chest: Normal breath sounds, b/l rhonchi, No accessory muscle use Cardiovascular: S1, S2, No murmur Abdomen/GI:Soft, Non tender, Bowel sounds present Extremities/Musculoskeletal:normal inspection, no edema Neurologic/Psych:AAOX3, grossly no focal neurological deficits Skin: normal color, warm Results & Data Results & Data Vital Signs (Past 12 Hours) Vital Signs Temp Pulse Resp BP Pulse Ox O2 Del Method O2 Flow Rate 01/13/25 14:03 58 L 14 94 01/13/25 13:21 64 19 94 Nasal Cannula 1 01/13/25 13:00 115/55 L 01/13/25 13:00 115/55 L 01/13/25 13:00 115/55 L 01/13/25 13:00 115/55 L 01/13/25 13:00 115/55 L 01/13/25 13:00 115/55 L 01/13/25 13:00 115/55 L 01/13/25 13:00 115/55 L 01/13/25 13:00 115/55 L 01/13/25 13:00 115/55 L 01/13/25 13:00 115/55 L 01/13/25 13:00 115/55 L 01/13/25 13:00 115/55 L 01/13/25 13:00 115/55 L 01/13/25 13:00 115/55 L 01/13/25 13:00 115/55 L 01/13/25 12:42 51 L 22 90 01/13/25 12:00 123/64 01/13/25 12:00 123/64 01/13/25 12:00 123/64 01/13/25 12:00 123/64 01/13/25 12:00 123/64 01/13/25 12:00 123/64 01/13/25 12:00 123/64 01/13/25 12:00 123/64 01/13/25 12:00 123/64 01/13/25 12:00 123/64 01/13/25 12:00 123/64 01/13/25 12:00 123/64 01/13/25 12:00 123/64 01/13/25 12:00 123/64 01/13/25 12:00 123/64 01/13/25 12:00 123/64 01/13/25 12:00 123/64 01/13/25 12:00 60 18 93 01/13/25 11:03 54 L 18 96 01/13/25 11:00 118/70 01/13/25 11:00 118/70 01/13/25 11:00 118/70 01/13/25 11:00 118/70 01/13/25 11:00 118/70 01/13/25 11:00 118/70 01/13/25 11:00 118/70 01/13/25 11:00 118/70 01/13/25 11:00 118/70 01/13/25 11:00 118/70 01/13/25 11:00 118/70 01/13/25 11:00 118/70 01/13/25 10:00 65 17 01/13/25 09:30 108/69 01/13/25 09:30 108/69 01/13/25 09:30 108/69 01/13/25 09:30 108/69 01/13/25 09:21 77 19 94 01/13/25 09:15 108/64 01/13/25 09:15 108/64 01/13/25 09:15 108/64 01/13/25 09:15 108/64 01/13/25 09:15 108/64 01/13/25 09:15 108/64 01/13/25 09:12 72 20 94 01/13/25 09:00 106/58 L 01/13/25 09:00 106/58 L 01/13/25 09:00 106/58 L 01/13/25 09:00 106/58 L 01/13/25 09:00 106/58 L 01/13/25 09:00 72 21 93 01/13/25 08:45 105/61 01/13/25 08:45 105/61 01/13/25 08:45 105/61 01/13/25 08:45 105/61 01/13/25 08:45 105/61 01/13/25 08:45 105/61 01/13/25 08:45 105/61 01/13/25 08:45 105/61 01/13/25 08:39 55 L 16 92 01/13/25 08:30 102/59 L 01/13/25 08:30 102/59 L 01/13/25 08:30 102/59 L 01/13/25 08:30 102/59 L 01/13/25 08:30 102/59 L 01/13/25 08:21 53 L 15 93 Nasal Cannula 1 01/13/25 08:15 63 17 92 01/13/25 08:15 111/59 L 01/13/25 08:15 111/59 L 01/13/25 08:15 111/59 L 01/13/25 08:15 111/59 L 01/13/25 08:15 111/59 L 01/13/25 08:14 36.7 C 01/13/25 08:03 57 L 16 93 01/13/25 08:00 97/56 L 01/13/25 08:00 97/56 L 01/13/25 08:00 97/56 L 01/13/25 08:00 97/56 L 01/13/25 08:00 97/56 L 01/13/25 08:00 97/56 L 01/13/25 08:00 97/56 L 01/13/25 08:00 97/56 L 01/13/25 08:00 97/56 L 01/13/25 07:38 Nasal Cannula 1 01/13/25 06:15 87/51 L 01/13/25 06:15 87/51 L 01/13/25 06:08 97/59 L 01/13/25 06:08 97/59 L 01/13/25 06:01 92/48 L 01/13/25 06:01 92/48 L 01/13/25 05:51 62 17 95 01/13/25 05:45 107/63 01/13/25 05:45 107/63 01/13/25 05:45 107/63 01/13/25 05:45 107/63 01/13/25 05:45 107/63 01/13/25 05:45 107/63 01/13/25 05:45 56 L 14 97 01/13/25 05:33 57 L 16 97 01/13/25 05:30 104/61 04/02/25 05:30 104/61 01/13/25 05:30 104/01/13/25 05:30 104/61 01/13/25 05:30 10401/13/25 05:30 10401/13/25 05:21 66 14 90 01/13/25 05:00 01/13/25 05:00 01/13/25 05:00 01/13/25 05:00 01/13/25 05:00 01/13/25 05:00 01/13/25 05:00 01/13/25 05:00 01/13/25 05:00 01/13/25 05:00 01/13/25 05:00 60 16 90 01/13/25 04:33 62 16 90 01/13/25 04:30 100/58 L 01/13/25 04:30 100/58 L 01/13/25 04:30 100/58 L 01/13/25 04:30 100/58 L 01/13/25 04:30 100/58 L 01/13/25 04:30 100/58 L 01/13/25 04:21 66 17 92 01/13/25 04:00 59 L 16 91 01/13/25 04:00 01/13/25 04:00 01/13/25 04:00 01/13/25 04:00 01/13/25 04:00 01/13/25 04:00 01/13/25 04:00 01/13/25 04:00 01/13/25 04:00 01/13/25 04:00 01/13/25 04:00 (4) Diabetes mellitus type 2, controlled 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
[2025-01-14 04:43] LABS: Basophils # (auto) 0.02 K/uL (0.00-0.20); Basophils % (auto) 0.2 %; Hematocrit (blood only) 31.5 % (42.0-52.0); Hemoglobin 10.6 g/dl (14.0-18.0); Immature Granulocytes # (auto) 0.16 K/uL (0.01-0.20); Immature Granulocytes % (auto) 1.3 %; Lymphocytes # (auto) 1.48 K/uL (1.20-3.40); Lymphocytes % (auto) 12.4 %; Mean Corpuscular Hemoglobin 30.1 pg (25.0-34.0); Mean Corpuscular Hgb Conc 33.7 g/dL (32.0-36.0); Mean Corpuscular Volume 89.5 fL (80.0-100.0); Mean Platelet Volume 9.5 fL (9.4-12.4); Monocytes # (auto) 0.32 K/uL (0.11-0.59); Monocytes % (auto) 2.7 %; Neutrophils % (auto) 83.4 %; Platelet Count 193 K/uL (130-400); RDW Coefficient of Variation 14.2 % (11.5-14.5); RDW Standard Deviation 46.3 fL (36.4-46.3); Red Blood Count 3.52 M/uL (4.70-6.10); White Blood Count 11.98 K/ul (4.8-10.8)
[2025-01-14 04:58] LABS: Albumin Level 2.8 gm/dl (3.4-5.0); BUN Creatinine Ratio 25.4 (10-20); Bilirubin Direct 0.1 mg/dl (0-0.2); Bilirubin,Total 0.5 mg/dl (0.2-1.0); Calcium 7.9 mg/dl (8.6-10.3); Creatinine Clr Calc Pharmacy 32.3 ml/min; Magnesium 2.1 mg/dl (1.7-2.4); Phosphorus 3.5 mg/dl (2.5-4.9); Potassium 3.3 mmol/L (3.5-5.1); Total Protein 5.4 gm/dl (6.0-8.3)
[2025-01-14] MEDS: POTASSIUM CHLORIDE CRTAB 20 MEQ TABCR PO ONE (10:10)
--- NOTE | 2025-01-14 15:33 | Hospitalist Progress Note ---
Date of Service January 14, 2025 Assessment & Plan (1) Lactic acidosis: (2) Severe sepsis: (3) Aspiration pneumonitis: (4) Diabetes mellitus type 2, controlled: (5) GERD (gastroesophageal reflux disease): Plan Patient is a 74 yr male with DM2, hypotension on chronic midodrine, GERD, recent bilateral hip fractures s/p repair, and other history as outlined below who presented to the ED today from [facility] [place] with concern for aspiration and with hypoxia. Work-up in the ED revealed an elevated lactate at 8.5, procalcitonin 10.70, elevated creatinine at 2.02 (baseline appears around 1.3-1.4 on review of prior labs). Chest x-ray personally reviewed and shows bibasilar opacities, concerning for aspiration pneumonitis. Pt started on levophed for BP support in the ED with improvement in pressures. Sats appear stable on 15 L via NRB. Septic shock Aspiration pneumonitis Lactic/Metabolic Acidosis Hypoxia secondary to above H/O chronic hypotension on midodrine --CXR: Emphysema with chronic interstitial coarsening. Patchy bibasilar opacities are suspicious for an infectious or inflammatory pneumonitis. --Nasal MRSA positive --BioFire negative -- Blood culture negative to date --Urine culture Tere --Weaned off of Levophed Appreciate critical care input Continue vancomycin, Zosyn Also on IV hydrocortisone, midodrine Received IV fluids Weaned off of supplemental oxygen Aspiration precautions Speech therapy eval Titrate IV hydrocortisone to oral prednisone as able Will request PT OT evaluation Blood pressure stable off pressors Acute kidney injury on CKD III Likely ATN Creatinine 2.0 >1.7 Monitor renal function Avoid nephrotoxic agents as able Hypomagnesemia Hypokalemia Replete electrolytes as needed Sinus bradycardia 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 Asymptomatic Avoid AV daniel blocking agents Consider evaluation with by cardiology as outpatient Insulin-requiring DM2 last A1c 6.3 on 01/04/25 -Hold Metformin - Continue insulin sliding scale - BSG ACHS GERD continue PPI therapy DVT Px: Heparin SQ Code status: DNR/DNI Disposition PT OT prior to discharge Admission and Anticipated Discharge Date Admission Date: January 11, 2025 Subjective Patient is seen and examined at bedside Seem to be tolerating current diet Offers no new complaints Eager to get discharged Noted bradycardia while patient is asleep Denies any significant cough Also denies any dyspnea, chest pain, nausea, vomiting, abdominal pain Saturating well on room air Review of Systems Review of Systems: All systems reviewed & are unremarkable except as noted in Subjective Physical Exam Physical Exam: Physical Exam: Vitals signs as noted above General Appearance:Thin, frail, no apparent distress, elderly Head: normocephalic, Atraumatic Eyes: normal inspection, EOMI Neck: supple, Trachea midline Respiratory/Chest: Normal breath sounds, scattered rhonchi, No accessory muscle use Cardiovascular: S1, S2, No murmur Abdomen/GI:Soft, Non tender, Bowel sounds present Extremities/Musculoskeletal:normal inspection, no edema Neurologic/Psych:AAOX3, grossly no focal neurological deficits Skin: normal color, warm Results & Data Results & Data Vital Signs (Past 12 Hours) Vital Signs Temp Pulse Pulse Resp BP BP Pulse Ox 01/14/25 15:23 41 L 01/14/25 12:00 36.4 C L 60 14 104/57 L 95 01/14/25 07:24 01/14/25 07:22 49 L 01/14/25 07:14 36.4 C L 01/14/25 07:08 116/67 01/14/25 07:03 51 L 12 90 O2 Del Method 01/14/25 15:23 01/14/25 12:00 Room Air 01/14/25 07:24 Room Air 01/14/25 07:22 01/14/25 07:14 01/14/25 07:08 01/14/25 07:03 Room Air Laboratory Results Short CBC 01/14/25 Range/Units 04:03 WBC 11.98 H (4.8-10.8) K/ul Hgb 10.6 L (14.0-18.0) g/dl Hct 31.5 L (42.0-52.0) % Plt Count 193 (130-400) K/uL BMP 01/14/25 04:03 Sodium 137 Potassium 3.3 L Chloride 108 H Carbon Dioxide 22 BUN 44 H Creatinine 1.73 H Glucose 282 H Calcium 7.9 L Liver Function 01/14/25 Range/Units 04:03 Total Bilirubin 0.5 (0.2-1.0) mg/dl Direct Bilirubin 0.1 (0-0.2) mg/dl AST 31 (13-39) U/L ALT 18 (7-52) U/L Alkaline Phosphatase 204 H (34-104) U/L Albumin 2.8 L (3.4-5.0) gm/dl (4) Diabetes mellitus type 2, controlled 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
[2025-01-15] MEDS: HYDROCORTISONE SOD 25 MG in SYRINGE 0 ML IV SCH ×2 (06:07→13:32)
[2025-01-15] MEDS: VANCOMYCIN LEVEL ONE (06:45)
--- NOTE | 2025-01-15 08:00 | Pharmacy Report ---
Pharmacy PK ABX Note - Date of Service January 15, 2025 - Assessment and Plan Assessment 01/15: Day # 5 vancomycin/Zosyn for pulmonary coverage. SCr trending up to 2mg/dL today. 01/13: Day #3 vancomycin/zosyn for CAP. Blood cultures (-). Urine culture (+) shila. Renal function stable/baseline. 01/12: 74 year old M receiving vancomycin and zosyn for treatment of septic shock secondary to pulmonary source. Blood, urine cultures pending. MRSA nasal (+). (+) CARLO (SCr 2.02-->1.61). Plan Vancomycin * Current regimen: 1gm IV q24h * Trough level this AM (~22h level), 14mcg/mL. Predicted to achieve ssAUC 557mg/L.hr - therapeutic. * Continue vancomycin 1gm IV q24h through 01/18 for planned 7d course * Will obtain a repeat level this weekend if renal function worsens Pharmacy will continue to follow and will adjust dose/frequency as necessary. Thank you. Pharmacy has transitioned to AUC monitoring for vancomycin. AUC/THERON is the preferred PK/PD target and is associated with decreased risk of nephrotoxicity compared to traditional trough targets.
[2025-01-15] MEDS: POTASSIUM CHLORIDE CRTAB 20 MEQ TABCR PO ONE (09:39)
[2025-01-15] MEDS: THIAMINE HCL 100 MG TAB PO SCH (09:40)
[2025-01-15] MEDS: SODIUM CHLORIDE 0.9% 1,000 ML IV ONE (09:56)
[2025-01-15] MEDS: POTASSIUM CHLORIDE / WTR 10 MEQ/100 ML PLCT IV SCH (09:56)
[2025-01-15] MEDS: MAGNESIUM CHLORIDE W/CALCIUM 64MG DELAYED REL TAB PO SCH (09:57)
[2025-01-15] MEDS: PANTOprazole 40 MG TAB PO SCH (10:11)
[2025-01-15] MEDS: LINEZOLID 600 MG TAB PO SCH (10:11)
[2025-01-15] MEDS: ADVANCED PROBIOTIC 625 MG CAPSULE PO SCH (13:26)
[2025-01-15] MEDS: MIDODRINE HCL 2.5 MG TAB PO SCH (13:45)
--- NOTE | 2025-01-15 16:24 | Hospitalist Progress Note ---
Date of Service January 15, 2025 Assessment & Plan (1) Lactic acidosis: (2) Severe sepsis: (3) Aspiration pneumonitis: (4) Diabetes mellitus type 2, controlled: (5) GERD (gastroesophageal reflux disease): Plan Patient is a 74 yr male with DM2, hypotension on chronic midodrine, GERD, recent bilateral hip fractures s/p repair, and other history as outlined below who presented to the ED today from [facility] with concern for aspiration and with hypoxia. Work-up in the ED revealed an elevated lactate at 8.5, procalcitonin 10.70, elevated creatinine at 2.02 (baseline appears around 1.3-1.4 on review of prior labs). Chest x-ray personally reviewed and shows bibasilar opacities, concerning for aspiration pneumonitis. Pt started on levophed for BP support in the ED with improvement in pressures. Sats appear stable on 15 L via NRB. Septic shock Aspiration pneumonitis Lactic/Metabolic Acidosis Hypoxia secondary to above H/O chronic hypotension on midodrine --CXR: Emphysema with chronic interstitial coarsening. Patchy bibasilar opacities are suspicious for an infectious or inflammatory pneumonitis. --Nasal MRSA positive --BioFire negative -- Blood culture negative to date --Urine culture Tere --Weaned off of Levophed Appreciate critical care input Continue vancomycin, Zosyn> transition to> Zyvox,Zosyn Also on IV hydrocortisone, midodrine Received IV fluids Weaned off of supplemental oxygen Aspiration precautions Speech therapy eval Titrate IV hydrocortisone to oral prednisone tomorrow Decrease midodrine back to 5 mg 3 times daily home dose PT OT prior to discharge Acute kidney injury on CKD III Likely ATN Creatinine 2.0 Monitor renal function Avoid nephrotoxic agents as able Will give gentle IV fluids today Hypomagnesemia Hypokalemia Replete electrolytes as needed Sinus bradycardia 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 Asymptomatic Avoid AV daniel blocking agents Consider evaluation with by cardiology as outpatient Insulin-requiring DM2 last A1c 6.3 on 01/04/25 -Hold Metformin - Continue insulin sliding scale - BSG ACHS GERD continue PPI therapy DVT Px: Heparin SQ Code status: DNR/DNI Disposition PT OT prior to discharge Admission and Anticipated Discharge Date Admission Date: January 11, 2025 Subjective Patient is seen and examined at bedside No new complaints today Reports having IV infiltration Eager to get discharged Cough improved Denies any dyspnea, chest pain, nausea, vomiting, abdominal pain Review of Systems Review of Systems: All systems reviewed & are unremarkable except as noted in Subjective Physical Exam Physical Exam: Physical Exam: Vitals signs as noted above General Appearance:Thin, frail, no apparent distress, elderly Head: normocephalic, Atraumatic Eyes: normal inspection, EOMI Neck: supple, Trachea midline Respiratory/Chest: Normal breath sounds, CTA, No accessory muscle use Cardiovascular: S1, S2, No murmur, bradycardia Abdomen/GI:Soft, Non tender, Bowel sounds present Extremities/Musculoskeletal:normal inspection, no edema Neurologic/Psych:AAOX3, grossly no focal neurological deficits Skin: normal color, warm Results & Data Results & Data Vital Signs (Past 12 Hours) Vital Signs Temp Pulse Pulse Pulse Resp BP BP 01/15/25 15:03 36.2 C L 44 L 18 120/70 01/15/25 14:06 45 L 01/15/25 12:15 36.3 C L 46 L 18 125/65 01/15/25 07:49 36.3 C L 50 L 16 116/74 01/15/25 06:55 49 L 01/15/25 04:25 01/15/25 04:25 36.6 C Pulse Ox O2 Del Method 01/15/25 15:03 95 Room Air 01/15/25 14:06 01/15/25 12:15 97 Room Air 01/15/25 07:49 97 Room Air 01/15/25 06:55 01/15/25 04:25 94 Room Air 01/15/25 04:25 Laboratory Results BMP 01/15/25 06:43 Sodium 138 Potassium 3.0 L Chloride 112 H Carbon Dioxide 19 L BUN 44 H Creatinine 2.00 H Glucose 208 H Calcium 8.0 L (4) Diabetes mellitus type 2, controlled 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
[2025-01-15] MEDS ORDERED: MIDODRINE HCL 2.5 MG TAB PO SCH (17:00)
[2025-01-16 08:00] LABS: BUN Creatinine Ratio 19.4 (10-20); Calcium 8.1 mg/dl (8.6-10.3); Creatinine Clr Calc Pharmacy 28.9 ml/min; Magnesium 1.9 mg/dl (1.7-2.4); Potassium 3.2 mmol/L (3.5-5.1)
[2025-01-16] MEDS: predniSONE 20 MG TAB PO SCH (08:01)
[2025-01-16] MEDS: MIDODRINE HCL 2.5 MG TAB PO SCH (08:31)
[2025-01-16] MEDS ORDERED: MIDODRINE HCL 2.5 MG TAB PO SCH (12:00)
[2025-01-16] MEDS: POTASSIUM CHLORIDE CRTAB 20 MEQ TABCR PO ONE (14:14)
--- NOTE | 2025-01-16 15:42 | Hospitalist Progress Note ---
Date of Service January 16, 2025 Assessment & Plan (1) Lactic acidosis: (2) Severe sepsis: (3) Aspiration pneumonitis: (4) Diabetes mellitus type 2, controlled: (5) GERD (gastroesophageal reflux disease): Plan Patient is a 74 yr male with DM2, hypotension on chronic midodrine, GERD, recent bilateral hip fractures s/p repair, and other history as outlined below who presented to the ED today from [facility] with concern for aspiration and with hypoxia. Work-up in the ED revealed an elevated lactate at 8.5, procalcitonin 10.70, elevated creatinine at 2.02 (baseline appears around 1.3-1.4 on review of prior labs). Chest x-ray personally reviewed and shows bibasilar opacities, concerning for aspiration pneumonitis. Pt started on levophed for BP support in the ED with improvement in pressures. Sats appear stable on 15 L via NRB. Septic shock Aspiration pneumonitis Lactic/Metabolic Acidosis Hypoxia secondary to above H/O chronic hypotension on midodrine --CXR: Emphysema with chronic interstitial coarsening. Patchy bibasilar opacities are suspicious for an infectious or inflammatory pneumonitis. --Nasal MRSA positive --BioFire negative -- Blood culture negative to date --Urine culture Tere --Weaned off of Levophed Appreciate critical care input Continue vancomycin, Zosyn> transition to Zyvox,Zosyn Also on IV hydrocortisone, midodrine Received IV fluids Weaned off of supplemental oxygen Aspiration precautions Speech therapy eval Titrate IV hydrocortisone transition to oral prednisone Titrated down midodrine to 2.5 mg 3 times daily PT OT prior to discharge May need short-term rehab on discharge Acute kidney injury on CKD III Likely ATN Creatinine 1.9 today Monitor renal function Avoid nephrotoxic agents as able received IV fluids Hypomagnesemia Hypokalemia Replete electrolytes as needed Sinus bradycardia 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 Asymptomatic Avoid AV daniel blocking agents Consider evaluation with by cardiology as outpatient Check TSH, Lyme screen Insulin-requiring DM2 last A1c 6.3 on 01/04/25 -Hold Metformin - Continue insulin sliding scale - BSG ACHS GERD continue PPI therapy DVT Px: Heparin SQ Code status: DNR/DNI Disposition [facility] likely Saturday Admission and Anticipated Discharge Date Admission Date: January 11, 2025 Subjective Patient is seen and examined at bedside States feeling well today Intermittent cough but otherwise no complaints Denies any dyspnea, chest pain, nausea, vomiting, abdominal pain Review of Systems Review of Systems: All systems reviewed & are unremarkable except as noted in Subjective Physical Exam Physical Exam: Physical Exam: Vitals signs as noted above General Appearance:Thin, frail, no apparent distress, elderly Head: normocephalic, Atraumatic Eyes: normal inspection, EOMI Neck: supple, Trachea midline Respiratory/Chest: Normal breath sounds, CTA, No accessory muscle use Cardiovascular: S1, S2, No murmur, bradycardia Abdomen/GI:Soft, Non tender, Bowel sounds present Extremities/Musculoskeletal:normal inspection, no edema Neurologic/Psych:AAOX3, grossly no focal neurological deficits Skin: normal color, warm Results & Data Results & Data Vital Signs (Past 12 Hours) Vital Signs Temp Pulse Pulse Resp BP Pulse Ox O2 Del Method 01/16/25 15:35 52 L 01/16/25 15:08 36.4 C L 51 L 19 114/63 96 Room Air 01/16/25 10:44 36.2 C L 49 L 18 118/53 L 95 Room Air 01/16/25 09:21 Room Air 01/16/25 07:15 36.6 C 42 L 18 134/66 93 Room Air 01/16/25 06:50 42 L Laboratory Results [facility] 01/16/25 07:04 Sodium 139 Potassium 3.2 L Chloride 112 H Carbon Dioxide 20 L BUN 37 H Creatinine 1.91 H Glucose 110 H Calcium 8.1 L (4) Diabetes mellitus type 2, controlled Diabetes mellitus long-term insulin use: with long-term use Diabetes mellitus complication status: with neurologic complications Diabetes mellitus complication detail: with polyneuropathy Qualified Code(s): E11.42 - Type 2 diabetes mellitus with diabetic polyneuropathy; Z79.4 - terminal manager (current) use of insulin (5) GERD (gastroesophageal reflux disease) Esophagitis presence: esophagitis presence not specified Qualified Code(s): K21.9 - Gastro-esophageal reflux disease without esophagitis
[2025-01-16] MEDS: POTASSIUM CHLORIDE 10 MEQ TABCR PO SCH (21:22)
[2025-01-17 08:01] VITALS: TEMP 97.2
[2025-01-17 08:01] LABS: BUN Creatinine Ratio 21.7 (10-20); Calcium 8.1 mg/dl (8.6-10.3); Creatinine Clr Calc Pharmacy 34.2 ml/min; Potassium 3.8 mmol/L (3.5-5.1)
[2025-01-17 08:16] LABS: Thyroid Stimulating Hormone 3.424 uIu/ml (0.300-4.500)
[2025-01-17 11:12] VITALS: RESP 18; O2SAT 96
--- NOTE | 2025-01-17 12:50 | Hospitalist Progress Note ---
Date of Service January 17, 2025 Assessment & Plan (1) Lactic acidosis: (2) Severe sepsis: (3) Aspiration pneumonitis: (4) Diabetes mellitus type 2, controlled: (5) GERD (gastroesophageal reflux disease): Plan Patient is a 74 yr male with DM2, hypotension on chronic midodrine, GERD, recent bilateral hip fractures s/p repair, and other history as outlined below who presented to the ED today from [facility] with concern for aspiration and with hypoxia. Work-up in the ED revealed an elevated lactate at 8.5, procalcitonin 10.70, elevated creatinine at 2.02 (baseline appears around 1.3-1.4 on review of prior labs). Chest x-ray personally reviewed and shows bibasilar opacities, concerning for aspiration pneumonitis. Pt started on levophed for BP support in the ED with improvement in pressures. Sats appear stable on 15 L via NRB. Septic shock Aspiration pneumonitis Lactic/Metabolic Acidosis Hypoxia secondary to above H/O chronic hypotension on midodrine --CXR: Emphysema with chronic interstitial coarsening. Patchy bibasilar opacities are suspicious for an infectious or inflammatory pneumonitis. --Nasal MRSA positive --BioFire negative -- Blood culture negative to date --Urine culture Tere --Weaned off of Levophed Appreciate critical care input Continue vancomycin, Zosyn> transition to Zyvox,Zosyn Also on IV hydrocortisone, midodrine Received IV fluids Weaned off of supplemental oxygen Aspiration precautions Speech therapy eval Titrate IV hydrocortisone transition to oral prednisone--continue tapering course Plan to discharge to SNF today if patient agreeable Acute kidney injury on CKD III Likely ATN Creatinine 1.6 today Monitor renal function Avoid nephrotoxic agents as able received IV fluids Hypomagnesemia Hypokalemia Replete electrolytes as needed Sinus bradycardia 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 Asymptomatic Avoid AV daniel blocking agents Consider evaluation with by cardiology as outpatient Normal TSH, Lyme screen Advised ZIO monitor as outpatient Insulin-requiring DM2 last A1c 6.3 on 01/04/25 -Hold Metformin - Continue insulin sliding scale - BSG ACHS GERD continue PPI therapy DVT Px: Heparin SQ Code status: DNR/DNI Disposition [facility] today Admission and Anticipated Discharge Date Admission Date: January 11, 2025 Subjective Patient is seen and examined at bedside No new complaints Prefers to be discharged today Cough much improved Denies any dyspnea, chest pain, dizziness, nausea, vomiting, abdominal pain Review of Systems Review of Systems: All systems reviewed & are unremarkable except as noted in Subjective Physical Exam Physical Exam: Physical Exam: Vitals signs as noted above General Appearance:Thin, frail, no apparent distress, elderly Head: normocephalic, Atraumatic Eyes: normal inspection, EOMI Neck: supple, Trachea midline Respiratory/Chest: Normal breath sounds, CTA, No accessory muscle use Cardiovascular: S1, S2, No murmur, bradycardia Abdomen/GI:Soft, Non tender, Bowel sounds present Extremities/Musculoskeletal:normal inspection, no edema Neurologic/Psych:AAOX3, grossly no focal neurological deficits Skin: normal color, warm Results & Data Results & Data Vital Signs (Past 12 Hours) Vital Signs Temp Pulse Resp BP Pulse Ox O2 Del Method 01/17/25 11:02 36.2 C L 53 L 18 121/68 96 Room Air 01/17/25 08:00 36.2 C L 49 L 17 130/69 93 Room Air 01/17/25 03:54 36.5 C 50 L 18 121/65 94 Room Air Laboratory Results [facility] 01/17/25 06:43 Sodium 139 Potassium 3.8 Chloride 112 H Carbon Dioxide 19 L BUN 35 H Creatinine 1.61 H D Glucose 281 H Calcium 8.1 L (4) Diabetes mellitus type 2, controlled Diabetes mellitus penitentiary insulin use: with buttermaker use Diabetes mellitus complication status: with neurologic complications Diabetes mellitus complication detail: with polyneuropathy Qualified Code(s): E11.42 - Type 2 diabetes mellitus with diabetic polyneuropathy; Z79.4 - USP (current) use of insulin (5) GERD (gastroesophageal reflux disease) Esophagitis presence: esophagitis presence not specified Qualified Code(s): K21.9 - Gastro-esophageal reflux disease without esophagitis
--- NOTE | 2025-01-17 13:00 | Discharge Summary ---
Date of Service January 17, 2025 Admission HPI Per Admitting Provider This is a 74 y/o male with DM2, hypotension on chronic midodrine, GERD, recent bilateral hip fractures s/p repair, and other history as outlined below who presented to the ED today from [facility] with concern for aspiration and with hypoxia. Per report from , pt was eating breakfast when he appeared to aspirate and start vomiting. He continue to "decline" after this event and was noted to be hypoxic so oxygen via OxyMask applied. Sats with O2 were reportedly 80% when EMS arrived. NRB applied and sats improved to ~90%. BPs were reportedly low with systolic in the 50s so pt started on Levophed with improvement of systolic to the 90s. ED RN contacted facility and pt did not receive his morning midodrine today due to the episode of possible aspiration and emesis. Pt notes ongoing issues with fatigue and weakness since being discharged from the hospital last month. This seems to particularly worsen throughout the day, and he requires more assistance by evenings. His son notes that pt continues to try to ambulate without assistance and thus has had falls since being at . Pt notes ongoing issues with hip pain since surgery. Denies issues moving bowels or with urination. Pt's son notes intermittent issues with confusion but this has been no worse than prior. Admission Exam Per Admitting Provider GENERAL APPEARANCE: AxOx4, chronically ill gentleman, no acute distress. HEENT: NC, AT. MMM. EOMI, clear conjunctiva, oropharynx clear. NECK: Supple without lymphadenopathy. No stiffness or restricted ROM. HEART: Normal rate and regular rhythm, normal S1/S1, no m/r/g LUNGS: CTAB, moving air well. nonrebreather 15 L ABDOMEN: Soft, nontender, nondistended with good bowel sounds heard. BACK: No CVAT, no obvious deformity. EXTREMITIES: Without cyanosis, clubbing or edema. NEUROLOGICAL: Grossly nonfocal. Alert and oriented, moving all 4 extremities. CN not formally tested but appear grossly intact. Skin: Warm and dry without any rash. Principal Diagnosis Septic shock Aspiration pneumonitis Lactic/Metabolic Acidosis Acute kidney injury on CKD III Sinus bradycardia Left anterior fascicular block Hypomagnesemia Hypokalemia Discharge Data Allergies Allergy/AdvReac Type Severity Reaction Status Date / Time No Known Allergies Allergy Verified 02/28/24 17:00 Consultations 01/11/25 16:55 Consult [employer] Routine Procedures Performed Laboratory Results WBC 11.98 K/ul (4.8-10.8) H 01/14/25 04:03 RBC 3.52 M/uL (4.70-6.10) L 01/14/25 04:03 Hgb 10.6 g/dl (14.0-18.0) L 01/14/25 04:03 POC Hgb 15.0 g/dl (14.0-18.0) 01/11/25 11:50 Hct 31.5 % (42.0-52.0) L 01/14/25 04:03 POC Hct 44 % (42-52) 01/11/25 11:50 MCV 89.5 fL (80.0-100.0) 01/14/25 04:03 MCH 30.1 pg (25.0-34.0) 01/14/25 04:03 MCHC 33.7 g/dL (32.0-36.0) 01/14/25 04:03 RDW Std Deviation 46.3 fL (36.4-46.3) 01/14/25 04:03 RDW Coeff of Cassia 14.2 % (11.5-14.5) 01/14/25 04:03 Plt Count 193 K/uL (130-400) 01/14/25 04:03 MPV 9.5 fL (9.4-12.4) 01/14/25 04:03 Immature Gran % (Auto) 1.3 % 01/14/25 04:03 Neut % (Auto) 83.4 % 01/14/25 04:03 Lymph % (Auto) 12.4 % 01/14/25 04:03 [place] % (Auto) 2.7 % 01/14/25 04:03 Eos % (Auto) 0.0 % 01/14/25 04:03 Baso % (Auto) 0.2 % 01/14/25 04:03 Neut # (Auto) 10.00 K/uL (1.40-6.50) H 01/14/25 04:03 Lymph # (Auto) 1.48 K/uL (1.20-3.40) 01/14/25 04:03 [place] # (Auto) 0.32 K/uL (0.11-0.59) 01/14/25 04:03 Eos # (Auto) 0.00 K/uL (0.00-0.50) 01/14/25 04:03 Baso # (Auto) 0.02 K/uL (0.00-0.20) 01/14/25 04:03 Immature Gran # (Auto) 0.16 K/uL (0.01-0.20) 01/14/25 04:03 Echinocytes 1+ 01/12/25 03:55 PT 11.8 Seconds (9.0-12.0) 01/11/25 11:50 INR 1.1 (0.9-1.1) 01/11/25 11:50 VBG pH 7.23 (7.36-7.41) L 01/11/25 20:18 VBG pCO2 33 mmHg (38-50) L 01/11/25 20:18 VBG pO2 37 mmHg 01/11/25 20:18 VBG HCO3 14 mmol/L 01/11/25 20:18 VBG O2 Saturation 62.5 % 01/11/25 20:18 VBG Base Excess -12.6 mEq/L 01/11/25 20:18 POC Sodium 142 mmol/L (135-144) 01/11/25 11:50 Sodium 139 mmol/L (136-145) 01/17/25 06:43 POC Potassium 3.8 mmol/L (3.3-5.0) 01/11/25 11:50 Potassium 3.8 mmol/L (3.5-5.1) 01/17/25 06:43 POC Chloride 106 mmol/L (101-112) 01/11/25 11:50 Chloride 112 mmol/L (98-107) H 01/17/25 06:43 Carbon Dioxide 19 mmol/L (21-32) L 01/17/25 06:43 POC Total CO2 18 mmol/L (24-31) L 01/11/25 11:50 Anion Gap 8 (3-11) 01/17/25 06:43 POC Anion Gap 22.0 mmol/L (16-25) 01/11/25 11:50 POC BUN 44 mg/dl (7-18) H 01/11/25 11:50 BUN 35 mg/dl (6-23) H 01/17/25 06:43 Creatinine 1.61 mg/dl (0.6-1.4) H D 01/17/25 06:43 POC Creatinine 2.2 mg/dl (0.6-1.3) H 01/11/25 11:50 Est Cr Clr Drug Dosing 34.2 ml/min 01/17/25 06:43 eGFR 44.05 01/17/25 06:43 BUN/Creatinine Ratio 21.7 (10-20) H 01/17/25 06:43 Glucose 281 mg/dl (70-99(Fasting)) H 01/17/25 06:43 POC Glucose 279 mg/dl (70-99) H 01/17/25 12:06 POC Glucose (other) 153 mg/dl (70-99) H 01/11/25 11:50 Lactate 1.3 mmol/L (0.4-2.0) 01/13/25 04:47 Calcium 8.1 mg/dl (8.6-10.3) L 01/17/25 06:43 POC Ioniz Calcium Paulino 1.14 mmol/l (1.12-1.32) 01/11/25 11:50 Phosphorus 3.5 mg/dl (2.5-4.9) 01/14/25 04:03 Magnesium 2.0 mg/dl (1.7-2.4) 01/17/25 06:43 Total Bilirubin 0.5 mg/dl (0.2-1.0) 01/14/25 04:03 Direct Bilirubin 0.1 mg/dl (0-0.2) 01/14/25 04:03 AST 31 U/L (13-39) 01/14/25 04:03 ALT 18 U/L (7-52) 01/14/25 04:03 Alkaline Phosphatase 204 U/L (34-104) H 01/14/25 04:03 Troponin I High Sens 17.8 pg/ml (0-20) 01/11/25 11:50 B-Natriuretic Peptide 110 pg/ml (0-100) H 01/11/25 12:03 Total Protein 5.4 gm/dl (6.0-8.3) L 01/14/25 04:03 Albumin 2.8 gm/dl (3.4-5.0) L 01/14/25 04:03 Globulin 3.8 gm/dl (2.5-4.0) 01/11/25 11:50 Albumin/Globulin Ratio 0.9 (0.9-2) 01/11/25 11:50 Procalcitonin 10.70 ng/ml (0-0.5) H 01/11/25 11:50 TSH 3.424 uIu/ml (0.300-4.500) 01/17/25 06:43 Urine Color Yellow 01/11/25 16:05 Urine Appearance Cloudy (Clear) A 01/11/25 16:05 Urine pH 5.5 (4.5-7.5) 01/11/25 16:05 Ur Specific [place] 1.014 (1.000-1.030) 01/11/25 16:05 Urine Protein 2+ (Negative) H 01/11/25 16:05 Urine Glucose (UA) Negative (Negative) 01/11/25 16:05 Urine Ketones Negative (Negative) 01/11/25 16:05 Urine Blood 1+ (Negative) H 01/11/25 16:05 Urine Nitrite Negative (Negative) 01/11/25 16:05 Urine Bilirubin Negative (Negative) 01/11/25 16:05 Urine Urobilinogen Negative (Negative) 01/11/25 16:05 Ur Leukocyte Esterase 3+ (Negative) H 01/11/25 16:05 Urine WBC (Auto) >50 /hpf (0-5) H 01/11/25 16:05 Urine RBC (Auto) 0-2 /hpf (0-2) 01/11/25 16:05 U Hyaline Cast (Auto) 3-5 /lpf (0-2) H 01/11/25 16:05 U Epithel Cells (Auto) 0-2 /hpf (0-2) 01/11/25 16:05 Urine Bacteria (Auto) None Seen (None Seen) 01/11/25 16:05 Urine Yeast Present (None Prsent) A 01/11/25 16:05 Nasal Screen MRSA (PCR) Positive (Negative) A 01/11/25 15:25 Random Vancomycin 14.0 mcg/ml (10-20) 01/15/25 06:43 Adenovirus (PCR) Not Detected (NotDetected) 01/11/25 Unknown B. pertussis DNA (PCR) Not Detected (NotDetected) 01/11/25 Unknown B.parapertussis DNA PCR Not Detected (NotDetected) 01/11/25 Unknown Lyme Disease Screen Negative (Negative) 01/17/25 06:43 C. pneumoniae DNA (PCR) Not Detected (NotDetected) 01/11/25 Unknown Coronavirus OC43 (PCR) Not Detected (NotDetected) 01/11/25 Unknown Coronavirus HKU1 (PCR) Not Detected (NotDetected) 01/11/25 Unknown Coronavirus 229E (PCR) Not Detected (NotDetected) 01/11/25 Unknown SARS-CoV-2 (PCR) Not Detected (NotDetected) 01/11/25 Unknown Coronavirus NL63 (PCR) Not Detected (NotDetected) 01/11/25 Unknown Human Metapneumovir PCR Not Detected (NotDetected) 01/11/25 Unknown Influenza Type A (PCR) Not Detected (NotDetected) 01/11/25 Unknown Influenza Type B (PCR) Not Detected (NotDetected) 01/11/25 Unknown Urine Legionella Ag SEE NOTE 01/11/25 18:00 M. pneumoniae (PCR) Not Detected (NotDetected) 01/11/25 Unknown Parainfluenza 1 (PCR) Not Detected (NotDetected) 01/11/25 Unknown Parainfluenza 2 (PCR) Not Detected (NotDetected) 01/11/25 Unknown Parainfluenza 3 (PCR) Not Detected (NotDetected) 01/11/25 Unknown Parainfluenza 4 (PCR) Not Detected (NotDetected) 01/11/25 Unknown RSV (PCR) Not Detected (NotDetected) 01/11/25 Unknown Entero/Rhino (PCR) Not Detected (NotDetected) 01/11/25 Unknown Impressions Chest X-Ray 01/11/25 11:42 XR chest 1V portable HISTORY: 74 years-old Male Dyspnea acute shortness of breath COMPARISON: November 21, 2024 TECHNIQUE: AP view of the chest FINDINGS: Cardiomediastinal and hilar silhouettes are within normal limits. Emphysema with chronic interstitial coarsening. No pneumothorax or large pleural effusion. There are mild patchy left greater than right bibasilar predominant airspace opacities. Atherosclerosis of the aorta. Probable skinfold of the left apex. Bones appear grossly intact. IMPRESSION: 1. Emphysema with chronic interstitial coarsening. 2. Patchy bibasilar opacities are suspicious for an infectious or inflammatory pneumonitis. ACT 112: Negative or not required by law. The above report was generated using voice recognition software. It may contain grammatical, syntax or spelling errors. Electronically signed by: Martin Newton M.D. 01/11/2025 12:05 PM Hospital Course (1) Lactic acidosis: (2) Severe sepsis: (3) Aspiration pneumonitis: (4) Diabetes mellitus type 2, controlled: (5) GERD (gastroesophageal reflux disease): Plan Patient is a 74 yr male with DM2, hypotension on chronic midodrine, GERD, recent bilateral hip fractures s/p repair, and other history as outlined below who presented to the ED today from [facility] with concern for aspiration and with hypoxia. Work-up in the ED revealed an elevated lactate at 8.5, procalcitonin 10.70, elevated creatinine at 2.02 (baseline appears around 1.3-1.4 on review of prior labs). Chest x-ray personally reviewed and shows bibasilar opacities, concerning for aspiration pneumonitis. Pt started on levophed for BP support in the ED with improvement in pressures. Sats appear stable on 15 L via NRB. Septic shock Aspiration pneumonitis Lactic/Metabolic Acidosis Hypoxia secondary to above H/O chronic hypotension on midodrine --CXR: Emphysema with chronic interstitial coarsening. Patchy bibasilar opacities are suspicious for an infectious or inflammatory pneumonitis. --Nasal MRSA positive --BioFire negative -- Blood culture negative to date --Urine culture Tere --Weaned off of Levophed Appreciate critical care input Continue vancomycin, Zosyn> transition to Zyvox,Zosyn Also on IV hydrocortisone, midodrine Received IV fluids Weaned off of supplemental oxygen Aspiration precautions Speech therapy eval Titrate IV hydrocortisone transition to oral prednisone--continue tapering course Plan to discharge to SNF today if patient agreeable Acute kidney injury on CKD III Likely ATN Creatinine 1.6 today Monitor renal function Avoid nephrotoxic agents as able received IV fluids Hypomagnesemia Hypokalemia Replete electrolytes as needed Sinus bradycardia 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 Asymptomatic Avoid AV daniel blocking agents Consider evaluation with by cardiology as outpatient Normal TSH, Lyme screen Advised ZIO monitor as outpatient Insulin-requiring DM2 last A1c 6.3 on 01/04/25 -Hold Metformin - Continue insulin sliding scale - BSG ACHS GERD continue PPI therapy DVT Px: Heparin SQ Code status: DNR/DNI Disposition [facility] today Total Time Total Time Spent Total Time Spent (In Minutes): 44 minutes Discharge Plan Discharge Items Patient Disposition: Transfer [facility] Fac Reason For Visit: SEVERE SEPSIS, LACTIC ACIDOSIS Discharge Diagnosis: Septic shock Aspiration pneumonitis Lactic/Metabolic Acidosis Acute kidney injury on CKD III Sinus bradycardia Left anterior fascicular block Hypomagnesemia Hypokalemia Activity: Per Instructions section Exercise/Sports: Gradually increase as tolerated Non-emergency contact: Primary Care Provider and Artist Consultant Call non-emergency contact if: you have any medication questions, your symptoms worsen, your pain is concerning for you and you have a fever Follow-up/Referrals: Jennifer Soni [Primary Care Provider] - Diet: Carb Consistent or DM2 Diet Texture: Easy to Chew Addtl Attending Provider Instructions: Follow-up with your primary care physician in 1 week upon discharge from rehab facility Follow-up with your blanking machine operator for evaluation of low heart rate as advised -- Discussed with your primary care physician regarding ZIO monitor to rule out any arrhythmias/pauses -- Complete antibiotic course Augmentin, Zyvox as prescribed for pneumonia --Get blood work (basic metabolic panel, magnesium) in 1 week to monitor renal function and electrolytes -- Complete prednisone tapering course as prescribed. Prednisone tapering course: Take prednisone 30 mg daily for 2 days, then take 20 mg daily for 2 days, then take 10 mg daily for 2 days and stop -- Monitor your blood pressure regularly while on steroids. Discuss with your physician for further adjustment of medications as needed Seek immediate medical attention if your symptoms reoccur or worsen Please review medication list provided on discharge for any medication changes as instructed. Please call if you have any questions or problems. You can reach a [facility] hospitalist on duty at [facility] 24 hours a day by calling [phone] Pending Studies at Discharge: No Stand-Alone Forms: My [facility] Skilled Items Patient informed of condition?: Yes DNR: Yes Discharge Level of Care: Skilled Communicable Disease: No Discharge Prognosis: Stable Lines: None Urinary Catheter: No Medications and DC Order Prescriptions: New linezolid 600 mg Tablet 600 mg PO BID Qty: 3 0RF potassium chloride 10 mEq Tablet,Er Particles/Crystals 10 meq PO DAILY Qty: 5 0RF magnesium chloride [Mag 64] 64 mg Tablet,Delayed Release (Dr/Ec) 64 mg PO BID Qty: 10 0RF Advanced Probiotic 625 mg (10 billion cell) Capsule 1 cap PO DAILY Qty: 5 0RF prednisone 10 mg Tablet 10 mg PO UD Qty: 12 0RF Rx Instructions: Take prednisone 30 mg daily for 2 days, then take 20 mg daily for 2 days, then take 10 mg daily for 2 days and stop amoxicillin-pot clavulanate [Augmentin] 500-125 mg tablet 1 tab PO BID Qty: 3 0RF Continued metformin 1,000 mg Tablet 1,000 mg PO .DAILY AFTER SUPPER tramadol 50 mg Tablet 50 mg PO Q6 PRN (Reason: pain) Qty: 30 0RF gabapentin 100 mg Capsule 100 mg PO TID ipratropium-albuterol 0.5 mg-3 mg(2.5 mg base)/3 mL Solution For Nebulization 3 ml INHALATION BID thiamine HCl (vitamin B1) 100 mg Tablet 100 mg PO DAILY pantoprazole 20 mg tablet,delayed release (DR/EC) 20 mg PO DAILYBB insulin aspart U-100 [Novolog FlexPen U-100 Insulin] 100 unit/mL (3 mL) insulin pen 1 sliding scale dose subcut AC Rx Instructions: per son insulin glargine [Lantus Solostar U-100 Insulin] 100 unit/mL (3 mL) insulin pen 15 unit SUBCUT QAM midodrine 5 mg tablet 5 mg PO TID Qty: 90 0RF Rx Instructions: do not give last dose of day after 6PM or within 4 hrs of bedtime Discharge Orders: Discharge Order (Routine); Ordered 01/17/25 Ordered By: Tevin Casarez Admission Data Admit Date/Time: 01/11/25 15:28 Attending Provider: Tevin Casarez Admit Provider: Stefania Tovar Primary Care Provider: Jennifer Soni Other Providers: Yariel Brumfield; Peng Taveras
[2025-01-17 14:22] VITALS: BP 116/60; PULSE 48
[2025-01-18] MEDS ORDERED: POTASSIUM CHLORIDE 10 MEQ TABCR PO SCH (09:00)
[2025-01-18] MEDS ORDERED: predniSONE 10 MG TABLET PO SCH (09:00)
== END 2025-01-17 14:45 | DRG 871 ==
LOC: ED 11:36 → SUATTDRO 15:28 → 1E 15:28 → 2W 01-14 20:38